=== PATIENT | female | born 1985 | race Two or more races ===

== ENCOUNTER 2025-02-09 19:59 | Outpatient (REF) | payer BC, SELFPAY ==
--- OUTSIDE RECORDS SUMMARY | 2025-02-09 14:40 | XMS_ITS | Encounter Summary ---
Author Organization [facility] Address [address] [place] [address] Care Team Providers Care Public Affairs Manager Name Role Phone Unavailable Primary Care Provider Unavailabl e Reason for Visit * Reason Comments Well Women Visit Routine Visit STI Screening Encounter Details Date Type Department Care Team (Latest Contact Info) Description 02/09/2025 2:40 PM EDT Routine [facility] [address] [facility] [place] [address] Krupa Hernandez PA [address] [facility] [address] [place], [facility]11 Well woman exam with routine gynecological exam; Second trimester ; 15 weeks gestation of ; Vaginal discharge; STD exposure Social History Tobacco Use Types Packs/Day Years Used Date Smoking Tobacco: Never Assessed Estimated Date of Delivery Comme nts Yes 07/29/2025 Based on Ultraso und Sex and Gender Information Value Date Recorded Sex Assigned at Female 09/29/2024 1:58 PM EST Legal Sex Female 6:58 PM EDT Gender Identity Female 09/29/2024 1:58 PM EST Sexual Orientation Bisexual 09/29/2024 1: 58 PM EST documented as of this encounter Last Filed Vital Signs Vital Sign Reading Time Taken Comments Blood Pressure 118/78 02/09/2025 3:21 PM EDT Pulse - - Temperature - - Respiratory Rate - - Oxygen Saturation - - Inhaled Oxygen Concentration - - Weight 123 kg (271 lb 12.8 oz) 02/09/2025 3:21 P M EDT Height - - Body Mass Index - - documented in this encounter Plan of Treatment Upcoming Encounters Date Type Department Care Team (Late st Contact Info) Description 03/09/2025 10:50 AM EDT Routine [facility] OB [address] [facility] [place] [phone] Greg Anderson, DO 102 [place] [address] 03/18/2025 9:00 AM EDT Office Visit [facility] OB [address] [facility] [place] [place] [address] Greg Anderson, DO [address] [place], [place] [id number] Scheduled Orders Name Type Priority Associated Diagnoses Orde r Schedule SURESWAB(R) ADVANCED VAGINITIS PLUS, TMA Pathology and Cytology Routine Vaginal discharge Ordered: 02/09/2025 CHLAMYDIA TRACHOMATIS (GENITO/STI) Lab Routine STD exposure Ordered: 02/09/2025 Neisseria gonorrhea DNA probe, direct Lab Routine STD exposure Ordered: 02/09/2025 Alpha fetoprotein, maternal Lab Routine Second trimester 15 weeks gestation of Expected: 02/09/2025 (Approximate), Expires: 08/11/2025 Pap Smear Pathology and Cytology Routine Well woman exam with routine gynecological exam Ordered: 02/09/2025 HPV DNA probe, amplified Microbiology Routine Well woman exam with routine gynecological exam Ordered: 02/09/2025 documented as of this encounter Procedures Procedure Name Priority Date/Time Associated Diagnosis Comments POCT URINALYSIS DIPSTICK Routine 02/09/2025 4:09 PM EDT Second trimester 15 weeks gestation of documented in this encounter Results * (ABNORMAL) POCT urinalysis dipstick manually resulted (02/09/2025 4:09 PM EDT) Color, UA Yellow Clarity, UA Clear Glucose, UA Negative Negative - 2000(110) ++++ mg/dL Bilirubin, UA Negative Negative - 4(70) +++ mg/dL Ketones, UA Positive Negative - 160(16) ++++ mg/dL Spec Grav, UA 1.020 1 - 1.03 Blood, UA Negative Negative - 50 Javi/mcL pH, UA 6.5 5 - 9 Protein, UA Negative Negative - 2000(20) ++++ mg/dL Urobilinogen, UA 1.0 0.2 - 12 mg/dL Leukocytes, UA Negative Negative - 500+++ Tomas/mcL Nitrite, UA Negative Negative - Positive Urine 02/09/2025 4:09 PM EDT Krupa PRINCE POINT OF CARE TEST ENTER/EDIT OR DERABLES Final Result documented in this encounter Visit Diagnoses Diagnosis Well woman exam with routine gynecological exam Routine gynecological examination Second trimester state, incidental 15 weeks gestation of Vaginal discharge Leukorrhea, not specified as infective STD exposure documented in this encounter
--- OUTSIDE RECORDS SUMMARY | 2025-02-09 20:04 | XMS_ITS | Encounter Summary ---
Author Organization [facility] Address [address] [facility] [place] [address] Care Team Providers Care Supervisor Pipe Finishing Name Role Phone Unavailable Primary Care Provider Unavailabl e Encounter Details Date Type Department Care Team (Late st Contact Info) Description 11/18/2024 Abstract [facility] OB [address] [place] [address] Greg Anderson DO [address] [place], [facility]11 Social History Tobacco Use Types Packs/Day Years Used Date Smoking Tobacco: Never Assessed Comments Unknown Sex and Gender Information Value Date Recorded Sex Assigned at Female 09/29/2024 1:58 PM EST Legal Sex Female 6:58 PM EDT Gender Identity Female 09/29/2024 1:58 PM EST Sexual Orientation Bisexual 09/29/2024 1: 58 PM EST documented as of this encounter Plan of Treatment Upcoming Encounters Date Type Department Care Team (Late st Contact Info) Description 03/09/2025 10:50 AM EDT Routine [facility] OB [address] [place] [address] Greg Anderson DO [address] [place], [facility]11 03/18/2025 9:00 AM EDT Office Visit [facility] [place] [address] Greg Anderson, [address] [place], [place] [id number] documented as of this encounter Visit Diagnoses Not on filedocumented in this encounter
--- OUTSIDE RECORDS SUMMARY | 2025-02-09 20:04 | XMS_ITS | Encounter Summary ---
Author Organization [facility] Address [address] [facility] [place] [address] Care Team Providers Care Building Stonecutter Name Role Phone Unavailable Primary Care Provider Unavailabl e Encounter Details Date Type Department Care Team (Late st Contact Info) Description 01/28/2025 Abstract [facility] [address] [facility] [place] [address] Greg Anderson DO [address] [place] [address] Radha [place], [place] [address] Social History Tobacco Use Types Packs/Day Years [...] Description 03/09/2025 10:50 AM EDT Routine [facility] [address] [facility] [place] [address] Greg Anderson DO [facility] [place] [address] 03/18/2025 9:00 AM EDT Office Visit [facility] [place] [place] [phone] Greg Anderson, DO [address] [facility] [address] [place], [place] [id number] documented as of this encounter Visit Diagnoses Not on filedocumented in this encounter
--- OUTSIDE RECORDS SUMMARY | 2025-02-09 20:04 | XMS_ITS | Clinical Summary ---
Author Organization [facility] tem Address [id number] [address] [place] [address] Care Team Providers Care Copywriter Name Role Phone Unavailable Primary Care Provider Unavailabl e Allergies Active Allergy Reactions Criticality Noted Date Comments Sulfa (Sulfonamide Antibiotics) Swelling 01/07 Medications omeprazole (PriLOSEC) 40 mg capsule Take 1 capsule (40 mg total) by mouth in the morning. Active venlafaxine XR (EFFEXOR-XR) 150 mg 24 hr capsule Take 1 capsule (150 mg total) by mouth in the morning. Active labetaloL (NORMODYNE) 200 mg tablet Take 1 tablet (200 mg total) by mouth 3 (three) times a day. Active no115/iron/foli c acid ( 19 ORAL) Take by mouth. Active Encounters Date Type Department Care Team Description 01/25/2025 Abstract [facility]aternal- Medicine at [facility] [address] [place] [phone] Venkat Landin MD from Last 3 Months Social History Tobacco Use Types Packs/Day Years Used Date Smoking Tobacco: Never Assessed Estimated Date of Delivery Comme nts Yes 07/29/2025 Based on Ultraso und Sex and Gender Information Value Date Recorded Sex Assigned at Not on file Legal Sex Female 11:20 AM EDT Gender Identity Not on file Sexual Orientation Not on file Plan of Treatment Upcoming Encounters Date Type Department Care Team (Late st Contact Info) Description 03/11/2025 9:15 AM EDT Appointment [facility] [address] [place] [phone] 03/11/2025 10:30 AM EDT Office Visit Maternal- Medicine at [facility] [address] [place] [phone] Venkat Landin MD [address] [place] [address] Health Maintenance Due Date Last Done Comments Depression Screening 1999 Tobacco Screening 1999 Adult BMI Screening 2005 DTaP,Tdap and Td Vaccines (1 - Tdap) 2006 Pap Smear 2008 Influenza Vaccine 05/10/2025 Medical Devices Not on file Procedures Procedure Name Priority Date/Time Associated Diagnosis Comments TYPE AND SCREEN Routine 01/07/2025 HEPATITIS B SURFACE ANTIGEN Routine 01/07/2025 HEPATITIS C(HCV) ANTIBODY W/REFLEX TO PCR Routine 01/07/2025 HIV 1&2 AB/AG SCREEN (P24 AG) Routine 01/07/2025 SYPHILIS TOTAL(UNKNOWN SYPHILIS STATUS) Routine 01/07/2025 DRUG SCREEN, URINE Routine 01/07/2025 from Last 3 Months Results * HIV 1&2 AB/AG Screen (P24 AG) (01/07/2025) HIV 1&2 AB/AG NON REACTIVE MAN UALLY TRANSCRIBED RESULTS Blood Venous blood / Unknown us Not In System Ref Prov LAB BLOOD ORDERABLES Lucia l Result MANUALLY TRANSCRIBED RESULTS * Syphilis Total (Unknown Syphilis Status) (01/07/2025) Syphilis NON REACTIVE MANUALL Y TRANSCRIBED RESULTS Blood Venous blood / Unknown us Not In System Ref Prov LAB BLOOD ORDERABLES Lucia l Result Performing Organization Address [facility] Co de Phone Number MANUALLY TRANSCRIBED RESULTS * Hepatitis C(HCV) Ab w/ Reflex to PCR (01/07/2025) Hepatitis C Antibody NON REACTIVE MANUALLY TRANSCRIBED RESULTS Blood Venous blood / Unknown us Not In System Ref Prov LAB BLOOD ORDERABLES Lucia l Result Performing Organization Address [facility] Co de Phone Number MANUALLY TRANSCRIBED RESULTS * Drug Screen, Urine (01/07/2025) Opiates NEGATIVE MANUALLY TRANSCRIBED RESULTS Amphetamine/Methamp hetamine NEGATIVE MANUALLY TRANSCRIBED RESULTS Cocaine Metabolite NEGATIVE M ANUALLY TRANSCRIBED RESULTS Phencyclidine NEGATIVE MANUAL LY TRANSCRIBED RESULTS Thc Marijuana, Urine NEGATIVE MANUALLY TRANSCRIBED RESULTS Barbiturates NEGATIVE MANUALL Y TRANSCRIBED RESULTS Benzodiazepines NEGATIVE MANU ALLY TRANSCRIBED RESULTS Urine us Not In System Ref Prov URINE ORDERABLES Final Re sult Performing Organization Address [facility] de Phone Number MANUALLY TRANSCRIBED RESULTS * Hepatitis B surface antigen (01/07/2025) Hepatitis B Surface Antigen NEGATIVE MANUALLY TRANSCRIBED RESULTS Blood Venous blood / Unknown us Not In System Ref Prov LAB BLOOD ORDERABLES Lucia l Result Performing Organization Address [facility] Co de Phone Number MANUALLY TRANSCRIBED RESULTS * Type and screen (01/07/2025) Abo/Rh(D) O Positive MANUALLY TRANSCRIBED RESULTS Antibody Screen NEGATIVE MANUALLY TRANSCRIBED RESULTS Blood Venous blood / Unknown us Not In System Ref Prov BLOOD BANK TEST ORDERABLE S Final Result Performing Organization Address [facility] Co de Phone Number MANUALLY TRANSCRIBED RESULTS from Last 3 Months Insurance ANTH
--- OUTSIDE RECORDS SUMMARY | 2025-02-09 20:04 | XMS_ITS | Encounter Summary ---
Author Organization [facility] Address [address] [facility] [place] [address] Care Team Providers Care Manager Floor Name Role Phone Unavailable Primary Care Provider Unavailabl e Encounter Details Date Type Department Care Team (Late st Contact Info) Description 02/08/2025 Abstract [facility] OB [address] [place] [address] Greg Anderson DO [address] [place] [address] Radha [place], [place] [address] Social History Tobacco Use Types Packs/Day Years [...] Description 03/09/2025 10:50 AM EDT Routine [facility] [address] [facility] [place] [address] Greg Anderson DO [facility] [place] [address] 03/18/2025 9:00 AM EDT Office Visit [facility] [place] [place] [address] Greg Anderson, DO [address] [facility] [address] [place] [place], [place] [id number] documented as of this encounter Visit Diagnoses Not on filedocumented in this encounter
--- OUTSIDE RECORDS SUMMARY | 2025-02-09 20:04 | XMS_ITS | Encounter Summary ---
Author Organization [facility] Address [address] [facility] [place] [address] Care Team Providers Care Senior Software Qa Engineer Name Role Phone Unavailable Primary Care Provider Unavailabl e Encounter Details Date Type Department Care Team (Late st Contact Info) Description 01/08/2025 Abstract [facility] [address] [facility] [place] [address] Greg Anderson DO [address] [place] [address] Radha [place], [place] [address] Social History Tobacco Use Types Packs/Day Years [...] Description 03/09/2025 10:50 AM EDT Routine [facility] [address] [facility] [place] [address] Greg Anderson DO [facility] [place] [address] 03/18/2025 9:00 AM EDT Office Visit [facility] [place] [place] [address] Greg Anderson, DO [address] [facility] [address] [place] [place], [place] [phone] documented as of this encounter Visit Diagnoses Not on filedocumented in this encounter
--- OUTSIDE RECORDS SUMMARY | 2025-02-09 20:04 | XMS_ITS | Clinical Summary ---
Author Organization [facility] Address [address] [place] [address] Care Team Providers Care Line Producer Name Role Phone Unavailable Primary Care Provider Unavailabl e Allergies Active Allergy Reactions Criticality Noted Date Comments Sulfa Antibiotics Swelling 03/30/2016 Medications Multiple Vitamins-Mineral s (THERAPEUTIC MULTIVITAMIN-MIN ERALS) tablet Take 1 tablet by mouth daily Active Phentermine HCl 30 MG TBDP Take 1 tablet by mouth daily Active Family History Medical History Relation Name Comments Heart Disease Father Kidney Disease Father Relation Name Status Comments Father Mother Alive Social History Tobacco Use Types Packs/Day Years Used Date Smoking Tobacco: Never Alcohol Use Standard Drinks/Week Comments Yes 0 (1 standard drink = 0.6 oz pur e alcohol) very occasional Comments Unknown Sex and Gender Information Value Date Recorded Sex Assigned at Not on file Legal Sex Female 4:35 PM EDT Gender Identity Not on file Sexual Orientation Not on file Last Filed Vital Signs Vital Sign Reading Time Taken Comments Blood Pressure 135/87 03/30/2016 3:03 PM EDT Pulse 108 03/30/2016 3:03 PM EDT Temperature 36.7 C (98.1 F) 03/30/2016 3:03 PM EDT Respiratory Rate 16 03/30/2016 3:03 PM EDT Oxygen Saturation 97% 03/30/2016 3:03 PM EDT Inhaled Oxygen Concentration - - Weight 84.4 kg (186 lb) 03/30/2016 3:03 PM EDT Height 162.6 cm (5' 4 ) 03/30/2016 3:03 PM EDT Body Mass Index 31.93 03/30/2016 3:03 PM EDT Plan of Treatment Not on file
--- OUTSIDE RECORDS SUMMARY | 2025-02-09 20:04 | XMS_ITS | Encounter Summary ---
Author Organization [facility] Address [address] [facility] [place] [address] Care Team Providers Care Barmaid Name Role Phone Unavailable Primary Care Provider Unavailabl e Encounter Details Date Type Department Care Team (Latest Contact Info) Description 02/09/2025 Travel Social History Tobacco Use Types Packs/Day Years [...] AM EDT Routine [facility] [address] [facility] [place] [address] Greg Anderson, DO [address] [place], [place] [id number] 03/18/2025 9:00 AM EDT Office Visit [facility] OB [address] [place] [address] Greg Anderson, DO [address] [place] [address] documented as of this encounter Visit Diagnoses Not on filedocumented in this encounter
--- OUTSIDE RECORDS SUMMARY | 2025-02-09 20:04 | XMS_ITS | Encounter Summary ---
Author Organization [facility] Address [address] [facility] [address] Care Team Providers Care Youth Associate Name Role Phone Unavailable Primary Care Provider Unavailabl e Encounter Details Date Type Department Care Team (Late st Contact Info) Description 02/08/2025 Telephone [facility] OB [address] [facility] [place] [address] Aylin Sims MA [address] [place] [address] [place] [address] Social History Tobacco Use Types Packs/Day Years [...] Description 03/09/2025 10:50 AM EDT Routine [facility] OB [address] [facility] [place] [address] Greg Anderson DO [address] [place], [place] [address] [place], [place] [address] 03/18/2025 9:00 AM EDT Office Visit [facility] [place] [address] [place] [address] Greg Anderson, [address] [place] [address] Scheduled Orders Name Type Priority Associated Diagnoses Orde r Schedule Glucose tolerance, 3 hours Lab Routine Elevated glucose tolerance test Expected: 02/08/2025 (Approximate), Expires: 02/08/2026 documented as of this encounter Visit Diagnoses Diagnosis Elevated glucose tolerance test Impaired glucose tolerance test documented in this encounter
--- OUTSIDE RECORDS SUMMARY | 2025-02-09 20:04 | XMS_ITS | Encounter Summary ---
Author Organization [facility] Address [address] [facility] [place] [address] Care Team Providers Care Tipping Machine Operator Name Role Phone Unavailable Primary Care Provider Unavailabl e Encounter Details Date Type Department Care Team (Late st Contact Info) Description 10/21/2024 Abstract [facility] [address] [facility] [place] [address] Sanaz Mcconnell LPN Social History Tobacco Use Types Packs/Day Years [...] Description 03/09/2025 10:50 AM EDT Routine [facility] OB [address] [place] [address] Greg Anderson, DO [address] [place] [address] 03/18/2025 9:00 AM EDT Office Visit [facility] [place] [address] Greg Anderson DO [address] [place] [address] documented as of this encounter Visit Diagnoses Not on filedocumented in this encounter
--- OUTSIDE RECORDS SUMMARY | 2025-02-09 20:04 | XMS_ITS | Encounter Summary ---
Author Organization [facility] Address [address] [facility] [place] [address] Care Team Providers Care Biochemistry Technologist Name Role Phone Unavailable Primary Care Provider Unavailabl e Encounter Details Date Type Department Care Team (Late st Contact Info) Description 02/09/2025 Abstract [facility] OB [address] [facility] [place] [address] Greg Anderson DO [address] [place] [address] Radha [place], [place] [address] Social History Tobacco Use Types Packs/Day Years [...] Description 03/09/2025 10:50 AM EDT Routine [facility] [address] [facility] [place] [address] Greg Anderson DO [facility] [place] [address] 03/18/2025 9:00 AM EDT Office Visit [facility] [place] [address] Greg Anderson, DO [address] [facility] [address] [place], [place] [id number] documented as of this encounter Visit Diagnoses Not on filedocumented in this encounter
--- OUTSIDE RECORDS SUMMARY | 2025-02-09 20:04 | XMS_ITS | Encounter Summary ---
Author Organization [facility] Address [address] [facility] [place] [address] Care Team Providers Care Director Surface Transportation Name Role Phone Unavailable Primary Care Provider Unavailabl e Encounter Details Date Type Department Care Team (Late st Contact Info) Description 10/29/2024 Abstract [facility] OB [address] [place] [address] Greg Anderson DO [address] [place], [facility]11 Social History Tobacco Use Types Packs/Day Years [...] Routine [facility] OB [address] [place] [address] Greg Anderson DO [address] [place], [facility] 03/18/2025 9:00 AM EDT Office Visit [facility] [place] [address] Greg Anderson, [address] [place], [place] [id number] documented as of this encounter Visit Diagnoses Not on filedocumented in this encounter
--- OUTSIDE RECORDS SUMMARY | 2025-02-09 20:04 | XMS_ITS | Encounter Summary ---
Author Organization [facility] Address [address] [facility] [place] [address] Care Team Providers Care Facing Grinder Name Role Phone Unavailable Primary Care Provider Unavailabl e Encounter Details Date Type Department Care Team (Late st Contact Info) Description 01/08/2025 Abstract [facility] [address] [facility] [place] [address] Greg Anderson DO [address] [place] [address] Radha [place], [place] [address] Social History Tobacco Use Types Packs/Day Years [...] Description 03/09/2025 10:50 AM EDT Routine [facility] [address] [facility] [address] Greg Anderson DO [facility] [place] [address] 03/18/2025 9:00 AM EDT Office Visit [facility] [place] [address] Greg Anderson, DO [address] [facility] [address] [place], [place] [address] documented as of this encounter Visit Diagnoses Not on filedocumented in this encounter
--- OUTSIDE RECORDS SUMMARY | 2025-02-09 20:04 | XMS_ITS | Encounter Summary ---
Author Organization [facility] Address [address] [place] [address] Care Team Providers Care Gate Technician Name Role Phone Unavailable Primary Care Provider Unavailabl e Encounter Details Date Type Department Care Team (Late st Contact Info) Description 11/17/2024 Abstract [facility] OB [address] [place] [address] Greg Anderson DO [address] [place], [facility]11 Social History Tobacco Use Types Packs/Day [...] Routine [facility] OB [address] [place] [address] Greg Anderson DO [address] [place], [facility] 03/18/2025 9:00 AM EDT Office Visit [facility] [place] [address] Greg Anderson, [address] [place], [place] [id number] documented as of this encounter Visit Diagnoses Not on filedocumented in this encounter
--- OUTSIDE RECORDS SUMMARY | 2025-02-09 20:04 | XMS_ITS | Clinical Summary ---
Author Organization [facility] Healthcare Address [address] [facility] [place] [address] Care Team Providers Care Leach Runner Name Role Phone Unavailable Primary Care Provider Unavailabl e Allergies Active Allergy Reactions Criticality Noted Date Comments Sulfa Antibiotics Swelling High 03/30/2016 Other Reaction(s): Swelling of throat Sulfamethoxazole-Trimethopri m Unknown 05/20/2024 Medications venlafaxine XR (Effexor XR) 150 MG 24 hr capsule Take 150 mg by mouth Daily 04/14/20 24 Active omeprazole (PriLOSEC) [address] capsule PLEASE SEE ATTACHED FOR DETAILED DIRECTIONS 10/11/19 25 Active labetalol (Normodyne) 200 MG tabletIndicati ons:Elevated blood pressure reading Take 1 tablet (200 mg) by mouth in the morning and 1 tablet (200 mg) in the evening and 1 tablet (200 mg) before bedtime. 90 tablet 12/29/19 026 Active MV-Min-Fe Fum-FA-DHA ( 1 PO) Take by mouth Active aspirin 81 MG EC tablet Take 81 mg by mouth Daily Active amLODIPine (Norvasc) 10 MG tablet Take 10 mg by mouth Daily 02/28/20 24 025 Discontinued labetalol (Normodyne) 100 MG tablet Take 1 tablet by mouth in the morning and 1 tablet before bedtime. 10/19/19 25 025 Discontinued venlafaxine XR (Effexor XR) 75 MG 24 hr capsule Take 75 mg by mouth Daily 07/10/20 24 025 Discontinued cephalexin (Keflex) 500 MG capsuleIndicat ions:Escherich ia coli (E. coli) infection Take 1 capsule (500 mg) by mouth in the morning and 1 capsule (500 mg) in the evening and 1 capsule (500 mg) before bedtime. Do all this for 7 days. 21 capsule 01/12/20 25 025 Active Problems Estimated Date of Delivery Comme nts Yes 07/29/2025 Based on Ultraso und No known active problems Encounters Date Type Department Care Team Description 02/09/2025 2:40 PM EDT Routine [facility] [address] [place] [address] Krupa Hernandez PA Well woman exam with routine gynecological exam; Second trimester ; 15 weeks gestation of ; Vaginal discharge; STD exposure 02/09/2025 Travel 02/09/2025 Abstract [facility] [address] [place] [address] Greg Anderson, 02/08/2025 Telephone [facility] [address] [place], [place] [address] [place] [address] Aylin Sims MA 02/08/2025 Abstract [facility] [place] [address] [place] [address] Greg Anderson, 01/28/2025 Abstract [facility] [place] [address] Greg Anderson, 01/14/2025 9:20 AM EDT Routine [facility] [address] [place] [address] Greg Anderson, First trimester ; 12 weeks gestation of ; induced hypertension, antepartum; Antepartum multigravida of advanced maternal age; Hypertension affecting , antepartum 01/14/2025 Bamboo flowsheet [facility] [address] [place] [address] Greg Anderson, 01/13/2025 Telephone [facility] [address] [place] [address] Greg Anderson, DO 01/11/2025 Abstract [facility] [address] [place] [address] [place] [address] Greg Anderson, DO 01/11/[address] [facility] [address] [place] [address] Greg Anderson, DO 01/11/2025 Travel 01/08/2025 Abstract [facility] [address] [place] [address] [place] [address] Greg Anderson, DO 01/08/2025 Abstract [facility] [address] [place] [address] [place] [address] Greg Anderson, DO 12/28/2024 Telephone [facility] [address] [place] [address] Sanaz Mcconnell LPN 12/24/2024 1:00 PM EDT Initial [facility] [address] [place] [address] GA: 9w0d 12/24/2024 12:30 PM EDT Ancillary Procedure [facility] [address] [place] [address] Missed menses 12/23/2024 Travel 11/18/2024 Abstract [facility] [address] [place] [address] Grge Anderson, DO 11/17/2024 Abstract [facility] [address] [place] [address] [place] [address] Greg Anderson, DO 11/16/20[address]phone [facility] [address] [place] [address] Tami Leyva LPN from Last 3 Months Social History Tobacco [...] Orientation Bisexual 09/29/2024 1: 58 PM EST Last Filed Vital Signs Vital Sign Reading Time Taken Comments Blood Pressure 118/78 02/09/2025 3:21 PM EDT Pulse - - Temperature - - Respiratory Rate - - Oxygen Saturation - - Inhaled Oxygen Concentration - - Weight 123 kg (271 lb 12.8 oz) 02/09/2025 3:21 P M EDT Height - - Body Mass Index - - Plan of Treatment Upcoming Encounters Date Type Department Care Team (Late st Contact Info) Description 03/09/2025 10:50 AM EDT [facility] [address] [facility] [place] [place] [address] Greg Anderson [address] [place] [address] 03/18/2025 9:00 AM EDT Office Visit [facility] [address] [facility] [place] [place] [address] Greg Andesron, [address] [place] [address] Health Maintenance Due Date Last Done Comments Pap Smear 2008 Cervical Cancer Screening 2017 HPV/Cotest 2017 Influenza Vaccine (Season Ended) 2025 06/15/20 22, 05/23/2021 Procedures Procedure Name Priority Date/Time Associated Diagnosis Comments POCT URINALYSIS DIPSTICK Routine 02/09/2025 4:09 PM EDT Second trimester 15 weeks gestation of POCT URINALYSIS DIPSTICK Routine 01/14/2025 9:47 AM EDT First trimester POCT URINALYSIS DIPSTICK Routine 12/24/2024 1:31 PM EDT Missed menses POCT , URINE Routine 12/24/2024 1:30 PM EDT Missed menses US OB TRANSVAGINAL Routine 12/24/2024 12 :42 PM EDT Missed menses from Last 3 Months Results * (ABNORMAL) POCT urinalysis dipstick manually resulted (02/09/2025 4:09 PM EDT) Only the most recent of3 resultswithin the time period is included. Color, UA Yellow Clarity, UA Clear Glucose, [...] CARE TEST ENTER/EDIT OR DERABLES Final Result * (ABNORMAL) POCT , urine manually resulted (12/24/2024 1:30 PM EDT) Preg Test, Ur Positive Negative Urine 12/24/2024 1:30 PM EDT us Greg Anderson DO POINT OF CARE TEST ENTER/EDIT OR DERABLES Final Result * US OB transvaginal (12/24/2024 12:42 PM EDT) Anatomical Region Laterality Modality Body Ultrasound 12/26/2024 6:52 PM EDT Narrative 12/26/2024 6:52 PM EDT EXAM: US OB TRANSVAGINAL HISTORY: Dating. COMPARISON: None available. TECHNIQUE: Two-dimensional transvaginal grayscale ultrasound imaging of the pelvis was performed. Color Doppler evaluation of the ovaries was also performed. FINDINGS: The uterus demonstrates a normal homogeneous echotexture. There is a 2.0 cm posterior fibroid. A cervix measures 5.1 cm in length and the cervical os is closed. The right ovary measures 3.3 x 1.9 x 2.2 cm and demonstrates a normal echotexture. There is normal color Doppler flow. The left ovary is not visualized. No fluid is present within the cul-de-sac. There is a single, live intrauterine gestation identified with a heart rate of 181 beats per minute and a crown-rump length measurement of 2.2 cm, correlating to a gestational age of 9 weeks 0 days (+/- 6 days). There is no subchorionic hemorrhage visualized. A yolk sac is visualized. IMPRESSION: 1. Single, live intrauterine gestation with today's ultrasound measurements correlating to a gestational age of 9 weeks 0 days (+/- 6 days). MARCOS by today's ultrasound is 07/29/2025. 2. tachycardia. A short-term follow-up ultrasound is recommended if monitor heart rate. 3. Uterine fibroid. 4. Normal color Doppler evaluation of the right ovary, the left ovary was not visualized. Interpreted by: Electronically signed by ZACHARY GAINES II, MD, PHD at 26-Dec-2024 06:50:25 PM [facility] Procedure Note Zachary Gaines MD - 12/26/2024 EXAM: US OB TRANSVAGINAL HISTORY: Dating. COMPARISON: None available. TECHNIQUE: Two-dimensional transvaginal grayscale ultrasound imaging ofthe pelvis was performed. Color Doppler evaluation of the ovaries was alsoperformed. FINDINGS: The uterus demonstrates a normal homogeneous echotexture. There is a 2.0cm posterior fibroid. A cervix measures 5.1 cm in length and the cervicalos is closed. The right ovary measures 3.3 x 1.9 x 2.2 cm and demonstrates a normalechotexture. There is normal color Doppler flow. The left ovary is not visualized. No fluid is present within the cul-de-sac. There is a single, live intrauterine gestation identified with a fetalheart rate of 181 beats per minute and a crown-rump length measurement of2.2 cm, correlating to a gestational age of 9 weeks 0 days (+/- 6 days).There is no subchorionic hemorrhage visualized. A yolk sac isvisualized. IMPRESSION: 1. Single, live intrauterine gestation with today's ultrasoundmeasurements correlating to a gestational age of 9 weeks 0 days (+/- 6days). MARCOS by today's ultrasound is 07/29/2025. 2. tachycardia. A short-term follow-up ultrasound is recommended ifmonitor heart rate. 3. Uterine fibroid. 4. Normal color Doppler evaluation of the right ovary, the left ovary wasnot visualized. Interpreted by: Electronically signed by ZACHARY GAINES II, MD, PHD 06:50:25 PM [facility] us Greg Justin DO IMG OB US PROCEDURES Final Resul t from Last 3 Months Insurance [facility]
[2025-02-12 09:13] LABS: Age Gdln ACOG Testing Note (.); HPV Aptima Negative (Negative); IGP, Aptima HPV, rfx 16/18,45 Note (.)
== END 2025-02-09 20:00 | disposition home or self-care (01) ==
LOC: LAB 19:59
PROVIDERS: Visit Provider Physician Assistant
DX: Z01.419 Encounter for gynecological examination (general) (routine) without abnormal findings (principal)
CPT/HCPCS: 87624; 88175

== ENCOUNTER 2025-03-05 09:03 | Outpatient (OUT) | payer BC, SELFPAY ==
--- OUTSIDE RECORDS SUMMARY | 2025-03-05 09:14 | XMS_ITS | Encounter Summary ---
Author Organization [facility] Address [address] [facility] [place] [address] Care Team Providers Care Safety Engineer Name Role Phone Unavailable Primary Care Provider Unavailabl e Encounter Details Date Type Department Care Team (Late st Contact Info) Description 02/09/2025 Abstract [facility] [address] [facility] [place] [address] Greg Anderson DO [address] [place] [address] Radha [place], [place] [address] Social History Tobacco Use Types Packs/Day Years [...] Description 03/09/2025 10:50 AM EDT Routine [facility] [address] [facility] [place] [address] Greg Anderson DO [facility] [place] [address] 03/18/2025 9:00 AM EDT Office Visit [facility] [place] [place] [address] Greg Anderson, DO [address] [facility] [address] [place], [place] [id number] documented as of this encounter Visit Diagnoses Not on filedocumented in this encounter
--- OUTSIDE RECORDS SUMMARY | 2025-03-05 09:14 | XMS_ITS | Clinical Summary ---
Author Organization [facility] Healthcare Address [address] [facility] [place] [place] [address] Care Team Providers Care Head Banquet Waiter/Waitress Name Role Phone Unavailable Primary Care Provider Unavailabl e Allergies Active Allergy Reactions Criticality Noted Date Comments Sulfa Antibiotics Swelling High 03/30/2016 Other Reaction(s): Swelling of throat Sulfamethoxazole-Trimethopri m Unknown 05/20/2024 Medications venlafaxine XR (Effexor XR) 150 MG 24 hr capsule Take 150 mg by mouth Daily 4 Active omeprazole (PriLOSEC) [address] capsule PLEASE SEE ATTACHED FOR DETAILED DIRECTIONS 5 Active labetalol (Normodyne) 200 MG tabletIndicatio ns:Elevated blood pressure reading Take 1 tablet (200 mg) by mouth in the morning and 1 tablet (200 mg) in the evening and 1 tablet (200 mg) before bedtime. 90 tablet 11 5 12/29/19 26 Active MV-Min-Fe Fum-FA-DHA ( 1 PO) Take by mouth Active aspirin 81 MG EC tablet Take 81 mg by mouth Daily Active Active Problems Estimated Date of Delivery Comme nts Yes 07/29/2025 Based on Ultraso und No known active problems Encounters Date Type Department Care Team Description 02/23/2025 Orders Only [facility] OB [address] [place] [address] Tami Leyva LPN 02/09/2025 2:40 PM EDT Routine [facility] OB [address] [place] [address] Krupa Hernandez PA Well woman exam with routine gynecological exam; Second trimester ([facility]); 15 weeks gestation of ([facility]); Vaginal discharge; STD exposure 02/09/2025 Clinisync Result Encounter [facility] External Department Unsolicited Krupa Hernandez PA 02/09/2025 External Result Encounter [facility] External Department Unsolicited Krupa Hernandez PA 02/09/2025 Travel 02/09/2025 Abstract [facility] [address] [place] [address] Greg Anderson, 02/08/2025 Telephone [facility] [address] [place] [address] Aylin Sims MA 02/08/2025 Abstract [facility] [address] [place] [address] Greg Anderson, 01/28/2025 Abstract [facility] [address] [place] [address] Greg Anderson, 01/14/2025 9:20 AM EDT Routine [facility] [address] [place] [address] Greg Anderson, DO First trimester ([facility]); 12 weeks gestation of ([facility]); induced hypertension, antepartum ([facility]); Antepartum multigravida of advanced maternal age ([facility]); Hypertension affecting , antepartum ([facility]) 01/14/2025 Bamboo flowsheet [facility]OM[facility] [address] [place] [address] Greg Anderson, 01/13/2025 Telephone [facility] [address] [place] [address] Greg Anderson, DO 01/11/2025 Abstract [facility] [address] [place] [address] Greg Anderson, DO 01/11/2025 Telephone [facility] OB [address] [facility] [place] [address] Greg Anderson, DO 01/11/2025 Travel 01/08/2025 Abstract [facility] OB [address] [facility] [place] [address] Greg Anderson, DO 01/08/2025 Abstract [facility] OB [address] [place] [address] [place] [address] Greg Anderson, DO 12/28/2024 Telephone [facility] OB [address] [place] [address] [place] [address] Sanaz Mcconnell, COPY OPERATOR 12/24/2024 1:00 PM EDT Initial [facility] [address] [place] [address] GA: 9w0d 12/24/2024 12:30 PM EDT Ancillary Procedure [facility] OB [address] [place] [address] [place] [address] Missed menses 12/23/2024 Travel from Last 3 Months Social History Tobacco [...] AM EDT Routine [facility] [address] [facility] [place] [address] Greg Anderson, DO [address] [place] [address] 03/18/2025 9:00 AM EDT Office Visit [facility] [address] [facility] [place] [address] Greg Anderson, DO [address] [facility] [place] [address] Health Maintenance Due Date Last Done Comments HPV/Cotest 2017 Influenza Vaccine (Season Ended) 2025 06/15/20, 05/23/2021 Cervical Cancer Screening 02/10/2028 Pap Smear 02/10/2028 02/09/2025 Procedures Procedure Name Priority Date/Time Associated Diagnosis Comments POCT URINALYSIS DIPSTICK Routine 02/09/2025 4:09 PM EDT Second trimester ([facility]) 15 weeks gestation of ([facility]) RECURRENT VAGINITIS (HTRX) Routine 02/09/2025 3:57 PM EDT IGP,APTIMA HPV,AGE GDLN Routine 02/09/2025 2:55 PM EDT PAP SMEAR Routine 02/09/2025 12:00 AM EDT POCT URINALYSIS DIPSTICK Routine 01/14/2025 9:47 AM EDT First trimester ([facility]) POCT URINALYSIS DIPSTICK Routine 12/24/2024 1:31 PM [...] TEST ENTER/EDIT OR DERABLES Final Result * RECURRENT VAGINITIS (HTRX) (02/09/2025 3:57 PM EDT) ATOPOBIUM VAGINAE 0.000 19.961 - 24.689 ppm 02/10/2025 7:09 AM EDT [facility] ATOPOBIUM VAGINAE Not Detected 19.961 - 24.689 ppm 02/10/2025 7:09 AM EDT [facility] BVAB 2,3 (BACTERIAL VAGINOSIS ASSOCIATED BACTERIA 2, 3); MOBILUNCUS SPP 0.000 19.961 - 24.689 ppm 02/10/2025 7:09 AM EDT [facility] BVAB 2,3 (BACTERIAL VAGINOSIS ASSOCIATED BACTERIA 2, 3); MOBILUNCUS SPP Not Detected 19.961 - 24.689 ppm 02/10/2025 7:09 AM EDT [facility] RINA ALBICANS, PARAPSILOSIS, TROPICALIS 0.000 19.961 - 30.770 ppm 02/10/2025 7:09 AM EDT [facility] [place] RINA ALBICANS, PARAPSILOSIS, TROPICALIS Not Detected 19.961 - 30.770 ppm 02/10/2025 7:09 AM EDT [facility] [place] RINA GLABRATA 0.000 23.000 - 32.138 ppm 02/10/2025 7:09 AM EDT [facility] [place] RINA GLABRATA Not Detected 23.000 - 32.138 ppm 02/10/2025 7:09 AM EDT [facility] [place] RINA KRUSEI 0.000 23.000 - 32.271 ppm 02/10/2025 7:09 AM EDT [facility] [place] RINA KRUSEI Not Detected 23.000 - 32.271 ppm 02/10/2025 7:09 AM EDT [facility] [place] CHLAMYDIA TRACHOMATIS 0.000 23.000 - 31.467 ppm 02/10/2025 7:09 AM EDT [facility] [place] CHLAMYDIA TRACHOMATIS Not Detected 23.000 - 31.467 ppm 02/10/2025 7:09 AM EDT [facility] [place] GARDNERELLA VAGINALIS 0.000 19.961 - 24.689 ppm 02/10/2025 7:09 AM EDT [facility] [place] GARDNERELLA VAGINALIS Not Detected 19.961 - 24.689 ppm 02/10/2025 7:09 AM EDT [facility] [place] MEGASPHAERA (TYPES 1, 2) 0.000 19.961 - 24.689 ppm 02/10/2025 7:09 AM EDT [facility] MEGASPHAERA (TYPES 1, 2) Not Detected 19.961 - 24.689 ppm 02/10/2025 7:09 AM EDT [facility] [place] NEISSERIA GONORRHOEAE 0.000 23.000 - 32.117 ppm 02/10/2025 7:09 AM EDT [facility] [place] NEISSERIA GONORRHOEAE Not Detected 23.000 - 32.117 ppm 02/10/2025 7:09 AM EDT [facility] [place] TRICHOMONAS VAGINALIS 0.000 23.000 - 32.119 ppm 02/10/2025 7:09 AM EDT [facility] TRICHOMONAS VAGINALIS Not Detected 23.000 - 32.119 ppm 02/10/2025 7:09 AM EDT [facility] MYCOPLASMA GENITALIUM 0.000 19.961 - 24.689 ppm 02/10/2025 7:09 AM EDT [facility] MYCOPLASMA GENITALIUM Not Detected 19.961 - 24.689 ppm 02/10/2025 7:09 AM EDT [facility] Tissue 02/09/2025 3:57 PM EDT 02/10/2025 2:51 AM EDT us Krupa [facility] BLOOD ORDERABLES Final Resul t [facility] [address] [facility] [place] [address] * IGP,APTIMA HPV,AGE GDLN (02/09/2025 2:55 PM EDT) AGE GDLN ACOG TESTING Note . [facility] Comment: TESTS RESULT FLAG UNITS REF RANGE LAB Clinician Provided Cytology Information Source.............Endocervix No. of containers..01 ThinPrep Vial Age Algo ACOG Sharmila... 30-65 01 FLAG LEGEND: L-Low Normal,H-High Normal,LL-Alert Low,HH-Alert High <-Panic Low,>-Panic High,A-Abnormal,AA-Critical Abnormal Performed at: 01 =G [facility] [address] [place] [address] Keiry Hawthorne MD, IGP, APTIMA HPV, RFX 16/18,45 Note . [facility] Comment: TESTS RESULT FLAG UNITS REF RANGE LAB DIAGNOSIS: 02 NEGATIVE FOR INTRAEPITHELIAL LESION OR MALIGNANCY. FUNGAL ORGANISMS MORPHOLOGICALLY CONSISTENT WITH RINA SPECIES ARE PRESENT. Specimen adequacy: 02 Satisfactory for evaluation. No endocervical component is identified. Performed by: Chapis Pollock, Airline Customer Service Agent ([facility]) . 02 Note: Note 02 The Pap smear is a screening test designed to aid in the detection of premalignant and malignant conditions of the uterine cervix. It is not a diagnostic procedure and should not be used as the sole means of detecting cervical cancer. Both false-positive and false-negative reports do occur. Test Methodology: Note 02 This liquid based ThinPrep(R) pap test was screened with the use of an image guided system. HPV Genotype Reflex Note 02 Criteria not met, HPV Genotype not performed. FLAG LEGEND: L-Low Normal,H-High Normal,LL-Alert Low,HH-Alert High <-Panic Low,>-Panic High,A-Abnormal,AA-Critical Abnormal Performed at: [address] [place] [address] Keiry Hawthorne MD, HPV APTIMA Negative Negative [facility] Comment: This nucleic acid amplification test detects fourteen high- risk HPV types (16,18,31,33,35,39,45,51,52,56,58,59,66,68) without differentiation. Performed at: =[facility] [id number] Reducing Machine Operator: Keiry Hawthorne MD, Phone: [phone] Performed at: [address] [id number] Reducing Machine Operator: Keiry Hawthorne MD, Phone: [phone] 02/09/2025 2:55 PM EDT 02/09/2025 8:38 PM EDT Narrative [facility] - 02/12/2025 9:13 AM EDT [facility] Krupa [facility] BLOOD ORDERABLES Final Resul t Performing Organization Address [facility]/ZIP Co de Phone Number [facility] * Pap Smear (02/09/2025 12:00 AM EDT) Swab Cervical swab / Unknown Krupa [facility] CYTOLOGY ORDERABLES Final Re sult Performing Organization Address [facility]/ZIP Co de Phone Number EXTERNAL LAB * (ABNORMAL) POCT , urine manually resulted (12/24/2024 1:30 PM EDT) Preg Test, Ur Positive Negative Urine 12/24/2024 1:30 PM EDT Greg Anderson DO POINT OF CARE TEST [...] II, MD, PHD at 26-Dec-2024 06:50:25 PM [facility] Procedure Note Zachary Gaines MD - [...] ZACHARY GAINES II, MD, PHD 06:50:25 PM [facility] us Greg Justin DO IMG OB US PROCEDURES Final Resul t from Last 3 Months Insurance [facility]
--- OUTSIDE RECORDS SUMMARY | 2025-03-05 09:14 | XMS_ITS | Encounter Summary ---
Author Organization [facility] Address [address] [facility] [place] [address] Care Team Providers Care Corporate Director Of Pharmacy Name Role Phone Unavailable Primary Care Provider Unavailabl e Encounter Details Date Type Department Care Team (Late st Contact Info) Description 01/11/2025 Abstract [facility] [address] [facility] [place] [address] Greg Anderson DO [address] [place] [address] Radha [place], [place] [address] Social History Tobacco Use Types Packs/Day Years [...] Description 03/09/2025 10:50 AM EDT Routine [facility] [address] [facility] [address] Greg Anderson DO [facility] [place] [address] 03/18/2025 9:00 AM EDT Office Visit [facility] [place] [place] [address] Greg Anderson, DO [address] [facility] [address] [place], [place] [id number] documented as of this encounter Visit Diagnoses Not on filedocumented in this encounter
--- OUTSIDE RECORDS SUMMARY | 2025-03-05 09:14 | XMS_ITS | Encounter Summary ---
Author Organization [facility] Address [address] [facility] [place] [address] Care Team Providers Care Rug Setter Velvet Name Role Phone Unavailable Primary Care Provider Unavailabl e Encounter Details Date Type Department Care Team (Late st Contact Info) Description 11/18/2024 Abstract [facility] OB [address] [place] [address] Greg Anderson DO [address] [place], [facility] Social History Tobacco Use Types Packs/Day Years [...] EDT Routine [facility] OB [address] [place] [address] Greg Anderson DO [address] [place], [facility] 03/18/2025 9:00 AM EDT Office Visit [facility] [place] [address] Greg Anderson, [address] [place] [place], [place] [id number] documented as of this encounter Visit Diagnoses Not on filedocumented in this encounter
--- OUTSIDE RECORDS SUMMARY | 2025-03-05 09:14 | XMS_ITS | Encounter Summary ---
Author Organization [facility] Address [address] [facility] [place] [address] Care Team Providers Care Peoplesoft Hcm Developer Name Role Phone Unavailable Primary Care Provider Unavailabl e Encounter Details Date Type Department Care Team (Late st Contact Info) Description 10/21/2024 Abstract [facility] [address] [facility] [place] [address] Sanaz Mcconnell LPN Social History Tobacco [...] Description 03/09/2025 10:50 AM EDT Routine [facility] [address] [place] [address] Greg Anderson, DO [address] [place] [address] 03/18/2025 9:00 AM EDT Office Visit [facility] [place] [place] [address] Greg Anderson DO [address] [place] [address] documented as of this encounter Visit Diagnoses Not on filedocumented in this encounter
--- OUTSIDE RECORDS SUMMARY | 2025-03-05 09:14 | XMS_ITS | Encounter Summary ---
Author Organization [facility] Address [address] [facility] [place] [address] Care Team Providers Care Customer Sales Specialist Name Role Phone Unavailable Primary Care Provider Unavailabl e Encounter Details Date Type Department Care Team (Late st Contact Info) Description 11/17/2024 Abstract [facility] OB [address] [place] [address] Greg Anderson DO [address] [place], [facility]11 Social History Tobacco Use Types Packs/Day Years [...] Routine [facility] [address] [place] [address] Greg Anderson DO [address] [place], [facility] 03/18/2025 9:00 AM EDT Office Visit [facility] [place] [address] Greg Anderson, [address] [place], [place] [id number] documented as of this encounter Visit Diagnoses Not on filedocumented in this encounter
--- OUTSIDE RECORDS SUMMARY | 2025-03-05 09:14 | XMS_ITS | Clinical Summary ---
Author Organization [facility] Address [address] [place] [address] Care Team Providers Care Roll Hauler Name Role Phone Unavailable Primary Care Provider [...]
--- OUTSIDE RECORDS SUMMARY | 2025-03-05 09:14 | XMS_ITS | Encounter Summary ---
Author Organization [facility] Address [address] [facility] [place] [address] Care Team Providers Care Hydraulic Jack Operator Name Role Phone Unavailable Primary Care Provider Unavailabl e Encounter Details Date Type Department Care Team (Late st Contact Info) Description 02/08/2025 Telephone [facility] [address] [facility] [place] [address] Aylin Sims MA [address] [place] [address] [place] [address] Social History Tobacco Use Types Packs/Day Years [...] Description 03/09/2025 10:50 AM EDT Routine [facility] OB [address] [facility] [place] [address] Greg Anderson DO [address] [place], [place] [address] [place] [address] Te[place], [place] [address] 03/18/2025 9:00 AM EDT Office Visit [facility] [place] [address] [place] [address] Greg Anderson, [address] [place] [address] Scheduled Orders Name Type Priority Associated Diagnoses Orde r Schedule Glucose tolerance, 3 hours Lab Routine Elevated glucose tolerance test Expected: 02/08/2025 (Approximate), Expires: 02/08/2026 documented as of this encounter Visit Diagnoses Diagnosis Elevated glucose tolerance test Impaired glucose tolerance test documented in this encounter
--- OUTSIDE RECORDS SUMMARY | 2025-03-05 09:14 | XMS_ITS | Encounter Summary ---
Author Organization [facility] Address [address] [facility] [place] [address] Care Team Providers Care Director Sales And Marketing Name Role Phone Unavailable Primary Care Provider Unavailabl e Encounter Details Date Type Department Care Team (Late st Contact Info) Description 02/08/2025 Abstract [facility] OB [address] [facility] [place] [address] Greg Anderson DO [address] [place] [address] Radha [place], [place] [address] Social History Tobacco Use Types Packs/Day Years [...] Description 03/09/2025 10:50 AM EDT Routine [facility] 102 [facility] [place] [address] Greg Anderson DO [facility] [place] [address] 03/18/2025 9:00 AM EDT Office Visit [facility] [place] [place] [address] Greg Anderson, DO [address] [facility] [address] [place], [place] [id number] documented as of this encounter Visit Diagnoses Not on filedocumented in this encounter
--- OUTSIDE RECORDS SUMMARY | 2025-03-05 09:14 | XMS_ITS | Encounter Summary ---
Author Organization [facility] Address [address] [facility] [address] Care Team Providers Care Cook Fast Food Name Role Phone Unavailable Primary Care Provider Unavailabl e Encounter Details Date Type Department Care Team (Late st Contact Info) Description 10/29/2024 Abstract [facility] [address] [place] [address] Greg Anderson DO [address] [place], [facility]11 Social History Tobacco Use Types Packs/Day [...] Routine [facility] [address] [place] [address] Greg Anderson DO [address] [place], [facility]11 03/18/2025 9:00 AM EDT Office Visit [facility] [place] [address] Greg Anderson, [address] [place]j [place], [place] [id number] documented as of this encounter Visit Diagnoses Not on filedocumented in this encounter
--- OUTSIDE RECORDS SUMMARY | 2025-03-05 09:14 | XMS_ITS | Encounter Summary ---
Author Organization [facility] Address [address] [facility] [place] [address] Care Team Providers Care Utility Driver Name Role Phone Unavailable Primary Care Provider Unavailabl e Encounter Details Date Type Department Care Team (Late st Contact Info) Description 01/08/2025 Abstract [facility] 102 [facility] [place] [address] Greg Anderson DO [address] [place] [address] Radha [place], [place] [address] Social History Tobacco Use Types Packs/Day Years [...] Description 03/09/2025 10:50 AM EDT Routine [facility] 102 [facility] [place] [address] Greg Anderson DO [facility] [place] [address] 03/18/2025 9:00 AM EDT Office Visit [facility] [place] [address] Greg Anderson, DO [address] [facility] [address] [place], [place] [id number] documented as of this encounter Visit Diagnoses Not on filedocumented in this encounter
--- OUTSIDE RECORDS SUMMARY | 2025-03-05 09:14 | XMS_ITS | Encounter Summary ---
Author Organization [facility] Address [address] [facility] [place] [address] Care Team Providers Care Sand Cutter Name Role Phone Unavailable Primary Care Provider Unavailabl e Encounter Details Date Type Department Care Team (Late st Contact Info) Description 01/28/2025 Abstract [facility] [address] [facility] [place] [address] Greg Anderson DO [address] [place] [address] Radha [place], [place] [address] Social History Tobacco Use Types Packs/Day Years [...] Description 03/09/2025 10:50 AM EDT Routine [facility] 102 [place] [address] Greg Anderson DO [facility] [place] [address] 03/18/2025 9:00 AM EDT Office Visit [facility] [place] [address] Greg Anderson, DO [address] [facility] [address] [place] [place], [place] [id number] documented as of this encounter Visit Diagnoses Not on filedocumented in this encounter
--- OUTSIDE RECORDS SUMMARY | 2025-03-05 09:14 | XMS_ITS | Clinical Summary ---
Author Organization [facility] tem Address [id number] [address] [place] [address] Care Team Providers Care Double Ending Machine Operator Name Role Phone Unavailable Primary [...] Team Description 01/25/2025 Abstract [facility] at [facility] [address] [place] [address] Venkat Landin MD from Last 3 Months [...] Info) Description 03/11/2025 9:15 AM EDT Appointment [facility] [address] [place] [address] 03/11/2025 10:30 AM EDT Office Visit [facility]- [facility] at [facility] [address] [place] [address] Venkat Landin MD [address], [address] [place] [address] Health Maintenance Due Date Last Done Comments [...] ORDERABLES Lucia l Result Performing Organization Address [facility] Co de Phone Number MANUALLY TRANSCRIBED RESULTS * Hepatitis C(HCV) Ab w/ Reflex to PCR (01/07/2025) Hepatitis C Antibody NON REACTIVE MANUALLY TRANSCRIBED RESULTS Blood Venous blood / Unknown us Not In System Ref Prov LAB BLOOD ORDERABLES Lucia l Result Performing Organization Address [facility] Co de Phone Number MANUALLY TRANSCRIBED RESULTS [...] ORDERABLES Final Re sult Performing Organization Address [facility] de Phone Number MANUALLY TRANSCRIBED RESULTS * Hepatitis B surface antigen (01/07/2025) Hepatitis B Surface Antigen NEGATIVE MANUALLY TRANSCRIBED RESULTS Blood Venous blood / Unknown us Not In System Ref Prov LAB BLOOD ORDERABLES Lucia l Result Performing Organization Address [facility] Co de Phone Number MANUALLY TRANSCRIBED RESULTS * Type and screen (01/07/2025) Abo/Rh(D) O Positive MANUALLY TRANSCRIBED RESULTS Antibody Screen NEGATIVE MANUALLY TRANSCRIBED RESULTS Blood Venous blood / Unknown us Not In System Ref Prov BLOOD BANK TEST ORDERABLE S Final Result Performing Organization Address [facility] Co de Phone Number MANUALLY TRANSCRIBED RESULTS from Last 3 Months Insurance ANTH
--- OUTSIDE RECORDS SUMMARY | 2025-03-05 09:14 | XMS_ITS | Encounter Summary ---
Author Organization [facility] Address [address] [facility] [place] [address] Care Team Providers Care Deli Cook Name Role Phone Unavailable Primary Care Provider Unavailabl e Encounter Details Date Type Department Care Team (Late st Contact Info) Description 01/08/2025 Abstract [facility] [address] [place] [address] Greg Anderson DO [address] [place] [address] Radha [place], [place] [address] Social History Tobacco Use Types Packs/Day Years [...] Description 03/09/2025 10:50 AM EDT Routine [facility] 102 [facility] [place] [address] Greg Anderson DO [facility] [address] 03/18/2025 9:00 AM EDT Office Visit [facility] [place] [address] Greg Anderson, DO [address] [facility] [address] [place], [place] [id number] documented as of this encounter Visit Diagnoses Not on filedocumented in this encounter
[2025-03-07 00:08] LABS: AFP Value 35.5 ng/mL (.); Gest. Age on Collection Date 19.1 weeks (.); Gestat. Age Based On Ultrasound (.); Insulin Dep Diabetes No (.); Maternal Age At EDD 38.4 yr (.); OSBR Risk 1 IN 10000 (.); Results Report (.)
== END 2025-03-05 09:04 | disposition home or self-care (01) ==
LOC: LAB 09:12
PROVIDERS: Visit Provider Physician Assistant
DX: Z34.92 Encounter for supervision of normal pregnancy, unspecified, second trimester (principal)
CPT/HCPCS: 36415; 82105

== ENCOUNTER 2025-03-05 09:25 | Outpatient (OUT) | payer BC, SELFPAY ==
[2025-03-05 10:15] LABS: Glucose Fasting 95 mg/dL (<95)
[2025-03-05 11:06] LABS: Glucose 1 Hour 220 mg/dL (<180)
[2025-03-05 12:17] LABS: Glucose 2 Hour 119 mg/dL (<155)
[2025-03-05 13:18] LABS: Glucose 3 Hour 48 mg/dL (<140)
== END 2025-03-05 09:26 | disposition home or self-care (01) ==
LOC: LAB 09:25
PROVIDERS: Visit Provider Obstetrics & Gynecology
DX: Z34.92 Encounter for supervision of normal pregnancy, unspecified, second trimester (principal); R73.09 Other abnormal glucose
CPT/HCPCS: 36415; 82105; 82951; 82952

== ENCOUNTER 2025-04-15 14:34 | Observation (INO) | payer BC, SELFPAY ==
--- OUTSIDE RECORDS SUMMARY | 2025-04-15 14:37 | XMS_ITS | Encounter Summary ---
Author Organization [facility] Address [address] [facility] [place] [address] Care Team Providers Care Skiver Machine Operator Name Role Phone Unavailable Primary Care Provider Unavailabl e Encounter Details Date Type Department Care Team (Late st Contact Info) Description 10/21/2024 Abstract [facility] [address] [facility] [place] [address] Sanaz Mcconnell LPN Social History Tobacco [...] Care Team (Late st Contact Info) Description 04/28/2025 1:00 PM EDT Routine [facility] [address] [facility] [place] [address] Krupa Hernandez PA [address] [facility] [address] [place], [place] [id number] documented as of this encounter Visit Diagnoses Not on filedocumented in this encounter
--- OUTSIDE RECORDS SUMMARY | 2025-04-15 14:38 | XMS_ITS | Encounter Summary ---
Author Organization [facility] Address [address] [facility] [place] [address] Care Team Providers Care Sheep Herder Name Role Phone Unavailable Primary Care Provider Unavailabl e Encounter Details Date Type Department Care Team (Late st Contact Info) Description 04/15/2025 Telephone [facility] [address] [place] [address] [place] [address] Hina Moura MA Social History Tobacco Use Types Packs/Day Years [...] PM EST documented as of this encounter Miscellaneous Notes * Telephone Encounter - Hina Moura MA - 04/15/2025 1:41 PM EDT OB 25w 0d called in stating she had light bleeding last night that was red in color. did inspect area but did not see any abnormalities. Pt has had some new onset of pains but nothing extreme. Pt states she hasn't seen any blood today but is paranoid that there may be an issue. Pt advisedto head to ER for evaluation, PVU. documented in this encounter Plan of Treatment Upcoming Encounters Date Type Department Care Team (Late st Contact Info) Description 04/28/2025 1:00 PM EDT Routine [facility] [address] [facility] [place] [phone] Krupa Hernandez PA [address] [place] [address] documented as of this encounter Visit Diagnoses Not on filedocumented in this encounter
--- OUTSIDE RECORDS SUMMARY | 2025-04-15 14:38 | XMS_ITS | Encounter Summary ---
Author Organization [facility] Address [address] [facility] [place] [address] Care Team Providers Care Venereal Disease Investigator Name Role Phone Unavailable Primary Care Provider Unavailabl e Encounter Details Date Type Department Care Team (Late st Contact Info) Description 02/09/2025 Abstract [facility] [address] [facility] [place] [address] Greg Anderson DO [address] [facility] [address] [place], [facility]11 Social History Tobacco Use Types [...] 1:00 PM EDT Routine [facility] [address] [facility] [place] [address] Krupa Hernandez PA [address] [facility] [address] [place], [facility]11 documented as of this encounter Visit Diagnoses Not on filedocumented in this encounter
--- OUTSIDE RECORDS SUMMARY | 2025-04-15 14:38 | XMS_ITS | Encounter Summary ---
Author Organization [facility] Address [address] [facility] [place] [address] Care Team Providers Care Manager Welding Name Role Phone Unavailable Primary Care Provider Unavailabl e Encounter Details Date Type Department Care Team (Late st Contact Info) Description 01/28/2025 Abstract [facility] [address] [facility] [place] [address] Greg Anderson DO [address] [facility] [address] [place], [facility]11 Social History Tobacco Use Types [...] 1:00 PM EDT Routine [facility]ESS[facility] [address] [facility] [place] [address] Krupa Hernandez PA [address] [facility] [address] [place], [facility]11 documented as of this encounter Visit Diagnoses Not on filedocumented in this encounter
--- OUTSIDE RECORDS SUMMARY | 2025-04-15 14:38 | XMS_ITS | Encounter Summary ---
Author Organization [facility] Address [address] [facility] [place] [address] Care Team Providers Care Merchandise Clerk Name Role Phone Unavailable Primary Care Provider Unavailabl e Encounter Details Date Type Department Care Team (Late st Contact Info) Description 03/08/2025 Abstract [facility] [address] [facility] [place] [address] Greg Anderson DO [address] [facility] [address] [place], [facility]11 Social History Tobacco Use Types Packs/Day [...] 1:00 PM EDT Routine HAL MESSINA [address] [facility] [place] [address] Krupa Hernandez PA [address] [facility] [address] [place], [facility]11 documented as of this encounter Visit Diagnoses Not on filedocumented in this encounter
--- OUTSIDE RECORDS SUMMARY | 2025-04-15 14:38 | XMS_ITS | Clinical Summary ---
Author Organization [employer] Address [id number] [address] [place] [address] Care Team Providers Care Post Anesthesia Room Nurse Name Role Phone Unavailable Primary Care Provider [...] ( 19 ORAL) Take by mouth. Active aspirin 81 mg Take 1 tablet (81 mg total) by mouth in the morning. Active Active Problems Problem Noted Date Diagnosed Date Choroid plexus cyst of fetus affecting care of mother, antepartum, fetus 1 03/11/2025 Multigravida of advanced maternal age in second trimester 03/11/2025 Estimated Date of Delivery Comme nts Yes 07/29/2025 Based on Ultraso und Encounters Date Type Department Care Team Description 04/07/2025 Telephone Maternal- Medicine at [facility] [address] [place] [phone] Lilly Rust CMA 03/18/2025 10:30 AM EDT Telemedicine Maternal- Medicine at [facility] [address] [place] [phone] Liv Aguirre LD Karl, Deborah, LD Insulin controlled gestational diabetes mellitus (GDM) in second trimester 03/18/2025 Travel 03/11/2025 10:30 AM EDT Office Visit Maternal- Medicine at [facility] [address] [place] [address] Venkat Landin MD Choroid plexus cyst of fetus affecting care of mother, antepartum, fetus 1 (Primary Dx); Multigravida of advanced maternal age in second trimester; Choroid plexus cyst of fetus in miranda 03/11/2025 9:08 AM EDT - 03/11/2025 11:59 PM EDT Hospital Encounter [facility] - [facility] [address] [place] [address] Encounter for anatomic survey Discharge Disposition: Home 03/11/2025 Orders Only Maternal- Medicine at [facility] [address] [facility] [place] [place] [address] Ana Vigil RN Choroid plexus cyst of fetus in miranad (Primary Dx); Multigravida of advanced maternal age in second trimester 03/11/2025 Abstract Maternal- Medicine at [facility] [address] [facility] [place] [place] [address] External, Scanning Provider 03/09/2025 Travel 01/25/2025 Abstract Maternal- Medicine at [facility] [address] [facility] [place] [place] [address] Venkat Landin MD from Last 3 Months Family History Medical History Relation Name Comments Hypertension Father Kidney failure Father T2DM Father T2DM Maternal Grandfather Breast cancer Maternal Grandmother Relation Name Status Comments Father Maternal Grandfather Maternal Grandmother Social History Tobacco Use Types Packs/Day Years Used Date Smoking Tobacco: Never Smokeless Tobacco: Never Alcohol Use Standard Drinks/Week Comments Not Currently 0 (1 standard drink = 0.6 oz pur e alcohol) Hunger Screening Answer Date Recorded Within the past 12 months we worried whether our food would run out before we got money to buy more. Never True 03/11/2025 Within the past 12 months th e food we bought just didn't last and we didn't have money to get more. Never True 03/11/2025 Estimated Date of Delivery Comme nts Yes 07/29/2025 Based on Ultraso und Sex and Gender Information Value Date Recorded Sex Assigned at Not on file Legal Sex Female 11:20 AM EDT Gender Identity Not on file Sexual Orientation Not on file Last Filed Vital Signs Vital Sign Reading Time Taken Comments Blood Pressure 121/83 03/11/2025 9:25 AM EDT Pulse 65 03/11/2025 9:25 AM EDT Temperature - - Respiratory Rate - - Oxygen Saturation - - Inhaled Oxygen Concentration - - Weight 122.2 kg (269 lb 6.4 oz) 03/11/2025 9:25 AM EDT Height 162.6 cm (5' 4 ) 03/11/2025 9:25 AM EDT Body Mass Index 46.24 03/11/2025 9:25 AM EDT Plan of Treatment Upcoming Encounters Date Type Department Care Team (Late st Contact Info) Description 04/22/2025 2:15 PM EDT Appointment Maternal Medicine [place] [address] [facility] [address] [place] [address] Health Maintenance Due Date Last Done Comments Depression Screening 1999 Adult BMI Follow Up Plan 2005 DTaP,Tdap and Td Vaccines (1 - Tdap) 2006 COVID-19 Vaccine (2 - season) 05/10/202410/2020 Influenza Vaccine 05/10/2025 06/15/2022, 05/23/2021 Adult BMI Screening 03/11/2026 03/11/2025 Tobacco Screening 03/11/2026 03/11/2025 Pap Smear 02/10/2028 02/09/2025 Medical Devices Not on file Procedures Procedure Name Priority Date/Time Associated Diagnosis Comments [facility] COMPREHENSIVE ANATOMIC SURVEY Routine 03/11/2025 11:01 AM EDT Encounter for anatomic survey UNLISTED LAB TEST Routine 03/11/2025 Multigravida of advanced maternal age in second trimester Choroid plexus cyst of fetus in miranda from Last 3 Months Results * 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 03/11/2025 9:40 AM EDT Narrative 03/11/2025 12:31 PM EDT NAME: RUBINA ESTRADA : 1985 SEX: F Accession Number: [id number] ORDERING PHYSICIAN: CANDICE ANDERSON REFERRING PHYSICIAN: CANDICE ANDERSON Coding ----- --------- Procedures 52916: Ultrasound, uterus, real time with image documentation, and maternal evaluation plus detailed anatomic examination, transabdominal approach;single or first gestation 58587: Transvaginal Ultrasound (OB) Indication ----- --------- AMA- Supervision of elderly, Chronic hypertension affecting , Obesity in , Screening for cervical length, Screening for Anatomic Survey History ----- --------- OB History 2. Para 0 [id number] Maternal Assessment ----- --------- Physical Exam Height 163 cm, 5 ft 4 in. Initial weight 122 kg, 269 lb. Initial BMI 46.17 kg/m Method ----- --------- Transabdominal and transvaginal ultrasound examination. View: Suboptimal view: limited by maternal body habitus. Suboptimal view: limited by position. Images of optimal diagnostic quality could not be obtained. ----- --------- Miranda . Number of fetuses: 1 Dating ----- --------- Previous Ultrasound on: 12/24/2024 Type of prior assessment: GA GA at prior assessment date 9 w + 0 d GA by previous U/S 20 w + 0 d MARCOS by previous Ultrasound: 07/29/2025 Ultrasound examination on: 03/11/2025 GA by U/S based upon: AC, BPD, Femur, HC GA by U/S 20 w + 0 d MARCOS by U/S: 07/29/2025 Assigned: based on ultrasound (GA), selected on 03/11/2025 Assigned GA 20 w + 0 d Assigned MARCOS: 07/29/2025 General Evaluation ----- --------- Cardiac activity Present. FHR 142 bpm. Presentation: cephalic Placenta: Placental site: anterior, away from cervical os Umbilical cord: Cord vessels: 3 vessel cord, normal insertion. Insertion site: normal insertion Amniotic fluid: Amount of AF: normal amount. MVP 4.3 cm Biometry ----- --------- Standard BPD 45.5 mm 19w 5d 39% Hadlock OFD 59.4 mm 20w 4d 71% Eliana HC 168.2 mm 19w 3d 19% Hadlock Cerebellum tr 20.4 mm 19w 4d 61% Hill Nuchal fold 3.3 mm AC 155.9 mm 20w 5d 69% Hadlock Femur 32.2 mm 20w 0d 43% Hadlock Humerus 29.4 mm 19w 4d 40% Eliana HC / AC 1.08 7% Hadlock EFW 345 g 63% Hadlock EFW (lb) 0 lb EFW (oz) 12 oz EFW by: Hadlock ([id number]) Extended Tibia 27.8 mm 20w 0d 60% Eliana Director Of Casino 6.6 mm CM 5.2 mm 57% Nicolaides Head / Face / Neck Cephalic index 0.77 26% Nicolaides Nasal bone: not examined Extremities / Bony Struc FL / BPD 0.71 58% Hadlock FL / HC 0.19 65% Hadlock FL / AC 0.21 20% Hadlock Other Structures FHR 142 bpm Anatomy ----- --------- The following structures appear abnormal: Head/Neck: Right choroid plexus: cyst. The following structures appear normal: Head / Neck Cranium. Lateral ventricles. Left choroid plexus. Midline falx. Cavum septi pellucidi. Cerebellum. Cisterna magna. Parenchyma. Vermis. Neck. Nuchal fold. Heart/Thorax: Situs. Cardiac position. Cardiac axis. Cardiac size. Cardiac rhythm. Abdomen: Abdom. wall. Cord insertion. Stomach. Bladder. Small bowel. Large bowel. Genitals. Extremities/Skeleton: Right upper arm. Right forearm. Right upper leg. Right lower leg. Left upper leg. Left lower leg. Skeleton The following structures could not be adequately visualized: Face: Profile. Nose. Heart / Thorax 4-chamber view. 9-eawxcr-taksnus view. Interventricular septum. Right lung. Left lung. Diaphragm. Abdomen Kidneys. Right renal artery. Left renal artery. Spine: Cervical spine. Thoracic spine. Lumbar spine. Sacral spine. Extremities / Right hand. Left upper arm. Left forearm. Left hand. Skeleton The following structures could not be examined: Face Lips. Nasal bone. Maxilla. Mandible. Orbits. Heart / Thorax RVOT view. LVOT view. 3-vessel view. Aortic arch view. Bicaval view. Ductal arch view. Superior vena cava. Inferior vena cava. Great vessels. Extremities / Right foot. Left foot. Skeleton Maternal Structures ----- --------- Uterus Visualized Cervix Visualized Approach - Transvaginal: Cervical length 5.30 cm Funneling absent Right Ovary Not visualized Left Ovary Not visualized Cul de Sac Visualized. No free fluid visualized Impression ----- --------- Single viable intrauterine consistent with 20w 0d with an MARCOS of 07/29/2025. Right choroid plexus cyst is identified. Per [facility] guidelines, isolated chorioid plexus cysts (CPCs) are a normal variant of no clinical importance with no indication for follow-up ultrasound imaging or evaluation in the setting of low risk cell free DNA screening. Transvaginal cervical length measures 5.3 cm. Amniotic fluid MVP measures 4.3 cm. Recommendations ----- --------- Please see [facility] documentation from today. The patient is scheduled in four to six week(s) to complete anatomic survey. Subsequent follow up or other follow up as clinically determined by primary OB provider unless otherwise specified by M. Results forwarded to ordering provider so they can follow up with the patient as necessary. Procedure Note Venkat Landin MD - 03/11/2025 NAME: RUBINA ESTRADA : 1985 SEX: F Accession Number: [id number] ORDERING PHYSICIAN: CANDICE ANDERSON REFERRING PHYSICIAN: CANDICE ANDERSON Coding ----- --------- Procedures [id number]: Ultrasound, uterus, real time with imagedocumentation, and maternal evaluation plus detailed anatomic examination, transabdominalapproach;single or first gestation 55739: Transvaginal Ultrasound (OB) Indication ----- --------- AMA- Supervision of elderly, Chronic hypertension affecting ,Obesity in , Screening for cervical length, Screening for Anatomic Survey History ----- --------- OB History 2. Para 0 [id number] Maternal Assessment ----- --------- Physical Exam Height 163 cm, 5 ft 4 in. Initial weight 122 kg, 269 lb.Initial BMI 46.17 kg/m Method ----- --------- Transabdominal and transvaginal ultrasound examination. View: Suboptimalview: limited by maternal body habitus. Suboptimal view: limited by position. Images of optimal diagnostic quality could notbe obtained. ----- --------- Miranda . Number of fetuses: 1 Dating ----- --------- Previous Ultrasound on: 12/24/2024 Type of prior assessment: GA GA at prior assessment date 9 w + 0 d GA by previous U/S 20 w + 0 d MARCOS by previous Ultrasound: 07/29/2025 Ultrasound examination on: 03/11/2025 GA by U/S based upon: AC, BPD, Femur, HC GA by U/S 20 w + 0 d MARCOS by U/S: 07/29/2025 Assigned: based on ultrasound (GA), selected on 03/11/2025 Assigned GA 20 w + 0 d Assigned MARCOS: 07/29/2025 General Evaluation ----- --------- Cardiac activity Present. FHR 142 bpm. Presentation: cephalic Placenta: Placental site: anterior, away from cervical os Umbilical cord: Cord vessels: 3 vessel cord, normal insertion. Insertionsite: normal insertion Amniotic fluid: Amount of AF: normal amount. MVP 4.3 cm Biometry ----- --------- Standard BPD 45.5 mm 19w 5d 39% Hadlock OFD 59.4 mm 20w 4d 71% Eliana HC 168.2 mm 19w 3d 19% Hadlock Cerebellum tr 20.4 mm 19w 4d 61% Hill Nuchal fold 3.3 mm AC 155.9 mm 20w 5d 69% Hadlock Femur 32.2 mm 20w 0d 43% Hadlock Humerus 29.4 mm 19w 4d 40% Eliana HC / AC 1.08 7% Hadlock EFW 345 g 63% Hadlock EFW (lb) 0 lb EFW (oz) 12 oz EFW by: Hadlock ([id number]-FL) Extended Tibia 27.8 mm 20w 0d 60% Eliana Director Of Casino 6.6 mm CM 5.2 mm 57% Nicolaides Head / Face / Neck Cephalic index 0.77 26% Nicolaides Nasal bone: not examined Extremities / Bony Struc FL / BPD 0.71 58% Hadlock FL / HC 0.19 65% Hadlock FL / AC 0.21 20% Hadlock Other Structures FHR 142 bpm Anatomy ----- --------- The following structures appear abnormal: Head/Neck: Right choroid plexus: cyst. The following structures appear normal: Head / Neck Cranium. Lateral ventricles. Left choroid plexus. Midlinefalx. Cavum septi pellucidi. Cerebellum. Cisterna magna. Parenchyma. Vermis. Neck. Nuchal fold. Heart/Thorax: Situs. Cardiac position. Cardiac axis. Cardiac size. Cardiacrhythm. Abdomen: Abdom. wall. Cord insertion. Stomach. Bladder. Small bowel. Largebowel. Genitals. Extremities/Skeleton: Right upper arm. Right forearm. Right upper leg.Right lower leg. Left upper leg. Left lower leg. Skeleton The following structures could not be adequately visualized: Face: Profile. Nose. Heart / Thorax 4-chamber view. 9-fsmkhh-ugqymet view. Interventricularseptum. Right lung. Left lung. Diaphragm. Abdomen Kidneys. Right renal artery. Left renal artery. Spine: Cervical spine. Thoracic spine. Lumbar spine. Sacral spine. Extremities / Right hand. Left upper arm. Left forearm. Left hand. Skeleton The following structures could not be examined: Face Lips. Nasal bone. Maxilla. Mandible. Orbits. Heart / Thorax RVOT view. LVOT view. 3-vessel view. Aortic arch view.Bicaval view. Ductal arch view. Superior vena cava. Inferior vena cava. Great vessels. Extremities / Right foot. Left foot. Skeleton Maternal Structures ----- --------- Uterus Visualized Cervix Visualized Approach - Transvaginal: Cervical length 5.30 cm Funneling absent Right Ovary Not visualized Left Ovary Not visualized Cul de Sac Visualized. No free fluid visualized Impression ----- --------- Single viable intrauterine consistent with 20w 0d with an MARCOS of07/29/2025. Right choroid plexus cyst is identified. Per [facility] guidelines, isolated chorioid plexus cysts (CPCs) are a normalvariant of no clinical importance with no indication for follow-up ultrasound imaging or evaluation in the setting of lowrisk cell free DNA screening. Transvaginal cervical length measures 5.3 cm. Amniotic fluid MVP measures 4.3 cm. Recommendations ----- --------- Please see [facility] documentation from today. The patient is scheduled in four to six week(s) to complete anatomicsurvey. Subsequent follow up or other follow up as clinically determined byprimary OB provider unless otherwise specified by M. Results forwarded to ordering provider so they can follow up with thepatient as necessary. Candicereba Anderson DO [facility] ORDERABLES Final Result * Unlisted Lab Test (03/11/2025) Blood Venous blood / Unknown 03/11/2025 Venkat Landin MD LAB BLOOD ORDERABLES Final Re sult MANUALLY TRANSCRIBED RESULTS from Last 3 Months Insurance [facility]
--- OUTSIDE RECORDS SUMMARY | 2025-04-15 14:38 | XMS_ITS | Encounter Summary ---
Author Organization [facility] Address [address] [facility] [place] [address] Care Team Providers Care Tailman Name Role Phone Unavailable Primary Care Provider Unavailabl e Encounter Details Date Type Department Care Team (Late st Contact Info) Description 03/15/2025 Abstract [facility] [address] [place] [address] Hina Moura MA Social History Tobacco [...] Info) Description 04/28/2025 1:00 PM EDT Routine [facility] [address] [facility] [facility] [place] [address] Krupa Hernandez PA [address] [place], [place] [id number] documented as of this encounter Visit Diagnoses Not on filedocumented in this encounter
--- OUTSIDE RECORDS SUMMARY | 2025-04-15 14:38 | XMS_ITS | Encounter Summary ---
Author Organization [facility] Address [address] [facility] [place] [address] Care Team Providers Care Target Protection Specialist Name Role Phone Unavailable Primary Care Provider Unavailabl e Encounter Details Date Type Department Care Team (Late st Contact Info) Description 02/23/2025 Orders Only [facility] MESSINA [address] [address] Tami Leyva LPN [address] [place] [id number] Social History Tobacco Use Types Packs/Day Years [...] 1:00 PM EDT Routine [facility] [address] [facility] [place] [address] Krupa Hernandez PA [address] [place], [facility] documented as of this encounter Procedures Procedure Name Priority Date/Time Associated Diagnosis Comments PAP SMEAR Routine 02/09/2025 12:00 AM EDT documented in this encounter Results * Pap Smear (02/09/2025 12:00 AM EDT) Swab Cervical swab / Unknown us [facility] ORDERABLES Final Re sult EXTERNAL LAB documented in this encounter Visit Diagnoses Not on filedocumented in this encounter
--- OUTSIDE RECORDS SUMMARY | 2025-04-15 14:38 | XMS_ITS | Encounter Summary ---
Author Organization [facility] Address [address] [facility] [place] [address] Care Team Providers Care Exchange Mechanic Name Role Phone Unavailable Primary Care Provider Unavailabl e Encounter Details Date Type Department Care Team (Late st Contact Info) Description 01/11/2025 Abstract [facility] MESSINA [address] [facility] [place] [address] Greg Anderson DO [address] [facility] [address] [place], [facility]11 [...] PM EDT Routine HAL MESSINA [address] [facility] [place] [address] Krupa Hernandez PA [address] [facility] [address] [place], [facility] documented as of this encounter Visit Diagnoses Not on filedocumented in this encounter
--- OUTSIDE RECORDS SUMMARY | 2025-04-15 14:38 | XMS_ITS | Encounter Summary ---
Author Organization [facility] Address [address] [facility] [place] [address] Care Team Providers Care Glazing Superintendent Name Role Phone Unavailable Primary Care Provider Unavailabl e Encounter Details Date Type Department Care Team (Late st Contact Info) Description 10/29/2024 Abstract [facility]ESSINA [address] [facility] [place] [address] Greg Anderson DO [address] [facility] [address] [place], [facility] Social History Tobacco Use Types Packs/Day [...] 1:00 PM EDT Routine [facility] MESSINA [address] [facility] [place] [address] Krupa Hernandez PA [address] [facility] [address] [place], [facility] documented as of this encounter Visit Diagnoses Not on filedocumented in this encounter
--- OUTSIDE RECORDS SUMMARY | 2025-04-15 14:38 | XMS_ITS | Encounter Summary ---
Author Organization [facility] Address [address] [facility] [place] [address] Care Team Providers Care Director Of Outreach Name Role Phone Unavailable Primary Care Provider Unavailabl e Encounter Details Date Type Department Care Team (Late st Contact Info) Description 01/08/2025 Abstract [facility] MESSINA [address] [facility] [place] [address] Greg Anderson DO [address] [facility] [address] [address] Te[place] Balbuena, [facility] Social History Tobacco Use Types [...] 1:00 PM EDT Routine HAL MESSINA [address] [facility] [place] [address] Krupa Hernandez PA [address] [facility] [address] [address] [place], [facility] documented as of this encounter Visit Diagnoses Not on filedocumented in this encounter
--- OUTSIDE RECORDS SUMMARY | 2025-04-15 14:38 | XMS_ITS | Encounter Summary ---
Author Organization [facility] Address [address] [facility] [place] [address] Care Team Providers Care Roll Scale Man Name Role Phone Unavailable Primary Care Provider Unavailabl e Encounter Details Date Type Department Care Team (Late st Contact Info) Description 11/18/2024 Abstract [facility] MESSINA [address] [facility] [address] Greg Anderson DO [address] Tej [place]bu[place], [facility] Social History Tobacco Use Types Packs/Day Years [...] 1:00 PM EDT Routine [facility] MESSINA [address] [facility] [place] [address] Krupa Hernandez PA [address] [place], [facility] documented as of this encounter Visit Diagnoses Not on filedocumented in this encounter
--- OUTSIDE RECORDS SUMMARY | 2025-04-15 14:38 | XMS_ITS | Clinical Summary ---
Author Organization [facility] Healthcare Address [address] [facility] [place] [address] Care Team Providers Care Concreter Name Role Phone Unavailable Primary Care Provider [...] DIRECTIONS 5 Active labetalol (Normodyne) 200 MG tabletIndication s:Elevated blood pressure reading Take 1 tablet (200 mg) by mouth in the morning and 1 tablet (200 mg) in the evening and 1 tablet (200 mg) before bedtime. 90 tablet 11 5 12/29/19 26 Active MV-Min-Fe Fum-FA-DHA ( 1 PO) Take by mouth Active aspirin 81 MG EC tablet Take 81 mg by mouth Daily Active Alcohol Swabs (Alcohol Prep Pad) 70 % padsIndications: Gestational diabetes mellitus (GDM), antepartum, gestational diabetes method of control unspecified (HHS-HCC),Elevat ed glucose tolerance test Apply 1 Pad topically Daily Use four times daily to check FSBS. 150 each 3 5 Active Blood Glucose Monitoring Suppl ([employer]S Blood Glucose Meter) deviceIndication s:Gestational diabetes mellitus (GDM), antepartum, gestational diabetes method of control unspecified (HHS-HCC),Elevat ed glucose tolerance test 1 kit in the morning and 1 kit at noon and 1 kit in the evening and 1 kit before bedtime. 1 each 5 Active Lancets Ultra Thin miscIndications: Gestational diabetes mellitus (GDM), antepartum, gestational diabetes method of control unspecified ([facility]),Elevat ed glucose tolerance test 1 each by In Vitro route Daily Use to check FSBS four times daily 150 each 3 5 04/07/20 25 Glucose Blood (Blood Glucose Test) stripIndications :Gestational diabetes mellitus (GDM), antepartum, gestational diabetes method of control unspecified ([facility]),Elevat ed glucose tolerance test 1 strip by In Vitro route Daily Use in the morning prior to breakfast, 1 hour after each meal for a total of 4times daily. 150 strip 3 5 04/07/20 25 Active Problems Estimated Date of Delivery Comme nts Yes 07/29/2025 Based on Ultraso und No known active problems Encounters Date Type Department Care Team Description 04/15/2025 [place] [address] Hina Moura [place] 03/30/2025 11:20 [place] [address] Candice Anderson DO 22 weeks gestation of ([facility]); Second trimester ([facility]); Gestational diabetes mellitus (GDM), antepartum, gestational diabetes method of control unspecified ([facility]) 03/30/2025 [place] [address] Candice Anderson DO 03/23/2025 Travel 03/15/2025 [place] [address] Hina Moura MA 03/09/2025 10:50 AM [place] [address] Candice Anderson, DO Second trimester ([facility]); 19 weeks gestation of ([facility]) 03/09/2025 Bamboo flowsheet [facility] [address] [facility] [place] [address] Candice Anderson, DO 03/08/2025 Abstract [facility] [place] [facility] [address] [facility] [place] [address] Candice Anderson, DO 03/08/2025 Telephone [facility]IMMERGYN [address] [address] Candice Anderson, DO 03/06/2025 Travel 03/05/2025 Clinisync Result Encounter NOMS External Department Unsolicited Candice Anderson, DO 02/23/2025 Orders Only [facility] [place] [facility] [address] [facility] [place] [address] Tami Leyva LPN 02/09/2025 2:40 PM EDT Routine [facility] [place] [address] Krupa Hernandez PA Well woman exam with routine gynecological exam; Second trimester ([facility]); 15 weeks gestation of ([facility]); Vaginal discharge; STD exposure 02/09/2025 Clinisync Result Encounter NOMS External Department Unsolicited Krupa Hernandez PA 02/09/2025 External Result Encounter NOMS External Department Unsolicited Krupa Hernandez PA 02/09/2025 Travel 02/09/2025 Abstract [facility]IMMER[facility]N [address] [place] [address] Candice Anderson, DO 02/08/2025 Telephone [facility] ZIMMERGYCeline Sullivan [address] [address] Aylin Sims MA 02/08/2025 [place] [address] Candice Anderson DO 01/28/2025 [place] [address] Candice Anderson DO 01/14/2025 9:20 [place] [address] Candice Anderson DO First trimester ([facility]); 12 weeks gestation of ([facility]); induced hypertension, antepartum ([facility]); Antepartum multigravida of advanced maternal age ([facility]); Hypertension affecting , antepartum ([facility]) 01/14/2025 Bamboo flowsheet [facility] [place] [address] Candice Anderson DO 01/13/2025 [place] [address] Candice Anderson DO from Last 3 Months Social History Tobacco [...] Sign Reading Time Taken Comments Blood Pressure 110/76 03/30/2025 11:31 AM EDT Pulse - - Temperature - - Respiratory Rate - - Oxygen Saturation - - Inhaled Oxygen Concentration - - Weight 122 kg (268 lb 12.8 oz) 03/30/2025 11:31 AM EDT Height - - Body Mass Index - - Plan of Treatment Upcoming Encounters Date Type Department Care Team (Late st Contact Info) Description 04/28/2025 1:00 PM EDT Routine [facility] [address] [facility] [place] [address] Krupa Hernandez PA [address] [place] [address] Health Maintenance Due Date Last Done Comments HPV/Cotest 2017 Influenza Vaccine (#1) 2025 06/15/2022, 2020 Cervical Cancer Screening 02/10/2028 Pap Smear 02/10/2028 02/09/2025 Procedures Procedure Name Priority Date/Time Associated Diagnosis Comments POCT URINALYSIS DIPSTICK Routine 03/30/2025 11:36 AM EDT 22 weeks gestation of ([facility]) Second trimester ([facility]) US OB 14+ WEEKS ANATOMY SCAN 03/11/2025 12:31 PM EDT AFP, SERUM, OPEN SPINA BIFIDA Routine 03/05/2025 9:31 AM EDT GLUCOSE TOLERANCE 3 HOUR Routine 03/05/2025 9:31 AM EDT POCT URINALYSIS DIPSTICK Routine 02/09/2025 4:09 PM EDT Second trimester ([facility]) 15 weeks gestation of ([facility]) RECURRENT VAGINITIS (HTRX) Routine 02/09/2025 3:57 PM EDT IGP,APTIMA HPV,AGE GDLN Routine 02/09/2025 2:55 PM EDT PAP SMEAR Routine 02/09/2025 12:00 AM EDT POCT URINALYSIS DIPSTICK Routine 01/14/2025 9:47 AM EDT First trimester ([facility]) from Last 3 Months Results * (ABNORMAL) POCT urinalysis dipstick manually resulted (03/30/2025 11:36 AM EDT) Only the most recent of3 resultswithin the time period is included. Color, UA Aurora Clarity, UA Clear Glucose, UA Negative Negative - 2000(110) ++++ mg/dL Bilirubin, UA Negative Negative - 4(70) +++ mg/dL Ketones, UA Negative Negative - 160(16) ++++ mg/dL Spec Grav, UA 1.020 1 - 1.03 Blood, UA Negative Negative - 50 Javi/mcL pH, UA 7.5 5 - 9 Protein, UA Trace Negative - 2000(20) ++++ mg/dL Urobilinogen, UA 1.0 0.2 - 12 mg/dL Leukocytes, UA Negative Negative - 500+++ Tomas/mcL Nitrite, UA Negative Negative - Positive Urine 03/30/2025 11:3 6 AM EDT us Candice Anderson DO POINT OF CARE TEST ENTER/EDIT OR DERABLES Final Result * US OB 14+ weeks anatomy scan (03/11/2025 12:31 PM EDT) Anatomical Region Laterality Modality Body Ultrasound 03/11/2025 12:3 1 PM EDT Narrative 03/11/2025 12:31 PM EDT THIS EXAM WAS PERFORMED AT [facility] NAME: RUBINA ESTRADA : 1985 SEX: F Accession Number: [id number] ORDERING PHYSICIAN: CANDICE ANDERSON REFERRING PHYSICIAN: CANDICE ANDERSON Coding ----- --------- Procedures 89270: Ultrasound, uterus, real time with image documentation, and maternal evaluation plus detailed anatomic examination, transabdominal approach;single or first gestation [id number]: Transvaginal Ultrasound (OB) Indication ----- --------- AMA- Supervision of elderly, Chronic hypertension affecting , Obesity in , Screening for cervical length, Screening for Anatomic Survey History ----- --------- OB History 2. Para 0 [id number] Maternal Assessment ----- --------- Physical Exam Height 163 cm, 5 ft 4 in. Initial weight 122 kg, 269 lb. Initial BMI 46.17 kg/m??? Method ----- --------- Transabdominal and transvaginal ultrasound examination. View: Suboptimal view: limited by maternal body habitus. Suboptimal view: limited by position. Images of optimal diagnostic quality could not be obtained. ----- --------- Ortiz . Number of fetuses: 1 Dating ----- [...] EFW (oz) 12 oz EFW by: Hadlock ([id number]) Extended Tibia 27.8 mm 20w 0d 60% Eliana Instructional Consultant 6.6 mm CM 5.2 mm 57% Nicolaides [...] Profile. Nose. Heart / Thorax 4-chamber view. 1-cxuxme-eeangip view. Interventricular septum. Right lung. Left lung. [...] Right choroid plexus cyst is identified. Per [facility] guidelines, isolated chorioid plexus cysts (CPCs) are a normal variant of no clinical importance with no indication for follow-up ultrasound imaging or evaluation in the setting of low risk cell free DNA screening. Transvaginal cervical length measures 5.3 cm. Amniotic fluid MVP measures 4.3 cm. Recommendations ----- --------- Please see [facility] documentation from today. The patient is scheduled in four to six week(s) to complete anatomic survey. Subsequent follow up or other follow up as clinically determined by primary OB provider unless otherwise specified by M. Results forwarded to ordering provider so they can follow up with the patient as necessary. Procedure Note Radiology, Radiologist, MD - 03/11/2025 THIS EXAM WAS PERFORMED AT [facility] NAME: RUBINA ESTRADA : 1985 SEX: F Accession Number: [id number] ORDERING PHYSICIAN: CANDICE ANDERSON REFERRING PHYSICIAN: CANDICE ANDERSON Coding ----- --------- Procedures [id number]: Ultrasound, uterus, real time with imagedocumentation, and maternal evaluation plus detailed anatomic examination, transabdominalapproach;single or first gestation 48952: Transvaginal Ultrasound (OB) Indication ----- --------- AMA- Supervision of elderly, Chronic hypertension affecting ,Obesity in , Screening for cervical length, Screening for Anatomic Survey History ----- --------- OB History 2. Para 0 [id number] Maternal Assessment ----- --------- Physical Exam Height 163 cm, 5 ft 4 in. Initial weight 122 kg, 269 lb.Initial BMI 46.17 kg/m??? Method ----- --------- Transabdominal and transvaginal ultrasound examination. View: Suboptimalview: limited by maternal body habitus. Suboptimal view: limited by position. Images of optimal diagnostic quality could notbe obtained. ----- --------- Ortiz . Number of fetuses: 1 Dating ----- [...] EFW (oz) 12 oz EFW by: Hadlock ([id number]) Extended Tibia 27.8 mm 20w 0d 60% Eliana Instructional Consultant 6.6 mm CM 5.2 mm 57% Nicolaides [...] Profile. Nose. Heart / Thorax 4-chamber view. 6-prfdry-kjpzsaj view. Interventricularseptum. Right lung. Left lung. Diaphragm. [...] Right choroid plexus cyst is identified. Per [facility] guidelines, isolated chorioid plexus cysts (CPCs) are a normalvariant of no clinical importance with no indication for follow-up ultrasound imaging or evaluation in the setting of lowrisk cell free DNA screening. Transvaginal cervical length measures 5.3 cm. Amniotic fluid MVP measures 4.3 cm. Recommendations ----- --------- Please see [facility] documentation from today. The patient is scheduled in four to six week(s) to complete anatomicsurvey. Subsequent follow up or other follow up as clinically determined byprimary OB provider unless otherwise specified by [facility]. Results forwarded to ordering provider so they can follow up with thepatient as necessary. us Candice Anderson DO IMG OB US PROCEDURES Final Resul t * AFP, SERUM, OPEN SPINA BIFIDA (03/05/2025 9:31 AM EDT) RESULTS Report . [facility] TEST RESULTS: *Screen Negative* . [facility] GEST. AGE ON COLLECTION DATE 19.1 . weeks [facility] GESTAT. AGE BASED ON Ultrasound . [facility] Comment: 15.7 on 02/09/2025 Recalculations are not recommended when gestational dating by LMP and ultrasound are within 10 days. [age]OS [age] [facility] RACE Other . [facility] WEIGHT 271 . lbs [facility] INSULIN DEP DIABETES No . [facility] MULTIPLE GESTATION No . [facility] AFP VALUE 35.5 . ng/mL [facility] AFP MOM 1.00 . [facility] [place] [address] [place] [address] . [facility] INTERPRETATION Comment . [facility] Comment: Interpretation: Screen Negative This result is screen negative for OSB. The AFP MoM calculated is based on the gestational age provided. MS-AFP can identify up to 80% of open neural tube defects. Closed neural tube defects and some open defects may not be detected by this test. This test does not screen for Down Syndrome or Trisomy 18. If screening for Down Syndrome or Trisomy 18 is desired, contact [facility] to discuss available options. The [employer] recommends amniocentesis be offered to women age 35 and older. COMMENT: Comment . [facility] Comment: Radha Castellanos, Ph.D., [facility] Director References: Available Upon Request. Multiples Of Median Cutoffs For AFP Elevations Ortiz 2.5 Black 2.8 IDD 2.0 Twins 4.5 Abbreviation Definitions IDD - Insulin Dep Diabetes OSBR - Open Spina Bifida Risk For further inquiries contact [facility] at [phone]. This test was developed and its performance characteristics determined by [facility]. It has not been cleared or approved by the Food and Drug Administration. Performed at: [address] [id number] Proofing Machine Operator: Estelita Mckeon [facility], Phone: [phone] 03/05/2025 9:31 AM EDT 03/05/2025 9:33 AM EDT Narrative JOSE - 03/07/2025 12:08 AM EDT N N ULTRASOUND [id number] 5 15 N 1 Y 271 N N N N N White/ Krupa PRINCE LAB BLOOD ORDERABLES Final Resul t [facility] * (ABNORMAL) GLUCOSE TOLERANCE 3 HOUR (03/05/2025 9:31 AM EDT) Pathologist [facility] GLUCOSE TOLERANCE 3 HOUR (LL) mg/dL [facility] Comment: GLU FAST 95H (<95) Col: 03/05/25 0931 GLU 1HR 220H (<180) Col: 03/05/25 1036 GLU 2HR 119 (<155) Col: 03/05/25 1135 GLU 3HR 48*L (<140) Col: 03/05/[address] ANDERSON 03/05/2025 9:31 AM EDT 03/05/2025 9:33 AM EDT Narrative JOSE - 03/05/2025 1:18 PM EDT us Candice Anderson DO LAB BLOOD ORDERABLES Final Resul t JOSE [facility] * RECURRENT VAGINITIS (HTRX) (02/09/2025 3:57 PM EDT) [facility] ATOPOBIUM VAGINAE 0.000 19.961 - 24.689 ppm 02/10/2025 7:09 AM EDT [facility] ATOPOBIUM VAGINAE Not Detected 19.961 - 24.689 ppm 02/10/2025 7:09 AM EDT [facility] BVAB 2,3 (BACTERIAL VAGINOSIS ASSOCIATED BACTERIA 2, 3); MOBILUNCUS SPP 0.000 19.961 - 24.689 ppm 02/10/2025 7:09 AM EDT [facility] BVAB 2,3 (BACTERIAL VAGINOSIS ASSOCIATED BACTERIA 2, 3); MOBILUNCUS SPP Not Detected 19.961 - 24.689 ppm 02/10/2025 7:09 AM EDT [facility] RINA ALBICANS, PARAPSILOSIS, TROPICALIS 0.000 19.961 - 30.770 ppm 02/10/2025 7:09 AM EDT [facility] RINA ALBICANS, PARAPSILOSIS, TROPICALIS Not Detected 19.961 - 30.770 ppm 02/10/2025 7:09 AM EDT [facility] RINA GLABRATA 0.000 23.000 - 32.138 ppm 02/10/2025 7:09 AM EDT [facility] RINA GLABRATA Not Detected 23.000 - 32.138 ppm 02/10/2025 7:09 AM EDT [facility] RINA KRUSEI 0.000 23.000 - 32.271 ppm 02/10/2025 7:09 AM EDT [facility] RINA KRUSEI Not Detected 23.000 - 32.271 ppm 02/10/2025 7:09 AM EDT [facility] CHLAMYDIA TRACHOMATIS 0.000 23.000 - 31.467 ppm 02/10/2025 7:09 AM EDT [facility] CHLAMYDIA TRACHOMATIS Not Detected 23.000 - 31.467 ppm 02/10/2025 7:09 AM EDT [facility] GARDNERELLA VAGINALIS 0.000 19.961 - 24.689 ppm 02/10/2025 7:09 AM EDT [facility] GARDNERELLA VAGINALIS Not Detected 19.961 - 24.689 ppm 02/10/2025 7:09 AM EDT [facility] MEGASPHAERA (TYPES 1, 2) 0.000 19.961 - 24.689 ppm 02/10/2025 7:09 AM EDT [facility] MEGASPHAERA (TYPES 1, 2) Not Detected 19.961 - 24.689 ppm 02/10/2025 7:09 AM EDT [facility] NEISSERIA GONORRHOEAE 0.000 23.000 - 32.117 ppm 02/10/2025 7:09 AM EDT [facility] NEISSERIA GONORRHOEAE Not Detected 23.000 - 32.117 ppm 02/10/2025 7:09 AM EDT [facility] TRICHOMONAS VAGINALIS 0.000 23.000 - 32.119 ppm 02/10/2025 7:09 AM EDT [facility] TRICHOMONAS VAGINALIS Not Detected 23.000 - 32.119 ppm 02/10/2025 7:09 AM EDT [facility] MYCOPLASMA GENITALIUM 0.000 19.961 - 24.689 ppm 02/10/2025 7:09 AM EDT [facility] MYCOPLASMA GENITALIUM Not Detected 19.961 - 24.689 ppm 02/10/2025 7:09 AM EDT [facility] Tissue 02/09/2025 3:57 PM EDT 02/10/2025 2:51 AM EDT Krupa PRINCE LAB BLOOD ORDERABLES Final Resul t [facility] [place] [place] [address] * IGP,APTIMA HPV,AGE GDLN (02/09/2025 2:55 PM EDT) AGE GDLN ACOG TESTING Note . [facility] Comment: TESTS RESULT FLAG UNITS REF RANGE LAB Clinician Provided Cytology Information Source.............Endocervix No. of containers..01 ThinPrep Vial Age Algo ACOG Sharmila... 30-65 01 FLAG LEGEND: L-Low Normal,H-High Normal,LL-Alert Low,HH-Alert High <-Panic Low,>-Panic High,A-Abnormal,AA-Critical Abnormal Performed at: 01 =[facility] [place] [address] Keiry Hawthorne MD, IGP, APTIMA HPV, RFX 16/18,45 Note . [facility] Comment: TESTS RESULT FLAG UNITS REF RANGE LAB DIAGNOSIS: 02 NEGATIVE FOR INTRAEPITHELIAL LESION OR MALIGNANCY. FUNGAL ORGANISMS MORPHOLOGICALLY CONSISTENT WITH RINA SPECIES ARE PRESENT. Specimen adequacy: 02 Satisfactory for evaluation. No endocervical component is identified. Performed by: 02 Florinda Pollock, M1 Armor Crewman ([facility]) . 02 Note: Note 02 The Pap [...] High <-Panic Low,>-Panic High,A-Abnormal,AA-Critical Abnormal Performed at: [address] [place] [address], [place] [address] Keiry Hawthorne MD, HPV APTIMA Negative Negative [facility] Comment: This nucleic acid amplification test detects fourteen high- risk HPV types (16,18,31,33,35,39,45,51,52,56,58,59,66,68) without differentiation. Performed at: =[address] [id number] Proofing Machine Operator: Keiry Hawthorne MD, Phone: [phone] Performed at: [address] [id number] Proofing Machine Operator: Keiry Hawthorne MD, Phone: [phone] 02/09/2025 2:55 PM EDT 02/09/2025 8:38 PM EDT Narrative [facility] - 02/12/2025 9:13 AM EDT SPATULA-ALONE ENDOCERVIX us Krupa PRINCE LAB BLOOD ORDERABLES Final Resul t [facility] * Pap Smear (02/09/2025 12:00 AM EDT) Swab Cervical swab / Unknown us Krupa PRINCE LAB CYTOLOGY ORDERABLES Final Re sult EXTERNAL LAB from Last [address] [place] [address]
--- OUTSIDE RECORDS SUMMARY | 2025-04-15 14:38 | XMS_ITS | Encounter Summary ---
Author Organization [facility] Address [address] [facility] [place] [address] Care Team Providers Care Well Site Drilling Engineer Name Role Phone Unavailable Primary Care Provider Unavailabl e Encounter Details Date Type Department Care Team (Late st Contact Info) Description 02/08/2025 Abstract [facility]ESSINA [address] [place] [address] Greg Anderson DO [address] [facility] [address] [place] Bal[place]ena, [facility]11 Social History Tobacco Use Types Packs/Day [...] 1:00 PM EDT Routine HAL MESSINA [address] [place] [address] Krupa Hernandez PA [address] [facility] [facility] [address] [place], [facility]11 documented as of this encounter Visit Diagnoses Not on filedocumented in this encounter
--- OUTSIDE RECORDS SUMMARY | 2025-04-15 14:38 | XMS_ITS | Encounter Summary ---
Author Organization [facility] Address [address] [facility] [place] [address] Care Team Providers Care Mail Weigher Name Role Phone Unavailable Primary Care Provider Unavailabl e Encounter Details Date Type Department Care Team (Late st Contact Info) Description 01/08/2025 Abstract [facility] MESSINA [address] [place] [address] Greg Anderson DO [address] [facility] [address] Tej Balbuena, [facility]11 Social History Tobacco Use Types [...] HAL MESSINA [address] [place] [address] Krupa Hernandez PA [address] [facility] [address] [place], [facility] documented as of this encounter Visit Diagnoses Not on filedocumented in this encounter
--- OUTSIDE RECORDS SUMMARY | 2025-04-15 14:38 | XMS_ITS | Encounter Summary ---
Author Organization [facility] Address [address] [place] [address] Care Team Providers Care Compression Molding Machine Setter Name Role Phone Unavailable Primary Care Provider Unavailabl e Encounter Details Date Type Department Care Team (Late st Contact Info) Description 11/17/2024 Abstract [facility]ree MESSINA [address] [facility] [place] [address] Greg Anderson DO [address] Tej Balbuena, [facility]11 Social History Tobacco Use Types Packs/Day [...] 1:00 PM EDT Routine [facility] MESSINA [address] [facility] [facility] [place] [address] Krupa Hernandez PA [address] [place], [facility]11 documented as of this encounter Visit Diagnoses Not on filedocumented in this encounter
--- OUTSIDE RECORDS SUMMARY | 2025-04-15 14:38 | XMS_ITS | Clinical Summary ---
Author Organization [facility] Address [address] [place] [address], [address] [place] [address] Care Team Providers Care Weapons Engineer Name Role Phone Unavailable Primary Care [...]
--- OUTSIDE RECORDS SUMMARY | 2025-04-15 14:38 | XMS_ITS | Encounter Summary ---
Author Organization [facility] [email or web address] [facility] Address [id number] [address] [place] [address] Care Team Providers Care Tugboat Captain Name Role Phone Unavailable Primary Care Provider Unavailabl e Encounter Details Date Type Department Care Team (Late st Contact Info) Description 04/07/2025 Telephone Maternal- Medicine at [facility] [address] [place] [address] Lilly Rust CMA Social History Tobacco Use Types Packs/Day Years [...] on file Sexual Orientation Not on file documented as of this encounter Miscellaneous Notes * Telephone Encounter - Lilly Rust CMA - 04/07/2025 3:25 PM EDT LAND LEVELER CALLED PATIENT. NO ANSWER. LEFT VM ASKING PATIENT TO EMAIL US HER BLOOD GLUCOSE LOGS. documented in this encounter Plan of Treatment Upcoming Encounters Date Type Department Care Team (Late st Contact Info) Description 04/22/2025 2:15 PM EDT Appointment Maternal Medicine [place] [address] [place] [id number] documented as of this encounter Visit Diagnoses Not on filedocumented in this encounter
[2025-04-15 14:52] VITALS: BP 117/67; PULSE 88
[2025-04-15 15:12] LABS: Glucose Urine UA NEGATIVE (NEGATIVE)
--- NOTE | 2025-04-15 15:26 | US_ITS ---
[address] [address] Patient Name: NATALIE CESPEDES MRN: [id number] date: 1985 Sex: F Assigned Patient Location: [facility] Current Patient Location: Accession/Order Number: [id number] Exam Date: 04/15/2025 16:26 Report Date: 04/15/2025 16:27 At the request of: CANDICE OCHOA DO Procedure: US OB placenta Cervical length/placental ultrasound. Reason for exam: Vaginal bleeding for one day. COMPARISON: None. TECHNIQUE: Transabdominal imaging of the gravid uterus was obtained. FINDINGS: Cervical length is normal at 5.2 cm without evidence of funneling. Placenta is posterior location without focal abnormality. Single intrauterine is seen with a heart rate of 148 bpm. US/US OB cervical length IMPRESSION: Normal cervical length without funneling. Unremarkable placental ultrasound. Impression dictated by: Jacob Almanza Jr., D.O. 04/15/2025 4:27 PM [facility]ictation [facility] Electron[facility] authentic[facility] by: [id number] Y Date: 04/15/2025 16:27
--- NOTE | 2025-04-15 15:27 | US_ITS ---
[place] [id number] Patient Name: NATALIE CESPEDES MRN: [id number] date: 1985 Sex: F Assigned Patient Location: [facility] Current Patient Location: Accession/Order Number: [id number] Exam Date: 04/15/2025 16:26 Report Date: 04/15/2025 16:27 At the request of: CANDICE OCHOA DO Procedure: US OB placenta Cervical length/placental ultrasound. Reason for exam: Vaginal bleeding for one day. COMPARISON: None. TECHNIQUE: Transabdominal imaging of the gravid uterus was obtained. FINDINGS: Cervical length is normal at 5.2 cm without evidence of funneling. Placenta is posterior location without focal abnormality. Single intrauterine is seen with a heart rate of 148 bpm. US/US OB placenta IMPRESSION: Normal cervical length without funneling. Unremarkable placental ultrasound. Impression dictated by: Jacob Almanza Jr., D.O. 04/15/2025 4:27 PM Dictation [facility] Electron[facility] authenticated by: [id number] Y Date: 04/15/2025 16:27
[2025-04-15 15:32] LABS: Cast Seen? NONE SEEN #/LPF (NONE SEEN); Crystals Seen? None Seen #/HPF (None Seen); Urine Culture Indicated YES-LC
== END 2025-04-15 15:57 | disposition home or self-care (01) ==
PROVIDERS: Admitting Provider Obstetrics & Gynecology; PCP Family Medicine; Visit Provider Obstetrics & Gynecology
DX: O46.90 Antepartum hemorrhage, unspecified, unspecified trimester (principal); Z3A.00 Weeks of gestation of pregnancy not specified; R82.79 Other abnormal findings on microbiological examination of urine
CPT/HCPCS: 59025; 76815; 76817; 81001; 87077; 87086; 87186; G0378; G0379

== ENCOUNTER 2025-06-14 10:54 | Outpatient (OUT) | payer BC, SELFPAY ==
--- OUTSIDE RECORDS SUMMARY | 2025-06-14 10:56 | XMS_ITS | Encounter Summary ---
Author Organization [facility] Address [address] [place] [address] Care Team Providers Care Evs Attendant Name Role Phone Unavailable Primary Care Provider Unavailabl e Encounter Details Date Type Department Care Team (Late st Contact Info) Description 10/21/2024 Abstract [facility] [address] [address] Sanaz Mcconnell LPN Social History Tobacco [...] Care Team (Late st Contact Info) Description 06/14/2025 11:50 AM EDT Routine HAL MESSINA [address] [place] [address] Suzanne Valdivia NP [address] [place] [address] documented as of this encounter Visit Diagnoses Not on filedocumented in this encounter
--- OUTSIDE RECORDS SUMMARY | 2025-06-14 10:56 | XMS_ITS | Clinical Summary ---
Author Organization [facility] Healthcare Address [address] [place] [address] Care Team Providers Care Core Sticker Name Role Phone Unavailable Primary Care Provider [...] kit before bedtime. 1 each 5 Active cephalexin (Keflex) 500 MG capsule Take 500 mg by mouth in the morning and 500 mg at noon and 500 mg in the evening and 500 mg before bedtime. 5 Active HYDROmorphone (Dilaudid) 2 MG tablet Take 2 mg by mouth every 6 (six) hours if needed 5 Active phenazopyridine (Pyridium) 100 MG tabletIndication s:Urinary tract infection without hematuria, site unspecified Take 1 tablet (100 mg) by mouth 3 (three) times a day as needed for bladder spasms for up to 9 doses 9 tablet 5 Active HYDROcodone-acet aminophen ([place]) 5-325 MG tabletIndication s:Urinary tract infection without hematuria, site unspecified Take 1 tablet by mouth every 6 (six) hours if needed for moderate pain or severe pain for up to 5 days 10 tablet 5 05/18/20 25 Active Problems Estimated Date of Delivery Comme nts Yes 07/29/2025 Based on Ultraso und No known active problems Encounters Date Type Department Care Team Description 05/27/2025 8:50 [place] [address] Krupa Hernandez PA Size of fetus inconsistent with dates, antepartum ([facility]) (Primary Dx); Third trimester ([facility]); 31 weeks gestation of ([facility]) 05/27/20[place] [address] Krupa Hernandez PA 05/20/2025 [place] [address] Candice Anderson DO 05/13/2025 8:30 [place] [address] Candice Anderson, DO 29 weeks gestation of ([facility]); Third trimester ([facility]); Gestational diabetes mellitus (GDM), antepartum, gestational diabetes method of control unspecified ([facility]); Urinary tract infection without hematuria, site unspecified 05/13/2025 Bamboo flowsheet [facility] [address] [place] [address] Candice Anderson, DO 05/11/2025 External Result Encounter [facility] External Department Unsolicited Shaun Rebollar MD 05/10/2025 External Result Encounter [facility] External Department Unsolicited Shaun Rebollar MD 05/10/2025 External Result Encounter [facility] External Department Unsolicited Shaun Rebollar MD 05/10/2025 External Result Encounter [facility] External Department Unsolicited Shaun Rebollar MD 05/10/2025 External Result Encounter [facility] External Department Unsolicited Shaun Rebollar MD 05/10/2025 External Result Encounter [facility] External Department Unsolicited Shaun Rebollar MD 05/04/2025 Abstract [facility] [address] [place] [place] [address] Candice Anderson, DO 05/04/2025 Telephone [facility] [address] [place] [place] [address] Candice Anderson, DO 04/28/2025 1:00 PM EDT Routine [facility] [address] [place] [address] Krupa Hernandez PA 26 weeks gestation of ([facility]); Second trimester ([facility]); Urinary tract infection with hematuria, site unspecified; Yeast infection 04/28/2025 Bamboo flowsheet [facility] [address] [place] [place] [address] Krupa Hernandez PA 04/23/2025 Abstract [facility] [address] [place] [place] [address] Candice Anderson, DO 04/21/2025 Travel 04/15/2025 Clinisync Result Encounter [facility] External Department Unsolicited Candice Anderson, DO 04/15/2025 Clinisync Result Encounter [facility] External Department Unsolicited Candice Anderson, DO 04/15/2025 Clinisync Result Encounter [facility] External Department Unsolicited Candice Anderson, DO 04/15/2025 [place] [address] Hina Moura MA 03/30/2025 11:20 AM [place] [address] Candice Anderson, DO 22 weeks gestation of ([facility]); Second trimester ([facility]); Gestational diabetes mellitus (GDM), antepartum, gestational diabetes method of control unspecified ([facility]) 03/30/2025 [place] [address] Candice Anderson, DO 03/23/2025 Travel 03/15/2025 Abstract [facility] [address] Hina Moura MA from Last 3 Months Social History Tobacco [...] Sign Reading Time Taken Comments Blood Pressure 148/100 05/27/2025 8:52 AM EDT Pulse - - Temperature - - Respiratory Rate - - Oxygen Saturation - - Inhaled Oxygen Concentration - - Weight 121 kg (266 lb 4 oz) 05/27/2025 8:52 AM E DT Height - - Body Mass Index - - Plan of Treatment Upcoming Encounters Date Type Department Care Team (Late st Contact Info) Description 06/14/2025 11:50 AM EDT Routine [facility] [address] [place] [address] Suzanne Valdivia, MARINA [address] [place] [address] Health Maintenance Due Date Last Done Comments HPV/Cotest 2017 Influenza Vaccine (#1) 2025 06/15/2022, 2020 Cervical Cancer Screening 02/10/2028 Pap Smear 02/10/2028 02/09/2025 Procedures Procedure Name Priority Date/Time Associated Diagnosis Comments POCT URINALYSIS DIPSTICK Routine 05/27/2025 8:58 AM EDT Third trimester ([facility]) POCT URINALYSIS DIPSTICK Routine 05/13/2025 8:42 AM EDT 29 weeks gestation of ([facility]) Third trimester ([facility]) US RENAL COMPLETE 05/11/2025 12: 52 PM EDT LIPASE STAT 05/10/2025 11:10 PM EDT AMYLASE STAT 05/10/2025 11:10 PM EDT COMPREHENSIVE METABOLIC PANEL STAT 05/10/2025 11:10 PM EDT CBC WITH AUTO DIFFERENTIAL STAT 05/10/2025 11:10 PM EDT FIBRONECTIN STAT 05/10/2025 11: 05 PM EDT AEROBIC DAVE CHARGE (NMIC56) STAT 05/10/2025 10:30 PM EDT URINALYSIS REFLEX STAT 05/10/2025 10: 30 PM EDT CULTURE, URINE, ROUTINE STAT 05/10/2025 10:30 PM EDT URINARY TRACT INFECTION (HTRX) Routine 04/28/2025 1:20 PM EDT POCT URINALYSIS DIPSTICK Routine 04/28/2025 1:15 PM EDT 26 weeks gestation of ([facility]) Second trimester ([facility]) US OB PLACENTA 04/15/2025 4:27 PM EDT US OB CERVICAL LENGTH 04/15/2025 4:27 PM EDT [facility] URINE MICROSCOPIC ONLY Routine 04/15/2025 2:55 PM EDT [facility] UA (CLEAN/CATCH) BARMAID/MICRO IF IND. Routine 04/15/2025 2:55 PM EDT POCT URINALYSIS DIPSTICK Routine 03/30/2025 11:36 AM EDT 22 weeks gestation of ([facility]) Second trimester ([facility]) PAP SMEAR Routine 02/09/2025 12:00 AM EDT from Last 3 Months or Most Recently Relevant to Health Maintenance Results * (ABNORMAL) POCT urinalysis dipstick manually resulted (05/27/2025 8:58 AM EDT) Only the most recent of4 resultswithin the time period is included. Color, UA Yellow Clarity, UA Clear Glucose, UA Negative Negative - 2000(110) ++++ mg/dL Bilirubin, UA Negative Negative - 4(70) +++ mg/dL Ketones, UA Negative Negative - 160(16) ++++ mg/dL Spec Grav, UA 1.015 1 - 1.03 Blood, UA Negative Negative - 50 Javi/mcL pH, UA 7.0 5 - 9 Protein, UA Negative Negative - 2000(20) ++++ mg/dL Urobilinogen, UA 0.2 0.2 - 12 mg/dL Leukocytes, UA Negative Negative - 500+++ Tomas/mcL Nitrite, UA Negative Negative - Positive Urine 05/27/2025 8:58 AM EDT us Candice Justin DO POINT OF CARE TEST ENTER/EDIT OR DERABLES Final Result * US renal complete (05/11/2025 12:52 PM EDT) Anatomical Region Laterality Modality Kidney Ultrasound 05/11/2025 12:5 2 PM EDT Impressions 05/11/2025 12:55 PM EDT There is mild hydronephrosis. Bilateral ureteral jets are noted. Impression dictated by: Deshaun Alanis M.D. 05/11/2025 12:52 PM Dictation Location: [place] [address] Tech: Chantell Lou Transcribed By: LAURA 05/11/25 1252 Dictated By: Deshaun Alanis II, MD 05/11/25 1252 Signed By: <Electronically signed by Deshaun Alanis II, MD in OV> 05/11/25 1252 Narrative 05/11/2025 12:55 PM EDT [facility] [place] [address] Ultrasound Report Signed Patient: Natalie Cespedes MR#: [id number] : 1985 Acct:[id number] Age/Sex: 40 / F ADM Date: 05/10/25 Loc: Room: [address] [place] [address] Type: REG CLI Attending Dr: Shaun Rebollar MD Ordering Provider: SHAUN REBOLLAR MD Date of Service: 05/11/25 US/US renal BI: Pyelonephritis Copies to: SHAUN REBOLLAR MD US renal BI 05/11/2025 12:05 PM SIGNS AND SYMPTOMS: Pyelonephritis Renal with jets COMPARISON: None. FINDINGS: Right kidney measures 11.19 cm x 6.36 cm x 5.48 cm . There is mild right-sided hydronephrosis. No evidence of mass. Left kidney measures 10.67 cm x 4.93 cm x 5.04 cm . No mass or hydronephrosis. The urinary bladder is morphologically normal. Bilateral ureteral jets are visualized. No free fluid is seen in the pelvis. Before voiding, the bladder measures 2.82 cm x 5.89 cm x 7.81 cm , which corresponds to an estimated volume of 67.92 mL . US/US renal BI Procedure Note Deshaun Alanis MD - 05/11/2025 [facility] [place] [address] [place] [address] Ultrasound Report Signed Patient: Natalie Cespedes [facility]#: [id number] : 1985Acct:[id number] Age/Sex: 40 / FADM Date: 05/10/25 Loc: Room: [id number]: REG CLI Attending Dr: Shaun Rebollar MD Ordering Provider: SHAUN REBOLLAR MD Date of Service: 05/11/25 US/US renal BI: Pyelonephritis Copies to: SHAUN REBOLLAR MD US renal BI 05/11/2025 12:05 PM SIGNS AND SYMPTOMS: Pyelonephritis Renal with jets COMPARISON: None. FINDINGS: Right kidney measures 11.19 cm x 6.36 cm x 5.48 cm . There is mildright-sided hydronephrosis. No evidence of mass. Left kidney measures 10.67 cm x 4.93 cm x 5.04 cm . No mass orhydronephrosis. The urinary bladder is morphologically normal. Bilateral ureteral jetsare visualized. No free fluid is seen in the pelvis. Before voiding, the bladder measures 2.82 cm x 5.89 cm x 7.81 cm , whichcorresponds to an estimated volume of 67.92 mL . US/US renal BI IMPRESSION: There is mild hydronephrosis. Bilateral ureteral jets are noted. Impression dictated by: Dehsaun Alanis M.D. 05/11/2025 12:52 PM Dictation Location: [place] [address] Tech: Chantell Blake Transcribed By: PWS 05/11/25 1252 Dictated By: Deshaun Alanis II, MD 05/11/25 1252 Signed By: <Electronically signed by Deshaun Alanis II, MD inOV> 05/11/25 1252 us Shaun Rebollar MD IMG US PROCEDURES Final Result * (ABNORMAL) CBC auto differential (05/10/2025 11:10 PM EDT) WBC 19.3(H) 3.8 - 11.6 [CFU]/mL 05/10/2025 11:25 PM EDT [facility] UNCORRECTED WHITE BLOOD COUNT 19.3(H) 3.8 - 11.6 10*3/uL 05/10/2025 11:25 PM EDT [facility] RBC 4.05 3.60 - 5.00 10*6/uL 05/10/2025 11:25 PM EDT [facility] HEMOGLOBIN 11.3(L) 11.8 - 15.4 g/dL 05/10/2025 11:25 PM EDT [facility] HEMATOCRIT 33.0(L) 34.0 - 46.4 % 05/10/2025 11:25 PM EDT [facility] MCV 81.4 80 - 100 fL 05/10/2025 11:25 PM EDT [facility] MCH 27.9 24.7 - 34.3 pg 05/10/2025 11:25 PM EDT [facility] MCHC 34.2 32.0 - 35.0 g/dL 05/10/2025 11:25 PM EDT [facility] RED CELL DISTRIBUTION WIDTH, RDW 14.6 11.9 - 15.3 % 05/10/2025 11:25 PM EDT [facility] PLATELET COUNT 361 150 - 450 10*3/uL 05/10/2025 11:25 PM EDT [facility] MEAN PLATELET VOLUME, MPV 7.3 6.3 - 10.7 fL 05/10/2025 11:25 PM EDT [facility] NEUTROPHILS, % 91.2 . % 05/10/2025 11:25 PM EDT [facility] LYMPHOCYTES, % 4.8 . % 05/10/2025 11:25 PM EDT [facility] MONOCYTE/MACROPHA GE, % 3.2 . % 05/10/2025 11:25 PM EDT [facility] EOSINOPHILS, % 0.4 . % 05/10/2025 11:25 PM EDT [facility] BASOPHILS, % 0.4 . % 05/10/2025 11:25 PM EDT [facility] NRBC 0.1 0 - 0.5 /100{WBC} 05/10/2025 11:25 PM EDT [facility] NEUTROPHILS 17.6(H) 1.8 - 7.7 10*3/uL 05/10/2025 11:25 PM EDT [facility] LYMPHOCYTES 0.9(L) 1.00 - 4.8 10*3/uL 05/10/2025 11:25 PM EDT [facility] MONOCYTES 0.6 0.0 - 0.8 10*3/uL 05/10/2025 11:25 PM EDT [facility] EOSINOPHILS 0.1 0.0 - 0.45 10*3/uL 05/10/2025 11:25 PM EDT [facility] BASOPHILS 0.1 0.0 - 0.2 10*3/uL 05/10/2025 11:25 PM EDT [facility] Blood (Blood) 05/10/2025 11: 10 PM EDT 05/10/2025 11:18 PM EDT Shaun Rebollar MD LAB BLOOD ORDERABLES Final Res ult [facility] [address] [place] [address], [facility] [address] [place] [address] * Lipase (05/10/2025 11:10 PM EDT) LIPASE 20.0 11.0 - 82.0 U/L 05/10/2025 11:45 PM EDT [facility] Other Topography unknown / Unknown 05/10/2025 11:10 PM EDT 05/10/2025 11:18 PM EDT us Shaun Rebollar MD LAB BLOOD ORDERABLES Final Res ult Performing Organization Address City/[facility]/ZIP Co de Phone Number [facility] [address] [place] [address], [facility] [address] [place] [address] * Amylase (05/10/2025 11:10 PM EDT) AMYLASE 48 29 - 103 U/L 05/10/2025 11:45 PM EDT [facility] Other Topography unknown / Unknown 05/10/2025 11:10 PM EDT 05/10/2025 11:18 PM EDT us Shaun Rebollar MD LAB BLOOD ORDERABLES Final Res ult Performing Organization Address [facility] Co de Phone Number [address] [address], [facility] [address] [place] [address] * (ABNORMAL) Comprehensive metabolic panel (05/10/2025 11:10 PM EDT) Glucose 111(H) 70 - 100 mg/dL 05/10/2025 11:45 PM EDT [facility] Comment: Random Glucose Reference Range is dependent on time and content of last meal. Glucose of more than 200 mg/dL in a nonstressed, ambulatory subject supports the diagnosis of Diabetes Mellitus. ADA recommended reference range BUN 10 7 - 25 mg/dL 05/10/2025 11:45 PM EDT [facility] CREATININE 0.68 0.60 - 1.20 mg/dL 05/10/2025 11:45 PM EDT [facility] ESTIMATED GFR >60.0 05/10/2025 11:45 PM EDT [facility] Sodium 136 136 - 145 mmol/L 05/10/2025 11:45 PM EDT [facility] Potassium, Bld 3.9 3.5 - 5.1 mmol/L 05/10/2025 11:45 PM EDT [facility] Chloride 106 98 - 107 mmol/L 05/10/2025 11:45 PM EDT [facility] Carbon Dioxide 19.3(L) 21.0 - 31.0 mmol/L 05/10/2025 11:45 PM EDT [facility] Anion Gap 14.6 6.0 - 15.0 05/10/2025 11:45 PM EDT [facility] Calcium 9.1 8.6 - 10.3 mg/dL 05/10/2025 11:45 PM EDT [facility] TOTAL PROTEIN 6.3(L) 6.4 - 8.9 g/dL 05/10/2025 11:45 PM EDT [facility] ALBUMIN LEVEL 3.6 3.5 - 5.7 g/dL 05/10/2025 11:45 PM EDT [facility] GLOBULIN 2.7 g/dL 05/10/2025 11:45 PM EDT [facility] ALBUMIN/GLOBULIN RATIO 1.3 05/10/2025 11:45 PM EDT [facility] BILIRUBIN,TOTAL 0.4 0.3 - 1.0 mg/dL 05/10/2025 11:45 PM EDT [facility] ASPARTATE AMINO TRANSFERASE 15 13 - 39 U/L 05/10/2025 11:45 PM EDT [facility] ALANINE AMINOTRANSFERASE 15 7 - 52 U/L 05/10/2025 11:45 PM EDT [facility] ALKALINE PHOSPHATASE 89 34 - 104 U/L 05/10/2025 11:45 PM EDT [facility] CREATININE CLR CALC PHARMACY 144.87 05/10/2025 11:45 PM EDT [facility] Other Topography unknown / Unknown 05/10/2025 11:10 PM EDT 05/10/2025 11:18 PM EDT us Shaun Rebollar MD LAB BLOOD ORDERABLES Final Res ult [facility] [address] [place] [address], [facility] [address] [place] [address] * fibronectin (05/10/2025 11:05 PM EDT) FIBRONECTIN Negative Negative 05/11/2025 12:02 AM EDT [facility] Other Topography unknown / Unknown 05/10/2025 11:05 PM EDT 05/10/2025 11:19 PM EDT Narrative [facility] - 05/11/2025 12:02 AM EDT Comment patients 22 - 34 6/7 weeks prior to vaginal exam Shaun Rebollar MD LAB BODY FLUIDS AND STOOLS ORD ERABLES Final Result [facility] [address] [place] [address], [facility] [address] [place] [address] * (ABNORMAL) AEROBIC DAVE CHARGE (NMIC56) (05/10/2025 10:30 PM EDT) AMIKACIN <16(S) 05/13/2025 7:51 AM EDT [facility] AMOXACILLIN/K CLAVULANATE <8/4(S) 05/13/2025 7:51 AM EDT [facility] AMPICILLIN >16(R) 05/13/2025 7:51 AM EDT [facility] AMPICILLIN/SULBACT AM 16/8(I) 05/13/2025 7:51 AM EDT [facility] AZTREONAM <4(S) 05/13/2025 7:51 AM EDT [facility] CEFAZOLIN <2(S) 05/13/2025 7:51 AM EDT [facility] CEFEPIME <2(S) 05/13/2025 7:51 AM EDT [facility] CEFTAZIDIME <1(S) 05/13/2025 7:51 AM EDT [facility] CEFTAZIDIME/AVIBAC CHENEY <4(S) 05/13/2025 7:51 AM EDT [facility] CEFTOLOZANE/TAZOBA CTAM <2(S) 05/13/2025 7:51 AM EDT [facility] CEFTRIAXONE <1(S) 05/13/2025 7:51 AM EDT [facility] CEFUROXIME <4(S) 05/13/2025 7:51 AM EDT [facility] CIPROFLOXACIN <0.25(S) 05/13/2025 7:51 AM EDT [facility] ERTAPENEM <0.5(S) 05/13/2025 7:51 AM EDT [facility] GENTAMICIN <2(S) 05/13/2025 7:51 AM EDT [facility] LEVOFLOXACIN <0.5(S) 05/13/2025 7:51 AM EDT [facility] MEROPENEM <1(S) 05/13/2025 7:51 AM EDT [facility] MEROPENEM/VABORBAC CHENEY <2(S) 05/13/2025 7:51 AM EDT [facility] NITROFURANTOIN <32(S) 05/13/2025 7:51 AM EDT [facility] PIPERACILLIN/TAZOB ACTAM <8(S) 05/13/2025 7:51 AM EDT [facility] TETRACYCLINE <4(S) 05/13/2025 7:51 AM EDT [facility] TIGECYCLINE <2(S) 05/13/2025 7:51 AM EDT [facility] TOBRAMYCIN <2(S) 05/13/2025 7:51 AM EDT [facility] TRIMETHOPRIM/SULFA METHOXAZOLE <0.5/9.5( S) 05/13/2025 7:51 AM EDT [facility] Urine Urine specimen obtained by clean catch procedure / Unknown 05/10/2025 10:30 PM EDT 05/10/2025 10:55 PM EDT Comment:Clean-Voided Midstre am us Shaun Rebollar MD [facility] Final Result [facility] [address] [place] [address], [facility] [address] [place] [address] * (ABNORMAL) Urinalysis with reflex microscopic (05/10/2025 10:30 PM EDT) COLOR,URINE Yellow Yellow 05/10/2025 10:59 PM [facility] APPEARANCE,URI NE Turbid(AA) Clear 05/10/2025 10:59 PM [facility] SPECIFICY GRAVITY,URINE 1.022 1.001 - 1.030 05/10/2025 10:59 PM [facility] PH,URINE 5.5 5.0 - 9.0 05/10/2025 10:59 PM [facility] LEUKOCYTE ESTERASE,URINE 4+ Negative 05/10/2025 10:59 PM [facility] NITRITE,URINE Negative Negative 05/10/2025 10:59 PM [facility] PROTEIN,URINE 100 Negative mg/dL 05/10/2025 10:59 PM [facility] GLUCOSE,URINE (UA) Normal Normal mg/dL 05/10/2025 10:59 PM [facility] KETONES,URINE 2+ Negative 05/10/2025 10:59 PM [facility] UROBILINOGEN,U RINE Normal Normal mg/dL 05/10/2025 10:59 PM [facility] BILIRUBIN,URIN E Negative Negative 05/10/2025 10:59 PM [facility] OCCULT BLOOD,URINE 2+ Negative 05/10/2025 10:59 PM [facility] RBC,URINE 20-49 0 - 4 [HPF] 05/10/2025 11:13 PM [facility] WBC,URINE Innumerable 0 - 4 [HPF] 05/10/2025 11:13 PM [facility] WBC CLUMP, URINE Many None Seen [LPF] 05/10/2025 11:13 PM [facility] SQUAMOUS EPITHELIAL CELL,URINE 1-2 0 - 2 [HPF] 05/10/2025 11:13 PM [facility] BACTERIA,URINE 2+ None Seen [HPF] 05/10/2025 11:13 PM [facility] HYALINE CASTS,URINE None 0 - 8 [LPF] 05/10/2025 11:13 PM [facility] MUCUS,URINE 4+(AA) [LPF] 05/10/2025 11:13 PM EDT [facility] Other 05/10/2025 10:3 0 PM EDT 05/10/2025 10:55 PM EDT Narrative [facility] - 05/10/2025 11:13 PM EDT Comment c/o urinary symptoms or increased blood pressure Name Collection Type:: Clean-Voided Midstream Shaun Rebollar MD LAB URINE ORDERABLES Final Res ult Performing Organization Address City/[facility] Co de Phone Number [facility] [address] [place] [address], [facility] [address] [place] [address] * Urine culture (05/10/2025 10:30 PM EDT) [facility] ORGANISM Escherichia coli 05/13/2025 7:51 AM EDT [facility] COLONY COUNT >100,000 05/13/2025 7:51 AM EDT [facility] Urine Urine specimen obtained by clean catch procedure / Unknown 05/10/2025 10:30 PM EDT 05/10/2025 10:55 PM EDT Comment:Clean-Voided Midstre am Shaun Rebollar MD LAB MICROBIOLOGY - GENERAL ORD ERABLES Final Result Performing Organization Address [facility] de Phone Number [facility] [address] [place] [address], [facility] [address] [place] [address] * URINARY TRACT INFECTION (HTRX) (04/28/2025 1:20 PM EDT) ACINETOBACTER BAUMANII 0 19.961 - 24.689 ppm 04/29/2025 7:12 AM EDT [facility] ACINETOBACTER BAUMANII Not Detected 19.961 - 24.689 ppm 04/29/2025 7:12 AM EDT [facility] CITROBACTER FREUNDII 0 23.000 - 32.015 ppm 04/29/2025 7:12 AM EDT [facility] CITROBACTER FREUNDII Not Detected 23.000 - 32.015 ppm 04/29/2025 7:12 AM EDT [facility] ENTEROBACTER AEROGENES, CLOACAE 0 23.000 - 32.290 ppm 04/29/2025 7:12 AM EDT [facility] ENTEROBACTER AEROGENES, CLOACAE Not Detected 23.000 - 32.290 ppm 04/29/2025 7:12 AM EDT [facility] ENTEROCOCCUS FAECALIS, FAECIUM 0 26.000 - 33.043 ppm 04/29/2025 7:12 AM EDT [facility] ENTEROCOCCUS FAECALIS, FAECIUM Not Detected 26.000 - 33.043 ppm 04/29/2025 7:12 AM EDT [facility] ESCHERICHIA COLI 0 23.000 - 28.500 ppm 04/29/2025 7:12 AM EDT [facility] ESCHERICHIA COLI Not Detected 23.000 - 28.500 ppm 04/29/2025 7:12 AM EDT [facility] KLEBSIELLA PNEUMONIAE, OXYTOCA 0 23.000 - 31.865 ppm 04/29/2025 7:12 AM EDT [facility] KLEBSIELLA PNEUMONIAE, OXYTOCA Not Detected 23.000 - 31.865 ppm 04/29/2025 7:12 AM EDT [facility] MORGANELLA MORGANII 0 19.961 - 24.689 ppm 04/29/2025 7:12 AM EDT [facility] MORGANELLA MORGANII Not Detected 19.961 - 24.689 ppm 04/29/2025 7:12 AM EDT [facility] PROTEUS MIRABILIS, VULGARIS 0 23.000 - 28.500 ppm 04/29/2025 7:12 AM EDT [facility] PROTEUS MIRABILIS, VULGARIS Not Detected 23.000 - 28.500 ppm 04/29/2025 7:12 AM EDT [facility] PSEUDOMONAS AERUGINOSA 0 23.000 - 31.801 ppm 04/29/2025 7:12 AM EDT [facility] PSEUDOMONAS AERUGINOSA Not Detected 23.000 - 31.801 ppm 04/29/2025 7:12 AM EDT [facility] STAPHYLOCOCCUS AUREUS 0 26.000 - 31.595 ppm 04/29/2025 7:12 AM EDT [facility] STAPHYLOCOCCUS AUREUS Not Detected 26.000 - 31.595 ppm 04/29/2025 7:12 AM EDT [facility] STREPTOCOCCUS AGALACTIAE (GROUP B STREP) 0 26.000 - 32.435 ppm 04/29/2025 7:12 AM EDT [facility] STREPTOCOCCUS AGALACTIAE (GROUP B STREP) Not Detected 26.000 - 32.435 ppm 04/29/2025 7:12 AM EDT [facility] RINA ALBICANS, PARAPSILOSIS, TROPICALIS 0 23.000 - 30.347 ppm 04/29/2025 7:12 AM EDT [facility] RINA ALBICANS, PARAPSILOSIS, TROPICALIS Not Detected 23.000 - 30.347 ppm 04/29/2025 7:12 AM EDT [facility] RINA GLABRATA 0 23.000 - 31.618 ppm 04/29/2025 7:12 AM EDT [facility] RINA GLABRATA Not Detected 23.000 - 31.618 ppm 04/29/2025 7:12 AM EDT [facility] RINA KRUSEI 0 23.000 - 30.873 ppm 04/29/2025 7:12 AM EDT [facility] RINA KRUSEI Not Detected 23.000 - 30.873 ppm 04/29/2025 7:12 AM EDT [facility] SERRATIA MARCESCENS 0 23.000 - 31.581 ppm 04/29/2025 7:12 AM EDT [facility] SERRATIA MARCESCENS Not Detected 23.000 - 31.581 ppm 04/29/2025 7:12 AM EDT [facility] STREPTOCOCCUS PYOGENES (GROUP A STREP) 0 19.961 - 24.689 ppm 04/29/2025 7:12 AM EDT [facility] STREPTOCOCCUS PYOGENES (GROUP A STREP) Not Detected 19.961 - 24.689 ppm 04/29/2025 7:12 AM EDT [facility] STAPHYLOCOCCUS EPIDERMIDIS, HAEMOLYTICUS, LUGDUNENSIS, SAPROPHYTICUS (URINA 0 19.961 - 24.689 ppm 04/29/2025 7:12 AM EDT [facility] STAPHYLOCOCCUS EPIDERMIDIS, HAEMOLYTICUS, LUGDUNENSIS, SAPROPHYTICUS (URINA Not Detected 19.961 - 24.689 ppm 04/29/2025 7:12 AM EDT [facility] STAPHYLOCOCCUS EPIDERMIDIS, HAEMOLYTICUS, LUGDUNENSIS, SAPROPHYTICUS (URINA 0 19.961 - 24.689 ppm 04/29/2025 7:12 AM EDT [facility] STAPHYLOCOCCUS EPIDERMIDIS, HAEMOLYTICUS, LUGDUNENSIS, SAPROPHYTICUS (URINA Not Detected 19.961 - 24.689 ppm 04/29/2025 7:12 AM EDT [facility] Urine 04/28/2025 1:20 PM EDT 04/29/2025 1:34 AM EDT us [facility] BLOOD ORDERABLES Final Resul t [facility] [address] [id number] * US OB PLACENTA (04/15/2025 4:27 PM EDT) Anatomical Region Laterality Modality Other 04/15/2025 4:27 PM EDT Narrative 04/15/2025 4:30 [place] [address] Ultrasound Report Signed Patient: NATALIE CESPEDES MR#: [id number] : 1985 Acct:[id number] Age/Sex: 40 / F ADM Date: Loc: [facility] 250-[address]: Candice Anderson D.O. Ordering Physician: Candice Anderson D.O. Date of Service: 04/15/25 Procedure(s): US OB placenta Accession Number(s): [id number] cc: Candice Anderson D.O.; Lynn Jose D.O. The [place] [id number] Patient Name: NATALIE CESPEDES MRN: [id number] date: 1985 Sex: F Assigned Patient Location: [facility] Current Patient Location: Accession/Order Number: [id number] Exam Date: 04/15/2025 16:26 Report Date: 04/15/2025 16:27 At the request of: CANDICE ANDERSON DO Procedure: US OB placenta Cervical length/placental ultrasound. Reason for exam: Vaginal bleeding for one day. COMPARISON: None. TECHNIQUE: Transabdominal imaging of the gravid uterus was obtained. FINDINGS: Cervical length is normal at 5.2 cm without evidence of funneling. Placenta is posterior location without focal abnormality. Single intrauterine is seen with a heart rate of 148 bpm. US/US OB placenta IMPRESSION: Normal cervical length without funneling. Unremarkable placental ultrasound. Impression dictated by: Jacob Almanza Jr., D.O. 04/15/2025 4:27 PM Dictation Location: [place] [address] Electronically authenticated by: [id number] Y Date: 04/15/2025 16:27 Dictated By: Jacob Almanza M.D. Signed By: 04/15/25 1630 DD/ 1627 TD/TT: Manufacturing Director: Procedure Note Radiology, Radiologist, MD - 04/16/2025 [place] [address] Ultrasound Report Signed Patient: NATALIE CESPEDES SMR#: [id number] : 1985Acct:[id number] Age/Sex: 40 / FADM Date: Loc: [facility] 250-[address]: Candice Anderson D.O. Ordering Physician: Candice Anderson D.O. Date of Service: 04/15/25 Procedure(s): US OB placenta Accession Number(s): [id number] cc: Candice Anderson D.O.; Lynn Jose D.O. [place] [id number] Patient Name: NATALIE CESPEDES MRN: [id number] date: 1985 Sex: F Assigned Patient Location: [facility] Current Patient Location: Accession/Order Number: [id number] Exam Date: 04/15/2025 16:26 Report Date: 04/15/2025 16:27 At the request of: CANDICE ANDERSON DO Procedure: US OB placenta Cervical length/placental ultrasound. Reason for exam: Vaginal bleeding for one day. COMPARISON: None. TECHNIQUE: Transabdominal imaging of the gravid uterus was obtained. FINDINGS: Cervical length is normal at 5.2 cm without evidence offunneling. Placenta is posterior location without focal abnormality. Single intrauterine is seen with a heart rate of 148 bpm. US/US OB placenta IMPRESSION: Normal cervical length without funneling. Unremarkable placental ultrasound. Impression dictated by: Jacob Almanza Jr., D.O. 04/15/2025 4:27 PM Dictation Location: [place] [address] Electronically authenticated by: [id number] Y Date: 6:27 Dictated By: Jacob Almanza M.D. Signed By:04/15/25 1630 DD/ 1627 TD/TT: Manufacturing Director: us Candice Anderson DO [facility] Final Result * US OB CERVICAL LENGTH (04/15/2025 4:27 PM EDT) Anatomical Region Laterality Modality Other 04/15/2025 4:27 PM EDT Narrative 04/15/2025 4:30 PM EDT [place] [id number] Ultrasound Report Signed Patient: NATALIE CESPEDES MR#: [id number] : 1985 Acct:[id number] Age/Sex: 40 / F ADM Date: Loc: [facility] 250- Attending Dr: Candice Anderson D.O. Ordering Physician: Candice Anderson D.O. Date of Service: 04/15/25 Procedure(s): US OB cervical length Accession Number(s): [id number] cc: Candice Anderson D.O.; Lynn Jose D.O. The [address] [address] Patient Name: NATALIE CESPEDES MRN: [id number] date: 1985 Sex: F Assigned Patient Location: [facility] Current Patient Location: Accession/Order Number: [id number] Exam Date: 04/15/2025 16:26 Report Date: 04/15/2025 16:27 At the request of: CANDICE ANDERSON DO Procedure: US OB placenta Cervical length/placental ultrasound. Reason for exam: Vaginal bleeding for one day. COMPARISON: None. TECHNIQUE: Transabdominal imaging of the gravid uterus was obtained. FINDINGS: Cervical length is normal at 5.2 cm without evidence of funneling. Placenta is posterior location without focal abnormality. Single intrauterine is seen with a heart rate of 148 bpm. US/US OB cervical length IMPRESSION: Normal cervical length without funneling. Unremarkable placental ultrasound. Impression dictated by: Jacob Almanza Jr., D.O. 04/15/2025 4:27 PM Dictation Location: [place] [address] Electronically authenticated by: [id number] Y Date: 04/15/2025 16:27 Dictated By: Jacob Almanza M.D. Signed By: 04/15/25 1630 DD/ 1627 TD/TT: Manufacturing Director: Procedure Note Radiology, Radiologist, MD - 04/16/2025 [place] [address] Ultrasound Report Signed Patient: NATALIE CESPEDES SMR#: [id number] : 1985Acct:[id number] Age/Sex: 40 / FADM Date: Loc: [facility] 250-[address]: Candice Anderson D.O. Ordering Physician: Candice Anderson D.O. Date of Service: 04/15/25 Procedure(s): US OB cervical length Accession Number(s): [id number] cc: Candice Anderson D.O.; Lynn Jose D.O. [address] [address] Patient Name: NATALIE CESPEDES MRN: [id number] date: 1985 Sex: F Assigned Patient Location: [facility] Current Patient Location: Accession/Order Number: [id number] Exam Date: 04/15/2025 16:26 Report Date: 04/15/2025 16:27 At the request of: CANDICE ANDERSON DO Procedure: US OB placenta Cervical length/placental ultrasound. Reason for exam: Vaginal bleeding for one day. COMPARISON: None. TECHNIQUE: Transabdominal imaging of the gravid uterus was obtained. FINDINGS: Cervical length is normal at 5.2 cm without evidence offunneling. Placenta is posterior location without focal abnormality. Single intrauterine is seen with a heart rate of 148 bpm. US/US OB cervical length IMPRESSION: Normal cervical length without funneling. Unremarkable placental ultrasound. Impression dictated by: Jacob Almanza Jr., D.O. 04/15/2025 4:27 PM Dictation Location: [place] [address] Electronically authenticated by: [id number] Y Date: 6:27 Dictated By: Jacob Almanza M.D. Signed By:04/15/25 1630 DD/ 1627 TD/TT: Manufacturing Director: us Candice Anderson DO [facility] Final Result * (ABNORMAL) [facility] URINE MICROSCOPIC ONLY (04/15/2025 2:55 PM EDT) [facility] WBC 10-20(A) NONE SEEN #/HPF TBH TBH RBC 0-2 0 - 2 #/HPF [facility] BACTERIA URINE LARGE(A) NONE SEEN #/HPF [facility] MUCUS URINE MODERATE(A ) NONE SEEN [facility] SQUAMOUS EPITHELIAL CELL URINE MODERATE(A ) NONE/RARE #/LPF TBH CRYSTALS SEEN? None Seen None Seen #/HPF TB[facility] CAST SEEN? NONE SEEN NONE SEEN #/LPF [facility] URINE CULTURE INDICATED YES-LC [facility] 04/15/2025 2:55 PM EDT 04/15/2025 3:05 PM EDT Narrative [facility] - 04/15/2025 3:33 PM EDT Candice Ordonezo DO [facility] Final Result Performing Organization Address [facility] Co de Phone Number [facility] * (ABNORMAL) [facility] UA (CLEAN/CATCH) BARMAID/MICRO IF IND. (04/15/2025 2:55 PM EDT) COLOR URINE LT. YELLOW YELLOW TBH CLARITY URINE SL CLOUDY CLEAR TBH SPECIFIC GRAVITY URINE 1.015 1.005 - 1.025 TBH PH URINE 6.5 5.0 - 9.0 TBH PROTEIN URINE TRACE NEG/TRACE mg/dL TBH GLUCOSE URINE UA NEGATIVE NEGATIVE mg/dL TB[facility] BILIRUBIN URINE NEGATIVE NEGATIVE TBH KETONES URINE NEGATIVE NEGATIVE mg/dL TBH BLOOD URINE NEGATIVE NEGATIVE TBH NITRITE URINE POSITIVE(A) NEGATIVE TBH UROBILINOGEN URINE 1.0 0.2 - 1.0 EU/dL TBH LEUKOCYTE ESTERASE URINE SMALL(A) NEGATIVE TBH URINE MICROSCOPIC INDICATED YES [facility] 04/15/2025 2:55 PM EDT 04/15/2025 3:05 PM EDT Narrative [facility] - 04/15/2025 3:33 PM EDT Candicereba Ordonezo DO [facility] Final Result Performing Organization Address [facility] Co de Phone Number CLINCATALINONC [facility] * Pap Smear (02/09/2025 12:00 AM EDT) Swab Cervical swab / Unknown [facility] CYTOLOGY ORDERABLES Final Re sult Performing Organization Address City/State/[facility] Co de Phone Number EXTERNAL LAB from Last 3 Months or Most Recently Relevant to [place] [id number] BS
--- NOTE | 2025-06-14 10:57 | US_ITS ---
[address] [address] Patient Name: NATALIE CESPEDES MRN: [id number] date: 1985 Sex: F Assigned Patient Location: Current Patient Location: US Accession/Order Number: [id number] Exam Date: 06/14/2025 10:58 Report Date: 06/14/2025 12:01 At the request of: TYRA OLMSTEAD Procedure: US OB growth Growth ultrasound. Reason for exam: Size effusion consistent with dates. COMPARISON: Ultrasound 04/15/2025. FINDINGS: Single live intrauterine measuring 32 weeks 6 days by anatomic measurements. Estimated weight is 2061 g. heart rate 1 41 bpm. MERCEDES is 20.30 cm. position is cephalic at time of scanning. US/US OB growth IMPRESSION: Single live intrauterine 32 weeks 6 days by anatomic measurements. Appropriate growth by dating. Impression dictated by: Jacob Almanza Jr., D.O. 06/14/2025 12:01 PM Dictation Location[facility] Electronically authenticated by: [id number] Y Date: 06/14/2025 12:01
--- OUTSIDE RECORDS SUMMARY | 2025-06-14 10:57 | XMS_ITS | Encounter Summary ---
Author Organization [facility] Address [address] [place] [address] Care Team Providers Care Heavy Equipment Plumbing Supervisor Name Role Phone Unavailable Primary Care Provider Unavailabl e Encounter Details Date Type Department Care Team (Late st Contact Info) Description 01/28/2025 Abstract [facility]ESSINA [address] [place] [address] Greg Anderosn, DO [address] [place], [id number] Social History Tobacco Use Types Packs/Day Years [...] 11:50 AM EDT Routine HAL MESSINA [address] [facility] [place] [place] [address] Suzanne Valdivia, DEVELOPMENT SPECIALIST [address] [place] [address] documented as of this encounter Visit Diagnoses Not on filedocumented in this encounter
--- OUTSIDE RECORDS SUMMARY | 2025-06-14 10:57 | XMS_ITS | Encounter Summary ---
Author Organization [facility] Address [address] [facility] [place] [address] Care Team Providers Care Cvor Nurse Name Role Phone Unavailable Primary Care Provider Unavailabl e Encounter Details Date Type Department Care Team (Late st Contact Info) Description 01/08/2025 Abstract [facility] MESSINA [address] [place] [address] Greg Anderson, [address] [facility] [address] [place], [facility]11 Social History Tobacco Use Types [...] MESSINA [address] [facility] [place] [place] [address] Suzanne Valdivia, MAIL MESSENGER [address] [facility] [facility] [place] [address] documented as of this encounter Visit Diagnoses Not on filedocumented in this encounter
--- OUTSIDE RECORDS SUMMARY | 2025-06-14 10:57 | XMS_ITS | Encounter Summary ---
Author Organization [facility] Address [address] [facility] [place] [address] Care Team Providers Care Furniture Mover Helper Name Role Phone Unavailable Primary Care Provider Unavailabl e Encounter Details Date Type Department Care Team (Late st Contact Info) Description 03/08/2025 Abstract [facility] MESSINA [address] [facility] [place] [address] Greg Anderson, DO [address] [facility] [address] [place], [facility]11 Social [...] 11:50 AM EDT Routine HAL MESSINA [address] [facility] [place] [address] Suzanne Valdivia, POWER PLANT SUPERINTENDENT [address] [facility] [place] [address] documented as of this encounter Visit Diagnoses Not on filedocumented in this encounter
--- OUTSIDE RECORDS SUMMARY | 2025-06-14 10:57 | XMS_ITS | Encounter Summary ---
Author Organization [facility] Address [address] [facility] [place] [address] Care Team Providers Care Employee Benefits Attorney Name Role Phone Unavailable Primary Care Provider Unavailabl e Encounter Details Date Type Department Care Team (Late st Contact Info) Description 05/04/2025 Abstract [facility] MESSINA [address] [facility] [address] Greg Anderson, DO [address] [facility] [address] [place], [facility]11 Social History Tobacco Use Types Packs/Day [...] 11:50 AM EDT Routine HAL MESSINA [address] [place] [address] Suzanne Valdivia, ASSOCIATE EMBALMER/FUNERAL DIRECTOR [address] [facility] [place] [address] documented as of this encounter Visit Diagnoses Not on filedocumented in this encounter
--- OUTSIDE RECORDS SUMMARY | 2025-06-14 10:57 | XMS_ITS | Encounter Summary ---
Author Organization [facility] Address [address] [facility] [place] [address] Care Team Providers Care Dustless Operator Name Role Phone Unavailable Primary Care Provider Unavailabl e Encounter Details Date Type Department Care Team (Late st Contact Info) Description 11/18/2024 Abstract [facility] MESSINA [address] [facility] [place] [address] Greg Anderson DO [address] [facility] [facility] [address] [place], [facility]11 Social History Tobacco Use Types Packs/Day [...] Info) Description 06/14/2025 11:50 AM EDT Routine [facility] MESSINA [address] [facility] [place] [address] Suzanne Valdivia, MARINA [address] [place] [address] documented as of this encounter Visit Diagnoses Not on filedocumented in this encounter
--- OUTSIDE RECORDS SUMMARY | 2025-06-14 10:57 | XMS_ITS | Encounter Summary ---
Author Organization [facility] Address [address] [facility] [place] [address] Care Team Providers Care Partner Alliance Manager Name Role Phone Unavailable Primary Care Provider Unavailabl e Encounter Details Date Type Department Care Team (Late st Contact Info) Description 10/29/2024 Abstract [facility] S[facility] MESSINA [address] [place] [address] Greg Anderson DO [address] [facility] [address] [place], [facility]11 Social History Tobacco Use Types Packs/Day Years [...] 11:50 AM EDT Routine [facility] MESSINA [address] [place] [address] Suzanne Valdivia, MARINA [address] [facility] [place] [address] documented as of this encounter Visit Diagnoses Not on filedocumented in this encounter
--- OUTSIDE RECORDS SUMMARY | 2025-06-14 10:57 | XMS_ITS | Encounter Summary ---
Author Organization [facility] Address [address] [facility] [place] [address] Care Team Providers Care Supervisor Blood Name Role Phone Unavailable Primary Care Provider Unavailabl e Encounter Details Date Type Department Care Team (Late st Contact Info) Description 02/09/2025 Abstract [facility] MESSINA [address] [facility] [address] Greg Anderson, DO [address] [place], [facility]11 Social History [...] 11:50 AM EDT Routine HAL MESSINA [address] [place] [address] Suzanne Valdivia, METAL MELTER [address] [place] [address] documented as of this encounter Visit Diagnoses Not on filedocumented in this encounter
--- OUTSIDE RECORDS SUMMARY | 2025-06-14 10:57 | XMS_ITS | Encounter Summary ---
Author Organization [facility] Address [address] [facility] [place] [address] Care Team Providers Care Couples Therapist Name Role Phone Unavailable Primary Care Provider Unavailabl e Encounter Details Date Type Department Care Team (Late st Contact Info) Description 04/23/2025 Abstract [facility] MESSINA [address] [place] [address] Greg Anderson, [address] [facility] [address] [place], [facility]11 Social History Tobacco Use Types Packs/Day [...] 11:50 AM EDT Routine HAL MESSINA [address] [place] [address] Suzanne Valdivia, SUPERSONIC ENGINEER [address] [facility] [place] [address] documented as of this encounter Visit Diagnoses Not on filedocumented in this encounter
--- OUTSIDE RECORDS SUMMARY | 2025-06-14 10:57 | XMS_ITS | Clinical Summary ---
Author Organization Truist tem Address [id number] [address] [place] [address] Care Team Providers Care Deli Worker Name Role Phone Unavailable Primary Care Provider [...] Encounters Date Type Department Care Team Description 05/20/2025 Travel 04/22/2025 Travel 04/07/2025 Telephone Maternal- Medicine at [facility] [address] [place] [id number] Lilly Rust CMA 03/18/2025 10:30 AM EDT Telemedicine Maternal- Medicine at [facility] [address] [place] [address] Liv Aguirre LD Karl, Deborah, LD Insulin controlled gestational diabetes mellitus (GDM) in second trimester 03/18/2025 Travel from Last 3 Months Family History Medical [...] 03/11/2025 9:25 AM EDT Plan of Treatment Health Maintenance Due Date Last Done Comments Depression Screening 1999 Adult BMI Follow Up Plan 2005 DTaP,Tdap and Td Vaccines (1 - Tdap) 2006 COVID-19 Vaccine (2 - season) 05/10/202510/2020 Influenza Vaccine 05/10/2025 06/15/2022, 05/23/2021 Adult BMI Screening 03/11/2026 03/11/2025 Tobacco Screening 03/11/2026 03/11/2025 Pap Smear 02/10/2028 02/09/2025 Medical Devices Not on file Procedures Procedure Name Priority Date/Time Associated Diagnosis Comments US MFM OB FOLLOW-UP, 1 FETUS Routine 05/20/2025 3:06 PM EDT Choroid plexus cyst of fetus in miranda Multigravida of advanced maternal age in second trimester Diet controlled gestational diabetes mellitus (GDM) in second trimester Hx of essential hypertension US MFM OB FOLLOW-UP, 1 FETUS Routine 04/22/2025 3:22 PM EDT Choroid plexus cyst of fetus in miranda Multigravida of advanced maternal age in second trimester from Last 3 Months Results * US MFM OB FOLLOW-UP, 1 FETUS (05/20/2025 3:06 PM EDT) Only the most recent of2 resultswithin the time period is included. Anatomical Region Laterality Modality OB-MACHINE OPERATOR CANE CUTTER Ultrasound 05/20/2025 2:25 PM EDT Narrative 05/20/2025 3:28 PM EDT NAME: RUBINA ESTRADA : 1985 SEX: F Accession Number: [id number] ORDERING PHYSICIAN: CANDICE ANDERSON REFERRING PHYSICIAN: CANDICE ANDERSON Coding ----- --------- Procedures 62186: Follow-up Ultrasound, per fetus Indication ----- --------- , Screening for follow-up survey, AMA- Supervision of elderly, Chronic hypertension affecting , Obesity in , History ----- --------- OB History 2. Para 0 [id number] Maternal Assessment ----- --------- Physical Exam Height 163 cm, 5 ft 4 in. Initial weight 122 kg, 269 lb. Initial BMI 46.17 kg/m Method ----- --------- Transabdominal ultrasound examination. ----- --------- Miranda . Number of fetuses: 1 Dating ----- --------- Previous Ultrasound on: 12/24/2024 Type of prior assessment: GA GA at prior assessment date 9 w + 0 d GA by previous U/S 30 w + 0 d MARCOS by previous Ultrasound: 07/29/2025 Ultrasound examination on: 05/20/2025 GA by U/S based upon: AC, BPD, Femur, HC GA by U/S 30 w + 1 d MARCOS by U/S: 07/28/2025 Assigned: based on ultrasound (GA), selected on 03/11/2025 Assigned GA (weeks days) 30 w + 0 d Assigned MARCOS: 07/29/2025 General Evaluation ----- --------- Cardiac activity Present. FHR 144 bpm. Presentation: cephalic Placenta: Placental site: posterior, previously documented away from cervical os Umbilical cord: Cord vessels: 3 vessel cord. Insertion site: documented previously Amniotic fluid: Amount of AF: normal amount. MVP 6.2 cm Biometry ----- --------- Standard BPD 75.9 mm 30w 3d 52% Hadlock OFD 95.7 mm 30w 6d 74% Eliana HC 270.9 mm 29w 4d 9% Hadlock Cerebellum tr 37.1 mm 30w 4d 52% Hill AC 276.6 mm 31w 5d 89% Hadlock Femur 54.2 mm 28w 5d 8% Hadlock Humerus 50.1 mm 29w 2d 36% Eliana HC / AC 0.98 EFW 1,578 g 54% Hadlock EFW (lb) 3 lb EFW (oz) 8 oz EFW by: Hadlock (INF-LZ-OU-FL) Extended Tibia 49.6 mm 29w 5d 43% Eliana Collection Systems Consultant 4.4 mm CM 7.0 mm 51% Nicolaides Inner IOD 16.6 mm Outer IOD 49.2 mm Head / Face / Neck Cephalic index 0.79 51% Nicolaides Nasal bone: documented previously Extremities / Bony Struc FL / BPD 0.71 FL / HC 0.20 FL / AC 0.20 Other Structures FHR 144 bpm Anatomy ----- --------- The following structures appear normal: Head/Neck: Cranium. Lateral ventricles. Cavum septi pellucidi. Cerebellum. Cisterna magna. Parenchyma. Vermis. Face: Lips. Nose. Heart/Thorax: 4-chamber view. RVOT view. LVOT view. 3-yofbvt-mfkbdcw view. Situs. Ductal arch view. Interventricular septum. Great vessels. Cardiac position. Cardiac axis. Cardiac size. Cardiac rhythm. Right lung. Left lung. Abdomen: Abdom. wall. Stomach. Kidneys. Bladder. Spine: Cervical spine. Thoracic spine. Lumbar spine. Sacral spine. The following structures were documented previously: Head / Neck Choroid plexus. Midline falx. Neck. Nuchal fold. Face Profile. Nasal bone. Maxilla. Mandible. Orbits. Heart / Thorax 3-vessel view. Aortic arch view. Bicaval view. Diaphragm. Abdomen Cord insertion. Small bowel. Large bowel. Right renal artery. Left renal artery. Genitals. Extremities/Skeleton: Right upper arm. Right forearm. Right hand. Left upper arm. Left forearm. Left hand. Right upper leg. Right lower leg. Right foot. Left upper leg. Left lower leg. Left foot. Maternal Structures ----- --------- Uterus Visualized Cervix Suboptimal Approach - Transabdominal Right Ovary Not visualized Left Ovary Not visualized Cul de Sac Suboptimal Impression ----- --------- Single live intrauterine . 30w 0d. Normal growth. EFW measures at the 54%, AC measures at the 89%. anatomic survey did not reveal sonographic evidence of any gross structural abnormalities. Amniotic fluid MVP measures 6.2 cm. Recommendations ----- --------- Please see [facility] recommendations from prior clinical and/or ultrasound report documentation. Subsequent follow up or other follow up as clinically determined by primary OB provider unless otherwise specified by [facility]. Results forwarded to ordering provider so they can follow up with the patient as necessary. Procedure Note Sam Sultana MD - 05/20/2025 NAME: RUBINA ESTRADA : 1985 SEX: F Accession Number: [id number] ORDERING PHYSICIAN: CANDICE ANDERSON REFERRING PHYSICIAN: CANDICE ANDERSON Coding ----- --------- Procedures [id number]: Follow-up Ultrasound, per fetus Indication ----- --------- , Screening for follow-up survey, AMA- Supervision of elderly, Chronichypertension affecting , Obesity in , History ----- --------- OB History 2. Para 0 [id number] Maternal Assessment ----- --------- Physical Exam Height 163 cm, 5 ft 4 in. Initial weight 122 kg, 269 lb.Initial BMI 46.17 kg/m Method ----- --------- Transabdominal ultrasound examination. ----- --------- Miranda . Number of fetuses: 1 Dating ----- --------- Previous Ultrasound on: 12/24/2024 Type of prior assessment: GA GA at prior assessment date 9 w + 0 d GA by previous U/S 30 w + 0 d MARCOS by previous Ultrasound: 07/29/2025 Ultrasound examination on: 05/20/2025 GA by U/S based upon: AC, BPD, Femur, HC GA by U/S 30 w + 1 d MARCOS by U/S: 07/28/2025 Assigned: based on ultrasound (GA), selected on 03/11/2025 Assigned GA (weeks days) 30 w + 0 d Assigned MARCOS: 07/29/2025 General Evaluation ----- --------- Cardiac activity Present. FHR 144 bpm. Presentation: cephalic Placenta: Placental site: posterior, previously documented away fromcervical os Umbilical cord: Cord vessels: 3 vessel cord. Insertion site: documentedpreviously Amniotic fluid: Amount of AF: normal amount. MVP 6.2 cm Biometry ----- --------- Standard BPD 75.9 mm 30w 3d 52% Hadlock OFD 95.7 mm 30w 6d 74% Eliana HC 270.9 mm 29w 4d 9% Hadlock Cerebellum tr 37.1 mm 30w 4d 52% Hill AC 276.6 mm 31w 5d 89% Hadlock Femur 54.2 mm 28w 5d 8% Hadlock Humerus 50.1 mm 29w 2d 36% Eliana HC / AC 0.98 EFW 1,578 g 54% Hadlock EFW (lb) 3 lb EFW (oz) 8 oz EFW by: Hadlock (PIL-DI-AR-FL) Extended Tibia 49.6 mm 29w 5d 43% Eliana Collection Systems Consultant 4.4 mm CM 7.0 mm 51% Nicolaides Inner IOD 16.6 mm Outer IOD 49.2 mm Head / Face / Neck Cephalic index 0.79 51% Nicolaides Nasal bone: documented previously Extremities / Bony Struc FL / BPD 0.71 FL / HC 0.20 FL / AC 0.20 Other Structures FHR 144 bpm Anatomy ----- --------- The following structures appear normal: Head/Neck: Cranium. Lateral ventricles. Cavum septi pellucidi. Cerebellum.Cisterna magna. Parenchyma. Vermis. Face: Lips. Nose. Heart/Thorax: 4-chamber view. RVOT view. LVOT view. 4-gwvffb-gtavboq view.Situs. Ductal arch view. Interventricular septum. Great vessels. Cardiac position. Cardiac axis. Cardiacsize. Cardiac rhythm. Right lung. Left lung. Abdomen: Abdom. wall. Stomach. Kidneys. Bladder. Spine: Cervical spine. Thoracic spine. Lumbar spine. Sacral spine. The following structures were documented previously: Head / Neck Choroid plexus. Midline falx. Neck. Nuchal fold. Face Profile. Nasal bone. Maxilla. Mandible. Orbits. Heart / Thorax 3-vessel view. Aortic arch view. Bicaval view. Diaphragm. Abdomen Cord insertion. Small bowel. Large bowel. Right renalartery. Left renal artery. Genitals. Extremities/Skeleton: Right upper arm. Right forearm. Right hand. Leftupper arm. Left forearm. Left hand. Right upper leg. Right lower leg. Right foot. Left upper leg. Left lower leg. Leftfoot. Maternal Structures ----- --------- Uterus Visualized Cervix Suboptimal Approach - Transabdominal Right Ovary Not visualized Left Ovary Not visualized Cul de Sac Suboptimal Impression ----- --------- Single live intrauterine . 30w 0d. Normal growth. EFW measures at the 54%, AC measures at the 89%. anatomic survey did not reveal sonographic evidence of any grossstructural abnormalities. Amniotic fluid MVP measures 6.2 cm. Recommendations ----- --------- Please see [facility] recommendations from prior clinical and/or ultrasoundreport documentation. Subsequent follow up or other follow up as clinically determined byprimary OB provider unless otherwise specified by M. Results forwarded to ordering provider so they can follow up with thepatient as necessary. us Candice Anderson DO [facility] US ORDERABLES Final Result from Last 3 Months Insurance [facility]
--- OUTSIDE RECORDS SUMMARY | 2025-06-14 10:57 | XMS_ITS | Encounter Summary ---
Author Organization [facility] Address [address] [facility] [place] [address] Care Team Providers Care Practical Ministries Professor Name Role Phone Unavailable Primary Care Provider Unavailabl e Encounter Details Date Type Department Care Team (Late st Contact Info) Description 02/08/2025 Abstract [facility] [address] [place] [address] Greg Anderson, DO [address] [facility] [address] [place], [id number] Social History Tobacco Use Types Packs/Day Years [...] 11:50 AM EDT Routine HAL MESSINA [address] [place] [address] Suzanne Valdivia, WELDER PRODUCTION LINE GAS [address] [facility] [facility] [address] [place] [address] documented as of this encounter Visit Diagnoses Not on filedocumented in this encounter
--- OUTSIDE RECORDS SUMMARY | 2025-06-14 10:57 | XMS_ITS | Encounter Summary ---
Author Organization [facility] Address [address] [facility] [place] [address] Care Team Providers Care Compliance Tester Name Role Phone Unavailable Primary Care Provider Unavailabl e Encounter Details Date Type Department Care Team (Late st Contact Info) Description 01/08/2025 Abstract [facility] MESSINA [address] [facility] [place] [address] Greg Anderson, [address] [facility] [address] [place], [facility] Social History Tobacco Use Types Packs/Day Years [...] 11:50 AM EDT Routine HAL MESSINA [address] [facility] [place] [address] Suzanne Valdivia, MORTGAGE ANALYST [address] [facility] [place] [address] documented as of this encounter Visit Diagnoses Not on filedocumented in this encounter
--- OUTSIDE RECORDS SUMMARY | 2025-06-14 10:57 | XMS_ITS | Encounter Summary ---
Author Organization [facility] Address [address] [facility] [place] [address] Care Team Providers Care Billet Cutter Name Role Phone Unavailable Primary Care Provider Unavailabl e Encounter Details Date Type Department Care Team (Late st Contact Info) Description 11/17/2024 Abstract [facility] MESSINA [address] [address] Greg Anderson DO [address] [facility] [address] [place], [facility]11 Social History Tobacco Use Types [...] 11:50 AM EDT Routine [facility] MESSINA [address] [address] Suzanne Valdivia, MARINA [address] [facility] [place] [address] documented as of this encounter Visit Diagnoses Not on filedocumented in this encounter
--- OUTSIDE RECORDS SUMMARY | 2025-06-14 10:57 | XMS_ITS | Encounter Summary ---
Author Organization [facility] Address [address] [facility] [place] [address] Care Team Providers Care Instrument Shop Supervisor Name Role Phone Unavailable Primary Care Provider Unavailabl e Encounter Details Date Type Department Care Team (Late st Contact Info) Description 01/11/2025 Abstract [facility] MESSINA [address] [facility] [place] [address] Greg Anderson, DO [address] [facility] [address] [place], [facility]11 Social History Tobacco Use Types [...] 11:50 AM EDT Routine HAL MESSINA [address] [facility] [place] [address] Suzanne Valdivia, MANAGEMENT LECTURER [address] [facility] [place] [address] documented as of this encounter Visit Diagnoses Not on filedocumented in this encounter
--- OUTSIDE RECORDS SUMMARY | 2025-06-14 10:57 | XMS_ITS | Encounter Summary ---
Author Organization [facility] Address [address] [facility] [place] [address] Care Team Providers Care Mind Reader Name Role Phone Unavailable Primary Care Provider Unavailabl e Encounter Details Date Type Department Care Team (Late st Contact Info) Description 05/11/2025 External Result Encounter [facility] External Department Unsolicited Shaun Gross MD [address] [facility] [address] [place] [address] Social History Tobacco Use Types Packs/Day Years [...] AM EDT Routine [facility] [address] [place] [address] Suzanne Valdivia, MARINA [address] [place] [address] documented as of this encounter Procedures Procedure Name Priority Date/Time Associated Diagnosis Comments US RENAL COMPLETE 05/11/2025 12: 52 PM EDT documented in this encounter Results * US renal complete (05/11/2025 12:52 PM EDT) Anatomical Region Laterality Modality Kidney Ultrasound 05/11/2025 12:5 2 PM EDT Impressions 05/11/2025 12:55 PM EDT There is mild hydronephrosis. Bilateral ureteral jets are noted. Impression dictated by: Deshaun Alanis M.D. 05/11/2025 12:52 PM Dictation Location: [place] [address] Tech: Chantell Blake Transcribed By: LAURA 05/11/25 1252 Dictated By: Deshaun Alanis II, MD 05/11/25 1252 Signed By: <Electronically signed by Deshaun Alanis II, MD in OV> 05/11/25 1252 Narrative 05/11/2025 12:55 PM EDT [facility] [place] [address] [place] [address] Ultrasound Report Signed Patient: Pallavi Wen MR#: [id number] : 1985 Acct:[id number] Age/Sex: 40 / F ADM Date: 05/10/25 Loc: Room: 4O2525-1 Type: REG CLI Attending Dr: Shaun Gross MD Ordering Provider: SHAUN GROSS MD Date of Service: 05/11/25 US/US renal BI: Pyelonephritis Copies to: SHAUN GROSS MD US renal BI 05/11/2025 12:05 PM [...] Procedure Note Deshaun Alanis MD - 05/11/2025 [facility] [place] [address] [place] [address] Ultrasound Report Signed Patient: Pallavi Wen SMR#: [id number] : 1985Acct:[id number] Age/Sex: 40 / FADM Date: 05/10/25 Loc: Room: 5J4029-7Jitn: REG CLI Attending Dr: Shaun Gross MD Ordering Provider: SHAUN GROSS MD Date of Service: 05/11/25 US/US renal BI: Pyelonephritis Copies to: SHAUN GROSS MD US renal BI 05/11/2025 12:05 PM [...] Alanis M.D. 05/11/2025 12:52 PM Dictation Location: [place] [address] Tech: Chantell Crumpreba Transcribed By: PWS 05/11/25 1252 Dictated By: Deshaun Alanis II, MD 05/11/25 1252 Signed By: <Electronically signed by Deshaun Alanis II, MD inOV> 05/11/25 1252 us Shaun Gross MD IMG US PROCEDURES Final Result documented in this encounter Visit Diagnoses Not on filedocumented in this encounter
--- OUTSIDE RECORDS SUMMARY | 2025-06-14 10:57 | XMS_ITS | Encounter Summary ---
Author Organization [facility] Address [address] [place] [address] Care Team Providers Care Mail Censor Name Role Phone Unavailable Primary Care Provider Unavailabl e Encounter Details Date Type Department Care Team (Late st Contact Info) Description 03/15/2025 Abstract [facility] MESSINA [address] [place] [address] Hina Moura MA Social History Tobacco [...] 11:50 AM EDT Routine [facility] MESSINA [address] [place] [address] Suzanne Valdivia NP [address] [place] [address] documented as of this encounter Visit Diagnoses Not on filedocumented in this encounter
--- OUTSIDE RECORDS SUMMARY | 2025-06-14 10:57 | XMS_ITS | Encounter Summary ---
Author Organization [facility] Address [address] [place] [address] Care Team Providers Care Electronics System Mechanic Name Role Phone Unavailable Primary Care Provider Unavailabl e Encounter Details Date Type Department Care Team (Late st Contact Info) Description 02/23/2025 Orders Only [facility] MESSINA [address] [place] [address] Tami Leyva LPN [address] [place] [address] Social History Tobacco Use Types Packs/Day Years [...] 11:50 AM EDT Routine [facility] MESSINA [address] [place] [address] Suzanne Valdivia, MARINA [address] [place] [address] documented as of this encounter Procedures [...]
--- OUTSIDE RECORDS SUMMARY | 2025-06-14 10:57 | XMS_ITS | Encounter Summary ---
Author Organization [facility] Address [address] [facility] [place] [address] Care Team Providers Care Harbor Master Name Role Phone Unavailable Primary Care Provider Unavailabl e Encounter Details Date Type Department Care Team (Late st Contact Info) Description 05/20/2025 Abstract [facility] MESSINA [address] [facility] [address] Greg Anderson, DO [address] [facility] [address] [place], [facility]11 Social History Tobacco Use Types Packs/Day Years [...] 11:50 AM EDT Routine HAL MESSINA [address] [place] [address] Suzanne Valdivia, BARREL LAPPER [address] [facility] [place] [address] documented as of this encounter Visit Diagnoses Not on filedocumented in this encounter
--- OUTSIDE RECORDS SUMMARY | 2025-06-14 10:57 | XMS_ITS | Clinical Summary ---
Author Organization [facility] Address [address] [place] [address], [address] [place] [address] Care Team Providers Care Substance Abuse Prevention Coordinator Name Role Phone Unavailable Primary Care Provider [...]
== END 2025-06-14 10:55 | disposition home or self-care (01) ==
LOC: US 10:54
PROVIDERS: PCP Family Medicine; Visit Provider Physician Assistant
DX: O26.843 Uterine size-date discrepancy, third trimester (principal); Z3A.32 32 weeks gestation of pregnancy
CPT/HCPCS: 76816

== ENCOUNTER 2025-06-29 09:19 | Outpatient (OUT) | payer BC, SELFPAY ==
--- OUTSIDE RECORDS SUMMARY | 2025-06-28 09:40 | XMS_ITS | Encounter Summary ---
Author Organization [facility] Address [address] [facility] [place] [address] Care Team Providers Care Garbage Stoker Name Role Phone Unavailable Primary Care Provider Unavailabl e Reason for Referral * (Routine) - IncompleteSpecialtyDiagnoses / ProceduresReferred By Contact Referred To ContactRadiology Diagnoses Chronic hypertension Palpitations Procedures Echocardiogram 2D complete Greg Anderson DO [address] [place] [address] Phone: tel: fax: Referral IDStatusReasonStart DateExpiration DateVisits RequestedVisits [id number] Perform Procedure / Reason for Visit * ReasonCommentsRoutine Visit Encounter Details DateTypeDepartmentCare Team (Latest Contact Info)Ykvvscanqka15/20/2025 9:40 AM EDTRoutine [facility] [address] [place] [phone] Greg Anderson DO [address] [place] [address] 35 weeks gestation of ([facility]); Third trimester ([facility]); Gestational diabetes mellitus (GDM), antepartum, gestational diabetes method of control unspecified([facility]); Chronic hypertension; H/O miscarriage, currently ([facility]); UTI symptoms; Palpitations; Heartburn during , antepartum ([facility]) Social History Tobacco UseTypesPacks/DayYears UsedDateSmoking Tobacco: Never Assessed Estimated Date of VjnygcpeFtlgvggnZdq42/20/2025Based on UltrasoundSex and Gender InformationValueDate RecordedSex Assigned at OibpkHgtiup69/21/2025 1:58 PM EST Legal SgsIkaokm73/15/2023 6:58 PM EDTGender IlzadgsxSbasvb05/21/2025 1:58 PM EST Sexual KykgghdzkmnDrlmqeyg59/21/2025 1:58 PM ESTdocumented as of this encounter Last Filed Vital Signs Vital SignReadingTime TakenCommentsBlood Apgnvwlp444/801 9:58 AM EDT Pulse--Temperature--Respiratory Rate--Oxygen Saturation--Inhaled Oxygen Concentration--Jjakna332 kg (269 lb)06/28/2025 9:58 AM EDTHeight--Body Mass [...] nursing note reviewed. Exam conducted with a svp business development present. Vitals: There is no height or weight on file to calculate BMI. BP: 120/80 No LMP recorded. Patient is . Assessment/Plan ICD-10-CM 1. 35 weeks gestation of ([facility]) Z3A.35 POCT urinalysis dipstick manually resulted US biophysical profile w non stress test 2. Third trimester ([facility]) Z34.93 POCT urinalysis dipstick manually resulted US biophysical profile w non stress test 3. Gestational diabetes mellitus (GDM), antepartum, gestational diabetes method of control unspecified ([facility]) O24.419 POCT urinalysis dipstick manually resulted US biophysical profile w non stress test 4. Chronic hypertension I10 US biophysical profile w non stress test 5. H/O miscarriage, currently ([facility]) O09.299 US biophysical profile w non stress [...] Plan of Treatment DateTypeDepartmentCare Team (Latest Contact Info)Jpzddubozsd04/27/2025 1:30 PM EDTRoutine [facility] [address] [phone] Grge Anderson DO [address] [place] [address] NameTypePriorityAssociated DiagnosesOrder ScheduleUS biophysical profile w non stress testImagingRoutine 35 weeks gestation of ([facility]) Third trimester ([facility]) Gestational diabetes mellitus (GDM), antepartum, gestational diabetes method of control unspecified([facility]) Chronic hypertension H/O miscarriage, currently ([facility]) Expected: 06/28/2025 (Approximate), Expires: 12/27/2025Urine cultureMicrobiology Routine UTI symptoms Ordered: 06/28/2025ECG 12 lead unit performedECGRoutine Chronic hypertension Palpitations Expected: 06/28/2025 (Approximate), Expires: 06/28/2026Echocardiogram 2D completeEchocardiographyRoutine Chronic hypertension Palpitations Expected: 06/28/2025 (Approximate), Expires: 06/28/2027documented as of this encounter Procedures Procedure NamePriorityDate/TimeAssociated DiagnosisCommentsPOCT URINALYSIS WPFOZJHLUnavjmw24/20/2025 10:04 AM EDT 35 weeks gestation of ([facility]) Third trimester ([facility]) Gestational diabetes mellitus (GDM), antepartum, gestational diabetes method of control unspecified([facility]) documented in this encounter Results * (ABNORMAL) [...] Location / LateralityCollection Method / VolumeCollection TimeReceived WivcKdxjp53/20/2025 10:04 AM EDT Narrative Authorizing ProviderResult TypeResult StatusCorereba Anderson DOPOINT OF CARE TEST ENTER/EDIT ORDERABLESFinal Result documented in this encounter Visit Diagnoses Diagnosis 35 weeks gestation of ([facility]) Third trimester ([facility]) state, incidental Gestational diabetes mellitus (GDM), antepartum, gestational diabetes method of control unspecified([facility]) Chronic hypertension H/O miscarriage, currently ([facility]) UTI symptoms Palpitations Heartburn during , antepartum ([facility]) documented in this encounter
--- NOTE | 2025-06-29 | US_ITS ---
[address] [address] Patient Name: NATALIE CESPEDES MRN: [id number] date: 1985 Sex: F Assigned Patient Location: [facility] Current Patient Location: Accession/Order Number: [id number] Exam Date: 06/29/2025 09:25 Report Date: 06/29/2025 14:03 At the request of: CANDICE OCHOA DO Procedure: US OB BPP w non-stress BIOPHYSICAL PROFILE: CLINICAL INFORMATION: CHRONIC HYPERTENSION I10 COMPARISON: 06/14/2025 OB growth There is a single live intrauterine gestation in cephalic presentation. The gestational age is 35 weeks 5 days. The heart rate measures 132 beats per minute. Incidental note is made of moderate urinary bladder distention. FINDINGS: TONE: 1 or more episodes of activity extension and flexion of extremity or opening and closing of the hand [Y] 2/2 GROSS BODY MOVEMENTS: 3 or more discrete body or limb movements [Y] 2/2 BREATHING MOVEMENTS: 1 or more episodes of breathing lasting at least 30 seconds [Y] 2/2 MERCEDES: A single deepest vertical pocket of amniotic fluid greater than 2 cm [Y] 2/2 MERCEDES: 21.2 cm. The 95th percentile is 24.9 cm. Total score: 8/8 US/US OB BPP w non-stress IMPRESSION: NORMAL BIOPHYSICAL PROFILE DISTENDED URINARY BLADDER. Impression dictated by: Joan Womack M.D. 06/29/2025 2:03 PM Dictation Location: [place] [address] Electronically authenticated by: [id number] Y Date: 06/29/2025 14:03
--- OUTSIDE RECORDS SUMMARY | 2025-06-29 09:22 | XMS_ITS | Clinical Summary ---
Author Organization [facility] Address [address], [address] [place] [address] Care Team Providers Care Sap Grc Security Name Role Phone Unavailable Primary Care Provider Unavailabl e Allergies Active AllergyReactionsCriticalityNoted DateCommentsSulfa AntibioticsSwelling 03/30/2016 Medications MedicationSigDispense QuantityRefillsLast FilledStart DateEnd DateStatus Multiple Vitamins-Minerals (THERAPEUTIC MULTIVITAMIN-MINERALS) tablet Take 1 tablet by mouth dailyActive Phentermine HCl 30 MG TBDP Take 1 tablet by mouth dailyActive Family History Medical HistoryRelationNameCommentsHeart DiseaseFatherKidney DiseaseFather RelationNameStatusCommentsFatherDeceasedMotherAlive Social History Tobacco UseTypesPacks/DayYears UsedDateSmoking Tobacco: NeverAlcohol UseStandard Drinks/WeekCommentsYes0 (1 standard drink = 0.6 oz pure alcohol)very occasional CommentsUnknownSex and Gender InformationValueDate RecordedSex Assigned at BirthNot on fileLegal ZaxSpbnxz91/21/2015 4:35 PM EDTGender IdentityNot on fileSexual OrientationNot on file Last Filed Vital Signs Vital SignReadingTime TakenCommentsBlood Dlxceygh315/8703/30/2016 3:03 PM EDT Rxdqb28781/22/2016 3:03 PM VHSUxqqhieexgz69.7 ??C (98.1 ??F)03/30/2016 3:03 PM EDTRespiratory Amry785903/30/2016 3:03 PM EDTOxygen Tlrweyuvmo45%03/30/2016 3:03 PM EDTInhaled Oxygen Concentration--Fimuuj08.4 kg (186 lb)03/30/2016 3:03 PM EDT Xphhti023.6 cm (5' 4 )03/30/2016 3:03 PM EDTBody Mass Index31.9303/30/2016 3:03 PM EDT Plan of Treatment Not on file
--- OUTSIDE RECORDS SUMMARY | 2025-06-29 09:22 | XMS_ITS | Encounter Summary ---
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 Role Phone Unavailable Primary Care Provider Unavailabl e Encounter Details DateTypeDepartmentCare Team (Latest Contact Info)Xmzhauldvwb71/09/2025bstract HAL MESSINA [address] [place] [address] Greg Anderson DO [facility] [address] [place], [place] [address] Social History Tobacco UseTypesPacks/DayYears UsedDateSmoking Tobacco: Never Assessed Estimated Date of VrutxzjeCkrysdueUmu49/20/2025Based on UltrasoundSex and Gender InformationValueDate RecordedSex Assigned at LzybsYakdxb59/21/2025 1:58 PM EST Legal WdqWldczo98/15/2023 6:58 PM EDTGender RbtjpovqEarykd52/21/2025 1:58 PM EST Sexual JlfmelefenpSyjnpbqz20/21/2025 1:58 PM ESTdocumented as of this encounter Plan of Treatment DateTypeDepartmentCare Team (Latest Contact Info)Clyoyhjhtyt63/27/2025 1:30 PM EDTRoutine N[facility]ESSINA [address] [place] [address] Greg Anderson, DO [address] [place], [facility] documented as of this encounter Visit Diagnoses Not on filedocumented in this encounter
--- OUTSIDE RECORDS SUMMARY | 2025-06-29 09:22 | XMS_ITS | Clinical Summary ---
Author Organization [facility] Healthcare Address [address] [facility] [place] [address] Care Team Providers Care Jigmaker Name Role Phone Unavailable Primary Care Provider Unavailabl e Allergies Active AllergyReactionsCriticalityNoted DateCommentsSulfa AntibioticsSwelling High03/30/2016 Other Reaction(s): Swelling of throat Sulfamethoxazole-SzwffzxjvelsIlsshch34/11/2024 Medications MedicationSigDispense QuantityRefillsLast FilledStart DateEnd DateStatus venlafaxine XR (Effexor XR) 150 MG 24 hr capsule Take 150 mg by mouth Daily04/14/2024ctive omeprazole (PriLOSEC) [address] capsule PLEASE SEE ATTACHED FOR DETAILED CNWCCQFJPQ95/02/2025Active labetalol (Normodyne) 200 MG tablet Indications:Elevated blood pressure readingTake 1 tablet (200 mg) by mouth in the morning and 1 tablet (200 mg) in the evening and 1 tablet (200 mg) before bedtime. 90 tablet 1104/170688/6Active MV-Min-Fe Fum-FA-DHA ( 1 PO) Take by mouthActive aspirin 81 MG EC tablet Take 81 mg by mouth DailyActive Alcohol Swabs (Alcohol Prep Pad) 70 % pads Indications:Gestational diabetes mellitus (GDM), antepartum, gestational diabetes method of control unspecified([facility]),Elevated glucose tolerance test Apply 1 Pad topically Daily Use four times daily to check FSBS. 150 each 5Active Blood Glucose Monitoring Suppl ([employer] Blood Glucose Meter) device Indications:Gestational diabetes mellitus (GDM), antepartum, gestational diabetes method of control unspecified(HHS-HCC),Elevated glucose tolerance test1 kit in the morning and 1 kit at noon and 1 kit in the evening and 1 kit before bedtime. 1 each 5Active cephalexin (Keflex) 500 MG capsule Take 500 mg by mouth in the morning and 500 mg at noon and 500 mg in the evening and 500 mg before bedtime.5Active HYDROmorphone (Dilaudid) 2 MG tablet Take 2 mg by mouth every 6 (six) hours if [id number] phenazopyridine (Pyridium) 100 MG tablet Indications:Urinary tract infection without hematuria, site unspecifiedTake 1 tablet (100 mg) by mouth 3 (three) times a day as needed for bladder spasms for up to 9 doses 9 tablet 5Active Additional Information Patient not taking.Reported on 06/14/2025 metoclopramide (Reglan) 10 MG tablet Indications:Heartburn during , antepartum ([facility])Take 1 tablet (10 mg) by mouth in the morning and 1 tablet (10 mg) at noon and 1 tablet (10 mg) in the evening. Take before meals. Take 1 tablet by mouth 30 minutes prior to meals 3 times daily as needed for nausea. 90 tablet 515Active pantoprazole (Protonix) 40 MG EC tablet Indications:Heartburn during , antepartum ([facility])Take 1 tablet (40 mg) by mouth in the morning. Take before meals. Do not crush, chew, or split. 30 tablet 111516Active Active Problems Estimated Date of CuisqaqbOlrwqwzsPjl18/20/2025Based on Ultrasound No known active problems Encounters DateTypeDepartmentCare AzwjQbcqixiwtxu28/20/2025 9:40 AM EDTRoutine NOM[facility] Sree OBPAULO [address] [place] [address] [place] [address] Candice Anderson, 35 weeks gestation of ([facility]); Third trimester ([facility]); Gestational diabetes mellitus (GDM), antepartum, gestational diabetes method of control unspecified([facility]); Chronic hypertension; H/O miscarriage, currently ([facility]); UTI symptoms; Palpitations; Heartburn during , antepartum ([facility])06/28/2025amboo flowsheet [facility] [address] [facility] [place] [address] Candice Anderson, 06/17/2025bstract [facility] [address] [facility] [place] [address] Candice Anderson, DO 06/14/2025 11:50 AM EDTRoutine [facility] [address] [facility] [address] Suzanne Valdivia NP 33 weeks gestation of ([facility]); Third trimester ([facility]); Gestational diabetes mellitus (GDM), antepartum, gestational diabetes method of control unspecified([facility])06/14/2025linisync Result Encounter NOMS External Department Unsolicited Krupa Olmstead PA 06/14/2025amboo flowsheet [facility] [address] [facility] [place] [address] Suzanne Valdivia NP 05/27/2025 8:50 AM EDTRoutine [facility] [address] [facility] [place] [address] Krupa Olmstead PA Size of fetus inconsistent with dates, antepartum ([facility]) (Primary Dx); Third trimester ([facility]); 31 weeks gestation of ([facility])05/27/2025amboo flowsheet [facility] [address] [facility] [place] [address] Krupa Olmstead PA 05/20/2025bstract [facility] [address] [facility] [place] [phone] Candice Anderson, 05/13/2025 8:30 AM EDTRoutine N[facility]IC[facility] [address] [facility] [address] Candice Anderson, DO 29 weeks gestation of ([facility]); Third trimester ([facility]); Gestational diabetes mellitus (GDM), antepartum, gestational diabetes method of control unspecified([facility]); Urinary tract infection without hematuria, site pqjgwesnaqp94/04/2025amboo flowsheet [facility] [address] [facility] [place] [address] Candice Anderson, DO 05/11/2025External Result Encounter NOMS External Department Unsolicited Shaun Rebollar MD 05/10/2025External Result Encounter NOMS External Department Unsolicited Shaun Rebollar MD 05/10/2025External Result Encounter NOMS External Department Unsolicited Shaun Rebollar MD 05/10/2025External Result Encounter NOMS External Department Unsolicited Shaun Rebollar MD 05/10/2025External Result Encounter NOMS External Department Unsolicited Shaun Rebollar MD 05/10/2025External Result Encounter NOMS External Department Unsolicited Shaun Rebollar MD 05/04/2025bstract [facility] [address] [place] [phone] Candice Anderson, DO 05/04/2025Telephone [facility] [address] [place] [address] Candice Anderson, DO 04/28/2025 1:00 PM EDTRoutine [facility] [address] [place] [phone] Krupa Olmstead PA 26 weeks gestation of ([facility]); Second trimester ([facility]); Urinary tract infection with hematuria, site unspecified; Yeast dzdhxjrym62/20/2025amboo flowsheet [facility] [address] [place] [phone] Krupa Olmstead PA 04/23/2025bstract [facility] [address] [place] [address] Candice Anderson, 04/21/20256245Dfqgzk28/07/2025linisync Result Encounter NOMS External Department Unsolicited Candice Anderson, 04/15/2025linisync Result Encounter NOMS External Department Unsolicited Candice Anderson, 04/15/2025linisync Result Encounter NOMS External Department Unsolicited Candice Anderson, 04/15/2025Telephone [facility] [address] [place] [address] Hina Moura MA 03/30/2025 11:20 AM EDTRoutine [facility] MESSINA [address] [place] [address] Candice Anderson, 22 weeks gestation of ([facility]); Second trimester ([facility]); Gestational diabetes mellitus (GDM), antepartum, gestational diabetes method of control unspecified([facility])03/30/2025amboo flowsheet [facility] M[facility] [address] [place] [address] Candice Anderson, from Last 3 Months Social History Tobacco UseTypesPacks/DayYears UsedDateSmoking Tobacco: Never Assessed Estimated Date of ZucskdkyKoomdpznGuy08/20/2025ased on UltrasoundSex and Gender InformationValueDate RecordedSex Assigned at HfwbeJrzwfv05/21/2025 1:58 PM EST Legal UvyNcoquq69/15/2023 6:58 PM EDTGender KgwzoqtdGsfagu19/21/2025 1:58 PM EST Sexual NuefmbcdtfkOzgqierw12/21/2025 1:58 PM EST Last Filed Vital Signs Vital SignReadingTime TakenCommentsBlood Itviqpod408/801 9:58 AM EDT Pulse--Temperature--Respiratory Rate--Oxygen Saturation--Inhaled Oxygen Concentration--Vjnmps802 kg (269 lb)06/28/2025 9:58 AM EDTHeight--Body Mass Index-- Plan of Treatment DateTypeDepartmentCare Team (Latest Contact Info)Ldripncjuvv06/27/2025 1:30 PM EDTRoutine [facility] [address] [facility] [place] [phone] Candice Anderson, [address] [place] [address] Health MaintenanceDue DateLast DoneCommentsHPV/Vwcwpi3203/01/2017Influenza Vaccine (#1), 05/23/2021ervical Cancer Zrugcywyp99/03/2028Pap Smear Procedures Procedure NamePriorityDate/TimeAssociated DiagnosisCommentsPOCT URINALYSIS WPQTWJDDAqoewxy19/20/2025 10:04 AM EDT 35 weeks gestation of ([facility]) Third trimester ([facility]) Gestational diabetes mellitus (GDM), antepartum, gestational diabetes method of control unspecified([facility]) US OB HMEBBJ2706/14/2025 12:01 PM EDT POCT URINALYSIS QSVIUHXHJfeoeuh49/06/2025 11:49 AM EDT 33 weeks gestation of ([facility]) Third trimester ([facility]) POCT URINALYSIS TBGILVKGFxjvllb25/18/2025 8:58 AM EDT Third trimester ([facility]) POCT URINALYSIS RNFXDCURXrhvdop70/04/2025 8:42 AM EDT 29 weeks gestation of ([facility]) Third trimester ([facility]) US RENAL FIYRRCOI65/02/2025 12:52 PM EDT QTWRWBUKYI86/01/2025 11:10 PM EDT WPBGNSXOGNI13/01/2025 11:10 PM EDT COMPREHENSIVE METABOLIC JRPMQKMJF77/01/2025 11:10 PM EDT CBC WITH AUTO QUAMLTBMMARTJOBK37/01/2025 11:10 PM EDT BZGMDYXFVJFSWZJ53/01/2025 11:05 PM EDT AEROBIC DAVE CHARGE (NMIC56)STAT05/10/2025 10:30 PM EDT URINALYSIS DGMFIZGPCN06/01/2025 10:30 PM EDT CULTURE, URINE, LOVXWIYGFHF87/01/2025 10:30 PM EDT URINARY TRACT INFECTION (HTRX)Rfvzgbb9004/28/2025 1:20 PM EDT POCT URINALYSIS PFJCWLPULfirvbg39/20/2025 1:15 PM EDT 26 weeks gestation of ([facility]) Second trimester ([facility]) US OB QCXTMNGW90/07/2025 4:27 PM EDT US OB CERVICAL UPQTPC2604/15/2025 4:27 PM EDT [facility] URINE MICROSCOPIC AORHFlxjfic72/07/2025 2:55 PM EDT [facility] UA (CLEAN/CATCH) FOOD QUALITY TECHNICIAN/MICRO IF IND.Xpwmnvm3404/15/2025 2:55 PM EDT POCT URINALYSIS YIEMKQMNFgibjne96/22/2025 11:36 AM EDT 22 weeks gestation of ([facility]) Second trimester ([facility]) PAP WXIGHLtidsco98/03/2025 12:00 AM EDTfrom Last 3 Months or Most Recently Relevant to Health Maintenance Results * (ABNORMAL) POCT urinalysis dipstick manually resulted (06/28/2025 10:04 AM EDT) Only the most recent of6 resultswithin the time period is included. ComponentValueRef RangeTest MethodAnalysis TimePerformed AtPathologist Signature Color, UAAmberClarity, UAClearGlucose, UANegativeNegative - 2000(110) ++++ mg/dL Bilirubin, UAPositiveNegative - 4(70) +++ mg/dLComment:1+Ketones, UAPositive Negative - 160(16) ++++ mg/dLComment:+Spec Grav, UA1.0301 - 1.03Blood, UA NegativeNegative - 50 Javi/mcLpH, UA6.05 - 9Protein, UAPositiveNegative - 2000(20) ++++ mg/dLComment:1+Urobilinogen, UA1.00.2 - 12 mg/dLLeukocytes, UA PositiveNegative - 500+++ Tomas/mcLComment:2+Nitrite, UAPositiveNegative - PositiveSpecimen (Source)Anatomical Location / LateralityCollection Method / VolumeCollection TimeReceived YjkqCrlqj33/20/2025 10:04 AM EDT Narrative Authorizing ProviderResult TypeResult StatusCorey Justin DOPOINT OF CARE TEST ENTER/EDIT ORDERABLESFinal Result * US OB GROWTH (06/14/2025 12:01 PM EDT)Anatomical RegionLateralityModalityOther Specimen (Source)Anatomical Location / LateralityCollection Method / Volume Collection TimeReceived Time06/14/2025 12:01 PM EDT Narrative 06/14/2025 12:04 PM EDT [facility] ?[address] ? [place] [address] ? Ultrasound Report ? Signed ? Patient: NATALIE CESPEDES S ?MR#: [id number] ?? : 1985 ?Acct:[id number] ?? Age/Sex: 40 / F ?ADM Date: 06/14/25 ?? Loc: US ? Attending Dr: Krupa Olmstead ? Ordering Physician: Krupa Olmstead ?? Date of Service: 06/14/25 ?? Procedure(s): US OB growth ?? Accession Number(s): [id number] ? cc: Krupa Olmstead; Lynn Jose D.O. ? [facility] ? [address] ? [place] [address] ? Patient Name: ?? NATALIE CESPEDES ? MRN: [facility]:[id number] ? date: 1985 ?Sex: F ?? Assigned Patient Location: ?? Current Patient Location: US ?? Accession/Order Number: [id number] ?? Exam Date: 06/14/2025 ??10:58 ?Report Date: 06/14/2025 ??12:01 ? At the request of: ?? KRUPA ??ISHAN ? Procedure: ??US OB growth ? Growth ultrasound. ? Reason for exam: Size effusion consistent with dates. ? COMPARISON: Ultrasound 04/15/2025. ? FINDINGS: Single live intrauterine measuring 32 weeks 6 days by ?? anatomic measurements. ??Estimated weight is 2061 g. ?? heart rate 1 ?? 41 bpm. ??MERCEDES is 20.30 cm. ?? position is cephalic at time of scanning. ? US/US OB growth ?? IMPRESSION: Single live intrauterine 32 weeks 6 days by anatomic ?? measurements. ??Appropriate growth by dating. ? Impression dictated by: Jacob Almanza Jr., DMariama ??06/14/2025 12:01 PM ? Dictation Location: [place] [address] ? Electronically authenticated by: [id number] ??Y ?? Date: 06/14/2025 ??12:01 ? Dictated By: ?Jacob Almanza M.D. ? Signed By: ?06/14/25 1204 ? DD/ 1201 ? TD/TT: ? Gate Clerk: Procedure Note Radiology, Radiologist, - 06/14/[address] [address] Ultrasound Report Signed Patient: NATALIE CESPEDES [facility]#: [id number] : 1985Acct:[id number] Age/Sex: 40 / FADM Date: 06/14/25 Loc: US Attending Dr: Krupa Olmstead Ordering Physician: Krupa Olmstead Date of Service: 06/14/25 Procedure(s): US OB growth Accession Number(s): [id number] cc: Krupa Olmstead; Lynn Jose D.O. The [address] [address] Patient Name: NATALIE CESPEDES MRN: [facility]:[id number] date: 1985 Sex: F Assigned Patient Location: US Current Patient Location: US Accession/Order Number: [id number] Exam Date: 06/14/2025 10:58 Report Date: 06/14/2025 12:01 At the request of: KRUPA OLMSTEAD Procedure: US OB growth Growth ultrasound. Reason for exam: Size effusion consistent with dates. COMPARISON: Ultrasound 04/15/2025. FINDINGS: Single live intrauterine measuring 32 weeks 6 days by anatomic measurements. Estimated weight is 2061 g. heartrate 1 41 bpm. MERCEDES is 20.30 cm. position is cephalic at time of scanning. US/US OB growth IMPRESSION: Single live intrauterine 32 weeks 6 days by anatomic measurements. Appropriate growth by dating. Impression dictated by: Jacob Almanza Jr. DDamionODamion 06/14/2025 12:01 PM Dictation Location: [facility]--22 Electronically authenticated by: [id number] Y Date: 2:01 Dictated By: Jacob Almanza M.D. Signed By:06/14/25 1204 DD/ 1201 TD/TT: Gate Clerk: Authorizing ProviderResult TypeResult StatusKrupa Olmstead [facility] IMAGINGFinal Result * US renal complete (05/11/2025 12:52 PM EDT)Anatomical RegionLateralityModality KidneyUltrasoundSpecimen (Source)Anatomical Location / LateralityCollection Method / VolumeCollection TimeReceived Time05/11/2025 12:52 PM EDT Impressions 05/11/2025 12:55 PM EDT There is mild hydronephrosis. ? Bilateral ureteral jets are noted. ? Impression dictated by: Deshaun Alanis M.D. ??05/11/2025 12:52 PM ? Dictation Location: [facility]-24 ? Tech: Chantell Blake ? Transcribed By: ? PWS ?05/11/25 1252 ? Dictated By: ?Deshaun Cantu Zeke, II, MD ?05/11/25 1252 ? Signed By: <Electronically signed by Deshaun Cantu Zeke, II, MD in OV> ? 05/11/25 1252 Narrative 05/11/2025 12:55 PM EDT [facility] ?[facility] ?[address] ? [place] [address] ? Ultrasound Report ? Signed ? Patient: Natalie Cespedes S ?MR#: [id number] ?? [id number] ? : 1985 ?Acct:[id number] ? Age/Sex: 40 / F ?ADM Date: 05/10/25 ? Loc: 3E ?Room: ??3P9201-5 ?Type: REG CLI ?? Attending Dr: Shaun Rebollar MD ? Ordering Provider: SHAUN REBOLLAR MD ?? Date of Service: 05/11/25 ?? US/US renal BI: Pyelonephritis ? Copies to: SHAUN REBOLLAR MD ? US renal BI ??05/11/2025 12:05 PM ? SIGNS AND SYMPTOMS: ?? Pyelonephritis ?? Renal with jets ? COMPARISON: None. ? FINDINGS: ? Right kidney measures 11.19 cm x 6.36 cm x 5.48 cm . There is mild right-sided hydronephrosis. ??No evidence of mass. ? Left kidney measures 10.67 cm x 4.93 cm x 5.04 cm . No mass or hydronephrosis. ? The urinary bladder is morphologically normal. ??Bilateral ureteral jets are visualized. ??No free fluid is seen in the pelvis. ? Before voiding, the bladder measures 2.82 cm x 5.89 cm x 7.81 cm , which corresponds to an estimated volume of 67.92 mL ?? . ? US/US renal BI ?? Procedure Note Deshaun Alanis MD - 05/11/2025 [facility] [place] [address] Ultrasound Report Signed Patient: Natalie Cespedes SMR#: [id number] : 1985Acct:[id number] Age/Sex: 40 / FADM Date: 05/10/25 Loc: Room: 8L7242-9Nhro: REG CLI Attending Dr: Shaun Rebollar MD [...] Alanis M.D. 05/11/2025 12:52 PM Dictation Location: [place] [address] Tech: Chantell Blake Transcribed By: LAURA 05/11/25 1252 Dictated By: Deshaun Alanis II, MD 05/11/25 1252 Signed By: <Electronically signed by Deshaun Alanis II, MD inOV> 05/11/25 1252 Authorizing ProviderResult TypeResult StatusShaun Rebollar MDIMThierry US PROCEDURES Final Result * (ABNORMAL) CBC auto differential (05/10/2025 11:10 PM EDT)ComponentValueRef RangeTest MethodAnalysis TimePerformed AtPathologist FaxjrtilzESL19.3(H)3.8 - 11.6 [CFU]/mL05/10/2025 11:25 PM [facility] CtrUNCORRECTED WHITE BLOOD COUNT19.3(H)3.8 - 11.6 10*3/uL05/10/2025 11:25 PM [facility] CtrRBC4.053.60 - 5.00 10*6/uL05/10/2025 11:25 PM [facility] GfyPAOFAIQQHS74.3(L)11.8 - 15.4 g/dL05/10/2025 11:25 PM EDT [facility] YdyDYPPCULSTR24.0(L)34.0 - 46.4 %05/10/2025 11:25 PM [facility] DfoXUH19.480 - 100 fL05/10/2025 11:25 PM EDT [facility] OhmKMO00.924.7 - 34.3 pg05/10/2025 11:25 PM EDT [facility] DhuCICO81.232.0 - 35.0 g/dL05/10/2025 11:25 PM EDT [facility] CtrRED CELL DISTRIBUTION WIDTH, RDW14.611.9 - 15.3 %05/10/2025 11:25 PM [facility] CtrPLATELET ABMJC720269 - 450 10*3/uL05/10/2025 11:25 PM [facility] CtrMEAN PLATELET VOLUME, MPV7.36.3 - 10.7 fL09/09/2024 11:25 PM [facility] CtrNEUTROPHILS, %91.2. %05/10/2025 11:25 PM [facility] LYMPHOCYTES, %4.8. %05/10/2025 11:25 PM [facility] MONOCYTE/MACROPHAGE, %3.2. %05/10/2025 11:25 PM [facility] CtrEOSINOPHILS, %0.4. %05/10/2025 11:25 PM [facility] BASOPHILS, %0.4. %05/10/2025 11:25 PM [facility] CtrNRBC0.1 0 - 0.5 /100{WBC}05/10/2025 11:25 PM [facility] EACZVKVPUGM29.6(H)1.8 - 7.7 10*3/uL05/10/2025 11:25 PM [facility] CtrLYMPHOCYTES0.9(L)1.00 - 4.8 10*3/uL05/10/2025 11:25 PM [facility] CtrMONOCYTES0.60.0 - 0.8 10*3/uL05/10/2025 11:25 PM EDT [facility] CtrEOSINOPHILS0.10.0 - 0.45 10*3/uL05/10/2025 11:25 PM [facility] CtrBASOPHILS0.10.0 - 0.2 10*3/uL05/10/2025 11:25 PM [facility] CtrSpecimen (Source)Anatomical Location / LateralityCollection Method / VolumeCollection TimeReceived TimeBlood (Blood)05/10/2025 11:10 PM EDT05/10/2025 11:18 PM EDT Narrative Authorizing ProviderResult TypeResult StatusBrcris Rebollar MDLAB BLOOD ORDERABLESFinal ResultPerforming OrganizationAddressCity/State/ZIP CodePhone Number [facility] [address] [place] [address], [facility] [address] [place] [address] * Lipase (05/10/2025 11:10 PM EDT)ComponentValueRef RangeTest MethodAnalysis TimePerformed AtPathologist RqfsinvzaMOOYPO83.011.0 - 82.0 U/L05/10/2025 11:45 PM [facility] CtrSpecimen (Source)Anatomical Location / LateralityCollection Method / VolumeCollection TimeReceived TimeOther Topography unknown / Jrkdruj3305/10/2025 11:10 PM EDT05/10/2025 11:18 PM EDT Narrative Authorizing ProviderResult TypeResult StatusShaun MONTILLA BLOOD ORDERABLESFinal ResultPerforming OrganizationAddressCity/State/ZIP CodePhone Number [facility] [address] [place] [address], [facility] [address] [place] [address] * Amylase (05/10/2025 11:10 PM EDT)ComponentValueRef RangeTest MethodAnalysis TimePerformed AtPathologist HpqtbmwonSGDSTIW9892 - 103 U/L05/10/2025 11:45 PM [facility] CtrSpecimen (Source)Anatomical Location / LateralityCollection Method / VolumeCollection TimeReceived TimeOther Topography unknown / Zxtzhrz1605/10/2025 11:10 PM EDT05/10/2025 11:18 PM EDT Narrative Authorizing ProviderResult TypeResult StatusShaun MONTILLA BLOOD ORDERABLESFinal ResultPerforming OrganizationAddressCity/State/ZIP CodePhone Number [facility] [address] [place] [address], [facility] [address] [place] [address] * (ABNORMAL) Comprehensive metabolic panel (05/10/2025 11:10 PM EDT)Component ValueRef RangeTest MethodAnalysis TimePerformed AtPathologist SignatureGlucose 111(H)70 - 100 mg/dL05/10/2025 11:45 PM [facility] Comment: Random Glucose Reference Range is dependent on time and content of last meal. Glucose of more than 200 mg/dL in a nonstressed, ambulatory subject supports the diagnosis of Diabetes Mellitus. ADA recommended reference range QGZ292 - 25 mg/dL05/10/2025 11:45 PM [facility] CtrCREATININE 0.680.60 - 1.20 mg/dL05/10/2025 11:45 PM [facility] ESTIMATED GFR>60. 11:45 PM [facility] TlzMejczg973 136 - 145 mmol/L05/10/2025 11:45 PM [facility] CtrPotassium, Bld3.93.5 - 5.1 mmol/L05/10/2025 11:45 PM [facility] Uwignpce25796 - 107 mmol/L05/10/2025 11:45 PM [facility] Carbon Yvelgqn66.3(L)21.0 - 31.0 mmol/L05/10/2025 11:45 PM [facility] CtrAnion Gap14.66.0 - 15.009 11:45 PM [facility] CtrCalcium9.18.6 - 10.3 mg/dL05/10/2025 11:45 PM [facility] CtrTOTAL PROTEIN6.3(L)6.4 - 8.9 g/dL05/10/2025 11:45 PM [facility] CtrALBUMIN LEVEL3.63.5 - 5.7 g/dL05/10/2025 11:45 PM [facility] CtrGLOBULIN2.7g/dL05/10/2025 11:45 PM [facility] CtrALBUMIN/GLOBULIN RATIO1.309 11:45 PM [facility] CtrBILIRUBIN,TOTAL0.40.3 - 1.0 mg/dL05/10/2025 11:45 PM [facility] CtrASPARTATE AMINO OETUCQGQQRT7473 - 39 U/L05/10/2025 11:45 PM [facility] CtrALANINE LPQAXRKMGYKHFJQN506 - 52 U/L 05/10/2025 11:45 PM [facility] CtrALKALINE VKLXAAIAFTR5345 - 104 U/L05/10/2025 11:45 PM [facility] CtrCREATININE CLR CALC WSRONXRW648.8705/10/2025 11:45 PM [facility] CtrSpecimen (Source)Anatomical Location / LateralityCollection Method / VolumeCollection TimeReceived TimeOtherTopography unknown / Nneuavh4305/10/2025 11:10 PM EDT 05/10/2025 11:18 PM EDT Narrative Authorizing ProviderResult TypeResult StatusShaun Rebollar MDLAB BLOOD ORDERABLESFinal ResultPerforming OrganizationAddressCity/State/ZIP CodePhone Number [facility] [address] [place] [address], [facility] [address] [place] [address] * fibronectin (05/10/2025 11:05 PM EDT)ComponentValueRef RangeTest Method Analysis TimePerformed AtPathologist SignatureFETAL FIBRONECTINNegative Mneyxaxx95/02/2025 12:02 AM [facility] CtrSpecimen (Source) Anatomical Location / LateralityCollection Method / VolumeCollection Time Received TimeOtherTopography unknown / Wylsnft5405/10/2025 11:05 PM EDT 05/10/2025 11:19 PM EDT Narrative [facility] - 05/11/2025 12:02 AM EDT Comment patients 22 - 34 6/7 weeks prior to vaginal exam Authorizing ProviderResult TypeResult StatusShaun Rebollar MDLAB BODY FLUIDS AND STOOLS ORDERABLESFinal ResultPerforming OrganizationAddressCity/State/ZIP Code Phone Number [facility] [address] [facility] [place] [address], [facility] [address] [place] [address] * (ABNORMAL) AEROBIC DAVE CHARGE ([id number]) (05/10/2025 10:30 PM EDT)ComponentValue Ref RangeTest MethodAnalysis TimePerformed AtPathologist SignatureAMIKACIN<16 (S)05/13/2025 7:51 AM [facility] CtrAMOXACILLIN/K CLAVULANATE<8/4(S)05/13/2025 7:51 AM [facility] AMPICILLIN>16(R)05/13/2025 7:51 AM [facility] AMPICILLIN/VHZBGVVAV65/8(I)05/13/2025 7:51 AM [facility] CtrAZTREONAM<4(S)05/13/2025 7:51 AM [facility] CtrCEFAZOLIN <2(S)05/13/2025 7:51 AM [facility] CtrCEFEPIME<2(S) 05/13/2025 7:51 AM [facility] CtrCEFTAZIDIME<1(S)05/13/2025 7:51 AM [facility] CtrCEFTAZIDIME/AVIBACTAM<4(S)05/13/2025 7:51 AM [facility] CtrCEFTOLOZANE/TAZOBACTAM<2(S) 05/13/2025 7:51 AM [facility] CtrCEFTRIAXONE<1(S)05/13/2025 7:51 AM [facility] CtrCEFUROXIME<4(S)05/13/2025 7:51 AM [facility] CtrCIPROFLOXACIN<0.25(S)05/13/2025 7:51 AM [facility] CtrERTAPENEM<0.5(S)05/13/2025 7:51 AM [facility] CtrGENTAMICIN<2(S)05/13/2025 7:51 AM [facility] CtrLEVOFLOXACIN<0.5(S)05/13/2025 7:51 AM [facility] CtrMEROPENEM<1(S)05/13/2025 7:51 AM [facility] MEROPENEM/VABORBACTAM<2(S)05/13/2025 7:51 AM [facility] NITROFURANTOIN<32(S)05/13/2025 7:51 AM [facility] PIPERACILLIN/TAZOBACTAM<8(S)05/13/2025 7:51 AM [facility] CtrTETRACYCLINE<4(S)05/13/2025 7:51 AM [facility] TIGECYCLINE<2(S)05/13/2025 7:51 AM [facility] CtrTOBRAMYCIN <2(S)05/13/2025 7:51 AM [facility] TRIMETHOPRIM/SULFAMETHOXAZOLE<0.5/9.5(S)05/13/2025 7:51 AM [facility] CtrSpecimen (Source)Anatomical Location / Laterality Collection Method / VolumeCollection TimeReceived TimeUrineUrine specimen obtained by clean catch procedure / Qrkeovg3905/10/2025 10:30 PM EDT05/10/2025 10:55 PM EDTComment:Clean-Voided Midstream Narrative Authorizing ProviderResult TypeResult StatusShaun Rebollar MDFIRELANDSFinal ResultPerforming OrganizationAddressCity/State/ZIP CodePhone Number [facility] [address] [place] [address], [facility] [address] [place] [address] * (ABNORMAL) Urinalysis with reflex microscopic (05/10/2025 10:30 PM EDT) ComponentValueRef RangeTest MethodAnalysis TimePerformed AtPathologist SignatureCOLOR,IPLELBpaytcEbnwpl32/01/2025 10:59 PM [facility] CtrAPPEARANCE,URINETurbid(AA)Clear05/10/2025 10:59 PM [facility] CtrSPECIFICY GRAVITY,URINE1.0221.001 - 1.8435205/10/2025 10:59 PM [facility] CtrPH,URINE5.55.0 - 9.009 10:59 PM [facility] CtrLEUKOCYTE ESTERASE,URINE4+Zpnsbovt62/01/2025 10:59 PM [facility] CtrNITRITE,URINENegativeNegative 05/10/2025 10:59 PM [facility] CtrPROTEIN,DKSTZ608Tzrnaune mg/dL05/10/2025 10:59 PM [facility] CtrGLUCOSE,URINE (UA) NormalNormal mg/dL05/10/2025 10:59 PM [facility] KETONES,URINE2+Xlnredhs55/01/2025 10:59 PM [facility] UROBILINOGEN,URINENormalNormal mg/dL05/10/2025 10:59 PM [facility] CtrBILIRUBIN,FVUJSXswgppnvIvqvjwqd98/01/2025 10:59 PM [facility] CtrOCCULT BLOOD,URINE2+Pehnmbgf07/01/2025 10:59 PM EDT [facility] CtrRBC,GDRWD62-559 - 4 [HPF]05/10/2025 11:13 PM EDT [facility] CtrWBC,URINEInnumerable0 - 4 [HPF]05/10/2025 11:13 PM [facility] CtrWBC CLUMP, URINEManyNone Seen [LPF] 05/10/2025 11:13 PM [facility] CtrSQUAMOUS EPITHELIAL CELL,URINE1-20 - 2 [HPF]05/10/2025 11:13 PM [facility] BACTERIA,URINE2+None Seen [HPF]05/10/2025 11:13 PM [facility] CtrHYALINE CASTS,URINENone0 - 8 [LPF]05/10/2025 11:13 PM [facility] CtrMUCUS,URINE4+(AA)[LPF]05/10/2025 11:13 PM [facility] CtrSpecimen (Source)Anatomical Location / Laterality Collection Method / VolumeCollection TimeReceived RnhvDrscf02/01/2025 10:30 PM EDT05/10/2025 10:55 PM EDT Narrative [facility] - 05/10/2025 11:13 PM EDT Comment c/o urinary symptoms or increased blood pressure Name Collection Type:: Clean-Voided Midstream Authorizing ProviderResult TypeResult StatusShaun MONTILLA URINE ORDERABLESFinal ResultPerforming OrganizationAddressCity/State/ZIP CodePhone Number [facility] [address] [place] [address], [facility] [address] [place] [address] * Urine culture (05/10/2025 10:30 PM EDT)ComponentValueRef RangeTest Method Analysis TimePerformed AtPathologist SignatureFRMC ORGANISMEscherichia coli 05/13/2025 7:51 AM [facility] CtrCOLONY COUNT>100,000 05/13/2025 7:51 AM [facility] CtrSpecimen (Source) Anatomical Location / LateralityCollection Method / VolumeCollection Time Received TimeUrineUrine specimen obtained by clean catch procedure / Unknown 05/10/2025 10:30 PM EDT05/10/2025 10:55 PM EDTComment:Clean-Voided Midstream Narrative Authorizing ProviderResult TypeResult StatusShaun MONTILLA MICROBIOLOGY - GENERAL ORDERABLESFinal ResultPerforming OrganizationAddressCity/State/ZIP Code Phone Number [facility] [address] [place] [place] [address], [facility] [address] [place] [address] * URINARY TRACT INFECTION (HTRX) (04/28/2025 1:20 PM EDT)ComponentValueRef Range Test MethodAnalysis TimePerformed AtPathologist SignatureACINETOBACTER JYEBTGUQ734.961 - 24.689 ppm04/29/2025 7:12 AM [facility] ACINETOBACTER BAUMANIINot Ncxplwws08.961 - 24.689 ppm04/29/2025 7:12 AM EDT [facility] LabPortCITROBACTER IADXVOCH022.000 - 32.015 ppm04/29/2025 7:12 AM EDTHealthTrackRx at LabPortCITROBACTER FREUNDIINot Vzqpakoi53.000 - 32.015 ppm04/29/2025 7:12 AM EDTHealthTrackRx at LabPortENTEROBACTER AEROGENES, QRVOHBN355.000 - 32.290 ppm04/29/2025 7:12 AM EDTHealthTrackRx at LabPortENTEROBACTER AEROGENES, CLOACAENot Axhgdbrl92.000 - 32.290 ppm 04/29/2025 7:12 AM EDTHealthTrackRx at LabPortENTEROCOCCUS FAECALIS, FAECIUM0 26.000 - 33.043 ppm04/29/2025 7:12 AM EDTHealthTrackRx at LabPortENTEROCOCCUS FAECALIS, FAECIUMNot Hvftcatz26.000 - 33.043 ppm04/29/2025 7:12 AM EDT [facility] at LabPortESCHERICHIA VOKQ276.000 - 28.500 ppm04/29/2025 7:12 AM EDTHealthTrackRx at LabPortESCHERICHIA COLINot Lfhejhla00.000 - 28.500 ppm 04/29/2025 7:12 AM EDTHealthTrackRx at LabPortKLEBSIELLA PNEUMONIAE, OXYTOCA0 23.000 - 31.865 ppm04/29/2025 7:12 AM EDTHealthTrackRx at LabPortKLEBSIELLA PNEUMONIAE, OXYTOCANot Mpwkddgq69.000 - 31.865 ppm04/29/2025 7:12 AM EDT [facility] LabPortMORGANELLA SLOEDKZJ873.961 - 24.689 ppm04/29/2025 7:12 AM EDTHealthTrackRx at LabPortMORGANELLA MORGANIINot Eaptbkcg80.961 - 24.689 ppm04/29/2025 7:12 AM EDTHealthTrackRx at LabPortPROTEUS MIRABILIS, VULGARIS0 23.000 - 28.500 ppm04/29/2025 7:12 AM EDTHealthTrackRx at LabPortPROTEUS MIRABILIS, VULGARISNot Zfshaujx09.000 - 28.500 ppm04/29/2025 7:12 AM EDT [facility] LabPortPSEUDOMONAS HZVSWOOTZO583.000 - 31.801 ppm04/29/2025 7:12 AM EDTHealthTrackRx at LabPortPSEUDOMONAS AERUGINOSANot Rkqajbjt70.000 - 31.801 ppm04/29/2025 7:12 AM EDTHealthTrackRx at LabPortSTAPHYLOCOCCUS AUREUS0 26.000 - 31.595 ppm04/29/2025 7:12 AM EDT[facility] STAPHYLOCOCCUS AUREUSNot Josxejha08.000 - 31.595 ppm04/29/2025 7:12 AM EDT [facility] LabPortSTREPTOCOCCUS AGALACTIAE (GROUP B STREP)026.000 - 32.435 ppm04/29/2025 7:12 AM EDTHealthTrackRx at LabPortSTREPTOCOCCUS AGALACTIAE (GROUP B STREP)Not Qxcjtwsj73.000 - 32.435 ppm04/29/2025 7:12 AM EDTHealthTrackRx at LabPortCANDIDA ALBICANS, PARAPSILOSIS, UPBUXWCBWO456.000 - 30.347 ppm04/29/2025 7:12 AM EDTHealth[facility]Rx at LabPortCANDIDA ALBICANS, PARAPSILOSIS, TROPICALISNot Cjojxjye55.000 - 30.347 ppm08/ 7:12 AM EDT [facility] LabPortCANDIDA AHHTSRIH002.000 - 31.618 ppm04/29/2025 7:12 AM EDTHealthTrackRx at LabPortCANDIDA GLABRATANot Uoyeemtz09.000 - 31.618 ppm 04/29/2025 7:12 AM EDTHealthTrackRx at LabPortCANDIDA CSBYSL629.000 - 30.873 ppm04/29/2025 7:12 AM EDTHealthTrackRx at LabPortCANDIDA KRUSEINot Detected 23.000 - 30.873 ppm04/29/2025 7:12 AM EDTHealthTrackRx at LabPortSERRATIA HYNPCGUAZW280.000 - 31.581 ppm04/29/2025 7:12 AM EDT[facility] SERRATIA MARCESCENSNot Nymzvgua19.000 - 31.581 ppm04/29/2025 7:12 AM EDT [facility] LabPortSTREPTOCOCCUS PYOGENES (GROUP A STREP)019.961 - 24.689 ppm04/29/2025 7:12 AM EDTHealthTrackRx at LabPortSTREPTOCOCCUS PYOGENES (GROUP A STREP)Not Ehjkhmnn45.961 - 24.689 ppm04/29/2025 7:12 AM EDT [facility] LabPortSTAPHYLOCOCCUS EPIDERMIDIS, HAEMOLYTICUS, LUGDUNENSIS, SAPROPHYTICUS (RBETT654.961 - 24.689 ppm04/29/2025 7:12 AM EDTHealthTrackRx at LabPortSTAPHYLOCOCCUS EPIDERMIDIS, HAEMOLYTICUS, LUGDUNENSIS, SAPROPHYTICUS (URINANot Qzzmxwtv21.961 - 24.689 ppm04/29/2025 7:12 AM EDTHealthTrackRx at LabPortSTAPHYLOCOCCUS EPIDERMIDIS, HAEMOLYTICUS, LUGDUNENSIS, SAPROPHYTICUS (NSGTT445.961 - 24.689 ppm04/29/2025 7:12 AM EDT[facility] STAPHYLOCOCCUS EPIDERMIDIS, HAEMOLYTICUS, LUGDUNENSIS, SAPROPHYTICUS (URINANot Vmqirtmg41.961 - 24.689 ppm04/29/2025 7:12 AM EDT[facility] Specimen (Source)Anatomical Location / LateralityCollection Method / Volume Collection TimeReceived QqluLszdj64/20/2025 1:20 PM EDT04/29/2025 1:34 AM EDT Narrative Authorizing ProviderResult TypeResult StatusAmy Ishan CASTANEDA BLOOD ORDERABLES Final ResultPerforming OrganizationAddressCity/State/ZIP CodePhone Number [facility] [address] [place] [address] * US OB PLACENTA (04/15/2025 4:27 PM EDT)Anatomical RegionLateralityModality OtherSpecimen (Source)Anatomical Location / LateralityCollection Method / VolumeCollection TimeReceived Time04/15/2025 4:27 PM EDT Narrative 04/15/2025 4:30 PM EDT [facility] ?[address] ? [place] [address] ? Ultrasound Report ? Signed ? Patient: NATALIE CESPEDES S ?MR#: [id number] ?? : 1985 ?Acct:[id number] ?? Age/Sex: 40 / F ?ADM Date: ?? Loc: [facility] ??250-1 ? Attending Dr: Candice Anderson D.O. ? Ordering Physician: Candice Anderson D.O. ?? Date of Service: 04/15/25 ?? Procedure(s): US OB placenta ?? Accession Number(s): [id number] ? cc: Candice Anderson D.O.; Lynn Jose D.O. ? [facility] ? [address] [facility] [place] ? [place] [address] ? Patient Name: ?? NATALIE CESPEDES ? MRN: [id number] ? date: 1985 ?Sex: F ?? Assigned Patient Location: [facility] ?? Current Patient Location: ? Accession/Order Number: [id number] ?? Exam Date: 04/15/2025 ??16:26 ?Report Date: 04/15/2025 ??16:27 ? At the request of: ?? CANDICE ??JUSTIN ??DO ? Procedure: ??US OB placenta ? Cervical length/placental ultrasound. ? Reason for exam: Vaginal bleeding for one day. ? COMPARISON: None. ? TECHNIQUE: Transabdominal imaging of the gravid uterus was obtained. ? FINDINGS: Cervical length is normal at 5.2 cm without evidence of funneling. ? Placenta is posterior location without focal abnormality. ? Single intrauterine is seen with a heart rate of 148 bpm. ? US/US OB placenta ?? IMPRESSION: ? Normal cervical length without funneling. ? Unremarkable placental ultrasound. ? Impression dictated by: Jacob Almanza Jr., D.O. ??04/15/2025 4:27 PM ? Dictation Location: RADIO-PC-19 ? Electronically authenticated by: [id number] ??Y ?? Date: 04/15/2025 ??16:27 ? Dictated By: ?Jacob Almanza M.D. ? Signed By: ?04/15/25 1630 ? DD/ 1627 ? TD/TT: ? Gate Clerk: Procedure Note Radiology, Radiologist, - 04/16/2025 [place] [address] Ultrasound Report Signed Patient: NATALIE CESPEDES SMR#: [id number] : 1985Acct:[id number] Age/Sex: 40 / FADM Date: Loc: [facility] 250-[address]: Candice Anderson D.O. Ordering Physician: Candice Anderson D.O. Date of Service: 04/15/25 Procedure(s): US OB placenta Accession Number(s): [id number] cc: Candice Anderson D.O.; Lynn Jose D.O. The [place] [id number] Patient Name: NATALIE CESPEDSE MRN: [id number] date: 1985 Sex: F Assigned Patient Location: [facility] Current Patient Location: Accession/Order Number: [id number] Exam Date: 04/15/2025 16:26 Report Date: 04/15/2025 [...] Unremarkable placental ultrasound. Impression dictated by: Jacob Alamnza Jr., D.O. 04/15/2025 4:27 PM Dictation Location: [place] [address] Electronically authenticated by: [id number] Y Date: 6:27 Dictated By: Jacob Almanza M.D. Signed By:04/15/25 1630 DD/ 1627 TD/TT: Gate Clerk: Authorizing ProviderResult TypeResult StatusCorey Justin CHEUNGLINISYNC IMAGINGFinal Result * US OB CERVICAL LENGTH (04/15/2025 4:27 PM EDT)Anatomical RegionLaterality ModalityOtherSpecimen (Source)Anatomical Location / LateralityCollection Method / VolumeCollection TimeReceived Time04/15/2025 4:27 PM EDT Narrative 04/15/2025 4:30 PM EDT [facility] ?[address] ? [place] [address] ? Ultrasound Report ? Signed ? Patient: NATALIE CESPEDES ?MR#: [id number] ?? : 1985 ?Acct:[id number] ?? Age/Sex: 40 / F ?ADM Date: ?? Loc: [facility] ??250- ? Attending Dr: Candice Anderson D.O. ? Ordering Physician: Candice Anderson D.O. ?? Date of Service: 04/15/25 ?? Procedure(s): US OB cervical length ?? Accession Number(s): [id number] ? cc: Candice Anderson D.O.; Lynn Jose D.O. ? [facility] ? [address] ? [place] [address] ? Patient Name: ?? NATALIE CESPEDES ? MRN: [id number] ? date: 1985 ?Sex: F ?? Assigned Patient Location: [facility] ?? Current Patient Location: ? Accession/Order Number: [id number] ?? Exam Date: 04/15/2025 ??16:26 ?Report Date: 04/15/2025 ??16:27 ? At the request of: ?? CANDICE ??JUSTIN ??DO ? Procedure: ??US OB placenta ? Cervical length/placental ultrasound. ? Reason for exam: Vaginal bleeding for one day. ? COMPARISON: None. ? TECHNIQUE: Transabdominal imaging of the gravid uterus was obtained. ? FINDINGS: Cervical length is normal at 5.2 cm without evidence of funneling. ? Placenta is posterior location without focal abnormality. ? Single intrauterine is seen with a heart rate of 148 bpm. ? US/US OB cervical length ?? IMPRESSION: ? Normal cervical length without funneling. ? Unremarkable placental ultrasound. ? Impression dictated by: Jacob Almanza Jr., D.O. ??04/15/2025 4:27 PM ? Dictation Location: RADIO-PC-19 ? Electronically authenticated by: [id number] ??Y ?? Date: 04/15/2025 ??16:27 ? Dictated By: ?Jacob Almanza M.D. ? Signed By: ?04/15/25 1630 ? DD/ 1627 ? TD/TT: ? Gate Clerk: Procedure Note Radiology, Radiologist, - 04/16/2025 [place] [address] Ultrasound Report Signed Patient: NATALIE CESPEDES SMR#: [id number] : 1985Acct:[id number] Age/Sex: 40 / FADM Date: Loc: [facility] 250-[address]: Candice Anderson D.O. Ordering Physician: Candice Anderson D.O. Date of Service: 04/15/25 Procedure(s): US OB cervical length Accession Number(s): [id number] cc: Candice Anderson D.O.; Lynn Jose D.O. The [address] [address] Patient Name: NATALIE CESPEDES MRN: [id number] date: 1985 Sex: F Assigned Patient Location: [facility] Current Patient Location: Accession/Order Number: [id number] Exam Date: 04/15/2025 16:26 Report Date: 04/15/2025 [...] Jr., D.O. 04/15/2025 4:27 PM Dictation Location: [place] [address] Electronically authenticated by: [id number] Y Date: 6:27 Dictated By: Jacob Almanza M.D. Signed By:04/15/25 1630 DD/ 1627 TD/TT: Gate Clerk: Authorizing ProviderResult TypeResult StatusCorey Justin DOCLINISYNC IMAGINGFinal Result * (ABNORMAL) [facility] URINE MICROSCOPIC ONLY (04/15/2025 2:55 PM EDT)ComponentValue Ref RangeTest MethodAnalysis TimePerformed AtPathologist SignatureTBH QQE65-00 (A)NONE SEEN #/HPFTBHTBH RBC0-20 - 2 #/HPFTBHBACTERIA URINELARGE(A)NONE SEEN #/HPFTBHMUCUS URINEMODERATE(A)NONE SEENTBHSQUAMOUS EPITHELIAL CELL URINE MODERATE(A)NONE/RARE #/LPFTBHCRYSTALS SEEN?None SeenNone Seen #/HPFTBHCAST SEEN?NONE SEENNONE SEEN #/LPFTBHURINE CULTURE INDICATEDYES-LCTBHSpecimen (Source)Anatomical Location / LateralityCollection Method / VolumeCollection TimeReceived Time04/15/2025 2:55 PM EDT04/15/2025 3:05 PM EDT Narrative [facility] - 04/15/2025 3:33 PM EDT Authorizing ProviderResult TypeResult StatusCorey Justin DOCLINISYNCFinal Result Performing OrganizationAddressCity/State/ZIP CodePhone Number [facility] * (ABNORMAL) [facility] UA (CLEAN/CATCH) FOOD QUALITY TECHNICIAN/MICRO IF IND. (04/15/2025 2:55 PM EDT) ComponentValueRef RangeTest MethodAnalysis TimePerformed AtPathologist SignatureCOLOR URINELT. YELLOWYELLOWTBHCLARITY URINESL CLOUDYCLEARTBHSPECIFIC GRAVITY URINE1.0151.005 - 1.025TBHPH URINE6.55.0 - 9.0TBHPROTEIN URINETRACE NEG/TRACE mg/dLTBHGLUCOSE URINE UANEGATIVENEGATIVE mg/dLTBHBILIRUBIN URINE NEGATIVENEGATIVETBHKETONES URINENEGATIVENEGATIVE mg/dLTBHBLOOD URINENEGATIVE NEGATIVETBHNITRITE URINEPOSITIVE(A)NEGATIVETBHUROBILINOGEN URINE1.00.2 - 1.0 EU/dLTBHLEUKOCYTE ESTERASE URINESMALL(A)NEGATIVETBHURINE MICROSCOPIC INDICATED YESTBHSpecimen (Source)Anatomical Location / LateralityCollection Method / VolumeCollection TimeReceived Time04/15/2025 2:55 PM EDT04/15/2025 3:05 PM EDT Narrative [facility] - 04/15/2025 3:33 PM EDT Authorizing ProviderResult TypeResult StatusCorey Justin DOCLINISYNCFinal Result Performing OrganizationAddressCity/State/ZIP CodePhone Number [facility] H * Pap Smear (02/09/2025 12:00 AM EDT)Specimen (Source)Anatomical Location / LateralityCollection Method / VolumeCollection TimeReceived TimeSwabCervical swab / Unknown Narrative Authorizing ProviderResult TypeResult StatusAmy Ishan PALAB CYTOLOGY ORDERABLES Final ResultPerforming OrganizationAddressCity/State/ZIP CodePhone Number EXTERNAL LAB from Last 3 Months or Most Recently Relevant to Health Maintenance Insurance
--- OUTSIDE RECORDS SUMMARY | 2025-06-29 09:22 | XMS_ITS | Encounter Summary ---
Author Organization [facility] Address [address] [facility] [place] [address] Care Team Providers Care Instructional Media Services Technician Name Role Phone Unavailable Primary Care Provider Unavailabl e Encounter Details DateTypeDepartmentCare Team (Latest Contact Info)Ajerezeptbp01/20/2025amboo flowsheet [facility] [address] [place] [address] Greg Anderson DO [address] [place], [place] [address], [place] [address] Social History Tobacco UseTypesPacks/DayYears UsedDateSmoking Tobacco: Never Assessed Estimated Date of IeursgtyVtkgkuhzYpz46/20/2025Based on UltrasoundSex and Gender InformationValueDate RecordedSex Assigned at ZjopkNpblrn83/21/2025 1:58 PM EST Legal YroBjqzwq33/15/2023 6:58 PM EDTGender QmnksteiUgoqth92/21/2025 1:58 PM EST Sexual CjtrjxbbzebGlsgmoux92/21/2025 1:58 PM ESTdocumented as of this encounter Plan of Treatment DateTypeDepartmentCare Team (Latest Contact Info)Uukzzpotyje51/27/2025 1:30 PM EDTRoutine [facility] [address] [place] [address] Greg Anderson, DO [address] [place], [facility] documented as of this encounter Visit Diagnoses Not on filedocumented in this encounter
--- OUTSIDE RECORDS SUMMARY | 2025-06-29 09:23 | XMS_ITS | Clinical Summary ---
Author Organization [employer] tem Address [id number] [address] [place] [address] Care Team Providers Care Explosive Ordnance Manager Name Role Phone Unavailable Primary Care Provider Unavailabl e Allergies Active AllergyReactionsCriticalityNoted DateCommentsSulfa (Sulfonamide Antibiotics)Ukzqslsm24/19/2025 Medications MedicationSigDispense QuantityRefillsLast FilledStart DateEnd DateStatus omeprazole (PriLOSEC) 40 mg capsule Take 1 capsule (40 mg total) by mouth in the morning.Active venlafaxine XR (EFFEXOR-XR) 150 mg 24 hr capsule Take 1 capsule (150 mg total) by mouth in the morning.Active labetaloL (NORMODYNE) 200 mg tablet Take 1 tablet (200 mg total) by mouth 3 (three) times a day.Active no115/iron/folic acid ( 19 ORAL) Take by mouth.Active aspirin 81 mg Take 1 tablet (81 mg total) by mouth in the morning.Active Active Problems ProblemNoted DateDiagnosed DateChoroid plexus cyst of fetus affecting care of mother, antepartum, fetus Multigravida of advanced maternal age in second ystndutns42/03/2025Estimated Date of DeliveryCommentsYes 07/29/2025ased on Ultrasound Encounters DateTypeDepartmentCare IsoqPjywvrimuqe55/11/8728Nwqrmy93/14/4444Ekxxjp22/30/2025 Telephone Maternal- Medicine at [facility] [address] [place] [id number] Lilly Rust, FANY from Last 3 Months Family History Medical HistoryRelationNameCommentsHypertensionFatherKidney nuwiqgbViskaeN2YP OmhuzhQ3OPCkrhxoci GrandfatherBreast cancerMaternal GrandmotherRelationName StatusCommentsFatherDeceasedMaternal GrandfatherMaternal Grandmother Social History Tobacco UseTypesPacks/DayYears UsedDateSmoking Tobacco: NeverSmokeless Tobacco: NeverAlcohol UseStandard Drinks/WeekCommentsNot Currently0 (1 standard drink = 0.6 oz pure alcohol)Hunger ScreeningAnswerDate RecordedWithin the past 12 months we worried whether our food would run out before we got money to buy more.Never True03/11/2025Within the past 12 months the food we bought just didn't last and we didn't have money to get more.Never True03/11/2025Estimated Date of ExrfrzvrOusudvwbZoi39/20/2025ased on UltrasoundSex and Gender InformationValue Date RecordedSex Assigned at BirthNot on fileLegal XrmHafrrk94/15/2025 11:20 AM EDTGender IdentityNot on fileSexual OrientationNot on file Last Filed Vital Signs Vital SignReadingTime TakenCommentsBlood Fwsszwuq593/8307 9:25 AM EDT Pmmoj253403/11/2025 9:25 AM EDTTemperature--Respiratory Rate--Oxygen Saturation-- Inhaled Oxygen Concentration--Fzykwk202.2 kg (269 lb 6.4 oz)03/11/2025 9:25 AM ZPXNyhivk319.6 cm (5' 4 )03/11/2025 9:25 AM EDTBody Mass Index46.24003/11/2025 9:25 AM EDT Plan of Treatment Health MaintenanceDue DateLast DoneCommentsDepression Xszqtpspo71/23/1999Adult BMI Follow Up Plan2005DTaP,Tdap and Td Vaccines (1 - Tdap)2006COVID- 19 Vaccine (2 - season)/10/2020Influenza Rzgpdki4005/10/2025 06/15/2022, 05/23/2021dult BMI Rjibxqxxe86Tobacco Screening Pap Smear06806 Medical Devices Not on file Procedures Procedure NamePriorityDate/TimeAssociated DiagnosisCommentsUS MFM OB FOLLOW-UP, 1 AHZZZRhjtvom83/11/2025 3:06 PM EDT Choroid plexus cyst of fetus in miranda Multigravida of advanced maternal age in second trimester Diet controlled gestational diabetes mellitus (GDM) in second trimester Hx of essential hypertension US MFM OB FOLLOW-UP, 1 ALFKXQpvhrbs45/14/2025 3:22 PM EDT Choroid plexus cyst of fetus in miranda Multigravida of advanced maternal age in second trimester from Last 3 Months Results * US MFM OB FOLLOW-UP, 1 FETUS (05/20/2025 3:06 PM EDT) Only the most recent of2 resultswithin the time period is included. Anatomical RegionLateralityModalityOB-GYNUltrasoundSpecimen (Source)Anatomical Location / LateralityCollection Method / VolumeCollection TimeReceived Time 05/20/2025 2:25 PM EDT Narrative 05/20/2025 3:28 PM EDT NAME: ??RUBINA ESTRADA : 1985 SEX: F Accession Number: [id number] ORDERING PHYSICIAN: CANDICE ANDERSON REFERRING PHYSICIAN: CANDICE ANDERSON Coding Procedures ? 27258: Follow-up Ultrasound, per fetus Indication , Screening for follow-up survey, AMA- Supervision of elderly, Chronic hypertension affecting , Obesity in , History OB History ? 2. Para 0 ? [id number] Maternal Assessment Physical Exam ??Height 163 cm, 5 ft 4 in. Initial weight 122 kg, 269 lb. Initial BMI 46.17 kg/m?? Method Transabdominal ultrasound examination. Miranda . Number of fetuses: 1 Dating Previous Ultrasound on: ?12/24/2024 Type of prior assessment: ?GA GA at prior assessment date ?9 w + 0 d GA by previous U/S ? 30 w + 0 d MARCOS by previous Ultrasound: ?07/29/2025 Ultrasound examination on: ? 05/20/2025 GA by U/S based upon: ??AC, BPD, Femur, HC GA by U/S ?30 w + 1 d MARCOS by U/S: ?07/28/2025 Assigned: ?based on ultrasound (GA), selected on 03/11/2025 Assigned GA (weeks days) ? 30 w + 0 d Assigned MARCOS: ??07/29/2025 General Evaluation Cardiac activity Present. FHR 144 bpm. Presentation: cephalic Placenta: Placental site: posterior, previously documented away from cervical os Umbilical cord: Cord vessels: 3 vessel cord. Insertion site: documented previously Amniotic fluid: Amount of AF: normal amount. MVP 6.2 cm Biometry Standard BPD ?75.9 mm 30w 3d 52% Hadlock OFD ?95.7 mm 30w 6d 74% Eliana HC ? 270.9 mm ?29w 4d 9% Hadlock Cerebellum tr ??37.1 mm 30w 4d 52% Hill AC ? 276.6 mm ?31w 5d 89% Hadlock Femur ??54.2 mm 28w 5d 8% Hadlock Humerus ?50.1 mm 29w 2d 36% Eliana HC / AC ?0.98 EFW ?1,578 g ??54% Hadlock EFW (lb) ? 3 lb EFW (oz) ? 8 oz EFW by: ?Hadlock ([id number]-FL) Extended Tibia ??49.6 mm 29w 5d 43% Eliana Client Services Representative ? 4.4 mm CM ? 7.0 mm ?? 51% Nicolaides Inner IOD ?16.6 mm Outer IOD ?49.2 mm Head / Face / Neck Cephalic index 0.79 ? 51% Nicolaides Nasal bone: ?documented previously Extremities / Bony Struc FL / BPD ? 0.71 FL / HC ?0.20 FL / AC ?0.20 Other Structures FHR ?144 bpm Anatomy The following structures appear normal: Head/Neck: Cranium. Lateral ventricles. Cavum septi pellucidi. Cerebellum. Cisterna magna. Parenchyma. Vermis. Face: Lips. Nose. Heart/Thorax: 4-chamber view. RVOT view. LVOT view. 6-oihuas-rgjakso view. Situs. Ductal arch view.Interventricular ? septum. Great vessels. Cardiac position. Cardiac axis. Cardiac size. Cardiac rhythm. ? Right lung. Left lung. Abdomen: Abdom. wall. Stomach. Kidneys. Bladder. Spine: Cervical spine. Thoracic spine. Lumbar spine. Sacral spine. The following structures were documented previously: Head / Neck ?Choroid plexus. Midline falx. ? Neck. Nuchal fold. Face ?? Profile. Nasal bone. Maxilla. Mandible. Orbits. Heart / Thorax 3-vessel view. Aortic arch view. Bicaval view. ? Diaphragm. Abdomen ?Cord insertion. Small bowel. Large bowel. Right renal artery. Left renal artery.Genitals. Extremities/Skeleton: Right upper arm. Right forearm. Right hand. Left upper arm. Left forearm. Left hand. Right upper leg. ? Right lower leg. Right foot. Left upper leg. Left lower leg. Left foot. Maternal Structures Uterus Visualized Cervix Suboptimal ? Approach - Transabdominal Right Ovary ?Not visualized Left Ovary ? Not visualized Cul de Sac ? Suboptimal Impression Single live intrauterine . 30w 0d. Normal growth. EFW measures at the 54%, AC measures at the 89%. anatomic survey did not reveal sonographic evidence of any gross structural abnormalities. Amniotic fluid MVP measures 6.2 cm. Recommendations Please see [facility] recommendations from prior clinical and/or ultrasound report documentation. Subsequent follow up or other follow up as clinically determined by primary OB provider unless otherwise specified by [facility]. Results forwarded to ordering provider so they can follow up with the patient as necessary. Procedure Note Sam Sultana MD - 05/20/2025 NAME: RUBINA ESTRADA : 1985 SEX: F Accession Number: [id number] ORDERING PHYSICIAN: CANDICE ANDERSON REFERRING PHYSICIAN: CANDICE ANDERSON Coding Procedures 20779: Follow-up Ultrasound, per fetus Indication , Screening for follow-up survey, AMA- Supervision of elderly, Chronic hypertension affecting , Obesity in , History OB History 2. Para 0 [id number] Maternal Assessment Physical Exam Height 163 cm, 5 ft 4 in. Initial weight 122 kg, 269 lb.Initial BMI 46.17 kg/m?? Method Transabdominal ultrasound examination. Miranda . Number of fetuses: 1 Dating Previous Ultrasound on: 12/24/2024 Type of prior [...] 0 d Assigned MARCOS: 07/29/2025 General Evaluation Cardiac activity Present. FHR 144 bpm. Presentation: cephalic Placenta: Placental site: posterior, previously documented away fromcervical os Umbilical cord: Cord vessels: 3 vessel cord. Insertion site: documented previously Amniotic fluid: Amount of AF: normal amount. MVP 6.2 cm Biometry Standard BPD 75.9 mm 30w 3d 52% [...] EFW (oz) 8 oz EFW by: Hadlock (RCG-DH-GR-FL) Extended Tibia 49.6 mm 29w 5d 43% Eliana Client Services Representative 4.4 mm CM 7.0 mm 51% Nicolaides Inner IOD 16.6 mm Outer IOD 49.2 mm Head / Face / Neck Cephalic index 0.79 51% Nicolaides Nasal bone: documented previously Extremities / Bony Struc FL / BPD 0.71 FL / HC 0.20 FL / AC 0.20 Other Structures FHR 144 bpm Anatomy The following structures appear normal: Head/Neck: Cranium. Lateral ventricles. Cavum septi pellucidi. Cerebellum. Cisterna magna. Parenchyma. Vermis. Face: Lips. Nose. Heart/Thorax: 4-chamber view. RVOT view. LVOT view. 0-cuurnu-uczlbcz view.Situs. Ductal arch view. Interventricular septum. Great [...] leg. Left lower leg. Leftfoot. Maternal Structures Uterus Visualized Cervix Suboptimal Approach - Transabdominal Right Ovary Not visualized Left Ovary Not visualized Cul de Sac Suboptimal Impression Single live intrauterine . 30w 0d. Normal growth. EFW measures at the 54%, AC measures at the 89%. anatomic survey did not reveal sonographic evidence of any grossstructural abnormalities. Amniotic fluid MVP measures 6.2 cm. Recommendations Please see MFM recommendations from prior clinical and/or ultrasoundreport documentation. Subsequent follow up or other follow up as clinically determined byprimary OB provider unless otherwise specified by MFM. Results forwarded to ordering provider so they can follow up with thepatient as necessary. Authorizing ProviderResult TypeResult StatusCorey Olga Anderson DOI US ORDERABLES Final Result from Last 3 Months Insurance
[2025-06-29 10:37] VITALS: BP 113/70; PULSE 85
== END 2025-06-29 10:38 | disposition home or self-care (01) ==
LOC: US 09:20 → FBC 09:22
PROVIDERS: PCP Family Medicine; Visit Provider Obstetrics & Gynecology
DX: O16.3 Unspecified maternal hypertension, third trimester (principal); Z3A.35 35 weeks gestation of pregnancy
CPT/HCPCS: 76818

== ENCOUNTER 2025-07-02 08:18 | Outpatient (OUT) | payer BC, SELFPAY ==
--- OUTSIDE RECORDS SUMMARY | 2025-06-28 09:40 | XMS_ITS | Encounter Summary ---
Author Organization [facility] Address [address] [facility] [place] [address] Care Team Providers Care Outside Machinist Supervisor Name Role Phone Unavailable Primary Care Provider Unavailabl e Reason for Referral * (Routine) - IncompleteSpecialtyDiagnoses / ProceduresReferred By Contact Referred To ContactRadiology Diagnoses Chronic hypertension Palpitations Procedures Echocardiogram 2D complete Greg Anderson DO [address] [place] [address] Phone: tel: fax: Referral IDStatusReasonStart DateExpiration DateVisits RequestedVisits [id number] Perform Procedure / Reason for Visit * ReasonCommentsRoutine Visit Encounter Details DateTypeDepartmentCare Team (Latest Contact Info)Qsvogpvtxpv54/20/2025 9:40 AM EDTRoutine [facility] [address] [place] [phone] Greg Anderson DO [address] [place] [address] 35 weeks gestation of ([facility]); Third trimester ([facility]); Gestational diabetes mellitus (GDM), antepartum, gestational diabetes method of control unspecified([facility]); Chronic hypertension; H/O miscarriage, currently ([facility]); UTI symptoms; Palpitations; Heartburn during , antepartum ([facility]) Social History Tobacco UseTypesPacks/DayYears UsedDateSmoking Tobacco: Never Assessed Estimated Date of XkoehnzhAwlwntweZnd08/20/2025Based on UltrasoundSex and Gender InformationValueDate RecordedSex Assigned at OfetwCaurhu33/21/2025 1:58 PM EST Legal IdkBaipxo81/15/2023 6:58 PM EDTGender VefuuupcGhyqkw32/21/2025 1:58 PM EST Sexual TjievyuylnuNyeozsbn03/21/2025 1:58 PM ESTdocumented as of this encounter Last Filed Vital Signs Vital SignReadingTime TakenCommentsBlood Hywgjchx491/801 9:58 AM EDT Pulse--Temperature--Respiratory Rate--Oxygen Saturation--Inhaled Oxygen Concentration--Zimjrp620 kg (269 lb)06/28/2025 9:58 AM EDTHeight--Body Mass [...] nursing note reviewed. Exam conducted with a environmental services project manager present. Vitals: There is no height or weight on file to calculate BMI. BP: 120/80 No LMP recorded. Patient is . Assessment/Plan ICD-10-CM 1. 35 weeks gestation of ([facility]) Z3A.35 POCT urinalysis dipstick manually resulted US biophysical profile w non stress test 2. Third trimester ([facility]) Z34.93 POCT urinalysis dipstick manually resulted US biophysical profile w non stress test 3. Gestational diabetes mellitus (GDM), antepartum, gestational diabetes method of control unspecified ([facility]) O24.419 POCT urinalysis dipstick manually resulted US biophysical profile w non stress test 4. Chronic hypertension I10 US biophysical profile w non stress test 5. H/O miscarriage, currently ([facility]) O09.299 US biophysical profile w non stress test 6. UTI symptoms R39.9 Urine culture Patient presents today for a routine obstetrics appointment. Patient is currently 35w4d with a Estimated Date of Delivery: 07/29/25. Patient to have GBS at next appointment. Patient is to schedule NST/BPP's at [facility] to get started. Patient voiced that vomiting has increased. Patient to also setup ECHO and EKG at [facility]. Patient to return to clinic in 1 week to sign IOL consents and have GBS obtained. Documented by Sanaz Mcconnell LPN on behalf of: Greg Anderson DO documented in this encounter Plan of Treatment DateTypeDepartmentCare Team (Latest Contact Info)Zwolgkzubmk88/27/2025 1:30 PM EDTRoutine [facility] [address] [place] [phone] Greg Anderson DO [address] [place] [address] NameTypePriorityAssociated DiagnosesOrder ScheduleUS biophysical profile w non stress testImagingRoutine 35 weeks gestation of ([facility]) Third trimester ([facility]) Gestational diabetes mellitus (GDM), antepartum, gestational diabetes method of control unspecified([facility]) Chronic hypertension H/O miscarriage, currently ([facility]) Expected: 06/28/2025 (Approximate), Expires: 12/27/2025Urine cultureMicrobiology Routine UTI symptoms Ordered: 06/28/2025ECG 12 lead unit performedECGRoutine Chronic hypertension Palpitations Expected: 06/28/2025 (Approximate), Expires: 06/28/2026Echocardiogram 2D completeEchocardiographyRoutine Chronic hypertension Palpitations Expected: 06/28/2025 (Approximate), Expires: 06/28/2027documented as of this encounter Procedures Procedure NamePriorityDate/TimeAssociated DiagnosisCommentsPOCT URINALYSIS DTJTSSWCTsgusgw77/20/2025 10:04 AM EDT 35 weeks gestation of ([facility]) Third trimester ([facility]) Gestational diabetes mellitus (GDM), antepartum, gestational diabetes method of control unspecified([facility]) documented in this encounter Results * [...] Location / LateralityCollection Method / VolumeCollection TimeReceived SnjpHhehf66/20/2025 10:04 AM EDT Narrative Authorizing ProviderResult TypeResult StatusCorereba Anderson DOPOINT OF CARE TEST ENTER/EDIT ORDERABLESFinal Result documented in this encounter Visit Diagnoses Diagnosis 35 weeks gestation of ([facility]) Third trimester ([facility]) state, incidental Gestational diabetes mellitus (GDM), antepartum, gestational diabetes method of control unspecified([facility]) Chronic hypertension H/O miscarriage, currently ([facility]) UTI symptoms Palpitations Heartburn during , antepartum ([facility]) documented in this encounter
--- OUTSIDE RECORDS SUMMARY | 2025-07-02 08:20 | XMS_ITS | Encounter Summary ---
Author Organization [facility] Address [address] [facility] [place] [address] Care Team Providers Care Science Intern Name Role Phone Unavailable Primary Care Provider Unavailabl e Encounter Details DateTypeDepartmentCare Team (Latest Contact Info)Jbpjqtrhkog38/20/2025External Result Encounter [facility] External Department Unsolicited Greg Anderson DO [address] [place], [facility] Social History Tobacco UseTypesPacks/DayYears UsedDateSmoking Tobacco: Never Assessed Estimated Date of MfkqmuogPczvpamqFkg14/20/2025Based on UltrasoundSex and Gender InformationValueDate RecordedSex Assigned at VfiuhLttkep31/21/2025 1:58 PM EST Legal ZzwRhfxfp12/15/2023 6:58 PM EDTGender WmeoxxqiWntrak77/21/2025 1:58 PM EST Sexual DbbglcytudbQilrphtc54/21/2025 1:58 PM ESTdocumented as of this encounter Plan of Treatment DateTypeDepartmentCare Team (Latest Contact Info)Xhjihwivjnm01/27/2025 1:30 PM EDTRoutine [facility] [address] [place] [address] Greg Anderson DO [address] [place] [address] documented as of this encounter Procedures Procedure NamePriorityDate/TimeAssociated DiagnosisCommentsURINARY TRACT INFECTION (HTRX)Qleeihv8406/28/2025 11:26 AM EDT documented in this encounter Results * (ABNORMAL) URINARY TRACT INFECTION (HTRX) (06/28/2025 11:26 AM EDT)Component ValueRef RangeTest MethodAnalysis TimePerformed AtPathologist Signature ACINETOBACTER WTGKUYPM937.961 - 24.689 ppm06/29/2025 7:56 AM EDTHealthTrackRx at LabPortACINETOBACTER BAUMANIINot Vpzjpmvw38.961 - 24.689 ppm06/29/2025 7:56 AM EDTHealthTrackRx at LabPortCITROBACTER WIWIVGNM350.000 - 32.015 ppm 06/29/2025 7:56 AM EDTHealthTrackRx at LabPortCITROBACTER FREUNDIINot Detected 23.000 - 32.015 ppm06/29/2025 7:56 AM EDTHealthTrackRx at LabPortENTEROBACTER AEROGENES, PSGTBBY924.000 - 32.290 ppm06/29/2025 7:56 AM EDTHealthTrackRx at LabPortENTEROBACTER AEROGENES, CLOACAENot Xfnhrjxx70.000 - 32.290 ppm 06/29/2025 7:56 AM EDTHealthTrackRx at LabPortENTEROCOCCUS FAECALIS, FAECIUM0 26.000 - 33.043 ppm06/29/2025 7:56 AM EDTHealthTrackRx at LabPortENTEROCOCCUS FAECALIS, FAECIUMNot Lqjnqhmk37.000 - 33.043 ppm06/29/2025 7:56 AM EDT [facility] at LabPortESCHERICHIA COLI20.735(A)23.000 - 28.500 ppm06/29/2025 7:56 AM EDTHealthTrackRx at LabPortESCHERICHIA COLIDetected(A)23.000 - 28.500 ppm06/29/2025 7:56 AM EDTHealthTrackRx at LabPortKLEBSIELLA PNEUMONIAE, OFUVHCZ258.000 - 31.865 ppm06/29/2025 7:56 AM EDTHealthTrackRx at LabPort KLEBSIELLA PNEUMONIAE, OXYTOCANot Gthtgsvr73.000 - 31.865 ppm06/29/2025 7:56 AM EDTHealthTrackRx at LabPortMORGANELLA PUCCLOVW510.961 - 24.689 ppm 06/29/2025 7:56 AM EDTHealthTrackRx at LabPortMORGANELLA MORGANIINot Detected 19.961 - 24.689 ppm06/29/2025 7:56 AM EDTHealthTrackRx at LabPortPROTEUS MIRABILIS, JYYIFTKU640.000 - 28.500 ppm06/29/2025 7:56 AM EDTHealthTrackRx at LabPortPROTEUS MIRABILIS, VULGARISNot Cyervhqo01.000 - 28.500 ppm06/29/2025 7:56 AM EDTHealthTrackRx at LabPortPSEUDOMONAS CIPUVWLXNK813.000 - 31.801 ppm 06/29/2025 7:56 AM EDTHealthTrackRx at LabPortPSEUDOMONAS AERUGINOSANot Rikzusdn61.000 - 31.801 ppm06/29/2025 7:56 AM EDTHealthTrackRx at [facility] STAPHYLOCOCCUS FVTBAD525.000 - 31.595 ppm06/29/2025 7:56 AM EDTHealthTrackRx at LabPortSTAPHYLOCOCCUS AUREUSNot Ejlnbspy95.000 - 31.595 ppm06/29/2025 7:56 AM EDTHealthTrackRx at LabPortSTREPTOCOCCUS AGALACTIAE (GROUP B STREP)026.000 - 32.435 ppm06/29/2025 7:56 AM EDTHealthTrackRx at LabPortSTREPTOCOCCUS AGALACTIAE (GROUP B STREP)Not Velkpkqb58.000 - 32.435 ppm06/29/2025 7:56 AM EDTHealthTrackRx at LabPortCANDIDA ALBICANS, PARAPSILOSIS, XBSDRFPOLK266.000 - 30.347 ppm06/29/2025 7:56 AM EDTHealthTrackRx at LabPortCANDIDA ALBICANS, PARAPSILOSIS, TROPICALISNot Mwelyaek41.000 - 30.347 ppm06/29/2025 7:56 AM EDT [facility] at LabPortCANDIDA GBSWWWZY296.000 - 31.618 ppm06/29/2025 7:56 AM EDTHealthTrackRx at LabPortCANDIDA GLABRATANot Cehnooro81.000 - 31.618 ppm 06/29/2025 7:56 AM EDTHealthTrackRx at LabPortCANDIDA IHBSTO417.000 - 30.873 ppm06/29/2025 7:56 AM EDTHealthTrackRx at LabPortCANDIDA KRUSEINot Detected 23.000 - 30.873 ppm06/29/2025 7:56 AM EDTHealthTrackRx at LabPortSERRATIA FCUBTFVRIH837.000 - 31.581 ppm06/29/2025 7:56 AM EDTHealthTrackRx at LabPort SERRATIA MARCESCENSNot Gldwufya72.000 - 31.581 ppm06/29/2025 7:56 AM EDT [facility] at LabPortSTREPTOCOCCUS PYOGENES (GROUP A STREP)019.961 - 24.689 ppm06/29/2025 7:56 AM EDTHealthTrackRx at LabPortSTREPTOCOCCUS PYOGENES (GROUP A STREP)Not Pouukllq71.961 - 24.689 ppm06/29/2025 7:56 AM EDTHealthTrackRx at LabPortSTAPHYLOCOCCUS EPIDERMIDIS, HAEMOLYTICUS, LUGDUNENSIS, SAPROPHYTICUS (UOTOX182.961 - 24.689 ppm06/29/2025 7:56 AM EDTHealthTrackRx at [facility] STAPHYLOCOCCUS EPIDERMIDIS, HAEMOLYTICUS, LUGDUNENSIS, SAPROPHYTICUS (URINANot Imoqluwi71.961 - 24.689 ppm06/29/2025 7:56 AM EDTHealthTrackRx at [facility] STAPHYLOCOCCUS EPIDERMIDIS, HAEMOLYTICUS, LUGDUNENSIS, SAPROPHYTICUS (URINA0 19.961 - 24.689 ppm06/29/2025 7:56 AM EDTHealth[facility]Rx at [facility] STAPHYLOCOCCUS EPIDERMIDIS, HAEMOLYTICUS, LUGDUNENSIS, SAPROPHYTICUS (URINANot Syujrkbp23.961 - 24.689 ppm06/29/2025 7:56 AM EDTHealthTrackRx at LabPortTET B, TET M26.455(A)23.000 - 27.500 ppm06/29/2025 7:56 AM EDTHealthTrackRx at [facility] HospitalTET CINDI Boss MDetected(A)23.000 - 27.500 ppm06/29/2025 7:56 AM EDT [facility] HospitalSpecimen (Source)Anatomical Location / Laterality Collection Method / VolumeCollection TimeReceived DtheFciyo98/20/2025 11:26 AM EDT1 1:41 AM EDT Narrative Authorizing ProviderResult TypeResult StatusCorey Justin DOLAB BLOOD ORDERABLES Final ResultPerforming OrganizationAddressCity/State/ZIP CodePhone Number [facility] [place] [phone] [address] [address] documented in this encounter Visit Diagnoses Not on filedocumented in this encounter
--- OUTSIDE RECORDS SUMMARY | 2025-07-02 08:21 | XMS_ITS | Encounter Summary ---
Author Organization [facility] Address [address] [facility] [place] [address] Care Team Providers Care Artist Color Separation Name Role Phone Unavailable Primary Care Provider Unavailabl e Encounter Details DateTypeDepartmentCare Team (Latest Contact Info)Hhsydysidus48/22/2025Telephone [facility] MESSINA [address] [place] [address] Hina Moura MA Social History Tobacco UseTypesPacks/DayYears UsedDateSmoking Tobacco: Never Assessed Estimated Date of JojowaiwCrnfzeqkUdj14/20/2025Based on UltrasoundSex and Gender InformationValueDate RecordedSex Assigned at AtkzmWiszhl85/21/2025 1:58 PM EST Legal XssYtihtb62/15/2023 6:58 PM EDTGender KkjrgugoQnlqla66/21/2025 1:58 PM EST Sexual HakgiuelnqsRnndktdo83/21/2025 1:58 PM ESTdocumented as of this encounter Miscellaneous Notes * Telephone Encounter - Hina Moura MA - 06/30/2025 8:54 AM EDT Pt notified of results and recommendations. Pharmacy confirmed and medication sent. documented in this encounter Plan of Treatment DateTypeDepartmentCare Team (Latest Contact Info)Bmnfvsdfhyb96/27/2025 1:30 PM EDTRoutine [facility] MESSINA [address] [place] [phone] Greg Anderson DO [address] [place] [address] documented as of this encounter Visit Diagnoses Diagnosis Urinary tract infection with hematuria, site unspecified documented in this encounter
--- OUTSIDE RECORDS SUMMARY | 2025-07-02 08:22 | XMS_ITS | Clinical Summary ---
Author Organization [facility] Healthcare Address [address] [place] [address] Care Team Providers Care Asthma Educator Name Role Phone Unavailable Primary Care Provider Unavailabl e Allergies Active AllergyReactionsCriticalityNoted DateCommentsSulfa AntibioticsSwelling High03/30/2016 Other Reaction(s): Swelling of throat Sulfamethoxazole-KgtffdmwdmpmXndoxib01/11/2024 Medications MedicationSigDispense QuantityRefillsLast FilledStart DateEnd DateStatus venlafaxine XR (Effexor XR) 150 MG 24 hr capsule Take 150 mg by mouth Daily04/14/2024ctive omeprazole (PriLOSEC) [address] capsule PLEASE SEE ATTACHED FOR DETAILED FXFRMFLQDJ90/02/2025Active labetalol (Normodyne) 200 MG tablet Indications:Elevated blood pressure readingTake 1 tablet (200 mg) by mouth in the morning and 1 tablet (200 mg) in the evening and 1 tablet (200 mg) before bedtime. 90 tablet 1104/150395/6Active MV-Min-Fe Fum-FA-DHA ( 1 PO) Take by [...] by mouth every 6 (six) hours if ubpzoh645Active phenazopyridine (Pyridium) 100 MG tablet Indications:Urinary tract infection without hematuria, site unspecifiedTake 1 tablet (100 mg) by mouth 3 (three) times a day as needed for bladder spasms for up to 9 doses 9 tablet 5Active Additional Information Patient not taking.Reported on 06/14/2025 metoclopramide (Reglan) 10 MG tablet Indications:Heartburn during , antepartum ([facility]HS-HCC)Take 1 tablet (10 mg) by mouth in the morning and 1 tablet (10 mg) at noon and 1 tablet (10 mg) in the evening. Take before meals. Take 1 tablet by mouth 30 minutes prior to meals 3 times daily as needed for nausea. 90 tablet /5Active pantoprazole (Protonix) 40 MG EC tablet Indications:Heartburn during , antepartum (HHS-HCC)Take 1 tablet (40 mg) by mouth in the morning. Take before meals. Do not crush, chew, or split. 30 tablet 1116Active nitrofurantoin, macrocrystal-monohydrate, (Macrobid) 100 MG capsule Indications:Urinary tract infection with hematuria, site unspecifiedTake 1 capsule (100 mg) by mouth in the morning and 1 capsule (100 mg) before bedtime. Do all this for 7 days. 14 capsule /5Active Active Problems Estimated Date of DcyqnzibCztffypcChl82/20/2025Based on Ultrasound No known active problems Encounters DateTypeDepartmentCare UmfsQfveftxdpfw64/22/2025bstract [facility] S[facility] OBPAULO [address] [place] [address] [place] [address] Roma MouraWoodrow, [place] 06/30/2025Telephone [facility] [address] [place] [address] Hina MouraSPICER, [place] 06/28/2025 9:40 AM EDTRoutine [facility] [address] [place] [address] Candice Anderson, DO 35 weeks gestation of ([facility]); Third trimester ([facility]); Gestational diabetes mellitus (GDM), antepartum, gestational diabetes method of control unspecified([facility]); Chronic hypertension; H/O miscarriage, currently ([facility]); UTI symptoms; Palpitations; Heartburn during , antepartum ([facility])06/28/2025External Result Encounter [facility] External Department Unsolicited Candice Anderson, 06/28/2025amboo flowsheet [facility] [address] [place] [address] Candice Anderson, 06/17/2025bstract [facility] [place] [facility] [address] [place] [address] Candice Anderson, 06/14/2025 11:50 AM EDTRoutine [facility] [address] [place] [address] Suzanne Valdivia NP 33 weeks gestation of ([facility]); Third trimester ([facility]); Gestational diabetes mellitus (GDM), antepartum, gestational diabetes method of control unspecified([facility])06/14/2025linisync Result Encounter [facility] External Department Unsolicited Krupa Olmstead PA 06/14/2025amboo flowsheet [facility] [place] [facility] [address] [place] [address] Suzanne Valdivia NP 05/27/2025 8:50 AM EDTRoutine [facility] [address] [place] [address] Krupa Olmstead PA Size of fetus inconsistent with dates, antepartum ([facility] (Primary Dx); Third trimester ([facility]); 31 weeks gestation of ([facility])05/27/2025amboo flowsheet [facility] [address] [place] [address] Krupa Olmstead PA 05/20/2025bstract [facility] [address] [place] [address] Candice Anderson, 05/13/2025 8:30 AM EDTRoutine [facility] [place] [facility] [address] [place] [address] Candice Anderson, 29 weeks gestation of ([facility]); Third trimester ([facility]); Gestational diabetes mellitus (GDM), antepartum, gestational diabetes method of control unspecified([facility]); Urinary tract infection without hematuria, site eajlxcpchec55/04/2025amb flowsheet [facility] [address] [place] [phone] Candice Anderson, 05/11/2025External Result Encounter NOMS External Department Unsolicited Shaun Rebollar MD 05/10/2025External Result Encounter NOMS External Department Unsolicited Shaun Rebollar MD 05/10/2025External Result Encounter N[facility]S External Department Unsolicited Shaun Rebollar MD 05/10/2025External Result Encounter [facility] External Department Unsolicited Shaun Rebollar MD 05/10/2025External Result Encounter [facility] External Department Unsolicited Shaun Rebollar MD 05/10/2025External Result Encounter N[facility] External Department Unsolicited Shaun Rebollar MD 05/04/2025bstract [facility] [place] [facility] [address] [place] [phone] Candice Anderson, DO 05/04/2025Telephone [facility] S[facility] OBGYCeline [address] [place] [phone] Candice Anderson, DO 04/28/2025 1:00 PM EDTRoutine [facility] Sree ZIMMERGYCeline [address] [place] [address] Krupa Olmstead PA 26 weeks gestation of ([facility]); Second trimester ([facility]); Urinary tract infection with hematuria, site unspecified; Yeast vjttrieoj27/20/2025amboo flowsheet [facility] OBGYCeline [address] [place] [address] Krupa Olmstead PA 04/23/2025bstract [facility] [address] [place] [address] Candice Anderson, DO 04/21/20258128Akuicm61/07/2025Clinisync Result Encounter NOMS External Department Unsolicited Candice Anderson, DO 5Clinisync Result Encounter NOMS External Department Unsolicited Candice Anderson, DO 5Clinisync Result Encounter NOMS External Department Unsolicited Candice Anderson, DO 04/15/2025Telephone [facility] [address] [place] [address] Hina Moura MA from Last 3 Months Social History Tobacco UseTypesPacks/DayYears UsedDateSmoking Tobacco: Never Assessed Estimated Date of MthkirvxSvglsofmPzk37/20/2025ased on UltrasoundSex and Gender InformationValueDate RecordedSex Assigned at AcqgyMdfaap53/21/2025 1:58 PM EST Legal EstUkghey66/15/2023 6:58 PM EDTGender CgczrawoLzzhlw32/21/2025 1:58 PM EST Sexual WboujxajjeyUdrutvuv37/21/2025 1:58 PM EST Last Filed Vital Signs Vital SignReadingTime TakenCommentsBlood Chyonajc760/801 9:58 AM EDT Pulse--Temperature--Respiratory Rate--Oxygen Saturation--Inhaled Oxygen Concentration--Llawck823 kg (269 lb)06/28/2025 9:58 AM EDTHeight--Body Mass Index-- Plan of Treatment DateTypeDepartmentCare Team (Latest Contact Info)Xinyelbjojy17/27/2025 1:30 PM EDTRoutine [facility] [address] [place] [address] Candice Anderson, [address] [place], [place] [phone] Health MaintenanceDue DateLast DoneCommentsHPV/Xrjrgt7503/01/2017Influenza Vaccine (#1)/03/2022, 1Cervical Cancer Eakesjybi56/03/2028Pap Smear Procedures Procedure NamePriorityDate/TimeAssociated DiagnosisCommentsURINARY TRACT INFECTION (HTRX)Zaxazxm2906/28/2025 11:26 AM EDT POCT URINALYSIS CUEQRGKFBvyavnh44/20/2025 10:04 AM EDT 35 weeks gestation of ([facility]) Third trimester ([facility]) Gestational diabetes mellitus (GDM), antepartum, gestational diabetes method of control unspecified([facility]) US OB RXDUAI1206/14/2025 12:01 PM EDT POCT URINALYSIS DLIERWBOFvqtvpk97/06/2025 11:49 AM EDT 33 weeks gestation of ([facility]) Third trimester ([facility]) POCT URINALYSIS HKEYISNPEuzlfmm81/18/2025 8:58 AM EDT Third trimester ([facility]-HCC) POCT URINALYSIS GOLDJDSGZdebqii67/04/2025 8:42 AM EDT 29 weeks gestation of ([facility]) Third trimester ([facility]) US RENAL BMUZRFBF33/02/2025 12:52 PM EDT QGWTIFSMCT98/01/2025 11:10 PM EDT XYQYTIUUUBT55/01/2025 11:10 PM EDT COMPREHENSIVE METABOLIC WOGPYSLYL75/01/2025 11:10 PM EDT CBC WITH AUTO KQHHYYJACHRNXDAZ08/01/2025 11:10 PM EDT VWECSBMZMWFLFSE39/01/2025 11:05 PM EDT AEROBIC DAVE CHARGE (NMIC56)STAT05/10/2025 10:30 PM EDT URINALYSIS ZTYTMLLOAB28/01/2025 10:30 PM EDT CULTURE, URINE, HMUAFFRUNLT87/01/2025 10:30 PM EDT URINARY TRACT INFECTION (HTRX)Ncucwfd9504/28/2025 1:20 PM EDT POCT URINALYSIS ADJCQCGLMmwnloc85/20/2025 1:15 PM EDT 26 weeks gestation of ([facility]) Second trimester ([facility]) US OB IVXCWNKP17/07/2025 4:27 PM EDT US OB CERVICAL YBNEQH2804/15/2025 4:27 PM EDT [facility] URINE MICROSCOPIC HNUDVxvpslk10/07/2025 2:55 PM EDT [facility] UA (CLEAN/CATCH) PLAN COORDINATOR/MICRO IF IND.Gfuzziu5604/15/2025 2:55 PM EDT PAP OHCYGDnyagph96/03/2025 12:00 AM EDTfrom Last 3 Months or Most Recently Relevant to Health Maintenance Results * (ABNORMAL) URINARY TRACT INFECTION (HTRX) (06/28/2025 11:26 AM EDT) Only the most recent of2 resultswithin the time period is included. ComponentValueRef RangeTest MethodAnalysis TimePerformed AtPathologist Signature ACINETOBACTER UJPGXEBT356.961 - 24.689 ppm06/29/2025 7:56 AM EDTHealthTrackRx at LabPortACINETOBACTER BAUMANIINot Dwrddcix32.961 - 24.689 ppm06/29/2025 7:56 AM EDTHealthTrackRx at LabPortCITROBACTER COTIAQTB112.000 - 32.015 ppm06/29/2025 7:56 AM EDTHealthTrackRx at LabPortCITROBACTER FREUNDIINot Tlrmmeky40.000 - 32.015 ppm06/29/2025 7:56 AM EDTHealthTrackRx at LabPortENTEROBACTER AEROGENES, ONFVFGO146.000 - 32.290 ppm06/29/2025 7:56 AM EDTHealthTrackRx at LabPort ENTEROBACTER AEROGENES, CLOACAENot Gsmlunce29.000 - 32.290 ppm06/29/2025 7:56 AM EDTHealthTrackRx at LabPortENTEROCOCCUS FAECALIS, PKPTTSU591.000 - 33.043 ppm 06/29/2025 7:56 AM EDTHealthTrackRx at LabPortENTEROCOCCUS FAECALIS, FAECIUMNot Waudnfhe89.000 - 33.043 ppm06/29/2025 7:56 AM EDTHealthTrackRx at LabPort ESCHERICHIA COLI20.735(A)23.000 - 28.500 ppm06/29/2025 7:56 AM EDTHealthTrackRx at LabPortESCHERICHIA COLIDetected(A)23.000 - 28.500 ppm06/29/2025 7:56 AM EDT [facility] at LabPortKLEBSIELLA PNEUMONIAE, NPUDSBR806.000 - 31.865 ppm 06/29/2025 7:56 AM EDTHealthTrackRx at LabPortKLEBSIELLA PNEUMONIAE, OXYTOCANot Edpsztll91.000 - 31.865 ppm06/29/2025 7:56 AM EDTHealthTrackRx at LabPort MORGANELLA CSXUMLBR377.961 - 24.689 ppm06/29/2025 7:56 AM EDTHealthTrackRx at LabPortMORGANELLA MORGANIINot Kfjvlcgn87.961 - 24.689 ppm06/29/2025 7:56 AM EDT [facility] at LabPortPROTEUS MIRABILIS, WQZGLWGT011.000 - 28.500 ppm 06/29/2025 7:56 AM EDTHealthTrackRx at LabPortPROTEUS MIRABILIS, VULGARISNot Ovnlfmvd59.000 - 28.500 ppm06/29/2025 7:56 AM EDTHealthTrackRx at [facility]Port PSEUDOMONAS JFLZVWXNUT641.000 - 31.801 ppm06/29/2025 7:56 AM EDTHealthTrackRx at LabOtis [facility]. Bowen Center For Human ServicesPSEUDOMONAS AERUGINOSANot Dspepbys30.000 - 31.801 ppm06/29/2025 7:56 AM EDTHealthTrackRx at LabPortSTAPHYLOCOCCUS DSFRTU416.000 - 31.595 ppm06/29/2025 7:56 AM EDTHealthTrackRx at LabPortSTAPHYLOCOCCUS AUREUSNot Txbonhuh34.000 - 31.595 ppm06/29/2025 7:56 AM EDTHealthTrackRx at LabPortSTREPTOCOCCUS AGALACTIAE (GROUP B STREP)026.000 - 32.435 ppm06/29/2025 7:56 AM EDTHealthTrackRx at LabPortSTREPTOCOCCUS AGALACTIAE (GROUP B STREP)Not Ykarqaoh81.000 - 32.435 ppm 06/29/2025 7:56 AM EDTHealthTrackRx at LabPortCANDIDA ALBICANS, PARAPSILOSIS, AJGBWJXGBV042.000 - 30.347 ppm06/29/2025 7:56 AM EDTHealthTrackRx at LabPort RINA ALBICANS, PARAPSILOSIS, TROPICALISNot Eqrceuco98.000 - 30.347 ppm 06/29/2025 7:56 AM EDTHealthTrackRx at LabPortCANDIDA RGLFSZBI223.000 - 31.618 ppm06/29/2025 7:56 AM EDTHealthTrackRx at LabPortCANDIDA GLABRATANot Detected 23.000 - 31.618 ppm06/29/2025 7:56 AM EDTHealthTrackRx at LabPortCANDIDA KRUSEI0 23.000 - 30.873 ppm06/29/2025 7:56 AM EDTHealthTrackRx at LabPortCANDIDA KRUSEI Not Tqxmhzkw91.000 - 30.873 ppm06/29/2025 7:56 AM EDTHealthTrackRx at LabPort SERRATIA BJHVHVHGUC438.000 - 31.581 ppm06/29/2025 7:56 AM EDTHealthTrackRx at LabPortSERRATIA MARCESCENSNot Huxoepey79.000 - 31.581 ppm06/29/2025 7:56 AM EDT [facility] at LabPortSTREPTOCOCCUS PYOGENES (GROUP A STREP)019.961 - 24.689 ppm06/29/2025 7:56 AM EDTHealthTrackRx at LabPortSTREPTOCOCCUS PYOGENES (GROUP A STREP)Not Sdufyayv89.961 - 24.689 ppm06/29/2025 7:56 AM EDTHealthTrackRx at LabPortSTAPHYLOCOCCUS EPIDERMIDIS, HAEMOLYTICUS, LUGDUNENSIS, SAPROPHYTICUS (HQHFP522.961 - 24.689 ppm06/29/2025 7:56 AM EDTHealthTrackRx at [facility]Port STAPHYLOCOCCUS EPIDERMIDIS, HAEMOLYTICUS, LUGDUNENSIS, SAPROPHYTICUS (URINANot Zrzdhzwn24.961 - 24.689 ppm06/29/2025 7:56 AM EDTHealthTrackRx at [facility] STAPHYLOCOCCUS EPIDERMIDIS, HAEMOLYTICUS, LUGDUNENSIS, SAPROPHYTICUS (URINA0 19.961 - 24.689 ppm06/29/2025 7:56 AM EDTHealthTrackRx at LabPortSTAPHYLOCOCCUS EPIDERMIDIS, HAEMOLYTICUS, LUGDUNENSIS, SAPROPHYTICUS (URINANot Jytzvnxv01.961 - 24.689 ppm06/29/2025 7:56 AM EDTHealthTrackRx at [facility] Karyn, TET M26.455(A) 23.000 - 27.500 ppm06/29/2025 7:56 AM EDTHealthTrackRx at [facility] B, TET M Detected(A)23.000 - 27.500 ppm06/29/2025 7:56 AM EDTHealthTrackRx at [facility] Specimen (Source)Anatomical Location / LateralityCollection Method / Volume Collection TimeReceived OdsgBqkoj95/20/2025 11:26 AM EDT1 1:41 AM EDT Narrative Authorizing ProviderResult TypeResult StatusCorey Justin DOLAB BLOOD ORDERABLES Final ResultPerforming OrganizationAddressCity/State/ZIP CodePhone Number [facility] [address] [address] * (ABNORMAL) POCT urinalysis dipstick manually resulted (06/28/2025 10:04 AM EDT) Only the most recent of5 resultswithin the time period is included. ComponentValueRef [...] Location / LateralityCollection Method / VolumeCollection TimeReceived MtkeZzlsy62/20/2025 10:04 AM EDT Narrative Authorizing ProviderResult TypeResult StatusCorey Justin DOPOINT OF CARE TEST ENTER/EDIT ORDERABLESFinal Result * US OB GROWTH (06/14/2025 12:01 PM EDT)Anatomical RegionLateralityModalityOther Specimen (Source)Anatomical Location / LateralityCollection Method / Volume Collection TimeReceived Time06/14/2025 12:01 PM EDT Narrative 06/14/2025 12:04 PM EDT [facility] ?[address] ? [place], [facility] ? Ultrasound Report ? Signed ? Patient: RUBINA,NATALIE S ?MR#: [id number] ?? : 1985 ?Acct:[id number] ?? Age/Sex: 40 / F ?ADM Date: 06/14/25 ?? Loc: US ? Attending Dr: Krupa Olmstead ? Ordering Physician: Krupa Olmstead ?? Date of Service: 06/14/25 ?? Procedure(s): US OB growth ?? Accession Number(s): [id number] ? cc: Krupa Olmstead; Lynn Jose D.O. ? [facility] ? [facility]. [facility] ? [place] [address] ? Patient Name: ?? NATALIE CESPEDES ? MRN: [facility]:[id number] ? date: 1985 ?Sex: F ?? Assigned Patient Location: ?? Current Patient Location: ?? Accession/Order Number: [id number] ?? Exam Date: 06/14/2025 ??10:58 ?Report Date: [...] Impression dictated by: Jacob Almanza Jr., D.O. ??06/14/2025 12:01 PM ? Dictation Location: RADIO-PC-22 ? Electronically authenticated by: [id number] ??Y ?? Date: 06/14/2025 ??12:01 ? Dictated By: ?Jacob Almanza M.D. ? Signed By: ?06/14/25 1204 ? DD/ 1201 ? TD/TT: ? Phlebotomy Support Tech: Procedure Note Radiology, Radiologist, - 06/14/[address] [address] Ultrasound Report Signed Patient: NATALIE CESPEDES SMR#: [id number] : 1985Acct:[id number] Age/Sex: 40 / FADM Date: 06/14/25 Loc: US Attending Dr: Krupa Olmstead Ordering Physician: Krupa Olmstead Date of Service: 06/14/25 Procedure(s): US OB growth Accession Number(s): [id number] cc: Krupa Olmstead; Lynn Jose D.O. The [address] [address] Patient Name: NATALIE CESPEDES MRN: [id number] date: 1985 Sex: F Assigned Patient Location: US Current Patient Location: US Accession/Order Number: [id number] Exam Date: 06/14/2025 10:58 Report Date: 06/14/2025 [...] by dating. Impression dictated by: Jacob Almanza Jr., D.O. 06/14/2025 12:01 PM Dictation Location: [place] [address] Electronically authenticated by: [id number] Y Date: 2:01 Dictated By: Jacob Almanza M.D. Signed By:06/14/25 1204 DD/ 1201 TD/TT: Phlebotomy Support Tech: Authorizing ProviderResult TypeResult StatusKrupa Olmstead PACLCARIL[facility] IMAGINGFinal Result * US renal complete (05/11/2025 12:52 PM EDT)Anatomical RegionLateralityModality KidneyUltrasoundSpecimen (Source)Anatomical Location / LateralityCollection Method / VolumeCollection TimeReceived Time05/11/2025 12:52 PM EDT Impressions 05/11/2025 12:55 PM EDT There is mild hydronephrosis. ? Bilateral ureteral jets are noted. ? Impression dictated by: Deshaun Alanis M.D. ??05/11/2025 12:52 PM ? Dictation Location: RADIO-PC-24 ? Tech: Chantell Lou ? Transcribed By: ? PWS ?05/11/25 1252 ? Dictated By: ?Deshaun Alanis II, MD ?05/11/25 1252 ? Signed By: <Electronically signed by Deshaun Alanis II, MD in OV> ? 05/11/25 1252 Narrative 05/11/2025 12:55 PM EDT [facility] [place] ?[address] ? [place] [address] ? Ultrasound Report ? Signed ? Patient: Natalei Cespedes S ?MR#: [id number] ?? [id number] ? : 1985 ?Acct:[id number] ? Age/Sex: 40 / F ?ADM Date: 09/01/25 ? Loc: 3E ?Room: ??8K5652-6 ?Type: REG CLI ?? Attending Dr: Shaun [...] Procedure Note Deshaun Alanis MD - 05/11/2025 [facility] [place] [address] Ultrasound Report Signed Patient: Natalie Cespedes SMR#: [id number] : 1985Acct:[id number] Age/Sex: 40 / FADM Date: 05/10/25 Loc: 3E Room: [id number]: REG CLI Attending Dr: Shaun Rebollar MD [...] Alanis M.D. 05/11/2025 12:52 PM Dictation Location: [place] [address] Tech: Chantell Selenajosh Transcribed By: LAURA 05/11/25 1252 Dictated By: Deshaun Alanis II, MD 05/11/25 1252 Signed By: <Electronically signed by Deshaun Alanis II, MD inOV> 05/11/25 1252 Authorizing ProviderResult TypeResult StatusShaun Rebollar MDIMG US PROCEDURES Final Result * (ABNORMAL) CBC auto differential (05/10/2025 11:10 PM EDT)ComponentValueRef RangeTest MethodAnalysis TimePerformed AtPathologist ZeioncnftZNO01.3(H)3.8 - 11.6 [CFU]/mL05/10/2025 11:25 PM [facility] CtrUNCORRECTED WHITE BLOOD COUNT19.3(H)3.8 - 11.6 10*3/uL05/10/2025 11:25 PM [facility] CtrRBC4.053.60 - 5.00 10*6/uL05/10/2025 11:25 PM [facility] BfdGSXLKCHXUQ25.3(L)11.8 - 15.4 g/dL05/10/2025 11:25 PM EDT [facility] XvxGXMTWZZLUI69.0(L)34.0 - 46.4 %05/10/2025 11:25 PM [facility] IqgLNW30.480 - 100 fL05/10/2025 11:[facility] PM [facility] AidQRH67.924.7 - 34.3 pg05/10/2025 11:25 PM [facility] GeuTEQW21.232.0 - 35.0 g/dL05/10/2025 11:25 PM ED[facility] CtrRED CELL DISTRIBUTION WIDTH, RDW14.611.9 - 15.3 %05/10/2025 11:25 PM [facility] CtrPLATELET NEYGZ254867 - 450 10*3/uL05/10/2025 11:25 PM [facility] CtrMEAN PLATELET VOLUME, MPV7.36.3 - 10.7 fL05/10/2025 11:25 PM [facility] CtrNEUTROPHILS, %91.2. %05/10/2025 11:25 PM [facility] LYMPHOCYTES, %4.8. %05/10/2025 11:25 PM [facility] MONOCYTE/MACROPHAGE, %3.2. %05/10/2025 11:25 PM [facility] CtrEOSINOPHILS, %0.4. %05/10/2025 11:25 PM [facility] BASOPHILS, %0.4. %05/10/2025 11:25 PM [facility] CtrNRBC0.1 0 - 0.5 /100{WBC}05/10/2025 11:25 PM [facility] XMJQORPXISE78.6(H)1.8 - 7.7 10*3/uL05/10/2025 11:25 PM [facility] CtrLYMPHOCYTES0.9(L)1.00 - 4.8 10*3/uL05/10/2025 11:25 PM [facility] CtrMONOCYTES0.60.0 - 0.8 10*3/uL05/10/2025 11:25 PM [facility] CtrEOSINOPHILS0.10.0 - 0.45 10*3/uL05/10/2025 11:25 PM [facility] CtrBASOPHILS0.10.0 - 0.2 10*3/uL05/10/2025 11:25 PM [facility] CtrSpecimen (Source)Anatomical Location / LateralityCollection Method / VolumeCollection TimeReceived TimeBlood (Blood)05/10/2025 11:10 PM EDT05/10/2025 11:18 PM EDT Narrative Authorizing ProviderResult TypeResult StatusShaun MONTILLA BLOOD ORDERABLESFinal ResultPerforming OrganizationAddressCity/State/ZIP CodePhone Number [facility] [address] [place] [address], [facility] [address] [place] [address] * Lipase (05/10/2025 11:10 PM EDT)ComponentValueRef RangeTest MethodAnalysis TimePerformed AtPathologist ZpohwqouaQLTXHY79.011.0 - 82.0 U/L05/10/2025 11:45 PM EDTuscarawas [facility] CtrSpecimen (Source)Anatomical Location / LateralityCollection Method / VolumeCollection TimeReceived TimeOther Topography unknown / Haouayu5605/10/2025 11:10 PM EDT05/10/2025 11:18 PM EDT Narrative Authorizing ProviderResult TypeResult StatusShaun MONTILLA BLOOD ORDERABLESFinal ResultPerforming OrganizationAddressty/State/ZIP CodePhone Number [facility] [address] [place] [address], [facility] [address] [place] [address] * Amylase (05/10/2025 11:10 PM EDT)ComponentValueRef RangeTest MethodAnalysis TimePerformed AtPathologist JagmskfavUAOTVLQ0696 - 103 U/L05/10/2025 11:45 PM EDTuscarawas Hospital CtrSpecimen (Source)Anatomical Location / LateralityCollection Method / VolumeCollection TimeReceived TimeOther Topography unknown / Zxbuwfs3405/10/2025 11:10 PM EDT05/10/2025 11:18 PM EDT Narrative Authorizing ProviderResult TypeResult StatusShaun MONTILLA BLOOD ORDERABLESFinal ResultPerforming OrganizationAddressCity/State/ZIP CodePhone Number [facility] [address] [place] [address], [facility] [address] [place] [address] * (ABNORMAL) Comprehensive metabolic panel (05/10/2025 11:10 PM EDT)Component ValueRef RangeTest MethodAnalysis TimePerformed AtPathologist SignatureGlucose 111(H)70 - 100 mg/dL05/10/2025 11:45 PM [facility] Comment: Random Glucose Reference Range is dependent on time and content of last meal. Glucose of more than 200 mg/dL in a nonstressed, ambulatory subject supports the diagnosis of Diabetes Mellitus. ADA recommended reference range AHY174 - 25 mg/dL05/10/2025 11:45 PM [facility] CtrCREATININE 0.680.60 - 1.20 mg/dL05/10/2025 11:45 PM [facility] ESTIMATED GFR>60. 11:45 PM [facility] [id number] 136 - 145 mmol/L05/10/2025 11:45 PM [facility] CtrPotassium, Bld3.93.5 - 5.1 mmol/L05/10/2025 11:45 PM [facility] [id number] - 107 mmol/L05/10/2025 11:45 PM [facility] Carbon Jeshhxb31.3(L)21.0 - 31.0 mmol/L05/10/2025 11:45 PM [facility] CtrAnion Gap14.66.0 - 15. 11:45 PM [facility] CtrCalcium9.18.6 - 10.3 mg/dL05/10/2025 11:45 PM [facility] CtrTOTAL PROTEIN6.3(L)6.4 - 8.9 g/dL05/10/2025 11:45 PM [facility] CtrALBUMIN LEVEL3.63.5 - 5.7 g/dL05/10/2025 11:45 PM EDT [facility] CtrGLOBULIN2.7g/dL05/10/2025 11:45 PM [facility] CtrALBUMIN/GLOBULIN RATIO1.309 11:45 PM [facility] CtrBILIRUBIN,TOTAL0.40.3 - 1.0 mg/dL05/10/2025 11:45 PM EDT [facility] CtrASPARTATE AMINO DLSZHGFGCLW2193 - 39 U/L05/10/2025 11:45 PM [facility] CtrALANINE YNHJUILOJUZHXGUD296 - 52 U/L 05/10/2025 11:45 PM [facility] CtrALKALINE ASJRGLFQJER4283 - 104 U/L05/10/2025 11:45 PM [facility] CtrCREATININE CLR CALC XWDXBPUE122.8705/10/2025 11:45 PM [facility] CtrSpecimen (Source)Anatomical Location / LateralityCollection Method / VolumeCollection TimeReceived TimeOtherTopography unknown / Spwziff0605/10/2025 11:10 PM EDT 05/10/2025 11:18 PM EDT Narrative Authorizing ProviderResult TypeResult StatusShaun MONTILLA BLOOD ORDERABLESFinal ResultPerforming OrganizationAddressCity/State/ZIP CodePhone Number [facility] [address] [place] [address], [facility] [address] [place] [address] * fibronectin (05/10/2025 11:05 PM EDT)ComponentValueRef RangeTest Method Analysis TimePerformed AtPathologist SignatureFETAL FIBRONECTINNegative Wwsxumil02/02/2025 12:02 AM [facility] CtrSpecimen (Source) Anatomical Location / LateralityCollection Method / VolumeCollection Time Received TimeOtherTopography unknown / Onszryr6805/10/2025 11:05 PM EDT 05/10/2025 11:19 PM EDT Narrative [facility] - 05/11/2025 12:02 AM EDT Comment patients 22 - 34 6/7 weeks prior to vaginal exam Authorizing ProviderResult TypeResult StatusShaun MONTILLA BODY FLUIDS AND STOOLS ORDERABLESFinal ResultPerforming OrganizationAddressCity/State/ZIP Code Phone Number [facility] [address] [place] [address], [facility] [address] [place] [address] * (ABNORMAL) AEROBIC DAVE CHARGE (NMIC56) (05/10/2025 10:30 PM EDT)ComponentValue Ref RangeTest MethodAnalysis TimePerformed AtPathologist SignatureAMIKACIN<16 (S)05/13/2025 7:51 AM [facility] CtrAMOXACILLIN/K CLAVULANATE<8/4(S)05/13/2025 7:51 AM [facility] AMPICILLIN>16(R)05/13/2025 7:51 AM [facility] AMPICILLIN/PDTZDFYLF17/8(I)05/13/2025 7:51 AM [facility] CtrAZTREONAM<4(S)05/13/2025 7:51 AM [facility] CtrCEFAZOLIN <2(S)05/13/2025 7:51 AM [facility] CtrCEFEPIME<2(S) 05/13/2025 7:51 AM [facility] CtrCEFTAZIDIME<1(S)05/13/2025 7:51 AM [facility] CtrCEFTAZIDIME/AVIBACTAM<4(S)05/13/2025 7:51 AM [facility] CtrCEFTOLOZANE/TAZOBACTAM<2(S) 05/13/2025 7:51 AM [facility] CtrCEFTRIAXONE<1(S)05/13/2025 7:51 AM [facility] CtrCEFUROXIME<4(S)05/13/2025 7:51 AM [facility] CtrCIPROFLOXACIN<0.25(S)05/13/2025 7:51 AM [facility] CtrERTAPENEM<0.5(S)05/13/2025 7:51 AM [facility] CtrGENTAMICIN<2(S)05/13/2025 7:51 AM [facility] CtrLEVOFLOXACIN<0.5(S)05/13/2025 7:51 AM [facility] CtrMEROPENEM<1(S)05/13/2025 7:51 AM [facility] MEROPENEM/VABORBACTAM<2(S)05/13/2025 7:51 AM [facility] NITROFURANTOIN<32(S)05/13/2025 7:51 AM [facility] PIPERACILLIN/TAZOBACTAM<8(S)05/13/2025 7:51 AM [facility] CtrTETRACYCLINE<4(S)05/13/2025 7:51 AM [facility] TIGECYCLINE<2(S)05/13/2025 7:51 AM [facility] CtrTOBRAMYCIN <2(S)05/13/2025 7:51 AM [facility] TRIMETHOPRIM/SULFAMETHOXAZOLE<0.5/9.5(S)05/13/2025 7:51 AM [facility] CtrSpecimen (Source)Anatomical Location / Laterality Collection Method / VolumeCollection TimeReceived TimeUrineUrine specimen obtained by clean catch procedure / Yxkgfqj0605/10/2025 10:30 PM EDT05/10/2025 10:55 PM EDTComment:Clean-Voided Midstream Narrative Authorizing ProviderResult TypeResult StatusShaun Rebollar MDFIRELANDSFinal ResultPerforming OrganizationAddressCity/State/ZIP CodePhone Number [facility] [address] [place] [address], [facility] [address] [place] [address] * (ABNORMAL) Urinalysis with reflex microscopic (05/10/2025 10:30 PM EDT) ComponentValueRef RangeTest MethodAnalysis TimePerformed AtPathologist SignatureCOLOR,PIAWJXgvqlvWjwzen65/01/2025 10:59 PM [facility] CtrAPPEARANCE,URINETurbid(AA)Clear05/10/2025 10:59 PM [facility] CtrSPECIFICY GRAVITY,URINE1.0221.001 - 1.6210405/10/2025 10:59 PM [facility] CtrPH,URINE5.55.0 - 9. 10:59 PM [facility] CtrLEUKOCYTE ESTERASE,URINE4+Eqmblkes37/01/2025 10:59 PM [facility] CtrNITRITE,URINENegativeNegative 05/10/2025 10:59 PM [facility] CtrPROTEIN,GLHBY802Zubvrefa mg/dL05/10/2025 10:59 PM [facility] CtrGLUCOSE,URINE (UA) NormalNormal mg/dL05/10/2025 10:59 PM [facility] KETONES,URINE2+Wfnsaqpd58/01/2025 10:59 PM [facility] UROBILINOGEN,URINENormalNormal mg/dL05/10/2025 10:59 PM [facility] CtrBILIRUBIN,UIHNJTxonbcdsXazrabua74/01/2025 10:59 PM [facility] CtrOCCULT BLOOD,URINE2+Eujbnkvj59/01/2025 10:59 PM T [facility] CtrRBC,EEZIT68-547 - 4 [HPF]05/10/2025 11:13 PM [facility] CtrWBC,URINEInnumerable0 - 4 [HPF]05/10/2025 11:13 PM [facility] CtrWBC CLUMP, URINEManyNone Seen [LPF] 05/10/2025 11:13 PM [facility] CtrSQUAMOUS EPITHELIAL CELL,URINE1-20 - 2 [HPF]05/10/2025 11:13 PM [facility] BACTERIA,URINE2+None Seen [HPF]05/10/2025 11:13 PM [facility] CtrHYALINE CASTS,URINENone0 - 8 [LPF]05/10/2025 11:13 PM [facility] CtrMUCUS,URINE4+(AA)[LPF]05/10/2025 11:13 PM [facility] CtrSpecimen (Source)Anatomical Location / Laterality Collection Method / VolumeCollection TimeReceived WmzgTvhat50/01/2025 10:30 PM EDT05/10/2025 10:55 PM EDT Narrative [facility] - 05/10/2025 11:13 PM EDT Comment c/o urinary symptoms or increased blood pressure Name Collection Type:: Clean-Voided Midstream Authorizing ProviderResult TypeResult StatusShaun Rebollar MDLAB URINE ORDERABLESFinal ResultPerforming OrganizationAddressCity/[facility] CodePhone Number [facility] [address] [place] [address], [facility] [address] [place] [address] * Urine culture (05/10/2025 10:30 PM EDT)ComponentValueRef RangeTest Method Analysis TimePerformed AtPathologist SignatureFRMC ORGANISMEscherichia coli 05/13/2025 7:51 AM [facility] CtrCOLONY COUNT>100,000 05/13/2025 7:51 AM [facility] CtrSpecimen (Source) Anatomical Location / LateralityCollection Method / VolumeCollection Time Received TimeUrineUrine specimen obtained by clean catch procedure / Unknown 05/10/2025 10:30 PM EDT05/10/2025 10:55 PM EDTComment:Clean-Voided Midstream Narrative Authorizing ProviderResult TypeResult StatusShaun MONTILLA MICROBIOLOGY - GENERAL ORDERABLESFinal ResultPerforming OrganizationAddressCity/[facility]/ZIP Code Phone Number [facility] [address] [place] [address], [facility] [address] [place] [address] * US OB PLACENTA (04/15/2025 4:27 PM EDT)Anatomical RegionLateralityModality OtherSpecimen (Source)Anatomical Location / LateralityCollection Method / VolumeCollection TimeReceived Time04/15/2025 4:27 PM EDT Narrative 04/15/2025 4:30 PM EDT [facility] ?[address] ? [place] [address] ? Ultrasound Report ? Signed ? Patient: NATALIE CESPEDES ?MR#: [id number] ?? : 1985 ?Acct:[id number] ?? Age/Sex: 40 / F ?ADM Date: ?? Loc: [facility] ??250-1 ? Attending Dr: Candice Anderson D.O. ? Ordering Physician: Candice Anderson D.O. ?? Date of Service: 04/15/25 ?? Procedure(s): US OB placenta ?? Accession Number(s): [id number] ? cc: Candice Anderson D.O.; Lynn Jose D.O. ? [facility] ? [address] ? [place] [address] ? Patient Name: ?? NATALIE CESPEDES ? MRN: [facility]:[id number] ? date: 1985 ?Sex: F ?? Assigned Patient Location: FB ?? Current Patient Location: ? Accession/Order Number: [id number] ?? Exam Date: 04/15/2025 ??16:26 ?Report Date: [...] Dictation Location: RADIO-PC-19 ? Electronically authenticated by: [id number] ??Y ?? Date: 04/15/2025 ??16:27 ? Dictated By: ?Jacob Almanza M.D. ? Signed By: ?04/15/25 1630 ? DD/ 1627 ? TD/TT: ? Phlebotomy Support Tech: Procedure Note Radiology, Radiologist, - 04/16/2025 [place] [address] Ultrasound Report Signed Patient: NATALIE CESPEDES [facility]#: [id number] : 1985Acct:[id number] Age/Sex: 40 / FADM Date: Loc: [facility] 250-[address]: Candice Anderson D.O. Ordering Physician: Candice Anderson D.O. Date of Service: 04/15/25 Procedure(s): US OB placenta Accession Number(s): [id number] cc: Candice Anderson D.O.; Lynn Jose D.O. The [address] [address] Patient Name: NATALIE CESPEDES MRN: [id number] date: 1985 Sex: F Assigned Patient Location: [facility] Current Patient Location: Accession/Order Number: [id number] Exam Date: 04/15/2025 16:26 Report Date: 04/15/2025 [...] Jr., D.O. 04/15/2025 4:27 PM Dictation Location: [place] [address] Electronically authenticated by: [id number] Y Date: 6:27 Dictated By: Jacob Almanza M.D. Signed By:04/15/25 1630 DD/ 1627 TD/TT: Phlebotomy Support Tech: Authorizing ProviderResult TypeResult StatusCorereba Anderson DOCLINISYNC IMAGINGFinal Result * US OB CERVICAL LENGTH (04/15/2025 4:27 PM EDT)Anatomical RegionLaterality ModalityOtherSpecimen (Source)Anatomical Location / LateralityCollection Method / VolumeCollection TimeReceived Time04/15/2025 4:27 PM EDT Narrative 04/15/2025 4:30 PM EDT [facility] ?[address] ? [place] [address] ? Ultrasound Report ? Signed ? Patient: NATALIE CESPEDES S ?MR#: [id number] ?? : 1985 ?Acct:[id number] ?? Age/Sex: 40 / F ?ADM Date: ?? Loc: [facility] ??250-1 ? Attending Dr: Candice Anderson D.O. ? Ordering Physician: Candice Anderson D.O. ?? Date of Service: 04/15/25 ?? Procedure(s): US OB cervical length ?? Accession Number(s): [id number] ? cc: Candice Anderson D.O.; Lynn Jose D.O. ? [facility] ? [address] ? [place] [address] ? Patient Name: ?? NATALIE CESPEDES ? MRN: [facility]:[id number] ? date: 1985 ?Sex: F ?? Assigned Patient Location: [facility] ?? Current Patient Location: ? Accession/Order Number: [id number] ?? Exam Date: 04/15/2025 ??16:26 ?Report Date: [...] Dictation Location: RADIO-PC-19 ? Electronically authenticated by: [id number] ??Y ?? Date: 04/15/2025 ??16:27 ? Dictated By: ?Jacob Almanza M.D. ? Signed By: ?04/15/25 1630 ? DD/ 1627 ? TD/TT: ? Phlebotomy Support Tech: Procedure Note Radiology, Radiologist, - 04/16/2025 [place] [address] Ultrasound Report Signed Patient: NATALIE CESPEDES [facility]#: [id number] : 1985Acct:[id number] Age/Sex: 40 / FADM Date: Loc: [facility] 250-[address]: Candice nAderson D.O. Ordering Physician: Candice Anderson D.O. Date of Service: 04/15/25 Procedure(s): US OB cervical length Accession Number(s): [id number] cc: Candice Anderson D.O.; Lynn Jose D.O. The [place] [address] Patient Name: NATALIE CESPEDES MRN: [id number] date: 1985 Sex: F Assigned Patient Location: [facility] Current Patient Location: Accession/Order Number: [id number] Exam Date: 04/15/2025 16:26 Report Date: 04/15/2025 [...] Jr., D.O. 04/15/2025 4:27 PM Dictation Location: [place] [address] Electronically authenticated by: [id number] Y Date: 6:27 Dictated By: Jacob Almanza M.D. Signed By:04/15/25 1630 DD/ 1627 TD/TT: Phlebotomy Support Tech: Authorizing ProviderResult TypeResult StatusCorey Justin DOCLINISYNC IMAGINGFinal Result * (ABNORMAL) TB URINE MICROSCOPIC ONLY (04/15/2025 2:55 PM EDT)ComponentValue Ref RangeTest MethodAnalysis TimePerformed AtPathologist SignatureTBH UIG73-24 (A)NONE SEEN #/HPFTBHTBH RBC0-20 - 2 #/HPFTBHBACTERIA URINELARGE(A)NONE SEEN #/HPFTBHMUCUS URINEMODERATE(A)NONE SEENTBHSQUAMOUS EPITHELIAL CELL URINE MODERATE(A)NONE/RARE #/LPFTBHCRYSTALS SEEN?None SeenNone Seen #/HPFTBHCAST SEEN?NONE SEENNONE SEEN #/LPFTBHURINE CULTURE INDICATEDYES-LCTBHSpecimen (Source)Anatomical Location / LateralityCollection Method / VolumeCollection TimeReceived Time04/15/2025 2:55 PM EDT04/15/2025 3:05 PM EDT Narrative [facility] - 04/15/2025 3:33 PM EDT Authorizing ProviderResult TypeResult StatusCorey Justin DOCLINISYNCFinal Result Performing OrganizationAddressCity/State/ZIP CodePhone Number [facility] TB * (ABNORMAL) TBH UA (CLEAN/CATCH) PLAN COORDINATOR/MICRO IF IND. (04/15/2025 2:55 PM EDT) ComponentValueRef RangeTest MethodAnalysis TimePerformed AtPathologist SignatureCOLOR URINELT. YELLOWYELLOWTBHCLARITY URINESL CLOUDYCLEARTBHSPECIFIC GRAVITY URINE1.0151.005 - 1.025TBHPH URINE6.55.0 - 9.0TBHPROTEIN URINETRACE NEG/TRACE mg/dLTBHGLUCOSE URINE UANEGATIVENEGATIVE mg/dLTBHBILIRUBIN URINE NEGATIVENEGATIVETBHKETONES URINENEGATIVENEGATIVE mg/dLTBHBLOOD URINENEGATIVE NEGATIVETBHNITRITE URINEPOSITIVE(A)NEGATIVETBHUROBILINOGEN URINE1.00.2 - 1.0 EU/dLTBHLEUKOCYTE ESTERASE URINESMALL(A)NEGATIVETBHURINE MICROSCOPIC INDICATED YESTBHSpecimen (Source)Anatomical Location / LateralityCollection Method / VolumeCollection TimeReceived Time04/15/2025 2:55 PM EDT04/15/2025 3:05 PM EDT N[facility]ative [facility] - 04/15/2025 3:33 PM EDT Authorizing ProviderResult TypeResult StatusCorey Justin DOCLINISYNCFinal Result Performing OrganizationAddressCity/State/ZIP CodePhone Number [facility] * Pap Smear (02/09/2025 12:00 AM EDT)Specimen (Source)Anatomical Location / LateralityCollection Method / VolumeCollection TimeReceived TimeSwabCervical swab / Unknown Narrative Authorizing ProviderResult TypeResult StatusAmy Ishan PALAB CYTOLOGY ORDERABLES Final ResultPerforming OrganizationAddressCity/State/ZIP CodePhone Number EXTERNAL LAB from Last 3 Months or Most Recently Relevant to Health Maintenance Insurance
--- OUTSIDE RECORDS SUMMARY | 2025-07-02 08:22 | XMS_ITS | Encounter Summary ---
Author Organization [facility] Address [address] [place] [address] Care Team Providers Care Home Mission Worker Name Role Phone Unavailable Primary Care Provider Unavailabl e Encounter Details DateTypeDepartmentCare Team (Latest Contact Info)Htwgnoogcba63/20/2025amboo flowsheet [facility] [address] [place] [address] Greg Anderson DO [address] [place], [place] [address], [place] [address] Social History Tobacco UseTypesPacks/DayYears UsedDateSmoking Tobacco: Never Assessed Estimated Date of YjiwwiumIjhscemcGkw88/20/2025Based on UltrasoundSex and Gender InformationValueDate RecordedSex Assigned at IbddxWxnfwf72/21/2025 1:58 PM EST Legal HtkUtyjdp50/15/2023 6:58 PM EDTGender UuucjtduWntjok65/21/2025 1:58 PM EST Sexual BxehhcyfuenXhbfdqrf99/21/2025 1:58 PM ESTdocumented as of this encounter Plan of Treatment DateTypeDepartmentCare Team (Latest Contact Info)Xglutksruhl42/27/2025 1:30 PM EDTRoutine [facility] [address] [address] [place] [address] Greg Anderson, DO [address] [place], [facility]11 documented as of this encounter Visit Diagnoses Not on filedocumented in this encounter
--- OUTSIDE RECORDS SUMMARY | 2025-07-02 08:22 | XMS_ITS | Encounter Summary ---
Author Organization [facility] Address [address] [facility] [place] [address] Care Team Providers Care Explosive Operator Grenade Name Role Phone Unavailable Primary Care Provider Unavailabl e Encounter Details DateTypeDepartmentCare Team (Latest Contact Info)Oyqfnafvlqv51/22/2025bstract [facility] [address] [place] [address] Hina Moura [place] Social History Tobacco UseTypesPacks/DayYears UsedDateSmoking Tobacco: Never Assessed Estimated Date of TffutminLqzhmgguFmt58/20/2025Based on UltrasoundSex and Gender InformationValueDate RecordedSex Assigned at EbjlyNtlgbg61/21/2025 1:58 PM EST Legal QdyVrveuz49/15/2023 6:58 PM EDTGender HdpyqkajQazdvw91/21/2025 1:58 PM EST Sexual PnmpbmgsdfmTahznqaj59/21/2025 1:58 PM ESTdocumented as of this encounter Plan of Treatment DateTypeDepartmentCare Team (Latest Contact Info)Xdmtsiplgli79/27/2025 1:30 PM EDTRoutine [facility] [address] [address] [place] [address] Greg Anderson DO [address] [place], [place] [address] documented as of this encounter Visit Diagnoses Not on filedocumented in this encounter
--- OUTSIDE RECORDS SUMMARY | 2025-07-02 08:23 | XMS_ITS | Clinical Summary ---
Author Organization [facility] Address [address] [facility], [address] [place] [address] Care Team Providers Care Construction Person Name Role Phone Unavailable Primary Care Provider [...] InformationValueDate RecordedSex Assigned at BirthNot on fileLegal NdcWkvdpo19/21/2015 4:35 PM EDTGender IdentityNot on fileSexual OrientationNot on file Last Filed Vital Signs Vital SignReadingTime TakenCommentsBlood Hkytyfkk628/8703/30/2016 3:03 PM EDT Eeznl90584/22/2016 3:03 PM HFADdyfbhdewhx95.7 ??C (98.1 ??F)03/30/2016 3:03 PM EDTRespiratory Tgck855703/30/2016 3:03 PM EDTOxygen Piglocxtvm51%03/30/2016 3:03 PM EDTInhaled Oxygen Concentration--Tkkmuo65.4 kg (186 lb)03/30/2016 3:03 PM EDT Gprfcv290.6 cm (5' 4 )03/30/2016 3:03 PM EDTBody Mass Index31.9303/30/2016 3:03 PM EDT Plan of Treatment Not on file
--- OUTSIDE RECORDS SUMMARY | 2025-07-02 08:23 | XMS_ITS | Clinical Summary ---
Author Organization [employer] [facility] tem Address [id number] [place] [address] Care Team Providers Care Hemmer Lockstitch Name Role Phone Unavailable Primary Care Provider Unavailabl e Allergies Active AllergyReactionsCriticalityNoted DateCommentsSulfa (Sulfonamide Antibiotics)Gfpdzbuc02/19/2025 Medications MedicationSigDispense QuantityRefillsLast FilledStart DateEnd DateStatus omeprazole [...] Multigravida of advanced maternal age in second sorprolhi03/03/2025Estimated Date of DeliveryCommentsYes 07/29/2025ased on Ultrasound Encounters DateTypeDepartmentCare ThndJecywcqtqoj99/11/1901Exkmai67/14/4501Dovwxo93/30/2025 Telephone Maternal- Medicine at [facility] [address] [place] [address] Lilly Rust, FANY from Last 3 Months Family History Medical HistoryRelationNameCommentsHypertensionFatherKidney zgtktriMzveqhB5NP PiygbdJ9RDUxzrzvak GrandfatherBreast cancerMaternal GrandmotherRelationName StatusCommentsFatherDeceasedMaternal GrandfatherMaternal Grandmother Social [...] money to get more.Never True03/11/2025Estimated Date of QyusphtqIlspbzxyBia90/20/2025ased on UltrasoundSex and Gender InformationValue Date RecordedSex Assigned at BirthNot on fileLegal GdbTobufk17/15/2025 11:20 AM EDTGender IdentityNot on fileSexual OrientationNot on file Last Filed Vital Signs Vital SignReadingTime TakenCommentsBlood Vlymvrep421/8307 9:25 AM EDT Ighrn524503/11/2025 9:25 AM EDTTemperature--Respiratory Rate--Oxygen Saturation-- Inhaled Oxygen Concentration--[place]030.2 kg (269 lb 6.4 oz)03/11/2025 9:25 AM SQPPbphia927.6 cm (5' 4 )03/11/2025 9:25 AM EDTBody Mass Index46.24003/11/2025 9:25 AM EDT Plan of Treatment Health MaintenanceDue DateLast DoneCommentsDepression Wztqhhamr98/23/1999Adult BMI Follow Up Plan2005DTaP,Tdap and Td Vaccines (1 - Tdap)2006COVID- 19 Vaccine (2 - season)/10/2020Influenza Dstqkvn0705/10/2025 06/15/2022, 05/23/2021dult BMI Sqjblgrav80Tobacco Screening Pap Smear06806 Medical Devices Not on file Procedures Procedure NamePriorityDate/TimeAssociated DiagnosisCommentsUS MFM OB FOLLOW-UP, 1 LFZFZQvsumcd13/11/2025 3:06 PM EDT Choroid plexus cyst of fetus in miranda Multigravida of advanced maternal age in second trimester Diet controlled gestational diabetes mellitus (GDM) in second trimester Hx of essential hypertension US MFM OB FOLLOW-UP, 1 IJUJHRdrhfnm02/14/2025 3:22 PM EDT Choroid plexus cyst of [...] ESTRADA : 1985 SEX: F Accession Number: [id number] ORDERING PHYSICIAN: CANDICE ANDERSON REFERRING PHYSICIAN: CANDICE ANDERSON Coding Procedures ? 33940: Follow-up Ultrasound, per fetus Indication , Screening for follow-up survey, AMA- Supervision of elderly, Chronic hypertension affecting , Obesity in , History OB History ? 2. Para 0 ? [id number] Maternal Assessment Physical Exam ??Height 163 cm, [...] (oz) ? 8 oz EFW by: ?Hadlock (GPI-OQ-VV-FL) Extended Tibia ??49.6 mm 29w 5d 43% [employer] ? 4.4 mm CM ? 7.0 mm [...] Heart/Thorax: 4-chamber view. RVOT view. LVOT view. 7-rtunpc-owwzdgi view. Situs. Ductal arch view.Interventricular ? septum. [...] MVP measures 6.2 cm. Recommendations Please see [facility] recommendations from prior clinical and/or ultrasound report documentation. Subsequent follow up or other follow up as clinically determined by primary OB provider unless otherwise specified by [facility]. Results forwarded to ordering provider so they can follow up with the patient as necessary. Procedure Note Sam Sultana MD - 05/20/2025 NAME: RUBINA ESTRADA : 1985 SEX: F Accession Number: [id number] ORDERING PHYSICIAN: CANDICE ANDERSON REFERRING PHYSICIAN: CANDICE ANDERSON Coding Procedures 95332: Follow-up Ultrasound, per fetus Indication , Screening for follow-up survey, AMA- Supervision of elderly, Chronic hypertension affecting , Obesity in , History OB History 2. Para 0 [id number] Maternal Assessment Physical Exam Height 163 cm, [...] EFW (oz) 8 oz EFW by: Hadlock (YMR-UL-ZV-FL) Extended Tibia 49.6 mm 29w 5d 43% [employer] 4.4 mm CM 7.0 mm 51% [...] Heart/Thorax: 4-chamber view. RVOT view. LVOT view. 7-hrqvud-ioahkgb view.Situs. Ductal arch view. Interventricular septum. Great [...]
[2025-07-02 08:26] VITALS: BP 141/90; PULSE 93
[2025-07-02 08:48] VITALS: BP 134/89; PULSE 86
== END 2025-07-02 08:50 | disposition home or self-care (01) ==
LOC: FBCO 08:19 → FBC 08:21
PROVIDERS: PCP Family Medicine; Visit Provider Obstetrics & Gynecology
DX: O24.419 Gestational diabetes mellitus in pregnancy, unspecified control (principal)
CPT/HCPCS: 59025

== ENCOUNTER 2025-07-06 09:28 | Outpatient (OUT) | payer BC, SELFPAY ==
--- OUTSIDE RECORDS SUMMARY | 2025-06-28 09:40 | XMS_ITS | Encounter Summary ---
Author Organization [facility] Address [address] [facility] [place] [address] Care Team Providers Care Assistant Football Coach Name Role Phone Unavailable Primary Care Provider Unavailabl e Reason for Referral * (Routine) - IncompleteSpecialtyDiagnoses / ProceduresReferred By Contact Referred To ContactRadiology Diagnoses Chronic hypertension Palpitations Procedures Echocardiogram 2D complete Greg Anderson DO [address] [place] [address] Phone: tel: fax: Referral IDStatusReasonStart DateExpiration DateVisits RequestedVisits [id number] Perform Procedure / Reason for Visit * ReasonCommentsRoutine Visit Encounter Details DateTypeDepartmentCare Team (Latest Contact Info)Zypyltnpemj86/20/2025 9:40 AM EDTRoutine [facility] [address] [place] [phone] Greg Anderson DO [address] [place] [address] 35 weeks gestation of ([facility]); Third trimester ([facility]); Gestational diabetes mellitus (GDM), antepartum, gestational diabetes method of control unspecified([facility]); Chronic hypertension; H/O miscarriage, currently ([facility]); UTI symptoms; Palpitations; Heartburn during , antepartum ([facility]) Social History Tobacco UseTypesPacks/DayYears UsedDateSmoking Tobacco: Never Assessed Estimated Date of BkcbywriEtvmwaesSpg96/20/2025Based on UltrasoundSex and Gender InformationValueDate RecordedSex Assigned at CxdvfRoucqp02/21/2025 1:58 PM EST Legal DtmReigdz01/15/2023 6:58 PM EDTGender CqvwnjdfMogtsp21/21/2025 1:58 PM EST Sexual JqcyjanknbqFiylwkpa34/21/2025 1:58 PM ESTdocumented as of this encounter Last Filed Vital Signs Vital SignReadingTime TakenCommentsBlood Ypmeqsnm032/801 9:58 AM EDT Pulse--Temperature--Respiratory Rate--Oxygen Saturation--Inhaled Oxygen Concentration--Rblufd558 kg (269 lb)06/28/2025 9:58 AM EDTHeight--Body Mass [...] nursing note reviewed. Exam conducted with a night assistant present. Vitals: There is no height or weight on file to calculate BMI. BP: 120/80 No LMP recorded. Patient is . Assessment/Plan ICD-10-CM 1. 35 weeks gestation of ([facility]) Z3A.35 POCT urinalysis dipstick manually resulted US biophysical profile w non stress test 2. Third trimester ([facility]) Z34.93 POCT urinalysis dipstick manually resulted US biophysical profile w non stress test 3. Gestational diabetes mellitus (GDM), antepartum, gestational diabetes method of control unspecified ([facility]) O24.419 POCT urinalysis dipstick manually resulted US biophysical profile w non stress test 4. Chronic hypertension I10 US biophysical profile w non stress test 5. H/O miscarriage, currently ([facility]) O09.299 US biophysical profile w non stress test 6. UTI symptoms R39.9 Urine culture Patient presents today for a routine obstetrics appointment. Patient is currently 35w4d with a Estimated Date of Delivery: 07/29/25. Patient to have GBS at next appointment. Patient is to schedule NST/BPP's at [facility] to get started. Patient voiced that vomiting has increased. Patient to also setup ECHO and EKG at [facility]. Patient to return to clinic in 1 week to sign IOL consents and have GBS obtained. Documented by Sanaz Mcconnell LPN on behalf of: Greg Anderson DO documented in this encounter Plan of Treatment DateTypeDepartmentCare Team (Latest Contact Info)Xwnssujuscc59/29/2025 3:20 PM EDTRoutine [facility] [address] [place] [phone] Krupa Hernandez PA [address] [place] [address] NameTypePriorityAssociated DiagnosesOrder ScheduleUS biophysical profile w non stress testImagingRoutine 35 weeks gestation of ([facility]) Third trimester ([facility]) Gestational diabetes mellitus (GDM), antepartum, gestational diabetes method of control unspecified([facility]) Chronic hypertension H/O miscarriage, currently ([facility]) Expected: 06/28/2025 (Approximate), Expires: 12/27/2025Urine cultureMicrobiology Routine UTI symptoms Ordered: 06/28/2025ECG 12 lead unit performedECGRoutine Chronic hypertension Palpitations Expected: 06/28/2025 (Approximate), Expires: 06/28/2026Echocardiogram 2D completeEchocardiographyRoutine Chronic hypertension Palpitations Expected: 06/28/2025 (Approximate), Expires: 06/28/2027documented as of this encounter Procedures Procedure NamePriorityDate/TimeAssociated DiagnosisCommentsPOCT URINALYSIS VDQXCYLTBrasjjz82/20/2025 10:04 AM EDT 35 weeks gestation of ([facility]) Third trimester ([facility]) Gestational diabetes mellitus (GDM), antepartum, gestational diabetes method of control unspecified([facility]) documented in this encounter Results * (ABNORMAL) POCT urinalysis dipstick manually resulted (06/28/2025 10:04 AM EDT)ComponentValueRef RangeTest MethodAnalysis TimePerformed AtPathologist SignatureColor, UAAmberClarity, UAClearGlucose, UANegativeNegative - 2000(110) ++++ mg/dLBilirubin, UAPositiveNegative - 4(70) +++ mg/dLComment:1+Ketones, UA PositiveNegative - 160(16) ++++ mg/dLComment:+Spec Grav, UA1.0301 - 1.03Blood, UANegativeNegative - 50 Javi/mcLpH, UA6.05 - 9Protein, UAPositiveNegative - 2000(20) ++++ mg/dLComment:1+Urobilinogen, UA1.00.2 - 12 mg/dLLeukocytes, UA PositiveNegative - 500+++ Tomas/mcLComment:2+Nitrite, UAPositiveNegative - PositiveSpecimen (Source)Anatomical Location / LateralityCollection Method / VolumeCollection TimeReceived EwgwFxhwg21/20/2025 10:04 AM EDT Narrative Authorizing ProviderResult TypeResult StatusCorey Justin DOPOINT OF CARE TEST ENTER/EDIT ORDERABLESFinal Result documented in this encounter Visit Diagnoses Diagnosis 35 weeks gestation of ([facility]) Third trimester ([facility]) state, incidental Gestational diabetes mellitus (GDM), antepartum, gestational diabetes method of control unspecified([facility]) Chronic hypertension H/O miscarriage, currently ([facility]) UTI symptoms Palpitations Heartburn during , antepartum ([facility]) documented in this encounter
--- NOTE | 2025-07-06 | US_ITS ---
The [address] [address] Patient Name: NATALIE CESPEDES MRN: [id number] date: 1985 Sex: F Assigned Patient Location: [facility] Current Patient Location: [facility] Accession/Order Number: [id number] Exam Date: 07/06/2025 09:32 Report Date: 07/06/2025 09:55 At the request of: CANDICE OCHOA DO Procedure: US OB BPP w non-stress BIOPHYSICAL PROFILE: CLINICAL INFORMATION: CHRONIC HYPERTENSION I10 COMPARISON: 06/29/2025 There is a single live intrauterine gestation in cephalic presentation. The reported gestational age is 36 weeks 5 days. The heart rate measures 135 beats per minute. FINDINGS: TONE: 1 or more episodes of activity extension and flexion of extremity or opening and closing of the hand [Y] 2/2 GROSS BODY MOVEMENTS: 3 or more discrete body or limb movements [Y] 2/2 BREATHING MOVEMENTS: 1 or more episodes of breathing lasting at least 30 seconds [Y] 2/2 MERCEDES: A single deepest vertical pocket of amniotic fluid greater than 2 cm [Y] 2/2 MERCEDES: 17.1 cm Total score: 8/8 US/US OB BPP w non-stress IMPRESSION: NORMAL BIOPHYSICAL PROFILE Impression dictated by: Joan Womack M.D. 07/06/2025 9:55 AM Dictation Location: [place] [address] Electronically authenticated by: [id number] Y Date: 07/06/2025 09:55
--- OUTSIDE RECORDS SUMMARY | 2025-07-06 09:30 | XMS_ITS | Encounter Summary ---
Author Organization [facility] Address [address] [place] [address] Care Team Providers Care Solar Manufacturer'S Representative Name Role Phone Unavailable Primary Care Provider Unavailabl e Encounter Details DateTypeDepartmentCare Team (Latest Contact Info)Nircbxvuaea78/20/2025External Result Encounter [facility] External Department Unsolicited Greg Anderson DO [address] [facility] [place], [facility] Social History Tobacco UseTypesPacks/DayYears UsedDateSmoking Tobacco: Never Assessed Estimated Date of CrbqrjnpJttpgqzzVnb33/20/2025Based on UltrasoundSex and Gender InformationValueDate RecordedSex Assigned at ZeosjBeltoq29/21/2025 1:58 PM EST Legal EelAfzvmm18/15/2023 6:58 PM EDTGender JdljsipdFcpnvc28/21/2025 1:58 PM EST Sexual BjhpwqelhxgMkqzapdf66/21/2025 1:58 PM ESTdocumented as of this encounter Plan of Treatment DateTypeDepartmentCare Team (Latest Contact Info)Fpnfktibsrq07/29/2025 3:20 PM EDTRoutine [facility] Sree OBGYCeline [address] [facility] [address] Krupa Hernandez PA [address] [place], [facility] documented as of this encounter Procedures Procedure NamePriorityDate/TimeAssociated DiagnosisCommentsURINARY TRACT INFECTION (HTRX)Onsbwjn7706/28/2025 11:26 AM EDT documented in this encounter Results * (ABNORMAL) URINARY TRACT INFECTION (HTRX) (06/28/2025 11:26 AM EDT)Component ValueRef RangeTest MethodAnalysis TimePerformed AtPathologist Signature ACINETOBACTER RYMMSVDP879.961 - 24.689 ppm06/29/2025 7:56 AM EDTHealthTrackRx at LabPortACINETOBACTER BAUMANIINot Aloywrcp11.961 - 24.689 ppm06/29/2025 7:56 AM EDTHealthTrackRx at LabPortCITROBACTER HNAHAZRJ172.000 - 32.015 ppm 06/29/2025 7:56 AM EDTHealthTrackRx at LabPortCITROBACTER FREUNDIINot Detected 23.000 - 32.015 ppm06/29/2025 7:56 AM EDTHealthTrackRx at LabPortENTEROBACTER AEROGENES, OIPBHLF284.000 - 32.290 ppm06/29/2025 7:56 AM EDTHealthTrackRx at LabPortENTEROBACTER AEROGENES, CLOACAENot Wxpeqlhs47.000 - 32.290 ppm 06/29/2025 7:56 AM EDTHealthTrackRx at LabPortENTEROCOCCUS FAECALIS, FAECIUM0 26.000 - 33.043 ppm06/29/2025 7:56 AM EDTHealthTrackRx at LabPortENTEROCOCCUS FAECALIS, FAECIUMNot Hdymmkhm21.000 - 33.043 ppm06/29/2025 7:56 AM EDT [facility] at LabPortESCHERICHIA COLI20.735(A)23.000 - 28.500 ppm06/29/2025 7:56 AM EDTHealthTrackRx at LabPortESCHERICHIA COLIDetected(A)23.000 - 28.500 ppm06/29/2025 7:56 AM EDTHealthTrackRx at LabPortKLEBSIELLA PNEUMONIAE, JLHAFMN520.000 - 31.865 ppm06/29/2025 7:56 AM EDTHealthTrackRx at [facility] KLEBSIELLA PNEUMONIAE, OXYTOCANot Winnytdx52.000 - 31.865 ppm06/29/2025 7:56 AM EDTHealthTrackRx at LabPortMORGANELLA SDHHVGTA318.961 - 24.689 ppm 06/29/2025 7:56 AM EDTHealthTrackRx at LabPortMORGANELLA MORGANIINot Detected 19.961 - 24.689 ppm06/29/2025 7:56 AM EDTHealthTrackRx at LabPortPROTEUS MIRABILIS, DNAFMVIP028.000 - 28.500 ppm06/29/2025 7:56 AM EDTHealthTrackRx at LabPortPROTEUS MIRABILIS, VULGARISNot Cizclybp04.000 - 28.500 ppm06/29/2025 7:56 AM EDTHealthTrackRx at LabPortPSEUDOMONAS MBFXBTHESY613.000 - 31.801 ppm 06/29/2025 7:56 AM EDTHealthTrackRx at LabPortPSEUDOMONAS AERUGINOSANot Wcboxgxt16.000 - 31.801 ppm06/29/2025 7:56 AM EDTHealthTrackRx at [facility] STAPHYLOCOCCUS ADPTKE082.000 - 31.595 ppm06/29/2025 7:56 AM EDTHealthTrackRx at LabPortSTAPHYLOCOCCUS AUREUSNot Eyzzkrai12.000 - 31.595 ppm06/29/2025 7:56 AM EDTHealthTrackRx at LabPortSTREPTOCOCCUS AGALACTIAE (GROUP B STREP)026.000 - 32.435 ppm06/29/2025 7:56 AM EDTHealthTrackRx at LabPortSTREPTOCOCCUS AGALACTIAE (GROUP B STREP)Not Dvdqjjlz83.000 - 32.435 ppm06/29/2025 7:56 AM EDTHealthTrackRx at LabPortCANDIDA ALBICANS, PARAPSILOSIS, STMBVMXNLH667.000 - 30.347 ppm06/29/2025 7:56 AM EDTHealthTrackRx at LabPortCANDIDA ALBICANS, PARAPSILOSIS, TROPICALISNot Rqkpmpgw88.000 - 30.347 ppm06/29/2025 7:56 AM EDT [facility] at LabPortCANDIDA INPITEZJ903.000 - 31.618 ppm06/29/2025 7:56 AM EDTHealthTrackRx at LabPortCANDIDA GLABRATANot Zbhbpdrh54.000 - 31.618 ppm 06/29/2025 7:56 AM EDTHealthTrackRx at LabPortCANDIDA HEWSUA549.000 - 30.873 ppm06/29/2025 7:56 AM EDTHealthTrackRx at LabPortCANDIDA KRUSEINot Detected 23.000 - 30.873 ppm06/29/2025 7:56 AM EDTHealthTrackRx at LabPortSERRATIA QAPTGSTUHB037.000 - 31.581 ppm06/29/2025 7:56 AM EDTHealthTrackRx at LabPort SERRATIA MARCESCENSNot Dfserswg88.000 - 31.581 ppm06/29/2025 7:56 AM EDT [facility] at LabPortSTREPTOCOCCUS PYOGENES (GROUP A STREP)019.961 - 24.689 ppm06/29/2025 7:56 AM EDTHealthTrackRx at LabPortSTREPTOCOCCUS PYOGENES (GROUP A STREP)Not Skvpvpyj77.961 - 24.689 ppm06/29/2025 7:56 AM EDTHealthTrackRx at LabPortSTAPHYLOCOCCUS EPIDERMIDIS, HAEMOLYTICUS, LUGDUNENSIS, SAPROPHYTICUS (TVANO185.961 - 24.689 ppm06/29/2025 7:56 AM EDTHealthTrackRx at [facility] STAPHYLOCOCCUS EPIDERMIDIS, HAEMOLYTICUS, LUGDUNENSIS, SAPROPHYTICUS (URINANot Djayqqzh28.961 - 24.689 ppm06/29/2025 7:56 AM EDTHealthTrackRx at [facility] STAPHYLOCOCCUS EPIDERMIDIS, HAEMOLYTICUS, LUGDUNENSIS, SAPROPHYTICUS (URINA0 19.961 - 24.689 ppm06/29/2025 7:56 AM EDTHealth[facility] at [facility] STAPHYLOCOCCUS EPIDERMIDIS, HAEMOLYTICUS, LUGDUNENSIS, SAPROPHYTICUS (URINANot Ojltwxmv52.961 - 24.689 ppm06/29/2025 7:56 AM EDTHealthTrackRx at LabPortTET B, TET M26.455(A)23.000 - 27.500 ppm10/ 7:56 AM EDTHealthTrackRx at [facility] HospitalTET CINDI Boss MDetected(A)23.000 - 27.500 ppm06/29/2025 7:56 AM EDT [facility] HospitalSpecimen (Source)Anatomical Location / Laterality Collection Method / VolumeCollection TimeReceived HnqyOhrjc25/20/2025 11:26 AM EDT1 1:41 AM EDT Narrative Authorizing ProviderResult TypeResult StatusCorey Justin DOLAB BLOOD ORDERABLES Final ResultPerforming OrganizationAddressCity/State/ZIP CodePhone Number [facility] [place] [phone] [address] [address] documented in this encounter Visit Diagnoses Not on filedocumented in this encounter
--- OUTSIDE RECORDS SUMMARY | 2025-07-06 09:30 | XMS_ITS | Encounter Summary ---
Author Organization [facility] Address [address] [facility] [place] [address] Care Team Providers Care Congressional Assistant Name Role Phone Unavailable Primary Care Provider Unavailabl e Encounter Details DateTypeDepartmentCare Team (Latest Contact Info)Aisczbjorrm83/22/2025Telephone [facility] MESSINA [address] [place] [address] Hina Moura MA Social History Tobacco UseTypesPacks/DayYears UsedDateSmoking Tobacco: Never Assessed Estimated Date of InaxbfalLctnrpzqKii37/20/2025Based on UltrasoundSex and Gender InformationValueDate RecordedSex Assigned at KdrrjLeupmc88/21/2025 1:58 PM EST Legal PkaOuihho37/15/2023 6:58 PM EDTGender OprzoocoCzglso85/21/2025 1:58 PM EST Sexual VfdrjkosyenFtlawgvi04/21/2025 1:58 PM ESTdocumented as of this encounter Miscellaneous Notes * Telephone Encounter - Hina Moura MA - 06/30/2025 8:54 AM EDT Pt notified of results and recommendations. Pharmacy confirmed and medication sent. documented in this encounter Plan of Treatment DateTypeDepartmentCare Team (Latest Contact Info)Xkamhvmzxln83/29/2025 3:20 PM EDTRoutine [facility] MESSINA [address] [place] [phone] Krupa Hernandez PA [address] [place] [address] documented as of this encounter Visit Diagnoses Diagnosis Urinary tract infection with hematuria, site unspecified documented in this encounter
--- OUTSIDE RECORDS SUMMARY | 2025-07-06 09:30 | XMS_ITS | Clinical Summary ---
Author Organization [employer] [facility] tem Address [id number] [place] [address] Care Team Providers Care Contract Paralegal Name Role Phone Unavailable Primary Care Provider Unavailabl e Allergies Active AllergyReactionsCriticalityNoted DateCommentsSulfa (Sulfonamide Antibiotics)Etwqwidt80/19/2025 Medications MedicationSigDispense QuantityRefillsLast FilledStart DateEnd DateStatus omeprazole [...] Multigravida of advanced maternal age in second kzjiaxogd33/03/2025Estimated Date of DeliveryCommentsYes 07/29/2025ased on Ultrasound Encounters DateTypeDepartmentCare WuhcDqlhahfqtph82/11/7477Hrqdlb81/14/1452Louyze95/30/2025 Telephone [facility] [place] [address] [place] [phone] Lilly Rust, FANY from Last 3 Months Family History Medical HistoryRelationNameCommentsHypertensionFatherKidney pmafohhQskgzsK0JD ZfxcvwV2ZTLllffxex GrandfatherBreast cancerMaternal GrandmotherRelationName StatusCommentsFatherDeceasedMaternal GrandfatherMaternal Grandmother Social [...] money to get more.Never True03/11/2025Estimated Date of VnliqehoBtyzlbsuEvd22/20/2025ased on UltrasoundSex and Gender InformationValue Date RecordedSex Assigned at BirthNot on fileLegal XodZbespr65/15/2025 11:20 AM EDTGender IdentityNot on fileSexual OrientationNot on file Last Filed Vital Signs Vital SignReadingTime TakenCommentsBlood Yvehjcxx904/8307 9:25 AM EDT Fggnc194703/11/2025 9:25 AM EDTTemperature--Respiratory Rate--Oxygen Saturation-- Inhaled Oxygen Concentration--Qsxxzf086.2 kg (269 lb 6.4 oz)03/11/2025 9:25 AM DRKZgvpxo728.6 cm (5' 4 )03/11/2025 9:25 AM EDTBody Mass Index46.24003/11/2025 9:25 AM EDT Plan of Treatment Health MaintenanceDue DateLast DoneCommentsDepression Yllqjpxlt84/23/1999Adult BMI Follow Up Plan2005DTaP,Tdap and Td Vaccines (1 - Tdap)2006COVID- 19 Vaccine (2 - season)/10/2020Influenza Wibzhxo4805/10/2025 06/15/2022, 05/23/2021dult BMI Dazpnordb04Tobacco Screening Pap Smear06806 Medical Devices Not on file Procedures Procedure NamePriorityDate/TimeAssociated DiagnosisCommentsUS MFM OB FOLLOW-UP, 1 MLKPWGmhlfng98/11/2025 3:06 PM EDT Choroid plexus cyst of fetus in miranda Multigravida of advanced maternal age in second trimester Diet controlled gestational diabetes mellitus (GDM) in second trimester Hx of essential hypertension US MFM OB FOLLOW-UP, 1 QODHYGaocmgg27/14/2025 3:22 PM EDT Choroid plexus cyst of [...] ESTRADA : 1985 SEX: F Accession Number: [id number] ORDERING PHYSICIAN: CANDICE ANDERSON REFERRING PHYSICIAN: CANDICE ANDERSON Coding Procedures ? 00514: Follow-up Ultrasound, per fetus Indication , Screening for follow-up survey, AMA- Supervision of elderly, Chronic hypertension affecting , Obesity in , History OB History ? 2. Para 0 ? [id number] Maternal Assessment Physical Exam ??Height 163 cm, [...] (oz) ? 8 oz EFW by: ?Hadlock (LGX-GQ-LM-FL) Extended Tibia ??49.6 mm 29w 5d 43% [employer] Manager ? 4.4 mm CM ? 7.0 mm [...] Heart/Thorax: 4-chamber view. RVOT view. LVOT view. 1-tyosdc-hldcsja view. Situs. Ductal arch view.Interventricular ? septum. [...] MVP measures 6.2 cm. Recommendations Please see [facility] recommendations from prior clinical and/or ultrasound report documentation. Subsequent follow up or other follow up as clinically determined by primary OB provider unless otherwise specified by [facility]. Results forwarded to ordering provider so they can follow up with the patient as necessary. Procedure Note Sam Sultana MD - 05/20/2025 NAME: RUBINA ESTRADA : 1985 SEX: F Accession Number: [id number] ORDERING PHYSICIAN: CANDICE ANDERSON REFERRING PHYSICIAN: CANDICE ANDERSON Coding Procedures 63655: Follow-up Ultrasound, per fetus Indication , Screening for follow-up survey, AMA- Supervision of elderly, Chronic hypertension affecting , Obesity in , History OB History 2. Para 0 [id number] Maternal Assessment Physical Exam Height 163 cm, [...] EFW (oz) 8 oz EFW by: Hadlock (XHN-ZG-HB-FL) Extended Tibia 49.6 mm 29w 5d 43% [employer] Manager 4.4 mm CM 7.0 mm 51% Nicolaides [...] Heart/Thorax: 4-chamber view. RVOT view. LVOT view. 2-qdbzit-zfayige view.Situs. Ductal arch view. Interventricular septum. Great [...]
--- OUTSIDE RECORDS SUMMARY | 2025-07-06 09:30 | XMS_ITS | Clinical Summary ---
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 Name Role Phone Unavailable Primary Care Provider Unavailabl e Allergies Active AllergyReactionsCriticalityNoted DateCommentsSulfa AntibioticsSwelling High03/30/2016 Other Reaction(s): Swelling of throat Sulfamethoxazole-ClhxilzvczfwIhkuiad19/11/2024 Medications MedicationSigDispense QuantityRefillsLast FilledStart DateEnd DateStatus venlafaxine XR (Effexor XR) 150 MG 24 hr capsule Take 150 mg by mouth Daily04/14/2024ctive omeprazole (PriLOSEC) [address] capsule PLEASE SEE ATTACHED FOR DETAILED YIHFQFEAJN61/02/2025Active labetalol (Normodyne) 200 MG tablet Indications:Elevated blood pressure readingTake 1 tablet (200 mg) by mouth in the morning and 1 tablet (200 mg) in the evening and 1 tablet (200 mg) before bedtime. 90 tablet 1104/531807/6Active MV-Min-Fe Fum-FA-DHA ( 1 PO) Take by [...] by mouth every 6 (six) hours if [id number] phenazopyridine (Pyridium) 100 MG tablet Indications:Urinary tract [...] capsule /5Active Active Problems Estimated Date of NvaztbrySmzrvqvuGxo69/20/2025Based on Ultrasound No known active problems Encounters DateTypeDepartmentCare WyqtKpdjgakehsq57/22/2025bstract [facility] Sree OBPAULO [address] [place] [address] [place] [address] Roma Moura[place], [place] 06/30/2025Telephone [facility] S[facility] OBGYN [address] [place] [address] Hina MouraONTARIO, [place] 06/28/2025 9:40 AM EDTRoutine [facility] [address] [place] [address] Candice Anderson, DO 35 weeks gestation of ([facility]); Third trimester ([facility]); Gestational diabetes mellitus (GDM), antepartum, gestational diabetes method of control unspecified([facility]); Chronic hypertension; H/O miscarriage, currently ([facility]); UTI symptoms; Palpitations; Heartburn during , antepartum ([facility])06/28/2025External Result Encounter NOMS External Department Unsolicited Candice Anderson, 06/28/2025amboo flowsheet [facility] [address] [place] [address] Candice Anderson, 06/17/2025bstract [facility] [address] [place] [address] Candice Anderson, 06/14/2025 11:50 AM EDTRoutine [facility] S[facility] [address] [place] [address] Suzanne Valdivia NP 33 weeks gestation of ([facility]); Third trimester ([facility]); Gestational diabetes mellitus (GDM), antepartum, gestational diabetes method of control unspecified([facility])06/14/2025linisync Result Encounter NOMS External Department Unsolicited Krupa Olmstead PA 06/14/2025amboo flowsheet [facility] [address] [place] [address] Suzanne Valdivia NP 05/27/2025 8:50 AM EDTRoutine [facility] [address] [place] [address] Krupa Olmstead PA Size of fetus inconsistent with dates, antepartum ([facility]) (Primary Dx); Third trimester ([facility]); 31 weeks gestation of ([facility])05/27/2025amboo flowsheet [facility] [address] [place] [address] Krupa Olmstead PA 05/20/2025bstract [facility] [address] [place] [address] Candiec Anderson, 05/13/2025 8:30 AM EDTRoutine N[facility] [address] [place] [address] Candice Anderson, 29 weeks gestation of ([facility]); Third trimester ([facility]); Gestational diabetes mellitus (GDM), antepartum, gestational diabetes method of control unspecified([facility]); Urinary tract infection without hematuria, site lypbqpxrdgf46/04/2025amb flowsheet [facility] [address] [place] [address] Candice Anderson, 05/11/2025External Result Encounter NOMS External [...] Department Unsolicited Shaun Rebollar MD 05/04/2025bstract [facility] [address] [place] [phone] Candice Anderson, DO 05/04/2025Telephone [facility] Sree OBGYCeline [address] [place] [address] Candice Anderson, DO 04/28/2025 1:00 PM EDTRoutine NOMS Sree ZIMMERGYCeline [address] [place] [address] Krupa Olmstead PA 26 weeks gestation of ([facility]); Second trimester ([facility]); Urinary tract infection with hematuria, site unspecified; Yeast txmugixbk44/20/2025amboo flowsheet [facility] Sree OBGYCeline [address] [place] [address] Krupa Olmstead PA 04/23/2025bstract [facility] [address] [place] [address] Candice Anderson, DO 04/21/20251026Yoezch06/07/2025Clinisync Result Encounter NOMS External Department Unsolicited Candice Anderson, DO 5Clinisync Result Encounter NOMS External Department Unsolicited Candice Anderson, DO 5Clinisync Result Encounter NOMS External Department Unsolicited Candice Anderson, DO 04/15/2025Telephone [facility] [address] [place] [address] Hina Moura MA from Last 3 Months Social History Tobacco UseTypesPacks/DayYears UsedDateSmoking Tobacco: Never Assessed Estimated Date of LtkvrvycFhunyowlCvr77/20/2025ased on UltrasoundSex and Gender InformationValueDate RecordedSex Assigned at HbhpsJhwnqc74/21/2025 1:58 PM EST Legal PeiSqgexx77/15/2023 6:58 PM EDTGender BdhxrscdJkqwui73/21/2025 1:58 PM EST Sexual NzapwemmsenUewzypww40/21/2025 1:58 PM EST Last Filed Vital Signs Vital SignReadingTime TakenCommentsBlood Nuywicfl461/801 9:58 AM EDT Pulse--Temperature--Respiratory Rate--Oxygen Saturation--Inhaled Oxygen Concentration--Booorf726 kg (269 lb)06/28/2025 9:58 AM EDTHeight--Body Mass Index-- Plan of Treatment DateTypeDepartmentCare Team (Latest Contact Info)Fxticjroixt66/29/2025 3:20 PM EDTRoutine [facility] S[facility] O[facility] [address] [place] [address] Krupa Olmstead PA [address] [place] [address] Health MaintenanceDue DateLast DoneCommentsMMR Vaccines (1 of 1 - Standard series)1988DTaP/Tdap/Td Vaccines (1 - Tdap)1994Varicella Vaccines (1 of 2 - 13+ 2-dose series)2000Hepatitis B Vaccines (1 of 3 - 19+ 3-dose series)2006HPV Vaccines (1 - 3-dose SCDM series)2014HPV/Cotest 2017COVID-19 Vaccine (2 - season)/10/2020Influenza Vaccine (#1)/03/2022, 05/23/2021ervical Cancer Atzvuntmh03/03/2028 Pap SmearHIB VaccinesAged OutNo longer eligible based on patient's age to complete this topicHepatitis A VaccinesAged OutNo longer eligible based on patient's age to complete this topicIPV VaccinesAged OutNo longer eligible based on patient's age to complete this topicMeningococcal B VaccineAged OutNo longer eligible based on patient's age to complete this topic Meningococcal VaccineAged OutNo longer eligible based on patient's age to complete this topicPneumococcal Vaccine: Pediatrics (0 to 5 Years) and At-Risk Patients (6 to 64 Years)Aged OutNo longer eligible based on patient's age to complete this topicRotavirus VaccinesAged OutNo longer eligible based on patient's age to complete this topic Procedures Procedure NamePriorityDate/TimeAssociated DiagnosisCommentsURINARY TRACT INFECTION (HTRX)Cwrxncq2706/28/2025 11:26 AM EDT POCT URINALYSIS OEKOILXSOvqhsvx23/20/2025 10:04 AM EDT 35 weeks gestation of ([facility]) Third trimester ([facility]) Gestational diabetes mellitus (GDM), antepartum, gestational diabetes method of control unspecified([facility]) US OB JRSAKU4106/14/2025 12:01 PM EDT POCT URINALYSIS ZSKCVGKDPpcimml60/06/2025 11:49 AM EDT 33 weeks gestation of ([facility]) Third trimester ([facility]) POCT URINALYSIS ZMDHGOQCYwkgogh03/18/2025 8:58 AM EDT Third trimester ([facility]) POCT URINALYSIS NVIMAVWIMjxnnwc29/04/2025 8:42 AM EDT 29 weeks gestation of ([facility]) Third trimester ([facility]) US RENAL QBGTLUKL61/02/2025 12:52 PM EDT MOMMUOEVDK27/01/2025 11:10 PM EDT JBQWQDOMFLX44/01/2025 11:10 PM EDT COMPREHENSIVE METABOLIC YAUPJEUYX27/01/2025 11:10 PM EDT CBC WITH AUTO IZUXDUJDQITKAWBW46/01/2025 11:10 PM EDT BJFNXJIGNJISJIN37/01/2025 11:05 PM EDT AEROBIC DAVE CHARGE (NMIC56)STAT05/10/2025 10:30 PM EDT URINALYSIS MIFQUDMAJJ49/01/2025 10:30 PM EDT CULTURE, URINE, BVIBWODRWHY54/01/2025 10:30 PM EDT URINARY TRACT INFECTION (HTRX)Xqejrvc6404/28/2025 1:20 PM EDT POCT URINALYSIS LGTTTDOERbnixou17/20/2025 1:15 PM EDT 26 weeks gestation of ([facility]) Second trimester ([facility]) US OB NTYGCDAH68/07/2025 4:27 PM EDT OB CERVICAL LWCYVA9504/15/2025 4:27 PM EDT [facility] URINE MICROSCOPIC ZQRATxwfqov38/07/2025 2:55 PM EDT [facility] UA (CLEAN/CATCH) RADIOLOGIC TECHNICIAN/MICRO IF IND.Xcezebj8204/15/2025 2:55 PM EDT PAP CVPOXDbiahre67/03/2025 12:00 AM EDTfrom Last 3 Months or Most Recently Relevant to Health Maintenance Results * (ABNORMAL) URINARY TRACT INFECTION (HTRX) (06/28/2025 11:26 AM EDT) Only the most recent of2 resultswithin the time period is included. ComponentValueRef RangeTest MethodAnalysis TimePerformed AtPathologist Signature ACINETOBACTER FOMHCQVK200.961 - 24.689 ppm06/29/2025 7:56 AM EDTHealthTrackRx at LabPortACINETOBACTER BAUMANIINot Eyuorive00.961 - 24.689 ppm06/29/2025 7:56 AM EDTHealthTrackRx at LabPortCITROBACTER DJHGTRNS745.000 - 32.015 ppm06/29/2025 7:56 AM EDTHealthTrackRx at LabPortCITROBACTER FREUNDIINot Ltvpgrty11.000 - 32.015 ppm06/29/2025 7:56 AM EDTHealthTrackRx at LabPortENTEROBACTER AEROGENES, TSZTYUN385.000 - 32.290 ppm06/29/2025 7:56 AM EDTHealth[facility]Rx [facility] ENTEROBACTER AEROGENES, CLOACAENot Mszzlksh80.000 - 32.290 ppm06/29/2025 7:56 AM EDTHealthTrackRx at [facility] HospitalPortENTEROCOCCUS FAECALIS, NUDVHXI684.000 - 33.043 ppm 06/29/2025 7:56 AM EDTHealthTrackRx at [facility] HospitalPortENTEROCOCCUS FAECALIS, FAECIUMNot Dnhzjfab27.000 - 33.043 ppm06/29/2025 7:56 AM EDTHealthTrackRx at [facility] ESCHERICHIA COLI20.735(A)23.000 - 28.500 ppm06/29/2025 7:56 AM EDTHealthTrackRx at [facility] CenterESCHERICHIA COLIDetected(A)23.000 - 28.500 ppm06/29/2025 7:56 AM EDT [facility] CenterKLEBSIELLA PNEUMONIAE, XXPAZRX260.000 - 31.865 ppm 06/29/2025 7:56 AM EDTHealthTrackRx at [facility] Medical CenterKLEBSIELLA PNEUMONIAE, OXYTOCANot Plgxdxlh69.000 - 31.865 ppm06/29/2025 7:56 AM EDTHealthTrackRx at [facility] MORGANELLA JIRKYRBT888.961 - 24.689 ppm06/29/2025 7:56 AM EDTHealthTrackRx at [facility] CenterMORGANELLA MORGANIINot Errpurcb65.961 - 24.689 ppm06/29/2025 7:56 AM EDT [facility] CenterPROTEUS MIRABILIS, JQKGVLVJ574.000 - 28.500 ppm 06/29/2025 7:56 AM EDTHealthTrackRx at [facility] HospitalPortPROTEUS MIRABILIS, VULGARISNot Gedcuvix94.000 - 28.500 ppm06/29/2025 7:56 AM EDTHealthTrackRx at [facility] PSEUDOMONAS WIFOXORIFZ279.000 - 31.801 ppm06/29/2025 7:56 AM EDTHealthTrackRx at LabPortPSEUDOMONAS AERUGINOSANot Heubjjxi48.000 - 31.801 ppm06/29/2025 7:56 AM EDTHealthTrackRx at LabPortSTAPHYLOCOCCUS BELUFS261.000 - 31.595 ppm06/29/2025 7:56 AM EDTHealthTrackRx at LabPortSTAPHYLOCOCCUS AUREUSNot Cmrvqtit75.000 - 31.595 ppm06/29/2025 7:56 AM EDTHealthTrackRx at LabPortSTREPTOCOCCUS AGALACTIAE (GROUP B STREP)026.000 - 32.435 ppm06/29/2025 7:56 AM EDTHealthTrackRx at LabPortSTREPTOCOCCUS AGALACTIAE (GROUP B STREP)Not Qjenjhpq01.000 - 32.435 ppm 06/29/2025 7:56 AM EDTHealthTrackRx at LabPortCANDIDA ALBICANS, PARAPSILOSIS, RNHLFQKRWL051.000 - 30.347 ppm06/29/2025 7:56 AM EDTHealthTrackRx at LabPort RINA ALBICANS, PARAPSILOSIS, TROPICALISNot Mvguiene21.000 - 30.347 ppm 06/29/2025 7:56 AM EDTHealthTrackRx at LabPortCANDIDA ZALRYVXJ855.000 - 31.618 ppm06/29/2025 7:56 AM EDTHealthTrackRx at LabPortCANDIDA GLABRATANot Detected 23.000 - 31.618 ppm06/29/2025 7:56 AM EDTHealthTrackRx at LabPortCANDIDA KRUSEI0 23.000 - 30.873 ppm06/29/2025 7:56 AM EDTHealthTrackRx at LabPortCANDIDA KRUSEI Not Zhvbdjkp71.000 - 30.873 ppm06/29/2025 7:56 AM EDTHealthTrackRx at LabPort SERRATIA XUZAFBWLTE318.000 - 31.581 ppm06/29/2025 7:56 AM EDTHealthTrackRx at LabPortSERRATIA MARCESCENSNot Tqngjlzp96.000 - 31.581 ppm06/29/2025 7:56 AM EDT [facility] at LabPortSTREPTOCOCCUS PYOGENES (GROUP A STREP)019.961 - 24.689 ppm06/29/2025 7:56 AM EDTHealthTrackRx at [facility] CenterSTREPTOCOCCUS PYOGENES (GROUP A STREP)Not Eddfbsrl59.961 - 24.689 ppm06/29/2025 7:56 AM EDTHealthTrackRx at [facility] Medical CenterSTAPHYLOCOCCUS EPIDERMIDIS, HAEMOLYTICUS, LUGDUNENSIS, SAPROPHYTICUS (IVWHN431.961 - 24.689 ppm06/29/2025 7:56 AM EDTHealthTrackRx at [facility] STAPHYLOCOCCUS EPIDERMIDIS, HAEMOLYTICUS, LUGDUNENSIS, SAPROPHYTICUS (URINANot Jscswyqv38.961 - 24.689 ppm06/29/2025 7:56 AM EDTHealthTrackRx at [facility] STAPHYLOCOCCUS EPIDERMIDIS, HAEMOLYTICUS, LUGDUNENSIS, SAPROPHYTICUS (URINA0 19.961 - 24.689 ppm06/29/2025 7:56 AM EDTHealthTrackRx at [facility] CenterSTAPHYLOCOCCUS EPIDERMIDIS, HAEMOLYTICUS, LUGDUNENSIS, SAPROPHYTICUS (URINANot Ehlkifsp18.961 - 24.689 ppm06/29/2025 7:56 AM EDTHealthTrackRx at [facility] Medical CenterTET B, TET M26.455(A) 23.000 - 27.500 ppm06/29/2025 7:56 AM EDTHealthTrackRx at [facility] Medical CenterTET B, TET M Detected(A)23.000 - 27.500 ppm06/29/2025 7:56 AM EDTHealthTrackRx at [facility] Specimen (Source)Anatomical Location / LateralityCollection Method / Volume Collection TimeReceived TeveRnxsy92/20/2025 11:26 AM EDT1 1:41 AM EDT Narrative Authorizing ProviderResult TypeResult StatusCorey Justin DOLAB BLOOD ORDERABLES Final ResultPerforming OrganizationAddressCity/State/ZIP CodePhone Number [facility] [address] [address] * (ABNORMAL) POCT urinalysis dipstick manually resulted (06/28/2025 10:04 AM EDT) Only the most recent of5 resultswithin the time period is included. ComponentValueRef RangeTest MethodAnalysis TimePerformed AtPathologist Signature Color, UAAmberClarity, UAClearGlucose, UANegativeNegative - 1999(110) ++++ mg/dL Bilirubin, UAPositiveNegative - 4(70) +++ mg/dLComment:1+Ketones, UAPositive Negative - 160(16) ++++ mg/dLComment:+Spec Grav, UA1.0301 - 1.03Blood, UA NegativeNegative - 50 Javi/mcLpH, UA6.05 - 9Protein, UAPositiveNegative - 2000(20) ++++ mg/dLComment:1+Urobilinogen, UA1.00.2 - 12 mg/dLLeukocytes, UA PositiveNegative - 500+++ Tomas/mcLComment:2+Nitrite, UAPositiveNegative - PositiveSpecimen (Source)Anatomical Location / LateralityCollection Method / VolumeCollection TimeReceived FlpwPwfjc37/20/2025 10:04 AM EDT Narrative Authorizing ProviderResult TypeResult StatusCorey Justin DOPOINT OF CARE TEST ENTER/EDIT ORDERABLESFinal Result * US OB GROWTH (06/14/2025 12:01 PM EDT)Anatomical RegionLateralityModalityOther Specimen (Source)Anatomical Location / LateralityCollection Method / Volume Collection TimeReceived Time06/14/2025 12:01 PM EDT Narrative 06/14/2025 12:04 PM EDT [facility] ?[address] ? [place] [address] ? Ultrasound Report ? Signed ? Patient: NATALIE CESPEDES S ?MR#: [id number] ?? : 1985 ?Acct:[id number] ?? Age/Sex: 40 / F ?ADM Date: 06/14/25 ?? Loc: US ? Attending Dr: Krupa Olmstead ? Ordering Physician: Krupa Olmstead ?? Date of Service: 06/14/25 ?? Procedure(s): US OB growth ?? Accession Number(s): [id number] ? cc: Krupa Olmstead; Lynn Jose D.O. ? [facility] ? [address] ? [place] [address] ? Patient Name: ?? NATALIE CESPEDES ? MRN: [facility]:[id number] ? date: 1985 ?Sex: F ?? Assigned Patient Location: ?? Current Patient Location: US ?? Accession/Order Number: [id number] ?? Exam Date: 06/14/2025 ??10:58 ?Report Date: [...] D.O. ??06/14/2025 12:01 PM ? Dictation Location: [facility]- ? Electronically authenticated by: [id number] ??Y ?? Date: 06/14/2025 ??12:01 ? Dictated By: ?Jacob Almanza M.D. ? Signed By: ?06/14/25 1204 ? DD/ 1201 ? TD/TT: ? Hr Payroll Coordinator: Procedure Note Radiology, Radiologist, - 06/14/2025 [place] [address] Ultrasound Report Signed Patient: NATALIE CESPEDES SMR#: [id number] : 1985Acct:[id number] Age/Sex: 40 / FADM Date: 06/14/25 Loc: US Attending Dr: Krupa Olmstead Ordering Physician: Krupa Olmstead Date of Service: 06/14/25 Procedure(s): US growth Accession Number(s): [id number] cc: Krupa Olmstead; Lynn Jose D.O. The [address] [address] Patient Name: NATALIE CESPEDES MRN: [facility]:[id number] date: 1985 Sex: F Assigned Patient Location: US Current Patient Location: US Accession/Order Number: [id number] Exam Date: 06/14/2025 10:58 Report Date: 06/14/2025 [...] Jr., D.O. 06/14/2025 12:01 PM Dictation Location: [facility] Electronically authenticated by: [id number] Y Date: 2:01 Dictated By: Jacob Almanza M.D. Signed By:06/14/25 1204 DD/ 1201 TD/TT: Hr Payroll Coordinator: Authorizing ProviderResult TypeResult StatusAmy Ishan [facility] IMAGINGFinal Result * US renal complete (05/11/2025 [...] PWS ?05/11/25 1252 ? Dictated By: ?Deshaun Gonzalezler, II, MD ?05/11/25 1252 ? Signed By: <Electronically signed by Deshaun Alanis, II, MD in OV> ? 05/11/25 1252 Narrative 05/11/2025 12:55 PM EDT [facility] ?[facility] [place] ?[address] ? [place] [address] ? Ultrasound Report ? Signed ? Patient: Rubina,Natalie S ?MR#: [id number] ?? [id number] ? : 1985 ?Acct:[id number] ? Age/Sex: 40 / F ?ADM Date: 05/10/25 ? Loc: 3E ?Room: ??3Z0288-3 ?Type: REG CLI ?? Attending Dr: Shaun [...] Procedure Note Deshaun Alanis MD - 05/11/2025 [facility] [place] [address] [place] [address] Ultrasound Report Signed Patient: Natalie Cespedes [facility]#: [id number] : 1985Acct:[id number] Age/Sex: 40 / FADM Date: 05/10/25 Loc: Room: 0Y4822-6Czvn: REG CLI Attending Dr: Shaun Rebollar MD [...] Alanis M.D. 05/11/2025 12:52 PM Dictation Location: [place] [address] Tech: Chantell Lou Transcribed By: LAURA 05/11/25 1252 Dictated By: Deshaun Alanis II, MD 05/11/25 1252 Signed By: <Electronically signed by Deshaun Alanis II, MD inOV> 05/11/25 1252 Authorizing ProviderResult TypeResult StatusShaun Rebollar MDIMThierry US PROCEDURES Final Result * (ABNORMAL) CBC auto differential (05/10/2025 11:10 PM EDT)ComponentValueRef RangeTest MethodAnalysis TimePerformed AtPathologist OmcbewhzrRAW80.3(H)3.8 - 11.6 [CFU]/mL05/10/2025 11:25 PM [facility] CtrUNCORRECTED WHITE BLOOD COUNT19.3(H)3.8 - 11.6 10*3/uL05/10/2025 11:25 PM [facility] CtrRBC4.053.60 - 5.00 10*6/uL05/10/2025 11:25 PM [facility] WsqJAZSTACTYE32.3(L)11.8 - 15.4 g/dL05/10/2025 11:25 PM EDT [facility] GuzKOJIEGSWGE92.0(L)34.0 - 46.4 %05/10/2025 11:25 PM [facility] QuyXEJ53.480 - 100 fL05/10/2025 11:25 PM EDT [facility] PsnIUW43.924.7 - 34.3 pg05/10/2025 11:25 [facility] MzxLNOB54.232.0 - 35.0 g/dL05/10/2025 11:25 [facility] CtrRED CELL DISTRIBUTION WIDTH, RDW14.611.9 - 15.3 %05/10/2025 11:25 PM [facility] CtrPLATELET EWFNC108296 - 450 10*3/uL05/10/2025 11:25 PM [facility] CtrMEAN PLATELET VOLUME, MPV7.36.3 - 10.7 fL05/10/2025 11:25 PM [facility] CtrNEUTROPHILS, %91.2. %05/10/2025 11:25 PM [facility] LYMPHOCYTES, %4.8. %05/10/2025 11:25 PM [facility] MONOCYTE/MACROPHAGE, %3.2. %05/10/2025 11:25 PM [facility] CtrEOSINOPHILS, %0.4. %05/10/2025 11:25 PM [facility] BASOPHILS, %0.4. %05/10/2025 11:25 PM [facility] CtrNRBC0.1 0 - 0.5 /100{WBC}05/10/2025 11:25 PM [facility] MIIWMUBPTFN28.6(H)1.8 - 7.7 10*3/uL05/10/2025 11:25 PM [facility] CtrLYMPHOCYTES0.9(L)1.00 - 4.8 10*3/uL05/10/2025 11:25 PM [facility] CtrMONOCYTES0.60.0 - 0.8 10*3/uL05/10/2025 11:25 PM EDT [facility] CtrEOSINOPHILS0.10.0 - 0.45 10*3/uL05/10/2025 11:25 PM [facility] CtrBASOPHILS0.10.0 - 0.2 10*3/uL05/10/2025 11:25 PM [facility] CtrSpecimen (Source)Anatomical Location / LateralityCollection Method / VolumeCollection TimeReceived TimeBlood (Blood)05/10/2025 11:10 PM EDT05/10/2025 11:18 PM EDT Narrative Authorizing ProviderResult TypeResult StatusShaun Rebollar MDLAB BLOOD ORDERABLESFinal ResultPerforming OrganizationAddressCity/State/ZIP CodePhone Number [facility] [address] [place] [address], [facility] [address] [place] [address] * Lipase (05/10/2025 11:10 PM EDT)ComponentValueRef RangeTest MethodAnalysis TimePerformed AtPathologist DjgrqkouvPSQSJM29.011.0 - 82.0 U/L05/10/2025 11:45 PM [facility] CtrSpecimen (Source)Anatomical Location / LateralityCollection Method / VolumeCollection TimeReceived TimeOther Topography unknown / Ebyyzsb1905/10/2025 11:10 PM EDT05/10/2025 11:18 PM EDT Narrative Authorizing ProviderResult TypeResult StatusShaun Rebollar MDLAB BLOOD ORDERABLESFinal ResultPerforming OrganizationAddressCity/State/ZIP CodePhone Number [facility] [address] [place] [address], [facility] [address] [place] [address] * Amylase (05/10/2025 11:10 PM EDT)ComponentValueRef RangeTest MethodAnalysis TimePerformed AtPathologist GhtcjdctvJIAJAYN2712 - 103 U/L05/10/2025 11:45 PM [facility] CtrSpecimen (Source)Anatomical Location / LateralityCollection Method / VolumeCollection TimeReceived TimeOther Topography unknown / Hjfeezf3205/10/2025 11:10 PM EDT05/10/2025 11:18 PM EDT Narrative Authorizing ProviderResult TypeResult StatusShaun MONTILLA BLOOD ORDERABLESFinal ResultPerforming OrganizationAddressCity/State/ZIP CodePhone Number [facility] [address] [place] [address], [facility] [address] [place] [address] * (ABNORMAL) Comprehensive metabolic panel (05/10/2025 11:10 PM EDT)Component ValueRef RangeTest MethodAnalysis TimePerformed AtPathologist SignatureGlucose 111(H)70 - 100 mg/dL05/10/2025 11:45 PM [facility] Comment: Random Glucose Reference Range is dependent on time and content of last meal. Glucose of more than 200 mg/dL in a nonstressed, ambulatory subject supports the diagnosis of Diabetes Mellitus. ADA recommended reference range WWG986 - 25 mg/dL05/10/2025 11:45 PM [facility] CtrCREATININE 0.680.60 - 1.20 mg/dL05/10/2025 11:45 PM [facility] ESTIMATED GFR>60. 11:45 PM [facility] CbeHflqkt717 136 - 145 mmol/L05/10/2025 11:45 PM [facility] CtrPotassium, Bld3.93.5 - 5.1 mmol/L05/10/2025 11:45 PM [facility] Esppbmrw76554 - 107 mmol/L05/10/2025 11:45 PM [facility] Carbon Zxeshfw40.3(L)21.0 - 31.0 mmol/L05/10/2025 11:45 PM [facility] CtrAnion Gap14.66.0 - 15.009 11:45 PM [facility] CtrCalcium9.18.6 - 10.3 mg/dL05/10/2025 11:45 PM [facility] CtrTOTAL PROTEIN6.3(L)6.4 - 8.9 g/dL05/10/2025 11:45 PM [facility] CtrALBUMIN LEVEL3.63.5 - 5.7 g/dL05/10/2025 11:45 PM EDT [facility] CtrGLOBULIN2.7g/dL05/10/2025 11:45 PM [facility] CtrALBUMIN/GLOBULIN RATIO1.309 11:45 PM [facility] CtrBILIRUBIN,TOTAL0.40.3 - 1.0 mg/dL05/10/2025 11:45 PM EDT [facility] CtrASPARTATE AMINO ADUJURSPZKH8935 - 39 U/L05/10/2025 11:45 PM [facility] CtrALANINE UKQXQZHBPMBRIROI431 - 52 U/L 05/10/2025 11:45 PM [facility] CtrALKALINE XFWTLVASXMN1243 - 104 U/L05/10/2025 11:45 PM [facility] CtrCREATININE CLR CALC TCVLKSQX688.8705/10/2025 11:45 PM [facility] CtrSpecimen (Source)Anatomical Location / LateralityCollection Method / VolumeCollection TimeReceived TimeOtherTopography unknown / Ngmrhke1305/10/2025 11:10 PM EDT 05/10/2025 11:18 PM EDT Narrative Authorizing ProviderResult TypeResult StatusShaun Rebollar MDLAB BLOOD ORDERABLESFinal ResultPerforming OrganizationAddressCity/State/ZIP CodePhone Number [address] [address], [facility] [address] [place] [address] * fibronectin (05/10/2025 11:05 PM EDT)ComponentValueRef RangeTest Method Analysis TimePerformed AtPathologist SignatureFETAL FIBRONECTINNegative Pacswacc74/02/2025 12:02 AM [facility] CtrSpecimen (Source) Anatomical Location / LateralityCollection Method / VolumeCollection Time Received TimeOtherTopography unknown / Cxcheci8405/10/2025 11:05 PM EDT 05/10/2025 11:19 PM EDT Narrative [facility] - 05/11/2025 12:02 AM EDT Comment patients 22 - 34 6/7 weeks prior to vaginal exam Authorizing ProviderResult TypeResult StatusShaun Rebollar MDLAB BODY FLUIDS AND STOOLS ORDERABLESFinal ResultPerforming OrganizationAddressCity/State/ZIP Code Phone Number [address] [address], [facility] [address] [place] [address] * (ABNORMAL) AEROBIC DAVE CHARGE (NMIC56) (05/10/2025 10:30 PM EDT)ComponentValue Ref RangeTest MethodAnalysis TimePerformed AtPathologist SignatureAMIKACIN<16 (S)05/13/2025 7:51 AM [facility] CtrAMOXACILLIN/K CLAVULANATE<8/4(S)05/13/2025 7:51 AM [facility] Ctr AMPICILLIN>16(R)05/13/2025 7:51 AM [facility] Ctr AMPICILLIN/BZAVHOBZH50/8(I)05/13/2025 7:51 AM [facility] CtrAZTREONAM<4(S)05/13/2025 7:51 AM [facility] CtrCEFAZOLIN <2(S)05/13/2025 7:51 AM [facility] CtrCEFEPIME<2(S) 05/13/2025 7:51 AM [facility] CtrCEFTAZIDIME<1(S)05/13/2025 7:51 AM [facility] CtrCEFTAZIDIME/AVIBACTAM<4(S)05/13/2025 7:51 AM [facility] CtrCEFTOLOZANE/TAZOBACTAM<2(S) 05/13/2025 7:51 AM [facility] CtrCEFTRIAXONE<1(S)05/13/2025 7:51 AM [facility] CtrCEFUROXIME<4(S)05/13/2025 7:51 AM [facility] CtrCIPROFLOXACIN<0.25(S)05/13/2025 7:51 AM [facility] CtrERTAPENEM<0.5(S)05/13/2025 7:51 AM [facility] CtrGENTAMICIN<2(S)05/13/2025 7:51 AM [facility] CtrLEVOFLOXACIN<0.5(S)05/13/2025 7:51 AM [facility] CtrMEROPENEM<1(S)05/13/2025 7:51 AM [facility] Ctr MEROPENEM/VABORBACTAM<2(S)05/13/2025 7:51 AM [facility] Ctr NITROFURANTOIN<32(S)05/13/2025 7:51 AM [facility] Ctr PIPERACILLIN/TAZOBACTAM<8(S)05/13/2025 7:51 AM [facility] CtrTETRACYCLINE<4(S)05/13/2025 7:51 AM [facility] Ctr TIGECYCLINE<2(S)05/13/2025 7:51 AM [facility] CtrTOBRAMYCIN <2(S)05/13/2025 7:51 AM [facility] Ctr TRIMETHOPRIM/SULFAMETHOXAZOLE<0.5/9.5(S)05/13/2025 7:51 AM [facility] CtrSpecimen (Source)Anatomical Location / Laterality Collection Method / VolumeCollection TimeReceived TimeUrineUrine specimen obtained by clean catch procedure / Uvhrwfv7305/10/2025 10:30 PM EDT05/10/2025 10:55 PM EDTComment:Clean-Voided Midstream Narrative Authorizing ProviderResult TypeResult StatusShaun Rebollar MDFIRELANDSFinal ResultPerforming OrganizationAddressCity/State/ZIP CodePhone Number [facility] [address] [facility] [address], [facility] [address] [facility] [place] [address] * (ABNORMAL) Urinalysis with reflex microscopic (05/10/2025 10:30 PM EDT) ComponentValueRef RangeTest MethodAnalysis TimePerformed AtPathologist SignatureCOLOR,KAVARFfecmbRwcqjy74/01/2025 10:59 PM [facility] CtrAPPEARANCE,URINETurbid(AA)Clear05/10/2025 10:59 PM [facility] CtrSPECIFICY GRAVITY,URINE1.0221.001 - 1.6150405/10/2025 10:59 PM [facility] CtrPH,URINE5.55.0 - 9.009 10:59 PM [facility] CtrLEUKOCYTE ESTERASE,URINE4+Ckttraqn09/01/2025 10:59 PM [facility] CtrNITRITE,URINENegativeNegative 05/10/2025 10:59 PM [facility] CtrPROTEIN,ZVRPN121Ingfevmx mg/dL05/10/2025 10:59 PM [facility] CtrGLUCOSE,URINE (UA) NormalNormal mg/dL05/10/2025 10:59 PM [facility]tr KETONES,URINE2+Ikxarfhb10/01/2025 10:59 PM [facility] Ctr UROBILINOGEN,URINENormalNormal mg/dL05/10/2025 10:59 PM [facility] CtrBILIRUBIN,AOTIKBqpywjpdRpcdjzet82/01/2025 10:59 PM [facility] CtrOCCULT BLOOD,URINE2+Mywbovuw51/01/2025 10:59 PM EDT [facility] CtrRBC,ADJAK91-841 - 4 [HPF]05/10/2025 11:13 PM EDT [facility] CtrWBC,URINEInnumerable0 - 4 [HPF]05/10/2025 11:13 PM [facility] CtrWBC CLUMP, URINEManyNone Seen [LPF] 05/10/2025 11:13 PM [facility] CtrSQUAMOUS EPITHELIAL CELL,URINE1-20 - 2 [HPF]05/10/2025 11:13 PM [facility] Ctr BACTERIA,URINE2+None Seen [HPF]05/10/2025 11:13 PM [facility] CtrHYALINE CASTS,URINENone0 - 8 [LPF]05/10/2025 11:13 PM [facility] CtrMUCUS,URINE4+(AA)[LPF]05/10/2025 11:13 PM [facility] CtrSpecimen (Source)Anatomical Location / Laterality Collection Method / VolumeCollection TimeReceived HvrkUgccv09/01/2025 10:30 PM EDT05/10/2025 10:55 PM EDT Narrative [facility] - 05/10/2025 11:13 PM EDT Comment c/o urinary symptoms or increased blood pressure Name Collection Type:: Clean-Voided Midstream Authorizing ProviderResult TypeResult StatusShaun MONTILLA URINE ORDERABLESFinal ResultPerforming OrganizationAddressty/[facility] HospitalPhone Number [facility] [address] [place] [address], [facility] [address] [place] [address] * Urine culture (05/10/2025 10:30 PM EDT)ComponentValueRef RangeTest Method Analysis TimePerformed AtPathologist SignatureFR ORGANISMEscherichia coli 05/13/2025 7:51 AM [facility] CtrCOLONY COUNT>100,000 05/13/2025 7:51 AM [facility] CtrSpecimen (Source) Anatomical Location / LateralityCollection Method / VolumeCollection Time Received TimeUrineUrine specimen obtained by clean catch procedure / Unknown 05/10/2025 10:30 PM EDT05/10/2025 10:55 PM EDTComment:Clean-Voided Midstream Narrative Authorizing ProviderResult TypeResult StatusShaun MONTILLA MICROBIOLOGY - GENERAL ORDERABLESFinal ResultPerforming OrganizationAddressCity/State/ZIP Code Phone Number [place] [address] [place] [address], [facility] [address] [place] [address] * US OB PLACENTA (04/15/2025 4:27 PM EDT)Anatomical RegionLateralityModality OtherSpecimen (Source)Anatomical Location / LateralityCollection Method / VolumeCollection TimeReceived Time04/15/2025 4:27 PM EDT Narrative 04/15/2025 4:30 PM EDT [facility] ?[address] ? [place] [address] ? Ultrasound Report ? Signed ? Patient: RUBINA,NATALIE S ?MR#: [id number] ?? : 1985 ?Acct:[id number] ?? Age/Sex: 40 / F ?ADM Date: ?? Loc: [facility] ??250-1 ? Attending Dr: Candice Anderson D.O. ? Ordering Physician: Candice Anderson D.O. ?? Date of Service: 04/15/25 ?? Procedure(s): US OB placenta ?? Accession Number(s): [id number] ? cc: Candice Anderson D.O.; Lynn Jose D.O. ? [facility] ? [address] ? [place] [address] ? Patient Name: ?? NATALIE CESPEDES ? MRN: [facility]:[id number] ? date: 1985 ?Sex: F ?? Assigned Patient Location: [facility] ?? Current Patient Location: ? Accession/Order Number: [id number] ?? Exam Date: 04/15/2025 ??16:26 ?Report Date: [...] Dictation Location: RADIO-PC-19 ? Electronically authenticated by: [id number] ??Y ?? Date: 04/15/2025 ??16:27 ? Dictated By: ?Jacob Almanza M.D. ? Signed By: ?04/15/25 1630 ? DD/ 1627 ? TD/TT: ? Hr Payroll Coordinator: Procedure Note Radiology, Radiologist, - 04/16/2025 [place] [address] Ultrasound Report Signed Patient: NATALIE CESPEDES SMR#: [id number] : 1985Acct:[id number] Age/Sex: 40 / FADM Date: Loc: [facility] 250-[address]: Candice Anderson D.O. Ordering Physician: Candice Anderson D.O. Date of Service: 04/15/25 Procedure(s): US OB placenta Accession Number(s): [id number] cc: Candice Anderson D.O.; Lynn Jose D.O. The [place] [id number] Patient Name: NATALIE CESPEDES MRN: [id number] date: 1985 Sex: F Assigned Patient Location: [facility] Current Patient Location: Accession/Order Number: [id number] Exam Date: 04/15/2025 16:26 Report Date: 04/15/2025 [...] Jr., D.O. 04/15/2025 4:27 PM Dictation Location[facility] Electronically authenticated by: [id number] Y Date: 6:27 Dictated By: Jacob Almanza M.D. Signed By:04/15/25 1630 DD/ 1627 TD/TT: Hr Payroll Coordinator: Authorizing ProviderResult TypeResult StatusCorey Justin DOCLINISYNC IMAGINGFinal Result * US OB CERVICAL LENGTH (04/15/2025 4:27 PM EDT)Anatomical RegionLaterality ModalityOtherSpecimen (Source)Anatomical Location / LateralityCollection Method / VolumeCollection TimeReceived Time04/15/2025 4:27 PM EDT Narrative 04/15/2025 4:30 PM EDT [facility] ?[address] ? [place] [id number] ? Ultrasound Report ? Signed ? Patient: NATALIE CESPEDES S ?MR#: [id number] ?? : 1985 ?Acct:[id number] ?? Age/Sex: 40 / F ?ADM Date: ?? Loc: [facility] ??250-1 ? Attending Dr: Candice Anderson D.O. ? Ordering Physician: Candice Anderson D.O. ?? Date of Service: 04/15/25 ?? Procedure(s): US OB cervical length ?? Accession Number(s): [id number] ? cc: Candice Anderson D.O.; Lynn Jose D.O. ? [facility] ? [address] [place] [address] ? [place] [address] ? Patient Name: ?? NATALIE Kit RUBINA ? MRN: [facility]:[id number] ? date: 1985 ?Sex: F ?? Assigned Patient Location: [facility] ?? Current Patient Location: ? Accession/Order Number: [id number] ?? Exam Date: 04/15/2025 ??16:26 ?Report Date: [...] Dictation Location: RADIO-PC-19 ? Electronically authenticated by: [id number] ??Y ?? Date: 04/15/2025 ??16:27 ? Dictated By: ?Jacob Almanza M.D. ? Signed By: ?04/15/25 1630 ? DD/ 1627 ? TD/TT: ? Hr Payroll Coordinator: Procedure Note Radiology, Radiologist, - 04/16/2025 [place] [address] Ultrasound Report Signed Patient: NATALIE CESPEDES SMR#: [id number] : 1985Acct:[id number] Age/Sex: 40 / FADM Date: Loc: [facility] 250-[address]: Candice Anderson D.O. Ordering Physician: Candice Anderson D.O. Date of Service: 04/15/25 Procedure(s): US OB cervical length Accession Number(s): [id number] cc: Candice Anderson D.O.; Lynn Jose D.O. The [place] [id number] Patient Name: NATALIE CESPEDES MRN: [id number] date: 1985 Sex: F Assigned Patient Location: [facility] Current Patient Location: Accession/Order Number: [id number] Exam Date: 04/15/2025 16:26 Report Date: 04/15/2025 [...] Jr., D.O. 04/15/2025 4:27 PM Dictation Location: [place] [address] Electronically authenticated by: [id number] Y Date: 6:27 Dictated By: Jacob Almanza M.D. Signed By:04/15/25 1630 DD/ 1627 TD/TT: Hr Payroll Coordinator: Authorizing ProviderResult TypeResult StatusCorey Justin DOCLINISYNC IMAGINGFinal Result * (ABNORMAL) [facility] URINE MICROSCOPIC ONLY (04/15/2025 2:55 PM EDT)ComponentValue Ref RangeTest MethodAnalysis TimePerformed AtPathologist SignatureTBH OYV78-20 (A)NONE SEEN #/HPFTBHTBH RBC0-20 - 2 #/HPFTBHBACTERIA [...] CLINISYNC [facility] * (ABNORMAL) [facility] UA (CLEAN/CATCH) RADIOLOGIC TECHNICIAN/MICRO IF IND. (04/15/2025 2:55 PM EDT) [...] Justin DOCLINISYNCFinal Result Performing OrganizationAddressCity/State/ZIP CodePhone Number [facility] * Pap Smear (02/09/2025 12:00 AM EDT)Specimen (Source)Anatomical Location / LateralityCollection Method / VolumeCollection TimeReceived TimeSwabCervical swab / Unknown Narrative Authorizing ProviderResult TypeResult StatusAmy Ishan PALAB CYTOLOGY ORDERABLES Final ResultPerforming OrganizationAddressCity/State/ZIP CodePhone Number EXTERNAL LAB from Last 3 Months or Most Recently Relevant to Health Maintenance Insurance
--- OUTSIDE RECORDS SUMMARY | 2025-07-06 09:30 | XMS_ITS | Encounter Summary ---
Author Organization [facility] Address [address] [place] [address] [address] Care Team Providers Care Medical Transcription Radiology Name Role Phone Unavailable Primary Care Provider Unavailabl e Encounter Details DateTypeDepartmentCare Team (Latest Contact Info)Kxgrrmslrqi45/22/2025bstract [facility] MESSINA [address] [place] [address] Hina Moura [place] Social History Tobacco UseTypesPacks/DayYears UsedDateSmoking Tobacco: Never Assessed Estimated Date of OijmcekaZibxernwYbm68/20/2025Based on UltrasoundSex and Gender InformationValueDate RecordedSex Assigned at QxjgoYcufqc52/21/2025 1:58 PM EST Legal ApkXktrwb17/15/2023 6:58 PM EDTGender NtdryuzyLufopq69/21/2025 1:58 PM EST Sexual SznuzirfnucVjvfsxev62/21/2025 1:58 PM ESTdocumented as of this encounter Plan of Treatment DateTypeDepartmentCare Team (Latest Contact Info)Srsuxfjwine47/29/2025 3:20 PM EDTRoutine [facility] MESSINA [address] [place] [address] Krupa Hernandez PA [address] [place], [facility]11 documented as of this encounter Visit Diagnoses Not on filedocumented in this encounter
--- OUTSIDE RECORDS SUMMARY | 2025-07-06 09:31 | XMS_ITS | Encounter Summary ---
Author Organization [facility] Address [address] [place] [address] Care Team Providers Care Supervisor Wet Pour Name Role Phone Unavailable Primary Care Provider Unavailabl e Encounter Details DateTypeDepartmentCare Team (Latest Contact Info)Vdmxjokamfp37/20/2025amboo flowsheet [facility] MESSINA [address] [place] [address] Greg Anderson DO [address] [place], [facility] Social History Tobacco UseTypesPacks/DayYears UsedDateSmoking Tobacco: Never Assessed Estimated Date of UljppoqtSbmlwniuNik02/20/2025Based on UltrasoundSex and Gender InformationValueDate RecordedSex Assigned at UpxmkLyeose12/21/2025 1:58 PM EST Legal UyrGdqypm74/15/2023 6:58 PM EDTGender VuhdnzeiAquwio91/21/2025 1:58 PM EST Sexual GnwbkmkodiqXgwbawwm78/21/2025 1:58 PM ESTdocumented as of this encounter Plan of Treatment DateTypeDepartmentCare Team (Latest Contact Info)Sapjzjbggqo21/29/2025 3:20 PM EDTRoutine [facility] HICKEYN [address] [place] [address] Krupa Hernandez PA [address] [place], [facility]11 (work) documented as of this encounter Visit Diagnoses Not on filedocumented in this encounter
[2025-07-06 09:46] VITALS: BP 124/75; PULSE 96
== END 2025-07-06 10:28 | disposition home or self-care (01) ==
LOC: US 09:28 → FBC 09:30
PROVIDERS: PCP Family Medicine; Visit Provider Obstetrics & Gynecology
DX: O16.3 Unspecified maternal hypertension, third trimester (principal); Z3A.36 36 weeks gestation of pregnancy
CPT/HCPCS: 76818

== ENCOUNTER 2025-07-07 20:07 | Outpatient (REF) | payer BC, SELFPAY ==
--- OUTSIDE RECORDS SUMMARY | 2025-06-28 09:40 | XMS_ITS | Encounter Summary ---
Author Organization [facility] Address [address] [place] [address] Care Team Providers Care Fur Ironer Name Role Phone Unavailable Primary Care Provider Unavailabl e Reason for Referral * (Routine) - IncompleteSpecialtyDiagnoses / ProceduresReferred By Contact Referred To ContactRadiology Diagnoses Chronic hypertension Palpitations Procedures Echocardiogram 2D complete Greg Anderson DO [address] [place] [address] Phone: tel: fax: Referral IDStatusReasonStart DateExpiration DateVisits RequestedVisits [id number] Perform Procedure / Reason for Visit * ReasonCommentsRoutine Visit Encounter Details DateTypeDepartmentCare Team (Latest Contact Info)Ufzdykjtffb41/20/2025 9:40 AM EDTRoutine [facility] [address] [place] [phone] Greg Anderson DO [address] [place] [address] 35 weeks gestation of ([facility]); Third trimester ([facility]); Gestational diabetes mellitus (GDM), antepartum, gestational diabetes method of control unspecified([facility]); Chronic hypertension; H/O miscarriage, currently ([facility]); UTI symptoms; Palpitations; Heartburn during , antepartum ([facility]) Social History Tobacco UseTypesPacks/DayYears UsedDateSmoking Tobacco: Never Assessed Estimated Date of JmsinrzjZwmsgadqZcf80/20/2025Based on UltrasoundSex and Gender InformationValueDate RecordedSex Assigned at SsslsRcqldk83/21/2025 1:58 PM EST Legal TjeQfauct85/15/2023 6:58 PM EDTGender TalmnkfsQthmhz88/21/2025 1:58 PM EST Sexual JgguiauwapdYqvtbrym81/21/2025 1:58 PM ESTdocumented as of this encounter Last Filed Vital Signs Vital SignReadingTime TakenCommentsBlood Riuxcfds099/801 9:58 AM EDT Pulse--Temperature--Respiratory Rate--Oxygen Saturation--Inhaled Oxygen Concentration--Njwegk311 kg (269 lb)06/28/2025 9:58 AM EDTHeight--Body Mass [...] nursing note reviewed. Exam conducted with a watch dial maker present. Vitals: There is no height or weight on file to calculate BMI. BP: 120/80 No LMP recorded. Patient is . Assessment/Plan ICD-10-CM 1. 35 weeks gestation of ([facility]) Z3A.35 POCT urinalysis dipstick manually resulted US biophysical profile w non stress test 2. Third trimester ([facility]) Z34.93 POCT urinalysis dipstick manually resulted US biophysical profile w non stress test 3. Gestational diabetes mellitus (GDM), antepartum, gestational diabetes method of control unspecified ([facility]) O24.419 POCT urinalysis dipstick manually resulted US biophysical profile w non stress test 4. Chronic hypertension I10 US biophysical profile w non stress test 5. H/O miscarriage, currently ([facility]) O09.299 US biophysical profile w non stress test 6. UTI symptoms R39.9 Urine culture Patient presents today for a routine obstetrics appointment. Patient is currently 35w4d with a Estimated Date of Delivery: 07/29/25. Patient to have GBS at next appointment. Patient is to schedule NST/BPP's at [facility] to get started. Patient voiced that vomiting has increased. Patient to also setup ECHO and EKG at [facility]. Patient to return to clinic in 1 week to sign IOL consents and have GBS obtained. Documented by Sanaz Mcconnell LPN on behalf of: Greg Anderson DO documented in this encounter Plan of Treatment NameTypePriorityAssociated DiagnosesOrder ScheduleUS biophysical profile w non stress testImagingRoutine 35 weeks gestation of ([facility]) Third trimester ([facility]) Gestational diabetes mellitus (GDM), antepartum, gestational diabetes method of control unspecified([facility]) Chronic hypertension H/O miscarriage, currently ([facility]) Expected: 06/28/2025 (Approximate), Expires: 12/27/2025Urine cultureMicrobiology Routine UTI symptoms Ordered: 06/28/2025ECG 12 lead unit performedECGRoutine Chronic hypertension Palpitations Expected: 06/28/2025 (Approximate), Expires: 06/28/2026Echocardiogram 2D completeEchocardiographyRoutine Chronic hypertension Palpitations Expected: 06/28/2025 (Approximate), Expires: 06/28/2027documented as of this encounter Procedures Procedure NamePriorityDate/TimeAssociated DiagnosisCommentsPOCT URINALYSIS URCFVYOJQbwznaj97/20/2025 10:04 AM EDT 35 weeks gestation of ([facility]) Third trimester ([facility]) Gestational diabetes mellitus (GDM), antepartum, gestational diabetes method of control unspecified([facility]) documented in this encounter Results * (ABNORMAL) [...] Location / LateralityCollection Method / VolumeCollection TimeReceived BvtxUojhp33/20/2025 10:04 AM EDT Narrative Authorizing ProviderResult TypeResult StatusCorey Jsutin [facility]EROINT OF CARE TEST ENTER/EDIT ORDERABLESFinal Result documented in this encounter Visit Diagnoses Diagnosis 35 weeks gestation of ([facility]) Third trimester ([facility]) state, incidental Gestational diabetes mellitus (GDM), antepartum, gestational diabetes method of control unspecified([facility]) Chronic hypertension H/O miscarriage, currently ([facility]) UTI symptoms Palpitations Heartburn during , antepartum ([facility]) documented in this encounter
--- OUTSIDE RECORDS SUMMARY | 2025-07-07 15:20 | XMS_ITS | Encounter Summary ---
Author Organization [facility] Address [address] [place] [address] Care Team Providers Care Program Admin Name Role Phone Unavailable Primary Care Provider Unavailabl e Reason for Visit * ReasonCommentsRoutine Visit Encounter Details DateTypeDepartmentCare Team (Latest Contact Info)Xcpwatydfnb61/29/2025 3:20 PM EDTRoutine [facility] [address] [place] [phone] Krupa Hernandez PA [address] [facility] [address] [place], [facility]11 36 weeks gestation of ([facility]); Third trimester ([facility]) Social History Tobacco UseTypesPacks/DayYears UsedDateSmoking Tobacco: Never Assessed Estimated Date of CailzvefVabatkstSio86/20/2025ased on UltrasoundSex and Gender InformationValueDate RecordedSex Assigned at QqmzgJpwjrz37/21/2025 1:58 PM EST Legal TcgJpwrxv50/15/2023 6:58 PM EDTGender UouskvghQoxztb03/21/2025 1:58 PM EST Sexual BslscrjfvvdPipetwlt89/21/2025 1:58 PM ESTdocumented as of this encounter Last Filed Vital Signs Vital SignReadingTime TakenCommentsBlood Wdugagfp640/9007/07/2025 3:36 PM EDT Pulse--Temperature--Respiratory Rate--Oxygen Saturation--Inhaled Oxygen Concentration--Ynjzxa624 kg (275 lb 4 oz)07/07/2025 3:36 PM [...] Assessment/Plan ICD-10-CM 1. 36 weeks gestation of ([facility]) Z3A.36 POCT urinalysis dipstick manually resulted 2. Third trimester ([facility]) Z34.93 CULTURE, GROUP B STREP WITH [...] GROUP B STREP WITH SUSCEPTIBLITYLabRoutine Third trimester ([facility]) Expected: 07/07/2025, Expires: 07/07/2026documented as of this encounter Procedures Procedure NamePriorityDate/TimeAssociated DiagnosisCommentsPOCT URINALYSIS OODKJGEILvbustl93/29/2025 3:48 PM EDT 36 weeks gestation of ([facility]) documented in this encounter Results * [...] / LateralityCollection Method / Volume Collection TimeReceived PmovCwyim58/29/2025 3:48 PM EDT Narrative Authorizing ProviderResult TypeResult Status[facility] TEST ENTER/EDIT ORDERABLESFinal Result documented in this encounter Visit Diagnoses Diagnosis 36 weeks gestation of ([facility]) Third trimester ([facility]) state, incidental documented in this encounter
--- OUTSIDE RECORDS SUMMARY | 2025-07-07 20:11 | XMS_ITS | Encounter Summary ---
Author Organization [facility] Address [address] [place] [address] Care Team Providers Care Sheet Rock Applicator Name Role Phone Unavailable Primary Care Provider Unavailabl e Encounter Details DateTypeDepartmentCare Team (Latest Contact Info)Fcivlwliafv84/29/2025Bamboo flowsheet [facility] [address] [place] [place] [address] Krupa Hernandez PA [address] [place], [facility]11 Social History Tobacco UseTypesPacks/DayYears UsedDateSmoking Tobacco: Never Assessed Estimated Date of IezfdqcsBkdvvmwaSbp35/20/2025Based on UltrasoundSex and Gender InformationValueDate RecordedSex Assigned at LpsoyBqkpid21/21/2025 1:58 PM EST Legal ZuiBbwqfb16/15/2023 6:58 PM EDTGender HalasfsqPycqta67/21/2025 1:58 PM EST Sexual HywdjyhooqeSlqqehxp61/21/2025 1:58 PM ESTdocumented as of this encounter Plan of Treatment Not on file documented as of this encounter Visit Diagnoses Not on filedocumented in this encounter
--- OUTSIDE RECORDS SUMMARY | 2025-07-07 20:11 | XMS_ITS | Clinical Summary ---
Author Organization [facility] tem Address [id number] [address] [place] [address] Care Team Providers Care Food Safety Specialist Name Role Phone Unavailable Primary Care Provider Unavailabl e Allergies Active AllergyReactionsCriticalityNoted DateCommentsSulfa (Sulfonamide Antibiotics)Tzrfidbt36/19/2025 Medications MedicationSigDispense QuantityRefillsLast FilledStart DateEnd DateStatus omeprazole [...] Multigravida of advanced maternal age in second fwdimsohh75/03/2025Estimated Date of DeliveryCommentsYes 07/29/2025ased on Ultrasound Encounters DateTypeDepartmentCare XenuNowsoultfio41/11/2758Cxpkap50/14/7858Eznbnl86/30/2025 Telephone Maternal- Medicine at [facility] [address] [place] [phone] Lilly Rust, FANY from Last 3 Months Family History Medical HistoryRelationNameCommentsHypertensionFatherKidney wcsdwjwEmxcyvM6MG SnizeiJ1PEYjuaqdxj GrandfatherBreast cancerMaternal GrandmotherRelationName StatusCommentsFatherDeceasedMaternal GrandfatherMaternal Grandmother Social [...] money to get more.Never True03/11/2025Estimated Date of DluskhdpHcbatehlMac79/20/2025ased on UltrasoundSex and Gender InformationValue Date RecordedSex Assigned at BirthNot on fileLegal XtyBygwdw46/15/2025 11:20 AM EDTGender IdentityNot on fileSexual OrientationNot on file Last Filed Vital Signs Vital SignReadingTime TakenCommentsBlood Zsulxgeh303/8307 9:25 AM EDT Jfbin028803/11/2025 9:25 AM EDTTemperature--Respiratory Rate--Oxygen Saturation-- Inhaled Oxygen Concentration--Xhvfep498.2 kg (269 lb 6.4 oz)03/11/2025 9:25 AM OKLXiwwtr090.6 cm (5' 4 )03/11/2025 9:25 AM EDTBody Mass Index46.24003/11/2025 9:25 AM EDT Plan of Treatment Health MaintenanceDue DateLast DoneCommentsDepression Hiqrxzldq92/23/1999Adult BMI Follow Up Plan2005DTaP,Tdap and Td Vaccines (1 - Tdap)2006COVID- 19 Vaccine (2 - season)/10/2020Influenza Bmgkiub1505/10/2025 06/15/2022, 05/23/2021dult BMI Ejesbldam30Tobacco Screening Pap Smear06806 Medical Devices Not on file Procedures Procedure NamePriorityDate/TimeAssociated DiagnosisCommentsUS MFM OB FOLLOW-UP, 1 NZCANNgubpjh73/11/2025 3:06 PM EDT Choroid plexus cyst of fetus in miranda Multigravida of advanced maternal age in second trimester Diet controlled gestational diabetes mellitus (GDM) in second trimester Hx of essential hypertension US MFM OB FOLLOW-UP, 1 VTSHBUjtvecg33/14/2025 3:22 PM EDT Choroid plexus cyst of [...] ESTRADA : 1985 SEX: F Accession Number: [id number] ORDERING PHYSICIAN: CANDICE ANDERSON REFERRING PHYSICIAN: CANDICE ANDERSON Coding Procedures ? 24718: Follow-up Ultrasound, per fetus Indication , Screening for follow-up survey, AMA- Supervision of elderly, Chronic hypertension affecting , Obesity in , History OB History ? 2. Para 0 ? [id number] Maternal Assessment Physical Exam ??Height 163 cm, [...] (oz) ? 8 oz EFW by: ?Hadlock (CDV-JM-GH-FL) Extended Tibia ??49.6 mm 29w 5d 43% [address] Superintendent ? 4.4 mm CM ? 7.0 mm [...] Heart/Thorax: 4-chamber view. RVOT view. LVOT view. 7-bpygaw-crvddoz view. Situs. Ductal arch view.Interventricular ? septum. [...] MVP measures 6.2 cm. Recommendations Please see [facility] recommendations from prior clinical and/or ultrasound report documentation. Subsequent follow up or other follow up as clinically determined by primary OB provider unless otherwise specified by [facility]. Results forwarded to ordering provider so they can follow up with the patient as necessary. Procedure Note Sam Sultana MD - 05/20/2025 NAME: RUBINA ESTRADA : 1985 SEX: F Accession Number: [id number] ORDERING PHYSICIAN: CANDICE ANDERSON REFERRING PHYSICIAN: CANDICE ANDERSON Coding Procedures 81815: Follow-up Ultrasound, per fetus Indication , Screening for follow-up survey, AMA- Supervision of elderly, Chronic hypertension affecting , Obesity in , History OB History 2. Para 0 [id number] Maternal Assessment Physical Exam Height 163 cm, [...] EFW (oz) 8 oz EFW by: Hadlock (HAH-RC-DL-FL) Extended Tibia 49.6 mm 29w 5d 43% [address] Superintendent 4.4 mm CM 7.0 mm 51% Nicolaides [...] Heart/Thorax: 4-chamber view. RVOT view. LVOT view. 7-esrsrz-jybcwhl view.Situs. Ductal arch view. Interventricular septum. Great [...]
--- OUTSIDE RECORDS SUMMARY | 2025-07-07 20:11 | XMS_ITS | Encounter Summary ---
Author Organization [facility] Address [address] [facility] [facility] [place] [address] Care Team Providers Care Mineral Mixer Name Role Phone Unavailable Primary Care Provider Unavailabl e Encounter Details DateTypeDepartmentCare Team (Latest Contact Info)Apiwgwdboio48/28/2025linisync Result Encounter [facility] External Department Unsolicited Candice Anderson, DO [address] [facility] [address] [place], [place] [address] Social History Tobacco UseTypesPacks/DayYears UsedDateSmoking Tobacco: Never Assessed Estimated Date of KvhvdplvAhdjyzalIlo31/20/2025Based on UltrasoundSex and Gender InformationValueDate RecordedSex Assigned at ZpkbrToxcyy34/21/2025 1:58 PM EST Legal JcdHfbyap68/15/2023 6:58 PM EDTGender PqogvcrgWpvqil66/21/2025 1:58 PM EST Sexual LscozwtherkXihpakfx16/21/2025 1:58 PM ESTdocumented as of this encounter Plan of Treatment Not on file documented as of this encounter Procedures Procedure NamePriorityDate/TimeAssociated DiagnosisCommentsUS OB BPP W NON-BKFOCD9407/06/2025 9:55 AM EDT documented in this encounter Results * US OB BPP W NON-STRESS (07/06/2025 9:55 AM EDT)Anatomical Region LateralityModalityOtherSpecimen (Source)Anatomical Location / Laterality Collection Method / VolumeCollection TimeReceived Time07/06/2025 9:55 AM EDT Narrative 07/06/2025 9:57 AM EDT [facility] ?[address] ? [place] [address] ? Ultrasound Report ? Signed ? Patient: PALLAVI WEN S ?MR#: [id number] ?? : 1985 ?Acct:[id number] ?? Age/Sex: 40 / F ?ADM Date: 07/06/ ?? Loc: [facility] ??250-1 ? Attending Dr: Candice Anderson D.O. ? Ordering Physician: Candice Anderson D.O. ?? Date of Service: 07/06/25 ?? Procedure(s): US OB BPP w non-stress ?? Accession Number(s): [id number] ? cc: Candice Anderson D.O.; Lynn Jose D.O. ? [facility] ? [address] [facility] ? [place] [address] ? Patient Name: ?? PALLAVI Kit RUBINA ? MRN: [facility]:[id number] ? date: 1985 ?Sex: F ?? Assigned Patient Location: [facility] ?? Current Patient Location: [facility] ?? Accession/Order Number: [id number] ?? Exam Date: 07/06/2025 ??09:32 ?Report Date: 07/06/2025 ??09:55 ? At the request of: ?? CANDICE ??JUSTIN ??DO ? Procedure: ??US OB BPP w non-stress ? BIOPHYSICAL PROFILE: ? CLINICAL INFORMATION: CHRONIC HYPERTENSION I10 ? COMPARISON: 06/29/2025 ? There is a single live intrauterine gestation in cephalic presentation. ??The ?? reported gestational age is 36 weeks 5 days. ??The heart rate measures ?? 135 beats per minute. ? FINDINGS: ? TONE: 1 or more episodes of activity extension and flexion of ?? extremity or opening and closing of the hand ?[Y] ? 2/2 ?? GROSS BODY MOVEMENTS: 3 or more discrete body or limb movements ?[Y] ? 2/2 ?? BREATHING MOVEMENTS: 1 or more episodes of breathing lasting at ?? least 30 seconds ? [Y] ? 2/2 ?? MERCEDES: A single deepest vertical pocket of amniotic fluid greater than 2 cm ? [Y] ? 2/2 ?MERCEDES: 17.1 cm ? Total score: ? 8/8 ? US/US OB BPP w non-stress ?? IMPRESSION: ? NORMAL BIOPHYSICAL PROFILE ? Impression dictated by: Joan Womack M.D. ??07/06/2025 9:55 AM ? Dictation Location: RADIO-PC-02 ? Electronically authenticated by: [id number] ??Y ?? Date: 07/06/2025 ??09:55 ? Dictated By: ?Joan Womack M.D. ? Signed By: ?07/06/ 0957 ? DD/DT: 07/06/ 0955 ? TD/TT: ? Septic Pump Truck Driver: Procedure Note Radiology, Radiologist, - 07/06/2025 [place] [address] Ultrasound Report Signed Patient: PALLAVI WEN SMR#: [id number] : 1985Acct:[id number] Age/Sex: 40 / FADM Date: 07/06/25 Loc: [facility] 250-[address]: Candice Anderson D.O. Ordering Physician: Candice Anderson D.O. Date of Service: 07/06/25 Procedure(s): US OB BPP w non-stress Accession Number(s): [id number] cc: Candice Anderson D.O.; Lynn Jose D.O. The [place] [address] Patient Name: PALLAVI WEN MRN: [facility]:[id number] date: 1985 Sex: F Assigned Patient Location: [facility] Current Patient Location: [facility] Accession/Order Number: [id number] Exam Date: 07/06/2025 09:32 Report Date: 07/06/2025 09:55 At the request of: CANDICE ANDERSON DO Procedure: US OB BPP w non-stress BIOPHYSICAL PROFILE: CLINICAL INFORMATION: CHRONIC HYPERTENSION I10 COMPARISON: 06/29/2025 There is a single live intrauterine gestation in cephalic presentation.The reported gestational age is 36 weeks 5 days. The heart ratemeasures 135 beats per minute. FINDINGS: TONE: 1 or more episodes of activity extension and flexion of extremity or opening and closing of the hand [Y] 2/2 GROSS BODY MOVEMENTS: 3 or more discrete body or limb movements [Y] 2/2 BREATHING MOVEMENTS: 1 or more episodes of breathing lastingat least 30 seconds [Y] 2/2 MERCEDES: A single deepest vertical pocket of amniotic fluid greater than 2 cm [Y] 2/2 MERCEDES: 17.1 cm Total score: 8/8 US/US OB BPP w non-stress IMPRESSION: NORMAL BIOPHYSICAL PROFILE Impression dictated by: Joan Womack M.D. 07/06/2025 9:55 AM Dictation Location: [place] [address] Electronically authenticated by: [id number] Y Date: 9:55 Dictated By: Joan Womack M.D. Signed By:07/06/25956 DD/ 4 TD/TT: Septic Pump Truck Driver: Authorizing ProviderResult TypeResult StatusCorey Justin DOCLINISYNC IMAGINGFinal Result documented in this encounter Visit Diagnoses Not on filedocumented in this encounter
--- OUTSIDE RECORDS SUMMARY | 2025-07-07 20:11 | XMS_ITS | Clinical Summary ---
Author Organization [facility] Address [address], [address] [place] [address] Care Team Providers Care Housing Manager Name Role Phone Unavailable Primary Care [...] InformationValueDate RecordedSex Assigned at BirthNot on fileLegal BpjMsbjwb92/21/2015 4:35 PM EDTGender IdentityNot on fileSexual OrientationNot on file Last Filed Vital Signs Vital SignReadingTime TakenCommentsBlood Hhakyvyx503/8703/30/2016 3:03 PM EDT Turhj03998/22/2016 3:03 PM ZEDDqffcxjwepc01.7 ??C (98.1 ??F)03/30/2016 3:03 PM EDTRespiratory Vkbk952303/30/2016 3:03 PM EDTOxygen Ppfajvwhot40%03/30/2016 3:03 PM EDTInhaled Oxygen Concentration--Mqhnve65.4 kg (186 lb)03/30/2016 3:03 PM EDT Ewjsrh582.6 cm (5' 4 )03/30/2016 3:03 PM EDTBody Mass Index31.9303/30/2016 3:03 PM EDT Plan of Treatment Not on file
--- OUTSIDE RECORDS SUMMARY | 2025-07-07 20:11 | XMS_ITS | Clinical Summary ---
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 Name Role Phone Unavailable Primary Care Provider Unavailabl e Allergies Active AllergyReactionsCriticalityNoted DateCommentsSulfa AntibioticsSwelling High03/30/2016 Other Reaction(s): Swelling of throat Sulfamethoxazole-VpvfueibacpgYauvyuh64/11/2024 Medications MedicationSigDispense QuantityRefillsLast FilledStart DateEnd DateStatus venlafaxine XR (Effexor XR) 150 MG 24 hr capsule Take 150 mg by mouth Daily04/14/2024ctive omeprazole (PriLOSEC) [address] capsule PLEASE SEE ATTACHED FOR DETAILED DBHCKDYCVG49/02/2025Active labetalol (Normodyne) 200 MG tablet Indications:Elevated blood pressure readingTake 1 tablet (200 mg) by mouth in the morning and 1 tablet (200 mg) in the evening and 1 tablet (200 mg) before bedtime. 90 tablet 1104/167585/6Active MV-Min-Fe Fum-FA-DHA ( 1 PO) Take by [...] 1 kit before bedtime. 1 each 5Active metoclopramide (Reglan) 10 MG tablet Indications:Heartburn during , antepartum ([facility]HS-HCC)Take 1 tablet (10 mg) by mouth in the morning and 1 tablet (10 mg) at noon and 1 tablet (10 mg) in the evening. Take before meals. Take 1 tablet by mouth 30 minutes prior to meals 3 times daily as needed for nausea. 90 tablet 5Active pantoprazole (Protonix) 40 MG EC tablet Indications:Heartburn [...] all this for 7 days. 14 capsule 5Active cephalexin (Keflex) 500 MG capsule Take 500 mg by mouth in the morning and 500 mg at noon and 500 mg in the evening and 500 mg before bedtime.Discontinued HYDROmorphone (Dilaudid) 2 MG tablet Take 2 mg by mouth every 6 (six) hours if [id number] phenazopyridine (Pyridium) 100 MG tablet Indications:Urinary tract infection without hematuria, site unspecifiedTake 1 tablet (100 mg) by mouth 3 (three) times a day as needed for bladder spasms for up to 9 doses 9 tablet Discontinued Active Problems Estimated Date of TqdurykxThcsccgmYvs14/20/2025Based on Ultrasound No known active problems Encounters DateTypeDepartmentCare CrwcNxbuvzkyuzw18/29/2025 3:20 PM EDTRoutine [facility] [address] [place] [address] Krupa Olmstead PA 36 weeks gestation of ([facility]); Third trimester ([facility])07/07/2025amboo flowsheet [facility] [address] [place] [address] Krupa Olmstead PA 07/06/2025linisync Result Encounter [facility] External Department Unsolicited Candice Anderson, DO 06/30/2025bstract [facility] [address] [place] [address] Hina Mou[place]AC[place], [place] 06/30/2025Telephone [facility] [address] [place] [address] Hina Moura [place] 06/28/2025 9:40 AM EDTRoutine [facility] [address] [place] [address] Candice Anderson, DO 35 weeks gestation of ([facility]); Third trimester ([facility]); Gestational diabetes mellitus (GDM), antepartum, gestational diabetes method of control unspecified([facility]); Chronic hypertension; H/O miscarriage, currently ([facility]); UTI symptoms; Palpitations; Heartburn during , antepartum ([facility])06/28/2025External Result Encounter [facility]OMS External Department Unsolicited Candice Anderson, DO 06/28/2025amboo flowsheet [facility] [address] [place] [address] Candice Anderson, DO 06/17/2025bstract [facility] [address] [place] [address] Candice Anderson, DO 06/14/2025 11:50 AM EDTRoutine [facility] [address] [place] [address] Suzanne Valdivia NP 33 weeks gestation of ([facility]); Third trimester ([facility]); Gestational diabetes mellitus (GDM), antepartum, gestational diabetes method of control unspecified([facility])06/14/2025linisync Result Encounter [facility] External Department Unsolicited Krupa Olmstead PA 06/14/2025amboo flowsheet [facility] [address] [place] [address] Suzanne Valdivia NP 05/27/2025 8:50 AM EDTRoutine [facility] [address] [place] [address] Krupa Olmstead PA Size of fetus inconsistent with dates, antepartum ([facility]) (Primary Dx); Third trimester ([facility]); 31 weeks gestation of ([facility])05/27/2025amboo flowsheet [facility] [address] [place] [address] Krupa Olmstead PA 05/20/2025bstract [facility] [address] [place] [address] Candice Anderson, 05/13/2025 8:30 AM EDTRoutine [facility] [address] [place] [address] Candice Anderson, 29 weeks gestation of ([facility]); Third trimester ([facility]); Gestational diabetes mellitus (GDM), antepartum, gestational diabetes method of control unspecified([facility]); Urinary tract infection without hematuria, site ofcurvvgyuo19/04/2025amboo flowsheet [facility] [address] [place] [address] Candice Anderson, 05/11/2025External Result Encounter NOMS External Department Unsolicited Printy, Shaun J, MD 05/10/2025External Result Encounter NOMS External Department Unsolicited Shaun Rebollar MD 05/10/2025External Result Encounter [facility]OMS External Department Unsolicited Shaun Rebollar MD 05/10/2025External Result Encounter [facility] External Department Unsolicited Shaun Rebollar MD 05/10/2025External Result Encounter [facility] External Department Unsolicited Shaun Rebollar MD 05/10/2025External Result Encounter [facility] External Department Unsolicited Shaun Rebollar MD 05/04/2025bstract [facility] [address] [place] [address] Candice Anderson, DO 05/04/2025Telephone [facility] [address] [place] [address] Candice Anderson, DO 04/28/2025 1:00 PM EDTRoutine [facility] [address] [place] [address] Krupa Olmstead PA 26 weeks gestation of ([facility]); Second trimester ([facility]); Urinary tract infection with hematuria, site unspecified; Yeast tadvajyaf19/20/2025amboo flowsheet [facility] [address] [place] [address] Krupa Olmstead PA 04/23/2025bstract [facility] [address] [place] [address] Candice Anderson, DO 04/21/20251507Xlpmgr22/07/2025linisync Result Encounter NOMS External Department Unsolicited Candice Anderson, DO 04/15/2025linisync Result Encounter NOMS External Department Unsolicited Candice Anderson, DO 04/15/2025linisync Result Encounter NOMS External Department Unsolicited Candice Anderson, DO 04/15/2025Telephone [facility] [address] [place] [address] [place] [address] Hina Moura MA from Last 3 Months Social History Tobacco UseTypesPacks/DayYears UsedDateSmoking Tobacco: Never Assessed Estimated Date of DjuhbiplSrcqkjpnRuq45/20/2025Based on UltrasoundSex and Gender InformationValueDate RecordedSex Assigned at IexwgOzxvwy51/21/2025 1:58 PM EST Legal PuoRmglkg98/15/2023 6:58 PM EDTGender KhvueobgWzkgjx15/21/2025 1:58 PM EST Sexual GujqlcevpulNccytelj45/21/2025 1:58 PM EST Last Filed Vital Signs Vital SignReadingTime TakenCommentsBlood Tvdfjjam362/9007/07/2025 3:36 PM EDT Pulse--Temperature--Respiratory Rate--Oxygen Saturation--Inhaled Oxygen Concentration--Hkzepv594 kg (275 lb 4 oz)07/07/2025 3:36 PM EDTHeight--Body Mass Index-- Plan of Treatment Health MaintenanceDue DateLast DoneCommentsMMR Vaccines (1 of 1 - Standard series)1988DTaP/Tdap/Td Vaccines (1 - Tdap)1994Varicella Vaccines (1 of 2 - 13+ 2-dose series)2000Hepatitis B Vaccines (1 of 3 - 19+ 3-dose series)2006HPV Vaccines (1 - 3-dose SCDM series)2014HPV/Cotest 2017COVID-19 Vaccine (2 - season)/10/2020Influenza Vaccine (#1)/03/2022, 05/23/2021ervical Cancer Rzbxtipjm47/03/2028 Pap SmearHIB VaccinesAged OutNo longer eligible based [...] to complete this topic Procedures Procedure NamePriorityDate/TimeAssociated DiagnosisCommentsPOCT URINALYSIS GLZDICNWVtbmzhw56/29/2025 3:48 PM EDT 36 weeks gestation of ([facility]) US OB BPP W NON-JWFOUI1607/06/2025 9:55 AM EDT URINARY TRACT INFECTION (HTRX)Hehwydo1406/28/2025 11:26 AM EDT POCT URINALYSIS YWMCRFWSLbjcczz93/20/2025 10:04 AM EDT 35 weeks gestation of ([facility]) Third trimester ([facility]) Gestational diabetes mellitus (GDM), antepartum, gestational diabetes method of control unspecified([facility]) US OB SUMMSA7006/14/2025 12:01 PM EDT POCT URINALYSIS PJFCHEQXYzqokuw28/06/2025 11:49 AM EDT 33 weeks gestation of ([facility]) Third trimester ([facility]) POCT URINALYSIS LKGWKSRHRcxgqlg41/18/2025 8:58 AM EDT Third trimester ([facility]) POCT URINALYSIS NSBDBDIERwdcuqv06/04/2025 8:42 AM EDT 29 weeks gestation of ([facility]) Third trimester ([facility]) US RENAL GULYLKLB03/02/2025 12:52 PM EDT JYTTBNDRML39/01/2025 11:10 PM EDT GYLBFXRYMRG72/01/2025 11:10 PM EDT COMPREHENSIVE METABOLIC MTMSCUKBX46/01/2025 11:10 PM EDT CBC WITH AUTO ALZPAQHNLGTVPWKE77/01/2025 11:10 PM EDT ISXZSUURXFEHENH48/01/2025 11:05 PM EDT AEROBIC DAVE CHARGE (NMIC56)STAT05/10/2025 10:30 PM EDT URINALYSIS JYBKCPUTUI16/01/2025 10:30 PM EDT CULTURE, URINE, QYPVGRBLDGP45/01/2025 10:30 PM EDT URINARY TRACT INFECTION (HTRX)Nawktpz3704/28/2025 1:20 PM EDT POCT URINALYSIS UUHIQWKPTxpyugd42/20/2025 1:15 PM EDT 26 weeks gestation of ([facility]) Second trimester ([facility]) US OB JMZEVFYZ67/07/2025 4:27 PM EDT US OB CERVICAL DLKZNB4204/15/2025 4:27 PM EDT [facility] URINE MICROSCOPIC BRIHQxeltus44/07/2025 2:55 PM EDT [facility] UA (CLEAN/CATCH) GRINDING AND SPRAYING SUPERVISOR/MICRO IF IND.Anvhgtq5004/15/2025 2:55 PM EDT PAP GBGATUzbgraj62/03/2025 12:00 AM EDTfrom Last 3 Months or Most Recently Relevant to Health Maintenance Results * (ABNORMAL) POCT urinalysis dipstick manually resulted (07/07/2025 3:48 PM EDT) Only the most recent of6 resultswithin the time period is included. ComponentValueRef RangeTest MethodAnalysis TimePerformed AtPathologist Signature Color, UAYellowClarity, UAClearGlucose, UANegativeNegative - 2000(110) ++++ mg/dLBilirubin, UANegativeNegative - 4(70) +++ mg/dLKetones, UANegativeNegative - 160(16) ++++ mg/dLSpec Grav, UA1.0301 - 1.03Blood, UANegativeNegative - 50 Javi/mcLpH, UA6.05 - 9Protein, UAPositiveNegative - 2000(20) ++++ mg/dLComment: TraceUrobilinogen, UA0.20.2 - 12 mg/dLLeukocytes, UANegativeNegative - 500+++ Tomas/mcLNitrite, UANegativeNegative - PositiveSpecimen (Source)Anatomical Location / LateralityCollection Method / VolumeCollection TimeReceived TimeSt. Joseph'S [facility] Hospital 07/07/2025 3:48 PM EDT Narrative Authorizing ProviderResult TypeResult StatusCentra [facility] TEST ENTER/EDIT ORDERABLESFinal Result * US OB BPP W NON-STRESS (07/06/2025 9:55 AM EDT)Anatomical Region LateralityModalityOtherSpecimen (Source)Anatomical Location / Laterality Collection Method / VolumeCollection TimeReceived Time07/06/2025 9:55 AM EDT Narrative 07/06/2025 9:57 AM EDT [facility] ?[address] ? [place] [address] ? Ultrasound Report ? Signed ? Patient: NATALIE CESPEDES ?MR#: [id number] ?? : 1985 ?Acct:[id number] ?? Age/Sex: 40 / F ?ADM Date: 07/06/25 ?? Loc: [facility] ??250-1 ? Attending Dr: Candice Anderson D.O. ? Ordering Physician: Candice Anderson D.O. ?? Date of Service: 07/06/25 ?? Procedure(s): US OB BPP w non-stress ?? Accession Number(s): [id number] ? cc: Candice Anderson D.O.; Lynn Jose D.O. ? [facility] ? [address] ? [place] [address] ? Patient Name: ?? NATALIE CESPEDES ? MRN: [facility]:[id number] ? date: 1985 ?Sex: F ?? Assigned Patient Location: [facility] ?? Current Patient Location: [facility] ?? Accession/Order Number: [id number] ?? Exam Date: 07/06/2025 ??09:32 ?Report Date: [...] Dictation Location: RADIO-PC-02 ? Electronically authenticated by: [id number] ??Y ?? Date: 07/06/2025 ??09:55 ? Dictated By: ?Joan Womack M.D. ? Signed By: ?07/06/25 0957 ? DD/ 0955 ? TD/TT: ? C++ Professor: Procedure Note Radiology, Radiologist, MD - 07/06/2025 [place] [address] Ultrasound Report Signed Patient: NATALIE CESPEDES [facility]#: [id number] : 1985Acct:[id number] Age/Sex: 40 / FADM Date: 07/06/25 Loc: [facility] 250-[address]: Candice Anderson D.O. Ordering Physician: Candice Anderson D.O. Date of Service: 07/06/25 Procedure(s): US OB BPP w non-stress Accession Number(s): [id number] cc: Candice Anderson D.O.; Lynn Jose D.O. [place] [address] Patient Name: NATALIE CESPEDES MRN: [facility]:[id number] date: 1985 Sex: F Assigned Patient Location: [facility] Current Patient Location: [facility] Accession/Order Number: [id number] Exam Date: 07/06/2025 09:32 Report Date: 07/06/2025 [...] Womack M.D. 07/06/2025 9:55 AM Dictation Location: [place] [address] Electronically authenticated by: [id number] Y Date: 509:55 Dictated By: Joan Womack M.D. Signed By:07/06/25956 DD/ 4 TD/TT: C++ Professor: Authorizing ProviderResult TypeResult StatusCorey Justin DOCLINISYNC IMAGINGFinal Result * (ABNORMAL) URINARY TRACT INFECTION (HTRX) (06/28/2025 11:26 AM EDT) Only the most recent of2 resultswithin the time period is included. ComponentValueRef RangeTest MethodAnalysis TimePerformed AtPathologist Signature ACINETOBACTER IMZONQJQ022.961 - 24.689 ppm06/29/2025 7:56 AM EDTHealthTrackRx at LabPortACINETOBACTER BAUMANIINot Zoowvggh23.961 - 24.689 ppm06/29/2025 7:56 AM EDTHealthTrackRx at LabPortCITROBACTER MEBGJVRH145.000 - 32.015 ppm06/29/2025 7:56 AM EDTHealthTrackRx at LabPortCITROBACTER FREUNDIINot Ektcluqk61.000 - 32.015 ppm06/29/2025 7:56 AM EDTHealthTrackRx at LabPortENTEROBACTER AEROGENES, HTKLDFG024.000 - 32.290 ppm06/29/2025 7:56 AM EDTHealthTrackRx at LabPort ENTEROBACTER AEROGENES, CLOACAENot Oisbnhtj51.000 - 32.290 ppm06/29/2025 7:56 AM EDTHealthTrackRx at LabPortENTEROCOCCUS FAECALIS, EUZPSGM882.000 - 33.043 ppm 06/29/2025 7:56 AM EDTHealthTrackRx at LabPortENTEROCOCCUS FAECALIS, FAECIUMNot Opmzeekb91.000 - 33.043 ppm06/29/2025 7:56 AM EDTHealthTrackRx at LabPort ESCHERICHIA COLI20.735(A)23.000 - 28.500 ppm06/29/2025 7:56 AM EDTHealthTrackRx at LabPortESCHERICHIA COLIDetected(A)23.000 - 28.500 ppm06/29/2025 7:56 AM EDT [facility] at LabPortKLEBSIELLA PNEUMONIAE, TKPXMKA421.000 - 31.865 ppm 06/29/2025 7:56 AM EDTHealthTrackRx at LabPortKLEBSIELLA PNEUMONIAE, OXYTOCANot Cpqokmzg61.000 - 31.865 ppm06/29/2025 7:56 AM EDTHealthTrackRx at LabPort MORGANELLA KESLULAA374.961 - 24.689 ppm06/29/2025 7:56 AM EDTHealthTrackRx at LabPortMORGANELLA MORGANIINot Gogpekyk59.961 - 24.689 ppm06/29/2025 7:56 AM EDT [facility] at LabPortPROTEUS MIRABILIS, ZJLSJWNV314.000 - 28.500 ppm 06/29/2025 7:56 AM EDTHealthTrackRx at LabPortPROTEUS MIRABILIS, VULGARISNot Sqsnwvnq40.000 - 28.500 ppm06/29/2025 7:56 AM EDTHealthTrackRx at [facility] PSEUDOMONAS CHVDCXIWSF847.000 - 31.801 ppm06/29/2025 7:56 AM EDTHealthTrackRx at LabPortPSEUDOMONAS AERUGINOSANot Oxpafzzt33.000 - 31.801 ppm06/29/2025 7:56 AM EDTHealthTrackRx at LabPortSTAPHYLOCOCCUS RDSBYL669.000 - 31.595 ppm06/29/2025 7:56 AM EDTHealthTrackRx at LabPortSTAPHYLOCOCCUS AUREUSNot Uywtzjvz35.000 - 31.595 ppm06/29/2025 7:56 AM EDTHealthTrackRx at LabPortSTREPTOCOCCUS AGALACTIAE (GROUP B STREP)026.000 - 32.435 ppm06/29/2025 7:56 AM EDTHealthTrackRx at LabPortSTREPTOCOCCUS AGALACTIAE (GROUP B STREP)Not Ibwhhefq51.000 - 32.435 ppm 06/29/2025 7:56 AM EDTHealthTrackRx at LabPortCANDIDA ALBICANS, PARAPSILOSIS, REACAYHOUQ012.000 - 30.347 ppm06/29/2025 7:56 AM EDTHealthTrackRx at [facility] RINA ALBICANS, PARAPSILOSIS, TROPICALISNot Ubiofvax85.000 - 30.347 ppm 06/29/2025 7:56 AM EDTHealthTrackRx at LabPortCANDIDA IYLCSWGY257.000 - 31.618 ppm06/29/2025 7:56 AM EDTHealthTrackRx at LabPortCANDIDA GLABRATANot Detected 23.000 - 31.618 ppm06/29/2025 7:56 AM EDTHealthTrackRx at LabPortCANDIDA KRUSEI0 23.000 - 30.873 ppm06/29/2025 7:56 AM EDTHealthTrackRx at LabPortCANDIDA KRUSEI Not Dltrhmyl50.000 - 30.873 ppm06/29/2025 7:56 AM EDTHealthTrackRx at [facility] SERRATIA SSBIORQRJL530.000 - 31.581 ppm06/29/2025 7:56 AM EDTHealthTrackRx at [facility] SystemSERRATIA MARCESCENSNot Jmocryxz38.000 - 31.581 ppm06/29/2025 7:56 AM EDT [facility] SystemSTREPTOCOCCUS PYOGENES (GROUP A STREP)019.961 - 24.689 ppm06/29/2025 7:56 AM EDTHealthTrackRx at [facility] SystemSTREPTOCOCCUS PYOGENES (GROUP A STREP)Not Xeydmhwz54.961 - 24.689 ppm06/29/2025 7:56 AM EDTHealthTrackRx at [facility] SystemSTAPHYLOCOCCUS EPIDERMIDIS, HAEMOLYTICUS, LUGDUNENSIS, SAPROPHYTICUS (XBGHG869.961 - 24.689 ppm06/29/2025 7:56 AM EDTHealthTrackRx at [facility] STAPHYLOCOCCUS EPIDERMIDIS, HAEMOLYTICUS, LUGDUNENSIS, SAPROPHYTICUS (URINANot Tminpcjz69.961 - 24.689 ppm06/29/2025 7:56 AM EDTHealthTrackRx at [facility] STAPHYLOCOCCUS EPIDERMIDIS, HAEMOLYTICUS, LUGDUNENSIS, SAPROPHYTICUS (URINA0 19.961 - 24.689 ppm06/29/2025 7:56 AM EDTHealthTrackRx at [facility] SystemSTAPHYLOCOCCUS EPIDERMIDIS, HAEMOLYTICUS, LUGDUNENSIS, SAPROPHYTICUS (URINANot Lzilelfk98.961 - 24.689 ppm06/29/2025 7:56 AM EDTHealthTrackRx at [facility] SystemTET B, TET M26.455(A) 23.000 - 27.500 ppm06/29/2025 7:56 AM EDTHealthTrackRx at [facility] SystemTET B, TET M Detected(A)23.000 - 27.500 ppm06/29/2025 7:56 AM EDTHealthTrackRx at [facility] Specimen (Source)Anatomical Location / LateralityCollection Method / Volume Collection TimeReceived NwkqIcosf63/20/2025 11:26 AM EDT1 1:41 AM EDT Narrative Authorizing ProviderResult TypeResult StatusCorey Justin DOLAB BLOOD ORDERABLES Final ResultPerforming OrganizationAddressCity/State/ZIP CodePhone Number [facility] [address] [place] [address] * US OB GROWTH (06/14/2025 12:01 PM EDT)Anatomical RegionLateralityModalityOther Specimen (Source)Anatomical Location / LateralityCollection Method / Volume Collection TimeReceived Time06/14/2025 12:01 PM EDT Narrative 06/14/2025 12:04 PM EDT [facility] ?[address] ? [place], [facility] ? Ultrasound Report ? Signed ? Patient: NATALIE CESPEDES S ?MR#: [id number] ?? : 1985 ?Acct:[id number] ?? Age/Sex: 40 / F ?ADM Date: 06/14/25 ?? Loc: US ? Attending Dr: Krupa Olmstead ? Ordering Physician: Krupa Olmstead ?? Date of Service: 06/14/25 ?? Procedure(s): US OB growth ?? Accession Number(s): [id number] ? cc: Krupa Olmstead; Lynn Jose D.O. ? [facility] ? [address] ? [place] [address] ? Patient Name: ?? NATALIE CESPEDES ? MRN: [facility]:[id number] ? date: 1985 ?Sex: F ?? Assigned Patient Location: US ?? Current Patient Location: US ?? Accession/Order Number: [id number] ?? Exam Date: 06/14/2025 ??10:58 ?Report Date: [...] D.O. ??06/14/2025 12:01 PM ? Dictation Location: [facility]-- ? Electronically authenticated by: [id number] ??Y ?? Date: 06/14/2025 ??12:01 ? Dictated By: ?Jacob Almanza M.D. ? Signed By: ?06/14/25 1204 ? DD/ 1201 ? TD/TT: ? C++ Professor: Procedure Note Radiology, Radiologist, - 06/14/2025 [place] [address] Ultrasound Report Signed Patient: NATALIE CESPEDES SMR#: [id number] : 1985Acct:[id number] Age/Sex: 40 / FADM Date: 06/14/25 Loc: US Attending Dr: Krupa Olmstead Ordering Physician: Krupa Olmstead Date of Service: 06/14/25 Procedure(s): US OB growth Accession Number(s): [id number] cc: Krupa Olmstead; Lynn Jose D.O. [place] [id number] Patient Name: NATALIE CESPEDES MRN: [facility]:[id number] date: 1985 Sex: F Assigned Patient Location: Current Patient Location: Accession/Order Number: [id number] Exam Date: 06/14/2025 10:58 Report Date: 06/14/2025 [...] Appropriate growth by dating. Impression dictated by: Fredi Ovalles Jr.ODamion 06/14/2025 12:01 PM Dictation Location: [facility] [place] [facility] Electronically authenticated by: [id number] Y Date: :01 Dictated By: Jacob Almanza M.D. Signed By:06/14/25 1204 DD/ 1201 TD/TT: C++ Professor: Authorizing ProviderResult TypeResult StatusAmy Ishan PACLINISYNC IMAGINGFinal Result * US renal complete (05/11/2025 [...] 05/11/25 1252 Narrative 05/11/2025 12:55 PM EDT [facility] ?[facility] [place] ?[address] ? [place] [address] ? Ultrasound Report ? Signed ? Patient: Rubina,Natalie S ?MR#: [id number] ?? [id number] ? : 1985 ?Acct:[id number] ? Age/Sex: 40 / F ?ADM Date: 05/10/25 ? Loc: 3E ?Room: ??5J6482-1 ?Type: REG CLI ?? Attending Dr: Shaun [...] Procedure Note Deshaun Alanis MD - 05/11/2025 [facility] [address] [address] Ultrasound Report Signed Patient: Natalie Cespedes [facility]#: [id number] : 1985Acct:[id number] Age/Sex: 40 / FADM Date: 05/10/25 Loc: Room: 2X5709-8Oubg: REG CLI Attending Dr: Shaun Rebollar MD [...] Alanis M.D. 05/11/2025 12:52 PM Dictation Location: [place] [address] Tech: Chantell Blake Transcribed By: [facility] 05/11/25 1252 Dictated By: Deshaun Alanis II, MD 05/11/25 1252 Signed By: <Electronically signed by Deshaun Alanis II, MD inOV> 05/11/25 1252 Authorizing ProviderResult TypeResult StatusShaun Rebollar MDIMG US PROCEDURES Final Result * (ABNORMAL) CBC auto differential (05/10/2025 11:10 PM EDT)ComponentValueRef RangeTest MethodAnalysis TimePerformed AtPathologist AtnuzntkvARY17.3(H)3.8 - 11.6 [CFU]/mL05/10/2025 11:25 PM [facility] CtrUNCORRECTED WHITE BLOOD COUNT19.3(H)3.8 - 11.6 10*3/uL05/10/2025 11:25 PM [facility] CtrRBC4.053.60 - 5.00 10*6/uL05/10/2025 11:25 PM [facility] WixNWERTCYTZV78.3(L)11.8 - 15.4 g/dL05/10/2025 11:25 PM [facility] MyvNPNMHIPWGA21.0(L)34.0 - 46.4 %05/10/2025 11:25 PM [facility] VdaPNB35.480 - 100 fL05/10/2025 11:25 PM EDT [facility] XxqPLW02.924.7 - 34.3 pg05/10/2025 11:25 PM [facility]Ohio[facility] ZtbZMQL33.232.0 - 35.0 g/dL05/10/2025 11:25 PM [facility] CtrRED CELL DISTRIBUTION WIDTH, RDW14.611.9 - 15.3 %05/10/2025 11:25 PM [facility] CtrPLATELET OZFER499458 - 450 10*3/uL05/10/2025 11:25 PM [facility] CtrMEAN PLATELET VOLUME, MPV7.36.3 - 10.7 fL05/10/2025 11:25 PM [facility] CtrNEUTROPHILS, %91.2. %05/10/2025 11:25 PM [facility]tr LYMPHOCYTES, %4.8. %05/10/2025 11:25 PM [facility] MONOCYTE/MACROPHAGE, %3.2. %05/10/2025 11:25 PM [facility] CtrEOSINOPHILS, %0.4. %05/10/2025 11:25 PM [facility] BASOPHILS, %0.4. %05/10/2025 11:25 PM [facility] CtrNRBC0.1 0 - 0.5 /100{WBC}05/10/2025 11:25 PM [facility] [id number](H)1.8 - 7.7 10*3/uL05/10/2025 11:25 PM [facility] CtrLYMPHOCYTES0.9(L)1.00 - 4.8 10*3/uL05/10/2025 11:[facility]trMONOCYTES0.60.0 - 0.8 10*05/10/2025 11:25 PM EDT [facility] CtrEOSINOPHILS0.10.0 - 0.45 10*05/10/2025 11:25 PM [facility] CtrBASOPHILS0.10.0 - 0.2 10*05/10/2025 11:25 PM [facility] CtrSpecimen (Source)Anatomical Location / LateralityCollection Method / VolumeCollection TimeReceived TimeBlood (Blood)05/10/2025 11:10 PM EDT05/10/2025 11:18 PM EDT Narrative Authorizing ProviderResult TypeResult StatusShaun MONTILLA BLOOD ORDERABLESFinal ResultPerforming OrganizationAddressCity/State/ZIP CodePhone Number [facility] [address] [place] [address], [facility] [address] [place] [address] * Lipase (05/10/2025 11:10 PM EDT)ComponentValueRef RangeTest MethodAnalysis TimePerformed AtPathologist [id number] - 82.0 U/L05/10/2025 11:45 PM [facility] CtrSpecimen (Source)Anatomical Location / LateralityCollection Method / VolumeCollection TimeReceived TimeOther Topography unknown / Wfiktpf1005/10/2025 11:10 PM EDT05/10/2025 11:18 PM EDT Narrative Authorizing ProviderResult TypeResult StatusShaun MONTILLA BLOOD ORDERABLESFinal ResultPerforming OrganizationAddressCity/State/ZIP CodePhone Number [facility] [address] [place] [address], [facility] [address] [place] [address] * Amylase (05/10/2025 11:10 PM EDT)ComponentValueRef RangeTest MethodAnalysis TimePerformed AtPathologist AkhodtqlzBEGJDKB0083 - 103 U/L05/10/2025 11:45 PM EDBl[facility] CtrSpecimen (Source)Anatomical Location / LateralityCollection Method / VolumeCollection TimeReceived TimeOther Topography unknown / Isdhrlb4505/10/2025 11:10 PM EDT05/10/2025 11:18 PM EDT Narrative Authorizing ProviderResult TypeResult StatusShaun Rebollar MDLAB BLOOD ORDERABLESFinal ResultPerforming OrganizationAddressCity/State/ZIP CodePhone Number [facility] [address] [place] [address], [facility] [address] [place] [address] * (ABNORMAL) Comprehensive metabolic panel (05/10/2025 11:10 PM EDT)Component ValueRef RangeTest MethodAnalysis TimePerformed AtPathologist SignatureGlucose 111(H)70 - 100 mg/dL05/10/2025 11:45 PM [facility] Comment: Random Glucose Reference Range is dependent on time and content of last meal. Glucose of more than 200 mg/dL in a nonstressed, ambulatory subject supports the diagnosis of Diabetes Mellitus. ADA recommended reference range JMZ325 - 25 mg/dL05/10/2025 11:45 PM [facility] CtrCREATININE 0.680.60 - 1.20 mg/dL05/10/2025 11:45 PM [facility] ESTIMATED GFR>60. 11:45 PM [facility] PceWvkdpa370 136 - 145 mmol/L05/10/2025 11:45 PM [facility] CtrPotassium, Bld3.93.5 - 5.1 mmol/L05/10/2025 11:45 PM [facility] Uqtnwnrx14058 - 107 mmol/L05/10/2025 11:45 PM [facility] Carbon Cadqhmb56.3(L)21.0 - 31.0 mmol/L05/10/2025 11:45 PM [facility] CtrAnion Gap14.66.0 - 15.009 11:45 PM [facility] CtrCalcium9.18.6 - 10.3 mg/dL05/10/2025 11:45 PM [facility] CtrTOTAL PROTEIN6.3(L)6.4 - 8.9 g/dL05/10/2025 11:45 PM [facility] CtrALBUMIN LEVEL3.63.5 - 5.7 g/dL05/10/2025 11:45 PM EDT [facility] CtrGLOBULIN2.7g/dL05/10/2025 11:45 PM [facility] CtrALBUMIN/GLOBULIN RATIO1.309 11:45 PM [facility] CtrBILIRUBIN,TOTAL0.40.3 - 1.0 mg/dL05/10/2025 11:45 PM EDT [facility] CtrASPARTATE AMINO SEBIYAHRYQA7724 - 39 U/L05/10/2025 11:45 PM [facility] CtrALANINE ZQVIVHSDCPSCBHFW915 - 52 U/L 05/10/2025 11:45 PM [facility] CtrALKALINE FJTEPLYUNKV0268 - 104 U/L05/10/2025 11:45 PM [facility] CtrCREATININE CLR CALC GQOWWFKQ925.8705/10/2025 11:45 PM [facility] CtrSpecimen (Source)Anatomical Location / LateralityCollection Method / VolumeCollection TimeReceived TimeOtherTopography unknown / Ofyeshf2705/10/2025 11:10 PM EDT 05/10/2025 11:18 PM EDT Narrative Authorizing ProviderResult TypeResult StatusShaun Rebollar MDLAB BLOOD ORDERABLESFinal ResultPerforming OrganizationAddressCity/State/[facility] CodePhone Number [facility] [address] [place] [address], [facility] [address] [place] [address] * fibronectin (05/10/2025 11:05 PM EDT)ComponentValueRef RangeTest Method Analysis TimePerformed AtPathologist SignatureFETAL FIBRONECTINNegative Yhhikrew76/02/2025 12:02 AM [facility] CtrSpecimen (Source) Anatomical Location / LateralityCollection Method / VolumeCollection Time Received TimeOtherTopography unknown / Wuswsbf2805/10/2025 11:05 PM EDT 05/10/2025 11:19 PM EDT Narrative [facility] - 05/11/2025 12:02 AM EDT Comment patients 22 - 34 6/7 weeks prior to vaginal exam Authorizing ProviderResult TypeResult StatusShaun Rebollar MDLAB BODY FLUIDS AND STOOLS ORDERABLESFinal ResultPerforming OrganizationAddressCity/State/ZIP Code Phone Number [facility] [address] [place] [address], [facility] [address] [place] [address] * (ABNORMAL) AEROBIC DAVE CHARGE (NMIC56) (05/10/2025 10:30 PM EDT)ComponentValue Ref RangeTest MethodAnalysis TimePerformed AtPathologist SignatureAMIKACIN<16 (S)05/13/2025 7:51 AM [facility] CtrAMOXACILLIN/K CLAVULANATE<8/4(S)05/13/2025 7:51 AM [facility] AMPICILLIN>16(R)05/13/2025 7:51 AM [facility] AMPICILLIN/DCSFEOBCS88/8(I)05/13/2025 7:51 AM [facility] CtrAZTREONAM<4(S)05/13/2025 7:51 AM [facility] CtrCEFAZOLIN <2(S)05/13/2025 7:51 AM [facility] CtrCEFEPIME<2(S) 05/13/2025 7:51 AM [facility] CtrCEFTAZIDIME<1(S)05/13/2025 7:51 AM [facility] CtrCEFTAZIDIME/AVIBACTAM<4(S)05/13/2025 7:51 AM [facility] CtrCEFTOLOZANE/TAZOBACTAM<2(S) 05/13/2025 7:51 AM [facility] CtrCEFTRIAXONE<1(S)05/13/2025 7:51 AM [facility] CtrCEFUROXIME<4(S)05/13/2025 7:51 AM [facility] CtrCIPROFLOXACIN<0.25(S)05/13/2025 7:51 AM [facility] CtrERTAPENEM<0.5(S)05/13/2025 7:51 AM [facility] CtrGENTAMICIN<2(S)05/13/2025 7:51 AM [facility] CtrLEVOFLOXACIN<0.5(S)05/13/2025 7:51 AM [facility] CtrMEROPENEM<1(S)05/13/2025 7:51 AM [facility] MEROPENEM/VABORBACTAM<2(S)05/13/2025 7:51 AM [facility] NITROFURANTOIN<32(S)05/13/2025 7:51 AM [facility] PIPERACILLIN/TAZOBACTAM<8(S)05/13/2025 7:51 AM [facility] CtrTETRACYCLINE<4(S)05/13/2025 7:51 AM [facility] TIGECYCLINE<2(S)05/13/2025 7:51 AM [facility] CtrTOBRAMYCIN <2(S)05/13/2025 7:51 AM [facility] TRIMETHOPRIM/SULFAMETHOXAZOLE<0.5/9.5(S)05/13/2025 7:51 AM [facility] CtrSpecimen (Source)Anatomical Location / Laterality Collection Method / VolumeCollection TimeReceived TimeUrineUrine specimen obtained by clean catch procedure / Wuxywus2505/10/2025 10:30 PM EDT05/10/2025 10:55 PM EDTComment:Clean-Voided Midstream Narrative Authorizing ProviderResult TypeResult StatusShaun Rebollar MDFIRELANDSFinal ResultPerforming OrganizationAddressCity/State/[facility] CodePhone Number [facility] [address] [place] [address], [facility] [address] [place] [address] * (ABNORMAL) Urinalysis with reflex microscopic (05/10/2025 10:30 PM EDT) ComponentValueRef RangeTest MethodAnalysis TimePerformed AtPathologist SignatureCOLOR,LBBNHSziikeRbofld48/01/2025 10:59 PM [facility] CtrAPPEARANCE,URINETurbid(AA)Clear05/10/2025 10:59 PM [facility] CtrSPECIFICY GRAVITY,URINE1.0221.001 - 1.8802805/10/2025 10:59 PM [facility] CtrPH,URINE5.55.0 - 9.009 10:59 PM [facility] CtrLEUKOCYTE ESTERASE,URINE4+Qgeerkhs81/01/2025 10:59 PM [facility] CtrNITRITE,URINENegativeNegative 05/10/2025 10:59 PM [facility] CtrPROTEIN,YHVOO489Srhogipv mg/dL05/10/2025 10:59 PM [facility] CtrGLUCOSE,URINE (UA) NormalNormal mg/dL05/10/2025 10:59 PM [facility] KETONES,URINE2+Neshulvp17/01/2025 10:59 PM [facility] UROBILINOGEN,URINENormalNormal mg/dL05/10/2025 10:59 PM [facility] CtrBILIRUBIN,KJDRKTsyiuvptWymdmnrq65/01/2025 10:59 PM [facility] CtrOCCULT BLOOD,URINE2+Pswdndcj38/01/2025 10:59 PM [facility] CtrRBC,WFHWY37-673 - 4 [HPF]05/10/2025 11:13 PM [facility] CtrWBC,URINEInnumerable0 - 4 [HPF]05/10/2025 11:13 PM [facility] CtrWBC CLUMP, URINEManyNone Seen [LPF] 05/10/2025 11:13 PM [facility] CtrSQUAMOUS EPITHELIAL CELL,URINE1-20 - 2 [HPF]05/10/2025 11:13 PM [facility] BACTERIA,URINE2+None Seen [HPF]05/10/2025 11:13 PM [facility] CtrHYALINE CASTS,URINENone0 - 8 [LPF]05/10/2025 11:13 PM [facility] CtrMUCUS,URINE4+(AA)[LPF]05/10/2025 11:13 PM [facility] CtrSpecimen (Source)Anatomical Location / Laterality Collection Method / VolumeCollection TimeReceived RaahMbmxi02/01/2025 10:30 PM EDT05/10/2025 10:55 PM EDT Narrative [facility] - 05/10/2025 11:13 PM EDT Comment c/o urinary symptoms or increased blood pressure Name Collection Type:: Clean-Voided Midstream Authorizing ProviderResult TypeResult StatusShaun MONTILLA URINE ORDERABLESFinal ResultPerforming OrganizationAddressCity/[facility]/ZIP [facility] [place]Phone Number [facility] [address] [place] [address], [facility] [address] [place] [address] * Urine culture (05/10/2025 10:30 PM EDT)ComponentValueRef RangeTest Method Analysis TimePerformed AtPathologist SignatureFRMC ORGANISMEscherichia coli 05/13/2025 7:51 AM [facility] CtrCOLONY COUNT>100,000 05/13/2025 7:51 AM [facility] CtrSpecimen (Source) Anatomical Location / LateralityCollection Method / VolumeCollection Time Received TimeUrineUrine specimen obtained by clean catch procedure / Unknown 05/10/2025 10:30 PM EDT05/10/2025 10:55 PM EDTComment:Clean-Voided Midstream Narrative Authorizing ProviderResult TypeResult Jeff MONTILLA MICROBIOLOGY - GENERAL ORDERABLESFinal ResultPerforming OrganizationAddressCity/State/ZIP Code Phone Number [facility] [address] [place] [address], [facility] [address] [place] [address] * US OB PLACENTA (04/15/2025 4:27 PM EDT)Anatomical RegionLateralityModality OtherSpecimen (Source)Anatomical Location / LateralityCollection Method / VolumeCollection TimeReceived Time04/15/2025 4:27 PM EDT Narrative 04/15/2025 4:30 PM EDT [facility] ?[address] ? [place] [address] ? Ultrasound Report ? Signed ? Patient: NATALIE CESPEDES ?MR#: [id number] ?? : 1985 ?Acct:[id number] ?? Age/Sex: 40 / F ?ADM Date: ?? Loc: [facility] ??250-1 ? Attending Dr: Candice Anderson D.O. ? Ordering Physician: Candice Anderson D.O. ?? Date of Service: 04/15/25 ?? Procedure(s): US OB placenta ?? Accession Number(s): [id number] ? cc: Candice Anderson D.O.; Lynn Jose D.O. ? [facility] ? [address] ? [place] [address] ? Patient Name: ?? NATALIE CESPEDES ? MRN: [facility]:[id number] ? date: 1985 ?Sex: F ?? Assigned Patient Location: [facility] ?? Current Patient Location: ? Accession/Order Number: [id number] ?? Exam Date: 04/15/2025 ??16:26 ?Report Date: [...] ? Impression dictated by: Jacob Almanza Jr., D.ODamion ??04/15/2025 4:27 PM ? Dictation Location: [facility] ? Electronically authenticated by: [id number] ??Y ?? Date: 04/15/2025 ??16:27 ? Dictated By: ?Jacob Almanza M.D. ? Signed By: ?04/15/25 1630 ? DD/ 1627 ? TD/TT: ? C++ Professor: Procedure Note Radiology, Radiologist, MD - 04/16/2025 [place] [address] Ultrasound Report Signed Patient: NATALIE CESPEDES [facility]#: [id number] : 1985Acct:[id number] Age/Sex: 40 / FADM Date: Loc: [facility] 250-[address]: Candice Anderson D.O. Ordering Physician: Candice Anderson D.O. Date of Service: 04/15/25 Procedure(s): US OB placenta Accession Number(s): [id number] cc: Candice Anderson D.O.; Lynn Jose D.O. The [place] [id number] Patient Name: NATALIE CESPEDES MRN: [facility]:[id number] date: 1985 Sex: F Assigned Patient Location: [facility] Current Patient Location: Accession/Order Number: [id number] Exam Date: 04/15/2025 16:26 Report Date: 04/15/2025 [...] Jr., D.O. 04/15/2025 4:27 PM Dictation Location: [place] [address] Electronically authenticated by: [id number] Y Date: 6:27 Dictated By: Jacob Almanza M.D. Signed By:04/15/25 1630 DD/ 1627 TD/TT: C++ Professor: Authorizing ProviderResult TypeResult StatusCorey Justin DOCLINISYNC IMAGINGFinal Result * US OB CERVICAL LENGTH (04/15/2025 4:27 PM EDT)Anatomical RegionLaterality ModalityOtherSpecimen (Source)Anatomical Location / LateralityCollection Method / VolumeCollection TimeReceived Time04/15/2025 4:27 PM EDT Narrative 04/15/2025 4:30 PM EDT [facility] ?[address] ? [place] [address] ? Ultrasound Report ? Signed ? Patient: RUBINA,NATALIE S ?MR#: [id number] ?? : 1985 ?Acct:[id number] ?? Age/Sex: 40 / F ?ADM Date: ?? Loc: [facility] ??250-1 ? Attending Dr: Candice Anedrson D.O. ? Ordering Physician: Candice Anderson D.O. ?? Date of Service: 04/15/25 ?? Procedure(s): US OB cervical length ?? Accession Number(s): [id number] ? cc: Candice Anderson D.O.; Lynn Jose D.O. ? [facility] ? [address] ? [place] [address] ? Patient Name: ?? NATALIE CESPEDES ? MRN: [facility]:[id number] ? date: 1985 ?Sex: F ?? Assigned Patient Location: [facility] ?? Current Patient Location: ? Accession/Order Number: [id number] ?? Exam Date: 04/15/2025 ??16:26 ?Report Date: [...] Unremarkable placental ultrasound. ? Impression dictated by: Lily Ovalles Jr..O. ??04/15/2025 4:27 PM ? Dictation Location: [facility] ? Electronically authenticated by: [id number] ??Y ?? Date: 04/15/2025 ??16:27 ? Dictated By: ?Jacob Almanza M.D. ? Signed By: ?04/15/25 1630 ? DD/ 1627 ? TD/TT: ? C++ Professor: Procedure Note Radiology, Radiologist, MD - 04/16/[address] [address] Ultrasound Report Signed Patient: RUBINANATALIE QUINN [facility]#: [id number] : 1985Acct:[id number] Age/Sex: 40 / FADM Date: Loc: [facility] 250-[address]: Candice Anderson D.O. Ordering Physician: Candice Anderson D.O. Date of Service: 04/15/25 Procedure(s): US OB cervical length Accession Number(s): [id number] cc: Candice Anderson D.O.; Lynn Jose D.O. [place] [address] Patient Name: NATALIE CESPEDES MRN: [facility]:[id number] date: 1985 Sex: F Assigned Patient Location: [facility] Current Patient Location: Accession/Order Number: [id number] Exam Date: 04/15/2025 16:26 Report Date: 04/15/2025 [...] Jr., D.O. 04/15/2025 4:27 PM Dictation Location: [place] [address] Electronically authenticated by: [id number] Y Date: 6:27 Dictated By: Jacob Almanza M.D. Signed By:04/15/25 1630 DD/ 1627 TD/TT: C++ Professor: Authorizing ProviderResult TypeResult StatusCorereba Anderson DOCLINISYNC IMAGINGFinal Result * (ABNORMAL) [facility]H URINE MICROSCOPIC ONLY (04/15/2025 2:55 PM EDT)ComponentValue Ref RangeTest MethodAnalysis TimePerformed AtPathologist SignatureTBH YWH71-50 (A)NONE SEEN #/HPFTBHTBH RBC0-20 - 2 #/HPFTBHBACTERIA URINELARGE(A)NONE SEEN #/HPFTBHMUCUS URINEMODERATE(A)NONE SEENTBHSQUAMOUS EPITHELIAL CELL URINE MODERATE(A)NONE/RARE #/LPFTBHCRYSTALS SEEN?None SeenNone Seen #/HPFTBHCAST SEEN?NONE SEENNONE SEEN #/LPFTBHURINE CULTURE INDICATEDYES-LCTBHSpecimen (Source)Anatomical Location / LateralityCollection Method / VolumeCollection TimeReceived Time04/15/2025 2:55 PM EDT04/15/2025 3:05 PM EDT Narrative [facility] - 04/15/2025 3:33 PM EDT Authorizing ProviderResult TypeResult StatusCorey Justin DOCLINISYNCFinal Result Performing OrganizationAddressCity/State/ZIP CodePhone Number [facility] * (ABNORMAL) [facility] UA (CLEAN/CATCH) GRINDING AND SPRAYING SUPERVISOR/MICRO IF IND. (04/15/2025 2:55 PM EDT) ComponentValueRef RangeTest MethodAnalysis TimePerformed AtPathologist SignatureCOLOR URINELT. YELLOWYELLOWTBHCLARITY URINESL CLOUDYCLEARTBHSPECIFIC GRAVITY URINE1.0151.005 - 1.025TBHPH URINE6.55.0 - 9.0TBHPROTEIN URINETRACE NEG/TRACE mg/dLTBHGLUCOSE URINE UANEGATIVENEGATIVE mg/dLTBHBILIRUBIN URINE NEGATIVENEGATIVETBHKETONES URINENEGATIVENEGATIVE mg/dLTBHBLOOD URINENEGATIVE NEGATIVETBHNITRITE URINEPOSITIVE(A)NEGATIVETBHUROBILINOGEN URINE1.00.2 - 1.0 EU/dLTBHLEUKOCYTE ESTERASE URINESMALL(A)NEGATIVETBHURINE MICROSCOPIC INDICATED YESTBHSpecimen (Source)Anatomical Location / LateralityCollection Method / VolumeCollection TimeReceived Time04/15/2025 2:55 PM EDT04/15/2025 3:05 PM EDT Narrative [facility] - 04/15/2025 3:33 PM EDT Authorizing ProviderResult TypeResult StatusCorey Justin DOCLINISYNCFinal Result Performing OrganizationAddressCity/State/ZIP CodePhone Number [facility] * Pap Smear (02/09/2025 12:00 AM EDT)Specimen (Source)Anatomical Location / LateralityCollection Method / VolumeCollection TimeReceived TimeSwabCervical swab / Unknown Narrative Authorizing ProviderResult TypeResult StatusAmy Ishan CASTANEDA CYTOLOGY ORDERABLES Final ResultPerforming OrganizationAddressCity/State/ZIP CodePhone Number EXTERNAL LAB from Last 3 Months or Most Recently Relevant to Health Maintenance Insurance
--- OUTSIDE RECORDS SUMMARY | 2025-07-07 20:11 | XMS_ITS | Encounter Summary ---
Author Organization [facility] Address [address] [place] [address] Care Team Providers Care Procurement Analyst Name Role Phone Unavailable Primary Care Provider Unavailabl e Encounter Details DateTypeDepartmentCare Team (Latest Contact Info)Vjmahbyzqbv31/22/2025Telephone [facility] [place] [facility] [address] [place] [address] Hina Moura MA Social History Tobacco UseTypesPacks/DayYears UsedDateSmoking Tobacco: Never Assessed Estimated Date of FkkrvamgIxtfyivnFlm74/20/2025Based on UltrasoundSex and Gender InformationValueDate RecordedSex Assigned at WunqiTtlsar03/21/2025 1:58 PM EST Legal UmeLsrldz46/15/2023 6:58 PM EDTGender EvvszgjoMyabmc16/21/2025 1:58 PM EST Sexual DaqavvivfstOuijvdlo55/21/2025 1:58 PM ESTdocumented as of this encounter Miscellaneous Notes * Telephone Encounter - Hina Moura MA - 06/30/2025 8:54 AM EDT Pt notified of results and recommendations. Pharmacy confirmed and medication sent. documented in this encounter Plan of Treatment Not on file documented as of this encounter Visit Diagnoses Diagnosis Urinary tract infection with hematuria, site unspecified documented in this encounter
--- OUTSIDE RECORDS SUMMARY | 2025-07-07 20:11 | XMS_ITS | Encounter Summary ---
Author Organization [facility] Address [address] [place] [address] Care Team Providers Care Funeral Director/Embalmer Name Role Phone Unavailable Primary Care Provider Unavailabl e Encounter Details DateTypeDepartmentCare Team (Latest Contact Info)Drndmyvbocf80/22/2025bstract [facility] [place] [facility] [address] [address] Martell HinaCOLLEGEDALE, [place] Social History Tobacco UseTypesPacks/DayYears UsedDateSmoking Tobacco: Never Assessed Estimated Date of YtdlqukhNznvbvjgOkv81/20/2025Based on UltrasoundSex and Gender InformationValueDate RecordedSex Assigned at VzmjwWyzpvj98/21/2025 1:58 PM EST Legal WxhIabxci35/15/2023 6:58 PM EDTGender HdzuvwdhTjbkok82/21/2025 1:58 PM EST Sexual CmjzgqxxvjhUhvcmoal98/21/2025 1:58 PM ESTdocumented as of this encounter Plan of Treatment Not on file documented as of this encounter Visit Diagnoses Not on filedocumented in this encounter
--- OUTSIDE RECORDS SUMMARY | 2025-07-07 20:11 | XMS_ITS | Encounter Summary ---
Author Organization [facility] Address [address] [place] [address] Care Team Providers Care Ring Stamper Name Role Phone Unavailable Primary Care Provider Unavailabl e Encounter Details DateTypeDepartmentCare Team (Latest Contact Info)Xtdmgyaryah96/20/2025Bamboo flowsheet [facility] [place] [facility] [address] [place] [address] Greg Anderson DO [address] [place] [address] Social History Tobacco UseTypesPacks/DayYears UsedDateSmoking Tobacco: Never Assessed Estimated Date of HzhpfauzNlzwmzztNat71/20/2025Based on UltrasoundSex and Gender InformationValueDate RecordedSex Assigned at RelthNoucwy60/21/2025 1:58 PM EST Legal QpyFopmmu65/15/2023 6:58 PM EDTGender PsfqmeifJtzasq39/21/2025 1:58 PM EST Sexual LsubvfnkprbBttynjhi23/21/2025 1:58 PM ESTdocumented as of this encounter Plan of Treatment Not on file documented as of this encounter Visit Diagnoses Not on filedocumented in this encounter
--- OUTSIDE RECORDS SUMMARY | 2025-07-07 20:11 | XMS_ITS | Encounter Summary ---
Author Organization [facility] Address [address] [place] [address] Care Team Providers Care Iuss Master Analyst Name Role Phone Unavailable Primary Care Provider Unavailabl e Encounter Details DateTypeDepartmentCare Team (Latest Contact Info)Qjhmuwzjuuy07/20/2025External Result Encounter [facility] External Department Unsolicited Greg Anderson, DO [address] [facility] [address] Tej Gomez [place] [id number] Social History Tobacco UseTypesPacks/DayYears UsedDateSmoking Tobacco: Never Assessed Estimated Date of LxmgvxpkIlzbyaexBpw98/20/2025Based on UltrasoundSex and Gender InformationValueDate RecordedSex Assigned at LsrjpIfcbaz18/21/2025 1:58 PM EST Legal OdmWmybgt79/15/2023 6:58 PM EDTGender QuqmephsTkzvbt78/21/2025 1:58 PM EST Sexual VgajwuzvqdxQirqdosc71/21/2025 1:58 PM ESTdocumented as of this encounter Plan of Treatment Not on file documented as of this encounter Procedures Procedure NamePriorityDate/TimeAssociated DiagnosisCommentsURINARY TRACT INFECTION (HTRX)Ovpgvve1806/28/2025 11:26 AM EDT documented in this encounter Results * (ABNORMAL) URINARY TRACT INFECTION (HTRX) (06/28/2025 11:26 AM EDT)Component ValueRef RangeTest MethodAnalysis TimePerformed AtPathologist Signature ACINETOBACTER KVNOIUUT203.961 - 24.689 ppm06/29/2025 7:56 AM EDTHealthTrackRx at LabPortACINETOBACTER BAUMANIINot Zkmupdfi36.961 - 24.689 ppm06/29/2025 7:56 AM EDTHealthTrackRx at LabPortCITROBACTER AUSMMJPM163.000 - 32.015 ppm 06/29/2025 7:56 AM EDTHealthTrackRx at LabPortCITROBACTER FREUNDIINot Detected 23.000 - 32.015 ppm06/29/2025 7:56 AM EDTHealthTrackRx at LabPortENTEROBACTER AEROGENES, ZDKJMSA905.000 - 32.290 ppm06/29/2025 7:56 AM EDTHealthTrackRx at LabPortENTEROBACTER AEROGENES, CLOACAENot Esohuszy59.000 - 32.290 ppm 06/29/2025 7:56 AM EDTHealthTrackRx at LabPortENTEROCOCCUS FAECALIS, FAECIUM0 26.000 - 33.043 ppm06/29/2025 7:56 AM EDTHealthTrackRx at LabPortENTEROCOCCUS FAECALIS, FAECIUMNot Tbuphzjf69.000 - 33.043 ppm06/29/2025 7:56 AM EDT [facility] LabSt[facility] CenterESCHERICHIA COLI20.735(A)23.000 - 28.500 ppm06/29/2025 7:56 AM EDTHealthTrackRx at LabPortESCHERICHIA COLIDetected(A)23.000 - 28.500 ppm06/29/2025 7:56 AM EDTHealthTrackRx at LabPortKLEBSIELLA PNEUMONIAE, MSMAOKP292.000 - 31.865 ppm06/29/2025 7:56 AM EDTHealthTrackRx at LabPort KLEBSIELLA PNEUMONIAE, OXYTOCANot Coftdyfu48.000 - 31.865 ppm06/29/2025 7:56 AM EDTHealthTrackRx at LabPortMORGANELLA DDTWWMDC075.961 - 24.689 ppm 06/29/2025 7:56 AM EDTHealthTrackRx at LabPortMORGANELLA MORGANIINot Detected 19.961 - 24.689 ppm06/29/2025 7:56 AM EDTHealthTrackRx at LabPortPROTEUS MIRABILIS, BVENLHVU612.000 - 28.500 ppm06/29/2025 7:56 AM EDTHealthTrackRx at LabPortPROTEUS MIRABILIS, VULGARISNot Jggnjabu60.000 - 28.500 ppm06/29/2025 7:56 AM EDTHealthTrackRx at LabPortPSEUDOMONAS EMXOZVLMAE792.000 - 31.801 ppm 06/29/2025 7:56 AM EDTHealthTrackRx at LabPortPSEUDOMONAS AERUGINOSANot Bkhltges09.000 - 31.801 ppm06/29/2025 7:56 AM EDTHealthTrackRx at LabPort STAPHYLOCOCCUS MLZOKL714.000 - 31.595 ppm06/29/2025 7:56 AM EDTHealthTrackRx at LabPortSTAPHYLOCOCCUS AUREUSNot Usktynem94.000 - 31.595 ppm06/29/2025 7:56 AM EDTHealthTrackRx at LabPortSTREPTOCOCCUS AGALACTIAE (GROUP B STREP)026.000 - 32.435 ppm06/29/2025 7:56 AM EDTHealthTrackRx at LabPortSTREPTOCOCCUS AGALACTIAE (GROUP B STREP)Not Icescaws80.000 - 32.435 ppm06/29/2025 7:56 AM EDTHealthTrackRx at LabPortCANDIDA ALBICANS, PARAPSILOSIS, FHHQVBKGXC759.000 - 30.347 ppm06/29/2025 7:56 AM EDTHealthTrackRx at LabPortCANDIDA ALBICANS, PARAPSILOSIS, TROPICALISNot Aryotzxd49.000 - 30.347 ppm06/29/2025 7:56 AM EDT [facility] at LabPortCANDIDA FPYNUGEI606.000 - 31.618 ppm06/29/2025 7:56 AM EDTHealthTrackRx at LabPortCANDIDA GLABRATANot Mmvvvevp86.000 - 31.618 ppm 06/29/2025 7:56 AM EDTHealthTrackRx at LabPortCANDIDA BHRFHM215.000 - 30.873 ppm06/29/2025 7:56 AM EDTHealthTrackRx at LabPortCANDIDA KRUSEINot Detected 23.000 - 30.873 ppm10/ 7:56 AM EDTHealthTrackRx at LabSt. Joseph Regional Medical CenterSERRATIA PDAUUXKEFE084.000 - 31.581 ppm06/29/2025 7:56 AM EDTHealthTrackRx at LabPort SERRATIA MARCESCENSNot Huerooaf02.000 - 31.581 ppm06/29/2025 7:56 AM EDT [facility] HospitalSTREPTOCOCCUS PYOGENES (GROUP A STREP)019.961 - 24.689 ppm06/29/2025 7:56 AM EDTHealthTrackRx at LabPortSTREPTOCOCCUS PYOGENES (GROUP A STREP)Not Axwimnjk30.961 - 24.689 ppm06/29/2025 7:56 AM EDTHealthTrackRx at [facility] HospitalSTAPHYLOCOCCUS EPIDERMIDIS, HAEMOLYTICUS, LUGDUNENSIS, SAPROPHYTICUS (SLKTG793.961 - 24.689 ppm06/29/2025 7:56 AM EDTHealthTrackRx at [facility]Port STAPHYLOCOCCUS EPIDERMIDIS, HAEMOLYTICUS, LUGDUNENSIS, SAPROPHYTICUS (URINANot Zsbkknuh54.961 - 24.689 ppm06/29/2025 7:56 AM EDTHealthTrackRx at LabPort STAPHYLOCOCCUS EPIDERMIDIS, HAEMOLYTICUS, LUGDUNENSIS, SAPROPHYTICUS (URINA0 19.961 - 24.689 ppm06/29/2025 7:56 AM EDTHealth[facility]Rx at [facility]Port STAPHYLOCOCCUS EPIDERMIDIS, HAEMOLYTICUS, LUGDUNENSIS, SAPROPHYTICUS (URINANot Madkdakl30.961 - 24.689 ppm06/29/2025 7:56 AM EDTHealthTrackRx at LabPortTET B, TET M26.455(A)23.000 - 27.500 ppm06/29/2025 7:56 AM EDTHealthTrackRx at LabPortTET B, TET MDetected(A)23.000 - 27.500 ppm06/29/2025 7:56 AM EDT [facility] HospitalSpecimen (Source)Anatomical Location / Laterality Collection Method / VolumeCollection TimeReceived PweeKifdl69/ 11:26 AM EDT10/ 1:41 AM EDT Narrative Authorizing ProviderResult TypeResult StatusCorey Justin DOLAB BLOOD ORDERABLES Final ResultPerforming OrganizationAddressCity/State/ZIP CodePhone Number [facility] [address] [address] documented in this encounter Visit Diagnoses Not on filedocumented in this encounter
== END 2025-07-07 20:08 | disposition home or self-care (01) ==
LOC: LAB 20:07
PROVIDERS: PCP Family Medicine; Visit Provider Physician Assistant
DX: Z34.93 Encounter for supervision of normal pregnancy, unspecified, third trimester (principal); Z3A.36 36 weeks gestation of pregnancy
CPT/HCPCS: 87081

== ENCOUNTER 2025-07-09 11:09 | Outpatient (OUT) | payer BC, SELFPAY ==
--- OUTSIDE RECORDS SUMMARY | 2025-06-28 09:40 | XMS_ITS | Encounter Summary ---
Author Organization [facility] Address [address] [facility] [place] [address] Care Team Providers Care Glue Mill Operator Name Role Phone Unavailable Primary Care Provider Unavailabl e Reason for Referral * (Routine) - IncompleteSpecialtyDiagnoses / ProceduresReferred By Contact Referred To ContactRadiology Diagnoses Chronic hypertension Palpitations Procedures Echocardiogram 2D complete Greg Anderson DO [address] [place] [address] Phone: tel: fax: Referral IDStatusReasonStart DateExpiration DateVisits RequestedVisits [id number] Perform Procedure / Reason for Visit * ReasonCommentsRoutine Visit Encounter Details DateTypeDepartmentCare Team (Latest Contact Info)Osuiyungcld53/20/2025 9:40 AM EDTRoutine [facility] [address] [place] [phone] Greg Anderson DO [address] [place] [address] 35 weeks gestation of ([facility]); Third trimester ([facility]); Gestational diabetes mellitus (GDM), antepartum, gestational diabetes method of control unspecified([facility]); Chronic hypertension; H/O miscarriage, currently ([facility]); UTI symptoms; Palpitations; Heartburn during , antepartum ([facility]) Social History Tobacco UseTypesPacks/DayYears UsedDateSmoking Tobacco: Never Assessed Estimated Date of DjrvrzgeWlddasbzLwz83/20/2025Based on UltrasoundSex and Gender InformationValueDate RecordedSex Assigned at ZjoefWgaote76/21/2025 1:58 PM EST Legal TwwOqmukq01/15/2023 6:58 PM EDTGender JkzcjbjdFnwpba18/21/2025 1:58 PM EST Sexual TmpbdhacemdMtkoilsq39/21/2025 1:58 PM ESTdocumented as of this encounter Last Filed Vital Signs Vital SignReadingTime TakenCommentsBlood Xniqwrie109/801 9:58 AM EDT Pulse--Temperature--Respiratory Rate--Oxygen Saturation--Inhaled Oxygen Concentration--Ouzndu486 kg (269 lb)06/28/2025 9:58 AM EDTHeight--Body Mass [...] nursing note reviewed. Exam conducted with a primary teaching assistant present. Vitals: There is no height or weight on file to calculate BMI. BP: 120/80 No LMP recorded. Patient is . Assessment/Plan ICD-10-CM 1. 35 weeks gestation of ([facility]) Z3A.35 POCT urinalysis dipstick manually resulted US biophysical profile w non stress test 2. Third trimester ([facility]) Z34.93 POCT urinalysis dipstick manually resulted US biophysical profile w non stress test 3. Gestational diabetes mellitus (GDM), antepartum, gestational diabetes method of control unspecified ([facility]) O24.419 POCT urinalysis dipstick manually resulted US biophysical profile w non stress test 4. Chronic hypertension I10 US biophysical profile w non stress test 5. H/O miscarriage, currently ([facility]) O09.299 US biophysical profile w non stress test 6. UTI symptoms R39.9 Urine culture Patient presents today for a routine obstetrics appointment. Patient is currently 35w4d with a Estimated Date of Delivery: 07/29/25. Patient to have GBS at next appointment. Patient is to schedule NST/BPP's at [facility] to get started. Patient voiced that vomiting has increased. Patient to also setup ECHO and EKG at [facility]. Patient to return to clinic in 1 week to sign IOL consents and have GBS obtained. Documented by Sanaz Mcconnell LPN on behalf of: Greg Anderson DO documented in this encounter Plan of Treatment NameTypePriorityAssociated DiagnosesOrder ScheduleUS biophysical profile w non stress testImagingRoutine 35 weeks gestation of ([facility]) Third trimester ([facility]) Gestational diabetes mellitus (GDM), antepartum, gestational diabetes method of control unspecified([facility]) Chronic hypertension H/O miscarriage, currently ([facility]) Expected: 06/28/2025 (Approximate), Expires: 12/27/2025Urine cultureMicrobiology Routine UTI symptoms Ordered: 06/28/2025ECG 12 lead unit performedECGRoutine Chronic hypertension Palpitations Expected: 06/28/2025 (Approximate), Expires: 06/28/2026Echocardiogram 2D completeEchocardiographyRoutine Chronic hypertension Palpitations Expected: 06/28/2025 (Approximate), Expires: 06/28/2027documented as of this encounter Procedures Procedure NamePriorityDate/TimeAssociated DiagnosisCommentsPOCT URINALYSIS XYTQHRQXLrgrcwp37/20/2025 10:04 AM EDT 35 weeks gestation of ([facility]) Third trimester ([facility]) Gestational diabetes mellitus (GDM), antepartum, gestational diabetes method of control unspecified([facility]) documented in this encounter Results * (ABNORMAL) [...] Location / LateralityCollection Method / VolumeCollection TimeReceived TxobCvxxi67/20/2025 10:04 AM EDT Narrative Authorizing ProviderResult TypeResult StatusCorey Justin [facility]ITALOINT [facility] CARE TEST ENTER/EDIT ORDERABLESFinal Result documented in this encounter Visit Diagnoses Diagnosis 35 weeks gestation of ([facility]) Third trimester ([facility]) state, incidental Gestational diabetes mellitus (GDM), antepartum, gestational diabetes method of control unspecified([facility]) Chronic hypertension H/O miscarriage, currently ([facility]) UTI symptoms Palpitations Heartburn during , antepartum ([facility]) documented in this encounter
--- OUTSIDE RECORDS SUMMARY | 2025-07-07 15:20 | XMS_ITS | Encounter Summary ---
Author Organization [facility] Address [address] [place] [address] Care Team Providers Care Optical Laboratory Mechanic Name Role Phone Unavailable Primary Care Provider Unavailabl e Reason for Visit * ReasonCommentsRoutine Visit Encounter Details DateTypeDepartmentCare Team (Latest Contact Info)Aoehlhanknt09/29/2025 3:20 PM EDTRoutine [facility] [address] [facility] [facility] [phone] Krupa Hernandez PA [address] [facility] [address] [place], [facility]11 36 weeks gestation of ([facility]); Third trimester ([facility]) Social History Tobacco UseTypesPacks/DayYears UsedDateSmoking Tobacco: Never Assessed Estimated Date of FcbqbcmiCtopsicmPvw50/20/2025ased on UltrasoundSex and Gender InformationValueDate RecordedSex Assigned at QmcvsZwvpxq83/21/2025 1:58 PM EST Legal NtkEnokhi28/15/2023 6:58 PM EDTGender UvxnmigvIcjoee06/21/2025 1:58 PM EST Sexual VwikxrylvvdEwxsflej22/21/2025 1:58 PM ESTdocumented as of this encounter Last Filed Vital Signs Vital SignReadingTime TakenCommentsBlood Tfegdmsd786/9007/07/2025 3:36 PM EDT Pulse--Temperature--Respiratory Rate--Oxygen Saturation--Inhaled Oxygen Concentration--Mngwpi182 kg (275 lb 4 oz)07/07/2025 3:36 PM [...] Assessment/Plan ICD-10-CM 1. 36 weeks gestation of ([facility]) Z3A.36 POCT urinalysis dipstick manually resulted 2. Third trimester ([facility]) Z34.93 CULTURE, GROUP B STREP WITH [...] GROUP B STREP WITH SUSCEPTIBLITYLabRoutine Third trimester ([facility]) Expected: 07/07/2025, Expires: 07/07/2026documented as of this encounter Procedures Procedure NamePriorityDate/TimeAssociated DiagnosisCommentsPOCT URINALYSIS SOQXBOWIBekndsi84/29/2025 3:48 PM EDT 36 weeks gestation of ([facility]) documented in this encounter Results [...] / LateralityCollection Method / Volume Collection TimeReceived CjaeEexnz03/29/2025 3:48 PM EDT Narrative Authorizing ProviderResult TypeResult StatusT[facility] TEST ENTER/EDIT ORDERABLESFinal Result documented in this encounter Visit Diagnoses Diagnosis 36 weeks gestation of ([facility]) Third trimester ([facility]) state, incidental documented in this encounter
--- OUTSIDE RECORDS SUMMARY | 2025-07-09 11:11 | XMS_ITS | Encounter Summary ---
Author Organization [facility] Address [address] [facility] [place] [address] Care Team Providers Care Dry Talc Racker Name Role Phone Unavailable Primary Care Provider Unavailabl e Encounter Details DateTypeDepartmentCare Team (Latest Contact Info)Hjykofpahzm59/28/2025linisync Result Encounter [facility] External Department Unsolicited Candice Anderson, DO [address] [facility] [address] [place], [place] [phone] Social History Tobacco UseTypesPacks/DayYears UsedDateSmoking Tobacco: Never Assessed Estimated Date of PfmovrdoHtaqftfiPke88/20/2025Based on UltrasoundSex and Gender InformationValueDate RecordedSex Assigned at BylbpLbeipt88/21/2025 1:58 PM EST Legal JrvHoujig92/15/2023 6:58 PM EDTGender SwxjswjfTsiusq02/21/2025 1:58 PM EST Sexual KejirrqqnrxDhodweze52/21/2025 1:58 PM ESTdocumented as of this encounter Plan of Treatment Not on file documented as of this encounter Procedures Procedure NamePriorityDate/TimeAssociated DiagnosisCommentsUS OB BPP W NON-QRXNJS2307/06/2025 9:55 AM EDT documented in this encounter Results * US OB BPP W NON-STRESS (07/06/2025 9:55 AM EDT)Anatomical Region LateralityModalityOtherSpecimen (Source)Anatomical Location / Laterality Collection Method / VolumeCollection TimeReceived Time07/06/2025 9:55 AM EDT Narrative 07/06/2025 9:57 AM EDT [facility] ?[address] ? [place] [address] ? Ultrasound Report ? Signed ? Patient: PALLAVI WEN S ?MR#: [id number] ?? : 1985 ?Acct:[id number] ?? Age/Sex: 40 / F ?ADM Date: 07/06/ ?? Loc: [facility] ??250-1 ? Attending Dr: Candice Anderson D.O. ? Ordering Physician: Candice Anderson D.O. ?? Date of Service: 07/06/25 ?? Procedure(s): US OB BPP w non-stress ?? Accession Number(s): [id number] ? cc: Candice Anderson D.O.; Lynn Jose D.O. ? [facility] ? [address] [facility] ? [place] [address] ? Patient Name: ?? PALLAVI Kit RUBINA ? [facility]:[id number] ? date: 1985 ?Sex: F ?? Assigned Patient Location: [facility] ?? Current Patient Location: [facility] ?? Accession/Order Number: [id number] ?? Exam Date: 07/06/2025 ??09:32 ?Report Date: [...] Dictation Location: RADIO-PC-02 ? Electronically authenticated by: [id number] ??Y ?? Date: 07/06/2025 ??09:55 ? Dictated By: ?Joan Womack M.D. ? Signed By: ?07/06/ 0957 ? DD/DT: 07/06/ 0955 ? TD/TT: ? Parachute Mender: Procedure Note Radiology, Radiologist, - 07/06/2025 [place] [address] Ultrasound Report Signed Patient: PALLAVI WEN SMR#: [id number] : 1985Acct:[id number] Age/Sex: 40 / FADM Date: 07/06/25 Loc: [facility] 250-[address]: Candice Anderson D.O. Ordering Physician: Candice Anderson D.O. Date of Service: 07/06/25 Procedure(s): US OB BPP w non-stress Accession Number(s): [id number] cc: Candice Anderson D.O.; Lynn Jose D.O. The [place] [address] Patient Name: PALLAVI WEN MRN: [id number] date: 1985 Sex: F Assigned Patient Location: [facility] Current Patient Location: [facility] Accession/Order Number: [id number] Exam Date: 07/06/2025 09:32 Report Date: 07/06/2025 09:55 At the request of: CADNICE ANDERSON DO Procedure: US OB BPP w [...] Womack M.D. 07/06/2025 9:55 AM Dictation Location: [place] [address] Electronically authenticated by: [id number] Y Date: 9:55 Dictated By: Joan Womack M.D. Signed By:07/06/25956 DD/ 4 TD/TT: Parachute Mender: Authorizing ProviderResult TypeResult StatusCorey Justin DOCLINISYNC IMAGINGFinal Result documented in this encounter Visit Diagnoses Not on filedocumented in this encounter
--- OUTSIDE RECORDS SUMMARY | 2025-07-09 11:11 | XMS_ITS | Clinical Summary ---
Author Organization [employer] Address [id number] [address] [place] [address] Care Team Providers Care Block Saw Operator Name Role Phone Unavailable Primary Care Provider Unavailabl e Allergies Active AllergyReactionsCriticalityNoted DateCommentsSulfa (Sulfonamide Antibiotics)Sijusijn68/19/2025 Medications MedicationSigDispense QuantityRefillsLast FilledStart DateEnd DateStatus omeprazole [...] Multigravida of advanced maternal age in second hrvworeua07/03/2025Estimated Date of DeliveryCommentsYes 07/29/2025ased on Ultrasound Encounters DateTypeDepartmentCare BsrfHxenemexsyr01/11/5832Nkymcb65/14/2025Travelfrom Last 3 Months Family History Medical HistoryRelationNameCommentsHypertensionFatherKidney uqxmkruKcyzwnM5AB VveigrL7RIIaycdgss GrandfatherBreast cancerMaternal GrandmotherRelationName StatusCommentsFatherDeceasedMaternal GrandfatherMaternal Grandmother Social [...] money to get more.Never True03/11/2025Estimated Date of KykhfiviFxonhxtzNnu75/20/2025ased on UltrasoundSex and Gender InformationValue Date RecordedSex Assigned at BirthNot on fileLegal DupKebfkx73/15/2025 11:20 AM EDTGender IdentityNot on fileSexual OrientationNot on file Last Filed Vital Signs Vital SignReadingTime TakenCommentsBlood Hrnlzhva839/8303/11/2025 9:25 AM EDT Obxdp195103/11/2025 9:25 AM EDTTemperature--Respiratory Rate--Oxygen Saturation-- Inhaled Oxygen Concentration--Lgchek275.2 kg (269 lb 6.4 oz)03/11/2025 9:25 AM ZKJMzfnuk145.6 cm (5' 4 )03/11/2025 9:25 AM EDTBody Mass Index46.24003/11/2025 9:25 AM EDT Plan of Treatment Health MaintenanceDue DateLast DoneCommentsDepression Kevinqqld54/23/1999Adult BMI Follow Up Plan2005DTaP,Tdap and Td Vaccines (1 - Tdap)2006COVID- 19 Vaccine (2 - season)504/10/2020Influenza Qaympcj4905/10/2025 06/15/2022, 05/23/2021dult BMI Jjantwocf57/11/2024Tobacco Screening Pap Smear/11/2024 Medical Devices Not on file Procedures Procedure NamePriorityDate/TimeAssociated DiagnosisCommentsUS MFM OB FOLLOW-UP, 1 HBIGUFtokumj97/11/2025 3:06 PM EDT Choroid plexus cyst of fetus in miranda Multigravida of advanced maternal age in second trimester Diet controlled gestational diabetes mellitus (GDM) in second trimester Hx of essential hypertension US MFM OB FOLLOW-UP, 1 ZGGBMBoyjbwu92/14/2025 3:22 PM EDT Choroid plexus cyst of [...] ESTRADA : 1985 SEX: F Accession Number: [id number] ORDERING PHYSICIAN: CANDICE OCHOA REFERRING PHYSICIAN: CANDICE OCHOA Coding Procedures ? 76060: Follow-up Ultrasound, per fetus Indication , Screening for follow-up survey, AMA- Supervision of elderly, Chronic hypertension affecting , Obesity in , History OB History ? 2. Para 0 ? A5A9G1P5 Maternal Assessment Physical Exam ??Height 163 cm, [...] (oz) ? 8 oz EFW by: ?Hadlock (EKS-TF-YB-FL) Extended Tibia ??49.6 mm 29w 5d 43% [employer] ? 4.4 mm CM ? 7.0 mm [...] Heart/Thorax: 4-chamber view. RVOT view. LVOT view. 5-jsxvyq-appnjsv view. Situs. Ductal arch view.Interventricular ? septum. [...] MVP measures 6.2 cm. Recommendations Please see [facility] recommendations from prior clinical and/or ultrasound report documentation. Subsequent follow up or other follow up as clinically determined by primary OB provider unless otherwise specified by [facility]. Results forwarded to ordering provider so they can follow up with the patient as necessary. Procedure Note Sam Sultana MD - 05/20/2025 NAME: RUBINA ESTRADA : 1985 SEX: F Accession Number: [id number] ORDERING PHYSICIAN: CANDICE OCHOA REFERRING PHYSICIAN: CANDICE OCHOA Coding Procedures 10129: Follow-up Ultrasound, per fetus Indication , Screening for follow-up survey, AMA- Supervision of elderly, Chronic hypertension affecting , Obesity in , History OB History 2. Para 0 P6P0X9H3 Maternal Assessment Physical Exam Height 163 cm, [...] EFW (oz) 8 oz EFW by: Hadlock (RMY-XL-OL-FL) Extended Tibia 49.6 mm 29w 5d 43% [employer] 4.4 mm CM 7.0 mm 51% Nicolaides [...] Heart/Thorax: 4-chamber view. RVOT view. LVOT view. 6-gpojva-zpkucix view.Situs. Ductal arch view. Interventricular septum. Great [...] MVP measures 6.2 cm. Recommendations Please see [facility] recommendations from prior clinical and/or ultrasoundreport documentation. Subsequent follow up or other follow up as clinically determined byprimary OB provider unless otherwise specified by MFM. Results forwarded to ordering provider so they can follow up with thepatient as necessary. Authorizing ProviderResult TypeResult StatusCorey R Justin DOIMG US ORDERABLES Final Result from Last 3 Months Insurance
--- OUTSIDE RECORDS SUMMARY | 2025-07-09 11:11 | XMS_ITS | Encounter Summary ---
Author Organization [facility] Address [address] [facility] [place] [address] Care Team Providers Care Accordion Maker Name Role Phone Unavailable Primary Care Provider Unavailabl e Encounter Details DateTypeDepartmentCare Team (Latest Contact Info)Qgsfxinbmnh10/20/2025External Result Encounter [facility] External Department Unsolicited Greg Anderson, DO [address] Te[address] [place] [phone] Social History Tobacco UseTypesPacks/DayYears UsedDateSmoking Tobacco: Never Assessed Estimated Date of GdlegikbCktddqfgDfv37/20/2025Based on UltrasoundSex and Gender InformationValueDate RecordedSex Assigned at PmalrHxxkrm18/21/2025 1:58 PM EST Legal DncMqopvb51/15/2023 6:58 PM EDTGender IpgfxvjoIygxhf89/21/2025 1:58 PM EST Sexual IcnsoxsubdbUbbdhzti10/21/2025 1:58 PM ESTdocumented as of this encounter Plan of Treatment Not on file documented as of this encounter Procedures Procedure NamePriorityDate/TimeAssociated DiagnosisCommentsURINARY TRACT INFECTION (HTRX)Afbmfos1006/28/2025 11:26 AM EDT documented in this encounter Results * (ABNORMAL) URINARY TRACT INFECTION (HTRX) (06/28/2025 11:26 AM EDT)Component ValueRef RangeTest MethodAnalysis TimePerformed AtPathologist Signature ACINETOBACTER CIYGDSGI663.961 - 24.689 ppm06/29/2025 7:56 AM EDTHealthTrackRx at LabPortACINETOBACTER BAUMANIINot Qfoftrmg90.961 - 24.689 ppm06/29/2025 7:56 AM EDTHealthTrackRx at LabPortCITROBACTER URTPIDXG703.000 - 32.015 ppm 06/29/2025 7:56 AM EDTHealthTrackRx at LabPortCITROBACTER FREUNDIINot Detected 23.000 - 32.015 ppm06/29/2025 7:56 AM EDTHealthTrackRx at LabPortENTEROBACTER AEROGENES, HUWHPQD568.000 - 32.290 ppm06/29/2025 7:56 AM EDTHealthTrackRx at LabPortENTEROBACTER AEROGENES, CLOACAENot Aseivwia04.000 - 32.290 ppm 06/29/2025 7:56 AM EDTHealthTrackRx at LabPortENTEROCOCCUS FAECALIS, FAECIUM0 26.000 - 33.043 ppm06/29/2025 7:56 AM EDTHealthTrackRx at LabPortENTEROCOCCUS FAECALIS, FAECIUMNot Aywkdube71.000 - 33.043 ppm06/29/2025 7:56 AM EDT [facility] COLI20.735(A)23.000 - 28.500 ppm06/29/2025 7:56 AM EDTHealthTrackRx at LabPortESCHERICHIA COLIDetected(A)23.000 - 28.500 ppm06/29/2025 7:56 AM EDTHealthTrackRx at LabPortKLEBSIELLA PNEUMONIAE, QTCPIUM433.000 - 31.865 ppm06/29/2025 7:56 AM EDT[facility] at [facility] KLEBSIELLA PNEUMONIAE, OXYTOCANot Suyoypvp41.000 - 31.865 ppm06/29/2025 7:56 AM EDTHealthTrackRx at LabPortMORGANELLA WHUYRIDR301.961 - 24.689 ppm 06/29/2025 7:56 AM EDTHealthTrackRx at LabPortMORGANELLA MORGANIINot Detected 19.961 - 24.689 ppm06/29/2025 7:56 AM EDTHealthTrackRx at LabPortPROTEUS MIRABILIS, JLSRPNZS799.000 - 28.500 ppm06/29/2025 7:56 AM EDTHealthTrackRx at LabPortPROTEUS MIRABILIS, VULGARISNot Qdjmnhnc41.000 - 28.500 ppm06/29/2025 7:56 AM EDTHealthTrackRx at LabPortPSEUDOMONAS OFCGNJMTWG933.000 - 31.801 ppm 06/29/2025 7:56 AM EDTHealthTrackRx at LabPortPSEUDOMONAS AERUGINOSANot Opwldkkt63.000 - 31.801 ppm06/29/2025 7:56 AM EDT[facility] at [facility] STAPHYLOCOCCUS NYFJHH388.000 - 31.595 ppm06/29/2025 7:56 AM EDTHealthTrackRx at LabPortSTAPHYLOCOCCUS AUREUSNot Vfklhlkt72.000 - 31.595 ppm06/29/2025 7:56 AM EDTHealthTrackRx at LabPortSTREPTOCOCCUS AGALACTIAE (GROUP B STREP)026.000 - 32.435 ppm06/29/2025 7:56 AM EDTHealthTrackRx at LabPortSTREPTOCOCCUS AGALACTIAE (GROUP B STREP)Not Vohzbgqc27.000 - 32.435 ppm06/29/2025 7:56 AM EDTHealthTrackRx at LabPortCANDIDA ALBICANS, PARAPSILOSIS, TKWQHNZBHM124.000 - 30.347 ppm06/29/2025 7:56 AM EDTHealthTrackRx at LabPortCANDIDA ALBICANS, PARAPSILOSIS, TROPICALISNot Agmjhcpd91.000 - 30.347 ppm06/29/2025 7:56 AM EDT [facility] at LabPortCANDIDA JFUQNIST624.000 - 31.618 ppm06/29/2025 7:56 AM EDTHealthTrackRx at LabPortCANDIDA GLABRATANot Xsqbaikb70.000 - 31.618 ppm 06/29/2025 7:56 AM EDTHealthTrackRx at LabPortCANDIDA CHMRKX710.000 - 30.873 ppm06/29/2025 7:56 AM EDTHealthTrackRx at LabPortCANDIDA KRUSEINot Detected 23.000 - 30.873 ppm10/ 7:56 AM EDTHealthTrackRx [address] [facility] [place], IndianaSERR[place] WLFNYRWMJL277.000 - 31.581 ppm06/29/2025 7:56 AM EDTHealthTrackRx at LabPort SERRATIA MARCESCENSNot Jclkygql67.000 - 31.581 ppm06/29/2025 7:56 AM EDT [facility] HealthSTREPTOCOCCUS PYOGENES (GROUP A STREP)019.961 - 24.689 ppm06/29/2025 7:56 AM EDTHealthTrackRx at LabPortSTREPTOCOCCUS PYOGENES (GROUP A STREP)Not Ulfttwze45.961 - 24.689 ppm06/29/2025 7:56 AM EDTHealthTrackRx at [facility] HealthSTAPHYLOCOCCUS EPIDERMIDIS, HAEMOLYTICUS, LUGDUNENSIS, SAPROPHYTICUS (OZCSS450.961 - 24.689 ppm06/29/2025 7:56 AM EDTHealth[facility] at [facility] STAPHYLOCOCCUS EPIDERMIDIS, HAEMOLYTICUS, LUGDUNENSIS, SAPROPHYTICUS (URINANot Cmnnaxsu68.961 - 24.689 ppm06/29/2025 7:56 AM EDTHealth[facility] at [facility] STAPHYLOCOCCUS EPIDERMIDIS, HAEMOLYTICUS, LUGDUNENSIS, SAPROPHYTICUS (URINA0 19.961 - 24.689 ppm06/29/2025 7:56 AM EDT[facility] at [facility] STAPHYLOCOCCUS EPIDERMIDIS, HAEMOLYTICUS, LUGDUNENSIS, SAPROPHYTICUS (URINANot Xskickby27.961 - 24.689 ppm06/29/2025 7:56 AM EDTHealthTrackRx at LabPortTET B, TET M26.455(A)23.000 - 27.500 ppm06/29/2025 7:56 AM EDTHealthTrackRx at LabPortTET B, TET MDetected(A)23.000 - 27.500 ppm06/29/2025 7:56 AM EDT [facility] HealthSpecimen (Source)Anatomical Location / Laterality Collection Method / VolumeCollection TimeReceived LufcOewrm72/ 11:26 AM EDT10/ 1:41 AM EDT Narrative Authorizing ProviderResult TypeResult StatusCorey Justin DOLAB BLOOD ORDERABLES Final ResultPerforming OrganizationAddressCity/State/ZIP CodePhone Number [facility] [address] [address] documented in this encounter Visit Diagnoses Not on filedocumented in this encounter
--- OUTSIDE RECORDS SUMMARY | 2025-07-09 11:11 | XMS_ITS | Clinical Summary ---
Author Organization [facility] Healthcare Address [address] [place] [address] Care Team Providers Care Front Office Representative Name Role Phone Unavailable Primary Care Provider Unavailabl e Allergies Active AllergyReactionsCriticalityNoted DateCommentsSulfa AntibioticsSwelling High03/30/2016 Other Reaction(s): Swelling of throat Sulfamethoxazole-GmuowehgjnejYqalrwl88/11/2024 Medications MedicationSigDispense QuantityRefillsLast FilledStart DateEnd DateStatus venlafaxine XR (Effexor XR) 150 MG 24 hr capsule Take 150 mg by mouth Daily04/14/2024ctive omeprazole (PriLOSEC) [address] capsule PLEASE SEE ATTACHED FOR DETAILED OIKGNRQLAH98/02/2025Active labetalol (Normodyne) 200 MG tablet Indications:Elevated blood pressure readingTake 1 tablet (200 mg) by mouth in the morning and 1 tablet (200 mg) in the evening and 1 tablet (200 mg) before bedtime. 90 tablet 1104/067396/6Active MV-Min-Fe Fum-FA-DHA ( 1 PO) Take by [...] crush, chew, or split. 30 tablet 1116Active cephalexin (Keflex) 500 MG capsule Take 500 mg by mouth in the morning and 500 mg at noon and 500 mg in the evening and 500 mg before bedtime.Discontinued HYDROmorphone (Dilaudid) 2 MG tablet Take 2 mg by mouth every 6 (six) hours if pflvfq76Discontinued phenazopyridine (Pyridium) 100 MG tablet Indications:Urinary tract infection without hematuria, site unspecifiedTake 1 tablet (100 mg) by mouth 3 (three) times a day as needed for bladder spasms for up to 9 doses 9 tablet Discontinued nitrofurantoin, macrocrystal-monohydrate, (Macrobid) 100 MG capsule Indications:Urinary tract infection with hematuria, site unspecifiedTake 1 capsule (100 mg) by mouth in the morning and 1 capsule (100 mg) before bedtime. Do all this for 7 days. 14 capsule Expired Active Problems Estimated Date of GetauoiqXjzahpaoRxo76/20/2025Based on Ultrasound No known active problems Encounters DateTypeDepartmentCare TqiwJizivnjvlgm21/29/2025 3:20 PM EDTRoutine [facility] [address] [place] [address] Krupa Olmstead PA 36 weeks gestation of ([facility]); Third trimester ([facility])07/07/2025amboo flowsheet [facility] [address] [address] Krupa Olmstead PA 07/06/2025linisync Result Encounter [facility] External Department Unsolicited Candice Anderson, DO 06/30/2025bstract [facility] [address] [address] Hina MouraCAMBRIDGE, [place] 06/30/2025Telephone [facility] [address] [address] Hina MouraCAMBRIDGE, [place] 06/28/2025 9:40 AM EDTRoutine [facility] [address] [place] [address] Candice Anderson, DO 35 weeks gestation of ([facility]); Third trimester ([facility]); Gestational diabetes mellitus (GDM), antepartum, gestational diabetes method of control unspecified([facility]); Chronic hypertension; H/O miscarriage, currently ([facility]); UTI symptoms; Palpitations; Heartburn during , antepartum ([facility])06/28/2025External Result Encounter [facility] External Department Unsolicited Candice Anderson, DO 06/28/2025amboo flowsheet [facility] [address] [place] [address] Candice Anderson, DO 06/17/2025bstract [facility] [address] [address] Candice Anderson, DO 06/14/2025 11:50 AM EDTRoutine [facility] [address] [address] Suzanne Valdivia NP 33 weeks gestation of ([facility]); Third trimester ([facility]); Gestational diabetes mellitus (GDM), antepartum, gestational diabetes method of control unspecified([facility])06/14/2025linisync Result Encounter [facility] External Department Unsolicited Krupa Olmstead PA 06/14/2025amboo flowsheet [facility] [address] [place] [address] Suzanne Valdivia NP 05/27/2025 8:50 AM EDTRoutine [facility] [address] [address] Krupa Olmstead PA Size of fetus inconsistent with dates, antepartum ([facility]) (Primary Dx); Third trimester ([facility]); 31 weeks gestation of ([facility])05/27/2025amboo flowsheet [facility] [address] [place] [address] Krupa Olmstead PA 05/20/2025bstract [facility] [address] [place] [address] [place] [address] Candice Anderson, 05/13/2025 8:30 AM EDTRoutine [facility] [address] [address] Candice Anderson, 29 weeks gestation of ([facility]); Third trimester ([facility]); Gestational diabetes mellitus (GDM), antepartum, gestational diabetes method of control unspecified([facility]); Urinary tract infection without hematuria, site awftowbudgh44/04/2025amboo flowsheet [facility] [address] [place] [address] Candice Anderson, 05/11/2025External Result Encounter [facility] External [...] Department Unsolicited Shaun Rebollar MD 05/04/2025bstract [facility] [address] [place] [address] Candice Anderson, DO 05/04/2025Telephone [facility] [address] [address] Candice Anderson, DO 04/28/2025 1:00 PM EDTRoutine [facility] [address] [address] Krupa Olmstead PA 26 weeks gestation of ([facility]); Second trimester ([facility]); Urinary tract infection with hematuria, site unspecified; Yeast dlpeqlrso50/20/2025amboo flowsheet [facility] [address] [place] [address] Krupa Olmstead PA 04/23/2025bstract [facility] [address] [address] Candice Anderson, DO 04/21/20255460Tlgwrd56/07/2025linisync Result Encounter [facility]OMS External Department Unsolicited Candice Anderson, DO 04/15/2025linisync Result Encounter NOMS External Department Unsolicited Candice Anderson, DO 04/15/2025linisync Result Encounter NOMS External Department Unsolicited Candice Anderson, DO 04/15/2025Telephone [facility] MESSINA [address] [place] [address] [place] [address] Hina Moura MA from Last 3 Months Social History Tobacco UseTypesPacks/DayYears UsedDateSmoking Tobacco: Never Assessed Estimated Date of MgrbepbsVdzmumltUjj50/20/2025Based on UltrasoundSex and Gender InformationValueDate RecordedSex Assigned at YzpykPgnnqo63/21/2025 1:58 PM EST Legal AoxXnfnhm78/15/2023 6:58 PM EDTGender BbwwnjxqForvzl32/21/2025 1:58 PM EST Sexual DxuhyjkuszkKncilhuk62/21/2025 1:58 PM EST Last Filed Vital Signs Vital SignReadingTime TakenCommentsBlood Fkhoidpx081/9007/07/2025 3:36 PM EDT Pulse--Temperature--Respiratory Rate--Oxygen Saturation--Inhaled Oxygen Concentration--Bgfxfa167 kg (275 lb 4 oz)07/07/2025 3:36 PM EDTHeight--Body Mass Index-- Plan of Treatment Health MaintenanceDue DateLast DoneCommentsMMR Vaccines (1 of 1 - Standard series)1988DTaP/Tdap/Td Vaccines (1 - Tdap)1994Varicella Vaccines (1 of 2 - 13+ 2-dose series)2000Hepatitis B Vaccines (1 of 3 - 19+ 3-dose series)2006HPV Vaccines (1 - 3-dose SCDM series)2014HPV/Cotest 2017COVID-19 Vaccine (2 - season)/10/2020Influenza Vaccine (#1)/03/2022, 05/23/2021ervical Cancer Rfggxqlcv42/03/2028 Pap SmearHIB VaccinesAged OutNo longer eligible based [...] this topic Procedures Procedure NamePriorityDate/TimeAssociated DiagnosisCommentsPOCT URINALYSIS XLVNUAOQVvgfobw46/29/2025 3:48 PM EDT 36 weeks gestation of ([facility]) US OB BPP W NON-XASZDV6407/06/2025 9:55 AM EDT URINARY TRACT INFECTION (HTRX)Uasioaj8506/28/2025 11:26 AM EDT POCT URINALYSIS CEMUCVDCHnyfkzc91/20/2025 10:04 AM EDT 35 weeks gestation of ([facility]) Third trimester ([facility]) Gestational diabetes mellitus (GDM), antepartum, gestational diabetes method of control unspecified([facility]) US OB GXZPMR7906/14/2025 12:01 PM EDT POCT URINALYSIS GTWHWMXOKxsokeo14/06/2025 11:49 AM EDT 33 weeks gestation of ([facility]) Third trimester ([facility]) POCT URINALYSIS WFFGGFCJDarljzb70/18/2025 8:58 AM EDT Third trimester ([facility]) POCT URINALYSIS XEVOAQXBQnezbpo54/04/2025 8:42 AM EDT 29 weeks gestation of ([facility]) Third trimester ([facility]) US RENAL JMBRTHXR15/02/2025 12:52 PM EDT EGCMSQDYQE27/01/2025 11:10 PM EDT JLXJOUBSDCD53/01/2025 11:10 PM EDT COMPREHENSIVE METABOLIC HQKKOTQJI28/01/2025 11:10 PM EDT CBC WITH AUTO VKWQQUCDMOIITHRG79/01/2025 11:10 PM EDT VYGRCYGCCBJSFDZ49/01/2025 11:05 PM EDT AEROBIC DAVE CHARGE (NMIC56)STAT05/10/2025 10:30 PM EDT URINALYSIS PCGQOXDQET21/01/2025 10:30 PM EDT CULTURE, URINE, OYTMBDTSFEN58/01/2025 10:30 PM EDT URINARY TRACT INFECTION (HTRX)Uzhhdls2504/28/2025 1:20 PM EDT POCT URINALYSIS YSWVDSYQVbhsdfz68/20/2025 1:15 PM EDT 26 weeks gestation of ([facility]) Second trimester ([facility]) US OB BBYPNBYR47/07/2025 4:27 PM EDT US OB CERVICAL OAQJXN1004/15/2025 4:27 PM EDT [facility] URINE MICROSCOPIC WRJSAqljpdx50/07/2025 2:55 PM EDT [facility] UA (CLEAN/CATCH) CONTINUOUS MINING MACHINE LODE MINER/MICRO IF IND.Ouianzq1304/15/2025 2:55 PM EDT PAP MQINRRaphfnv24/03/2025 12:00 AM EDTfrom Last 3 Months or [...] Location / LateralityCollection Method / VolumeCollection TimeReceived TimeAcutecare Health System 07/07/2025 3:48 PM EDT Narrative Authorizing ProviderResult TypeResult StatusInova [facility] Hospital TEST ENTER/EDIT ORDERABLESFinal Result * US OB BPP W NON-STRESS (07/06/2025 9:55 AM EDT)Anatomical Region LateralityModalityOtherSpecimen (Source)Anatomical Location / Laterality Collection Method / VolumeCollection TimeReceived Time07/06/2025 9:55 AM EDT Narrative 07/06/2025 9:57 AM EDT [facility] ?[address] ? [place] [address] ? Ultrasound Report ? Signed ? Patient: NATALIE CESPEDES ?MR#: [id number] ?? : 1985 ?Acct:[id number] ?? Age/Sex: 40 / F ?ADM Date: 07/06/25 ?? Loc: [facility] ??250-1 ? Attending Dr: Candice Anderson D.O. ? Ordering Physician: Candice Anderson D.O. ?? Date of Service: 07/06/25 ?? Procedure(s): US OB BPP w non-stress ?? Accession Number(s): [id number] ? cc: Candice Anderson D.O.; Lynn Jose D.O. ? [facility] ? [address] ? [place] [address] ? Patient Name: ?? NATALIE CESPEDES ? MRN: [facility]:[id number] ? date: 1985 ?Sex: F ?? Assigned Patient Location: [facility] ?? Current Patient Location: [facility] ?? Accession/Order Number: [id number] ?? Exam Date: 07/06/2025 ??09:32 ?Report Date: [...] Dictation Location: RADIO-PC-02 ? Electronically authenticated by: [id number] ??Y ?? Date: 07/06/2025 ??09:55 ? Dictated By: ?Joan Womack M.D. ? Signed By: ?07/06/25 0957 ? DD/ 0955 ? TD/TT: ? Piggery Worker: Procedure Note Radiology, Radiologist, MD - 07/06/2025 [place] [address] Ultrasound Report Signed Patient: NATALIE CESPEDES [facility]#: [id number] : 1985Acct:[id number] Age/Sex: 40 / FADM Date: 07/06/25 Loc: [facility] 250-[address]: Candice Anderson D.O. Ordering Physician: Candice Anderson D.O. Date of Service: 07/06/25 Procedure(s): US OB BPP w non-stress Accession Number(s): [id number] cc: Candice Anderson D.O.; Lynn Jose D.O. [place] [id number] Patient Name: NATALIE CESPEDES MRN: [id number] date: 1985 Sex: F Assigned Patient Location: [facility] Current Patient Location: [facility] Accession/Order Number: [id number] Exam Date: 07/06/2025 09:32 Report Date: 07/06/2025 [...] Womack M.D. 07/06/2025 9:55 AM Dictation Location: [place] [address] Electronically authenticated by: [id number] Y Date: 509:55 Dictated By: Joan Womack M.D. Signed By:07/06/25956 DD/ 4 TD/TT: Piggery Worker: Authorizing ProviderResult TypeResult StatusCorey Justin DOCLINISYNC IMAGINGFinal Result * (ABNORMAL) URINARY TRACT INFECTION (HTRX) (06/28/2025 11:26 AM EDT) Only the most recent of2 resultswithin the time period is included. ComponentValueRef RangeTest MethodAnalysis TimePerformed AtPathologist Signature ACINETOBACTER NSIMCZHE633.961 - 24.689 ppm06/29/2025 7:56 AM EDTHealthTrackRx at LabPortACINETOBACTER BAUMANIINot Iuvufloc88.961 - 24.689 ppm06/29/2025 7:56 AM EDTHealthTrackRx at LabPortCITROBACTER JKFAZJEG595.000 - 32.015 ppm06/29/2025 7:56 AM EDTHealthTrackRx at LabPortCITROBACTER FREUNDIINot Krahhcun71.000 - 32.015 ppm06/29/2025 7:56 AM EDTHealthTrackRx at LabPortENTEROBACTER AEROGENES, DBVDUZX255.000 - 32.290 ppm06/29/2025 7:56 AM EDTHealthTrackRx at LabPort ENTEROBACTER AEROGENES, CLOACAENot Xfakurda34.000 - 32.290 ppm06/29/2025 7:56 AM EDTHealthTrackRx at LabPortENTEROCOCCUS FAECALIS, EHFOBVY360.000 - 33.043 ppm 06/29/2025 7:56 AM EDTHealthTrackRx at LabPortENTEROCOCCUS FAECALIS, FAECIUMNot Zcpjpskl51.000 - 33.043 ppm06/29/2025 7:56 AM EDTHealthTrackRx at LabPort ESCHERICHIA COLI20.735(A)23.000 - 28.500 ppm06/29/2025 7:56 AM EDTHealthTrackRx at LabPortESCHERICHIA COLIDetected(A)23.000 - 28.500 ppm06/29/2025 7:56 AM EDT [facility] at LabPortKLEBSIELLA PNEUMONIAE, SNTBCQV423.000 - 31.865 ppm 06/29/2025 7:56 AM EDTHealthTrackRx at LabPortKLEBSIELLA PNEUMONIAE, OXYTOCANot Gzyzgtsq37.000 - 31.865 ppm06/29/2025 7:56 AM EDTHealthTrackRx at LabPort MORGANELLA NSQTZYLV421.961 - 24.689 ppm06/29/2025 7:56 AM EDTHealthTrackRx at LabPortMORGANELLA MORGANIINot Cxyakrpk59.961 - 24.689 ppm06/29/2025 7:56 AM EDT [facility] at LabPortPROTEUS MIRABILIS, BFNGYHWA039.000 - 28.500 ppm 06/29/2025 7:56 AM EDTHealthTrackRx at LabPortPROTEUS MIRABILIS, VULGARISNot Dwbomjkz82.000 - 28.500 ppm06/29/2025 7:56 AM EDTHealthTrackRx at [facility] PSEUDOMONAS QOMLEBUQKK198.000 - 31.801 ppm06/29/2025 7:56 AM EDTHealthTrackRx at LabPortPSEUDOMONAS AERUGINOSANot Izuroeip57.000 - 31.801 ppm06/29/2025 7:56 AM EDTHealthTrackRx at LabPortSTAPHYLOCOCCUS QNYTEI378.000 - 31.595 ppm06/29/2025 7:56 AM EDTHealthTrackRx at LabPortSTAPHYLOCOCCUS AUREUSNot Oldulkkl29.000 - 31.595 ppm06/29/2025 7:56 AM EDTHealthTrackRx at LabPortSTREPTOCOCCUS AGALACTIAE (GROUP B STREP)026.000 - 32.435 ppm06/29/2025 7:56 AM EDTHealthTrackRx at LabPortSTREPTOCOCCUS AGALACTIAE (GROUP B STREP)Not Frjwreex75.000 - 32.435 ppm 06/29/2025 7:56 AM EDTHealthTrackRx at LabPortCANDIDA ALBICANS, PARAPSILOSIS, OOOIHPBQTJ081.000 - 30.347 ppm06/29/2025 7:56 AM EDTHealthTrackRx at [facility]Port RINA ALBICANS, PARAPSILOSIS, TROPICALISNot Brznvvkn74.000 - 30.347 ppm 06/29/2025 7:56 AM EDTHealthTrackRx at LabPortCANDIDA ZKEKEBNA724.000 - 31.618 ppm06/29/2025 7:56 AM EDTHealthTrackRx at LabPortCANDIDA GLABRATANot Detected 23.000 - 31.618 ppm06/29/2025 7:56 AM EDTHealthTrackRx at LabPortCANDIDA KRUSEI0 23.000 - 30.873 ppm06/29/2025 7:56 AM EDTHealthTrackRx at LabPortCANDIDA KRUSEI Not Yqdjbxfv79.000 - 30.873 ppm06/29/2025 7:56 AM EDTHealthTrackRx at [facility] SERRATIA SURMILLSNG874.000 - 31.581 ppm06/29/2025 7:56 AM EDTHealthTrackRx at [facility] HealthSERRATIA MARCESCENSNot Cbchlvyj01.000 - 31.581 ppm06/29/2025 7:56 AM EDT [facility] HealthSTREPTOCOCCUS PYOGENES (GROUP A STREP)019.961 - 24.689 ppm06/29/2025 7:56 AM EDTHealthTrackRx at [facility] HealthSTREPTOCOCCUS PYOGENES (GROUP A STREP)Not Gsfqtwvi46.961 - 24.689 ppm06/29/2025 7:56 AM EDTHealthTrackRx at [facility] HealthSTAPHYLOCOCCUS EPIDERMIDIS, HAEMOLYTICUS, LUGDUNENSIS, SAPROPHYTICUS (VUEJZ886.961 - 24.689 ppm06/29/2025 7:56 AM EDTHealthTrackRx at [facility] STAPHYLOCOCCUS EPIDERMIDIS, HAEMOLYTICUS, LUGDUNENSIS, SAPROPHYTICUS (URINANot Owinixnt76.961 - 24.689 ppm06/29/2025 7:56 AM EDTHealthTrackRx at [facility] STAPHYLOCOCCUS EPIDERMIDIS, HAEMOLYTICUS, LUGDUNENSIS, SAPROPHYTICUS (URINA0 19.961 - 24.689 ppm06/29/2025 7:56 AM EDTHealthTrackRx at [facility] HealthSTAPHYLOCOCCUS EPIDERMIDIS, HAEMOLYTICUS, LUGDUNENSIS, SAPROPHYTICUS (URINANot Floktjpk82.961 - 24.689 ppm06/29/2025 7:56 AM EDTHealthTrackRx at [facility] HealthTET B, TET M26.455(A) 23.000 - 27.500 ppm06/29/2025 7:56 AM EDTHealthTrackRx at [facility] HealthTET B, TET M Detected(A)23.000 - 27.500 ppm06/29/2025 7:56 AM EDTHealthTrackRx at [facility] Specimen (Source)Anatomical Location / LateralityCollection Method / Volume Collection TimeReceived YceiHtetu21/20/2025 11:26 AM EDT1 1:41 AM EDT Narrative Authorizing ProviderResult TypeResult StatusCorey Justin DOLAB BLOOD ORDERABLES Final ResultPerforming OrganizationAddressCity/State/ZIP CodePhone Number [facility] [address] [place] [address] * US OB GROWTH (06/14/2025 12:01 PM EDT)Anatomical RegionLateralityModalityOther Specimen (Source)Anatomical Location / LateralityCollection Method / Volume Collection TimeReceived Time06/14/2025 12:01 PM EDT Narrative 06/14/2025 12:04 PM EDT [facility] ?[address] ? [place], [facility] ? Ultrasound Report ? Signed ? Patient: NATALIE CESPEDES S ?MR#: [id number] ?? : 1985 ?Acct:[id number] ?? Age/Sex: 40 / F ?ADM Date: 06/14/25 ?? Loc: US ? Attending Dr: Krupa Olmstead ? Ordering Physician: Krupa Olmstead ?? Date of Service: 06/14/25 ?? Procedure(s): US OB growth ?? Accession Number(s): [id number] ? cc: Krupa Olmstead; Lynn Jose D.O. ? [facility] ? [address] ? [place] [address] ? Patient Name: ?? NATALIE CESPEDES ? MRN: [facility]:[id number] ? date: 1985 ?Sex: F ?? Assigned Patient Location: US ?? Current Patient Location: US ?? Accession/Order Number: [id number] ?? Exam Date: 06/14/2025 ??10:58 ?Report Date: [...] D.O. ??06/14/2025 12:01 PM ? Dictation Location: [facility]22 ? Electronically authenticated by: [id number] ??Y ?? Date: 06/14/2025 ??12:01 ? Dictated By: ?Jacob Almanza M.D. ? Signed By: ?06/14/25 1204 ? DD/ 1201 ? TD/TT: ? Piggery Worker: Procedure Note Radiology, Radiologist, - 06/14/2025 [place] [address] Ultrasound Report Signed Patient: NATALIE CESPEDES SMR#: [id number] : 1985Acct:[id number] Age/Sex: 40 / FADM Date: 06/14/25 Loc: US Attending Dr: Krupa Olmstead Ordering Physician: Krupa Olmstead Date of Service: 06/14/25 Procedure(s): US OB growth Accession Number(s): [id number] cc: Krupa Olmstead; Lynn Jose D.O. The [address] [address] Patient Name: NATALIE CESPEDES MRN: [facility]:[id number] date: 1985 Sex: F Assigned Patient Location: US Current Patient Location: US Accession/Order Number: [id number] Exam Date: 06/14/2025 10:58 Report Date: 06/14/2025 [...] Ovalles Jr.ODamion 06/14/2025 12:01 PM Dictation Location: [employer] Electronically authenticated by: [id number] Y Date: :01 Dictated By: Jacob Almanza M.D. Signed By:06/14/25 1204 DD/ 1201 TD/TT: Piggery Worker: Authorizing ProviderResult TypeResult StatusAmy Ishan PACL[facility] HOSPITALYN IMAGINGFinal Result * US renal complete (05/11/2025 [...] Narrative 05/11/2025 12:55 PM EDT [facility] ?[facility] ?[address] ? [place] [address] ? Ultrasound Report ? Signed ? Patient: Rubina,Natalie S ?MR#: [id number] ?? [id number] ? : 1985 ?Acct:[id number] ? Age/Sex: 40 / F ?ADM Date: 05/10/25 ? Loc: 3E ?Room: ??8J3021-1 ?Type: REG CLI ?? Attending Dr: Shaun [...] Procedure Note Deshaun Alanis MD - 05/11/2025 [facility] Main [place] [id number] Ultrasound Report Signed Patient: Natalie Cespedes [facility]#: [id number] : 1985Acct:[id number] Age/Sex: 40 / FADM Date: 05/10/25 Loc: Room: 1U8490-2Tgxr: REG CLI Attending Dr: Shaun Rebollar MD [...] Alanis M.D. 05/11/2025 12:52 PM Dictation Location: [place] [address] Tech: Chantell Blake Transcribed By: [facility] 05/11/25 1252 Dictated By: Deshaun Alanis II, MD 05/11/25 1252 Signed By: <Electronically signed by Deshaun Alanis II, MD inOV> 05/11/25 1252 Authorizing ProviderResult TypeResult StatusShaun Rebollar MDIMG US PROCEDURES Final Result * (ABNORMAL) CBC auto differential (05/10/2025 11:10 PM EDT)ComponentValueRef RangeTest MethodAnalysis TimePerformed AtPathologist HfvmtkgouICD38.3(H)3.8 - 11.6 [CFU]/mL05/10/2025 11:25 PM [facility] CtrUNCORRECTED WHITE BLOOD COUNT19.3(H)3.8 - 11.6 10*3/uL05/10/2025 11:25 PM [facility] CtrRBC4.053.60 - 5.00 10*6/uL05/10/2025 11:25 PM [facility] GixFYRZXVMLRM29.3(L)11.8 - 15.4 g/dL05/10/2025 11:[facility] SiiXVFEETVBEG41.0(L)34.0 - 46.4 %05/10/2025 11:25 PM [facility] OiaUWO80.480 - 100 fL05/10/2025 11:25 [facility] VhjJGN62.924.7 - 34.3 pg05/10/2025 11:25 PM [facility] NxfSEKL44.232.0 - 35.0 g/dL05/10/2025 11:25 PM [facility] CtrRED CELL DISTRIBUTION WIDTH, RDW14.611.9 - 15.3 %05/10/2025 11:25 PM [facility] CtrPLATELET JNJXA573940 - 450 10*3/uL05/10/2025 11:25 PM [facility] CtrMEAN PLATELET VOLUME, MPV7.36.3 - 10.7 fL05/10/2025 11:25 PM [facility] CtrNEUTROPHILS, %91.2. %05/10/2025 11:25 PM [facility] Ctr LYMPHOCYTES, %4.8. %05/10/2025 11:25 PM [facility] Ctr MONOCYTE/MACROPHAGE, %3.2. %05/10/2025 11:25 PM [facility] CtrEOSINOPHILS, %0.4. %05/10/2025 11:25 PM [facility] Ctr BASOPHILS, %0.4. %05/10/2025 11:25 PM [facility] CtrNRBC0.1 0 - 0.5 /100{WBC}05/10/2025 11:25 PM [facility] Ctr UKPGIKOIOMC98.6(H)1.8 - 7.7 10*3/uL05/10/2025 11:25 PM [facility] CtrLYMPHOCYTES0.9(L)1.00 - 4.8 10*3/uL5 11:[facility] CtrMONOCYTES0.60.0 - 0.8 10*305/10/2025 11:25 PM EDT [facility] CtrEOSINOPHILS0.10.0 - 0.45 10*305/10/2025 11:[facility] CtrBASOPHILS0.10.0 - 0.2 10*305/10/2025 11:25 PM [facility] CtrSpecimen (Source)Anatomical Location / LateralityCollection Method / VolumeCollection TimeReceived TimeBlood (Blood)05/10/2025 11:10 PM EDT05/10/2025 11:18 PM EDT Narrative Authorizing ProviderResult TypeResult StatusShaun MONTILLA BLOOD ORDERABLESFinal ResultPerforming OrganizationAddressCity/State/ZIP CodePhone Number [address] [address], [facility] [address] [place] [address] * Lipase (05/10/2025 11:10 PM EDT)ComponentValueRef RangeTest MethodAnalysis TimePerformed AtPathologist RghwbzibbTUPBDE09.011.0 - 82.0 U/L05/10/2025 11:45 PM [facility] CtrSpecimen (Source)Anatomical Location / LateralityCollection Method / VolumeCollection TimeReceived TimeOther Topography unknown / Ileodpc3005/10/2025 11:10 PM EDT05/10/2025 11:18 PM EDT Narrative Authorizing ProviderResult TypeResult StatusShaun MONTILLA BLOOD ORDERABLESFinal ResultPerforming OrganizationAddressCity/State/ZIP CodePhone Number [facility] [address] [place] [address], [facility] [address] [place] [address] * Amylase (05/10/2025 11:10 PM EDT)ComponentValueRef RangeTest MethodAnalysis TimePerformed AtPathologist [id number] - 103 U/L05/10/2025 11:45 PM [facility] CtrSpecimen (Source)Anatomical Location / LateralityCollection Method / VolumeCollection TimeReceived TimeOther Topography unknown / Eyldkwl2205/10/2025 11:10 PM EDT05/10/2025 11:18 PM EDT Narrative Authorizing ProviderResult TypeResult StatusShaun Rebollar MDLAB BLOOD ORDERABLESFinal ResultPerforming OrganizationAddressCity/State/ZIP CodePhone Number [facility] [facility] [address] [place] [address], [facility] [address] [place] [address] * (ABNORMAL) Comprehensive metabolic panel (05/10/2025 11:10 PM EDT)Component ValueRef RangeTest MethodAnalysis TimePerformed AtPathologist SignatureGlucose 111(H)70 - 100 mg/dL05/10/2025 11:45 PM [facility] Comment: Random Glucose Reference Range is dependent on time and content of last meal. Glucose of more than 200 mg/dL in a nonstressed, ambulatory subject supports the diagnosis of Diabetes Mellitus. ADA recommended reference range QQA763 - 25 mg/dL05/10/2025 11:45 PM [facility] CtrCREATININE 0.680.60 - 1.20 mg/dL05/10/2025 11:45 PM [facility] ESTIMATED GFR>60. 11:45 PM [facility] CslKydhyo965 136 - 145 mmol/L05/10/2025 11:45 PM [facility] CtrPotassium, Bld3.93.5 - 5.1 mmol/L05/10/2025 11:45 PM [facility] Qpnkicdg88263 - 107 mmol/L05/10/2025 11:45 PM [facility] Carbon Askhbbq82.3(L)21.0 - 31.0 mmol/L05/10/2025 11:45 PM [facility] CtrAnion Gap14.66.0 - 15.009 11:45 PM [facility] CtrCalcium9.18.6 - 10.3 mg/dL05/10/2025 11:45 PM [facility] CtrTOTAL PROTEIN6.3(L)6.4 - 8.9 g/dL05/10/2025 11:45 PM [facility] CtrALBUMIN LEVEL3.63.5 - 5.7 g/dL05/10/2025 11:45 PM EDT [facility] CtrGLOBULIN2.7g/dL05/10/2025 11:45 PM [facility] CtrALBUMIN/GLOBULIN RATIO1.309 11:45 PM [facility] CtrBILIRUBIN,TOTAL0.40.3 - 1.0 mg/dL05/10/2025 11:45 PM EDT [facility] CtrASPARTATE AMINO YQMVEAGHEUL8553 - 39 U/L05/10/2025 11:45 PM [facility] CtrALANINE SLITDLYONUVCDUBM420 - 52 U/L 05/10/2025 11:45 PM [facility] CtrALKALINE AHJWAJVQUHF0023 - 104 U/L05/10/2025 11:45 PM [facility] CtrCREATININE CLR CALC KTHKQDAB759.8705/10/2025 11:45 PM [facility] CtrSpecimen (Source)Anatomical Location / LateralityCollection Method / VolumeCollection TimeReceived TimeOtherTopography unknown / Ojzwjvl1505/10/2025 11:10 PM EDT 05/10/2025 11:18 PM EDT Narrative Authorizing ProviderResult TypeResult StatusShaun Rebollar MDLAB BLOOD ORDERABLESFinal ResultPerforming OrganizationAddressCity/State/[facility] CodePhone Number [facility] [address] [place] [address], [facility] [address] [place] [address] * fibronectin (05/10/2025 11:05 PM EDT)ComponentValueRef RangeTest Method Analysis TimePerformed AtPathologist SignatureFETAL FIBRONECTINNegative Gdosfesf59/02/2025 12:02 AM [facility] CtrSpecimen (Source) Anatomical Location / LateralityCollection Method / VolumeCollection Time Received TimeOtherTopography unknown / Atxapyt8205/10/2025 11:05 PM EDT 05/10/2025 11:19 PM EDT Narrative [facility] - 05/11/2025 12:02 AM EDT Comment patients 22 - 34 6/7 weeks prior to vaginal exam Authorizing ProviderResult TypeResult StatusShaun Rebollar MDLAB BODY FLUIDS AND STOOLS ORDERABLESFinal ResultPerforming OrganizationAddressCity/State/ZIP Code Phone Number [facility] [address] [place] [address], [facility] [address] [place] [address] * (ABNORMAL) AEROBIC DAVE CHARGE (NMIC56) (05/10/2025 10:30 PM EDT)ComponentValue Ref RangeTest MethodAnalysis TimePerformed AtPathologist SignatureAMIKACIN<16 (S)05/13/2025 7:51 AM [facility] CtrAMOXACILLIN/K CLAVULANATE<8/4(S)05/13/2025 7:51 AM [facility] AMPICILLIN>16(R)05/13/2025 7:51 AM [facility] AMPICILLIN/RKHOYRXJC06/8(I)05/13/2025 7:51 AM [facility] CtrAZTREONAM<4(S)05/13/2025 7:51 AM [facility] CtrCEFAZOLIN <2(S)05/13/2025 7:51 AM [facility] CtrCEFEPIME<2(S) 05/13/2025 7:51 AM [facility] CtrCEFTAZIDIME<1(S)05/13/2025 7:51 AM [facility] CtrCEFTAZIDIME/AVIBACTAM<4(S)05/13/2025 7:51 AM [facility] CtrCEFTOLOZANE/TAZOBACTAM<2(S) 05/13/2025 7:51 AM [facility] CtrCEFTRIAXONE<1(S)05/13/2025 7:51 AM [facility] CtrCEFUROXIME<4(S)05/13/2025 7:51 AM [facility] CtrCIPROFLOXACIN<0.25(S)05/13/2025 7:[facility]ERTAPENEM<0.5(S)05/13/2025 7:51 AM [facility] CtrGENTAMICIN<2(S)05/13/2025 7:51 AM [facility] CtrLEVOFLOXACIN<0.5(S)05/13/2025 7:51 AM [facility] CtrMEROPENEM<1(S)05/13/2025 7:51 AM [facility] MEROPENEM/VABORBACTAM<2(S)05/13/2025 7:51 AM [facility] NITROFURANTOIN<32(S)05/13/2025 7:51 AM [facility] PIPERACILLIN/TAZOBACTAM<8(S)05/13/2025 7:51 AM [facility] CtrTETRACYCLINE<4(S)05/13/2025 7:51 AM [facility] TIGECYCLINE<2(S)05/13/2025 7:51 AM [facility] CtrTOBRAMYCIN <2(S)05/13/2025 7:51 AM [facility] TRIMETHOPRIM/SULFAMETHOXAZOLE<0.5/9.5(S)05/13/2025 7:51 AM [facility] CtrSpecimen (Source)Anatomical Location / Laterality Collection Method / VolumeCollection TimeReceived TimeUrineUrine specimen obtained by clean catch procedure / Fytsmsl3205/10/2025 10:30 PM EDT05/10/2025 10:55 PM EDTComment:Clean-Voided Midstream Narrative Authorizing ProviderResult TypeResult StatusShaun Rebollar MDFIRELANDSFinal ResultPerforming OrganizationAddressCity/State/ZIP CodePhone Number [facility] [address] [place] [address], [facility] [address] [place] [address] * (ABNORMAL) Urinalysis with reflex microscopic (05/10/2025 10:30 PM EDT) ComponentValueRef RangeTest MethodAnalysis TimePerformed AtPathologist SignatureCOLOR,SNDXOLsqygvZlpxrr60/01/2025 10:59 PM [facility] CtrAPPEARANCE,URINETurbid(AA)Clear05/10/2025 10:59 PM [facility] CtrSPECIFICY GRAVITY,URINE1.0221.001 - 1.034175 10:59 PM [facility] CtrPH,URINE5.55.0 - 9.009 10:59 PM [facility] CtrLEUKOCYTE ESTERASE,URINE4+Hpagvevq83/01/2025 10:59 PM [facility] CtrNITRITE,URINENegativeNegative 05/10/2025 10:59 PM [facility] CtrPROTEIN,YOZON674Eqzhagwo mg/dL05/10/2025 10:59 PM [facility] CtrGLUCOSE,URINE (UA) NormalNormal mg/dL05/10/2025 10:59 PM [facility] KETONES,URINE2+Kxfgvmbd75/01/2025 10:59 PM [facility] UROBILINOGEN,URINENormalNormal mg/dL05/10/2025 10:59 PM [facility] CtrBILIRUBIN,PYXQMMukpmjmlTnbfogvv32/01/2025 10:59 PM [facility] CtrOCCULT BLOOD,URINE2+Tbzjpklk21/01/2025 10:59 PM [facility] CtrRBC,QHVAE82-831 - 4 [HPF]05/10/2025 11:13 PM [facility] CtrWBC,URINEInnumerable0 - 4 [HPF]05/10/2025 11:13 PM [facility] CtrWBC CLUMP, URINEManyNone Seen [LPF] 05/10/2025 11:13 PM [facility] CtrSQUAMOUS EPITHELIAL CELL,URINE1-20 - 2 [HPF]05/10/2025 11:13 PM [facility] BACTERIA,URINE2+None Seen [HPF]05/10/2025 11:13 PM [facility] CtrHYALINE CASTS,URINENone0 - 8 [LPF]05/10/2025 11:13 PM [facility] CtrMUCUS,URINE4+(AA)[LPF]05/10/2025 11:13 PM [facility] CtrSpecimen (Source)Anatomical Location / Laterality Collection Method / VolumeCollection TimeReceived JfazYelcb32/01/2025 10:30 PM EDT05/10/2025 10:55 PM EDT Narrative [facility] - 05/10/2025 11:13 PM EDT Comment c/o urinary symptoms or increased blood pressure Name Collection Type:: Clean-Voided Midstream Authorizing ProviderResult TypeResult StatusShaun MONTILLA URINE ORDERABLESFinal ResultPerforming OrganizationAddressCity/[facility] MidtownPhone Number [facility] [address] [place] [address], [facility] [address] [place] [address] * Urine culture (05/10/2025 10:30 PM EDT)ComponentValueRef RangeTest Method Analysis TimePerformed AtPathologist SignatureFRMC ORGANISMEscherichia coli 05/13/2025 7:51 AM [facility] CtrCOLONY COUNT>100,000 05/13/2025 7:51 AM [facility] CtrSpecimen (Source) Anatomical Location / LateralityCollection Method / VolumeCollection Time Received TimeUrineUrine specimen obtained by clean catch procedure / Unknown 05/10/2025 10:30 PM EDT05/10/2025 10:55 PM EDTComment:Clean-Voided Midstream Narrative Authorizing ProviderResult TypeResult Jeff MONTILLA MICROBIOLOGY - GENERAL ORDERABLESFinal ResultPerforming OrganizationAddressCity/State/ZIP Code Phone Number [facility] [address] [place] [address], [facility] [address] [place] [address] * US OB PLACENTA (04/15/2025 4:27 PM EDT)Anatomical RegionLateralityModality OtherSpecimen (Source)Anatomical Location / LateralityCollection Method / VolumeCollection TimeReceived Time04/15/2025 4:27 PM EDT Narrative 04/15/2025 4:30 PM EDT [facility] ?[address] ? [place] [address] ? Ultrasound Report ? Signed ? Patient: NATALIE CESPEDES ?MR#: [id number] ?? : 1985 ?Acct:[id number] ?? Age/Sex: 40 / F ?ADM Date: ?? Loc: [facility] ??250-1 ? Attending Dr: Candice Anderson D.O. ? Ordering Physician: Candice Anderson D.O. ?? Date of Service: 04/15/25 ?? Procedure(s): US OB placenta ?? Accession Number(s): [id number] ? cc: Candice Anderson D.O.; Lynn Jose D.O. ? [facility] ? [address] ? [place] [address] ? Patient Name: ?? NATALIE CESPEDES ? MRN: [facility]:[id number] ? date: 1985 ?Sex: F ?? Assigned Patient Location: [facility] ?? Current Patient Location: ? Accession/Order Number: [id number] ?? Exam Date: 04/15/2025 ??16:26 ?Report Date: [...] D.ODamion ??04/15/2025 4:27 PM ? Dictation Location: [facility]-- ? Electronically authenticated by: [id number] ??Y ?? Date: 04/15/2025 ??16:27 ? Dictated By: ?Jacob Almanza M.D. ? Signed By: ?04/15/25 1630 ? DD/ 1627 ? TD/TT: ? Piggery Worker: Procedure Note Radiology, Radiologist, MD - 04/16/2025 [place] [address] Ultrasound Report Signed Patient: NATALIE CESPEDES [facility]#: [id number] : 1985Acct:[id number] Age/Sex: 40 / FADM Date: Loc: [facility] 250- Attending Dr: Candice Anderson D.O. Ordering Physician: Candice Anderson D.O. Date of Service: 04/15/25 Procedure(s): US OB placenta Accession Number(s): [id number] cc: Candice Anderson D.O.; Lynn Jose D.O. The [place] [id number] Patient Name: NATALIE CESPEDES MRN: [id number] date: 1985 Sex: F Assigned Patient Location: [facility] Current Patient Location: Accession/Order Number: [id number] Exam Date: 04/15/2025 16:26 Report Date: 04/15/2025 [...] Jr., D.O. 04/15/2025 4:27 PM Dictation Location: [place] [address] Electronically authenticated by: [id number] Y Date: 6:27 Dictated By: Jacob Almanza M.D. Signed By:04/15/25 1630 DD/ 1627 TD/TT: Piggery Worker: Authorizing ProviderResult TypeResult StatusCorey Justin DOCLINISYNC IMAGINGFinal Result * US OB CERVICAL LENGTH (04/15/2025 4:27 PM EDT)Anatomical RegionLaterality ModalityOtherSpecimen (Source)Anatomical Location / LateralityCollection Method / VolumeCollection TimeReceived Time04/15/2025 4:27 PM EDT Narrative 04/15/2025 4:30 PM EDT [facility] ?[address] ? [place] [address] ? Ultrasound Report ? Signed ? Patient: RUBINA,NATALIE S ?MR#: [id number] ?? : 1985 ?Acct:[id number] ?? Age/Sex: 40 / F ?ADM Date: ?? Loc: [facility] ??250-1 ? Attending Dr: Candice Anderson D.O. ? Ordering Physician: Candice Anderson D.O. ?? Date of Service: 04/15/25 ?? Procedure(s): US OB cervical length ?? Accession Number(s): [id number] ? cc: Candice Anderson D.O.; Lynn Jose D.O. ? [facility] ? [address] ? [place] [address] ? Patient Name: ?? NATALIE CESPEDES ? MRN: [facility]:[id number] ? date: 1985 ?Sex: F ?? Assigned Patient Location: [facility] ?? Current Patient Location: ? Accession/Order Number: [id number] ?? Exam Date: 04/15/2025 ??16:26 ?Report Date: [...] ultrasound. ? Impression dictated by: Lily Ovalles Jr..Marilee ??04/15/2025 4:27 PM ? Dictation Location: [facility]-- ? Electronically authenticated by: [id number] ??Y ?? Date: 04/15/2025 ??16:27 ? Dictated By: ?Jacob Almanza M.D. ? Signed By: ?04/15/25 1630 ? DD/ 1627 ? TD/TT: ? Piggery Worker: Procedure Note Radiology, Radiologist, - 04/16/[address] [address] Ultrasound Report Signed Patient: RUBINAZOILA QUINNHER [facility]#: [id number] : 1985Acct:[id number] Age/Sex: 40 / FADM Date: Loc: [facility] 250-[address]: Candice Anderson D.O. Ordering Physician: Candice Anderson D.O. Date of Service: 04/15/25 Procedure(s): US OB cervical length Accession Number(s): [id number] cc: Candice Anderson D.O.; Lynn Jose D.O. [place] [address] Patient Name: NATALIE CESPEDES MRN: [facility]:[id number] date: 1985 Sex: F Assigned Patient Location: [facility] Current Patient Location: Accession/Order Number: [id number] Exam Date: 04/15/2025 16:26 Report Date: 04/15/2025 [...] Jr., D.O. 04/15/2025 4:27 PM Dictation Location: [place] [address] Electronically authenticated by: [id number] Y Date: 6:27 Dictated By: Jacob Almanza M.D. Signed By:04/15/25 1630 DD/ 1627 TD/TT: Piggery Worker: Authorizing ProviderResult TypeResult StatusCorey Justin DOCLINISYNC IMAGINGFinal Result * (ABNORMAL) [facility] URINE MICROSCOPIC ONLY (04/15/2025 2:55 PM EDT)ComponentValue Ref RangeTest MethodAnalysis TimePerformed AtPathologist SignatureTBH XHA57-97 (A)NONE SEEN #/HPFTBHTBH RBC0-20 - 2 #/HPFTBHBACTERIA URINELARGE(A)NONE SEEN #/HPFTBHMUCUS URINEMODERATE(A)NONE SEENTBHSQUAMOUS EPITHELIAL CELL URINE MODERATE(A)NONE/RARE #/LPFTBHCRYSTALS SEEN?None SeenNone Seen #/HPFTBHCAST SEEN?NONE SEENNONE SEEN #/LPFTBHURINE CULTURE INDICATEDYES-LCTBHSpecimen (Source)Anatomical Location / LateralityCollection Method / VolumeCollection TimeReceived Time04/15/2025 2:55 PM EDT04/15/2025 3:05 PM EDT Narrative [facility] - 04/15/2025 3:33 PM EDT Authorizing ProviderResult TypeResult StatusCorey Justin DOCLINISYNCFinal Result Performing OrganizationAddressCity/State/ZIP CodePhone Number [facility] * (ABNORMAL) [facility] UA (CLEAN/CATCH) CONTINUOUS MINING MACHINE LODE MINER/MICRO IF IND. (04/15/2025 2:55 PM EDT) ComponentValueRef RangeTest MethodAnalysis TimePerformed AtPathologist SignatureCOLOR URINELT. YELLOWYELLOWTBHCLARITY URINESL CLOUDYCLEARTBHSPECIFIC GRAVITY URINE1.0151.005 - 1.025TBHPH URINE6.55.0 - 9.0TBHPROTEIN URINETRACE NEG/TRACE mg/dLTBHGLUCOSE URINE UANEGATIVENEGATIVE mg/dLTBHBILIRUBIN URINE NEGATIVENEGATIVETBHKETONES URINENEGATIVENEGATIVE mg/dLTBHBLOOD URINENEGATIVE NEGATIVETBHNITRITE URINEPOSITIVE(A)NEGATIVETBHUROBILINOGEN URINE1.00.2 - 1.0 EU/dLTBHLEUKOCYTE ESTERASE URINESMALL(A)NEGATIVETBHURINE MICROSCOPIC INDICATED YESTBHSpecimen (Source)Anatomical Location / LateralityCollection Method / VolumeCollection TimeReceived Time04/15/2025 2:55 PM EDT04/15/2025 3:05 PM EDT Narrative [facility] - 04/15/2025 3:33 PM EDT Authorizing ProviderResult TypeResult StatusCorey Justin DOCLINISYNCFinal Result Performing OrganizationAddressCity/State/ZIP CodePhone Number KAYLIEISYNC [facility] * Pap Smear (02/09/2025 12:00 AM EDT)Specimen (Source)Anatomical Location / LateralityCollection Method / VolumeCollection TimeReceived TimeSwabCervical swab / Unknown Narrative Authorizing ProviderResult TypeResult StatusAmy Ishan CASTANEDA CYTOLOGY ORDERABLES Final ResultPerforming OrganizationAddressCity/State/ZIP CodePhone Number EXTERNAL LAB from Last 3 Months or Most Recently Relevant to Health Maintenance Insurance
--- OUTSIDE RECORDS SUMMARY | 2025-07-09 11:11 | XMS_ITS | Clinical Summary ---
Author Organization [facility] Address [address], [address] [place] [address] Care Team Providers Care Dynamo Tender Name Role Phone Unavailable Primary Care Provider [...] InformationValueDate RecordedSex Assigned at BirthNot on fileLegal RjeUegalq77/21/2015 4:35 PM EDTGender IdentityNot on fileSexual OrientationNot on file Last Filed Vital Signs Vital SignReadingTime TakenCommentsBlood Vgmtcqmk860/8703/30/2016 3:03 PM EDT Ljilk68105/22/2016 3:03 PM ZGTGfxlkzmykvm58.7 ??C (98.1 ??F)03/30/2016 3:03 PM EDTRespiratory Qnds431703/30/2016 3:03 PM EDTOxygen Staxuszamw01%03/30/2016 3:03 PM EDTInhaled Oxygen Concentration--Vfmmkv14.4 kg (186 lb)03/30/2016 3:03 PM EDT Ccjikk815.6 cm (5' 4 )03/30/2016 3:03 PM EDTBody Mass Index31.9303/30/2016 3:03 PM EDT Plan of Treatment Not on file
--- OUTSIDE RECORDS SUMMARY | 2025-07-09 11:11 | XMS_ITS | Encounter Summary ---
Author Organization [facility] Address [address] [facility] [facility] [place] [address] Care Team Providers Care Heading Saw Operator Name Role Phone Unavailable Primary Care Provider Unavailabl e Encounter Details DateTypeDepartmentCare Team (Latest Contact Info)Eykrpphcaio89/22/2025Telephone [facility] [place] [facility] [address] [place] [address] Hina Moura [place] Social History Tobacco UseTypesPacks/DayYears UsedDateSmoking Tobacco: Never Assessed Estimated Date of OoesbhgcCkufrqipAtu79/20/2025Based on UltrasoundSex and Gender InformationValueDate RecordedSex Assigned at NlicmSqyfzo54/21/2025 1:58 PM EST Legal AwoFffcwl12/15/2023 6:58 PM EDTGender IivgyxtoLfplpl21/21/2025 1:58 PM EST Sexual CebyjfehiycPsyiqqhk65/21/2025 1:58 PM ESTdocumented as of this encounter [...]
--- OUTSIDE RECORDS SUMMARY | 2025-07-09 11:11 | XMS_ITS | Encounter Summary ---
Author Organization [facility] Address [address] [facility] [place] [address] Care Team Providers Care Prototype Engineer Name Role Phone Unavailable Primary Care Provider Unavailabl e Encounter Details DateTypeDepartmentCare Team (Latest Contact Info)Eebgumawivz08/22/2025bstract [facility] [place] [facility] [address] [place] [address] Martell HinaCENTRALIA, [place] Social History Tobacco UseTypesPacks/DayYears UsedDateSmoking Tobacco: Never Assessed Estimated Date of PhvboibuXcngasglBli36/20/2025Based on UltrasoundSex and Gender InformationValueDate RecordedSex Assigned at DvqyyDfaqxg72/21/2025 1:58 PM EST Legal AseWvabqp55/15/2023 6:58 PM EDTGender IcazordzOxnqys32/21/2025 1:58 PM EST Sexual FmbcphzrcojHbpaanjd03/21/2025 1:58 PM ESTdocumented as of this encounter Plan of Treatment Not on file documented as of this encounter Visit Diagnoses Not on filedocumented in this encounter
--- OUTSIDE RECORDS SUMMARY | 2025-07-09 11:12 | XMS_ITS | Encounter Summary ---
Author Organization [facility] Address [address] [facility] [place] [address] Care Team Providers Care Special Needs Caregiver Name Role Phone Unavailable Primary Care Provider Unavailabl e Encounter Details DateTypeDepartmentCare Team (Latest Contact Info)Pjtpgskkruw46/20/2025Bamboo flowsheet [facility] [facility] [address] [place] [address] Greg Anderson DO [address] [place] [address] Social History Tobacco UseTypesPacks/DayYears UsedDateSmoking Tobacco: Never Assessed Estimated Date of HsdaxgnfIuuhyyzdNpt46/20/2025Based on UltrasoundSex and Gender InformationValueDate RecordedSex Assigned at VqxyyNfbisf38/21/2025 1:58 PM EST Legal HdeSxqhre95/15/2023 6:58 PM EDTGender RovjjcjyFtdzle79/21/2025 1:58 PM EST Sexual IyqixtskwbhSsneyugp50/21/2025 1:58 PM ESTdocumented as of this encounter Plan of Treatment Not on file documented as of this encounter Visit Diagnoses Not on filedocumented in this encounter
--- OUTSIDE RECORDS SUMMARY | 2025-07-09 11:12 | XMS_ITS | Encounter Summary ---
Author Organization [facility] Address [address] [facility] [place] [address] Care Team Providers Care Manager Business Banking Name Role Phone Unavailable Primary Care Provider Unavailabl e Encounter Details DateTypeDepartmentCare Team (Latest Contact Info)Bewjsyrupsj01/29/2025Bamboo flowsheet [facility] [address] [place] [address] Krupa Hernandez PA [address] [place], [facility] Social History Tobacco UseTypesPacks/DayYears UsedDateSmoking Tobacco: Never Assessed Estimated Date of FeywuhhkJraxlqidGkv40/20/2025Based on UltrasoundSex and Gender InformationValueDate RecordedSex Assigned at DhyleHvnnrf63/21/2025 1:58 PM EST Legal YspIvstjd84/15/2023 6:58 PM EDTGender LdeogqqgOfnjep14/21/2025 1:58 PM EST Sexual MxihxqevwzxQqqpjdpl60/21/2025 1:58 PM ESTdocumented as of this encounter Plan of Treatment Not on file documented as of this encounter Visit Diagnoses Not on filedocumented in this encounter
[2025-07-09 11:14] VITALS: BP 125/76; PULSE 93
== END 2025-07-09 12:11 | disposition home or self-care (01) ==
LOC: FBCO 11:10 → FBC 11:10
PROVIDERS: PCP Family Medicine; Visit Provider Obstetrics & Gynecology
DX: O24.419 Gestational diabetes mellitus in pregnancy, unspecified control (principal); Z3A.37 37 weeks gestation of pregnancy
CPT/HCPCS: 59025

== ENCOUNTER 2025-07-11 16:45 | Inpatient (IN) | payer BC, SELFPAY ==
--- OUTSIDE RECORDS SUMMARY | 2025-06-28 08:40 | XMS_ITS | Encounter Summary ---
Author Organization [facility] Address [address] [facility] [place] [address] Care Team Providers Care Lime Hide Inspector Name Role Phone Unavailable Primary Care Provider Unavailabl e Reason for Referral * (Routine) - IncompleteSpecialtyDiagnoses / ProceduresReferred By Contact Referred To ContactRadiology Diagnoses Chronic hypertension Palpitations Procedures Echocardiogram 2D complete Greg Anderson DO [address] [place] [address] Phone: tel: fax: Referral IDStatusReasonStart DateExpiration DateVisits RequestedVisits [id number] Perform Procedure / Reason for Visit * ReasonCommentsRoutine Visit Encounter Details DateTypeDepartmentCare Team (Latest Contact Info)Uvrwmqwndey64/20/2025 9:40 AM EDTRoutine [facility] [address] [place] [phone] Greg Anderson DO [address] [place] [address] 35 weeks gestation of ([facility]); Third trimester ([facility]); Gestational diabetes mellitus (GDM), antepartum, gestational diabetes method of control unspecified([facility]); Chronic hypertension; H/O miscarriage, currently ([facility]); UTI symptoms; Palpitations; Heartburn during , antepartum ([facility]) Social History Tobacco UseTypesPacks/DayYears UsedDateSmoking Tobacco: Never Assessed Estimated Date of WxeflbjmCmmqihflOzq46/20/2025Based on UltrasoundSex and Gender InformationValueDate RecordedSex Assigned at KfiviRfssvc70/21/2025 1:58 PM EST Legal UcyAcsejj51/15/2023 6:58 PM EDTGender RjzacgxzHdxdar16/21/2025 1:58 PM EST Sexual TwnoimirvddThsnredr77/21/2025 1:58 PM ESTdocumented as of this encounter Last Filed Vital Signs Vital SignReadingTime TakenCommentsBlood Zajxcqwc019/801 9:58 AM EDT Pulse--Temperature--Respiratory Rate--Oxygen Saturation--Inhaled Oxygen Concentration--Zqomqs147 kg (269 lb)06/28/2025 9:58 AM EDTHeight--Body Mass Index--documented in this encounter Progress Notes * Sanaz Mcconnell LPN - 06/28/2025 9:40 AM EDT Reason for Appointment: Patient ID: Pallavi Wen is a 40 y.o. female who presents for Routine Visit Patient presents today for Return OB appointment.. MEDICATIONS Current Outpatient Medications Medication Instructions Alcohol Swabs (Alcohol Prep Pad) 70 % pads 1 Pad, Topical, Daily, Use four times daily to check FSBS. aspirin 81 mg, Daily Blood Glucose Monitoring Suppl ([employer] Blood Glucose Meter) device 1 kit, Does not apply, 4 times daily cephalexin (KEFLEX) 500 mg, 4 times daily HYDROmorphone (DILAUDID) 2 mg, Every 6 hours PRN labetalol (NORMODYNE) 200 mg, Oral, 3 times daily omeprazole (PriLOSEC) [address] capsule PLEASE SEE ATTACHED FOR DETAILED DIRECTIONS phenazopyridine (PYRIDIUM) 100 mg, Oral, 3 times daily PRN MV-Min-Fe Fum-FA-DHA ( 1 PO) Take by mouth venlafaxine XR (EFFEXOR XR) 150 mg, Daily ALLERGIES Allergies Allergen Reactions Sulfa Antibiotics Swelling Other Reaction(s): Swelling of throat Sulfamethoxazole-Trimethoprim Unknown PROBLEMS Active Ambulatory Problems Diagnosis Date Noted No Active Ambulatory Problems Resolved Ambulatory Problems Diagnosis Date Noted No Resolved Ambulatory Problems No Additional Past Medical History HISTORY PAST MEDICAL HISTORY SOCIAL HISTORY History reviewed. No pertinent past medical history. Social History Tobacco Use Smoking status: Not on file Smokeless tobacco: Not on file Substance Use Topics Alcohol use: Not on file Drug use: Not on file FAMILY HISTORY No family history on file. SURGICAL HISTORY History reviewed. No pertinent surgical history. REVIEW OF SYSTEMS Review of Systems: Review of Systems Constitutional: Negative. HENT: Negative. Eyes: Negative. Respiratory: Negative. Cardiovascular: Negative. Gastrointestinal: Negative. Genitourinary: Negative. Musculoskeletal: Negative. Skin: Negative. Neurological: Negative. All other systems reviewed and are negative. Hematological: Negative. Endocrine: Negative. Allergic/Immunologic: Negative. OBJECTIVE Objective: Physical Exam Constitutional: Appearance: Normal appearance. She is well-developed. Cardiovascular: Rate and Rhythm: Normal rate and regular rhythm. Pulmonary: Effort: Pulmonary effort is normal. Breath sounds: Normal breath sounds. Abdominal: General: Bowel sounds are normal. There is no distension. Palpations: Abdomen is soft. Tenderness: There is no abdominal tenderness. There is no guarding or rebound. Musculoskeletal: General: No swelling. Normal range of motion. Right lower leg: No edema. Left lower leg: No edema. Neurological: Mental Status: She is alert and oriented to person, place, and time. Skin: General: Skin is warm and dry. Psychiatric: Mood and Affect: Mood normal. Behavior: Behavior normal. Vitals and nursing note reviewed. Exam conducted with a architectural associate present. Vitals: There is no height or weight on file to calculate BMI. BP: 120/80 No LMP recorded. Patient is . Assessment/Plan ICD-10-CM 1. 35 weeks gestation of ([facility]) Z3A.35 POCT urinalysis dipstick manually resulted US biophysical profile w non stress test 2. Third trimester ([facility]) Z34.93 POCT urinalysis dipstick manually resulted US biophysical profile w non stress test 3. Gestational diabetes mellitus (GDM), antepartum, gestational diabetes method of control unspecified ([facility]) O24.419 POCT urinalysis dipstick manually resulted US biophysical profile w non stress test 4. Chronic hypertension I10 US biophysical profile w non stress test 5. H/O miscarriage, currently ([facility]) O09.299 US biophysical profile w non stress test 6. UTI symptoms R39.9 Urine culture Patient presents today for a routine obstetrics appointment. Patient is currently 35w4d with a Estimated Date of Delivery: 07/29/25. Patient to have GBS at next appointment. Patient is to schedule NST/BPP's at [facility] to get started. Patient voiced that vomiting has increased. Patient to also setup ECHO and EKG at [facility]. Patient to return to clinic in 1 week to sign IOL consents and have GBS obtained. Documented by Sanaz Mcconnell LPN on behalf of: Greg Anderson DO documented in this encounter Plan of Treatment NameTypePriorityAssociated DiagnosesOrder ScheduleUS biophysical profile w non stress testImagingRoutine 35 weeks gestation of ([facility]) Third trimester ([facility]) Gestational diabetes mellitus (GDM), antepartum, gestational diabetes method of control unspecified([facility]) Chronic hypertension H/O miscarriage, currently ([facility]) Expected: 06/28/2025 (Approximate), Expires: 12/27/2025Urine cultureMicrobiology Routine UTI symptoms Ordered: 06/28/2025ECG 12 lead unit performedECGRoutine Chronic hypertension Palpitations Expected: 06/28/2025 (Approximate), Expires: 06/28/2026Echocardiogram 2D completeEchocardiographyRoutine Chronic hypertension Palpitations Expected: 06/28/2025 (Approximate), Expires: 06/28/2027documented as of this encounter Procedures Procedure NamePriorityDate/TimeAssociated DiagnosisCommentsPOCT URINALYSIS RTTUOPWPIqiwuze44/20/2025 10:04 AM EDT 35 weeks gestation of ([facility]) Third trimester ([facility]) Gestational diabetes mellitus (GDM), antepartum, gestational diabetes method of control unspecified([facility]) documented in this encounter Results * (ABNORMAL) POCT urinalysis dipstick manually resulted (06/28/2025 10:04 AM EDT)ComponentValueRef RangeTest MethodAnalysis TimePerformed AtPathologist SignatureColor, UAAmberClarity, UAClearGlucose, UANegativeNegative - 1999(110) ++++ mg/dLBilirubin, UAPositiveNegative - 4(70) +++ mg/dLComment:1+Ketones, UA PositiveNegative - 160(16) ++++ mg/dLComment:+Spec Grav, UA1.0301 - 1.03Blood, UANegativeNegative - 50 Javi/mcLpH, UA6.05 - 9Protein, UAPositiveNegative - 2000(20) ++++ mg/dLComment:1+Urobilinogen, UA1.00.2 - 12 mg/dLLeukocytes, UA PositiveNegative - 500+++ Tomas/mcLComment:2+Nitrite, UAPositiveNegative - PositiveSpecimen (Source)Anatomical Location / LateralityCollection Method / VolumeCollection TimeReceived IsrjGfmhq66/20/2025 10:04 AM EDT Narrative Authorizing ProviderResult TypeResult StatusCorey Justin [facility]EROINT OF CARE TEST ENTER/EDIT ORDERABLESFinal Result documented in this encounter Visit Diagnoses Diagnosis 35 weeks gestation of ([facility]) Third trimester ([facility]) state, incidental Gestational diabetes mellitus (GDM), antepartum, gestational diabetes method of control unspecified([facility]) Chronic hypertension H/O miscarriage, currently ([facility]) UTI symptoms Palpitations Heartburn during , antepartum ([facility]) documented in this encounter
--- OUTSIDE RECORDS SUMMARY | 2025-07-07 14:20 | XMS_ITS | Encounter Summary ---
Author Organization [facility] Address [address] [place] [address] Care Team Providers Care Welder And Fitter Name Role Phone Unavailable Primary Care Provider Unavailabl e Reason for Visit * ReasonCommentsRoutine Visit Encounter Details DateTypeDepartmentCare Team (Latest Contact Info)Vstxqoclrhw19/29/2025 3:20 PM EDTRoutine [facility] [address] [facility] [phone] Krupa Hernandez PA [address] [facility] [place], [facility] 36 weeks gestation of ([facility]); Third trimester ([facility]) Social History Tobacco UseTypesPacks/DayYears UsedDateSmoking Tobacco: Never Assessed Estimated Date of KslxuvgtMuoufqepMlv49/20/2025ased on UltrasoundSex and Gender InformationValueDate RecordedSex Assigned at NkhqsElzmwx70/21/2025 1:58 PM EST Legal AzmMexktx28/15/2023 6:58 PM EDTGender AlzlsvlnSctjhe84/21/2025 1:58 PM EST Sexual LdgrgkbqhszUnicoblb89/21/2025 1:58 PM ESTdocumented as of this encounter Last Filed Vital Signs Vital SignReadingTime TakenCommentsBlood Sltbfqzt873/9007/07/2025 3:36 PM EDT Pulse--Temperature--Respiratory Rate--Oxygen Saturation--Inhaled Oxygen Concentration--Pqerqt212 kg (275 lb 4 oz)07/07/2025 3:36 PM [...] Assessment/Plan ICD-10-CM 1. 36 weeks gestation of ([facility]) Z3A.36 POCT urinalysis dipstick manually resulted 2. Third trimester ([facility]) Z34.93 CULTURE, GROUP B STREP WITH [...] this encounter Plan of Treatment NameTypePriorityAssociated DiagnosesOrder ScheduleCULTURE, GROUP B STREP WITH SUSCEPTIBLITYLabRoutine Third trimester ([facility]) Expected: 07/07/2025, Expires: 07/07/2026documented as of this encounter Procedures Procedure NamePriorityDate/TimeAssociated DiagnosisCommentsPOCT URINALYSIS FKXNXWORBvusovv85/29/2025 3:48 PM EDT 36 weeks gestation of ([facility]) documented in this encounter Results [...] / LateralityCollection Method / Volume Collection TimeReceived LfzbRxbjn48/29/2025 3:48 PM EDT Narrative Authorizing ProviderResult TypeResult StatusWar[facility] TEST ENTER/EDIT ORDERABLESFinal Result documented in this encounter Visit Diagnoses Diagnosis 36 weeks gestation of ([facility]) Third trimester ([facility]) state, incidental documented in this encounter
[2025-07-11] VITALS (13 sets, daily range): BP systolic 115–155; BP diastolic 62–94; PULSE 80–110; TEMP 36.6–36.7
--- OUTSIDE RECORDS SUMMARY | 2025-07-11 16:51 | XMS_ITS | Encounter Summary ---
Author Organization [facility] Address [address] [place] [address] Care Team Providers Care Ornamental Ironworker Helper Name Role Phone Unavailable Primary Care Provider Unavailabl e Encounter Details DateTypeDepartmentCare Team (Latest Contact Info)Spxnkrrdzfx75/29/2025Bamboo flowsheet [facility] [address] [place] [address] Krupa Hernandez PA [address] [place], [facility] Social History Tobacco UseTypesPacks/DayYears UsedDateSmoking Tobacco: Never Assessed Estimated Date of RmixvfzrLzvzblbqSoc87/20/2025Based on UltrasoundSex and Gender InformationValueDate RecordedSex Assigned at PvcguEcsnqz40/21/2025 1:58 PM EST Legal ItmCdhkqg42/15/2023 6:58 PM EDTGender IrkusgspPzflir12/21/2025 1:58 PM EST Sexual VwkqpczrdclRlgukigt61/21/2025 1:58 PM ESTdocumented as of this encounter Plan of Treatment Not on file documented as of this encounter Visit Diagnoses Not on filedocumented in this encounter
--- OUTSIDE RECORDS SUMMARY | 2025-07-11 16:51 | XMS_ITS | Clinical Summary ---
Author Organization [facility] Healthcare Address [address] [place] [address] Care Team Providers Care Surgical Services Tech Name Role Phone Unavailable Primary Care Provider Unavailabl e Allergies Active AllergyReactionsCriticalityNoted DateCommentsSulfa AntibioticsSwelling High03/30/2016 Other Reaction(s): Swelling of throat Sulfamethoxazole-DbgsuozfiavaKkcqnvr48/11/2024 Medications MedicationSigDispense QuantityRefillsLast FilledStart DateEnd DateStatus venlafaxine XR (Effexor XR) 150 MG 24 hr capsule Take 150 mg by mouth Daily04/14/2024ctive omeprazole (PriLOSEC) [address] capsule PLEASE SEE ATTACHED FOR DETAILED ZPYEGQXMQS73/02/2025Active labetalol (Normodyne) 200 MG tablet Indications:Elevated blood pressure readingTake 1 tablet (200 mg) by mouth in the morning and 1 tablet (200 mg) in the evening and 1 tablet (200 mg) before bedtime. 90 tablet 1104/328248/6Active MV-Min-Fe Fum-FA-DHA ( 1 PO) Take by [...] by mouth every 6 (six) hours if fiomxb65Discontinued phenazopyridine (Pyridium) 100 MG tablet Indications:Urinary tract [...] capsule Expired Active Problems Estimated Date of QduhdzuqTrzosvkcVud13/20/2025Based on Ultrasound No known active problems Encounters DateTypeDepartmentCare MxxpEpjsznqdhih08/29/2025 3:20 PM EDTRoutine [facility] [address] [place] [address] Krupa Olmstead PA 36 weeks gestation of ([facility]); Third trimester ([facility])07/07/2025amboo flowsheet [facility] [address] [place] [address] Krupa Olmstead PA 07/06/2025linisync Result Encounter [facility] External Department Unsolicited Candice Anderson, DO 06/30/2025bstract [facility] [address] [place] [address] [place]ina [place], [place] 06/30/2025Telephone [facility] [address] [place] [address] [place], [place] 06/28/2025 9:40 AM EDTRoutine [facility] [address] [place] [address] Candice Anderson, DO 35 weeks gestation of ([facility]); Third trimester ([facility]); Gestational diabetes mellitus (GDM), antepartum, gestational diabetes method of control unspecified([facility]); Chronic hypertension; H/O miscarriage, currently ([facility]); UTI symptoms; Palpitations; Heartburn during , antepartum ([facility])06/28/2025External Result Encounter [facility] External Department Unsolicited Candice Anderson, DO 06/28/2025amboo flowsheet [facility] [address] [place] [address] Candice Anderson, DO 06/17/2025bstract [facility] [address] [place] [address] Candice Anderson, DO 06/14/2025 11:50 AM EDTRoutine [facility] [address] [place] [address] Suzanne Valdivia NP 33 weeks gestation of ([facility]); Third trimester ([facility]); Gestational diabetes mellitus (GDM), antepartum, gestational diabetes method of control unspecified([facility])06/14/2025linisync Result Encounter [facility] External Department Unsolicited Krupa Olmstead PA 06/14/2025amboo flowsheet [facility] [address] [place] [address] Suzanne Valdivia NP 05/27/2025 8:50 AM EDTRoutine [facility] [address] [place] [address] Krupa Olmstead PA Size of fetus inconsistent with dates, antepartum ([facility]) (Primary Dx); Third trimester ([facility]); 31 weeks gestation of ([facility])05/27/2025amboo flowsheet [facility] [address] [place] [address] Krupa Olmstead PA 05/20/2025bstract [facility] [address] [place] [address] [place] [address] Candice Anderson, 05/13/2025 8:30 AM EDTRoutine [facility] [address] [facility] [place] [address] Candice Anderson, 29 weeks gestation of ([facility]); Third trimester ([facility]); Gestational diabetes mellitus (GDM), antepartum, gestational diabetes method of control unspecified([facility]); Urinary tract infection without hematuria, site fimiulqpyto93/04/2025amboo flowsheet [facility] [address] [place] [address] Candice Anderson, 05/11/2025External Result Encounter [facility] External [...] Department Unsolicited Shaun Rebollar MD 05/04/2025bstract [facility] [address] [place] [address] Candice Anderson, DO 05/04/2025Telephone [facility] [address] [place] [address] Candice Anderson, DO 04/28/2025 1:00 PM EDTRoutine [facility] [address] [place] [address] Krupa Olmstead PA 26 weeks gestation of ([facility]); Second trimester ([facility]); Urinary tract infection with hematuria, site unspecified; Yeast uorudlwyd17/20/2025amboo flowsheet [facility] [address] [place] [address] Krupa Olmstead PA 04/23/2025bstract [facility] [address] [place] [address] Candice Anderson, DO 04/21/20255490Jhtkif81/07/2025linisync Result Encounter NOMS External Department Unsolicited Candice Anderson, DO 04/15/2025linisync Result Encounter NOMS External Department Unsolicited Candice Anderson, DO 04/15/2025linisync Result Encounter NOMS External Department Unsolicited Candice Anderson, DO 04/15/2025Telephone [facility] MESSINA [address] [place] [address] [place] [address] Hina Moura MA from Last 3 Months Social History Tobacco UseTypesPacks/DayYears UsedDateSmoking Tobacco: Never Assessed Estimated Date of BksowupjMjknhussUnl41/20/2025Based on UltrasoundSex and Gender InformationValueDate RecordedSex Assigned at NpnanPpbpze02/21/2025 1:58 PM EST Legal LbkVtmyxz57/15/2023 6:58 PM EDTGender DdsyvzqwGablad96/21/2025 1:58 PM EST Sexual OyhekytiretIbwpmvnn77/21/2025 1:58 PM EST Last Filed Vital Signs Vital SignReadingTime TakenCommentsBlood Qvnsxecc738/9007/07/2025 3:36 PM EDT Pulse--Temperature--Respiratory Rate--Oxygen Saturation--Inhaled Oxygen Concentration--Jtvvch242 kg (275 lb 4 oz)07/07/2025 3:36 PM EDTHeight--Body Mass Index-- Plan of Treatment Health MaintenanceDue DateLast DoneCommentsMMR Vaccines (1 of 1 - Standard series)1988DTaP/Tdap/Td Vaccines (1 - Tdap)1994Varicella Vaccines (1 of 2 - 13+ 2-dose series)2000Hepatitis B Vaccines (1 of 3 - 19+ 3-dose series)2006HPV Vaccines (1 - 3-dose SCDM series)2014HPV/Cotest 2017COVID-19 Vaccine (2 - season)/10/2020Influenza Vaccine (#1)/03/2022, 05/23/2021ervical Cancer Fklflhych96/03/2028 Pap SmearHIB VaccinesAged OutNo longer eligible based [...] this topic Procedures Procedure NamePriorityDate/TimeAssociated DiagnosisCommentsPOCT URINALYSIS CUHTDVRCDegjyul98/29/2025 3:48 PM EDT 36 weeks gestation of ([facility]) US OB BPP W NON-QWOOFC3807/06/2025 9:55 AM EDT URINARY TRACT INFECTION (HTRX)Xbcncdg5206/28/2025 11:26 AM EDT POCT URINALYSIS FPWMTLFEGzbeurv13/20/2025 10:04 AM EDT 35 weeks gestation of ([facility]) Third trimester ([facility]) Gestational diabetes mellitus (GDM), antepartum, gestational diabetes method of control unspecified([facility]) US OB VRRWFP8406/14/2025 12:01 PM EDT POCT URINALYSIS ZLBCYGNOGjcoofe60/06/2025 11:49 AM EDT 33 weeks gestation of ([facility]) Third trimester ([facility]) POCT URINALYSIS DMPVRSYOArqhwqd30/18/2025 8:58 AM EDT Third trimester ([facility]) POCT URINALYSIS KZBQNXAPGfigswa26/04/2025 8:42 AM EDT 29 weeks gestation of ([facility]) Third trimester ([facility]) US RENAL EDFPTJEF56/02/2025 12:52 PM EDT TOMIWHQSPW21/01/2025 11:10 PM EDT IGUOWVJRWVR19/01/2025 11:10 PM EDT COMPREHENSIVE METABOLIC MILRPFQGX88/01/2025 11:10 PM EDT CBC WITH AUTO TESVKMWLSMCYIPLG11/01/2025 11:10 PM EDT RGRNKVSAJBMSZMS43/01/2025 11:05 PM EDT AEROBIC DAVE CHARGE (NMIC56)STAT05/10/2025 10:30 PM EDT URINALYSIS NPOCJJFYLP65/01/2025 10:30 PM EDT CULTURE, URINE, JVYVGUJLZXO77/01/2025 10:30 PM EDT URINARY TRACT INFECTION (HTRX)Tmrivke2304/28/2025 1:20 PM EDT POCT URINALYSIS HIVHZRXKOctrvqq64/20/2025 1:15 PM EDT 26 weeks gestation of ([facility]) Second trimester ([facility]) US OB KIDHEYBC42/07/2025 4:27 PM EDT US OB CERVICAL WBYRLH9304/15/2025 4:27 PM EDT [facility] URINE MICROSCOPIC JDTYUvknhru70/07/2025 2:55 PM EDT [facility] UA (CLEAN/CATCH) TOLL TICKET CLERK/MICRO IF IND.Qaxusne4504/15/2025 2:55 PM EDT PAP SQLKUEhmewlr02/03/2025 12:00 AM EDTfrom Last 3 Months or [...] Location / LateralityCollection Method / VolumeCollection TimeReceived TimeSummit Oaks Hospital 07/07/2025 3:48 PM EDT Narrative Authorizing ProviderResult TypeResult StatusB[facility] TEST ENTER/EDIT ORDERABLESFinal Result * US OB BPP W NON-STRESS (07/06/2025 9:55 AM EDT)Anatomical Region LateralityModalityOtherSpecimen (Source)Anatomical Location / Laterality Collection Method / VolumeCollection TimeReceived Time07/06/2025 9:55 AM EDT Narrative 07/06/2025 9:57 AM EDT [facility] ?[address] ? [place] [address] ? Ultrasound Report ? Signed ? Patient: NATALIE CESPEDES ?MR#: [id number] ?? : 1985 ?Acct:[id number] ?? Age/Sex: 40 / F ?ADM Date: 07/06/25 ?? Loc: [facility] ??250-1 ? Attending Dr: Candice Anderson D.O. ? Ordering Physician: Candice Anderson D.O. ?? Date of Service: 07/06/25 ?? Procedure(s): US OB BPP w non-stress ?? Accession Number(s): [id number] ? cc: Candice Anderson D.O.; Lynn Jose D.O. ? [facility] ? [address] ? [place] [address] ? Patient Name: ?? NATALIE CESPEDES ? MRN: [facility]:[id number] ? date: 1985 ?Sex: F ?? Assigned Patient Location: [facility] ?? Current Patient Location: [facility] ?? Accession/Order Number: [id number] ?? Exam Date: 07/06/2025 ??09:32 ?Report Date: [...] Dictation Location: RADIO-PC-02 ? Electronically authenticated by: [id number] ??Y ?? Date: 07/06/2025 ??09:55 ? Dictated By: ?Joan Womack M.D. ? Signed By: ?07/06/25 0957 ? DD/ 0955 ? TD/TT: ? Melter Caster: Procedure Note Radiology, Radiologist, MD - 07/06/2025 [place] [address] Ultrasound Report Signed Patient: NATALIE CESPEDES [facility]#: [id number] : 1985Acct:[id number] Age/Sex: 40 / FADM Date: 07/06/25 Loc: [facility] 250-[address]: Candice Anderson D.O. Ordering Physician: Candice Anderson D.O. Date of Service: 07/06/25 Procedure(s): US OB BPP w non-stress Accession Number(s): [id number] cc: Candice Anderson D.O.; Lynn Jose D.O. [place] [id number] Patient Name: NATALIE CESPEDES MRN: [facility]:[id number] date: 1985 Sex: F Assigned Patient Location: [facility] Current Patient Location: [facility] Accession/Order Number: [id number] Exam Date: 07/06/2025 09:32 Report Date: 07/06/2025 [...] Womack M.D. 07/06/2025 9:55 AM Dictation Location: [place] [address] Electronically authenticated by: [id number] Y Date: 509:55 Dictated By: Joan Womack M.D. Signed By:07/06/25956 DD/ 4 TD/TT: Melter Caster: Authorizing ProviderResult TypeResult StatusCorey Justin DOCLINISYNC IMAGINGFinal Result * (ABNORMAL) URINARY TRACT INFECTION (HTRX) (06/28/2025 11:26 AM EDT) Only the most recent of2 resultswithin the time period is included. ComponentValueRef RangeTest MethodAnalysis TimePerformed AtPathologist Signature ACINETOBACTER LDTXCWCW415.961 - 24.689 ppm06/29/2025 7:56 AM EDTHealthTrackRx at LabPortACINETOBACTER BAUMANIINot Atphildb31.961 - 24.689 ppm06/29/2025 7:56 AM EDTHealthTrackRx at LabPortCITROBACTER BEFAIQDL470.000 - 32.015 ppm06/29/2025 7:56 AM EDTHealthTrackRx at LabPortCITROBACTER FREUNDIINot Ctrctreg37.000 - 32.015 ppm06/29/2025 7:56 AM EDTHealthTrackRx at LabPortENTEROBACTER AEROGENES, UPGBHGJ098.000 - 32.290 ppm06/29/2025 7:56 AM EDTHealthTrackRx at LabPort ENTEROBACTER AEROGENES, CLOACAENot Ayufwedr19.000 - 32.290 ppm06/29/2025 7:56 AM EDTHealthTrackRx at LabPortENTEROCOCCUS FAECALIS, RFTOHNM314.000 - 33.043 ppm 06/29/2025 7:56 AM EDTHealthTrackRx at LabPortENTEROCOCCUS FAECALIS, FAECIUMNot Waeeheir14.000 - 33.043 ppm06/29/2025 7:56 AM EDTHealthTrackRx at LabPort ESCHERICHIA COLI20.735(A)23.000 - 28.500 ppm06/29/2025 7:56 AM EDTHealthTrackRx at LabPortESCHERICHIA COLIDetected(A)23.000 - 28.500 ppm06/29/2025 7:56 AM EDT [facility]Track[facility] at LabPortKLEBSIELLA PNEUMONIAE, PUNQUHZ786.000 - 31.865 ppm 06/29/2025 7:56 AM EDTHealthTrackRx at LabPortKLEBSIELLA PNEUMONIAE, OXYTOCANot Jfelnwqb14.000 - 31.865 ppm06/29/2025 7:56 AM EDTHealthTrackRx at LabPort MORGANELLA ELZIXDKV133.961 - 24.689 ppm06/29/2025 7:56 AM EDTHealthTrackRx at LabPortMORGANELLA MORGANIINot Dkbmntyz62.961 - 24.689 ppm06/29/2025 7:56 AM EDT [facility] at LabPortPROTEUS MIRABILIS, ZTSDMPPW266.000 - 28.500 ppm 06/29/2025 7:56 AM EDTHealthTrackRx at LabPortPROTEUS MIRABILIS, VULGARISNot Snotbmcv75.000 - 28.500 ppm06/29/2025 7:56 AM EDTHealthTrackRx at [facility]Port PSEUDOMONAS LNGLTLTXJN144.000 - 31.801 ppm06/29/2025 7:56 AM EDTHealthTrackRx at LabPortPSEUDOMONAS AERUGINOSANot Rlcxudag29.000 - 31.801 ppm06/29/2025 7:56 AM EDTHealthTrackRx at LabPortSTAPHYLOCOCCUS LBBHMW546.000 - 31.595 ppm06/29/2025 7:56 AM EDTHealthTrackRx at LabPortSTAPHYLOCOCCUS AUREUSNot Qigmynzv96.000 - 31.595 ppm06/29/2025 7:56 AM EDTHealthTrackRx at LabPortSTREPTOCOCCUS AGALACTIAE (GROUP B STREP)026.000 - 32.435 ppm06/29/2025 7:56 AM EDTHealthTrackRx at LabPortSTREPTOCOCCUS AGALACTIAE (GROUP B STREP)Not Ymvtyvyc71.000 - 32.435 ppm 06/29/2025 7:56 AM EDTHealthTrackRx at LabPortCANDIDA ALBICANS, PARAPSILOSIS, PKQJTYBRKF372.000 - 30.347 ppm06/29/2025 7:56 AM EDTHealthTrackRx at [facility] RINA ALBICANS, PARAPSILOSIS, TROPICALISNot Seqmcgrm04.000 - 30.347 ppm 06/29/2025 7:56 AM EDTHealthTrackRx at LabPortCANDIDA CEZRVBUQ621.000 - 31.618 ppm06/29/2025 7:56 AM EDTHealthTrackRx at LabPortCANDIDA GLABRATANot Detected 23.000 - 31.618 ppm06/29/2025 7:56 AM EDTHealthTrackRx at LabPortCANDIDA KRUSEI0 23.000 - 30.873 ppm06/29/2025 7:56 AM EDTHealthTrackRx at LabPortCANDIDA KRUSEI Not Quaqqobv97.000 - 30.873 ppm06/29/2025 7:56 AM EDTHealthTrackRx at [facility] SERRATIA ADIIXZFEJP759.000 - 31.581 ppm06/29/2025 7:56 AM EDTHealthTrackRx at [facility] CenterSERRATIA MARCESCENSNot Knegpiyh88.000 - 31.581 ppm06/29/2025 7:56 AM EDT [facility] at [facility] CenterSTREPTOCOCCUS PYOGENES (GROUP A STREP)019.961 - 24.689 ppm06/29/2025 7:56 AM EDTHealthTrackRx at [facility] CenterSTREPTOCOCCUS PYOGENES (GROUP A STREP)Not Jsccuazm74.961 - 24.689 ppm06/29/2025 7:56 AM EDTHealthTrackRx at [facility] CenterSTAPHYLOCOCCUS EPIDERMIDIS, HAEMOLYTICUS, LUGDUNENSIS, SAPROPHYTICUS (DHIVK302.961 - 24.689 ppm06/29/2025 7:56 AM EDTHealthTrackRx at [facility] STAPHYLOCOCCUS EPIDERMIDIS, HAEMOLYTICUS, LUGDUNENSIS, SAPROPHYTICUS (URINANot Hyoitfmk44.961 - 24.689 ppm06/29/2025 7:56 AM EDTHealthTrackRx at [facility] STAPHYLOCOCCUS EPIDERMIDIS, HAEMOLYTICUS, LUGDUNENSIS, SAPROPHYTICUS (URINA0 19.961 - 24.689 ppm06/29/2025 7:56 AM EDTHealthTrackRx at [facility] CenterSTAPHYLOCOCCUS EPIDERMIDIS, HAEMOLYTICUS, LUGDUNENSIS, SAPROPHYTICUS (URINANot Wuompyer09.961 - 24.689 ppm06/29/2025 7:56 AM EDTHealthTrackRx at [facility] CenterTET B, TET M26.455(A) 23.000 - 27.500 ppm06/29/2025 7:56 AM EDTHealthTrackRx at [facility] CenterTET B, TET M Detected(A)23.000 - 27.500 ppm06/29/2025 7:56 AM EDTHealthTrackRx at [facility] Specimen (Source)Anatomical Location / LateralityCollection Method / Volume Collection TimeReceived UrqwKimok63/20/2025 11:26 AM EDT1 1:41 AM EDT Narrative Authorizing ProviderResult TypeResult StatusCorey Justin DOLAB BLOOD ORDERABLES Final ResultPerforming OrganizationAddressCity/State/ZIP CodePhone Number [facility] [address] [place] [address] * US OB GROWTH (06/14/2025 12:01 PM EDT)Anatomical RegionLateralityModalityOther Specimen (Source)Anatomical Location / LateralityCollection Method / Volume Collection TimeReceived Time06/14/2025 12:01 PM EDT Narrative 06/14/2025 12:04 PM EDT [facility] ?[address] ? [place], [facility] ? Ultrasound Report ? Signed ? Patient: NATALIE CESPEDES S ?MR#: [id number] ?? : 1985 ?Acct:[id number] ?? Age/Sex: 40 / F ?ADM Date: 06/14/25 ?? Loc: US ? Attending Dr: Krupa Olmstead ? Ordering Physician: Krupa Olmstead ?? Date of Service: 06/14/25 ?? Procedure(s): US OB growth ?? Accession Number(s): [id number] ? cc: Krupa Olmstead; Lynn Jose D.O. ? [facility] ? [address] ? [place] [address] ? Patient Name: ?? NATALIE CESPEDES ? MRN: [facility]:[id number] ? date: 1985 ?Sex: F ?? Assigned Patient Location: US ?? Current Patient Location: US ?? Accession/Order Number: [id number] ?? Exam Date: 06/14/2025 ??10:58 ?Report Date: [...] D.O. ??06/14/2025 12:01 PM ? Dictation Location: [facility]22 ? Electronically authenticated by: [id number] ??Y ?? Date: 06/14/2025 ??12:01 ? Dictated By: ?Jacob Almanza M.D. ? Signed By: ?06/14/25 1204 ? DD/ 1201 ? TD/TT: ? Melter Caster: Procedure Note Radiology, Radiologist, - 06/14/2025 [place] [address] Ultrasound Report Signed Patient: NATALIE CESPEDES SMR#: [id number] : 1985Acct:[id number] Age/Sex: 40 / FADM Date: 06/14/25 Loc: US Attending Dr: Krupa Olmstead Ordering Physician: Krupa Olmstead Date of Service: 06/14/25 Procedure(s): US OB growth Accession Number(s): [id number] cc: Krupa Olmstead; Lynn Jose D.O. The [address] [address] Patient Name: NATALIE CESPEDES MRN: [facility]:[id number] date: 1985 Sex: F Assigned Patient Location: US Current Patient Location: US Accession/Order Number: [id number] Exam Date: 06/14/2025 10:58 Report Date: 06/14/2025 [...] Ovalles Jr.ODamion 06/14/2025 12:01 PM Dictation Location: Backspaces Electronically authenticated by: [id number] Y Date: :01 Dictated By: Jacob Almanza M.D. Signed By:06/14/25 1204 DD/ 1201 TD/TT: Melter Caster: Authorizing ProviderResult TypeResult StatusAmy Ishan PACLMOBILE INFIRMARY MEDICAL CENTERYN IMAGINGFinal Result * US renal complete (05/11/2025 [...] 05/11/25 1252 Narrative 05/11/2025 12:55 PM EDT [facility] ?[facility] [place] [facility] ?[address] ? [place] [address] ? Ultrasound Report ? Signed ? Patient: Rubina,Natalie S ?MR#: [id number] ?? [id number] ? : 1985 ?Acct:[id number] ? Age/Sex: 40 / F ?ADM Date: 05/10/25 ? Loc: 3E ?Room: ??0O9269-1 ?Type: REG CLI ?? Attending Dr: Shaun [...] Procedure Note Deshaun Alanis MD - 05/11/2025 [facility] Main [place] [id number] Ultrasound Report Signed Patient: Natalie Cespedes [facility]#: [id number] : 1985Acct:[id number] Age/Sex: 40 / FADM Date: 05/10/25 Loc: Room: 7J3631-9Omkj: REG CLI Attending Dr: Shaun Rebollar MD [...] Alanis M.D. 05/11/2025 12:52 PM Dictation Location: [place] [address] Tech: Chantell Blake Transcribed By: [facility] 05/11/25 1252 Dictated By: Deshaun Alanis II, MD 05/11/25 1252 Signed By: <Electronically signed by Deshaun Alanis II, MD inOV> 05/11/25 1252 Authorizing ProviderResult TypeResult StatusShaun Rebollar MDIMG US PROCEDURES Final Result * (ABNORMAL) CBC auto differential (05/10/2025 11:10 PM EDT)ComponentValueRef RangeTest MethodAnalysis TimePerformed AtPathologist VrhfnkfbrVWJ38.3(H)3.8 - 11.6 [CFU]/mL05/10/2025 11:25 PM [facility] CtrUNCORRECTED WHITE BLOOD COUNT19.3(H)3.8 - 11.6 10*3/uL05/10/2025 11:25 PM [facility] CtrRBC4.053.60 - 5.00 10*6/uL05/10/2025 11:25 PM [facility] TziBSOMLZUTAY99.3(L)11.8 - 15.4 g/dL05/10/2025 11:25 PM [facility] TxuKQTFJETFCF41.0(L)34.0 - 46.4 %05/10/2025 11:25 PM [facility] ArtXHJ45.480 - 100 fL05/10/2025 11:25 PM [facility] PjvQNF21.924.7 - 34.3 pg05/10/2025 11:25 PM [facility] LrlRRGA08.232.0 - 35.0 g/dL05/10/2025 11:25 PM [facility] CtrRED CELL DISTRIBUTION WIDTH, RDW14.611.9 - 15.3 %05/10/2025 11:25 PM [facility] CtrPLATELET ZUVFV870792 - 450 10*3/uL05/10/2025 11:25 PM [facility] CtrMEAN PLATELET VOLUME, MPV7.36.3 - 10.7 fL05/10/2025 11:25 PM [facility] CtrNEUTROPHILS, %91.2. %05/10/2025 11:25 PM [facility] LYMPHOCYTES, %4.8. %05/10/2025 11:25 PM [facility] MONOCYTE/MACROPHAGE, %3.2. %05/10/2025 11:25 PM [facility] CtrEOSINOPHILS, %0.4. %05/10/2025 11:25 PM [facility] BASOPHILS, %0.4. %05/10/2025 11:25 PM [facility] CtrNRBC0.1 0 - 0.5 /100{WBC}05/10/2025 11:25 PM [facility] PIMNEDWUSCM50.6(H)1.8 - 7.7 10*3/uL05/10/2025 11:25 PM [facility] CtrLYMPHOCYTES0.9(L)1.00 - 4.8 10*3/uL5 11:25 PM [facility] CtrMONOCYTES0.60.0 - 0.8 10*305/10/2025 11:25 PM EDT [facility] CtrEOSINOPHILS0.10.0 - 0.45 10*305/10/2025 11:25 PM [facility]DS[facility] CtrBASOPHILS0.10.0 - 0.2 10*305/10/2025 11:25 PM [facility] CtrSpecimen (Source)Anatomical Location / LateralityCollection Method / VolumeCollection TimeReceived TimeBlood (Blood)05/10/2025 11:10 PM EDT05/10/2025 11:18 PM EDT Narrative Authorizing ProviderResult TypeResult StatusShaun MONTILLA BLOOD ORDERABLESFinal ResultPerforming OrganizationAddressCity/State/ZIP CodePhone Number [address] [address], [facility] [address] [place] [address] * Lipase (05/10/2025 11:10 PM EDT)ComponentValueRef RangeTest MethodAnalysis TimePerformed AtPathologist [id number] - 82.0 U/L05/10/2025 11:45 PM EDSum[facility] CtrSpecimen (Source)Anatomical Location / LateralityCollection Method / VolumeCollection TimeReceived TimeOther Topography unknown / Pcsyppz7105/10/2025 11:10 PM EDT05/10/2025 11:18 PM EDT Narrative Authorizing ProviderResult TypeResult StatusShaun MONTILLA BLOOD ORDERABLESFinal ResultPerforming OrganizationAddressCity/State/ZIP CodePhone Number [facility] [address] [place] [address], [facility] [address] [place] [address] * Amylase (05/10/2025 11:10 PM EDT)ComponentValueRef RangeTest MethodAnalysis TimePerformed AtPathologist [id number] - 103 U/L05/10/2025 11:45 PM EDSum[facility] CtrSpecimen (Source)Anatomical Location / LateralityCollection Method / VolumeCollection TimeReceived TimeOther Topography unknown / Ytxenmt5405/10/2025 11:10 PM EDT05/10/2025 11:18 PM EDT Narrative Authorizing ProviderResult TypeResult StatusShaun Rebollar MDLAB BLOOD ORDERABLESFinal ResultPerforming OrganizationAddressCity/State/ZIP CodePhone Number [facility] [address] [place] [address], [facility] [address] [place] [address] * (ABNORMAL) Comprehensive metabolic panel (05/10/2025 11:10 PM EDT)Component ValueRef RangeTest MethodAnalysis TimePerformed AtPathologist SignatureGlucose 111(H)70 - 100 mg/dL05/10/2025 11:45 PM [facility] Comment: Random Glucose Reference Range is dependent on time and content of last meal. Glucose of more than 200 mg/dL in a nonstressed, ambulatory subject supports the diagnosis of Diabetes Mellitus. ADA recommended reference range QLT368 - 25 mg/dL05/10/2025 11:45 PM [facility] CtrCREATININE 0.680.60 - 1.20 mg/dL05/10/2025 11:45 PM [facility] ESTIMATED GFR>60. 11:45 PM [facility] IviBagsle161 136 - 145 mmol/L05/10/2025 11:45 PM [facility] CtrPotassium, Bld3.93.5 - 5.1 mmol/L05/10/2025 11:45 PM [facility] Kygdcwux65480 - 107 mmol/L05/10/2025 11:45 PM [facility] Carbon Bpwaeid86.3(L)21.0 - 31.0 mmol/L05/10/2025 11:45 PM [facility] CtrAnion Gap14.66.0 - 15.009 11:45 PM [facility] CtrCalcium9.18.6 - 10.3 mg/dL05/10/2025 11:45 PM [facility] CtrTOTAL PROTEIN6.3(L)6.4 - 8.9 g/dL05/10/2025 11:45 PM [facility] CtrALBUMIN LEVEL3.63.5 - 5.7 g/dL05/10/2025 11:45 PM EDT [facility] CtrGLOBULIN2.7g/dL05/10/2025 11:45 PM [facility] CtrALBUMIN/GLOBULIN RATIO1.309 11:45 PM [facility] CtrBILIRUBIN,TOTAL0.40.3 - 1.0 mg/dL05/10/2025 11:45 PM EDT [facility] CtrASPARTATE AMINO LVSQDOEZYGC4562 - 39 U/L05/10/2025 11:45 PM [facility] CtrALANINE CWGPEFSROPJZSIPD406 - 52 U/L 05/10/2025 11:45 PM [facility] CtrALKALINE WLKFRXEMNLN0619 - 104 U/L05/10/2025 11:45 PM [facility] CtrCREATININE CLR CALC ISMWGRXN780.8705/10/2025 11:45 PM [facility] CtrSpecimen (Source)Anatomical Location / LateralityCollection Method / VolumeCollection TimeReceived TimeOtherTopography unknown / Lphgicy0605/10/2025 11:10 PM EDT 05/10/2025 11:18 PM EDT Narrative Authorizing ProviderResult TypeResult StatusShaun Rebollar MDLAB BLOOD ORDERABLESFinal ResultPerforming OrganizationAddressCity/State/[facility] [[email or web address]] CodePhone Number [facility] [address] [place] [address], [facility] [address] [place] [address] * fibronectin (05/10/2025 11:05 PM EDT)ComponentValueRef RangeTest Method Analysis TimePerformed AtPathologist SignatureFETAL FIBRONECTINNegative Zajkuuxm21/02/2025 12:02 AM [facility] CtrSpecimen (Source) Anatomical Location / LateralityCollection Method / VolumeCollection Time Received TimeOtherTopography unknown / Behybex9305/10/2025 11:05 PM EDT 05/10/2025 11:19 PM EDT Narrative [facility] - 05/11/2025 12:02 AM EDT Comment patients 22 - 34 6/7 weeks prior to vaginal exam Authorizing ProviderResult TypeResult StatusShaun Rebollar MDLAB BODY FLUIDS AND STOOLS ORDERABLESFinal ResultPerforming OrganizationAddressCity/State/ZIP Code Phone Number [facility] [address] [place] [address], [facility] [address] [place] [address] * (ABNORMAL) AEROBIC DAVE CHARGE (NMIC56) (05/10/2025 10:30 PM EDT)ComponentValue Ref RangeTest MethodAnalysis TimePerformed AtPathologist SignatureAMIKACIN<16 (S)05/13/2025 7:51 AM [facility] CtrAMOXACILLIN/K CLAVULANATE<8/4(S)05/13/2025 7:51 AM [facility] AMPICILLIN>16(R)05/13/2025 7:51 AM [facility] AMPICILLIN/ZCIVGUIJQ60/8(I)05/13/2025 7:51 AM [facility] CtrAZTREONAM<4(S)05/13/2025 7:51 AM [facility] CtrCEFAZOLIN <2(S)05/13/2025 7:51 AM [facility] CtrCEFEPIME<2(S) 05/13/2025 7:51 AM [facility] CtrCEFTAZIDIME<1(S)05/13/2025 7:51 AM [facility] CtrCEFTAZIDIME/AVIBACTAM<4(S)05/13/2025 7:51 AM [facility] CtrCEFTOLOZANE/TAZOBACTAM<2(S) 05/13/2025 7:51 AM [facility] CtrCEFTRIAXONE<1(S)05/13/2025 7:51 AM [facility] CtrCEFUROXIME<4(S)05/13/2025 7:51 AM [facility] CtrCIPROFLOXACIN<0.25(S)05/13/2025 7:51 AM [facility] CtrERTAPENEM<0.5(S)05/13/2025 7:51 AM [facility] CtrGENTAMICIN<2(S)05/13/2025 7:51 AM [facility] CtrLEVOFLOXACIN<0.5(S)05/13/2025 7:51 AM [facility] CtrMEROPENEM<1(S)05/13/2025 7:51 AM [facility] MEROPENEM/VABORBACTAM<2(S)05/13/2025 7:51 AM [facility] NITROFURANTOIN<32(S)05/13/2025 7:51 AM [facility] PIPERACILLIN/TAZOBACTAM<8(S)05/13/2025 7:51 AM [facility] CtrTETRACYCLINE<4(S)05/13/2025 7:51 AM [facility] TIGECYCLINE<2(S)05/13/2025 7:51 AM [facility] CtrTOBRAMYCIN <2(S)05/13/2025 7:51 AM [facility] TRIMETHOPRIM/SULFAMETHOXAZOLE<0.5/9.5(S)05/13/2025 7:51 AM [facility] CtrSpecimen (Source)Anatomical Location / Laterality Collection Method / VolumeCollection TimeReceived TimeUrineUrine specimen obtained by clean catch procedure / Ydxvrfc3805/10/2025 10:30 PM EDT05/10/2025 10:55 PM EDTComment:Clean-Voided Midstream Narrative Authorizing ProviderResult TypeResult StatusShaun Rebollar MDFIRELANDSFinal ResultPerforming OrganizationAddressCity/State/ZIP CodePhone Number [facility] [address] [place] [address], [facility] [address] [place] [address] * (ABNORMAL) Urinalysis with reflex microscopic (05/10/2025 10:30 PM EDT) ComponentValueRef RangeTest MethodAnalysis TimePerformed AtPathologist SignatureCOLOR,XIPDLYijakoGrugab31/01/2025 10:59 PM [facility] CtrAPPEARANCE,URINETurbid(AA)Clear05/10/2025 10:59 PM [facility] CtrSPECIFICY GRAVITY,URINE1.0221.001 - 1.689245 10:59 PM [facility] CtrPH,URINE5.55.0 - 9.009 10:59 PM [facility] CtrLEUKOCYTE ESTERASE,URINE4+Sffgqsiw95/01/2025 10:59 PM [facility] CtrNITRITE,URINENegativeNegative 05/10/2025 10:59 PM [facility] CtrPROTEIN,BTPXM802Wtrsvtnw mg/dL05/10/2025 10:59 PM [facility] CtrGLUCOSE,URINE (UA) NormalNormal mg/dL05/10/2025 10:59 PM [facility] KETONES,URINE2+Wjljlsxo74/01/2025 10:59 PM [facility] UROBILINOGEN,URINENormalNormal mg/dL05/10/2025 10:59 PM [facility] CtrBILIRUBIN,UIWPBThhxtinlYviqwcme92/01/2025 10:59 PM [facility] CtrOCCULT BLOOD,URINE2+Xdfxoqbf35/01/2025 10:59 PM [facility] CtrRBC,CWDGV41-302 - 4 [HPF]05/10/2025 11:13 PM [facility] CtrWBC,URINEInnumerable0 - 4 [HPF]05/10/2025 11:13 PM [facility] CtrWBC CLUMP, URINEManyNone Seen [LPF] 05/10/2025 11:13 PM [facility] CtrSQUAMOUS EPITHELIAL CELL,URINE1-20 - 2 [HPF]05/10/2025 11:13 PM [facility] BACTERIA,URINE2+None Seen [HPF]05/10/2025 11:13 PM [facility] CtrHYALINE CASTS,URINENone0 - 8 [LPF]05/10/2025 11:13 PM [facility] CtrMUCUS,URINE4+(AA)[LPF]05/10/2025 11:13 PM [facility] CtrSpecimen (Source)Anatomical Location / Laterality Collection Method / VolumeCollection TimeReceived HlmzCqbnj08/01/2025 10:30 PM EDT05/10/2025 10:55 PM EDT Narrative [facility] - 05/10/2025 11:13 PM EDT Comment c/o urinary symptoms or increased blood pressure Name Collection Type:: Clean-Voided Midstream Authorizing ProviderResult TypeResult StatusShaun MONTILLA URINE ORDERABLESFinal ResultPerforming OrganizationAddressCity/[facility] CenterPhone Number [facility] [address] [place] [address], [facility] [address] [place] [address] * Urine culture (05/10/2025 10:30 PM EDT)ComponentValueRef RangeTest Method Analysis TimePerformed AtPathologist SignatureFRMC ORGANISMEscherichia coli 05/13/2025 7:51 AM [facility] CtrCOLONY COUNT>100,000 05/13/2025 7:51 AM [facility] CtrSpecimen (Source) Anatomical Location / LateralityCollection Method / VolumeCollection Time Received TimeUrineUrine specimen obtained by clean catch procedure / Unknown 05/10/2025 10:30 PM EDT05/10/2025 10:55 PM EDTComment:Clean-Voided Midstream Narrative Authorizing ProviderResult TypeResult Jeff MONTILLA MICROBIOLOGY - GENERAL ORDERABLESFinal ResultPerforming OrganizationAddressCity/State/ZIP Code Phone Number [facility] [address] [place] [address], [facility] [address] [place] [address] * US OB PLACENTA (04/15/2025 4:27 PM EDT)Anatomical RegionLateralityModality OtherSpecimen (Source)Anatomical Location / LateralityCollection Method / VolumeCollection TimeReceived Time04/15/2025 4:27 PM EDT Narrative 04/15/2025 4:30 PM EDT [facility] ?[address] ? [place] [address] ? Ultrasound Report ? Signed ? Patient: NATALIE CESPEDES ?MR#: [id number] ?? : 1985 ?Acct:[id number] ?? Age/Sex: 40 / F ?ADM Date: ?? Loc: [facility] ??250-1 ? Attending Dr: Candice Anderson D.O. ? Ordering Physician: Candice Anderson D.O. ?? Date of Service: 04/15/25 ?? Procedure(s): US OB placenta ?? Accession Number(s): [id number] ? cc: Candice Anderson D.O.; Lynn Jose D.O. ? [facility] ? [address] ? [place] [address] ? Patient Name: ?? NATALIE CESPEDES ? MRN: [facility]:[id number] ? date: 1985 ?Sex: F ?? Assigned Patient Location: [facility] ?? Current Patient Location: ? Accession/Order Number: [id number] ?? Exam Date: 04/15/2025 ??16:26 ?Report Date: [...] D.ODamion ??04/15/2025 4:27 PM ? Dictation Location: [facility]-- ? Electronically authenticated by: [id number] ??Y ?? Date: 04/15/2025 ??16:27 ? Dictated By: ?Jacob Almanza M.D. ? Signed By: ?04/15/25 1630 ? DD/ 1627 ? TD/TT: ? Melter Caster: Procedure Note Radiology, Radiologist, MD - 04/16/2025 [place] [address] Ultrasound Report Signed Patient: NATALIE CESPEDES [facility]#: [id number] : 1985Acct:[id number] Age/Sex: 40 / FADM Date: Loc: [facility] 250- Attending Dr: Candice Anderson D.O. Ordering Physician: Candice Anderson D.O. Date of Service: 04/15/25 Procedure(s): US OB placenta Accession Number(s): [id number] cc: Candice Anderson D.O.; Lynn Jose D.O. The [place] [id number] Patient Name: NATALIE CESPEDES MRN: [id number] date: 1985 Sex: F Assigned Patient Location: [facility] Current Patient Location: Accession/Order Number: [id number] Exam Date: 04/15/2025 16:26 Report Date: 04/15/2025 [...] Jr., D.O. 04/15/2025 4:27 PM Dictation Location: [place] [address] Electronically authenticated by: [id number] Y Date: 6:27 Dictated By: Jacob Almanza M.D. Signed By:04/15/25 1630 DD/ 1627 TD/TT: Melter Caster: Authorizing ProviderResult TypeResult StatusCorey Justin DOCLINISYNC IMAGINGFinal Result * US OB CERVICAL LENGTH (04/15/2025 4:27 PM EDT)Anatomical RegionLaterality ModalityOtherSpecimen (Source)Anatomical Location / LateralityCollection Method / VolumeCollection TimeReceived Time04/15/2025 4:27 PM EDT Narrative 04/15/2025 4:30 PM EDT [facility] ?[address] ? [place] [address] ? Ultrasound Report ? Signed ? Patient: RUBINA,NATALIE S ?MR#: [id number] ?? : 1985 ?Acct:[id number] ?? Age/Sex: 40 / F ?ADM Date: ?? Loc: [facility] ??250-1 ? Attending Dr: Candice Anderson D.O. ? Ordering Physician: Candice Anderson D.O. ?? Date of Service: 04/15/25 ?? Procedure(s): US OB cervical length ?? Accession Number(s): [id number] ? cc: Candice Anderson D.O.; Lynn Jose D.O. ? [facility] ? [address] ? [place] [address] ? Patient Name: ?? NATALIE CESPEDES ? MRN: [facility]:[id number] ? date: 1985 ?Sex: F ?? Assigned Patient Location: [facility] ?? Current Patient Location: ? Accession/Order Number: [id number] ?? Exam Date: 04/15/2025 ??16:26 ?Report Date: [...] Jr..Marilee ??04/15/2025 4:27 PM ? Dictation Location: [facility]-- ? Electronically authenticated by: [id number] ??Y ?? Date: 04/15/2025 ??16:27 ? Dictated By: ?Jacob Almanza M.D. ? Signed By: ?04/15/25 1630 ? DD/ 1627 ? TD/TT: ? Melter Caster: Procedure Note Radiology, Radiologist, - 04/16/[address] [address] Ultrasound Report Signed Patient: RUBINAZOILA QUINNHER [facility]#: [id number] : 1985Acct:[id number] Age/Sex: 40 / FADM Date: Loc: [facility] 250-[address]: Candice Anderson D.O. Ordering Physician: Candice Anderson D.O. Date of Service: 04/15/25 Procedure(s): US OB cervical length Accession Number(s): [id number] cc: Candice Anderson D.O.; Lynn Jose D.O. [place] [address] Patient Name: NATALIE CESPEDES MRN: [facility]:[id number] date: 1985 Sex: F Assigned Patient Location: [facility] Current Patient Location: Accession/Order Number: [id number] Exam Date: 04/15/2025 16:26 Report Date: 04/15/2025 [...] Jr., D.O. 04/15/2025 4:27 PM Dictation Location: [place] [address] Electronically authenticated by: [id number] Y Date: 6:27 Dictated By: Jacob Almanza M.D. Signed By:04/15/25 1630 DD/ 1627 TD/TT: Melter Caster: Authorizing ProviderResult TypeResult StatusCorey Justin DOCLINISYNC IMAGINGFinal Result * (ABNORMAL) [facility] URINE MICROSCOPIC ONLY (04/15/2025 2:55 PM EDT)ComponentValue Ref RangeTest MethodAnalysis TimePerformed AtPathologist SignatureTBH GEU14-68 (A)NONE SEEN #/HPFTBHTBH RBC0-20 - 2 #/HPFTBHBACTERIA URINELARGE(A)NONE SEEN #/HPFTBHMUCUS URINEMODERATE(A)NONE SEENTBHSQUAMOUS EPITHELIAL CELL URINE MODERATE(A)NONE/RARE #/LPFTBHCRYSTALS SEEN?None SeenNone Seen #/HPFTBHCAST SEEN?NONE SEENNONE SEEN #/LPFTBHURINE CULTURE INDICATEDYES-LCTBHSpecimen (Source)Anatomical Location / LateralityCollection Method / VolumeCollection TimeReceived Time04/15/2025 2:55 PM EDT04/15/2025 3:05 PM EDT Narrative [facility] - 04/15/2025 3:33 PM EDT Authorizing ProviderResult TypeResult StatusCorey Justin DOCLINISYNCFinal Result Performing OrganizationAddressCity/State/ZIP CodePhone Number [facility] * (ABNORMAL) [facility] UA (CLEAN/CATCH) TOLL TICKET CLERK/MICRO IF IND. (04/15/2025 2:55 PM EDT) ComponentValueRef RangeTest MethodAnalysis TimePerformed AtPathologist SignatureCOLOR URINELT. YELLOWYELLOWTBHCLARITY URINESL CLOUDYCLEARTBHSPECIFIC GRAVITY URINE1.0151.005 - 1.025TBHPH URINE6.55.0 - 9.0TBHPROTEIN URINETRACE NEG/TRACE mg/dLTBHGLUCOSE URINE UANEGATIVENEGATIVE mg/dLTBHBILIRUBIN URINE NEGATIVENEGATIVETBHKETONES URINENEGATIVENEGATIVE mg/dLTBHBLOOD URINENEGATIVE NEGATIVETBHNITRITE URINEPOSITIVE(A)NEGATIVETBHUROBILINOGEN URINE1.00.2 - 1.0 EU/dLTBHLEUKOCYTE ESTERASE URINESMALL(A)NEGATIVETBHURINE MICROSCOPIC INDICATED YESTBHSpecimen (Source)Anatomical Location / LateralityCollection Method / VolumeCollection TimeReceived Time04/15/2025 2:55 PM EDT04/15/2025 3:05 PM EDT Narrative [facility] - 04/15/2025 3:33 PM EDT Authorizing [...]
--- OUTSIDE RECORDS SUMMARY | 2025-07-11 16:51 | XMS_ITS | Encounter Summary ---
Author Organization [facility] Address [address] [place] [address] Care Team Providers Care Dairy Chemist Name Role Phone Unavailable Primary Care Provider Unavailabl e Encounter Details DateTypeDepartmentCare Team (Latest Contact Info)Fggxngiefnm86/28/2025linisync Result Encounter [facility] Unsolicited Candice Anderson, DO [address] [place], [place] [id number] Social History Tobacco UseTypesPacks/DayYears UsedDateSmoking Tobacco: Never Assessed Estimated Date of AhnkjxigJyfwziloSbl13/20/2025Based on UltrasoundSex and Gender InformationValueDate RecordedSex Assigned at GlvdiLoonef35/21/2025 1:58 PM EST Legal JyzIeedgs36/15/2023 6:58 PM EDTGender FyrnbhcrLnlhoa92/21/2025 1:58 PM EST Sexual UuoopvmiovtFfubxnph90/21/2025 1:58 PM ESTdocumented as of this encounter Plan of Treatment Not on file documented as of this encounter Procedures Procedure NamePriorityDate/TimeAssociated DiagnosisCommentsUS OB BPP W NON-CSJWUT1107/06/2025 9:55 AM EDT documented in this encounter Results * US OB BPP W NON-STRESS (07/06/2025 9:55 AM EDT)Anatomical Region LateralityModalityOtherSpecimen (Source)Anatomical Location / Laterality Collection Method / VolumeCollection TimeReceived Time07/06/2025 9:55 AM EDT Narrative 07/06/2025 9:57 AM EDT [facility] ?[address] ? [place] [address] ? Ultrasound Report ? Signed ? Patient: PALLAVI WEN S ?MR#: [id number] ?? : 1985 ?Acct:[id number] ?? Age/Sex: 40 / F ?ADM Date: 07/06/ ?? Loc: [facility] ??250-1 ? Attending Dr: Candice Anderson D.O. ? Ordering Physician: Candice Anderson D.O. ?? Date of Service: 07/06/25 ?? Procedure(s): US OB BPP w non-stress ?? Accession Number(s): [id number] ? cc: Candice Anderson D.O.; Lynn Jose D.O. ? [facility] ? [address] ? [place] [address] ? Patient Name: ?? PALLAVI Kit RUBINA ? MRN: [facility]:[id number] ? date: 1985 ?Sex: F ?? Assigned Patient Location: [facility] ?? Current Patient Location: [facility] ?? Accession/Order Number: [id number] ?? Exam Date: 07/06/2025 ??09:32 ?Report Date: [...] Dictation Location: RADIO-PC-02 ? Electronically authenticated by: [id number] ??Y ?? Date: 07/06/2025 ??09:55 ? Dictated By: ?Joan Woamck M.D. ? Signed By: ?07/06/ 0957 ? DD/DT: 07/06/ 0955 ? TD/TT: ? Residential Energy Auditor: Procedure Note Radiology, Radiologist, - 07/06/2025 [place] [address] Ultrasound Report Signed Patient: PALLAVI WEN SMR#: [id number] : 1985Acct:[id number] Age/Sex: 40 / FADM Date: 07/06/25 Loc: [facility] 250-[address]: Candice Anderson D.O. Ordering Physician: Candice Anderson D.O. Date of Service: 07/06/25 Procedure(s): US OB BPP w non-stress Accession Number(s): [id number] cc: Candice Anderson D.O.; Lynn Jose D.O. The [place] [address] Patient Name: PALLAVI WEN MRN: [facility]:[id number] date: 1985 Sex: F Assigned Patient Location: [facility] Current Patient Location: [facility] Accession/Order Number: [id number] Exam Date: 07/06/2025 09:32 Report Date: 07/06/2025 [...] Womack M.D. 07/06/2025 9:55 AM Dictation Location: [place] [address] Electronically authenticated by: [id number] Y Date: 9:55 Dictated By: Joan Womack M.D. Signed By:07/06/25956 DD/ 4 TD/TT: Residential Energy Auditor: Authorizing ProviderResult TypeResult StatusCorey Justin DOCLINISYNC IMAGINGFinal Result documented in this encounter Visit Diagnoses Not on filedocumented in this encounter
--- OUTSIDE RECORDS SUMMARY | 2025-07-11 16:51 | XMS_ITS | Encounter Summary ---
Author Organization [facility] Address [address] [facility] [place] [address] Care Team Providers Care Art Tracer Name Role Phone Unavailable Primary Care Provider Unavailabl e Encounter Details DateTypeDepartmentCare Team (Latest Contact Info)Xwtnnllmrdu60/22/2025bstract [facility] [place] [facility] [address] [place] [address] [place] Social History Tobacco UseTypesPacks/DayYears UsedDateSmoking Tobacco: Never Assessed Estimated Date of OerhkpmcLgxwcuztObb30/20/2025Based on UltrasoundSex and Gender InformationValueDate RecordedSex Assigned at RujjkHgaytf44/21/2025 1:58 PM EST Legal BrqKpbrmh92/15/2023 6:58 PM EDTGender GmfvlzntKlzqgw71/21/2025 1:58 PM EST Sexual VdgyscpmkhtXtjuaidc12/21/2025 1:58 PM ESTdocumented as of this encounter Plan of Treatment Not on file documented as of this encounter Visit Diagnoses Not on filedocumented in this encounter
--- OUTSIDE RECORDS SUMMARY | 2025-07-11 16:51 | XMS_ITS | Encounter Summary ---
Author Organization [facility] Address [address] [facility] [place] [address] Care Team Providers Care Practice Assistant Name Role Phone Unavailable Primary Care Provider Unavailabl e Encounter Details DateTypeDepartmentCare Team (Latest Contact Info)Iamhoxazjwf04/20/2025Bamboo flowsheet [facility] [facility] [address] [place] [address] Greg Anderson DO [address] [place] [address] Social History Tobacco UseTypesPacks/DayYears UsedDateSmoking Tobacco: Never Assessed Estimated Date of BqyrtltbIjpkaaxkIui01/20/2025Based on UltrasoundSex and Gender InformationValueDate RecordedSex Assigned at LmbopEhgpzz31/21/2025 1:58 PM EST Legal EtoKobsrz44/15/2023 6:58 PM EDTGender MgxgyeorKhiccs71/21/2025 1:58 PM EST Sexual RlsoflfiplaPfhuyfbp13/21/2025 1:58 PM ESTdocumented as of this encounter Plan of Treatment Not on file documented as of this encounter Visit Diagnoses Not on filedocumented in this encounter
--- OUTSIDE RECORDS SUMMARY | 2025-07-11 16:51 | XMS_ITS | Clinical Summary ---
Author Organization [facility] Address [address], [address] [place] [address] Care Team Providers Care Credit Checker Name Role Phone Unavailable Primary Care Provider [...] InformationValueDate RecordedSex Assigned at BirthNot on fileLegal VogXefmhq60/21/2015 4:35 PM EDTGender IdentityNot on fileSexual OrientationNot on file Last Filed Vital Signs Vital SignReadingTime TakenCommentsBlood Olibhfom396/8703/30/2016 3:03 PM EDT Inflt91982/22/2016 3:03 PM TGFXlqokgmdimc94.7 ??C (98.1 ??F)03/30/2016 3:03 PM EDTRespiratory Zied273603/30/2016 3:03 PM EDTOxygen Ihpptwnjeh95%03/30/2016 3:03 PM EDTInhaled Oxygen Concentration--Ladkfx07.4 kg (186 lb)03/30/2016 3:03 PM EDT Vkyqxo744.6 cm (5' 4 )03/30/2016 3:03 PM EDTBody Mass Index31.9303/30/2016 3:03 PM EDT Plan of Treatment Not on file
--- OUTSIDE RECORDS SUMMARY | 2025-07-11 16:51 | XMS_ITS | Encounter Summary ---
Author Organization [facility] Address [address] [place] [address] Care Team Providers Care Mental Health Specialist Name Role Phone Unavailable Primary Care Provider Unavailabl e Encounter Details DateTypeDepartmentCare Team (Latest Contact Info)Mqbhzrtsted43/20/2025External Result Encounter [facility] External [facility] Unsolicited Greg Anderson, DO [address] [facility] [address] [place] [phone] Social History Tobacco UseTypesPacks/DayYears UsedDateSmoking Tobacco: Never Assessed Estimated Date of DvggmnarWdtvzeclEkr48/20/2025Based on UltrasoundSex and Gender InformationValueDate RecordedSex Assigned at AvxbkHgpeja87/21/2025 1:58 PM EST Legal VroWkgctc17/15/2023 6:58 PM EDTGender FzsomazqIcdltu15/21/2025 1:58 PM EST Sexual XkreumwtbwsDpttoymg55/21/2025 1:58 PM ESTdocumented as of this encounter Plan of Treatment Not on file documented as of this encounter Procedures Procedure NamePriorityDate/TimeAssociated DiagnosisCommentsURINARY TRACT INFECTION (HTRX)Dgnkyvb5006/28/2025 11:26 AM EDT documented in this encounter Results * (ABNORMAL) URINARY TRACT INFECTION (HTRX) (06/28/2025 11:26 AM EDT)Component ValueRef RangeTest MethodAnalysis TimePerformed AtPathologist Signature ACINETOBACTER FKZZFJCL109.961 - 24.689 ppm06/29/2025 7:56 AM EDTHealthTrackRx at LabPortACINETOBACTER BAUMANIINot Xghgtfcg26.961 - 24.689 ppm06/29/2025 7:56 AM EDTHealthTrackRx at LabPortCITROBACTER QJNCZGAK371.000 - 32.015 ppm 06/29/2025 7:56 AM EDTHealthTrackRx at LabPortCITROBACTER FREUNDIINot Detected 23.000 - 32.015 ppm06/29/2025 7:56 AM EDTHealthTrackRx at LabPortENTEROBACTER AEROGENES, MKYNEZF652.000 - 32.290 ppm06/29/2025 7:56 AM EDTHealthTrackRx at LabPortENTEROBACTER AEROGENES, CLOACAENot Rwpclkdf92.000 - 32.290 ppm 06/29/2025 7:56 AM EDTHealthTrackRx at LabPortENTEROCOCCUS FAECALIS, FAECIUM0 26.000 - 33.043 ppm06/29/2025 7:56 AM EDTHealthTrackRx at LabPortENTEROCOCCUS FAECALIS, FAECIUMNot Fennztoq66.000 - 33.043 ppm06/29/2025 7:56 AM EDT [facility]Well[facility] HospitalESCHERICHIA COLI20.735(A)23.000 - 28.500 ppm06/29/2025 7:56 AM EDTHealthTrackRx at LabPortESCHERICHIA COLIDetected(A)23.000 - 28.500 ppm06/29/2025 7:56 AM EDTHealthTrackRx at LabPortKLEBSIELLA PNEUMONIAE, GXCSQWA144.000 - 31.865 ppm06/29/2025 7:56 AM EDTHealthTrackRx at LabPort KLEBSIELLA PNEUMONIAE, OXYTOCANot Hqzwswvh33.000 - 31.865 ppm06/29/2025 7:56 AM EDTHealthTrackRx at LabPortMORGANELLA JOMIPNUO250.961 - 24.689 ppm 06/29/2025 7:56 AM EDTHealthTrackRx at LabPortMORGANELLA MORGANIINot Detected 19.961 - 24.689 ppm06/29/2025 7:56 AM EDTHealthTrackRx at LabPortPROTEUS MIRABILIS, QWLJMEML189.000 - 28.500 ppm06/29/2025 7:56 AM EDTHealthTrackRx at LabPortPROTEUS MIRABILIS, VULGARISNot Kwjmtzpw08.000 - 28.500 ppm06/29/2025 7:56 AM EDTHealthTrackRx at LabPortPSEUDOMONAS TKTWKYQFGU845.000 - 31.801 ppm 06/29/2025 7:56 AM EDTHealthTrackRx at LabPortPSEUDOMONAS AERUGINOSANot Sptxsqhq14.000 - 31.801 ppm06/29/2025 7:56 AM EDTHealthTrackRx at [facility]Port STAPHYLOCOCCUS YALUIW594.000 - 31.595 ppm06/29/2025 7:56 AM EDTHealthTrackRx at LabPortSTAPHYLOCOCCUS AUREUSNot Tmcdiljz86.000 - 31.595 ppm06/29/2025 7:56 AM EDTHealthTrackRx at LabPortSTREPTOCOCCUS AGALACTIAE (GROUP B STREP)026.000 - 32.435 ppm06/29/2025 7:56 AM EDTHealthTrackRx at LabPortSTREPTOCOCCUS AGALACTIAE (GROUP B STREP)Not Gwycmiqu72.000 - 32.435 ppm06/29/2025 7:56 AM EDTHealthTrackRx at LabPortCANDIDA ALBICANS, PARAPSILOSIS, VGRMUJOKNT134.000 - 30.347 ppm06/29/2025 7:56 AM EDTHealthTrackRx at LabPortCANDIDA ALBICANS, PARAPSILOSIS, TROPICALISNot Imwlqowi21.000 - 30.347 ppm06/29/2025 7:56 AM EDT [facility] LabPortCANDIDA WXEHSKLL405.000 - 31.618 ppm06/29/2025 7:56 AM EDTHealthTrackRx at LabPortCANDIDA GLABRATANot Cpctluir46.000 - 31.618 ppm 06/29/2025 7:56 AM EDTHealthTrackRx at LabPortCANDIDA XJNZFV515.000 - 30.873 ppm06/29/2025 7:56 AM EDTHealthTrackRx at LabPortCANDIDA KRUSEINot Detected 23.000 - 30.873 ppm10/ 7:56 AM EDTHealthTrackRx at LabWellstone Regional HospitalSERRATIA UUEDKTCRSE433.000 - 31.581 ppm06/29/2025 7:56 AM EDTHealthTrackRx at LabPort SERRATIA MARCESCENSNot Yvmczihp80.000 - 31.581 ppm06/29/2025 7:56 AM EDT [facility] CenterSTREPTOCOCCUS PYOGENES (GROUP A STREP)019.961 - 24.689 ppm06/29/2025 7:56 AM EDTHealthTrackRx at LabPortSTREPTOCOCCUS PYOGENES (GROUP A STREP)Not Xqwhnxje06.961 - 24.689 ppm06/29/2025 7:56 AM EDTHealthTrackRx at [facility] CenterSTAPHYLOCOCCUS EPIDERMIDIS, HAEMOLYTICUS, LUGDUNENSIS, SAPROPHYTICUS (IZNHL700.961 - 24.689 ppm06/29/2025 7:56 AM EDT[facility] at [facility] STAPHYLOCOCCUS EPIDERMIDIS, HAEMOLYTICUS, LUGDUNENSIS, SAPROPHYTICUS (URINANot Cvkihfvw64.961 - 24.689 ppm06/29/2025 7:56 AM EDTHealth[facility] at [facility] STAPHYLOCOCCUS EPIDERMIDIS, HAEMOLYTICUS, LUGDUNENSIS, SAPROPHYTICUS (URINA0 19.961 - 24.689 ppm06/29/2025 7:56 AM EDT[facility] at [facility] STAPHYLOCOCCUS EPIDERMIDIS, HAEMOLYTICUS, LUGDUNENSIS, SAPROPHYTICUS (URINANot Rcrpfeys02.961 - 24.689 ppm06/29/2025 7:56 AM EDTHealthTrackRx at LabPortTET B, TET M26.455(A)23.000 - 27.500 ppm06/29/2025 7:56 AM EDTHealthTrackRx at LabPortTET B, TET MDetected(A)23.000 - 27.500 ppm06/29/2025 7:56 AM EDT [facility] CenterSpecimen (Source)Anatomical Location / Laterality Collection Method / VolumeCollection TimeReceived ZmlrVchgw71/ 11:26 AM EDT10/ 1:41 AM EDT Narrative Authorizing ProviderResult TypeResult StatusCorey Justin DOLAB BLOOD ORDERABLES Final ResultPerforming OrganizationAddressCity/State/ZIP CodePhone Number [facility] [address] [address] documented in this encounter Visit Diagnoses Not on filedocumented in this encounter
--- OUTSIDE RECORDS SUMMARY | 2025-07-11 16:51 | XMS_ITS | Clinical Summary ---
Author Organization [id number] tem Address [id number] [place] [address] Care Team Providers Care Drafter Topographical Name Role Phone Unavailable Primary Care Provider Unavailabl e Allergies Active AllergyReactionsCriticalityNoted DateCommentsSulfa (Sulfonamide Antibiotics)Cyzwztng31/19/2025 Medications MedicationSigDispense QuantityRefillsLast FilledStart DateEnd DateStatus omeprazole [...] Multigravida of advanced maternal age in second /03/2025Estimated Date of DeliveryCommentsYes 07/29/2025ased on Ultrasound Encounters DateTypeDepartmentCare YwxqQqdpqkxcyzk45/11/0645Cysgay11/14/2025Travelfrom Last 3 Months Family History Medical HistoryRelationNameCommentsHypertensionFatherKidney igwnuajJtyvgqL4CP AaqhyzD1UIJsplggtl GrandfatherBreast cancerMaternal GrandmotherRelationName StatusCommentsFatherDeceasedMaternal GrandfatherMaternal Grandmother Social [...] money to get more.Never True03/11/2025Estimated Date of XirezjklDrwgxcfzMct68/20/2025ased on UltrasoundSex and Gender InformationValue Date RecordedSex Assigned at BirthNot on fileLegal FrcCzmokx93/15/2025 11:20 AM EDTGender IdentityNot on fileSexual OrientationNot on file Last Filed Vital Signs Vital SignReadingTime TakenCommentsBlood Semyzidg128/8303/11/2025 9:25 AM EDT Sqtfb019003/11/2025 9:25 AM EDTTemperature--Respiratory Rate--Oxygen Saturation-- Inhaled Oxygen Concentration--Echsqc653.2 kg (269 lb 6.4 oz)03/11/2025 9:25 AM DZGKuwval486.6 cm (5' 4 )03/11/2025 9:25 AM EDTBody Mass Index46.24003/11/2025 9:25 AM EDT Plan of Treatment Health MaintenanceDue DateLast DoneCommentsDepression Wlonesxpd58/23/1999Adult BMI Follow Up Plan2005DTaP,Tdap and Td Vaccines (1 - Tdap)2006COVID- 19 Vaccine (2 - season)504/10/2020Influenza Hxwjyjt2605/10/2025 06/15/2022, 05/23/2021dult BMI Btfnnzovk77/11/2024Tobacco Screening Pap Smear/11/2024 Medical Devices Not on file Procedures Procedure NamePriorityDate/TimeAssociated DiagnosisCommentsUS MFM OB FOLLOW-UP, 1 UUZOXRbemyjr86/11/2025 3:06 PM EDT Choroid plexus cyst of fetus in miranda Multigravida of advanced maternal age in second trimester Diet controlled gestational diabetes mellitus (GDM) in second trimester Hx of essential hypertension US MFM OB FOLLOW-UP, 1 WNWELSookzxv54/14/2025 3:22 PM EDT Choroid plexus cyst of [...] ESTRADA : 1985 SEX: F Accession Number: [id number] ORDERING PHYSICIAN: CANDICE OCHAO REFERRING PHYSICIAN: CANDICE OCHOA Coding Procedures ? 61012: Follow-up Ultrasound, per fetus Indication , Screening for follow-up survey, AMA- Supervision of elderly, Chronic hypertension affecting , Obesity in , History OB History ? 2. Para 0 ? [id number] Maternal Assessment Physical Exam ??Height 163 cm, [...] (oz) ? 8 oz EFW by: ?Hadlock (VGV-IG-BT-FL) Extended Tibia ??49.6 mm 29w 5d 43% Eliana Commodity Management Specialist ? 4.4 mm CM ? 7.0 mm [...] Heart/Thorax: 4-chamber view. RVOT view. LVOT view. 5-lvfjew-lzmudje view. Situs. Ductal arch view.Interventricular ? septum. [...] MVP measures 6.2 cm. Recommendations Please see [facility] recommendations from prior clinical and/or ultrasound report documentation. Subsequent follow up or other follow up as clinically determined by primary OB provider unless otherwise specified by [facility]. Results forwarded to ordering provider so they can follow up with the patient as necessary. Procedure Note Sam Sultana MD - 05/20/2025 NAME: RUBINA ESTRADA : 1985 SEX: F Accession Number: [id number] ORDERING PHYSICIAN: CANDICE OCHOA REFERRING PHYSICIAN: CANDICE OCHOA Coding Procedures 15673: Follow-up Ultrasound, per fetus Indication , Screening for follow-up survey, AMA- Supervision of elderly, Chronic hypertension affecting , Obesity in , History OB History 2. Para 0 [id number] Maternal Assessment Physical Exam Height 163 cm, [...] EFW (oz) 8 oz EFW by: Hadlock (BXK-IB-PA-FL) Extended Tibia 49.6 mm 29w 5d 43% Eliana Commodity Management Specialist 4.4 mm CM 7.0 mm 51% Nicolaides [...] Heart/Thorax: 4-chamber view. RVOT view. LVOT view. 5-bmgkvv-jibyqff view.Situs. Ductal arch view. Interventricular septum. Great [...] MVP measures 6.2 cm. Recommendations Please see [facility] recommendations from prior clinical and/or ultrasoundreport documentation. Subsequent follow up or other follow up as clinically determined byprimary OB provider unless otherwise specified by MFM. Results forwarded to ordering provider so they can follow up with thepatient as necessary. Authorizing ProviderResult TypeResult StatusCorey R Justin DOIMG US ORDERABLES Final Result from Last 3 Months Insurance
--- OUTSIDE RECORDS SUMMARY | 2025-07-11 16:51 | XMS_ITS | Encounter Summary ---
Author Organization [facility] Address [address] [place] [address] Care Team Providers Care Glue Jointer Feeder Name Role Phone Unavailable Primary Care Provider Unavailabl e Encounter Details DateTypeDepartmentCare Team (Latest Contact Info)Csxcnmrcami26/22/2025Telephone [facility] [address] [place] [address] Hina Moura MA Social History Tobacco UseTypesPacks/DayYears UsedDateSmoking Tobacco: Never Assessed Estimated Date of VecdukzpRlshtkmdLmc27/20/2025Based on UltrasoundSex and Gender InformationValueDate RecordedSex Assigned at CngkaZusjoc83/21/2025 1:58 PM EST Legal RusIeieud49/15/2023 6:58 PM EDTGender MekpcubeDjyxjw99/21/2025 1:58 PM EST Sexual DrtohftufarDoznlbrs25/21/2025 1:58 PM ESTdocumented as of this encounter [...]
[2025-07-11 17:29] LABS: Hematocrit 30.0 % (36.0-48.0); Hemoglobin 10.1 g/dL (12.0-16.0); Mean Corpuscular HGB Conc 33.7 g/dL (29.9-35.2); Mean Corpuscular Hemoglobin 27.4 pg (26.7-34.0); Mean Corpuscular Volume 81.3 fL (81.0-99.0); Platelet Count 394 10^3/uL (150-450); Red Blood Count 3.69 10^6/uL (4.20-5.40); White Blood Count 13.4 10^3/uL (4.0-11.0)
[2025-07-11 18:14] LABS: Cannabinoid Screen Urine NEGATIVE (NEGATIVE); Methamphetamines Screen Urine NEGATIVE (NEGATIVE); Tricyclic Antidepressant Urine NEGATIVE (NEGATIVE)
[2025-07-11] MEDS: MISOPROSTOL 100 MCG TABLET 25 MCG VAGINAL ×2 (19:58→22:53)
[2025-07-12] VITALS (103 sets, daily range): BP systolic 99–171; BP diastolic 53–104; PULSE 67–125; TEMP 36.7–37.2; O2SAT 95–99
[2025-07-12] MEDS: LABETALOL HCL 100 MG TABLET 200 MG PO ×2 (00:05→09:04)
[2025-07-12] MEDS: MISOPROSTOL 100 MCG TABLET 25 MCG VAGINAL (02:07)
[2025-07-12] MEDS: OXYTOCIN/0.9 % SODIUM CHLORIDE 10 UNITS/500 ML PLAST..BAG 6 UNIT IV (06:15)
[2025-07-12] MEDS: 0.9 % SODIUM CHLORIDE 1,000 ML 125 ML IV (06:22)
[2025-07-12] MEDS: AMPICILLIN SODIUM 2,000 MG in 0.9 % SODIUM CHLORIDE 100 ML 200 MG IV (09:05)
[2025-07-12] MEDS: AMPICILLIN SODIUM 1,000 MG in 0.9 % SODIUM CHLORIDE 50 ML 100 MG IV ×2 (11:13→16:40)
[2025-07-12] MEDS: 0.9 % SODIUM CHLORIDE 1,000 ML 999 ML IV (12:31)
[2025-07-12] MEDS: ROPIVACAINE HCL/PF 400 MG/200 ML PREMIX 8 MG EPIDURAL (13:30)
[2025-07-12] MEDS: ONDANSETRON 4 MG RAPDIS TABLET SL (17:41)
--- NOTE | 2025-07-12 20:18 | PM.ONB ---
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 She was prepped and draped in the normal sterile fashion. A Pfannenstiel skin incision was then made 2 cm above the symphysis pubis and carried down to underlying rectus fascia using a Bovie. The fascia was incised in the midline and extended laterally using Silva scissors. Two Bettye clamps were placed on the superior aspect of the fascia and dissected off the underlying rectus muscles. The same was performed on the inferior aspect as well. The muscles were then in the midline. Peritoneum was identified and entered bluntly. The peritoneum was then extended superiorly and inferiorly with good visualization of the bladder. The bladder blade was inserted. A low transverse incision was made on the patient's uterus and extended laterally digitally. The infant was then delivered atraumatically after the bladder blade was removed in the cephalic position. The cord was clamped and cut. Cord blood was obtained. The infant was handed off to awaiting team. The patient's placenta was spontaneously delivered. The uterus was then exteriorized. The uterus was cleared of all clots and debris. The bladder blade was reinserted. The patient's uterine incision was closed using #0 Vicryl in a running lock fashion. Excellent hemostasis was assured. The uterus was then returned to the patient's abdomen. The patient's abdomen was copiously irrigated using warm saline. Peritoneal gutters were cleared of all clots and debris. Again excellent hemostasis was assured. The patient's peritoneum was closed using 3-0 Vicryl in a running fashion. The patient's fascia was closed using #0 Vicryl in a running fashion. The patient's skin was closed using 4-0 Vicryl subcuticularly. The patient tolerated the procedure well. Sponge, lap, and needle counts were correct x2. The patient was taken to the Recovery Room in stable condition. Anesthesia: epidural Surgeon: Greg Anderson Press Operator Assistant: Francesca Zuniga Estimated blood loss (mL): 575 Pathology: none sent Condition: stable Disposition: floor
[2025-07-12] MEDS: FAMOTIDINE/PF 20 MG/2 ML VIAL IV (20:40)
[2025-07-12] MEDS: CITRIC ACID/SODIUM CITRATE 30 ML SOLUTION ORACIT SHOHL'S SOLN PO (20:40)
[2025-07-12] MEDS: CEFAZOLIN SODIUM/DEXTROSE,ISO 2 GM/50 ML PIGGYBACK IV (20:40)
--- NOTE | 2025-07-12 21:20 | P.OBPRC_ITS ---
Procedure Pre-op/Post-op diagnoses: Pre-Op/Post-Op Diagnoses Operation Date: 07/12/25 20:15 <No data on this case meets the specified criteria> Procedure: Procedures Operation Date: 07/12/25 20:15 Actual Procedure Side Surgeon p Not Applicable Greg Anderson DO Street Commissioner: Francesca Zuniga Estimated blood loss (mL): 575 Disposition: PACU Anesthesia type: Epidural
[2025-07-12 22:52] LABS: Glucose Urine UA NEGATIVE (NEGATIVE)
[2025-07-12 23:02] LABS: Cast Seen? NONE SEEN #/LPF (NONE SEEN); Crystals Seen? Seen #/HPF (None Seen); Urine Culture Indicated YES-LC
[2025-07-13] VITALS (7 sets, daily range): BP systolic 112–135; BP diastolic 64–83; PULSE 100–114; TEMP 36.6; O2SAT 95
[2025-07-13] MEDS: LABETALOL HCL 100 MG TABLET 200 MG PO ×2 (00:47→23:07)
[2025-07-13] MEDS: CEFAZOLIN SODIUM/DEXTROSE,ISO 2 GM/50 ML PIGGYBACK IV (04:12)
[2025-07-13 06:11] LABS: Hematocrit 26.3 % (36.0-48.0); Hemoglobin 8.4 g/dL (12.0-16.0); Immature Granulocytes Abs Auto 0.21 10^3/uL (0.00-0.03); Immature Granulocytes Pct Auto 0.9 % (0.0-0.5); Lymphocytes Absolute Auto 1.2 10^3/uL (1.2-3.8); Mean Corpuscular HGB Conc 31.9 g/dL (29.9-35.2); Mean Corpuscular Hemoglobin 26.5 pg (26.7-34.0); Mean Corpuscular Volume 83.0 fL (81.0-99.0); Platelet Count 338 10^3/uL (150-450); Red Blood Count 3.17 10^6/uL (4.20-5.40); White Blood Count 22.4 10^3/uL (4.0-11.0)
[2025-07-13 06:18] LABS: Glucose 132 mg/dL (74-106)
--- NOTE | 2025-07-13 08:50 | P.OBPN_ITS ---
OB - PN: Subj Subjective Patient comments: no complaints and pain well controlled [place] status: doing well Exam Constitutional Vital Signs, click to edit/add: Last Vital Signs Temp 98.2 F 07/12/25 23:50 Pulse 99 H 07/12/25 23:50 Resp 16 07/13/25 04:35 BP 139/88 07/12/25 23:37 Pulse Ox 95 07/13/25 04:35 O2 Del Method Room Air 07/13/25 04:35 Documenting provider has reviewed patient's vital signs: yes Common normals: no apparent distress Respiratory Common normals: normal respiratory effort and clear to auscultation bilaterally Cardio Common normals: regular rate and regular rhythm GI Common normals: Normal to inspection, nondistended, normoactive bowel sounds present Extremity Common normals: no clubbing, cyanosis or edema and no calf tenderness Results Labs Labs: Short CBC 07/13/25 Range/Units 05:50 WBC 22.4 H (4.0-11.0) 10^3/uL Hgb 8.4 L (12.0-16.0) g/dL Hct 26.3 L (36.0-48.0) % Plt Count 338 (150-450) 10^3/uL BMP 07/13/25 05:50 Glucose 132 H Urine 07/11/25 Range/Units 17:40 Urine Color Yellow (YELLOW) Urine Clarity Clear (CLEAR) Urine pH 5.5 (5.0-9.0) Ur Specific [place] >=1.030 A (1.005-1.025) Urine Protein Trace (NEG/TRACE) mg/dL Urine Glucose (UA) Negative (NEGATIVE) mg/dL Urinary Catheter Management Urinary Catheter Management Urethral: Cath placed during this visit: no OB - PN: A/P Plan - day: 1 Plan: routine postop care Time Spent with Patient Time: Total time spent is greater than 50% in coordination of care (as documented) at patient's floor/unit and/or counseling patient: Total time spent with greater than 50% in coordination of care (as documented) at patient's floor/unit and/or counseling patient: less than 15 minutes
[2025-07-13] MEDS: DOCUSATE SODIUM 100 MG CAPSULE PO ×2 (09:25→23:08)
[2025-07-13] MEDS: ENOXAPARIN SODIUM 40 MG/0.4 ML SYRINGE SUBQ (09:25)
[2025-07-13] MEDS: VENLAFAXINE HCL ER 150 MG CAPSULE PO (09:25)
[2025-07-13] MEDS: KETOROLAC TROMETHAMINE 30 MG/ML VIAL IVP ×2 (14:03→23:07)
[2025-07-13] MEDS: SIMETHICONE 80 MG TAB.CHEW PO (14:13)
[2025-07-14] VITALS (7 sets, daily range): BP systolic 117–131; BP diastolic 64–88; PULSE 96–104; TEMP 36.2–37.2; O2SAT 95
--- NOTE | 2025-07-14 07:47 | P.OBPN_ITS ---
OB - PN: Subj Subjective Patient comments: no complaints and pain well controlled [place] status: doing well Exam Constitutional Vital Signs, click to edit/add: Last Vital Signs Temp 97.9 F 07/13/25 23:30 Pulse 105 H 07/13/25 23:30 Resp 16 07/13/25 23:30 BP 135/82 07/13/25 23:30 Pulse Ox 95 07/13/25 19:38 O2 Del Method Room Air 07/13/25 23:30 Documenting provider has reviewed patient's vital signs: yes Common normals: no apparent distress Respiratory Common normals: normal respiratory effort and clear to auscultation bilaterally Cardio Common normals: regular rate and regular rhythm GI Common normals: Normal to inspection, nondistended, normoactive bowel sounds present Extremity Common normals: no clubbing, cyanosis or edema and no calf tenderness Urinary Catheter Management Urinary Catheter Management Urethral: Cath placed during this visit: no OB - PN: A/P Assessment and Plan (1) Chronic hypertension: Assessment and Plan: continue meds (2) Advanced maternal age (AMA) in : Plan - day: 2 Plan: routine postop care Time Spent with Patient Time: Total time spent is greater than 50% in coordination of care (as documented) at patient's floor/unit and/or counseling patient: Total time spent with greater than 50% in coordination of care (as documented) at patient's floor/unit and/or counseling patient: less than 15 minutes
[2025-07-14] MEDS: ENOXAPARIN SODIUM 40 MG/0.4 ML SYRINGE SUBQ (09:16)
[2025-07-14] MEDS: LABETALOL HCL 100 MG TABLET 200 MG PO ×2 (09:17→22:24)
[2025-07-14] MEDS: VENLAFAXINE HCL ER 150 MG CAPSULE PO (09:18)
[2025-07-14] MEDS: KETOROLAC TROMETHAMINE 30 MG/ML VIAL IVP ×2 (09:19→16:52)
[2025-07-14] MEDS: DOCUSATE SODIUM 100 MG CAPSULE PO (22:23)
[2025-07-14] MEDS: IBUPROFEN 400 MG TABLET 800 MG PO (22:27)
[2025-07-15 07:45] VITALS: BP 128/75; PULSE 88; TEMP 36.7
--- NOTE | 2025-07-15 07:47 | P.OBPN_ITS ---
OB - PN: Subj Subjective Patient comments: no complaints and pain well controlled [place] status: doing well Exam Constitutional Vital Signs, click to edit/add: Last Vital Signs Temp 98.1 F 07/14/25 22:20 Pulse 88 07/15/25 07:45 Resp 16 07/14/25 23:28 BP 128/75 07/15/25 07:45 Pulse Ox 95 07/14/25 17:00 O2 Del Method Room Air 07/14/25 22:20 Documenting provider has reviewed patient's vital signs: yes Common normals: no apparent distress Respiratory Common normals: normal respiratory effort and clear to auscultation bilaterally Cardio Common normals: regular rate and regular rhythm GI Common normals: Normal to inspection, nondistended, normoactive bowel sounds present Extremity Common normals: no clubbing, cyanosis or edema and no calf tenderness Urinary Catheter Management Urinary Catheter Management Urethral: Cath placed during this visit: no OB - PN: A/P Assessment and Plan (1) Chronic hypertension: (2) Advanced maternal age (AMA) in : Plan - day: 3 Plan: routine postop care, discharge home and other (fu 1wk) Time Spent with Patient Time: Total time spent is greater than 50% in coordination of care (as documented) at patient's floor/unit and/or counseling patient: Total time spent with greater than 50% in coordination of care (as documented) at patient's floor/unit and/or counseling patient: less than 15 minutes
[2025-07-15] MEDS: VENLAFAXINE HCL ER 150 MG CAPSULE PO (08:04)
[2025-07-15] MEDS: ENOXAPARIN SODIUM 40 MG/0.4 ML SYRINGE SUBQ (08:04)
[2025-07-15] MEDS: SIMETHICONE 80 MG TAB.CHEW PO (08:05)
[2025-07-15] MEDS: LABETALOL HCL 100 MG TABLET 200 MG PO (08:05)
[2025-07-15] MEDS: IBUPROFEN 400 MG TABLET 800 MG PO (08:05)
[2025-07-15] MEDS: DOCUSATE SODIUM 100 MG CAPSULE PO (08:05)
== END 2025-07-15 13:50 | disposition home or self-care (01) | DRG 788 ==
PROVIDERS: Admitting Provider Obstetrics & Gynecology; PCP Family Medicine; Visit Provider Obstetrics & Gynecology
PROC: 10D00Z1 Extraction of Products of Conception, Low, Open Approach (ICD-10-PCS; CPT 59514; principal; 2025-07-12 20:15)
DX: O10.92 Unspecified pre-existing hypertension complicating childbirth (principal); O24.429 Gestational diabetes mellitus in childbirth, unspecified control; O32.4XX0 Maternal care for high head at term, not applicable or unspecified; Z3A.37 37 weeks gestation of pregnancy; Z37.0 Single live birth; Z87.440 Personal history of urinary (tract) infections; Z79.899 Other long term (current) drug therapy
CPT/HCPCS: 36415; 59050; 80307; 81001; 82947; 85025; 85027; 86850; 86900; 86901; 87086; 87186; 94667; 94668; J0131; J0290; J0690; J1100; J1200; J1650; J1885; J2274; J2300; J2405; J2590; J2795; J3490; Q0162

== ENCOUNTER 2025-07-21 08:09 | Outpatient (OUT) | payer BC, SELFPAY ==
--- OUTSIDE RECORDS SUMMARY | 2025-07-07 14:20 | XMS_ITS | Encounter Summary ---
Author Organization [facility] Address [address] [facility] [place] [address] Care Team Providers Care Jewelry Salesperson Name Role Phone Unavailable Primary Care Provider Unavailabl e Reason for Visit * ReasonCommentsRoutine Visit Encounter Details DateTypeDepartmentCare Team (Latest Contact Info)Ppjrstbsqkr03/29/2025 3:20 PM EDTRoutine [facility] OBGYN [address] [place] [address] Krupa Hernandez PA [address] [place], [facility]11 36 weeks gestation of ([facility]); Third trimester ([facility]) Social History Tobacco UseTypesPacks/DayYears UsedDateSmoking Tobacco: Never Assessed CommentsYesSex and Gender InformationValueDate RecordedSex Assigned at Hmwcca5209/29/2024 1:58 PM ESTLegal EevWgdtfh59/15/2023 6:58 PM EDTGender Identity Ggdspu1809/29/2024 1:58 PM ESTSexual AxmdqspbuuaJbedzbrt16/21/2025 1:58 PM EST documented as of this encounter Last Filed Vital Signs Vital SignReadingTime TakenCommentsBlood Zattgbjj078/9007/07/2025 3:36 PM EDT Pulse--Temperature--Respiratory Rate--Oxygen Saturation--Inhaled Oxygen Concentration--Nmckqt821 kg (275 lb 4 oz)07/07/2025 3:36 PM EDTHeight--Body Mass Index--documented in this encounter Progress Notes * SURESH Pa - 07/07/2025 3:20 PM EDT Reason for Appointment: Patient ID: Pallavi Wen is a 40 y.o. female who presents for Routine Visit Patient presents today for Return OB appointment. MEDICATIONS Current Outpatient Medications Medication Instructions Alcohol Swabs (Alcohol Prep Pad) 70 % pads 1 Pad, Topical, Daily, Use four times daily to check FSBS. aspirin 81 mg, Daily Blood Glucose Monitoring Suppl ([employer] Blood Glucose Meter) device 1 kit, Does not apply, 4 times daily labetalol (NORMODYNE) 200 mg, Oral, 3 times daily metoclopramide (REGLAN) 10 mg, Oral, 3 times daily before meals, Take 1 tablet by mouth 30 minutes prior to meals 3 times daily as needed for nausea. nitrofurantoin (macrocrystal-monohydrate) (MACROBID) 100 mg, Oral, 2 times daily omeprazole (PriLOSEC) [address] capsule PLEASE SEE ATTACHED FOR DETAILED DIRECTIONS pantoprazole (PROTONIX) 40 mg, Oral, Daily before breakfast, Do not crush, chew, or split. MV-Min-Fe Fum-FA-DHA ( 1 PO) Take by mouth venlafaxine XR (EFFEXOR XR) 150 mg, Daily ALLERGIES Allergies Allergen Reactions Sulfa Antibiotics Swelling Other Reaction(s): Swelling of throat Sulfamethoxazole-Trimethoprim Unknown PROBLEMS Active Ambulatory Problems Diagnosis Date Noted No Active Ambulatory Problems Resolved Ambulatory Problems Diagnosis Date Noted No Resolved Ambulatory Problems No Additional Past Medical History HISTORY PAST MEDICAL HISTORY SOCIAL HISTORY No past medical history on file. Social History Tobacco Use Smoking status: Not on file Smokeless tobacco: Not on file Substance Use Topics Alcohol use: Not on file Drug use: Not on file FAMILY HISTORY No family history on file. SURGICAL HISTORY No past surgical history on file. REVIEW OF SYSTEMS Review of Systems: Review of Systems Constitutional: Negative. HENT: Negative. Eyes: Negative. Respiratory: Negative. Cardiovascular: Negative. Gastrointestinal: Negative. Genitourinary: Negative. Musculoskeletal: Negative. Skin: Negative. Neurological: Negative. All other systems reviewed and are negative. Hematological: Negative. Endocrine: Negative. Allergic/Immunologic: Negative. OBJECTIVE Objective: Physical Exam Constitutional: Appearance: Normal appearance. She is normal weight. HENT: Head: Normocephalic. Cardiovascular: Rate and Rhythm: Normal rate. Pulses: Normal pulses. Pulmonary: Effort: Pulmonary effort is normal. Breath sounds: Normal breath sounds. Abdominal: Palpations: Abdomen is soft. Musculoskeletal: General: Normal range of motion. Neurological: General: No focal deficit present. Mental Status: She is alert and oriented to person, place, and time. Psychiatric: Mood and Affect: Mood normal. Behavior: Behavior normal. Thought Content: Thought content normal. Judgment: Judgment normal. Vitals and nursing note reviewed. Vitals: There is no height or weight on file to calculate BMI. BP: 160/90 No LMP recorded. Patient is . Assessment/Plan ICD-10-CM 1. 36 weeks gestation of ([facility]) Z3A.36 POCT urinalysis dipstick manually resulted 2. Third trimester ([facility]) Z34.93 CULTURE, GROUP B STREP WITH SUSCEPTIBLITY CULTURE, GROUP B STREP WITH SUSCEPTIBLITY Patient is doing well but has complaints of being tired and having maternal discomfort due to . Patient verbalized frequent movement and was instructed to perform kick counts three times per day. labor precautions were given, LARC consent was signed/declined, and GBS was obtained. Cervical check was performed and patient is 0cm dilated. Orders Placed This Encounter Procedures CULTURE, GROUP B STREP WITH SUSCEPTIBLITY POCT urinalysis dipstick manually resulted Follow Up: Patient is to return to office in 1 week for routine OB appointment Documented by SURESH Pa on behalf of: SURESH Pa documented in this encounter Plan of Treatment DateTypeDepartmentCare Team (Latest Contact Info)Mnlvmajnntw76/15/2025 11:30 AM ESTPostpartum Visit [facility] [address] [place] [address] Krupa Hernandez PA [address] [place] [address] NameTypePriorityAssociated DiagnosesOrder ScheduleCULTURE, GROUP B STREP WITH SUSCEPTIBLITYLabRoutine Third trimester ([facility]) Expected: 07/07/2025, Expires: 07/07/2026documented as of this encounter Procedures Procedure NamePriorityDate/TimeAssociated DiagnosisCommentsPOCT URINALYSIS SXDACSCPGfeqqps35/29/2025 3:48 PM EDT 36 weeks gestation of ([facility] documented in this encounter Results * (ABNORMAL) POCT urinalysis dipstick manually resulted (07/07/2025 3:48 PM EDT) ComponentValueRef RangeTest MethodAnalysis TimePerformed AtPathologist SignatureColor, UAYellowClarity, UAClearGlucose, UANegativeNegative - 2000(110) ++++ mg/dLBilirubin, UANegativeNegative - 4(70) +++ mg/dLKetones, UA NegativeNegative - 160(16) ++++ mg/dLSpec Grav, UA1.0301 - 1.03Blood, UA NegativeNegative - 50 Javi/mcLpH, UA6.05 - 9Protein, UAPositiveNegative - 2000(20) ++++ mg/dLComment:TraceUrobilinogen, UA0.20.2 - 12 mg/dLLeukocytes, UANegativeNegative - 500+++ Tomas/mcLNitrite, UANegativeNegative - Positive Specimen (Source)Anatomical Location / LateralityCollection Method / Volume Collection TimeReceived QibhFgsos78/29/2025 3:48 PM EDT Narrative Authorizing ProviderResult TypeResult StatusShenandoah [facility] Hospital TEST ENTER/EDIT ORDERABLESFinal Result documented in this encounter Visit Diagnoses Diagnosis 36 weeks gestation of ([facility]) Third trimester ([facility]) state, incidental documented in this encounter
--- OUTSIDE RECORDS SUMMARY | 2025-07-13 19:35 | XMS_ITS | Continuity of Care Document ---
Author Organization [facility] Address [address] [place] [address] Phone Care Team Providers Care [employer] Principal Name Role Phone Lynn Jose DO Primary Care Provider Shaun Gross MD Attending Provider Greg Anderson DO Attending Provider Care Teams Visit Care Team Team Status: Inactive Member Role/Relationship Status Dates Lynn Jose DO Primary Care Provider Active Start: May 10, 2025 End: May 11riTiera Garcia ProviderActiveStart: May 10, 2025 End: May 11, 2025 Patient Care Team Team Status: Inactive Member Role/Relationship Status Dates Greg Anderson DO Attending Provider Active Start : July 12, 2025 End: July 12, 2025 Chief Complaint and Reason for Visit Chief Complaint Admit Date 28 wks IUP lower back pain n/v May 10, 2025 9:43pm Unknown July 12, 2025 9 :24pm Reason for Visit Admit Date 28 weeks gestation of Septemb2024 9:43pm Renal colic on right side May 10, 2025 9:43pm Allergies, Adverse Reactions, Alerts Allergen Type Severity Reaction Last Updated Verified Status adhesive Allergy Unknown Rash May 10, 2025 9:46pm Yes Active Sulfa (Sulfonamide Antibiotics) Allergy Unknown Anaphylaxis May 10 9:46pm Yes Active Social History Smoking Status Status Start Date End Date Date of Observa tion Never smoked tobacco (finding) October 16, 2024 1:20pm Observation Status Observation Response Date of Response Legal Sex Female (finding) [facility] 1984 Family History Relationship Condition Age at Onset Recorded Date/T derick Not Specified No pertinent family history Unknown Problems Active Problems Problem Diagnosis/Recorded Date Onset Date Stat us 28 weeks gestation of May 11, 2025 10 :23am Unknown Active Renal colic on right side May 11, 2025 10:23am Unknown Active Inactive/Resolved Problems Problem Diagnosis/Recorded Date Onset Date Stat us UTI (urinary tract infection) October 16, 2024 2:37p m Unknown Resolved Vaginal bleeding October 16, 2024 2:37pm Unknown Resolved Medications Medication Status Dose Units Route Directions Qty Days Refills S tart Date Stop Date End Date Reason(s) Instructions Adherence amlodipine benzoate Discontinued .ROUTEFebruary 2024 12:00amSept2024 12:08amvenlafaxine besylate DiscontinuedPOOctober 16, 2024 12:00amSept2024 12:09amPnv No.95- Ferrous Fumarate-Fa () 28 mg iron- 800 mcg pkxtlzQcnmbr7VOTEDGzbyb October 16, 2024 12:00amUnknownCephalexin 500 mg ibdnsdoAzpockeyfdox396HXAH Twice fxjgy74532Nvqnqttm2024 12:00amSept2024 12:08amVenlafaxine 150 mg capsule,extended release 39azIrgdsk229MCNKYkktnPxbyjbosc 1st, 2025 11:00pmUnknownOmeprazole 40 mg capsule,delayed release(DR/EC)Nimode05DRMENsnff May 10, 2025 11:00pmUnknownLabetalol 200 mg ondkiqBtdexs840MNWETuyvo times dailyMay 10, 2025 11:00pmUnknownHydromorphone (Dilaudid) 2 mg hyazxpUssmnn3WMOUVhvuo 6 hours as needed for sgla4236Vlfoblhbr2024Renal colic on right side 28 weeks gestation of Unspecified renal colic 28 weeks gestation of pregnancyUnknownCephalexin 500 mg pmaqxoeNepyvu979NOMTLjey times hjuhf9449Kjhpsbrqx2024 11:00pmUnknown Procedures Procedure Date Performed Status US renal BI May 11, 2025 10:14am comp leted Urine Culture May 10, 2025 completed Relevant Diagnostic Tests and/or Laboratory Data Laboratory Results Test Collection Date/Time Result Date/Time Result Interpretation Reference Range Result Comment Performing Site Corrected White Blood Count May 10, 2025 10:10pm May 10, 2025 10:25pm 19.3 10*3/uL Above high normal 3.8-11.6 [facility] [id number] [address] [facility] [address]Ursbmeoyehi WBC CountSeptember 2024 10:10pmSept2024 10:25pm19.3 10*3/uLAbove high normal3.8-11.6[facility] [id number] [address] [facility] [address]Wdb Blood CountSeptember 2024 10:10pmSept2024 10:25pm4.05 10*6/uL3.60-5.00[facility] [id number] [address] [facility] [address]KzppejpfybTbqpwfkld 2024 10:10pmSept2024 10:25pm11.3 g/dLBelow low ibxylq94.8-15.4[facility] [id number] [address] [facility] [address]FridxrcsqkOfpucdccl 2024 10:10pmSept2024 10:25pm33.0 %Below low laqjkf93.0-46.4[facility] [id number] [address] [facility] [address]Uque Corpuscular VolumeSeptember 2024 10:10pmSept2024 10:25pm81.4 rT66-735SylvsapggAdams County Regional [facility] [id number] [address] [facility] [address]Tzmq Corpuscular HemoglobinSeptember 2024 10:10pmSept2024 10:25pm27.9 pg24.7-34.3[facility] [id number] [address] [facility] [address]Ultn Corpuscular Hemoglobin ConcentSeptember 2024 10:10pm May 10, 2025 10:25pm34.2 g/dL32.0-35.0[facility] [id number] [address] [facility] [address]Vom Cell Distribution WidthSept2024 10:10pmMay 10, 2025 10:25pm14.6 %11.9-15.3[facility] [id number] [address] [facility] [address]Solmbkan CountSept2024 10:10pmSept2024 10:50dt359 10*3/oJ858-154DxwcddoczAdams [facility] [id number] [address] [facility] [address]Ntyp Platelet VolumeSept2024 10:10pmSe2024 10:25pm7.3 fL6.3-10.7[facility] [id number] [address] [facility] [address]Tixmvrcmpeo (%) (Auto)May 10, 2025 10:10pmSe2024 10:25pm91.2 %.[facility] [id number] [address] [facility] [address]Luuztdnmzux (%) (Auto)May 10, 2025 10:10pmMay 10, 2025 10:25pm4.8 %.[facility] [id number] [address] [facility] [address]Rthbwtshc (%) (Auto)May 10, 2025 10:10pmMay 10, 2025 10:25pm3.2 %.[facility] [id number] [address] [facility] [address]Uwlicwxbszr (%) (Auto)May 10, 2025 10:10pmMay 10, 2025 10:25pm0.4 %.[facility] [id number] [address] [facility] [address]Bhuiahflc (%) (Auto)May 10, 2025 10:10pmSept2024 10:25pm0.4 %.[facility] [id number] [address] [facility] [address]Eqgxsvjit RBC Relative Count (auto)May 10, 2025 10:10pm May 10, 2025 10:25pm0.1 /100{WBC}0-0.5[facility] [id number] [address] [facility] [address]Ilwjsufsijc # (Auto)May 10, 2025 10:10pmSeptember 2024 10:25pm17.6 10*3/uLAbove high normal1.8-7.7[facility] [id number] [address] [place] [address]37[address]Lymphocytes # (Auto)May 10, 2025 10:10pmSeptember 2024 10:25pm0.9 10*3/uLBelow low normal1.00-4.8[facility] [id number] [address] [facility] [address]Hmjkadhyk # (Auto)May 10, 2025 10:10pmSeptember 2024 10:25pm0.6 10*3/uL0.0-0.8[facility] [id number] [address] [facility] [address]Mlmmolposul # (Auto)May 10, 2025 10:10pmSeptember 2024 10:25pm0.1 10*3/uL0.0-0.45[facility] [id number] [address] [place] [address]Basophils # (Auto)May 10, 2025 10:10pmSeptember 2024 10:25pm0.1 10*3/uL0.0-0.2[facility] [id number] [address] [facility] [address]Gcvdj ColorSeptember 2024 9:30pmSeptember 2024 9:59pm YellowYellowAdams County Regional Medical Center [facility] [id number] [address] [facility] [address]Wmqei AppearanceSeptember 2024 9:30pmSeptember 2024 9:59pmTurbidAbnormal (applies to non-numeric results)ClearAd[facility] [id number] [address] [facility] [address]Lhbya Specific GravitySeptember 2024 9:30pmSeptember 2024 9:59pm1.0221.001-1.030[facility] [id number] [address] [facility] [address]Ijcyw pHSeptember 2024 9:30pmSeptember 2024 9:59pm5.5 5.0-9.0[facility] [id number] [address] [facility] [address]Ydini Leukocyte EsteraseSeptember 2024 9:30pmSeptember 2024 9:59pm4+Above high normalNegativeAdams County Regional [facility] [id number] [address] [facility] [address]Nkmpr NitriteSeptember 2024 9:30pmSeptember 2024 9:59pmNegativeNegativeAdams County Regional [facility] [id number] [address] [facility] [address]Jagrm ProteinSeptember 2024 9:30pmSeptember 2024 9:55gf516 mg/dLAbove high normalNegativeAdams County [facility] [id number] [address] [facility] [address]Uomdd Glucose (UA)May 10, 2025 9:30pmSeptember 2024 9:59pmNormal mg/dLNormalAdams County Regional [facility] [id number] [address] [facility] [address]Scteg KetonesSeptember 2024 9:30pmSeptember 2024 9:59pm2+Above high normalNegativeAdams [facility] [id number] [address] [facility] [address]Gkiuv UrobilinogenSeptember 2024 9:30pmSeptember 2024 9:59pmNormal mg/dLNormClinton [facility] [id number] [address] [facility] [address]Urdtt BilirubinSeptember 2024 9:30pmSeptember 2024 9:59pmNegativeNegativeAdams County [facility] [id number] [address] [facility] [address]Ikvvw Occult BloodSeptember 2024 9:30pmSeptember 2024 9:59pm2+Above high normalNegativeAdams County [facility] [id number] [address] [facility] [address]Atwcu RBCSeptember 2024 9:30pmSeptember 2024 10:13pm 20-49 [HPF]Above high normal0-4[facility] [id number] [address] [facility] [address]Vmjgx WBCSeptember 2024 9:30pmSeptember 2024 10:13pm Innumerable [HPF]Above high normal0-4[facility] [id number] [address] [facility] [address]Btmhp WBC ClumpsSeptember 2024 9:30pmSeptember 2024 10:13pmMany [LPF]Above high normalNone SeenAdams County Regional Medical Center [facility]tr [id number] [address] [facility] [address]Rpomq Squamous Epithelial CellsSeptember 2024 9:30pm Mechelle 2024 10:29fq0-4 [HPF]0-2[facility] [id number] [address] [facility] [address]Ghtvb BacteriaSeptember 2024 9:30pmSeptember 2024 10:13pm2+ [HPF]Above high normalNone SeenAdams County Regional Medical [facility] [id number] [address] [facility] [address]Lyfrf Hyaline CastsSeptember 2024 9:30pmSeptember 2024 10:13pmNone [LPF]0-8[facility] [id number] [address] [facility] [address]Agash MucusSeptember 2024 9:30pmSeptember 2024 10:13pm4+ [LPF]Abnormal (applies to non-numeric results)[facility] [id number] [address] [facility] [address]Iogjq FibronectinSeptember 2024 10:05pmSeptember 2024 11:02pmNegativeNegativeAdams County Regional [facility] [id number] [address] [facility] [address]Wxiirca LevelSeptember 2024 10:10pmSeptember 2024 10:72ql897 mg/dLAbove high fzwrob16-219WBP recommended reference rangeRandom Glucose Reference Range is dependent on time and content of last meal. Glucose of more than 200 mg/dL in a nonstressed, ambulatory subject supports the diagnosisof Diabetes Mellitus.[facility] [id number] [address] [facility] [address]Dlptw Urea NitrogenSeptember 2024 10:10pmSeptember 2024 10:45pm10 mg/dL7-25[facility] [id number] [address] [facility] [address]FniecusrnxYxlmdottd 2024 10:10pmSeptember 2024 10:45pm0.68 mg/dL0.60-1.20[facility] [id number] [address] [facility] [address]Eoslxjcmv GFR (CKD-EPI)May 10, 2025 10:10pmSeptember 2024 10:45pm> 60.0 mL/MinAdams County Regional Medical Center [facility] [id number] [address] [facility] [address]Uptbwq LevelSeptember 2024 10:10pmSeptember 2024 10:68io674 mmol/S946-467YwscjkaryAdams County Regional [facility] [id number] [address] [facility] [address]Waooouaki LevelSeptember 2024 10:10pmSeptember 2024 10:45pm3.9 mmol/L3.5-5.1[facility] [id number] [address] [facility] [address]Sagpogkn LevelSeptember 2024 10:10pmSeptember 2024 10:65is003 mmol/D64-819NcbdhootnAdams County Regional [facility] [id number] [address] [place] [address]Carbon Dioxide LevelSeptember 2024 10:10pmSeptember 2024 10:45pm19.3 mmol/LBelow low quzblx47.0-31.0[facility] [id number] [address] [facility] [address]Poajm GapSeptember 2024 10:10pmSeptember 2024 10:45pm 14.6 mEq/L6.0-15.0[facility] [id number] [address] [place] [address]Calcium LevelSeptember 2024 10:10pmSeptember 2024 10:45pm9.1 mg/dL8.6-10.3[facility] [id number] [address] [facility] [address]Ijqtr ProteinSeptember 2024 10:10pmSeptember 2024 10:45pm6.3 g/dLBelow low normal6.4-8.9[facility] [id number] [address] [facility] [address]BukjauhNkmpizjki 2024 10:10pmSeptember 2024 10:45pm 3.6 g/dL3.5-5.7[facility] [id number] [address] [facility] [address]QoltdubnZuhzotnud 2024 10:10pmSeptember 2024 10:45pm 2.7 g/dLAdams County Regional Medical Center [facility] [id number] [address] [facility] [address]Wyjusgx/Globulin RatioSeptember 2024 10:10pmSeptember 2024 10:45pm1.3[facility] [id number] [address] [facility] [address]Psjiu BilirubinSeptember 2024 10:10pmSeptember 2024 10:45pm0.4 mg/dL0.3-1.0[facility] [id number] [address] [facility] [address]Wgfnazuag Amino Transf (AST/SGOT)May 10, 2025 10:10pm May 10, 2025 10:45pm15 U/X94-63DgsdxmkfwAdams County Regional [facility] [id number] [address] [facility] [address]Undzduh Aminotransferase (ALT/SGPT)May 10, 2025 10:10pm May 10, 2025 10:45pm15 U/L7-52[facility] [id number] [address] [facility] [address]Uwapmjeb PhosphataseSeptember 2024 10:10pmSeptember 2024 10:45pm89 U/S65-437PpsdhgctnAdams County Regional [facility] [id number] [address] [facility] [address]Saqftbt LevelSeptember 2024 10:10pmSeptember 2024 10:45pm48 U/F98-803NtmxkjqcxAdams County Regional [facility] [id number] [address] [facility] [address]DanyzfXtbirmsko 2024 10:10pmSe2024 10:45pm 20.0 U/L11.0-82.0[facility] [id number] [address] [place] [address]Ojxykdyi Creatinine Clearance (ChemSept2024 10:10pm May 10, 2025 10:88qu545.87[facility] [id number] [address] [place] [address] Microbiology Results Procedure Source Result Collection Date/Time Result Date/Time Result Comment Performing Site Urine Culture Urine, Clean-Voided Midstream Escherichia coli May 10, 2025 10:30pm May 13, 2025 7:52am [facility] [id number] [address] [place] [address] Diagnostic Imaging Reports Author Deshaun Alanis [facility] CenterAuthoredSept2024 12:52pmReport Dictated Date/TimeDictated ByStatusRadiology ReportSept2024 12:52pm Deshaun Alanis II [facility] [place] [address] [place], [place] [address] Ultrasound Report Signed Patient: Pallavi Wen MR#: [id number] : 1985 Acct:[id number] Age/Sex: 40 / F ADM Date: Loc: Room: 0G7329-2 Type: REG CLI Attending Dr: Shaun Gross MD Ordering Provider: SHAUN GROSS MD Date of Service: 05/11/25 US/US renal BI: Pyelonephritis Copies to: SHAUN GROSS MD~ US renal BI 05/11/2025 12:05 PM SIGNS AND SYMPTOMS: ^Pyelonephritis ^Renal with jets COMPARISON: None. FINDINGS: Right kidney [...] Alanis M.D. 05/11/2025 12:52 PM Dictation Location: [place] [address] Tech: Chantell Blake Transcribed By: PWS 05/11/25 1252 Dictated By: Deshaun Alanis II, MD 05/11/25 1252 Signed By: <Electronically signed by Deshaun Alanis II, MD in [place]> 05/11/25 1252 Vital Signs Vital Reading Result Reference Range Collection Date/Time Height 64 [in_i] May 10, 2025 9:55tfSnmnut130.46 kgSept2024 9:46pmBody Dzmdrpikkac11.0 [degF]97.6-99.0Sept2024 9:30amHeart Iezg058 /min 60-100Sept2024 9:30amRespiratory rate20 /ufv04-48Mghrqdeug 2nd, 2025 9:30amOxygen saturation by Pulse zdwzuzgc79 %95-100Sept2024 9:30amBP Issuhlgw825 mm[Hg]100-140Sept2024 9:30amBP Scyneceum38 mm[Hg]60-100 May 11, 2025 9:30am Advance Directives Advance Directive Response Recorded Date/ Time Advance Directives No October 16, 2024 1:35pm Insurance Providers Guarantor Pallavi Wen Address [address] [place] [address]Dxrepwu Info.Home Phone: Coverage Status Update:2024 Payer Group Member ID Coverage Type Subscriber Relationship to Subscriber Effective Date Expiration Date Jayden SHERIDAN Id: [id number] S Kocher Id: [id number] [address] [facility] [place] [address] Home Phone: Self Encounters Encounter Location(s) Arrival/Admit Date Discharge/Departure Date Discharge/Departure Disposition Provider(s) Departed Clinical -[facility] - O/P May 10, 2025 9:43pm May 11, 2025 1:55pm Discharged to home care or self care (routine discharge) SHAUN GROSS MD Departed Referred -[facility] July 12, 2025 9:24pm July 12, 2025 9:25pm Discharged to home care or self care (routine discharge) Greg Justin Recent Diagnosis Onset Date Admit Date 28 weeks gestation of Unknown May 10, 2025 9:43pm Renal colic on right side Unknown Septem 2024 9:43pm Assessments Diagnosis Onset Date Resolution Status Admit Date 28 weeks gestation of acuteSept2024 9:43pmRenal colic on right sideacuteSept2024 9:43pm Plan of Treatment Future Tests Future scheduled test information is unavailable Pending Tests Test Name Ordered Date Scheduled Date Miscellaneous Pathology Test July 12, 2025 9:24pm Future Visits Future appointment information is unavailable Future Procedures Procedure Name Ordered Date Scheduled Date Pathology Request for Lab Kan July 13 1:07pm July 12, 2025 9:24pm Admit Status Order May 10, 2025 8:46pm Se pt2024 8:46pm Future Medications Future medication information is unavailable Patient Instructions Instruction Admit Date Antepartum Discharge Instructions ([facility]) May 10, 2025 9:43pm Goals Acute Goals Author Authored Date Exhibit optimal tissue perfu andrew * Exhibits adequate oxygenation and ventilation * Exhibits adequate cardiac output * Regains stable cardiac rhythm * Maintains optimal activity level * Maintains balanced intake and outputTri[facility]2024 1:14pm Preferences Type Detail Treatment Intervention Code Status: Full Code
--- OUTSIDE RECORDS SUMMARY | 2025-07-19 10:30 | XMS_ITS | Encounter Summary ---
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 [phone] Krupa Hernandez PA [address] [place], [place] [address] Postoperative follow-up; care following delivery ([facility]) Social History Tobacco UseTypesPacks/DayYears UsedDateSmoking Tobacco: Never Assessed CommentsNoSex and Gender InformationValueDate RecordedSex Assigned at Xxjnmw7609/29/2024 1:58 PM ESTLegal OibQueucd21/15/2023 6:58 PM EDTGender Identity Yaqbop5509/29/2024 1:58 PM ESTSexual WbgzclavzorYtulomvj17/21/2025 1:58 PM EST documented as of this encounter Last Filed Vital Signs Vital SignReadingTime TakenCommentsBlood Eobkstth841/80109/18/2024 10:50 AM EST Pulse--Temperature--Respiratory Rate--Oxygen Saturation--Inhaled Oxygen Concentration--Niegbj932 kg (262 lb 12.8 oz)07/19/2025 10:50 AM KLURgmunf723.6 cm (5' 4 )07/19/2025 10:50 AM ESTBody Mass Index45. 10:50 AM EST documented in this encounter Progress Notes * Suzanne Valdivia NP - 07/19/2025 10:30 AM EST Reason for Appointment: Patient ID: Pallavi Wen is a 40 y.o. female who presents for Care and Post-op Visit(1 week post c/s) Patient presents today for 1 Week Post Op Follow Up appointment. MEDICATIONS Current Outpatient Medications Medication Instructions Alcohol Swabs (Alcohol Prep Pad) 70 % pads 1 Pad, Topical, Daily, Use four times daily to check FSBS. aspirin 81 mg, Daily Blood Glucose Monitoring Suppl ([employer] Blood Glucose Meter) device 1 kit, Does not apply, 4 times daily cephalexin (KEFLEX) 500 mg, Oral, 3 times daily labetalol (NORMODYNE) 200 mg, Oral, 3 times daily metoclopramide (REGLAN) 10 mg, Oral, 3 times daily before meals, Take 1 tablet by mouth 30 minutes prior to meals 3 times daily as needed for nausea. omeprazole (PriLOSEC) [address] capsule PLEASE SEE ATTACHED FOR DETAILED DIRECTIONS pantoprazole (PROTONIX) 40 mg, Oral, Daily before breakfast, Do not crush, chew, or split. MV-Min-Fe Fum-FA-DHA ( 1 PO) Take by mouth venlafaxine XR (EFFEXOR XR) 150 mg, Daily ALLERGIES Allergies Allergen Reactions Sulfa Antibiotics Swelling and Anaphylaxis Other Reaction(s): Swelling of throat Sulfamethoxazole-Trimethoprim Unknown Topiramate Hives Wound Dressing Adhesive Rash PROBLEMS Active Ambulatory Problems Diagnosis Date Noted No Active Ambulatory Problems Resolved Ambulatory Problems Diagnosis Date Noted No Resolved Ambulatory Problems Past Medical History: Diagnosis Date Hypertension 2020 HISTORY PAST MEDICAL HISTORY SOCIAL HISTORY Past Medical History: Diagnosis Date Hypertension 2020 Social History Tobacco Use Smoking status: Not on file Smokeless tobacco: Not on file Substance Use Topics Alcohol use: Not on file Drug use: Not on file FAMILY HISTORY Family History Problem Relation Name Age of Onset Migraines Mother Alecia Wen Hypertension Father Job Wen Diabetes Maternal Grandfather Jono Sousa Breast cancer Maternal Grandmother Maldonado Lars SURGICAL HISTORY Past Surgical History: Procedure Laterality Date SECTION, LOW TRANSVERSE 07/11/2025 REVIEW OF SYSTEMS Review of Systems: Review [...] Skin: General: Skin is warm and dry. Comments: Low transverse incision healing well and well approximated without signs or symptoms or infection or erythema. Psychiatric: Mood and Affect: Mood normal. Behavior: Behavior normal. Vitals and nursing note reviewed. Exam conducted with a senior drafter present. Vitals: Estimated body mass index is 45.11 kg/m?? as calculated from the following: Height as of this encounter: 5' 4 . Weight as of this encounter: 262 lb 12.8 oz. BP: 136/80 No LMP recorded. Assessment/Plan ICD-10-CM 1. Postoperative follow-up Z09 2. care following delivery ([facility]) Z39.2 Patient presents today for a one week postop section check. Patient is doing well with minor complaints of pain. Incision has been noted as healing well with no signs and symptoms of infection. Patient reports that she was notified from L/D that she had a UTI and the hospital is sending barron prescription for UTI. She is to reach out to our office if she has any further symptoms or concerns. Follow Up: Patient is to return in 5 weeks for 6 week evaluation. Documented by Suzanne Valdivia NP on behalf of: SURESH Pa documented in this encounter Plan of Treatment DateTypeDepartmentCare Team (Latest Contact Info)Ltlyvoznyrc75/15/2025 11:30 AM ESTPostpartum Visit [facility] MESS[facility] [address] [place] [phone] Krupa Hernandez PA [address] [place] [address] documented as of this encounter Visit Diagnoses Diagnosis Postoperative follow-up Follow-up examination, following unspecified surgery care following delivery ([facility]) documented in this encounter
--- OUTSIDE RECORDS SUMMARY | 2025-07-21 08:13 | XMS_ITS | Clinical Summary ---
Author Organization [employer] Address [id number] 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 Role Phone Unavailable Primary Care Provider Unavailabl e Allergies Active AllergyReactionsCriticalityNoted DateCommentsSulfa (Sulfonamide Antibiotics)Slhguuxz40/19/2025 Medications MedicationSigDispense QuantityRefillsLast FilledStart DateEnd DateStatus omeprazole [...] Multigravida of advanced maternal age in second mpupjnibh19/03/2025Estimated Date of DeliveryCommentsYes 07/29/2025ased on Ultrasound Encounters DateTypeDepartmentCare NhjnBwubzirivjn12/11/8787Uksyke96/14/2025Travelfrom Last 3 Months Family History Medical HistoryRelationNameCommentsHypertensionFatherKidney befgaekDdhtjjQ0EP SbmhcfX9DBTnhlghwg GrandfatherBreast cancerMaternal GrandmotherRelationName StatusCommentsFatherDeceasedMaternal GrandfatherMaternal Grandmother Social [...] money to get more.Never True03/11/2025Estimated Date of CrrxnlrkLuszanbhBqg18/20/2025ased on UltrasoundSex and Gender InformationValue Date RecordedSex Assigned at BirthNot on fileLegal LtmNmrnrf74/15/2025 11:20 AM EDTGender IdentityNot on fileSexual OrientationNot on file Last Filed Vital Signs Vital SignReadingTime TakenCommentsBlood Ujfnttnp410/8303/11/2025 9:25 AM EDT Mhals940903/11/2025 9:25 AM EDTTemperature--Respiratory Rate--Oxygen Saturation-- Inhaled Oxygen Concentration--Srkhxn769.2 kg (269 lb 6.4 oz)03/11/2025 9:25 AM KDQWneavn273.6 cm (5' 4 )03/11/2025 9:25 AM EDTBody Mass Index46.24003/11/2025 9:25 AM EDT Plan of Treatment Health MaintenanceDue DateLast DoneCommentsDepression Wgbvusjem81/23/1999Adult BMI Follow Up Plan2005DTaP,Tdap and Td Vaccines (1 - Tdap)2006COVID- 19 Vaccine (2 - season)504/10/2020Influenza Fvqwixh4205/10/2025 06/15/2022, 05/23/2021dult BMI Pdcpjtyju81/11/2024Tobacco Screening Pap SmearRSV ( or age 60+ yrs) (No Doses Required)Completed Medical Devices Not on file Procedures Procedure NamePriorityDate/TimeAssociated DiagnosisCommentsUS MFM OB FOLLOW-UP, 1 VJYRJSozncij66/11/2025 3:06 PM EDT Choroid plexus cyst of fetus in miranda Multigravida of advanced maternal age in second trimester Diet controlled gestational diabetes mellitus (GDM) in second trimester Hx of essential hypertension US MFM OB FOLLOW-UP, 1 DUDMOErpjlqi99/14/2025 3:22 PM EDT Choroid plexus cyst of [...] ESTRADA : 1985 SEX: F Accession Number: [id number] ORDERING PHYSICIAN: CANDICE OCHOA REFERRING PHYSICIAN: CANDICE OCHOA Coding Procedures ? 69036: Follow-up Ultrasound, per fetus Indication , Screening for follow-up survey, AMA- Supervision of elderly, Chronic hypertension affecting , Obesity in , History OB History ? 2. Para 0 ? [id number] Maternal Assessment Physical Exam ??Height 163 cm, [...] (oz) ? 8 oz EFW by: ?Hadlock (IHX-XN-AH-FL) Extended Tibia ??49.6 mm 29w 5d 43% Eliana Software Design Analyst ? 4.4 mm CM ? 7.0 mm [...] Heart/Thorax: 4-chamber view. RVOT view. LVOT view. 6-vcfvre-qlydrpc view. Situs. Ductal arch view.Interventricular ? septum. [...] MVP measures 6.2 cm. Recommendations Please see [facility] recommendations from prior clinical and/or ultrasound report documentation. Subsequent follow up or other follow up as clinically determined by primary OB provider unless otherwise specified by [facility]. Results forwarded to ordering provider so they can follow up with the patient as necessary. Procedure Note Sam Sultana MD - 05/20/2025 NAME: URBINA ESTRADA : 1985 SEX: F Accession Number: [id number] ORDERING PHYSICIAN: CANDICE OCHOA REFERRING PHYSICIAN: CANDICE OCHOA Coding Procedures 73340: Follow-up Ultrasound, per fetus Indication , Screening for follow-up survey, AMA- Supervision of elderly, Chronic hypertension affecting , Obesity in , History OB History 2. Para 0 [id number] Maternal Assessment Physical Exam Height 163 cm, [...] EFW (oz) 8 oz EFW by: Hadlock (RWX-YT-HQ-FL) Extended Tibia 49.6 mm 29w 5d 43% Eliana Software Design Analyst 4.4 mm CM 7.0 mm 51% Nicolaides [...] Heart/Thorax: 4-chamber view. RVOT view. LVOT view. 4-qzhvvk-quqeoyl view.Situs. Ductal arch view. Interventricular septum. Great [...] MVP measures 6.2 cm. Recommendations Please see [facility] recommendations from prior clinical and/or ultrasoundreport documentation. Subsequent follow up or other follow up as clinically determined byprimary OB provider unless otherwise specified by MFM. Results forwarded to ordering provider so they can follow up with thepatient as necessary. Authorizing ProviderResult TypeResult StatusCorey R Justin DOIMG US ORDERABLES Final Result from Last 3 Months Insurance
--- OUTSIDE RECORDS SUMMARY | 2025-07-21 08:13 | XMS_ITS | Clinical Summary ---
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 Name Role Phone Unavailable Primary Care [...] InformationValueDate RecordedSex Assigned at BirthNot on fileLegal RkfVgyytz69/21/2015 4:35 PM EDTGender IdentityNot on fileSexual OrientationNot on file Last Filed Vital Signs Vital SignReadingTime TakenCommentsBlood Uftzajit792/8703/30/2016 3:03 PM EDT Lcjbw14694/22/2016 3:03 PM THWFubpffzwvzn63.7 ??C (98.1 ??F)03/30/2016 3:03 PM EDTRespiratory Wsmu212703/30/2016 3:03 PM EDTOxygen Qxbxdprbvw92%03/30/2016 3:03 PM EDTInhaled Oxygen Concentration--Zzjrtj39.4 kg (186 lb)03/30/2016 3:03 PM EDT Ztnhwa087.6 cm (5' 4 )03/30/2016 3:03 PM EDTBody Mass Index31.9303/30/2016 3:03 PM EDT Plan of Treatment Not on file
--- OUTSIDE RECORDS SUMMARY | 2025-07-21 08:13 | XMS_ITS | Clinical Summary ---
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 Role Phone Unavailable Primary Care Provider Unavailabl e Allergies Active AllergyReactionsCriticalityNoted DateCommentsSulfa AntibioticsSwelling, SfdikqfisavRwgy99/22/2016 Other Reaction(s): Swelling of throat Sulfamethoxazole-ElkiljjicwtiLedyboz84/11/9747KtdwfchsgpVcnlu17/02/2024Wound Dressing NxvquoczMrepPaf21/01/2025 Medications MedicationSigDispense QuantityRefillsLast FilledStart DateEnd DateStatus venlafaxine XR (Effexor XR) 150 MG 24 hr capsule Take 150 mg by mouth Daily4Active omeprazole (PriLOSEC) [address] capsule PLEASE SEE ATTACHED FOR DETAILED BYXHNGIYSN72/02/2025Active labetalol (Normodyne) 200 MG tablet Indications:Elevated blood pressure readingTake 1 tablet (200 mg) by mouth in the morning and 1 tablet (200 mg) in the evening and 1 tablet (200 mg) before bedtime. 90 tablet 1104/967488/6Active MV-Min-Fe Fum-FA-DHA ( 1 PO) Take by [...] tablet 1116Active cephalexin (Keflex) 500 MG capsule Indications:Urinary tract infection with hematuria, site unspecifiedTake 1 capsule (500 mg) by mouth in the morning and 1 capsule (500 mg) in the evening and 1 capsule(500 mg) before bedtime. Do all this for 7 days. 21 capsule 5Active cephalexin (Keflex) 500 MG capsule Take 500 mg by mouth in the morning and 500 mg at noon and 500 mg in the evening and 500 mg before bedtime.Discontinued HYDROmorphone (Dilaudid) 2 MG tablet Take 2 mg by mouth every 6 (six) hours if ocyccp50Discontinued phenazopyridine (Pyridium) 100 MG tablet Indications:Urinary tract [...] all this for 7 days. 14 capsule 51Expired Active Problems No known active problems Encounters DateTypeDepartmentCare LnkjBtgbuplften80/11/2025Telephone [facility] [address] [place] [address] Hina Moura [place] 07/20/2025bstract [facility] [address] [place] [address] Hina Moura [place] 07/19/2025 10:30 [place] [address] Krupa Olmstead PA Postoperative follow-up; care following delivery ([facility])07/19/2025Telephone [facility] [address] [place] [address] Hina Moura [place] 5Clinisync Result Encounter [facility]OM[facility] External Department Unsolicited Candice Anderson, DO 07/12/2025External Result Encounter [facility]OM[facility] External Department Unsolicited Candice Anderson, DO 07/12/2025bstract [facility] [address] [place] [address] Candice Anderson, DO 07/12/2025bstract [facility] [address] [place] [address] Candice Anderson, DO 5Clinisync Result Encounter NOMS External Department Unsolicited Candice Anderson, DO 07/07/2025 3:20 PM EDTRoutine [facility] [address] [place] [address] Krupa Olmstead PA 36 weeks gestation of ([facility]); Third trimester ([facility])07/07/2025bstract [facility] [address] [place] [address] Candice Anderson, 07/07/2025linisync Result Encounter NOMS External Department Unsolicited Krupa Olmstead PA 07/07/2025amboo flowsheet [facility] [address] [place] [address] Krupa Olmstead PA 07/06/2025linisync Result Encounter NOMS External Department Unsolicited Candice Anderson, DO 06/30/2025bstract [facility] [address] [place] [address] Hina Moura [place] 06/30/2025Telephone [facility] [address] [place] [address] Hina Moura [place] 06/29/2025linisync Result Encounter NOMS External Department Unsolicited Candice Anderson, DO 06/28/2025 9:40 AM EDTRoutine [facility] [address] [place] [address] Candice Anderson, DO 35 weeks gestation of ([facility]); Third trimester ([facility]); Gestational diabetes mellitus (GDM), antepartum, gestational diabetes method of control unspecified([facility]); Chronic hypertension; H/O miscarriage, currently ([facility]); UTI symptoms; Palpitations; Heartburn during , antepartum ([facility])06/28/2025External Result Encounter [facility]OMS External Department Unsolicited Candice Anderson, DO 06/28/2025amboo flowsheet [facility] [address] [place] [address] Candice Anderson, DO 06/18/2025bstract [facility] [address] [place] [address] Candice Anderson, DO 06/17/2025bstract [facility] [address] [place] [phone] Candice Anderson, DO 06/15/2025bstract [facility] [address] [place] [phone] Candice Anderson, DO 06/14/2025 11:50 AM EDTRoutine [facility] [address] [place] [address] Suzanne Valdivia, MARINA 33 weeks gestation of ([facility]); Third trimester ([facility]); Gestational diabetes mellitus (GDM), antepartum, gestational diabetes method of control unspecified([facility])06/14/2025linisync Result Encounter [facility]OM[facility] External Department Unsolicited Krupa Olmstead PA 06/14/2025amb flowsheet [facility] [address] [place] [phone] Suzanne Valdivia, MARINA 05/30/2025bstract [facility] [address] [place] [address] Candice Anderson, DO 05/30/2025bstract [facility] [address] [place] [phone] Candice Anderson, DO 05/27/2025 8:50 AM EDTRoutine [facility] [address] [place] [address] Krupa Olmstead PA Size of fetus inconsistent with dates, antepartum ([facility]) (Primary Dx); Third trimester ([facility]); 31 weeks gestation of ([facility])05/27/2025amboo flowsheet [facility] [address] [place] [address] Krupa Olmstead PA 05/20/2025bstract [facility] [address] [place] [address] Candice Anderson, 05/13/2025 8:30 AM EDTRoutine [facility] [address] [place] [address] Candice Anderson, DO 29 weeks gestation of ([facility]); Third trimester ([facility]); Gestational diabetes mellitus (GDM), antepartum, gestational diabetes method of control unspecified([facility]); Urinary tract infection without hematuria, site gsmnpsgpbti62/04/2025amboo flowsheet [facility] [address] [place] [address] Candice Anderson, DO 05/11/2025External Result Encounter NOM[facility] [...] Department Unsolicited Shaun Rebollar MD 05/04/2025bstract [facility] [address] [place] [address] Candice Anderson, DO 05/04/2025Telephone [facility] [address] [place] [address] Candice Anderson, DO 04/29/2025bstract [facility] [address] [place] [address] Candice Anderson, 04/28/2025 1:00 PM EDTRoutine [facility] [address] [place] [address] Krupa Olmstead PA 26 weeks gestation of ([facility]); Second trimester ([facility]); Urinary tract infection with hematuria, site unspecified; Yeast /20/2025amboo flowsheet [facility] [address] [place] [address] Krupa Olmstead PA 04/23/2025bstract [facility] [address] [place] [address] Candice Anderson, 04/21/2025Travelfrom Last 3 Months Family History Medical HistoryRelationNameCommentsHypertensionFatherDavid KocherDiabetes Maternal GrandfatherGary RobronBreast cancerMaternal GrandmotherJean Robron MigrainesMotherSandra KocherRelationNameStatusCommentsFatherDavid KocherAlive Maternal GrandfatherGary RobronAliveMaternal GrandmotherJean RobronAliveMother Alecia KocherAlive Social History Tobacco UseTypesPacks/DayYears UsedDateSmoking Tobacco: Never Assessed CommentsNoSex and Gender InformationValueDate RecordedSex Assigned at Jeerwn3109/29/2024 1:58 PM ESTLegal HpdLqsrwx23/15/2023 6:58 PM EDTGender Identity Gamojf8609/29/2024 1:58 PM ESTSexual RhuiyiakxefHchdbwfd64/21/2025 1:58 PM EST Last Filed Vital Signs Vital SignReadingTime TakenCommentsBlood Oxjhdokb496/80109/18/2024 10:50 AM EST Pulse--Temperature--Respiratory Rate--Oxygen Saturation--Inhaled Oxygen Concentration--Lmvmpd533 kg (262 lb 12.8 oz)07/19/2025 10:50 AM QQWAijwur615.6 cm (5' 4 )07/19/2025 10:50 AM ESTBody Mass Index45. 10:50 AM EST Plan of Treatment DateTypeDepartmentCare Team (Latest Contact Info)Nexaedhvpqa97/15/2025 11:30 AM ESTPostpartum Visit [facility] [address] [place] [phone] Krupa Olmstead PA [address] [place] [address] Health MaintenanceDue DateLast DoneCommentsHPV/Monuja0903/01/2017COVID-19 Vaccine ( season)Influenza Vaccine (#1)2025 06/15/2022, 05/23/2021ervical Cancer Cleosuaac71/03/2028Pap Smear02/10/2028 02/09/2025Pneumococcal Vaccine: Pediatrics (0 to 5 Years) and At-Risk Patients (6 to 64 Years)Aged OutNo longer eligible based on patient's age to complete this topic Procedures Procedure NamePriorityDate/TimeAssociated DiagnosisCommentsTBH GLUCOSE BLOOD Qcmcnpd6207/13/2025 5:50 AM EST ALL CBC WITH AUTO CREOCbqlefk38/04/2025 5:50 AM EST PATHOLOGY REQUEST FOR LAB TCCQEkrzhys34/03/2025 9:24 PM EST URINE CULTURE, PYVWIYXKacijou55/02/2025 5:40 PM EST HMHP URINALYSIS, WITH PMGOVGOJJKUPhvpwne60/02/2025 5:40 PM EST TBH DRUG SCREEN RAPID (URINE)Migkcsw1707/11/2025 5:40 PM EST HMHP CBC WITH PLATELET NO NULPJBYUAPBMMijhcah19/02/2025 5:19 PM EST POCT URINALYSIS CCHOOAKUZadkhvv94/29/2025 3:48 PM EDT 36 weeks gestation of ([facility]) STREP GP B CULTURE+UCZFZtslevo81/29/2025 3:30 PM EDT US OB BPP W NON-TCMKWA1507/06/2025 9:55 AM EDT US OB BPP W NON-HVZASC1606/29/2025 2:03 PM EDT URINARY TRACT INFECTION (HTRX)Ejeockf6706/28/2025 11:26 AM EDT POCT URINALYSIS AOJJJRCPEcghute45/20/2025 10:04 AM EDT 35 weeks gestation of ([facility]) Third trimester ([facility]) Gestational diabetes mellitus (GDM), antepartum, gestational diabetes method of control unspecified([facility]) US OB CVIKZH0806/14/2025 12:01 PM EDT POCT URINALYSIS HEZJXEAWEkbbmdr23/06/2025 11:49 AM EDT 33 weeks gestation of ([facility]) Third trimester ([facility]) POCT URINALYSIS BKCONBUAJaqugfb58/18/2025 8:58 AM EDT Third trimester ([facility]) POCT URINALYSIS IRIKFGTHKzihyrg22/04/2025 8:42 AM EDT 29 weeks gestation of ([facility]) Third trimester ([facility]) US RENAL VMVBXEKP41/02/2025 12:52 PM EDT NXZIWOTDNM55/01/2025 11:10 PM EDT QBAZQGDDHVV02/01/2025 11:10 PM EDT COMPREHENSIVE METABOLIC RXROTSSII96/01/2025 11:10 PM EDT CBC WITH AUTO FWRETKSVHZDLZYAV10/01/2025 11:10 PM EDT JHXVAIIBHXFSDAZ17/01/2025 11:05 PM EDT AEROBIC DAVE CHARGE (NMIC56)STAT05/10/2025 10:30 PM EDT URINALYSIS DTNOCPSYDF33/01/2025 10:30 PM EDT CULTURE, URINE, BRIZMXVMVJU75/01/2025 10:30 PM EDT URINARY TRACT INFECTION (HTRX)Kamzdzv6404/28/2025 1:20 PM EDT POCT URINALYSIS QMYZVFKNDgyivjl55/20/2025 1:15 PM EDT 26 weeks gestation of ([facility]) Second trimester ([facility]) PAP AOECLIqcoqbn31/03/2025 12:00 AM EDTfrom Last 3 Months or Most Recently Relevant to Health Maintenance Results * (ABNORMAL) TB GLUCOSE BLOOD (07/13/2025 5:50 AM EST)ComponentValueRef Range Test MethodAnalysis TimePerformed AtPathologist LqssleqjkAGLLJFU834(H)74 - 106 mg/dLTBHSpecimen (Source)Anatomical Location / LateralityCollection Method / VolumeCollection TimeReceived Time07/13/2025 5:50 AM EST07/13/2025 6:06 AM EST Narrative [facility] - 07/13/2025 6:22 AM EST Authorizing ProviderResult TypeResult StatusCorey Justin DOCLINISYNCFinal Result Performing OrganizationAddressCity/State/ZIP CodePhone Number [facility] * (ABNORMAL) ALL CBC WITH AUTO DIFF (07/13/2025 5:50 AM EST)ComponentValueRef RangeTest MethodAnalysis TimePerformed AtPathologist SignatureTBH WBC22.4(H) 4.0 - 11.0 10 3/uLTBHTBH RBC3.17(L)4.20 - 5.40 10 6/uLTBHTBH HGB8.4(L)12.0 - 16.0 g/dLTBHTBH HCT26.3(L)36.0 - 48.0 %TBHTBH MCV83.081.0 - 99.0 fLTBHTBH MCH 26.5(L)26.7 - 34.0 pgTBHTBH MCHC31.929.9 - 35.2 g/dLTBHTBH RDW14.411.0 - 15.0 %TBHTBH ZUF029299 - 450 10 3/uLTBHTBH MPV9.69.5 - 13.5 fLTBHNEUTROPHILS PERCENT AUTO88.1(H)43.0 - 75.0 %TBHLYMPHOCYTES PERCENT AUTO5.5(L)20.5 - 60.0 % TBHMONOCYTES PERCENT AUTO5.21.7 - 12.0 %TBHTBH EO %0.1(L)0.9 - 7.0 %TBH BASOPHILS PERCENT AUTO0.20.2 - 2.0 %TBHIMMATURE GRANULOCYTES PCT AUTO0.9(H)0.0 - 0.5 %TBHNEUTROPHILS ABSOLUTE AUTO19.7(H)1.4 - 6.5 10 3/uLTBHLYMPHOCYTES ABSOLUTE AUTO1.21.2 - 3.8 10 3/uLTBHMONOCYTES ABSOLUTE AUTO1.2(H)0.3 - 0.8 10 3/uLTBHTBH EO #0.00.0 - 0.7 10 3/uLTBHBASOPHILS ABSOLUTE AUTO0.00.0 - 0.1 10 3/uLTBHIMMATURE GRANULOCYTES ABS AUTO0.21(H)0.00 - 0.03 10 3/uLTBHSpecimen (Source)Anatomical Location / LateralityCollection Method / VolumeCollection TimeReceived Time07/13/2025 5:50 AM EST07/13/2025 6:06 AM EST Narrative CLINISYNC - 07/13/2025 6:12 AM EST Authorizing ProviderResult TypeResult StatusCorey Justin DOCLINISYNCFinal Result Performing OrganizationAddressCity/State/ZIP CodePhone Number CLINISYNC [facility] * PATHOLOGY REQUEST FOR LAB ERIKA (07/12/2025 9:24 PM EST)ComponentValueRef Range Test MethodAnalysis TimePerformed AtPathologist SignaturePATHOLOGY REQUEST FOR LAB CORP07/20/2025 8:50 AM [facility]trComment:See report. Scanned copy available in EMR.Specimen (Source)Anatomical Location / LateralityCollection Method / VolumeCollection TimeReceived TimeOther Topography unknown / Fxofbug1207/12/2025 9:24 PM EST07/13/2025 1:06 PM EST Narrative Authorizing ProviderResult TypeResult StatusCorey Justin DOLAB BLOOD ORDERABLES Final ResultPerforming OrganizationAddressCity/State/ZIP CodePhone Number [facility] [address] [place] [address], [facility] [address] [place] [address] * (ABNORMAL) URINE CULTURE, ROUTINE (07/11/2025 5:40 PM EST)ComponentValueRef RangeTest MethodAnalysis TimePerformed AtPathologist SignatureURINE CULTURE, ROUTINE ??Urine Culture, Routine Organism: Escherichia coli. ?? : TBHURINE CULTURE, ROUTINE*ABNORMAL*TBHURINE CULTURE, VYCMUYW75,000-50,000 colony forming units per mLTBHURINE CULTURE, ROUTINEEscherichia coli.TBHURINE CULTURE, ROUTINEOrganism: Escherichia coli. :TBHURINE CULTURE, ROUTINE*ABNORMAL*TBHURINE CULTURE, ROUTINECefazolin with an DAVE <=16 predicts susceptibility toTBHURINE CULTURE, ROUTINEthe oral agents cefaclor, cefdinir, cefpodoxime,TBHURINE CULTURE, ROUTINEcefprozil, cefuroxime, cephalexin, and loracarbef whenTBHURINE CULTURE, ROUTINEused for therapy of uncomplicated urinary tractTBHURINE CULTURE, ROUTINEinfections due to E. coli, Klebsiella pneumoniae, andTBHURINE CULTURE, ROUTINEProteus mirabilis.TBHURINE CULTURE, PNAKNEE74,000-100,000 colony forming units per mLTBHURINE CULTURE, ROUTINE ??O:ESCHCO Isolated TBHURINE CULTURE, ROUTINEPerformed at: - [facility] HospitalTBHURINE CULTURE, [id number] [place], [place] [id number] CULTURE, ROUTINELab Director: Al Salcedo PhD, Phone: [phone] CULTURE, ROUTINE Organism: ??1.1 Antibiotic ? Interpretation ? DAVE ? Status TBHURINE CULTURE, ROUTINEAMOXICILLIN/CLAVULANIC ACID S F(S)TBHURINE CULTURE, ROUTINEAmpicillin R F(R)TBHURINE CULTURE, ROUTINECefazolin S F(S)TBHURINE CULTURE, ROUTINECefepime S F(S)TBHURINE CULTURE, ROUTINECefoxitin S F(S)TBHURINE CULTURE, ROUTINECefpodoxime S F(S)TBHURINE CULTURE, ROUTINECeftriaxone S F(S) TBHURINE CULTURE, ROUTINECiprofloxacin S F(S)TBHURINE CULTURE, ROUTINEErtapenem S F(S)TBHURINE CULTURE, ROUTINEGentamicin S F(S)TBHURINE CULTURE, ROUTINE Levofloxacin S F(S)TBHURINE CULTURE, ROUTINEMeropenem S F(S)TBHURINE CULTURE, ROUTINENitrofurantoin S F(S)TBHURINE CULTURE, ROUTINETetracycline S F(S)TBH URINE CULTURE, ROUTINETobramycin S F(S)TBHURINE CULTURE, ROUTINE Trimethoprim/Sulfamethoxazole S F(S)TBHURINE CULTURE, ROUTINE Piperacillin/Tazobactam S F(S)TBHSpecimen (Source)Anatomical Location / LateralityCollection Method / VolumeCollection TimeReceived Time07/11/2025 5:40 PM EST07/12/2025 10:47 PM EST Narrative CLINISYNC - 07/15/2025 6:08 PM EST Authorizing ProviderResult TypeResult StatusCorey Justin DOLAB BLOOD ORDERABLES Final ResultPerforming OrganizationAddressCity/State/ZIP CodePhone Number [facility] * [facility] DRUG SCREEN RAPID (URINE) (07/11/2025 5:40 PM EST)ComponentValueRef Range Test MethodAnalysis TimePerformed AtPathologist SignatureCANNABINOID SCREEN URINENEGATIVENEGATIVETBHPHENCYCLIDINE SCREEN URINENEGATIVENEGATIVETBHCOCAINE SCREEN URINENEGATIVENEGATIVETBHMETHAMPHETAMINES SCREEN URINENEGATIVENEGATIVE TBHOPIATE SCREEN URINENEGATIVENEGATIVETBHAMPHETAMINE SCREEN URINENEGATIVE NEGATIVETBHBENZODIAZEPINES SCREEN URINENEGATIVENEGATIVETBHTRICYCLIC ANTIDEPRESSANT URINENEGATIVENEGATIVETBHMETHADONE SCREEN URINENEGATIVENEGATIVE TBHBARBITURATES SCREEN URINENEGATIVENEGATIVETBHOXYCODONE SCREEN URINENEGATIVE NEGATIVETBHBUPRENORPHINE SCREEN URINENEGATIVENEGATIVETBHComment: DRUG CLASS TEST SYSTEM CUT-OFF CONCENTRATIONS ARE FOLLOWS: AMP (Amphetamine): 500 ng/mL BAR (Barbiturates): 200 ng/mL BZO (Benzodiazepines): 150 ng/mL BUP (Buprenorphine): 10 ng/mL RON (Cocaine): 150 ng/mL mAMP (Methamphetamine): 500 ng/mL MTD (Methadone): 200 ng/mL OPI (Opiates): 100 ng/mL OXY (Oxycodone): 100 ng/mL PCP (Phencyclidine): 25 ng/mL THC (Cannabinoids): 50 ng/mL TCA (Trycyclic Antidepressants): 300 ng/mL Specimen (Source)Anatomical Location / LateralityCollection Method / Volume Collection TimeReceived Time07/11/2025 5:40 PM EST07/11/2025 6:02 PM EST Narrative CLINISYNC - 07/11/2025 6:14 PM EST Authorizing ProviderResult TypeResult StatusCorey Justin DOCLINISYNCFinal Result Performing OrganizationAddressCity/State/ZIP CodePhone Number [facility] * (ABNORMAL) HMHP URINALYSIS, WITH MICROSCOPIC (07/11/2025 5:40 PM EST)Component ValueRef RangeTest MethodAnalysis TimePerformed AtPathologist SignatureCOLOR URINEYELLOWYELLOWTBHCLARITY URINECLEARCLEARTBHSPECIFIC GRAVITY URINE>=1.030(A) 1.005 - 1.025TBHPH URINE5.55.0 - 9.0TBHPROTEIN URINETRACENEG/TRACE mg/dLTBH GLUCOSE URINE UANEGATIVENEGATIVE mg/dLTBHBILIRUBIN URINENEGATIVENEGATIVETBH KETONES URINETRACE(A)NEGATIVE mg/dLTBHBLOOD URINENEGATIVENEGATIVETBHNITRITE URINENEGATIVENEGATIVETBHUROBILINOGEN URINE0.20.2 - 1.0 EU/dLTBHLEUKOCYTE ESTERASE URINENEGATIVENEGATIVETBHTBH WBC0-2(A)NONE SEEN #/HPFTBHTBH RBCNONE SEEN0 - 2 #/HPFTBHBACTERIA URINELARGE(A)NONE SEEN #/HPFTBHMUCUS URINENONE SEEN NONE SEENTBHSQUAMOUS EPITHELIAL CELL URINEFEW(A)NONE/RARE #/LPFTBHCRYSTALS SEEN?Seen(A)None Seen #/HPFTBHTBH CALCIUM OXALATE CRYSTALS URINERARETBHCAST SEEN?NONE SEENNONE SEEN #/LPFTBHURINE CULTURE INDICATEDYES-LCTBHSpecimen (Source)Anatomical Location / LateralityCollection Method / VolumeCollection TimeReceived Time07/11/2025 5:40 PM EST07/12/2025 10:47 PM EST Narrative CLINISYNC - 07/12/2025 11:02 PM EST Authorizing ProviderResult TypeResult StatusCorey Justin DOCLINISYNCFinal Result Performing OrganizationAddressCity/State/ZIP CodePhone Number [facility] * (ABNORMAL) [facility] CBC WITH PLATELET NO DIFFERENTIAL (07/11/2025 5:19 PM EST) ComponentValueRef RangeTest MethodAnalysis TimePerformed AtPathologist SignatureTBH WBC13.4(H)4.0 - 11.0 10 3/uLTBHTBH RBC3.69(L)4.20 - 5.40 10 6/uL TBHTBH HGB10.1(L)12.0 - 16.0 g/dLTBHTBH HCT30.0(L)36.0 - 48.0 %TBHTBH MCV81.3 81.0 - 99.0 fLTBHTBH MCH27.426.7 - 34.0 pgTBHTBH MCHC33.729.9 - 35.2 g/dLTBH TBH RDW14.211.0 - 15.0 %TBHTBH XZZ684343 - 450 10 3/uLTBHTBH MPV9.59.5 - 13.5 fLTBHSpecimen (Source)Anatomical Location / LateralityCollection Method / VolumeCollection TimeReceived Time07/11/2025 5:19 PM EST07/11/2025 5:25 PM EST Narrative CLINISYNC - 07/11/2025 5:31 PM EST Authorizing ProviderResult TypeResult StatusCorey Justin DOCLINISYNCFinal Result Performing OrganizationAddressCity/State/ZIP CodePhone Number [facility] * (ABNORMAL) POCT urinalysis dipstick manually resulted [...] Location / LateralityCollection Method / VolumeCollection TimeReceived TimeUrine 07/07/2025 3:48 PM EDT Narrative Authorizing ProviderResult TypeResult StatusKrupa Olmstead [facility]ITAL[facility] CARE TEST ENTER/EDIT ORDERABLESFinal Result * STREP GP B CULTURE+RFLX (07/07/2025 3:30 PM EDT)ComponentValueRef RangeTest MethodAnalysis TimePerformed AtPathologist SignatureSTREP GP B CULTURE+RFLX ??Strep Gp B Culture+Rflx TBHSTREP GP B CULTURE+RFLXNegativeTBHSTREP GP B CULTURE+RFLXCenters for Disease Control and Prevention (CDC) andTBHSTREP GP B CULTURE+RFLXAmerican Congress of Obstetricians and GynecologistsTBHSTREP GP B CULTURE+RFLX(ACOG) guidelines for prevention of group BTBHSTREP GP B CULTURE+RFLXstreptococcal (GBS) disease specify co-collection ofTBHSTREP GP B CULTURE+RFLXa vaginal and rectal swab specimen to maximizeTBHSTREP GP B CULTURE+RFLXsensitivity of GBS detection. Per the CDC and ACOG,TBHSTREP GP B CULTURE+RFLXswabbing both the lower vagina and rectumTBHSTREP GP B CULTURE+RFLXsubstantially increases the yield of detectionTBHSTREP GP B CULTURE+RFLXcompared with sampling the vagina alone.TBH STREP GP B CULTURE+RFLXPenicillin G, ampicillin, or cefazolin are indicatedTBH STREP GP B CULTURE+RFLXfor intrapartum prophylaxis of GBSTBHSTREP GP B CULTURE+RFLXcolonization. Reflex susceptibility testing should beTBHSTREP GP B CULTURE+RFLXperformed prior to use of clindamycin only on GBSTBHSTREP GP B CULTURE+RFLXisolates from penicillin-allergic women who areTBHSTREP GP B CULTURE+RFLXconsidered a high risk for anaphylaxis. Treatment withTBHSTREP GP B CULTURE+RFLXvancomycin without additional testing is warranted ifTBHSTREP GP B CULTURE+RFLXresistance to clindamycin is noted.TBHSTREP GP B CULTURE+RFLX Performed at: - [facility] WhitneyTBHSTREP GP B CULTURE+[id number] [place], [place] [id number] GP B CULTURE+RFLXLab Director: Al Salcedo PhD, Phone: [phone] (Source)Anatomical Location / Laterality Collection Method / VolumeCollection TimeReceived Time07/07/2025 3:30 PM EDT 07/07/2025 9:21 PM EDT Narrative JENNANC - 07/12/2025 3:08 PM EST Authorizing ProviderResult TypeResult StatusA[facility] BLOOD ORDERABLES Final ResultPerforming OrganizationAddressCity/State/ZIP CodePhone Number CLINISYNC [facility] * US OB BPP W NON-STRESS (07/06/2025 9:55 AM EDT) Only the most recent of2 resultswithin the time period is included. Anatomical RegionLateralityModalityOtherSpecimen (Source)Anatomical Location / LateralityCollection Method / VolumeCollection TimeReceived Time07/06/2025 9:55 AM EDT Narrative 07/06/2025 9:[address] [facility] ?[address] ? [place] [address] ? Ultrasound Report ? Signed ? Patient: RUBINA,NATALIE S ?MR#: [id number] ?? : 1985 ?Acct:[id number] ?? Age/Sex: 40 / F ?ADM Date: 10/28/25 ?? Loc: [facility] ??250-1 ? Attending Dr: Candice Anderson D.O. ? Ordering Physician: Candice Anderson D.O. ?? Date of Service: 07/06/25 ?? Procedure(s): US OB BPP w non-stress ?? Accession Number(s): [id number] ? cc: Candice Anderson D.O.; Lynn Jose D.O. ? [facility] ? [address] ? [place] [address] ? Patient Name: ?? NATALIE CESPEDES ? MRN: [facility]:[id number] ? date: 1985 ?Sex: F ?? Assigned Patient Location: [facility] ?? Current Patient Location: [facility] ?? Accession/Order Number: [id number] ?? Exam Date: 07/06/2025 ??09:32 ?Report Date: [...] Dictation Location: RADIO-PC-02 ? Electronically authenticated by: [id number] ??Y ?? Date: 07/06/2025 ??09:55 ? Dictated By: ?Joan Womack M.D. ? Signed By: ?07/06/25 0957 ? DD/ 0955 ? TD/TT: ? [employer] Consultant: Procedure Note Radiology, Radiologist, - 07/06/2025 [place] [address] Ultrasound Report Signed Patient: NATALIE CESPEDES SMR#: [id number] : 1985Acct:[id number] Age/Sex: 40 / FADM Date: 07/06/25 Loc: [facility] 250-[address]: Candice Anderson D.O. Ordering Physician: Candice Anderson D.O. Date of Service: 07/06/25 Procedure(s): US OB BPP w non-stress Accession Number(s): [id number] cc: Candice Anderson D.O.; Lynn Jose D.O. [place] [id number] Patient Name: NATALIE CESPEDES MRN: [facility]:[id number] date: 1985 Sex: F Assigned Patient Location: [facility] Current Patient Location: [facility] Accession/Order Number: [id number] Exam Date: 07/06/2025 09:32 Report Date: 07/06/2025 [...] Womack M.D. 07/06/2025 9:55 AM Dictation Location: [place] [address] Electronically authenticated by: [id number] Y Date: 9:55 Dictated By: Joan Womack M.D. Signed By:07/06/25956 DD/ 4 TD/TT: [employer] Consultant: Authorizing ProviderResult TypeResult StatusCorey Justin DOCLINISYNC IMAGINGFinal Result * (ABNORMAL) URINARY TRACT INFECTION (HTRX) (06/28/2025 11:26 AM EDT) Only the most recent of2 resultswithin the time period is included. ComponentValueRef RangeTest MethodAnalysis TimePerformed AtPathologist Signature ACINETOBACTER MMPCHLIM220.961 - 24.689 ppm06/29/2025 7:56 AM EDTHealthTrackRx at LabPortACINETOBACTER BAUMANIINot Rymoaqep79.961 - 24.689 ppm06/29/2025 7:56 AM EDTHealthTrackRx at LabPortCITROBACTER RPABJHMQ482.000 - 32.015 ppm06/29/2025 7:56 AM EDTHealthTrackRx at LabPortCITROBACTER FREUNDIINot Ugcbsrxw97.000 - 32.015 ppm06/29/2025 7:56 AM EDTHealthTrackRx at LabPortENTEROBACTER AEROGENES, ALYAAXG973.000 - 32.290 ppm06/29/2025 7:56 AM EDTHealthTrackRx at LabPort ENTEROBACTER AEROGENES, CLOACAENot Ntniygkv03.000 - 32.290 ppm06/29/2025 7:56 AM EDTHealthTrackRx at LabPortENTEROCOCCUS FAECALIS, DGDCRMY719.000 - 33.043 ppm 06/29/2025 7:56 AM EDTHealthTrackRx at LabPortENTEROCOCCUS FAECALIS, FAECIUMNot Mfmpzvbx86.000 - 33.043 ppm06/29/2025 7:56 AM EDTHealthTrackRx at LabPort ESCHERICHIA COLI20.735(A)23.000 - 28.500 ppm06/29/2025 7:56 AM EDTHealthTrackRx at LabPortESCHERICHIA COLIDetected(A)23.000 - 28.500 ppm10/ 7:56 AM EDT [facility] at LabPortKLEBSIELLA PNEUMONIAE, FFRDRPY468.000 - 31.865 ppm 06/29/2025 7:56 AM EDTHealthTrackRx at LabPortKLEBSIELLA PNEUMONIAE, OXYTOCANot Szawrduc08.000 - 31.865 ppm06/29/2025 7:56 AM EDTHealthTrackRx at LabPort MORGANELLA WEFBSVTP309.961 - 24.689 ppm06/29/2025 7:56 AM EDTHealthTrackRx at LabPortMORGANELLA MORGANIINot Dqrzyzyd93.961 - 24.689 ppm06/29/2025 7:56 AM EDT [facility] at LabPortPROTEUS MIRABILIS, CQRYVMON566.000 - 28.500 ppm 06/29/2025 7:56 AM EDTHealthTrackRx at LabPortPROTEUS MIRABILIS, VULGARISNot Ztuibqjq91.000 - 28.500 ppm06/29/2025 7:56 AM EDTHealthTrackRx at [facility]Port PSEUDOMONAS RNDTSQCWVX474.000 - 31.801 ppm06/29/2025 7:56 AM EDTHealthTrackRx at LabPortPSEUDOMONAS AERUGINOSANot Zcyvbdib38.000 - 31.801 ppm06/29/2025 7:56 AM EDTHealthTrackRx at LabPortSTAPHYLOCOCCUS BHQMXS049.000 - 31.595 ppm06/29/2025 7:56 AM EDTHealthTrackRx at LabPortSTAPHYLOCOCCUS AUREUSNot Hiogeutb20.000 - 31.595 ppm06/29/2025 7:56 AM EDTHealthTrackRx at LabPortSTREPTOCOCCUS AGALACTIAE (GROUP B STREP)026.000 - 32.435 ppm06/29/2025 7:56 AM EDTHealthTrackRx at LabPortSTREPTOCOCCUS AGALACTIAE (GROUP B STREP)Not Vqiifgwc79.000 - 32.435 ppm 06/29/2025 7:56 AM EDTHealthTrackRx at LabPortCANDIDA ALBICANS, PARAPSILOSIS, UJGLRFBKUC781.000 - 30.347 ppm10/ 7:56 AM EDTHealthTrackRx at LabPort RINA ALBICANS, PARAPSILOSIS, TROPICALISNot Xfagifws60.000 - 30.347 ppm 06/29/2025 7:56 AM EDTHealthTrackRx at LabPortCANDIDA IXUUBJYQ191.000 - 31.618 ppm06/29/2025 7:56 AM EDTHealthTrackRx at LabPortCANDIDA GLABRATANot Detected 23.000 - 31.618 ppm06/29/2025 7:56 AM EDTHealthTrackRx at LabPortCANDIDA KRUSEI0 23.000 - 30.873 ppm06/29/2025 7:56 AM EDTHealth[facility]Rx at [facility] KRUSEI Not Crotcnpy26.000 - 30.873 ppm06/29/2025 7:56 AM EDTHealthTrackRx at [facility] SERRATIA YEQKOTQEUW311.000 - 31.581 ppm06/29/2025 7:56 AM EDTHealthTrackRx at [facility] HospitalSERRATIA MARCESCENSNot Tpqbxhgx06.000 - 31.581 ppm06/29/2025 7:56 AM EDT [facility] HospitalSTREPTOCOCCUS PYOGENES (GROUP A STREP)019.961 - 24.689 ppm06/29/2025 7:56 AM EDTHealthTrackRx at [facility] HospitalSTREPTOCOCCUS PYOGENES (GROUP A STREP)Not Perrleyy32.961 - 24.689 ppm06/29/2025 7:56 AM EDTHealthTrackRx at [facility] HospitalSTAPHYLOCOCCUS EPIDERMIDIS, HAEMOLYTICUS, LUGDUNENSIS, SAPROPHYTICUS (LLHTS611.961 - 24.689 ppm06/29/2025 7:56 AM EDTHealthTrackRx at LabPort STAPHYLOCOCCUS EPIDERMIDIS, HAEMOLYTICUS, LUGDUNENSIS, SAPROPHYTICUS (URINANot Qnyrqbdj61.961 - 24.689 ppm06/29/2025 7:56 AM EDTHealthTrackRx at [facility] STAPHYLOCOCCUS EPIDERMIDIS, HAEMOLYTICUS, LUGDUNENSIS, SAPROPHYTICUS (URINA0 19.961 - 24.689 ppm06/29/2025 7:56 AM EDTHealthTrackRx at LabPortSTAPHYLOCOCCUS EPIDERMIDIS, HAEMOLYTICUS, LUGDUNENSIS, SAPROPHYTICUS (URINANot Bamkxlel88.961 - 24.689 ppm06/29/2025 7:56 AM EDTHealthTrackRx at [facility] HospitalTET B, TET M26.455(A) 23.000 - 27.500 ppm06/29/2025 7:56 AM EDTHealthTrackRx at [facility] B, TET M Detected(A)23.000 - 27.500 ppm06/29/2025 7:56 AM EDTHealthTrackRx at [facility] Specimen (Source)Anatomical Location / LateralityCollection Method / Volume Collection TimeReceived BybzCrvuu94/20/2025 11:26 AM EDT1 1:41 AM EDT Narrative Authorizing ProviderResult TypeResult StatusCorey Justin DOLAB BLOOD ORDERABLES Final ResultPerforming OrganizationAddressCity/State/ZIP CodePhone Number [facility] [address] [address] * OB GROWTH (06/14/2025 12:01 PM EDT)Anatomical RegionLateralityModalityOther Specimen (Source)Anatomical Location / LateralityCollection Method / Volume Collection TimeReceived Time06/14/2025 12:01 PM EDT Narrative 06/14/2025 12:[address] [facility] ?[address] ? [place] [address] ? Ultrasound Report ? Signed ? Patient: NATALIE CESPEDES ?MR#: [id number] ?? : 1985 ?Acct:[id number] ?? Age/Sex: 40 / F ?ADM Date: 06/14/25 ?? Loc: US ? Attending Dr: Krupa Olmstead ? Ordering Physician: Krupa Olmstead ?? Date of Service: 06/14/25 ?? Procedure(s): US OB growth ?? Accession Number(s): [id number] ? cc: Krupa Olmstead; Lynn Jose D.O. ? [facility] ? [address] ? [place] [address] ? Patient Name: ?? NATALIE CESPEDES ? MRN: [facility]:[id number] ? date: 1985 ?Sex: F ?? Assigned Patient Location: ?? Current Patient Location: ?? Accession/Order Number: [id number] ?? Exam Date: 06/14/2025 ??10:58 ?Report Date: [...] Impression dictated by: Jacob Almanza Jr., D.ODamion ??06/14/2025 12:01 PM ? Dictation Location: [facility] ? Electronically authenticated by: [id number] ??Y ?? Date: 06/14/2025 ??12:01 ? Dictated By: ?Jacob Almanza M.D. ? Signed By: ?06/14/254 ? DD/ 1201 ? TD/TT: ? [employer] Consultant: Procedure Note Radiology, Radiologist, MD - 06/14/2025 [facility] [place] [id number] Ultrasound Report Signed Patient: NATALIE CESPEDES SMR#: [id number] : 1985Acct:[id number] Age/Sex: 40 / FADM Date: 06/14/25 Loc: US Attending Dr: Krupa Olmstead Ordering Physician: Krupa Olmstead Date of Service: 06/14/25 Procedure(s): US OB growth Accession Number(s): [id number] cc: Krupa Olmstead; Lynn Jose D.O. The [address] [address] Patient Name: NATALIE CESPEDES MRN: [facility]:[id number] date: 1985 Sex: F Assigned Patient Location: [place] Current Patient Location: [place] Accession/Order Number: [id number] Exam Date: 06/14/2025 10:58 Report Date: 06/14/2025 [...] dating. Impression dictated by: Jacob Almanza Jr., DDamionODamion 06/14/2025 12:01 PM Dictation Location: [facility] Electronically authenticated by: [id number] Y Date: 2:01 Dictated By: Jacob Almanza M.D. Signed By:06/14/25 1204 DD/ 1201 TD/TT: [employer] Consultant: Authorizing ProviderResult TypeResult StatusKrupa Olmstead [facility] IMAGINGFinal Result * US renal complete [...] Narrative 05/11/2025 12:55 PM EDT [facility] ?[facility] ?[address] ? [place] [address] ? Ultrasound Report ? Signed ? Patient: Natalie Cespedes S ?MR#: [id number] ?? [id number] ? : 1985 ?Acct:[id number] ? Age/Sex: 40 / F ?ADM Date: 05/10/25 ? Loc: 3E ?Room: ??9Q3887-7 ?Type: REG CLI ?? Attending Dr: Shaun [...] Procedure Note Deshaun Alanis MD - 05/11/2025 [facility] [place] [address] Ultrasound Report Signed Patient: Natalie Cespedes SMR#: [id number] : 1985Acct:[id number] Age/Sex: 40 / FADM Date: 05/10/25 Loc: Room: 4S0453-6Zoxb: REG CLI Attending Dr: Shaun Rebollar MD [...] Alanis M.D. 05/11/2025 12:52 PM Dictation Location: [place] [address] Tech: Chantelldimitri Blake Transcribed By: LAURA 05/11/25 1252 Dictated By: Deshaun Alanis II, MD 05/11/25 1252 Signed By: <Electronically signed by Deshaun Alanis II, MD inOV> 05/11/25 1252 Authorizing ProviderResult TypeResult StatusShaun Rebollar MDIMG US PROCEDURES Final Result * (ABNORMAL) CBC auto differential (05/10/2025 11:10 PM EDT)ComponentValueRef RangeTest MethodAnalysis TimePerformed AtPathologist WivduapdsSGR91.3(H)3.8 - 11.6 [CFU]/mL05/10/2025 11:25 PM [facility] CtrUNCORRECTED WHITE BLOOD COUNT19.3(H)3.8 - 11.6 10*3/uL05/10/2025 11:25 PM [facility] CtrRBC4.053.60 - 5.00 10*6/uL05/10/2025 11:25 PM [facility] EhsYBNRDKELJT45.3(L)11.8 - 15.4 g/dL05/10/2025 11:25 PM EDT [facility] GxwVCCXPTCYIU09.0(L)34.0 - 46.4 %05/10/2025 11:25 PM [facility] HugTLG05.480 - 100 fL05/10/2025 11:25 PM EDT [facility] EujPFQ03.924.7 - 34.3 pg05/10/2025 11:25 PM EDT [facility] QomRUKS80.232.0 - 35.0 g/dL05/10/2025 11:25 PM EDT [facility] CtrRED CELL DISTRIBUTION WIDTH, RDW14.611.9 - 15.3 %05/10/2025 11:25 PM [facility] CtrPLATELET BPCFQ308485 - 450 10*3/uL05/10/2025 11:25 PM [facility] CtrMEAN PLATELET VOLUME, MPV7.36.3 - 10.7 fL05/10/2025 11:25 PM [facility] CtrNEUTROPHILS, %91.2. %05/10/2025 11:25 PM [facility] LYMPHOCYTES, %4.8. %05/10/2025 11:25 PM [facility] MONOCYTE/MACROPHAGE, %3.2. %05/10/2025 11:25 PM [facility] CtrEOSINOPHILS, %0.4. %05/10/2025 11:25 PM [facility] BASOPHILS, %0.4. %05/10/2025 11:25 PM [facility] CtrNRBC0.1 0 - 0.5 /100{WBC}05/10/2025 11:25 PM [facility] QLLTABOPUBQ42.6(H)1.8 - 7.7 10*3/uL05/10/2025 11:25 PM [facility] CtrLYMPHOCYTES0.9(L)1.00 - 4.8 10*3/uL05/10/2025 11:25 PM [facility] CtrMONOCYTES0.60.0 - 0.8 10*3/uL05/10/2025 11:25 PM EDT [facility] CtrEOSINOPHILS0.10.0 - 0.45 10*3/uL05/10/2025 11:[facility] CtrBASOPHILS0.10.0 - 0.2 10*3/uL05/10/2025 11:25 PM [facility] CtrSpecimen (Source)Anatomical Location / LateralityCollection Method / VolumeCollection TimeReceived TimeBlood (Blood)05/10/2025 11:10 PM EDT05/10/2025 11:18 PM EDT Narrative Authorizing ProviderResult TypeResult StatusShaun Rebollar MDLAB BLOOD ORDERABLESFinal ResultPerforming OrganizationAddressCity/State/ZIP CodePhone Number [facility] [address] [place] [address], [facility] [address] [place] [address] * Lipase (05/10/2025 11:10 PM EDT)ComponentValueRef RangeTest MethodAnalysis TimePerformed AtPathologist KvteqhpwyNXBTGV23.011.0 - 82.0 U/L05/10/2025 11:45 PM [facility] CtrSpecimen (Source)Anatomical Location / LateralityCollection Method / VolumeCollection TimeReceived TimeOther Topography unknown / Bwfqkwl6005/10/2025 11:10 PM EDT05/10/2025 11:18 PM EDT Narrative Authorizing ProviderResult TypeResult StatusShaun MONTILLA BLOOD ORDERABLESFinal ResultPerforming OrganizationAddressCity/State/ZIP CodePhone Number [facility] [address] [place] [address], [facility] [address] [place] [address] * Amylase (05/10/2025 11:10 PM EDT)ComponentValueRef RangeTest MethodAnalysis TimePerformed AtPathologist UuedpjbqhDFHIFVU3434 - 103 U/L05/10/2025 11:45 PM [facility] CtrSpecimen (Source)Anatomical Location / LateralityCollection Method / VolumeCollection TimeReceived TimeOther Topography unknown / Iuhimqr0505/10/2025 11:10 PM EDT05/10/2025 11:18 PM EDT Narrative Authorizing ProviderResult TypeResult StatusShaun MONTILLA BLOOD ORDERABLESFinal ResultPerforming OrganizationAddressCity/State/ZIP CodePhone Number [facility] [address] [place] [address], [facility] [address] [place] [address] * (ABNORMAL) Comprehensive metabolic panel (05/10/2025 11:10 PM EDT)Component ValueRef RangeTest MethodAnalysis TimePerformed AtPathologist SignatureGlucose 111(H)70 - 100 mg/dL05/10/2025 11:45 PM [facility] Comment: Random Glucose Reference Range is dependent on time and content of last meal. Glucose of more than 200 mg/dL in a nonstressed, ambulatory subject supports the diagnosis of Diabetes Mellitus. ADA recommended reference range SJB334 - 25 mg/dL05/10/2025 11:45 PM [facility] CtrCREATININE 0.680.60 - 1.20 mg/dL05/10/2025 11:45 PM [facility] ESTIMATED GFR>60. 11:45 PM [facility] HstLxkpac520 136 - 145 mmol/L05/10/2025 11:45 PM [facility] CtrPotassium, Bld3.93.5 - 5.1 mmol/L05/10/2025 11:45 PM [facility] Kndnevmm25995 - 107 mmol/L05/10/2025 11:45 PM [facility] Carbon Kyiqdmb85.3(L)21.0 - 31.0 mmol/L05/10/2025 11:45 PM [facility] CtrAnion Gap14.66.0 - 15.009 11:45 PM [facility] CtrCalcium9.18.6 - 10.3 mg/dL05/10/2025 11:45 PM [facility] CtrTOTAL PROTEIN6.3(L)6.4 - 8.9 g/dL05/10/2025 11:45 PM [facility] CtrALBUMIN LEVEL3.63.5 - 5.7 g/dL05/10/2025 11:45 PM EDT [facility] CtrGLOBULIN2.7g/dL05/10/2025 11:45 PM [facility] CtrALBUMIN/GLOBULIN RATIO1.309 11:45 PM [facility] CtrBILIRUBIN,TOTAL0.40.3 - 1.0 mg/dL05/10/2025 11:45 PM EDT [facility] CtrASPARTATE AMINO WVXHTQJBQMF5738 - 39 U/L05/10/2025 11:45 PM [facility] CtrALANINE TUHTHICYBWOGUJJU944 - 52 U/L 05/10/2025 11:45 PM [facility] CtrALKALINE MYGPVJGVCZC9509 - 104 U/L05/10/2025 11:45 PM [facility] CtrCREATININE CLR CALC QVBVLLET721.8705/10/2025 11:45 PM [facility] CtrSpecimen (Source)Anatomical Location / LateralityCollection Method / VolumeCollection TimeReceived TimeOtherTopography unknown / Jtkfbbt7605/10/2025 11:10 PM EDT 05/10/2025 11:18 PM EDT Narrative Authorizing ProviderResult TypeResult StatusShaun Rebollar MDLAB BLOOD ORDERABLESFinal ResultPerforming OrganizationAddressCity/State/ZIP CodePhone Number [facility] [address] [facility] [place] [address], [place] [facility] [address] [place] [address] * fibronectin (05/10/2025 11:05 PM EDT)ComponentValueRef RangeTest Method Analysis TimePerformed AtPathologist SignatureFETAL FIBRONECTINNegative Krbwrlkc90/02/2025 12:02 AM [facility] CtrSpecimen (Source) Anatomical Location / LateralityCollection Method / VolumeCollection Time Received TimeOtherTopography unknown / Mjsvotm9405/10/2025 11:05 PM EDT 05/10/2025 11:19 PM EDT Narrative [facility] - 05/11/2025 12:02 AM EDT Comment patients 22 - 34 6/7 weeks prior to vaginal exam Authorizing ProviderResult TypeResult StatusShaun Rebollar MDLAB BODY FLUIDS AND STOOLS ORDERABLESFinal ResultPerforming OrganizationAddressCity/State/ZIP Code Phone Number [facility] [address] [place] [address], [facility] [address] [place] [address] * (ABNORMAL) AEROBIC DAVE CHARGE (NMIC56) (05/10/2025 10:30 PM EDT)ComponentValue Ref RangeTest MethodAnalysis TimePerformed AtPathologist SignatureAMIKACIN<16 (S)05/13/2025 7:51 AM [facility] CtrAMOXACILLIN/K CLAVULANATE<8/4(S)05/13/2025 7:51 AM [facility] AMPICILLIN>16(R)05/13/2025 7:51 AM [facility] AMPICILLIN/EFXGFZXAZ05/8(I)05/13/2025 7:51 AM [facility] CtrAZTREONAM<4(S)05/13/2025 7:51 AM [facility] CtrCEFAZOLIN <2(S)05/13/2025 7:51 AM [facility] CtrCEFEPIME<2(S) 05/13/2025 7:51 AM [facility] CtrCEFTAZIDIME<1(S)05/13/2025 7:51 AM [facility] CtrCEFTAZIDIME/AVIBACTAM<4(S)05/13/2025 7:51 AM [facility] CtrCEFTOLOZANE/TAZOBACTAM<2(S) 05/13/2025 7:51 AM [facility] CtrCEFTRIAXONE<1(S)05/13/2025 7:51 AM [facility] CtrCEFUROXIME<4(S)05/13/2025 7:51 AM [facility] CtrCIPROFLOXACIN<0.25(S)05/13/2025 7:51 AM [facility] CtrERTAPENEM<0.5(S)05/13/2025 7:51 AM [facility] CtrGENTAMICIN<2(S)05/13/2025 7:51 AM [facility] CtrLEVOFLOXACIN<0.5(S)05/13/2025 7:51 AM [facility] CtrMEROPENEM<1(S)05/13/2025 7:51 AM [facility] MEROPENEM/VABORBACTAM<2(S)05/13/2025 7:51 AM [facility] NITROFURANTOIN<32(S)05/13/2025 7:51 AM [facility] PIPERACILLIN/TAZOBACTAM<8(S)05/13/2025 7:51 AM [facility] CtrTETRACYCLINE<4(S)05/13/2025 7:51 AM [facility] TIGECYCLINE<2(S)05/13/2025 7:51 AM [facility] CtrTOBRAMYCIN <2(S)05/13/2025 7:51 AM [facility] TRIMETHOPRIM/SULFAMETHOXAZOLE<0.5/9.5(S)05/13/2025 7:51 AM [facility] CtrSpecimen (Source)Anatomical Location / Laterality Collection Method / VolumeCollection TimeReceived TimeUrineUrine specimen obtained by clean catch procedure / Gckrhyw0205/10/2025 10:30 PM EDT05/10/2025 10:55 PM EDTComment:Clean-Voided Midstream Narrative Authorizing ProviderResult TypeResult StatusShaun Rebollar MDFIRELANDSFinal ResultPerforming OrganizationAddressCity/State/ZIP CodePhone Number [facility] [address] [place] [address], [facility] [address] [place] [address] * (ABNORMAL) Urinalysis with reflex microscopic (05/10/2025 10:30 PM EDT) ComponentValueRef RangeTest MethodAnalysis TimePerformed AtPathologist SignatureCOLOR,OASWCFfeuetImeasz99/01/2025 10:59 PM [facility] CtrAPPEARANCE,URINETurbid(AA)Clear05/10/2025 10:59 PM [facility] CtrSPECIFICY GRAVITY,URINE1.0221.001 - 1.96377 10:59 PM [facility] CtrPH,URINE5.55.0 - 9.009 10:59 PM [facility] CtrLEUKOCYTE ESTERASE,URINE4+Wrqpntsu84/01/2025 10:59 PM [facility] CtrNITRITE,URINENegativeNegative 05/10/2025 10:59 PM [facility] CtrPROTEIN,PPWSZ961Ysfkrtpv mg/dL05/10/2025 10:59 PM [facility] CtrGLUCOSE,URINE (UA) NormalNormal mg/dL05/10/2025 10:59 PM [facility] KETONES,URINE2+Vhtgumlx42/01/2025 10:59 PM [facility] UROBILINOGEN,URINENormalNormal mg/dL05/10/2025 10:59 PM [facility] CtrBILIRUBIN,BISKEUwlpocoqZdvfpuui17/01/2025 10:59 PM [facility] CtrOCCULT BLOOD,URINE2+Oxjuktrc85/01/2025 10:59 PM EDT [facility] CtrRBC,OGGFS56-842 - 4 [HPF]05/10/2025 11:13 PM EDT [facility] CtrWBC,URINEInnumerable0 - 4 [HPF]05/10/2025 11:13 PM [facility] CtrWBC CLUMP, URINEManyNone Seen [LPF] 05/10/2025 11:13 PM [facility] CtrSQUAMOUS EPITHELIAL CELL,URINE1-20 - 2 [HPF]05/10/2025 11:13 PM [facility] BACTERIA,URINE2+None Seen [HPF]05/10/2025 11:13 PM [facility] CtrHYALINE CASTS,URINENone0 - 8 [LPF]05/10/2025 11:13 PM [facility] CtrMUCUS,URINE4+(AA)[LPF]05/10/2025 11:13 PM [facility] CtrSpecimen (Source)Anatomical Location / Laterality Collection Method / VolumeCollection TimeReceived YelvJztkn41/01/2025 10:30 PM EDT05/10/2025 10:55 PM EDT Narrative [facility] - 05/10/2025 11:13 PM EDT Comment c/o urinary symptoms or increased blood pressure Name Collection Type:: Clean-Voided Midstream Authorizing ProviderResult TypeResult StatusShaun MONTILLA URINE ORDERABLESFinal ResultPerforming OrganizationAddressCity/[facility] BraseltonPhone Number [facility] [address] [place] [address], [facility] [address] [place] [address] * Urine culture (05/10/2025 10:30 PM EDT)ComponentValueRef RangeTest Method Analysis TimePerformed AtPathologist SignatureFR ORGANISMEscherichia coli 05/13/2025 7:51 AM [facility] CtrCOLONY COUNT>100,000 05/13/2025 7:51 AM [facility] CtrSpecimen (Source) Anatomical Location / LateralityCollection Method / VolumeCollection Time Received TimeUrineUrine specimen obtained by clean catch procedure / Unknown 05/10/2025 10:30 PM EDT05/10/2025 10:55 PM EDTComment:Clean-Voided Midstream Narrative Authorizing ProviderResult TypeResult StatusShaun MONTILLA MICROBIOLOGY - GENERAL ORDERABLESFinal ResultPerforming OrganizationAddressCity/State/ZIP Code Phone Number [facility] [address] [place] [address], [facility] [address] [place] [address] * Pap Smear (02/09/2025 12:00 AM EDT)Specimen (Source)Anatomical Location / LateralityCollection Method / VolumeCollection TimeReceived TimeSwabCervical swab / Unknown Narrative Authorizing ProviderResult TypeResult StatusAmy Ishan CASTANEDA CYTOLOGY ORDERABLES Final ResultPerforming OrganizationAddressCity/State/ZIP CodePhone Number EXTERNAL LAB from Last 3 Months or Most Recently Relevant to Health Maintenance Insurance
--- OUTSIDE RECORDS SUMMARY | 2025-07-21 08:14 | XMS_ITS | Encounter Summary ---
Author Organization [facility] Address [address] [place] [address] [address] Care Team Providers Care Crepe Sole Scourer Name Role Phone Unavailable Primary Care Provider Unavailabl e Encounter Details DateTypeDepartmentCare Team (Latest Contact Info)Brhanbpxyma02/29/2025amboo flowsheet [facility] MESSINA [address] [place] [address] Krupa Hernandez PA [address] [place] [address] Dr [place], [facility] Social History Tobacco UseTypesPacks/DayYears UsedDateSmoking Tobacco: Never Assessed CommentsYesSex and Gender InformationValueDate RecordedSex Assigned at Fxcdqx7209/29/2024 1:58 PM ESTLegal MedVacvis57/15/2023 6:58 PM EDTGender Identity Joyicc5409/29/2024 1:58 PM ESTSexual LseadjfnluoHxisjayv42/21/2025 1:58 PM EST documented as of this encounter Plan of Treatment DateTypeDepartmentCare Team (Latest Contact Info)Jifkiqxzvpc18/15/2025 11:30 AM ESTPostpartum Visit [facility] MESSINA [address] [place] [address] Krupa Hernandez, PA [address] [place] [address] Dr [place], [facility]11 documented as of this encounter Visit Diagnoses Not on filedocumented in this encounter
--- OUTSIDE RECORDS SUMMARY | 2025-07-21 08:14 | XMS_ITS | Encounter Summary ---
Author Organization [facility] Address [address] [facility] [place] [address] Care Team Providers Care Accounting Machine Servicer Name Role Phone Unavailable Primary Care Provider Unavailabl e Encounter Details DateTypeDepartmentCare Team (Latest Contact Info)Xinocfzoilm22/11/2025bstract [facility] MESSINA [address] [place] [address] Hina Moura [place] Social History Tobacco UseTypesPacks/DayYears UsedDateSmoking Tobacco: Never Assessed CommentsNoSex and Gender InformationValueDate RecordedSex Assigned at Gxmrba9109/29/2024 1:58 PM ESTLegal LesQncipy02/15/2023 6:58 PM EDTGender Identity Excbpm1009/29/2024 1:58 PM ESTSexual WopfjqtesjxAepnbvsh28/21/2025 1:58 PM EST documented as of this encounter Plan of Treatment DateTypeDepartmentCare Team (Latest Contact Info)Voxmbowucvx33/15/2025 11:30 AM ESTPostpartum Visit [facility] [address] [place] [address] Krupa Hernandez PA [address] [place], [place] [id number] documented as of this encounter Visit Diagnoses Not on filedocumented in this encounter
--- OUTSIDE RECORDS SUMMARY | 2025-07-21 08:15 | XMS_ITS | Encounter Summary ---
Author Organization [facility] Address [address] [facility] [place] [address] Care Team Providers Care White Metal Caster Name Role Phone Unavailable Primary Care Provider Unavailabl e Encounter Details DateTypeDepartmentCare Team (Latest Contact Info)Uqziaezxmee26/11/2025Telephone [facility] [address] [place] [address] Hina Moura MA Social History Tobacco UseTypesPacks/DayYears UsedDateSmoking Tobacco: Never Assessed CommentsNoSex and Gender InformationValueDate RecordedSex Assigned at Voblto9709/29/2024 1:58 PM ESTLegal ZijObqlhg98/15/2023 6:58 PM EDTGender Identity Vqnxsu8909/29/2024 1:58 PM ESTSexual LryqszbknfwGkjurghc33/21/2025 1:58 PM EST documented as of this encounter Miscellaneous Notes * Telephone Encounter - Hina Moura MA - 07/20/2025 2:23 PM EST Hi, my name is Pallavi Wen. I just had a question about my C section wound. I had a csection last Saturday and got it checked out yesterday and everything was good. But last night it started like leaking pretty significantly. So I just wanted to see if that was normal. If you could call me back myNumbers [phone]. Thank you, sampson. [facility] for pt to return call documented in this encounter Plan of Treatment DateTypeDepartmentCare Team (Latest Contact Info)Mcdrcxntfkg96/15/2025 11:30 AM ESTPostpartum Visit [facility] Sree MESSINA [address] [place] [address] [place] [address] Krupa Hernandez PA [address] [facility] [address] [place], [place] [id number] documented as of this encounter Visit Diagnoses Not on filedocumented in this encounter
--- OUTSIDE RECORDS SUMMARY | 2025-07-21 08:16 | XMS_ITS | Encounter Summary ---
Author Organization [facility] Address [address] [facility] [place] [address] Care Team Providers Care Aviation Technician Name Role Phone Unavailable Primary Care Provider Unavailabl e Encounter Details DateTypeDepartmentCare Team (Latest Contact Info)Rncyzvvughx37/02/2025linisync Result Encounter NOMS External Department Unsolicited Greg Anderson DO [address] [facility] [address] [place], [facility]11 Social History Tobacco UseTypesPacks/DayYears UsedDateSmoking Tobacco: Never Assessed CommentsYesSex and Gender InformationValueDate RecordedSex Assigned at Ykkavn0709/29/2024 1:58 PM ESTLegal HqcBrbjzg02/15/2023 6:58 PM EDTGender Identity Yzgmlu8309/29/2024 1:58 PM ESTSexual RpeezvvmyicTgpusqly23/21/2025 1:58 PM EST documented as of this encounter Plan of Treatment DateTypeDepartmentCare Team (Latest Contact Info)Jaiglrzrqck98/15/2025 11:30 AM ESTPostpartum Visit [facility] Sree OBPAULO [address] [place] [address] Krupa Hernandez PA [address] [facility] [address] [place], [facility]11 documented as of this encounter Procedures Procedure NamePriorityDate/TimeAssociated DiagnosisCommentsURINE CULTURE, MHALDATVfctato77/02/2025 5:40 PM EST [facility] DRUG SCREEN RAPID (URINE)Hdpzomf5007/11/2025 5:40 PM EST [facility] URINALYSIS, WITH QNHXOKJDKHQFhkigya02/02/2025 5:40 PM EST [facility] CBC WITH PLATELET NO ZAMPKLCWPIVYPencqtx13/02/2025 5:19 PM EST documented in this encounter Results * (ABNORMAL) URINE CULTURE, ROUTINE (07/11/2025 5:40 PM EST)ComponentValueRef RangeTest MethodAnalysis TimePerformed AtPathologist SignatureURINE CULTURE, ROUTINE ??Urine Culture, Routine Organism: Escherichia coli. ?? : TBHURINE CULTURE, ROUTINE*ABNORMAL*TBHURINE CULTURE, GOGFQBU95,000-50,000 colony forming units per mLTBHURINE CULTURE, ROUTINEEscherichia coli.TBHURINE CULTURE, ROUTINEOrganism: Escherichia coli. :TBHURINE CULTURE, ROUTINE*ABNORMAL*TBHURINE CULTURE, ROUTINECefazolin with an DAVE <=16 predicts susceptibility toTBHURINE CULTURE, ROUTINEthe oral agents cefaclor, cefdinir, cefpodoxime,TBHURINE CULTURE, ROUTINEcefprozil, cefuroxime, cephalexin, and loracarbef whenTBHURINE CULTURE, ROUTINEused for therapy of uncomplicated urinary tractTBHURINE CULTURE, ROUTINEinfections due to E. coli, Klebsiella pneumoniae, andTBHURINE CULTURE, ROUTINEProteus mirabilis.TBHURINE CULTURE, JUKCOWZ48,000-100,000 colony forming units per mLTBHURINE CULTURE, ROUTINE ??O:ESCHCO Isolated TBHURINE CULTURE, ROUTINEPerformed at: - [facility]We[facility] HospitalTBHURINE CULTURE, [address]IN[address] [place], [place] [address]ZWAGODIX CULTURE, ROUTINELab Director: Al Salcedo PhD, Phone: [phone] CULTURE, ROUTINE Organism: ??1.1 Antibiotic ? Interpretation ? DAVE ? Status TBHURINE CULTURE, ROUTINEAMOXICILLIN/CLAVULANIC ACID S F(S)TBHURINE CULTURE, ROUTINEAmpicillin R F(R)TBHURINE CULTURE, ROUTINECefazolin S F(S)TBHURINE CULTURE, ROUTINECefepime S F(S)TBHURINE CULTURE, ROUTINECefoxitin S F(S)TBH URINE CULTURE, ROUTINECefpodoxime S F(S)TBHURINE CULTURE, ROUTINECeftriaxone S F (S)TBHURINE CULTURE, ROUTINECiprofloxacin S F(S)TBHURINE CULTURE, ROUTINE Ertapenem S F(S)TBHURINE CULTURE, ROUTINEGentamicin S F(S)TBHURINE CULTURE, ROUTINELevofloxacin S F(S)TBHURINE CULTURE, ROUTINEMeropenem S F(S)TBHURINE CULTURE, ROUTINENitrofurantoin S F(S)TBHURINE CULTURE, ROUTINETetracycline S F (S)TBHURINE CULTURE, ROUTINETobramycin S F(S)TBHURINE CULTURE, ROUTINE Trimethoprim/Sulfamethoxazole S F(S)TBHURINE CULTURE, ROUTINE Piperacillin/Tazobactam S F(S)TBHSpecimen (Source)Anatomical Location / LateralityCollection Method / VolumeCollection TimeReceived Time07/11/2025 5:40 PM EST07/12/2025 10:47 PM EST Narrative [facility] - 07/15/2025 6:08 PM EST Authorizing ProviderResult TypeResult StatusCorey Justin DOLAB BLOOD ORDERABLES Final ResultPerforming OrganizationAddressCity/State/ZIP CodePhone Number [facility] * (ABNORMAL) [facility] URINALYSIS, WITH MICROSCOPIC (07/11/2025 [...] Performing OrganizationAddressCity/State/ZIP CodePhone Number [facility] * [facility] DRUG SCREEN RAPID (URINE) (07/11/2025 [...] Justin DOCLINISYNCFinal Result Performing OrganizationAddressCity/State/ZIP CodePhone Number JOSE TB * (ABNORMAL) HP CBC WITH PLATELET NO DIFFERENTIAL (07/11/2025 5:19 PM EST) ComponentValueRef RangeTest MethodAnalysis TimePerformed AtPathologist SignatureTBH WBC13.4(H)4.0 - 11.0 10 3/uLTBHTBH RBC3.69(L)4.20 - 5.40 10 6/uL TBHTBH HGB10.1(L)12.0 - 16.0 g/dLTBHTBH HCT30.0(L)36.0 - 48.0 %TBHTBH MCV81.3 81.0 - 99.0 fLTBHTBH MCH27.426.7 - 34.0 pgTBHTBH MCHC33.729.9 - 35.2 g/dLTBH TBH RDW14.211.0 - 15.0 %TBHTBH YAY343472 - 450 10 3/uLTBHTBH MPV9.59.5 - 13.5 fLTBHSpecimen (Source)Anatomical Location / LateralityCollection Method / VolumeCollection TimeReceived Time07/11/2025 5:19 PM EST07/11/2025 5:25 PM EST Narrative [facility] - 07/11/2025 5:31 PM EST Authorizing ProviderResult TypeResult StatusCorey Justin DOCLINISYNCFinal Result Performing OrganizationAddressCity/State/ZIP CodePhone Number JOSE [facility] documented in this encounter Visit Diagnoses Not on filedocumented in this encounter
--- OUTSIDE RECORDS SUMMARY | 2025-07-21 08:16 | XMS_ITS | Encounter Summary ---
Author Organization [facility] Address [address] [place] [address] Care Team Providers Care Partridge Farmer Name Role Phone Unavailable Primary Care Provider Unavailabl e Encounter Details DateTypeDepartmentCare Team (Latest Contact Info)Qkuzqsyozni25/21/2025linisync Result Encounter NOMS External Department Unsolicited Candice Anderson DO [address] [facility] [address] [place], [facility]11 Social History Tobacco UseTypesPacks/DayYears UsedDateSmoking Tobacco: Never Assessed CommentsYesSex and Gender InformationValueDate RecordedSex Assigned at Xqgydl2109/29/2024 1:58 PM ESTLegal FikYxulzl71/15/2023 6:58 PM EDTGender Identity Hbvwba3309/29/2024 1:58 PM ESTSexual FbeflqgskfnMaktkrhv51/21/2025 1:58 PM EST documented as of this encounter Plan of Treatment DateTypeDepartmentCare Team (Latest Contact Info)Ixxnsunrrap28/15/2025 11:30 AM ESTPostpartum Visit [facility] OBGYN [address] [facility] [place] [address] Krupa Hernandez PA [address] [facility] [address] [place], [facility]11 documented as of this encounter Procedures Procedure NamePriorityDate/TimeAssociated DiagnosisCommentsUS OB BPP W NON-FFQSHR2306/29/2025 2:03 PM EDT documented in this encounter Results * US OB BPP W NON-STRESS (06/29/2025 2:03 PM EDT)Anatomical Region LateralityModalityOtherSpecimen (Source)Anatomical Location / Laterality Collection Method / VolumeCollection TimeReceived Time06/29/2025 2:03 PM EDT Narrative 06/29/2025 2:05 PM EDT [facility] ?[address] ? [place] [address] ? Ultrasound Report ? Signed Patient: PALLAVI WEN S ?MR#: [id number] : 1985 ?Acct:[id number] Age/Sex: 40 / F ?ADM Date: 06/29/25 Loc: US Attending Dr: Candice Anderson D.O. Ordering Physician: Candice Anderson D.O. Date of Service: 06/29/25 Procedure(s): OB BPP w non-stress Accession Number(s): [id number] cc: Candice Anderson D.O.; Lynn Jose D.O. ? [facility] ? [address] ? [place] [address] ? Patient Name: PALLAVI WEN MRN: [facility]:[id number] ? date: 1985 ?Sex: F Assigned Patient Location: [facility] Current Patient Location: Accession/Order Number: [id number] Exam Date: 06/29/2025 ??09:25 ?Report Date: 06/29/2025 ??14:03 At the request of: CANDICE ??GABRIELA ??DO Procedure: ??US OB BPP w non-stress BIOPHYSICAL PROFILE: CLINICAL INFORMATION: CHRONIC HYPERTENSION I10 COMPARISON: 06/14/2025 OB growth There is a single live intrauterine gestation in cephalic presentation. ??The gestational age is 35 weeks 5 days. ??The heart rate measures 132 beats per minute. ??Incidental note is made of moderate urinary bladder distention. FINDINGS: TONE: 1 or more episodes of activity extension and flexion of extremity or opening and closing of the hand ?[Y] ? 2/2 GROSS BODY MOVEMENTS: 3 or more discrete body or limb movements ?[Y] ? 2/2 BREATHING MOVEMENTS: 1 or more episodes of breathing lasting at least 30 seconds ? [Y] ? 2/2 MERCEDES: A single deepest vertical pocket of amniotic fluid greater than 2 cm [Y] ? 2/2 ?MERCEDES: 21.2 cm. ??The 95th percentile is 24.9 cm. Total score: ? 8/ US/ OB BPP w non-stress IMPRESSION: NORMAL BIOPHYSICAL PROFILE DISTENDED URINARY BLADDER. Impression dictated by: Joan Womack M.D. ??06/29/2025 2:03 PM Dictation Location: [place] [address] Electronically authenticated by: [id number] ??Y ?? Date: 06/29/2025 ??14:03 Dictated By: ?Joan Womack M.D. Signed By: ?06/29/25 1405 DD/ 1403 TD/TT: ? Group Therapist: Procedure Note Radiology, Radiologist, - 07/20/2025 [place] [address] Ultrasound Report Signed Patient: PALLAVI WEN [facility]#: [id number] : 1985Acct:[id number] Age/Sex: 40 / FADM Date: 06/29/25 Loc: US Attending Dr: Candice Anderson D.O. Ordering Physician: Candice Anderson D.O. Date of Service: 06/29/25 Procedure(s): OB BPP w non-stress Accession Number(s): [id number] cc: Candice Anderson D.O.; Lynn Jose D.O. [place] [id number] Patient Name: PALLAVI WEN MRN: [facility]:[id number] date: 1985 Sex: F Assigned Patient Location: [facility] Current Patient Location: Accession/Order Number: [id number] Exam Date: 06/29/2025 09:25 Report Date: 06/29/2025 14:03 At the request of: CANDICE ANDERSON DO Procedure: US OB BPP w non-stress BIOPHYSICAL PROFILE: CLINICAL INFORMATION: CHRONIC HYPERTENSION I10 COMPARISON: 06/14/2025 OB growth There is a single live intrauterine gestation in cephalic presentation.The gestational age is 35 weeks 5 days. The heart rate measures 132beats per minute. Incidental note is made of moderate urinary bladder distention. FINDINGS: TONE: 1 or more episodes of activity extension and flexion offetal extremity or opening and closing of the hand [Y] 2/2 GROSS BODY MOVEMENTS: 3 or more discrete body or limb movements [Y]2/2 BREATHING MOVEMENTS: 1 or more episodes of breathing lastingat least 30 seconds [Y] 2/2 MERCEDES: A single deepest vertical pocket of amniotic fluid greater than 2cm [Y] 2/2 MERCEDES: 21.2 cm. The 95th percentile is 24.9 cm. Total score: 8/8 US/US OB BPP w non-stress IMPRESSION: NORMAL BIOPHYSICAL PROFILE DISTENDED URINARY BLADDER. Impression dictated by: Joan Womack M.D. 06/29/2025 2:03 PM Dictation Location: [place] [address] Electronically authenticated by: [id number] Y Date: 4:03 Dictated By: Joan Womack M.D. Signed By:06/29/25 1405 DD/ 140 TD/TT: Group Therapist: Authorizing ProviderResult TypeResult StatusCorereba Anderson DOCLINISYNC IMAGINGFinal Result documented in this encounter Visit Diagnoses Not on filedocumented in this encounter
--- OUTSIDE RECORDS SUMMARY | 2025-07-21 08:16 | XMS_ITS | Encounter Summary ---
Author Organization [facility] Address [address] [facility] [place] [address] Care Team Providers Care Biofuels Plant Superintendent Name Role Phone Unavailable Primary Care Provider Unavailabl e Encounter Details DateTypeDepartmentCare Team (Latest Contact Info)Icwpgwyllqz53/10/2025Telephone [facility] MESSINA [address] [place] [address] Hina Moura MA Social History Tobacco UseTypesPacks/DayYears UsedDateSmoking Tobacco: Never Assessed CommentsNoSex and Gender InformationValueDate RecordedSex Assigned at Xxdnth7909/29/2024 1:58 PM ESTLegal RteZrpzas39/15/2023 6:58 PM EDTGender VxakezemMyynel89/21/2025 1:58 PM ESTSexual FmoimcznqtyBzxcabsq83/21/2025 1:58 PM ESTdocumented as of this encounter Miscellaneous Notes * Telephone Encounter - Hina Moura MA - 07/19/2025 8:52 AM EST Pt called and notified of results. Pharmacy confirmed and medication sent. documented in this encounter Plan of Treatment DateTypeDepartmentCare Team (Latest Contact Info)Smugcifgarq13/15/2025 11:30 AM ESTPostpartum Visit [facility] MESSINA [address] [place] [address] Krupa Hernandez PA [address] [place] [address] [place], [place] [address] documented as of this encounter Visit Diagnoses Diagnosis Urinary tract infection with hematuria, site unspecified documented in this encounter
--- OUTSIDE RECORDS SUMMARY | 2025-07-21 08:16 | XMS_ITS | Encounter Summary ---
Author Organization [facility] Address [address] [facility] [place] [address] Care Team Providers Care Composition Floor Layer Name Role Phone Unavailable Primary Care Provider Unavailabl e Encounter Details DateTypeDepartmentCare Team (Latest Contact Info)Mhycpgotuex99/03/2025bstract HAL MESSINA [address] [place] [address] Greg Anderson DO [address] [facility] [address] Tej [place], [facility]11 Social History Tobacco UseTypesPacks/DayYears UsedDateSmoking Tobacco: Never Assessed CommentsYesSex and Gender InformationValueDate RecordedSex Assigned at Wstnzt2109/29/2024 1:58 PM ESTLegal OqvFmnxmd64/15/2023 6:58 PM EDTGender Identity Ujdikt2409/29/2024 1:58 PM ESTSexual MjgqeruongkOpsgrfdc06/21/2025 1:58 PM EST documented as of this encounter Plan of Treatment DateTypeDepartmentCare Team (Latest Contact Info)Lcwtnxbdxkf20/15/2025 11:30 AM ESTPostpartum Visit HAL MESSINA [address] [facility] [place] [address] Krupa Hernandez PA [address] [facility] [address] [place], [facility]11 documented as of this encounter Visit Diagnoses Not on filedocumented in this encounter
--- OUTSIDE RECORDS SUMMARY | 2025-07-21 08:17 | XMS_ITS | Encounter Summary ---
Author Organization [facility] Address [address] [facility] [place] [address] Care Team Providers Care Mobile Home Laborer Name Role Phone Unavailable Primary Care Provider Unavailabl e Encounter Details DateTypeDepartmentCare Team (Latest Contact Info)Wsfeifqolzz99/29/2025linisync Result Encounter NOMS External Department Unsolicited Krupa Hernandez PA [address] [facility] [address] [place], [facility]11 Social History Tobacco UseTypesPacks/DayYears UsedDateSmoking Tobacco: Never Assessed CommentsYesSex and Gender InformationValueDate RecordedSex Assigned at Mkjovk7409/29/2024 1:58 PM ESTLegal FfbEhmygd24/15/2023 6:58 PM EDTGender Identity Gllpzx2609/29/2024 1:58 PM ESTSexual AhvgtazrmhlRdhpawsg60/21/2025 1:58 PM EST documented as of this encounter Plan of Treatment DateTypeDepartmentCare Team (Latest Contact Info)Xbvrpjjzayf99/15/2025 11:30 AM ESTPostpartum Visit [facility]ree MESSINA [address] [facility] [place] [address] Krupa Hernandez PA [address] [facility] [address] [place], [facility]11 documented as of this encounter Procedures Procedure NamePriorityDate/TimeAssociated DiagnosisCommentsSTREP GP B CULTURE+NLTNTsbucda32/29/2025 3:30 PM EDT documented in this encounter Results * STREP GP B CULTURE+RFLX (07/07/2025 3:30 [...] is noted.TBHSTREP GP B CULTURE+RFLX Performed at: [facility] HospitalTBHSTREP GP B CULTURE+[id number] [place], [place] [id number] GP B CULTURE+RFLXLab Director: Al Salcedo PhD, Phone: [phone] (Source)Anatomical Location / Laterality Collection Method / VolumeCollection TimeReceived Time07/07/2025 3:30 PM EDT 07/07/2025 9:21 PM EDT Narrative [facility] - 07/12/2025 3:08 PM EST Authorizing ProviderResult TypeResult StatusAmy David CASTANEDA BLOOD ORDERABLES Final ResultPerforming OrganizationAddressCity/State/ZIP CodePhone Number [facility] TB documented in this encounter Visit Diagnoses Not on filedocumented in this encounter
--- OUTSIDE RECORDS SUMMARY | 2025-07-21 08:17 | XMS_ITS | Encounter Summary ---
Author Organization [facility] Address [address] [facility] [place] [address] Care Team Providers Care Airport Driver Name Role Phone Unavailable Primary Care Provider Unavailabl e Encounter Details DateTypeDepartmentCare Team (Latest Contact Info)Sjejokcpbif72/29/2025bstract HAL MESSINA [address] [facility] [place] [address] Greg Anderson DO [address] [facility] [address] Tej [place], [facility]11 Social History Tobacco UseTypesPacks/DayYears UsedDateSmoking Tobacco: Never Assessed CommentsYesSex and Gender InformationValueDate RecordedSex Assigned at Zazfqj2109/29/2024 1:58 PM ESTLegal XflPxlhza23/15/2023 6:58 PM EDTGender Identity Clsadu5109/29/2024 1:58 PM ESTSexual BwmtijfdoqgUandhult32/21/2025 1:58 PM EST documented as of this encounter Plan of Treatment DateTypeDepartmentCare Team (Latest Contact Info)Ymiobsoyavd36/15/2025 11:30 AM ESTPostpartum Visit HAL MESSINA [address] [facility] [place] [address] Krupa Hernandez PA [address] [facility] [address] [place], [facility]11 documented as of this encounter Visit Diagnoses Not on filedocumented in this encounter
--- OUTSIDE RECORDS SUMMARY | 2025-07-21 08:17 | XMS_ITS | Encounter Summary ---
Author Organization [facility] Address [address] [place] [address] Care Team Providers Care Grinding And Spraying Supervisor Name Role Phone Unavailable Primary Care Provider Unavailabl e Encounter Details DateTypeDepartmentCare Team (Latest Contact Info)Vycamsjiyse94/03/2025External Result Encounter NOMS External Department Unsolicited Greg Anderson DO [address] [facility] [address] [place], [facility]11 Social History Tobacco UseTypesPacks/DayYears UsedDateSmoking Tobacco: Never Assessed CommentsYesSex and Gender InformationValueDate RecordedSex Assigned at Luzeok2709/29/2024 1:58 PM ESTLegal XxoPrbbpy30/15/2023 6:58 PM EDTGender Identity Jbfnzr6509/29/2024 1:58 PM ESTSexual FneihmwpbhjVbeydmep87/21/2025 1:58 PM EST documented as of this encounter Plan of Treatment DateTypeDepartmentCare Team (Latest Contact Info)Dtibewkszdn19/15/2025 11:30 AM ESTPostpartum Visit [facility] Sree OBPAULO [address] [facility] [place] [address] Krupa Hernandez PA [address] [facility] [address] [place], [facility]11 documented as of this encounter Procedures Procedure NamePriorityDate/TimeAssociated DiagnosisCommentsPATHOLOGY REQUEST FOR LAB QXRFJbdjvxj92/03/2025 9:24 PM EST documented in this encounter Results * PATHOLOGY REQUEST FOR LAB ERIKA (07/12/2025 9:24 PM EST)ComponentValueRef Range Test MethodAnalysis TimePerformed AtPathologist SignaturePATHOLOGY REQUEST FOR LAB CORP07/20/2025 8:50 AM [facility] CtrComment:See report. Scanned copy available in EMR.Specimen (Source)Anatomical Location / LateralityCollection Method / VolumeCollection TimeReceived TimeOther Topography unknown / Nekmwra1307/12/2025 9:24 PM EST07/13/2025 1:06 PM EST Narrative Authorizing ProviderResult TypeResult StatusCorey Justin DOLAB BLOOD ORDERABLES Final ResultPerforming OrganizationAddressCity/State/ZIP CodePhone Number ON LICENSE OF [facility] [address] [place] [address], [facility] [address] [place] [address] documented in this encounter Visit Diagnoses Not on filedocumented in this encounter
--- OUTSIDE RECORDS SUMMARY | 2025-07-21 08:18 | XMS_ITS | Encounter Summary ---
Author Organization [facility] Address [address] [place] [address] Care Team Providers Care Scratcher Name Role Phone Unavailable Primary Care Provider Unavailabl e Encounter Details DateTypeDepartmentCare Team (Latest Contact Info)Nxdauzodlzb14/04/2025linisync Result Encounter NOMS External Department Unsolicited Greg Anderson DO [address] [facility] [address] [place], [facility]11 Social History Tobacco UseTypesPacks/DayYears UsedDateSmoking Tobacco: Never Assessed CommentsYesSex and Gender InformationValueDate RecordedSex Assigned at Qkobhd9509/29/2024 1:58 PM ESTLegal MfpUytsgt10/15/2023 6:58 PM EDTGender Identity Uikvin8009/29/2024 1:58 PM ESTSexual CqpfhbllhniViyymmjc66/21/2025 1:58 PM EST documented as of this encounter Plan of Treatment DateTypeDepartmentCare Team (Latest Contact Info)Qpuatdmthnf93/15/2025 11:30 AM ESTPostpartum Visit [facility]S Sree OBPAULO [address] [facility] [place] [address] Krupa Hernandez PA [address] [facility] [address] [place], [facility]11 documented as of this encounter Procedures Procedure NamePriorityDate/TimeAssociated DiagnosisCommentsTBH GLUCOSE BLOOD Pyopbpq1107/13/2025 5:50 AM EST ALL CBC WITH AUTO IXEOGivpixg83/04/2025 5:50 AM EST documented in this encounter Results * (ABNORMAL) TBH GLUCOSE BLOOD (07/13/2025 5:50 AM EST)ComponentValueRef Range Test MethodAnalysis TimePerformed AtPathologist ReguhtbtjXDXZIHV707(H)74 - 106 mg/dLTBHSpecimen (Source)Anatomical Location / LateralityCollection Method / VolumeCollection TimeReceived Time07/13/2025 5:50 AM EST07/13/2025 6:06 AM EST Narrative [facility] - 07/13/2025 6:22 AM EST Authorizing ProviderResult TypeResult StatusCorey Justin DOCLINISYNCFinal Result Performing OrganizationAddressCity/State/ZIP CodePhone Number [facility] TB * (ABNORMAL) ALL CBC WITH AUTO DIFF (07/13/2025 5:50 AM EST)ComponentValueRef RangeTest MethodAnalysis TimePerformed AtPathologist SignatureTBH WBC22.4(H) 4.0 - 11.0 10 3/uLTBHTBH RBC3.17(L)4.20 - 5.40 10 6/uLTBHTBH HGB8.4(L)12.0 - 16.0 g/dLTBHTBH HCT26.3(L)36.0 - 48.0 %TBHTBH MCV83.081.0 - 99.0 fLTBHTBH MCH 26.5(L)26.7 - 34.0 pgTBHTBH MCHC31.929.9 - 35.2 g/dLTBHTBH RDW14.411.0 - 15.0 %TBHTBH BOR817552 - 450 10 3/uLTBHTBH MPV9.69.5 - 13.5 [...] DOCLINISYNCFinal Result Performing OrganizationAddressCity/State/ZIP CodePhone Number [facility] TB documented in this encounter Visit Diagnoses Not on filedocumented in this encounter
--- OUTSIDE RECORDS SUMMARY | 2025-07-21 08:18 | XMS_ITS | Encounter Summary ---
Author Organization [facility] Address [address] [facility] [place] [address] Care Team Providers Care Set Builder Name Role Phone Unavailable Primary Care Provider Unavailabl e Encounter Details DateTypeDepartmentCare Team (Latest Contact Info)Lbzhjkzjale88/03/2025bstract HAL MESSINA [address] [place] [address] Greg Anderson DO [address] [facility] [address] Tej Balbuena, [facility]11 Social History Tobacco UseTypesPacks/DayYears UsedDateSmoking Tobacco: Never Assessed CommentsYesSex and Gender InformationValueDate RecordedSex Assigned at Tznwwg5109/29/2024 1:58 PM ESTLegal KdoTvxfit98/15/2023 6:58 PM EDTGender Identity Gxwafw4209/29/2024 1:58 PM ESTSexual SylvcdgwjhsFbuddhzt32/21/2025 1:58 PM EST documented as of this encounter Plan of Treatment DateTypeDepartmentCare Team (Latest Contact Info)Otocockxekq96/15/2025 11:30 AM ESTPostpartum Visit HAL MESSINA [address] [place] [address] Krupa Hernandez PA [address] [facility] [address] [place], [facility]11 documented as of this encounter Visit Diagnoses Not on filedocumented in this encounter
--- NOTE | 2025-07-21 12:08 | PC.NURSE ---
Pallavi and Kamran (Jacob) arrive for follow up. Pallavi states I just do not feel well, not sure what it is but do not feel well Pt color is pale, sallow. Pt reports on Saturday had incision check with Dr Anderson office, was told everything was fine. Saturday afternoon incision began draining clear to light pink fluid. Soaked entire maternity brief and then another full sized pad placed against incision. VSS and assessment WNL. Lungs clear throughout, denies pain in chest. Pt reports SOB when walking in the house not terrible but noticeable . Pulse ox reads 93% until pt requested to take deep breaths. Pulse ox up to 95%. Incision clean, no odor, light p[ink in color. Steri strips intact except for 2 inch space on left edge of incision. Small 2mm opening noted, no drainage today, no firmness or redness noted. No S/S of infection noted. Baby Kamran is With VSS and assessment WNL. Feeding well, 2 oz of Similac formula every 2-3 hour. Mom not feeling well and has not pumped for 2 days. States is ok with use of formula. TC to Dr Anderson, given update, VS, assessment. Wants pt to be sent to ER for full work up. Plan of care discussed to Pallavi and she is agreeable. Verbalized understanding of importance of following care into ER. Verbalized understanding. No further concerns voiced. Pt to call her mother for assistance with NB and will go to ER for evaluation.
[2025-07-21 12:09] VITALS: BP 130/86; PULSE 82; TEMP 36.5; O2SAT 95
== END 2025-07-21 12:13 | disposition home or self-care (01) ==
LOC: FBCO 08:11
PROVIDERS: PCP Family Medicine; Visit Provider Obstetrics & Gynecology
DX: Z39.1 Encounter for care and examination of lactating mother (principal)

== ENCOUNTER 2025-07-21 09:51 | Emergency (ER) | payer BC, SELFPAY ==
--- OUTSIDE RECORDS SUMMARY | 2025-07-07 14:20 | XMS_ITS | Encounter Summary ---
Author Organization [facility] Address [address] [facility] [place] [address] Care Team Providers Care Counseling Center Manager Name Role Phone Unavailable Primary Care Provider Unavailabl e Reason for Visit * ReasonCommentsRoutine Visit Encounter Details DateTypeDepartmentCare Team (Latest Contact Info)Maqznrmoulj73/29/2025 3:20 PM EDTRoutine [facility] [address] [facility] [place] [address] Krupa Hernandez PA [address] [facility] [facility] [address] [place], [facility]11 36 weeks gestation of ([facility]); Third trimester ([facility]) Social History Tobacco UseTypesPacks/DayYears UsedDateSmoking Tobacco: Never Assessed CommentsYesSex and Gender InformationValueDate RecordedSex Assigned at Xupgjv4909/29/2024 1:58 PM ESTLegal YxeRdavlx34/15/2023 6:58 PM EDTGender Identity Okwkkm5009/29/2024 1:58 PM ESTSexual NrjvmhijhkbWjxnefrl26/21/2025 1:58 PM EST documented as of this encounter Last Filed Vital Signs Vital SignReadingTime TakenCommentsBlood Kwdzmfks327/9007/07/2025 3:36 PM EDT Pulse--Temperature--Respiratory Rate--Oxygen Saturation--Inhaled Oxygen Concentration--Uikuih115 kg (275 lb 4 oz)07/07/2025 3:36 PM [...] Assessment/Plan ICD-10-CM 1. 36 weeks gestation of ([facility]) Z3A.36 POCT urinalysis dipstick manually resulted 2. Third trimester ([facility]) Z34.93 CULTURE, GROUP B STREP WITH SUSCEPTIBLITY [...] Plan of Treatment DateTypeDepartmentCare Team (Latest Contact Info)Kbrgjhunxqp75/15/2025 11:30 AM ESTPostpartum Visit [facility] [address] [place] [address] Krupa Hernandez PA [address] [facility] [place] [address] NameTypePriorityAssociated DiagnosesOrder ScheduleCULTURE, GROUP B STREP WITH SUSCEPTIBLITYLabRoutine Third trimester ([facility]) Expected: 07/07/2025, Expires: 07/07/2026documented as of this encounter Procedures Procedure NamePriorityDate/TimeAssociated DiagnosisCommentsPOCT URINALYSIS YVTMLOOICohmigo12/29/2025 3:48 PM EDT 36 weeks gestation of ([facility]) documented in this encounter Results * [...] / LateralityCollection Method / Volume Collection TimeReceived FbotBehkf52/29/2025 3:48 PM EDT Narrative Authorizing ProviderResult TypeResult StatusIn[facility] TEST ENTER/EDIT ORDERABLESFinal Result documented in this encounter Visit Diagnoses Diagnosis 36 weeks gestation of ([facility]) Third trimester ([facility]) state, incidental documented in this encounter
--- OUTSIDE RECORDS SUMMARY | 2025-07-19 10:30 | XMS_ITS | Encounter Summary ---
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 Name Role Phone Unavailable Primary Care Provider Unavailabl e Reason for Visit * ReasonCommentsPostpartum CarePost-op Visit1 week post c/s Encounter Details DateTypeDepartmentCare Team (Latest Contact Info)Uialmokaeoi73/10/2025 10:30 AM ESTOffice Visit HAL [facility]bu[facility] [address] [place] [phone] Krupa Hernandez PA [address] [place], [place] [address] Postoperative follow-up; care following delivery ([facility]) Social History Tobacco UseTypesPacks/DayYears UsedDateSmoking Tobacco: Never Assessed CommentsNoSex and Gender InformationValueDate RecordedSex Assigned at Idrygg6209/29/2024 1:58 PM ESTLegal ExcOymjej86/15/2023 6:58 PM EDTGender Identity Hjicwh5009/29/2024 1:58 PM ESTSexual GqwfhcphtcyKbouobgh88/21/2025 1:58 PM EST documented as of this encounter Last Filed Vital Signs Vital SignReadingTime TakenCommentsBlood Wtecavnw105/80109/18/2024 10:50 AM EST Pulse--Temperature--Respiratory Rate--Oxygen Saturation--Inhaled Oxygen Concentration--Obmbow347 kg (262 lb 12.8 oz)07/19/2025 10:50 AM CHSIuqujs083.6 cm (5' 4 )07/19/2025 10:50 AM ESTBody [...] nursing note reviewed. Exam conducted with a color maker present. Vitals: Estimated body mass index is 45.11 kg/m?? as calculated from the following: Height as of this encounter: 5' 4 . Weight as of this encounter: 262 lb 12.8 oz. BP: 136/80 No LMP recorded. Assessment/Plan ICD-10-CM 1. Postoperative follow-up Z09 2. care following delivery ([facility]) Z39.2 Patient presents today for a one [...] Plan of Treatment DateTypeDepartmentCare Team (Latest Contact Info)Dfttjeayzld44/15/2025 11:30 AM ESTPostpartum Visit [facility] M[facility] [address] [place] [address] Krupa Hernandez PA [address] [place] [address] documented as of this encounter Visit Diagnoses Diagnosis Postoperative follow-up Follow-up examination, following unspecified surgery care following delivery ([facility]) documented in this encounter
[2025-07-21] VITALS (32 sets, daily range): BP systolic 128–150; BP diastolic 83–102; PULSE 74–96; TEMP 37–37.4; O2SAT 96–99; BMI 45.0
--- OUTSIDE RECORDS SUMMARY | 2025-07-21 10:10 | XMS_ITS | Encounter Summary ---
Author Organization [facility] Address [address] [facility] [place] [address] Care Team Providers Care Bullet Slug Casting Machine Operator Name Role Phone Unavailable Primary Care Provider Unavailabl e Encounter Details DateTypeDepartmentCare Team (Latest Contact Info)Bsxmecyvlwl30/10/2025Telephone [facility] MESSINA [address] [place] [address] Hina Moura MA Social History Tobacco UseTypesPacks/DayYears UsedDateSmoking Tobacco: Never Assessed CommentsNoSex and Gender InformationValueDate RecordedSex Assigned at Bbvskf5009/29/2024 1:58 PM ESTLegal PgrAtyuld38/15/2023 6:58 PM EDTGender SlphcscyNftjbu22/21/2025 1:58 PM ESTSexual XyxmzvqaqrxQinnbjvz94/21/2025 1:58 PM ESTdocumented as of this encounter Miscellaneous Notes * Telephone Encounter - Hina Moura MA - 07/19/2025 8:52 AM EST Pt called and notified of results. Pharmacy confirmed and medication sent. documented in this encounter Plan of Treatment DateTypeDepartmentCare Team (Latest Contact Info)Kftnimeeqha60/15/2025 11:30 AM ESTPostpartum Visit NOMKit MESSINA [address] [place] [address] Krupa Hernandez PA [address] [place] [address] [place], [place] [phone] documented as of this encounter Visit Diagnoses Diagnosis Urinary tract infection with hematuria, site unspecified documented in this encounter
--- OUTSIDE RECORDS SUMMARY | 2025-07-21 10:10 | XMS_ITS | Encounter Summary ---
Author Organization [facility] Address [address] [facility] [place] [address] Care Team Providers Care Hand Woven Carpet And Rug Mender Name Role Phone Unavailable Primary Care Provider Unavailabl e Encounter Details DateTypeDepartmentCare Team (Latest Contact Info)Fkronhamlyn14/11/2025Telephone [facility] [address] [place] [address] Hina Moura MA Social History Tobacco UseTypesPacks/DayYears UsedDateSmoking Tobacco: Never Assessed CommentsNoSex and Gender InformationValueDate RecordedSex Assigned at Kwfzfv5209/29/2024 1:58 PM ESTLegal IizJfdxuz48/15/2023 6:58 PM EDTGender Identity Mfzkie8309/29/2024 1:58 PM ESTSexual AphfvwtlhhaNcbsmipw77/21/2025 1:58 PM EST documented as of this [...] If you could call me back myNumbers [phone]. Thank you, sampson. [facility] for pt to return call documented in this encounter Plan of Treatment DateTypeDepartmentCare Team (Latest Contact Info)Uoiewfwvsqv13/15/2025 11:30 AM ESTPostpartum Visit [facility] Sree MESSINA [address] [place] [address] [place] [address] Krupa Hernandez PA [address] [facility] [address] [place], [place] [phone] documented as of this encounter Visit Diagnoses Not on filedocumented in this encounter
--- OUTSIDE RECORDS SUMMARY | 2025-07-21 10:10 | XMS_ITS | Clinical Summary ---
Author Organization [facility] Address [address], [address] [place] [address] Care Team Providers Care Verifier Operator Name Role Phone Unavailable Primary Care [...] InformationValueDate RecordedSex Assigned at BirthNot on fileLegal IhxZhbecj35/21/2015 4:35 PM EDTGender IdentityNot on fileSexual OrientationNot on file Last Filed Vital Signs Vital SignReadingTime TakenCommentsBlood Snngjnav964/8703/30/2016 3:03 PM EDT Bqutb91834/22/2016 3:03 PM SQAVvypmwptzaf47.7 ??C (98.1 ??F)03/30/2016 3:03 PM EDTRespiratory Njiq332403/30/2016 3:03 PM EDTOxygen Nyxavxttjd21%03/30/2016 3:03 PM EDTInhaled Oxygen Concentration--Nhmbff54.4 kg (186 lb)03/30/2016 3:03 PM EDT Vhfrop738.6 cm (5' 4 )03/30/2016 3:03 PM EDTBody Mass Index31.9303/30/2016 3:03 PM EDT Plan of Treatment Not on file
--- OUTSIDE RECORDS SUMMARY | 2025-07-21 10:10 | XMS_ITS | Clinical Summary ---
Author Organization [facility] Address [id number] [address] [place] [address] Care Team Providers Care Clam Digger Name Role Phone Unavailable Primary Care Provider Unavailabl e Allergies Active AllergyReactionsCriticalityNoted DateCommentsSulfa (Sulfonamide Antibiotics)Nhopoedk89/19/2025 Medications MedicationSigDispense QuantityRefillsLast FilledStart DateEnd DateStatus omeprazole [...] Multigravida of advanced maternal age in second wijkvhvgp05/03/2025Estimated Date of DeliveryCommentsYes 07/29/2025ased on Ultrasound Encounters DateTypeDepartmentCare DzixEfannljyajg20/11/9468Qkdqab35/14/2025Travelfrom Last 3 Months Family History Medical HistoryRelationNameCommentsHypertensionFatherKidney zrpgvpzWjebbdE7IR QjrfqaN2GRSfbycskl GrandfatherBreast cancerMaternal GrandmotherRelationName StatusCommentsFatherDeceasedMaternal GrandfatherMaternal Grandmother Social [...] money to get more.Never True03/11/2025Estimated Date of AofrnmnvViaaapioWxj64/20/2025ased on UltrasoundSex and Gender InformationValue Date RecordedSex Assigned at BirthNot on fileLegal CyfRkdknl39/15/2025 11:20 AM EDTGender IdentityNot on fileSexual OrientationNot on file Last Filed Vital Signs Vital SignReadingTime TakenCommentsBlood Gvmprizc105/8303/11/2025 9:25 AM EDT Hxqur242803/11/2025 9:25 AM EDTTemperature--Respiratory Rate--Oxygen Saturation-- Inhaled Oxygen Concentration--Vfbvuo952.2 kg (269 lb 6.4 oz)03/11/2025 9:25 AM FAJWchbwr268.6 cm (5' 4 )03/11/2025 9:25 AM EDTBody Mass Index46.24003/11/2025 9:25 AM EDT Plan of Treatment Health MaintenanceDue DateLast DoneCommentsDepression Yvkirbuxb88/23/1999Adult BMI Follow Up Plan2005DTaP,Tdap and Td Vaccines (1 - Tdap)2006COVID- 19 Vaccine (2 - season)504/10/2020Influenza Bfigxeb8105/10/2025 06/15/2022, 05/23/2021dult BMI Wyoodeuwf43/11/2024Tobacco Screening Pap SmearRSV ( or age 60+ yrs) (No Doses Required)Completed Medical Devices Not on file Procedures Procedure NamePriorityDate/TimeAssociated DiagnosisCommentsUS MFM OB FOLLOW-UP, 1 GVUYIPdiugax49/11/2025 3:06 PM EDT Choroid plexus cyst of fetus in miranda Multigravida of advanced maternal age in second trimester Diet controlled gestational diabetes mellitus (GDM) in second trimester Hx of essential hypertension US MFM OB FOLLOW-UP, 1 KQKFDXekcpgr52/14/2025 3:22 PM EDT Choroid plexus cyst of [...] ESTRADA : 1985 SEX: F Accession Number: [id number] ORDERING PHYSICIAN: CANDICE OCHOA REFERRING PHYSICIAN: CANDICE OCHOA Coding Procedures ? 10357: Follow-up Ultrasound, per fetus Indication , Screening for follow-up survey, AMA- Supervision of elderly, Chronic hypertension affecting , Obesity in , History OB History ? 2. Para 0 ? [id number] Maternal Assessment Physical Exam ??Height 163 cm, [...] (oz) ? 8 oz EFW by: ?Hadlock (AEB-GV-JM-FL) Extended Tibia ??49.6 mm 29w 5d 43% Eliana Director Of Leadership Development ? 4.4 mm CM ? 7.0 mm [...] Heart/Thorax: 4-chamber view. RVOT view. LVOT view. 8-mzajbb-zntxgox view. Situs. Ductal arch view.Interventricular ? septum. [...] MVP measures 6.2 cm. Recommendations Please see [facility] recommendations from prior clinical and/or ultrasound report documentation. Subsequent follow up or other follow up as clinically determined by primary OB provider unless otherwise specified by [facility]. Results forwarded to ordering provider so they can follow up with the patient as necessary. Procedure Note Sam Sultana MD - 05/20/2025 NAME: RUBINA ESTRADA : 1985 SEX: F Accession Number: [id number] ORDERING PHYSICIAN: CANDICE OCHOA REFERRING PHYSICIAN: CANDICE OCHOA Coding Procedures 24639: Follow-up Ultrasound, per fetus Indication , Screening for follow-up survey, AMA- Supervision of elderly, Chronic hypertension affecting , Obesity in , History OB History 2. Para 0 [id number] Maternal Assessment Physical Exam Height 163 cm, [...] EFW (oz) 8 oz EFW by: Hadlock (NVH-DD-UW-FL) Extended Tibia 49.6 mm 29w 5d 43% Eliana Director Of Leadership Development 4.4 mm CM 7.0 mm 51% Nicolaides [...] Heart/Thorax: 4-chamber view. RVOT view. LVOT view. 4-lnoeqx-zguuesh view.Situs. Ductal arch view. Interventricular septum. Great [...] MVP measures 6.2 cm. Recommendations Please see [facility] recommendations from prior clinical and/or ultrasoundreport documentation. Subsequent follow up or other follow up as clinically determined byprimary OB provider unless otherwise specified by MFM. Results forwarded to ordering provider so they can follow up with thepatient as necessary. Authorizing ProviderResult TypeResult StatusCorey R Justin DOIMG US ORDERABLES Final Result from Last 3 Months Insurance
--- OUTSIDE RECORDS SUMMARY | 2025-07-21 10:10 | XMS_ITS | Encounter Summary ---
Author Organization [facility] Address [address] [place] [facility] [place] [address] Care Team Providers Care Cloth Printing Utility Worker Name Role Phone Unavailable Primary Care Provider Unavailabl e Encounter Details DateTypeDepartmentCare Team (Latest Contact Info)Szgbwwbreik54/03/2025bstract HAL MESSINA [address] [place] [address] Greg Anderson DO [address] [facility] [address] Tej [place], [facility]11 Social History Tobacco UseTypesPacks/DayYears UsedDateSmoking Tobacco: Never Assessed CommentsYesSex and Gender InformationValueDate RecordedSex Assigned at Orfwtt5809/29/2024 1:58 PM ESTLegal StmEnpwpx02/15/2023 6:58 PM EDTGender Identity Fvujrl2709/29/2024 1:58 PM ESTSexual VdfxcwlxfjiWjnnouvs09/21/2025 1:58 PM EST documented as of this encounter Plan of Treatment DateTypeDepartmentCare Team (Latest Contact Info)Wrgyuayplnt57/15/2025 11:30 AM ESTPostpartum Visit HAL MESSINA [address] [facility] [place] [address] Krupa Hernandez PA [address] [facility] [address] [place], [facility]11 documented as of this encounter Visit Diagnoses Not on filedocumented in this encounter
--- OUTSIDE RECORDS SUMMARY | 2025-07-21 10:10 | XMS_ITS | Encounter Summary ---
Author Organization [facility] Address [address] [place] [facility] [place] [address] Care Team Providers Care Interpretative Dancer Name Role Phone Unavailable Primary Care Provider Unavailabl e Encounter Details DateTypeDepartmentCare Team (Latest Contact Info)Pdwdpszqefq57/04/2025linisync Result Encounter [facility] External Department Unsolicited Greg Anderson DO [address] [facility] [address] [place], [facility]11 Social History Tobacco UseTypesPacks/DayYears UsedDateSmoking Tobacco: Never Assessed CommentsYesSex and Gender InformationValueDate RecordedSex Assigned at Vlvche4609/29/2024 1:58 PM ESTLegal ExdZjtwsx41/15/2023 6:58 PM EDTGender Identity Eonomn3509/29/2024 1:58 PM ESTSexual CrfawdqednjBkkhmhjz01/21/2025 1:58 PM EST documented as of this encounter Plan of Treatment DateTypeDepartmentCare Team (Latest Contact Info)Tongsaprfpe96/15/2025 11:30 AM ESTPostpartum Visit [facility] OBPAULO [address] [facility] [place] [address] Krupa Hernandez PA [address] [facility] [place], [facility]11 documented as of this encounter Procedures Procedure NamePriorityDate/TimeAssociated DiagnosisCommentsTBH GLUCOSE BLOOD Hvtpumc4807/13/2025 5:50 AM EST ALL CBC WITH AUTO RMXOKzhkelb15/04/2025 5:50 AM EST documented in this encounter Results * (ABNORMAL) TBH GLUCOSE BLOOD (07/13/2025 5:50 AM EST)ComponentValueRef Range Test MethodAnalysis TimePerformed AtPathologist KeiohgahjTTQEWME038(H)74 - 106 mg/dLTBHSpecimen (Source)Anatomical Location / LateralityCollection [...] - 35.2 g/dLTBHTBH RDW14.411.0 - 15.0 %TBHTBH PZM008409 - 450 10 3/uLTBHTBH MPV9.69.5 - 13.5 [...]
--- OUTSIDE RECORDS SUMMARY | 2025-07-21 10:10 | XMS_ITS | Encounter Summary ---
Author Organization [facility] Address [address] [place] [address] Care Team Providers Care Ski Topper Name Role Phone Unavailable Primary Care Provider Unavailabl e Encounter Details DateTypeDepartmentCare Team (Latest Contact Info)Ktcuvryvqbc82/29/2025linisync Result Encounter [facility]S External Department Unsolicited Krupa Hernandez PA [address] [facility] [address] [place], [facility]11 Social History Tobacco UseTypesPacks/DayYears UsedDateSmoking Tobacco: Never Assessed CommentsYesSex and Gender InformationValueDate RecordedSex Assigned at Cgxjbi7309/29/2024 1:58 PM ESTLegal SdqWvfwvn27/15/2023 6:58 PM EDTGender Identity Abdeus4509/29/2024 1:58 PM ESTSexual CraxrcimikoJwbcnaxm08/21/2025 1:58 PM EST documented as of this encounter Plan of Treatment DateTypeDepartmentCare Team (Latest Contact Info)Qewvrxmndln06/15/2025 11:30 AM ESTPostpartum Visit [facility] MESSINA [address] [facility] [place] [address] Krupa Hernandez PA [address] [facility] [address] [place], [facility]11 documented as of this encounter Procedures Procedure NamePriorityDate/TimeAssociated DiagnosisCommentsSTREP GP B CULTURE+KRQKKusjqax36/29/2025 3:30 PM EDT documented in this encounter [...] is noted.TBHSTREP GP B CULTURE+RFLX Performed at: [facility] CULTURE+[id number] [place], [place] [id number] GP B CULTURE+RFLXLab Director: Al Salcedo PhD, Phone: [phone] (Source)Anatomical Location / Laterality Collection Method / VolumeCollection TimeReceived Time07/07/2025 3:30 PM EDT 07/07/2025 9:21 PM EDT Narrative [facility] - 07/12/2025 3:08 PM EST Authorizing ProviderResult TypeResult StatusAmy David CASTANEDA BLOOD ORDERABLES Final ResultPerforming OrganizationAddressCity/State/ZIP CodePhone Number [facility] TB documented in this encounter Visit Diagnoses Not on filedocumented in this encounter
--- OUTSIDE RECORDS SUMMARY | 2025-07-21 10:10 | XMS_ITS | Encounter Summary ---
Author Organization [facility] Address [address] [place] [address] Care Team Providers Care Cafeteria Manager Name Role Phone Unavailable Primary Care Provider Unavailabl e Encounter Details DateTypeDepartmentCare Team (Latest Contact Info)Xtjvptyjuzt69/21/2025linisync Result Encounter [facility]OMS External Department Unsolicited Candice Anderson DO [address] [facility] [address] Te[place], [facility]11 Social History Tobacco UseTypesPacks/DayYears UsedDateSmoking Tobacco: Never Assessed CommentsYesSex and Gender InformationValueDate RecordedSex Assigned at Cyryzk2209/29/2024 1:58 PM ESTLegal UwbAsyutp23/15/2023 6:58 PM EDTGender Identity Qskmkx4609/29/2024 1:58 PM ESTSexual RaaigarlyqhZrmywwak96/21/2025 1:58 PM EST documented as of this encounter Plan of Treatment DateTypeDepartmentCare Team (Latest Contact Info)Fygcogyuylb72/15/2025 11:30 AM ESTPostpartum Visit [facility] [address] [facility] [place] [address] Krupa Hernandez PA [address] [facility] [facility] [address] [place], [facility]11 documented as of this encounter Procedures Procedure NamePriorityDate/TimeAssociated DiagnosisCommentsUS OB BPP W NON-TXQDFX9906/29/2025 2:03 PM EDT documented in this encounter Results * US OB BPP W NON-STRESS (06/29/2025 2:03 PM EDT)Anatomical Region LateralityModalityOtherSpecimen (Source)Anatomical Location / Laterality Collection Method / VolumeCollection TimeReceived Time06/29/2025 2:03 PM EDT Narrative 06/29/2025 2:05 PM EDT [facility] ?[address] ? [place] [address] ? Ultrasound Report ? Signed Patient: PALLAVI WEN S ?MR#: [id number] : 1985 ?Acct:[id number] Age/Sex: 40 / F ?ADM Date: 06/29/25 Loc: US Attending Dr: Candice Anderson D.O. Ordering Physician: Candice Anderson D.O. Date of Service: 06/29/25 Procedure(s): OB BPP w non-stress Accession Number(s): [id number] cc: Candice Anderson D.O.; Lynn Jose D.O. ? [facility] ? [address] ? [place] [address] ? Patient Name: PALLAVI WEN MRN: [facility]:[id number] ? date: 1985 ?Sex: F Assigned Patient Location: [facility] Current Patient Location: Accession/Order Number: [id number] Exam Date: 06/29/2025 ??09:25 ?Report Date: 06/29/2025 [...] Womack M.D. ??06/29/2025 2:03 PM Dictation Location: [place] [address] Electronically authenticated by: [id number] ??Y ?? Date: 06/29/2025 ??14:03 Dictated By: ?Joan Womack M.D. Signed By: ?06/29/25 1405 DD/ 1403 TD/TT: ? Steeple Jack: Procedure Note Radiology, Radiologist, - 07/20/2025 [place] [address] Ultrasound Report Signed Patient: PALLAVI WEN [facility]#: [id number] : 1985Acct:[id number] Age/Sex: 40 / FADM Date: 06/29/25 Loc: US Attending Dr: Candice Anderson D.O. Ordering Physician: Candice Anderson D.O. Date of Service: 06/29/25 Procedure(s): OB BPP w non-stress Accession Number(s): [id number] cc: Candice Anderson D.O.; Lynn Jose D.O. [place] [id number] Patient Name: PALLAVI WEN MRN: [facility]:[id number] date: 1985 Sex: F Assigned Patient Location: [facility] Current Patient Location: Accession/Order Number: [id number] Exam Date: 06/29/2025 09:25 Report Date: 06/29/2025 [...] Womack M.D. 06/29/2025 2:03 PM Dictation Location: [place] [address] Electronically authenticated by: [id number] Y Date: 4:03 Dictated By: Joan Womack M.D. Signed By:06/29/25 1405 DD/ 140 TD/TT: Steeple Jack: Authorizing ProviderResult TypeResult StatusCorereba Anderson DOCLINISYNC IMAGINGFinal Result documented in this encounter Visit Diagnoses Not on filedocumented in this encounter
--- OUTSIDE RECORDS SUMMARY | 2025-07-21 10:10 | XMS_ITS | Encounter Summary ---
Author Organization [facility] Address [address] [place] [facility] [place] [address] Care Team Providers Care Document Specialist Name Role Phone Unavailable Primary Care Provider Unavailabl e Encounter Details DateTypeDepartmentCare Team (Latest Contact Info)Byyrvihsdqg85/02/2025linisync Result Encounter NOMS External Department Unsolicited Greg Anderson DO [address] [facility] [address] [place], [facility]11 Social History Tobacco UseTypesPacks/DayYears UsedDateSmoking Tobacco: Never Assessed CommentsYesSex and Gender InformationValueDate RecordedSex Assigned at Cpaubm7009/29/2024 1:58 PM ESTLegal HmrKclpxt58/15/2023 6:58 PM EDTGender Identity Xqduao4809/29/2024 1:58 PM ESTSexual XqankarnmxwIvrmcnal11/21/2025 1:58 PM EST documented as of this encounter Plan of Treatment DateTypeDepartmentCare Team (Latest Contact Info)Pmpjlzodqwz35/15/2025 11:30 AM ESTPostpartum Visit [facility] Sree OBPAUOL [address] [facility] [place] [address] Krupa Hernandez PA [address] [facility] [address] [place], [facility]11 documented as of this encounter Procedures Procedure NamePriorityDate/TimeAssociated DiagnosisCommentsURINE CULTURE, OHOCPAXPmheucx43/02/2025 5:40 PM EST [facility] DRUG SCREEN RAPID (URINE)Lhqwane2207/11/2025 5:40 PM EST [facility] URINALYSIS, WITH VKWXWFMUJDCZkzlrta93/02/2025 5:40 PM EST [facility] CBC WITH PLATELET NO NUXEGNCUKSHRNlrkzre65/02/2025 5:19 PM EST documented in this encounter Results * (ABNORMAL) URINE CULTURE, ROUTINE (07/11/2025 5:40 PM EST)ComponentValueRef RangeTest MethodAnalysis TimePerformed AtPathologist SignatureURINE CULTURE, ROUTINE ??Urine Culture, Routine Organism: Escherichia coli. ?? : TBHURINE CULTURE, ROUTINE*ABNORMAL*TBHURINE CULTURE, ACMNGHI26,000-50,000 colony forming units per mLTBHURINE CULTURE, ROUTINEEscherichia coli.TBHURINE CULTURE, ROUTINEOrganism: Escherichia coli. :TBHURINE CULTURE, ROUTINE*ABNORMAL*TBHURINE CULTURE, ROUTINECefazolin with an DAVE <=16 predicts susceptibility toTBHURINE CULTURE, ROUTINEthe oral agents cefaclor, cefdinir, cefpodoxime,TBHURINE CULTURE, ROUTINEcefprozil, cefuroxime, cephalexin, and loracarbef whenTBHURINE CULTURE, ROUTINEused for therapy of uncomplicated urinary tractTBHURINE CULTURE, ROUTINEinfections due to E. coli, Klebsiella pneumoniae, andTBHURINE CULTURE, ROUTINEProteus mirabilis.TBHURINE CULTURE, LEQYAZN22,000-100,000 colony forming units per mLTBHURINE CULTURE, ROUTINE ??O:ESCHCO Isolated TBHURINE CULTURE, ROUTINEPerformed at: - [facility]coSaint [facility] Medical CenterTBHURINE CULTURE, [id number] [place], [place] [id number] CULTURE, ROUTINELab Director: Al Salcedo PhD, Phone: [phone] CULTURE, ROUTINE Organism: ??1.1 Antibiotic ? Interpretation [...] BLOOD ORDERABLES Final ResultPerforming OrganizationAddressCity/State/ZIP CodePhone Number [facility] * (ABNORMAL) [facility] URINALYSIS, WITH MICROSCOPIC [...] Justin DOCLINISYNCFinal Result Performing OrganizationAddressCity/State/ZIP CodePhone Number [facility] * (ABNORMAL) HP CBC WITH PLATELET NO DIFFERENTIAL (07/11/2025 5:19 PM EST) ComponentValueRef RangeTest MethodAnalysis TimePerformed AtPathologist SignatureTBH WBC13.4(H)4.0 - 11.0 10 3/uLTBHTBH RBC3.69(L)4.20 - 5.40 10 6/uL TBHTBH HGB10.1(L)12.0 - 16.0 g/dLTBHTBH HCT30.0(L)36.0 - 48.0 %TBHTBH MCV81.3 81.0 - 99.0 fLTBHTBH MCH27.426.7 - 34.0 pgTBHTBH MCHC33.729.9 - 35.2 g/dLTBH TBH RDW14.211.0 - 15.0 %TBHTBH UPQ959185 - 450 10 3/uLTBHTBH MPV9.59.5 - 13.5 fLTBHSpecimen (Source)Anatomical Location / LateralityCollection Method / VolumeCollection TimeReceived Time07/11/2025 5:19 PM EST07/11/2025 5:25 PM EST Narrative [facility] - 07/11/2025 5:31 PM EST Authorizing ProviderResult TypeResult StatusCorey Justin DOCLINISYNCFinal Result Performing OrganizationAddressCity/State/ZIP CodePhone Number [facility] documented in this encounter Visit Diagnoses Not on filedocumented in this encounter
--- OUTSIDE RECORDS SUMMARY | 2025-07-21 10:10 | XMS_ITS | Clinical Summary ---
Author Organization [facility] Address [address] [place] [address] Care Team Providers Care Seo Professional Name Role Phone Unavailable Primary Care Provider Unavailabl e Allergies Active AllergyReactionsCriticalityNoted DateCommentsSulfa AntibioticsSwelling, NuwfraomldhAuit26/22/2016 Other Reaction(s): Swelling of throat Sulfamethoxazole-NggsecctkxvnBpohqvg58/11/4066HdchwkaczrJksrz65/02/2024Wound Dressing MydpzunxLabsGos58/01/2025 Medications MedicationSigDispense QuantityRefillsLast FilledStart DateEnd DateStatus venlafaxine XR (Effexor XR) 150 MG 24 hr capsule Take 150 mg by mouth Daily4Active omeprazole (PriLOSEC) [address] capsule PLEASE SEE ATTACHED FOR DETAILED QVPINFTKIX70/02/2025Active labetalol (Normodyne) 200 MG tablet Indications:Elevated blood pressure readingTake 1 tablet (200 mg) by mouth in the morning and 1 tablet (200 mg) in the evening and 1 tablet (200 mg) before bedtime. 90 tablet 1104/712201/6Active MV-Min-Fe Fum-FA-DHA ( 1 PO) Take by [...] by mouth every 6 (six) hours if gixzhf77Discontinued phenazopyridine (Pyridium) 100 MG tablet Indications:Urinary tract [...] Problems No known active problems Encounters DateTypeDepartmentCare JbtbBizrcjzmwec35/11/2025Telephone [facility] [place] [facility] [address] [place] [address] Hina Moura SD 07/20/2025bstract [facility] [place] [facility] [address] [place] [address] Hina Moura SD 07/19/2025 10:30 [place] [address] Krupa Olmstead PA Postoperative follow-up; care following delivery ([facility])07/19/2025Telephone [facility] [address] [place] [address] Hina Moura SD 5Clinisync Result Encounter NOMS External Department Unsolicited Candice Anderson, DO 07/12/2025External Result Encounter NOMS External Department Unsolicited Candice Anderson, DO 07/12/2025bstract [facility] [address] [place] [address] Candice Anderson, DO 07/12/2025bstract [facility] [place] [facility] [address] [place] [address] Candice Anderson, DO 5Clinisync Result Encounter NOMS External Department Unsolicited Candice Anderson, DO 07/07/2025 3:20 PM EDTRoutine [facility] [address] [place] [address] Krupa Olmstead PA 36 weeks gestation of ([facility]); Third trimester ([facility])07/07/2025bstract [facility] [address] [place] [address] Candice Anderson, 07/07/2025linisync Result Encounter NOMS External Department Unsolicited Krupa Olmstead PA 07/07/2025amboo flowsheet [facility] [address] [place] [address] Krupa Olmstead PA 07/06/2025linisync Result Encounter NOMS External Department Unsolicited Candice Anderson, DO 06/30/2025bstract [facility] [place] [facility] [address] [place] [address] Hina Moura MA 06/30/2025Telephone [facility] [place] [facility] [address] [place] [address] Hina Moura SD 06/29/2025linisync Result Encounter NOMS External Department Unsolicited Candice Anderson, DO 06/28/2025 9:40 AM EDTRoutine [facility] [place] [facility] [address] [place] [address] Candice Anderson, DO 35 weeks gestation of ([facility]); Third trimester ([facility]); Gestational diabetes mellitus (GDM), antepartum, gestational diabetes method of control unspecified([facility]); Chronic hypertension; H/O miscarriage, currently ([facility]); UTI symptoms; Palpitations; Heartburn during , antepartum ([facility])06/28/2025External Result Encounter NOMS External Department Unsolicited Candice Anderson, DO 06/28/2025amboo flowsheet [facility] [address] [place] [address] Candice Anderson, DO 06/18/2025bstract [facility] [place] [facility] [address] [place] [address] Candice Anderson, DO 06/17/2025bstract [facility] [address] [place] [address] Candice Anderson, DO 06/15/2025bstract [facility] [place] [facility] [address] [place] [address] Candice Anderson, DO 06/14/2025 11:50 AM EDTRoutine [facility] [address] [place] [address] Suzanne Valdivia, MARINA 33 weeks gestation of ([facility]); Third trimester ([facility]); Gestational diabetes mellitus (GDM), antepartum, gestational diabetes method of control unspecified([facility])06/14/2025linisync Result Encounter NOMS External Department Unsolicited Krupa Olmstead PA 06/14/2025amb flowsheet [facility] [place] [facility] [address] [place] [address] Suzanne Valdivia, MARINA 05/30/2025bstract [facility] [address] [place] [phone] Candice Anderson, DO 05/30/2025bstract [facility] [address] [place] [phone] Candice Anderson, DO 05/27/2025 8:50 AM EDTRoutine [facility] [address] [place] [place] [address] Krupa Olmstead PA Size of fetus inconsistent with dates, antepartum ([facility]) (Primary Dx); Third trimester ([facility]); 31 weeks gestation of ([facility])05/27/2025amboo flowsheet [facility] [place] [facility] [address] [place] [address] Krupa Olmstead PA 05/20/2025bstract [facility] [address] [place] [place] [address] Candice Anderson, 05/13/2025 8:30 AM EDTRoutine [facility] [address] [place] [address] Candice Anderson, DO 29 weeks gestation of ([facility]); Third trimester ([facility]); Gestational diabetes mellitus (GDM), antepartum, gestational diabetes method of control unspecified([facility]); Urinary tract infection without hematuria, site azclzjfuwly58/04/2025amboo flowsheet [facility] [address] [place] [address] Candice Anderson, DO 05/11/2025External Result Encounter NOM[facility] [...] Department Unsolicited Shaun Rebollar MD 05/04/2025bstract [facility] [place] [facility] [address] [place] [address] Candice Anderson, DO 05/04/2025Telephone [facility] [address] [place] [address] Candice Anderson, DO 04/29/2025bstract [facility] [address] [place] [address] Candice Anderson, 04/28/2025 1:00 PM EDTRoutine [facility] [address] [place] [address] Krupa Olmstead PA 26 weeks gestation of ([facility]); Second trimester ([facility]); Urinary tract infection with hematuria, site unspecified; Yeast rmlyammqx67/20/2025amboo flowsheet [facility] [address] [place] [address] Krupa Olmstead PA 04/23/2025bstract [facility] [address] [place] [address] Candice Anderson, 04/21/2025Travelfrom Last 3 Months Family History Medical HistoryRelationNameCommentsHypertensionFatherDavid KocherDiabetes Maternal GrandfatherGary RobronBreast cancerMaternal GrandmotherJean Robron MigrainesMotherSandra KocherRelationNameStatusCommentsFatherDavid KocherAlive Maternal GrandfatherGary RobronAliveMaternal GrandmotherJean RobronAliveMother Alecia KocherAlive Social History Tobacco UseTypesPacks/DayYears UsedDateSmoking Tobacco: Never Assessed CommentsNoSex and Gender InformationValueDate RecordedSex Assigned at Qgnnch8809/29/2024 1:58 PM ESTLegal AojVlzyrz98/15/2023 6:58 PM EDTGender Identity Aajroy7809/29/2024 1:58 PM ESTSexual MjohzajdflzTrufrrwp86/21/2025 1:58 PM EST Last Filed Vital Signs Vital SignReadingTime TakenCommentsBlood Fztrqyxt642/80109/18/2024 10:50 AM EST Pulse--Temperature--Respiratory Rate--Oxygen Saturation--Inhaled Oxygen Concentration--Ubvmvj780 kg (262 lb 12.8 oz)07/19/2025 10:50 AM GVMCtlxtl741.6 cm (5' 4 )07/19/2025 10:50 AM ESTBody Mass Index45. 10:50 AM EST Plan of Treatment DateTypeDepartmentCare Team (Latest Contact Info)Cxpdxhzbnhn86/15/2025 11:30 AM ESTPostpartum Visit [facility] [address] [place] [phone] Krupa Olmstead PA [address] [place] [address] Health MaintenanceDue DateLast DoneCommentsHPV/Rivqdu4503/01/2017COVID-19 Vaccine ( season)Influenza Vaccine (#1)2025 06/15/2022, 05/23/2021ervical Cancer Vwcrgjwxk86/03/2028Pap Smear02/10/2028 02/09/2025Pneumococcal Vaccine: Pediatrics (0 to 5 Years) and At-Risk Patients (6 to 64 Years)Aged OutNo longer eligible based on patient's age to complete this topic Procedures Procedure NamePriorityDate/TimeAssociated DiagnosisCommentsTBH GLUCOSE BLOOD Gsahkaq5107/13/2025 5:50 AM EST ALL CBC WITH AUTO PAHCJyctndb33/04/2025 5:50 AM EST PATHOLOGY REQUEST FOR LAB ULKBSvivvtu00/03/2025 9:24 PM EST URINE CULTURE, HUVHPUUWlpdgvk30/02/2025 5:40 PM EST HMHP URINALYSIS, WITH PPWXKHLQIZJQxgnszi72/02/2025 5:40 PM EST TBH DRUG SCREEN RAPID (URINE)Tvbfroc4707/11/2025 5:40 PM EST HMHP CBC WITH PLATELET NO UJRYIQWOBCSBWwwdnxo02/02/2025 5:19 PM EST POCT URINALYSIS CGCRVYRVHwmvzmw67/29/2025 3:48 PM EDT 36 weeks gestation of ([facility]) STREP GP B CULTURE+BDFWFxfkkya43/29/2025 3:30 PM EDT US OB BPP W NON-DQGGQZ3007/06/2025 9:55 AM EDT US OB BPP W NON-YUAXFJ9606/29/2025 2:03 PM EDT URINARY TRACT INFECTION (HTRX)Yxunupp1006/28/2025 11:26 AM EDT POCT URINALYSIS JFEJMHFUPutfzcp43/20/2025 10:04 AM EDT 35 weeks gestation of ([facility]) Third trimester ([facility]) Gestational diabetes mellitus (GDM), antepartum, gestational diabetes method of control unspecified([facility]) US OB IJGYTN8206/14/2025 12:01 PM EDT POCT URINALYSIS XAHOWXKKNrkeypb04/06/2025 11:49 AM EDT 33 weeks gestation of ([facility]) Third trimester ([facility]) POCT URINALYSIS EJVEXHXTSjhbxsp18/18/2025 8:58 AM EDT Third trimester ([facility]) POCT URINALYSIS GIBDXWAZOsujwyb45/04/2025 8:42 AM EDT 29 weeks gestation of ([facility]) Third trimester ([facility]) US RENAL PDJABRNH78/02/2025 12:52 PM EDT RZAZZEYTLR22/01/2025 11:10 PM EDT FDJUQHBBEDU64/01/2025 11:10 PM EDT COMPREHENSIVE METABOLIC LEPQJRUJS27/01/2025 11:10 PM EDT CBC WITH AUTO XOCFXYBPOJBLHDUN08/01/2025 11:10 PM EDT AAXCZSRABFMWHNT73/01/2025 11:05 PM EDT AEROBIC DAVE CHARGE (NMIC56)STAT05/10/2025 10:30 PM EDT URINALYSIS RUFJSJQDAH65/01/2025 10:30 PM EDT CULTURE, URINE, AWZLTSCEHLB78/01/2025 10:30 PM EDT URINARY TRACT INFECTION (HTRX)Rqgrfcj4504/28/2025 1:20 PM EDT POCT URINALYSIS FXMBBBLAPqslgkg13/20/2025 1:15 PM EDT 26 weeks gestation of ([facility]) Second trimester ([facility]) PAP LEIGMVhezqow76/03/2025 12:00 AM EDTfrom Last 3 Months or Most Recently Relevant to Health Maintenance Results * (ABNORMAL) TB GLUCOSE BLOOD (07/13/2025 5:50 AM EST)ComponentValueRef Range Test MethodAnalysis TimePerformed AtPathologist XkflfugkpYLBMRXA985(H)74 - 106 mg/dLTBHSpecimen (Source)Anatomical Location / LateralityCollection Method / VolumeCollection TimeReceived Time07/13/2025 5:50 AM EST07/13/2025 6:06 AM EST Narrative [facility] - 07/13/2025 6:22 AM EST Authorizing ProviderResult TypeResult StatusCorey Justin DOCLINISYNCFinal Result Performing OrganizationAddressCity/State/ZIP CodePhone Number [facility] * (ABNORMAL) ALL CBC WITH AUTO DIFF (07/13/2025 5:50 AM EST)ComponentValueRef RangeTest MethodAnalysis TimePerformed AtPathologist SignatureTBH WBC22.4(H) 4.0 - 11.0 10 3/uLTBHTBH RBC3.17(L)4.20 - 5.40 10 6/uLTBHTBH HGB8.4(L)12.0 - 16.0 g/dLTBHTBH HCT26.3(L)36.0 - 48.0 %TBHTBH MCV83.081.0 - 99.0 fLTBHTBH MCH 26.5(L)26.7 - 34.0 pgTBHTBH MCHC31.929.9 - 35.2 g/dLTBHTBH RDW14.411.0 - 15.0 %TBHTBH TCG584418 - 450 10 3/uLTBHTBH MPV9.69.5 - 13.5 [...] SignaturePATHOLOGY REQUEST FOR LAB CORP07/20/2025 8:50 AM [facility] CtrComment:See report. Scanned copy available in EMR.Specimen (Source)Anatomical Location / LateralityCollection Method / VolumeCollection TimeReceived TimeOther Topography unknown / Rofdiwp2307/12/2025 9:24 PM EST07/13/2025 1:06 PM EST Narrative Authorizing ProviderResult TypeResult StatusCorey Justin DOLAB BLOOD ORDERABLES Final ResultPerforming OrganizationAddressCity/State/ZIP CodePhone Number [facility] [address] [place] [address], [facility] [address] [place] [address] * (ABNORMAL) URINE CULTURE, ROUTINE (07/11/2025 5:40 PM EST)ComponentValueRef RangeTest MethodAnalysis TimePerformed AtPathologist SignatureURINE CULTURE, ROUTINE ??Urine Culture, Routine Organism: Escherichia coli. ?? : TBHURINE CULTURE, ROUTINE*ABNORMAL*TBHURINE CULTURE, PPBTRJP63,000-50,000 colony forming units per mLTBHURINE CULTURE, ROUTINEEscherichia coli.TBHURINE CULTURE, ROUTINEOrganism: Escherichia coli. :TBHURINE CULTURE, ROUTINE*ABNORMAL*TBHURINE CULTURE, ROUTINECefazolin with an DAVE <=16 predicts susceptibility toTBHURINE CULTURE, ROUTINEthe oral agents cefaclor, cefdinir, cefpodoxime,TBHURINE CULTURE, ROUTINEcefprozil, cefuroxime, cephalexin, and loracarbef whenTBHURINE CULTURE, ROUTINEused for therapy of uncomplicated urinary tractTBHURINE CULTURE, ROUTINEinfections due to E. coli, Klebsiella pneumoniae, andTBHURINE CULTURE, ROUTINEProteus mirabilis.TBHURINE CULTURE, OBXSWZL96,000-100,000 colony forming units per mLTBHURINE CULTURE, ROUTINE ??O:ESCHCO Isolated TBHURINE CULTURE, ROUTINEPerformed at: - [facility]coAtl[facility] InstituteTBHURINE CULTURE, [id number] [place], [place] [id number] CULTURE, ROUTINELab Director: Al Salcedo PhD, Phone: [phone] CULTURE, ROUTINE Organism: ??1.1 Antibiotic ? Interpretation [...] BLOOD ORDERABLES Final ResultPerforming OrganizationAddressCity/State/ZIP CodePhone Number [facility] * TBH DRUG SCREEN RAPID (URINE) (07/11/2025 [...] Justin DOCLINISYNCFinal Result Performing OrganizationAddressCity/State/ZIP CodePhone Number [facility] * (ABNORMAL) HMHP URINALYSIS, WITH [...] Justin DOCLINISYNCFinal Result Performing OrganizationAddressCity/State/ZIP CodePhone Number [facility] * (ABNORMAL) [facility] CBC WITH PLATELET NO DIFFERENTIAL (07/11/2025 5:19 PM EST) ComponentValueRef RangeTest MethodAnalysis TimePerformed AtPathologist SignatureTBH WBC13.4(H)4.0 - 11.0 10 3/uLTBHTBH RBC3.69(L)4.20 - 5.40 10 6/uL TBHTBH HGB10.1(L)12.0 - 16.0 g/dLTBHTBH HCT30.0(L)36.0 - 48.0 %TBHTBH MCV81.3 81.0 - 99.0 fLTBHTBH MCH27.426.7 - 34.0 pgTBHTBH MCHC33.729.9 - 35.2 g/dLTBH TBH RDW14.211.0 - 15.0 %TBHTBH LAE755808 - 450 10 3/uLTBHTBH MPV9.59.5 - 13.5 [...] EDT Narrative Authorizing ProviderResult TypeResult StatusKrupa Olmstead [facility] HOSPITALOINT OF CARE TEST ENTER/EDIT ORDERABLESFinal Result [...] GP B CULTURE+RFLX Performed at: - [facility] ArdenvoirTBHSTREP GP B CULTURE+[id number] [place], [place] [id number] GP B CULTURE+RFLXLab Director: Al Salcedo PhD, Phone: [phone] (Source)Anatomical Location / Laterality Collection Method / VolumeCollection TimeReceived Time07/07/2025 3:30 PM EDT 07/07/2025 9:21 PM EDT Narrative JENNANC - 07/12/2025 3:08 PM EST Authorizing ProviderResult TypeResult StatusAmy [facility] BLOOD ORDERABLES Final ResultPerforming OrganizationAddressCity/State/ZIP CodePhone Number [facility] * US OB BPP W NON-STRESS (07/06/2025 9:55 AM EDT) Only the most recent of2 resultswithin the time period is included. Anatomical RegionLateralityModalityOtherSpecimen (Source)Anatomical Location / LateralityCollection Method / VolumeCollection TimeReceived Time07/06/2025 9:55 AM EDT Narrative 07/06/2025 9:57 AM EDT [facility] ?[address] ? [place] [address] ? Ultrasound Report ? Signed ? Patient: RUBINA,NATALIE S ?MR#: [id number] ?? : 1985 ?Acct:[id number] ?? Age/Sex: 40 / F ?ADM Date: 10/28/25 ?? Loc: [facility] ??250-1 ? Attending Dr: Candice Anderson D.O. ? Ordering Physician: Candice Anderson D.O. ?? Date of Service: 07/06/25 ?? Procedure(s): US OB BPP w non-stress ?? Accession Number(s): [id number] ? cc: Candice Anderson D.O.; Lynn Jose D.O. ? [facility] ? [address] ? [place] [address] ? Patient Name: ?? NATALIE CESPEDES ? MRN: [facility]:[id number] ? date: 1985 ?Sex: F ?? Assigned Patient Location: [facility] ?? Current Patient Location: [facility] ?? Accession/Order Number: [id number] ?? Exam Date: 07/06/2025 ??09:32 ?Report Date: [...] Dictation Location: RADIO-PC-02 ? Electronically authenticated by: [id number] ??Y ?? Date: 07/06/2025 ??09:55 ? Dictated By: ?Joan Womack M.D. ? Signed By: ?07/06/25 0957 ? DD/ 0955 ? TD/TT: ? Interim Controller: Procedure Note Radiology, Radiologist, - 07/06/2025 [place] [address] Ultrasound Report Signed Patient: NATALIE CESPEDES SMR#: [id number] : 1985Acct:[id number] Age/Sex: 40 / FADM Date: 07/06/25 Loc: [facility] 250-[address]: Candice Anderson D.O. Ordering Physician: Candice Anderson D.O. Date of Service: 07/06/25 Procedure(s): US OB BPP w non-stress Accession Number(s): [id number] cc: Candice Anderson D.O.; Lynn Jose D.O. The [place] [id number] Patient Name: NATALIE CESPEDES MRN: [facility]:[id number] date: 1985 Sex: F Assigned Patient Location: [facility] Current Patient Location: [facility] Accession/Order Number: [id number] Exam Date: 07/06/2025 09:32 Report Date: 07/06/2025 [...] Womack M.D. 07/06/2025 9:55 AM Dictation Location: [place] [address] Electronically authenticated by: [id number] Y Date: 9:55 Dictated By: Joan Womack M.D. Signed By:07/06/25956 DD/ 4 TD/TT: Interim Controller: Authorizing ProviderResult TypeResult StatusCorey Justin DOCLINISYNC IMAGINGFinal Result * (ABNORMAL) URINARY TRACT INFECTION (HTRX) (06/28/2025 11:26 AM EDT) Only the most recent of2 resultswithin the time period is included. ComponentValueRef RangeTest MethodAnalysis TimePerformed AtPathologist Signature ACINETOBACTER AIMQRBKN917.961 - 24.689 ppm06/29/2025 7:56 AM EDTHealthTrackRx at LabPortACINETOBACTER BAUMANIINot Kskfvrku75.961 - 24.689 ppm06/29/2025 7:56 AM EDTHealthTrackRx at LabPortCITROBACTER FBYBGELL601.000 - 32.015 ppm06/29/2025 7:56 AM EDTHealthTrackRx at LabPortCITROBACTER FREUNDIINot Rtbwamxg93.000 - 32.015 ppm06/29/2025 7:56 AM EDTHealthTrackRx at LabPortENTEROBACTER AEROGENES, BLOCFLH556.000 - 32.290 ppm06/29/2025 7:56 AM EDTHealthTrackRx at [facility] ENTEROBACTER AEROGENES, CLOACAENot Wgybrlyx57.000 - 32.290 ppm06/29/2025 7:56 AM EDTHealthTrackRx at LabPortENTEROCOCCUS FAECALIS, GDHECLN078.000 - 33.043 ppm 06/29/2025 7:56 AM EDTHealthTrackRx at LabPortENTEROCOCCUS FAECALIS, FAECIUMNot Epejxfmi62.000 - 33.043 ppm06/29/2025 7:56 AM EDTHealthTrackRx at [facility] ESCHERICHIA COLI20.735(A)23.000 - 28.500 ppm06/29/2025 7:56 AM EDTHealthTrackRx at LabPortESCHERICHIA COLIDetected(A)23.000 - 28.500 ppm10/ 7:56 AM EDT [facility] at LabPortKLEBSIELLA PNEUMONIAE, XXVQSAU134.000 - 31.865 ppm 06/29/2025 7:56 AM EDTHealthTrackRx at LabPortKLEBSIELLA PNEUMONIAE, OXYTOCANot Sxyhvxwl01.000 - 31.865 ppm06/29/2025 7:56 AM EDTHealthTrackRx at [facility] MORGANELLA OBGJPONM700.961 - 24.689 ppm06/29/2025 7:56 AM EDTHealthTrackRx at LabPortMORGANELLA MORGANIINot Jmjwxydo35.961 - 24.689 ppm06/29/2025 7:56 AM EDT [facility] at LabPortPROTEUS MIRABILIS, CZRVICCY598.000 - 28.500 ppm 06/29/2025 7:56 AM EDTHealthTrackRx at LabPortPROTEUS MIRABILIS, VULGARISNot Jtrobmck17.000 - 28.500 ppm06/29/2025 7:56 AM EDTHealthTrackRx at [facility] PSEUDOMONAS OGLNYXRTSI926.000 - 31.801 ppm06/29/2025 7:56 AM EDTHealthTrackRx at LabPortPSEUDOMONAS AERUGINOSANot Ogojfhtu32.000 - 31.801 ppm06/29/2025 7:56 AM EDTHealthTrackRx at LabPortSTAPHYLOCOCCUS PNLTDF203.000 - 31.595 ppm06/29/2025 7:56 AM EDTHealthTrackRx at LabPortSTAPHYLOCOCCUS AUREUSNot Faviprbr56.000 - 31.595 ppm06/29/2025 7:56 AM EDTHealthTrackRx at LabPortSTREPTOCOCCUS AGALACTIAE (GROUP B STREP)026.000 - 32.435 ppm06/29/2025 7:56 AM EDTHealthTrackRx at LabPortSTREPTOCOCCUS AGALACTIAE (GROUP B STREP)Not Halfruwo15.000 - 32.435 ppm 06/29/2025 7:56 AM EDTHealthTrackRx at LabPortCANDIDA ALBICANS, PARAPSILOSIS, XJOBLGUHMM136.000 - 30.347 ppm10/ 7:56 AM EDTHealthTrackRx at [facility] RINA ALBICANS, PARAPSILOSIS, TROPICALISNot Tsiyhdle63.000 - 30.347 ppm 06/29/2025 7:56 AM EDTHealthTrackRx at LabPortCANDIDA NXPTPDXD942.000 - 31.618 ppm06/29/2025 7:56 AM EDTHealthTrackRx at LabPortCANDIDA GLABRATANot Detected 23.000 - 31.618 ppm06/29/2025 7:56 AM EDTHealthTrackRx at LabPortCANDIDA KRUSEI0 23.000 - 30.873 ppm06/29/2025 7:56 AM EDTHealthTrackRx at [facility] KRUSEI Not Pphvcbyh09.000 - 30.873 ppm06/29/2025 7:56 AM EDTHealthTrackRx at [facility] SERRATIA FXEYCSQIPP244.000 - 31.581 ppm06/29/2025 7:56 AM EDTHealthTrackRx at [facility] HospitalSERRATIA MARCESCENSNot Nioeyeru35.000 - 31.581 ppm06/29/2025 7:56 AM EDT [facility] at [facility] HospitalSTREPTOCOCCUS PYOGENES (GROUP A STREP)019.961 - 24.689 ppm06/29/2025 7:56 AM EDTHealthTrackRx at [facility] HospitalSTREPTOCOCCUS PYOGENES (GROUP A STREP)Not Nobujfcs64.961 - 24.689 ppm06/29/2025 7:56 AM EDTHealthTrackRx at [facility] HospitalSTAPHYLOCOCCUS EPIDERMIDIS, HAEMOLYTICUS, LUGDUNENSIS, SAPROPHYTICUS (BMGJP728.961 - 24.689 ppm06/29/2025 7:56 AM EDTHealthTrackRx at [facility] STAPHYLOCOCCUS EPIDERMIDIS, HAEMOLYTICUS, LUGDUNENSIS, SAPROPHYTICUS (URINANot Kznlqypk45.961 - 24.689 ppm06/29/2025 7:56 AM EDTHealthTrackRx at [facility] STAPHYLOCOCCUS EPIDERMIDIS, HAEMOLYTICUS, LUGDUNENSIS, SAPROPHYTICUS (URINA0 19.961 - 24.689 ppm06/29/2025 7:56 AM EDTHealthTrackRx at LabPortSTAPHYLOCOCCUS EPIDERMIDIS, HAEMOLYTICUS, LUGDUNENSIS, SAPROPHYTICUS (URINANot Aukokmbn63.961 - 24.689 ppm06/29/2025 7:56 AM EDTHealthTrackRx at [facility] Hospital[facility] B, TET M26.455(A) 23.000 - 27.500 ppm06/29/2025 7:56 AM EDTHealth[facility]Rx at [facility] B, TET M Detected(A)23.000 - 27.500 ppm06/29/2025 7:56 AM EDTHealth[facility] Specimen (Source)Anatomical Location / LateralityCollection Method / Volume Collection TimeReceived WofrZouih32/20/2025 11:26 AM EDT1 1:41 AM EDT Narrative Authorizing ProviderResult TypeResult StatusCorey Justin DOLAB BLOOD ORDERABLES Final ResultPerforming OrganizationAddressCity/State/ZIP CodePhone Number [facility] [address] [address] * OB GROWTH (06/14/2025 12:01 PM EDT)Anatomical RegionLateralityModalityOther Specimen (Source)Anatomical Location / LateralityCollection Method / Volume Collection TimeReceived Time06/14/2025 12:01 PM EDT Narrative 06/14/2025 12:04 PM EDT [facility] ?[address] ? [place] [address] ? Ultrasound Report ? Signed ? Patient: NATALIE CESPEDES ?MR#: [id number] ?? : 1985 ?Acct:[id number] ?? Age/Sex: 40 / F ?ADM Date: 06/14/25 ?? Loc: [place] ? Attending Dr: Krupa Olmstead ? Ordering Physician: Krupa Olmstead ?? Date of Service: 06/14/25 ?? Procedure(s): US OB growth ?? Accession Number(s): [id number] ? cc: Krupa Olmstead; Lynn Jose D.O. ? [facility] ? [address] ? [place] [address] ? Patient Name: ?? NATALIE CESPEDES ? MRN: [facility]:[id number] ? date: 1985 ?Sex: F ?? Assigned Patient Location: ?? Current Patient Location: ?? Accession/Order Number: [id number] ?? Exam Date: 06/14/2025 ??10:58 ?Report Date: [...] D.ODamion ??06/14/2025 12:01 PM ? Dictation Location: [facility]-PC-22 ? Electronically authenticated by: [id number] ??Y ?? Date: 06/14/2025 ??12:01 ? Dictated By: ?Jacob Almanza M.D. ? Signed By: ?06/14/254 ? DD/ 1201 ? TD/TT: ? Interim Controller: Procedure Note Radiology, Radiologist, MD - 06/14/2025 [facility] [place] [id number] Ultrasound Report Signed Patient: NATALIE CESPEDES SMR#: [id number] : 1985Acct:[id number] Age/Sex: 40 / FADM Date: 06/14/25 Loc: US Attending Dr: Krupa Olmstead Ordering Physician: Krupa Olmstead Date of Service: 06/14/25 Procedure(s): US OB growth Accession Number(s): [id number] cc: Krupa Olmstead; Lynn Jose D.O. The [address] [address] Patient Name: NATALIE CESPEDES MRN: [id number] date: 1985 Sex: F Assigned Patient Location: US Current Patient Location: US Accession/Order Number: [id number] Exam Date: 06/14/2025 10:58 Report Date: 06/14/2025 [...] PM Dictation Location: RADIO-PC-22 Electronically authenticated by: [id number] Y Date: 2:01 Dictated By: Jacob Almanza M.D. Signed By:06/14/25 1204 DD/ 1201 TD/TT: Interim Controller: Authorizing ProviderResult TypeResult StatusKrupa Olmstead [facility] IMAGINGFinal Result * US renal complete (05/11/2025 [...] Narrative 05/11/2025 12:55 PM EDT [facility] ?[facility] [place] ?[address] ? [place] [address] ? Ultrasound Report ? Signed ? Patient: Natalie Cespedes S ?MR#: [id number] ?? [id number] ? : 1985 ?Acct:[id number] ? Age/Sex: 40 / F ?ADM Date: 05/10/25 ? Loc: 3E ?Room: ??3R6511-1 ?Type: REG CLI ?? Attending Dr: Shaun [...] Procedure Note Deshaun Alanis MD - 05/11/2025 [facility] [place] [address] Ultrasound Report Signed Patient: Natalie Cespedes SMR#: [id number] : 1985Acct:[id number] Age/Sex: 40 / FADM Date: 05/10/25 Loc: Room: 9C0724-6Lhxg: REG CLI Attending Dr: Shaun Rebollar MD [...] Alanis M.D. 05/11/2025 12:52 PM Dictation Location: [place] [address] Tech: Chantelldimitri Blake Transcribed By: LAURA 05/11/25 1252 Dictated By: Deshaun Alanis II, MD 05/11/25 1252 Signed By: <Electronically signed by Deshaun Alanis II, MD inOV> 05/11/25 1252 Authorizing ProviderResult TypeResult StatusShaun Rebollar MDIMG US PROCEDURES Final Result * (ABNORMAL) CBC auto differential (05/10/2025 11:10 PM EDT)ComponentValueRef RangeTest MethodAnalysis TimePerformed AtPathologist BafnflepsVJG83.3(H)3.8 - 11.6 [CFU]/mL05/10/2025 11:25 PM [facility] CtrUNCORRECTED WHITE BLOOD COUNT19.3(H)3.8 - 11.6 10*3/uL05/10/2025 11:25 PM [facility] CtrRBC4.053.60 - 5.00 10*6/uL05/10/2025 11:25 PM [facility] ReqZSXBFBEFKG10.3(L)11.8 - 15.4 g/dL05/10/2025 11:25 PM EDT [facility] WovMADHVKVLRT65.0(L)34.0 - 46.4 %05/10/2025 11:25 PM [facility] DcrMID92.480 - 100 fL05/10/2025 11:25 PM EDT [facility] WkhFRH25.924.7 - 34.3 pg05/10/2025 11:25 PM EDT [facility] FkgNPYV50.232.0 - 35.0 g/dL05/10/2025 11:25 PM EDT [facility] CtrRED CELL DISTRIBUTION WIDTH, RDW14.611.9 - 15.3 %05/10/2025 11:25 PM [facility] CtrPLATELET FWKYV210070 - 450 10*3/uL05/10/2025 11:25 PM [facility] CtrMEAN PLATELET VOLUME, MPV7.36.3 - 10.7 fL05/10/2025 11:25 PM [facility] CtrNEUTROPHILS, %91.2. %05/10/2025 11:25 PM [facility]tr LYMPHOCYTES, %4.8. %05/10/2025 11:25 PM [facility]tr MONOCYTE/MACROPHAGE, %3.2. %05/10/2025 11:25 PM [facility] CtrEOSINOPHILS, %0.4. %05/10/2025 11:25 PM [facility]tr BASOPHILS, %0.4. %05/10/2025 11:25 PM [facility] CtrNRBC0.1 0 - 0.5 /100{WBC}05/10/2025 11:25 PM [facility]tr VKQEIGZKHTE43.6(H)1.8 - 7.7 10*3/uL05/10/2025 11:25 PM [facility] CtrLYMPHOCYTES0.9(L)1.00 - 4.8 10*3/uL05/10/2025 11:25 PM [facility] CtrMONOCYTES0.60.0 - 0.8 10*3/uL05/10/2025 11:25 PM EDT [facility] CtrEOSINOPHILS0.10.0 - 0.45 10*3/uL05/10/2025 [facility] CtrBASOPHILS0.10.0 - 0.2 10*3/uL05/10/2025 11:25 PM [facility] CtrSpecimen (Source)Anatomical Location / LateralityCollection Method / VolumeCollection TimeReceived TimeBlood (Blood)05/10/2025 11:10 PM EDT05/10/2025 11:18 PM EDT Narrative Authorizing ProviderResult TypeResult StatusShaun Rebollar MDLAB BLOOD ORDERABLESFinal ResultPerforming OrganizationAddressCity/State/ZIP CodePhone Number [facility] [address] [place] [address], [facility] [address] [place] [address] * Lipase (05/10/2025 11:10 PM EDT)ComponentValueRef RangeTest MethodAnalysis TimePerformed AtPathologist OkbfnjdbbNCKMXG73.011.0 - 82.0 U/L05/10/2025 11:45 PM [facility] CtrSpecimen (Source)Anatomical Location / LateralityCollection Method / VolumeCollection TimeReceived TimeOther Topography unknown / Mgtinhr5505/10/2025 11:10 PM EDT05/10/2025 11:18 PM EDT Narrative Authorizing ProviderResult TypeResult StatusShaun MONTILLA BLOOD ORDERABLESFinal ResultPerforming OrganizationAddressCity/State/ZIP CodePhone Number [facility] [address] [place] [address], [facility] [address] [place] [address] * Amylase (05/10/2025 11:10 PM EDT)ComponentValueRef RangeTest MethodAnalysis TimePerformed AtPathologist HvejvmcjpPJRSBSN2202 - 103 U/L05/10/2025 11:45 PM [facility] CtrSpecimen (Source)Anatomical Location / LateralityCollection Method / VolumeCollection TimeReceived TimeOther Topography unknown / Ochrtju1605/10/2025 11:10 PM EDT05/10/2025 11:18 PM EDT Narrative Authorizing ProviderResult TypeResult StatusShaun MONTILLA BLOOD ORDERABLESFinal ResultPerforming OrganizationAddressCity/State/ZIP CodePhone Number [facility] [address] [place] [address], [facility] [address] [place] [address] * (ABNORMAL) Comprehensive metabolic panel (05/10/2025 11:10 PM EDT)Component ValueRef RangeTest MethodAnalysis TimePerformed AtPathologist SignatureGlucose 111(H)70 - 100 mg/dL05/10/2025 11:45 PM [facility]tr Comment: Random Glucose Reference Range is dependent on time and content of last meal. Glucose of more than 200 mg/dL in a nonstressed, ambulatory subject supports the diagnosis of Diabetes Mellitus. ADA recommended reference range CEL641 - 25 mg/dL05/10/2025 11:45 PM [facility] CtrCREATININE 0.680.60 - 1.20 mg/dL05/10/2025 11:45 PM [facility] Ctr ESTIMATED GFR>60. 11:45 PM [facility] QazGxlsfg763 136 - 145 mmol/L05/10/2025 11:45 PM [facility] CtrPotassium, Bld3.93.5 - 5.1 mmol/L05/10/2025 11:45 PM [facility]tr Lnultflg06224 - 107 mmol/L05/10/2025 11:45 PM [facility]tr Carbon Axpeprm93.3(L)21.0 - 31.0 mmol/L05/10/2025 11:45 PM [facility] CtrAnion Gap14.66.0 - 15.009 11:45 PM [facility] CtrCalcium9.18.6 - 10.3 mg/dL05/10/2025 11:45 PM [facility] CtrTOTAL PROTEIN6.3(L)6.4 - 8.9 g/dL05/10/2025 11:45 PM [facility] CtrALBUMIN LEVEL3.63.5 - 5.7 g/dL05/10/2025 11:45 PM EDT [facility] CtrGLOBULIN2.7g/dL05/10/2025 11:45 PM [facility] CtrALBUMIN/GLOBULIN RATIO1.309 11:45 PM [facility] CtrBILIRUBIN,TOTAL0.40.3 - 1.0 mg/dL05/10/2025 11:45 PM EDT [facility] CtrASPARTATE AMINO TAFLLJBITVO9501 - 39 U/L05/10/2025 11:45 PM [facility] CtrALANINE RDXFHVCXGPWXLTFC352 - 52 U/L 05/10/2025 11:45 PM [facility] CtrALKALINE JCVGFXQOKQF7658 - 104 U/L05/10/2025 11:45 PM [facility] CtrCREATININE CLR CALC UEHFMXHA135.8705/10/2025 11:45 PM [facility] CtrSpecimen (Source)Anatomical Location / LateralityCollection Method / VolumeCollection TimeReceived TimeOtherTopography unknown / Vwqojbo5105/10/2025 11:10 PM EDT 05/10/2025 11:18 PM EDT Narrative Authorizing ProviderResult TypeResult StatusShaun Rebollar MDLAB BLOOD ORDERABLESFinal ResultPerforming OrganizationAddressCity/State/ZIP CodePhone Number [facility] [address] [facility] [place] [address], [place] [facility] [address] [place] [address] * fibronectin (05/10/2025 11:05 PM EDT)ComponentValueRef RangeTest Method Analysis TimePerformed AtPathologist SignatureFETAL FIBRONECTINNegative Rhkyndph06/02/2025 12:02 AM [facility] CtrSpecimen (Source) Anatomical Location / LateralityCollection Method / VolumeCollection Time Received TimeOtherTopography unknown / Agdzwtj9505/10/2025 11:05 PM EDT 05/10/2025 11:19 PM EDT Narrative [facility] - 05/11/2025 12:02 AM EDT Comment patients 22 - 34 6/7 weeks prior to vaginal exam Authorizing ProviderResult TypeResult StatusShaun Rebollar MDLAB BODY FLUIDS AND STOOLS ORDERABLESFinal ResultPerforming OrganizationAddressCity/State/ZIP Code Phone Number [facility] [address] [place] [address], [facility] [address] [place] [address] * (ABNORMAL) AEROBIC DAVE CHARGE (NMIC56) (05/10/2025 10:30 PM EDT)ComponentValue Ref RangeTest MethodAnalysis TimePerformed AtPathologist SignatureAMIKACIN<16 (S)05/13/2025 7:51 AM [facility] CtrAMOXACILLIN/K CLAVULANATE<8/4(S)05/13/2025 7:51 AM [facility] AMPICILLIN>16(R)05/13/2025 7:51 AM [facility] AMPICILLIN/MVRMSNFIY45/8(I)05/13/2025 7:51 AM [facility] CtrAZTREONAM<4(S)05/13/2025 7:51 AM [facility] CtrCEFAZOLIN <2(S)05/13/2025 7:51 AM [facility] CtrCEFEPIME<2(S) 05/13/2025 7:51 AM [facility] CtrCEFTAZIDIME<1(S)05/13/2025 7:51 AM [facility] CtrCEFTAZIDIME/AVIBACTAM<4(S)05/13/2025 7:51 AM [facility] CtrCEFTOLOZANE/TAZOBACTAM<2(S) 05/13/2025 7:51 AM [facility] CtrCEFTRIAXONE<1(S)05/13/2025 7:51 AM [facility] CtrCEFUROXIME<4(S)05/13/2025 7:51 AM [facility] CtrCIPROFLOXACIN<0.25(S)05/13/2025 7:51 AM [facility] CtrERTAPENEM<0.5(S)05/13/2025 7:51 AM [facility] CtrGENTAMICIN<2(S)05/13/2025 7:51 AM [facility] CtrLEVOFLOXACIN<0.5(S)05/13/2025 7:51 AM [facility] CtrMEROPENEM<1(S)05/13/2025 7:51 AM [facility] Ctr MEROPENEM/VABORBACTAM<2(S)05/13/2025 7:51 AM [facility]tr NITROFURANTOIN<32(S)05/13/2025 7:51 AM [facility]tr PIPERACILLIN/TAZOBACTAM<8(S)05/13/2025 7:51 AM [facility] CtrTETRACYCLINE<4(S)05/13/2025 7:51 AM [facility] TIGECYCLINE<2(S)05/13/2025 7:51 AM [facility] CtrTOBRAMYCIN <2(S)05/13/2025 7:51 AM [facility]tr TRIMETHOPRIM/SULFAMETHOXAZOLE<0.5/9.5(S)05/13/2025 7:51 AM [facility] CtrSpecimen (Source)Anatomical Location / Laterality Collection Method / VolumeCollection TimeReceived TimeUrineUrine specimen obtained by clean catch procedure / Tjplcru5505/10/2025 10:30 PM EDT05/10/2025 10:55 PM EDTComment:Clean-Voided Midstream Narrative Authorizing ProviderResult TypeResult StatusShaun Rebollar MDFIRELANDSFinal ResultPerforming OrganizationAddressCity/State/ZIP CodePhone Number [facility] [address] [place] [address], [facility] [address] [place] [address] * (ABNORMAL) Urinalysis with reflex microscopic (05/10/2025 10:30 PM EDT) ComponentValueRef RangeTest MethodAnalysis TimePerformed AtPathologist SignatureCOLOR,YKMCQXxeubqAdprci44/01/2025 10:59 PM [facility] CtrAPPEARANCE,URINETurbid(AA)Clear05/10/2025 10:59 PM [facility] CtrSPECIFICY GRAVITY,URINE1.0221.001 - 1.51006 10:59 PM [facility] CtrPH,URINE5.55.0 - 9.009 10:59 PM [facility] CtrLEUKOCYTE ESTERASE,URINE4+Frbmkace61/01/2025 10:59 PM [facility] CtrNITRITE,URINENegativeNegative 05/10/2025 10:59 PM [facility] CtrPROTEIN,KOEZB225Fjjeofox mg/dL05/10/2025 10:59 PM [facility] CtrGLUCOSE,URINE (UA) NormalNormal mg/dL05/10/2025 10:59 PM [facility] KETONES,URINE2+Fzhdrtqt52/01/2025 10:59 PM [facility] UROBILINOGEN,URINENormalNormal mg/dL05/10/2025 10:59 PM [facility] CtrBILIRUBIN,NVEZOQrbhyljkBbqmpidu42/01/2025 10:59 PM [facility] CtrOCCULT BLOOD,URINE2+Srhqmsee15/01/2025 10:59 PM EDT [facility] CtrRBC,UYKWB88-263 - 4 [HPF]05/10/2025 11:13 PM EDT [facility] CtrWBC,URINEInnumerable0 - 4 [HPF]05/10/2025 11:13 PM [facility] CtrWBC CLUMP, URINEManyNone Seen [LPF] 05/10/2025 11:13 PM [facility] CtrSQUAMOUS EPITHELIAL CELL,URINE1-20 - 2 [HPF]05/10/2025 11:13 PM [facility]tr BACTERIA,URINE2+None Seen [HPF]05/10/2025 11:13 PM [facility] CtrHYALINE CASTS,URINENone0 - 8 [LPF]05/10/2025 11:13 PM [facility] CtrMUCUS,URINE4+(AA)[LPF]05/10/2025 11:13 PM [facility] CtrSpecimen (Source)Anatomical Location / Laterality Collection Method / VolumeCollection TimeReceived DyqhOtuzj82/01/2025 10:30 PM EDT05/10/2025 10:55 PM EDT Narrative [facility] - 05/10/2025 11:13 PM EDT Comment c/o urinary symptoms or increased blood pressure Name Collection Type:: Clean-Voided Midstream Authorizing ProviderResult TypeResult StatusShaun MONTILLA URINE ORDERABLESFinal ResultPerforming OrganizationAddressCity/[facility] HospitalPhone Number [facility] [address] [place] [address], [facility] [address] [place] [address] * Urine culture (05/10/2025 10:30 PM EDT)ComponentValueRef RangeTest Method Analysis TimePerformed AtPathologist SignatureFR ORGANISMEscherichia coli 05/13/2025 7:51 AM [facility] CtrCOLONY COUNT>100,000 05/13/2025 7:51 AM [facility] CtrSpecimen (Source) Anatomical Location / LateralityCollection Method / VolumeCollection Time Received TimeUrineUrine specimen obtained by clean catch procedure / Unknown 05/10/2025 10:30 PM EDT05/10/2025 10:55 PM EDTComment:Clean-Voided Midstream Narrative Authorizing ProviderResult TypeResult StatusShaun MONTILLA MICROBIOLOGY - GENERAL ORDERABLESFinal ResultPerforming OrganizationAddressCity/State/ZIP Code Phone Number [facility] [address] [place] [address], [facility] [address] [place] [address] * Pap Smear (02/09/2025 12:00 AM EDT)Specimen (Source)Anatomical Location / LateralityCollection Method / VolumeCollection TimeReceived TimeSwabCervical swab / Unknown Narrative Authorizing ProviderResult TypeResult StatusAmy Ishan CASTANEDA CYTOLOGY ORDERABLES Final ResultPerforming OrganizationAddressCity/State/ZIP CodePhone Number EXTERNAL LAB from Last 3 Months or Most Recently Relevant to Health Maintenance Insurance
--- OUTSIDE RECORDS SUMMARY | 2025-07-21 10:10 | XMS_ITS | Encounter Summary ---
Author Organization [facility] Address [address] [place] [address] Care Team Providers Care Film Composer Name Role Phone Unavailable Primary Care Provider Unavailabl e Encounter Details DateTypeDepartmentCare Team (Latest Contact Info)Dzicummlfqe56/03/2025bstract HAL MESSINA [address] [place] [address] Greg Anderson DO [address] [place], [facility]11 Social History Tobacco UseTypesPacks/DayYears UsedDateSmoking Tobacco: Never Assessed CommentsYesSex and Gender InformationValueDate RecordedSex Assigned at Sodhhc2809/29/2024 1:58 PM ESTLegal UzrPexquk01/15/2023 6:58 PM EDTGender Identity Zpzoiq5409/29/2024 1:58 PM ESTSexual MvjmurpczuiQsohadya06/21/2025 1:58 PM EST documented as of this encounter Plan of Treatment DateTypeDepartmentCare Team (Latest Contact Info)Sqststscois08/15/2025 11:30 AM ESTPostpartum Visit HAL MESSINA [address] [place] [address] Krupa Hernandez PA [address] [place], [facility]11 documented as of this encounter Visit Diagnoses Not on filedocumented in this encounter
--- OUTSIDE RECORDS SUMMARY | 2025-07-21 10:10 | XMS_ITS | Encounter Summary ---
Author Organization [facility] Address [address] [facility] [place] [address] Care Team Providers Care Ticket Taker Name Role Phone Unavailable Primary Care Provider Unavailabl e Encounter Details DateTypeDepartmentCare Team (Latest Contact Info)Bmbiqbmaxti38/11/2025bstract [facility] Sree MESSINA [address] [place] [address] Hina Moura MD Social History Tobacco UseTypesPacks/DayYears UsedDateSmoking Tobacco: Never Assessed CommentsNoSex and Gender InformationValueDate RecordedSex Assigned at Awitgw2409/29/2024 1:58 PM ESTLegal LmaVicxeo75/15/2023 6:58 PM EDTGender Identity Zvugld0209/29/2024 1:58 PM ESTSexual ZaxpaoisxooNkliftji02/21/2025 1:58 PM EST documented as of this encounter Plan of Treatment DateTypeDepartmentCare Team (Latest Contact Info)Rnsbkpobuwr01/15/2025 11:30 AM ESTPostpartum Visit [facility] Sree MESSINA [address] [place] [address] Krupa Hernandez PA [address] [place], [place] [address] documented as of this encounter Visit Diagnoses Not on filedocumented in this encounter
--- OUTSIDE RECORDS SUMMARY | 2025-07-21 10:10 | XMS_ITS | Encounter Summary ---
Author Organization [facility] Address [address] [place] [address] Care Team Providers Care Software Program Manager Name Role Phone Unavailable Primary Care Provider Unavailabl e Encounter Details DateTypeDepartmentCare Team (Latest Contact Info)Xcotoywtrpr09/29/2025bstract HAL MESSINA [address] [place] [address] Greg Anderson DO [address] [place], [facility]11 Social History Tobacco UseTypesPacks/DayYears UsedDateSmoking Tobacco: Never Assessed CommentsYesSex and Gender InformationValueDate RecordedSex Assigned at Psyxkk6009/29/2024 1:58 PM ESTLegal AsfCixgbs09/15/2023 6:58 PM EDTGender Identity Mjmbjc4709/29/2024 1:58 PM ESTSexual CqmdsbnnifdOkgloawt10/21/2025 1:58 PM EST documented as of this encounter Plan of Treatment DateTypeDepartmentCare Team (Latest Contact Info)Lsgshraknsz99/15/2025 11:30 AM ESTPostpartum Visit HAL MESSINA [address] [place] [address] Krupa Hernandez PA [address] [place], [facility]11 documented as of this encounter Visit Diagnoses Not on filedocumented in this encounter
--- OUTSIDE RECORDS SUMMARY | 2025-07-21 10:10 | XMS_ITS | Encounter Summary ---
Author Organization [facility] Address [address] [place] [address] Care Team Providers Care Ruling Machine Operator Name Role Phone Unavailable Primary Care Provider Unavailabl e Encounter Details DateTypeDepartmentCare Team (Latest Contact Info)Xtpbjifvdnc11/03/2025External Result Encounter [facility] Department Unsolicited Greg Anderson DO [address] [facility] [address] [place], [facility]11 Social History Tobacco UseTypesPacks/DayYears UsedDateSmoking Tobacco: Never Assessed CommentsYesSex and Gender InformationValueDate RecordedSex Assigned at Zoxsgn1209/29/2024 1:58 PM ESTLegal LhyMrxpub64/15/2023 6:58 PM EDTGender Identity Snewlr3109/29/2024 1:58 PM ESTSexual QfnzqbtqttuQntzluee47/21/2025 1:58 PM EST documented as of this encounter Plan of Treatment DateTypeDepartmentCare Team (Latest Contact Info)Okpeshtcrqr57/15/2025 11:30 AM ESTPostpartum Visit [facility] Sree OBPAULO [address] [place] [address] Krupa Hernandez PA [address] [facility] [address] [place], [facility]11 documented as of this encounter Procedures Procedure NamePriorityDate/TimeAssociated DiagnosisCommentsPATHOLOGY REQUEST FOR LAB QMYYDfhrqml80/03/2025 9:24 PM EST documented in this encounter Results * PATHOLOGY REQUEST FOR LAB ERIKA (07/12/2025 9:24 PM EST)ComponentValueRef Range Test MethodAnalysis TimePerformed AtPathologist SignaturePATHOLOGY REQUEST FOR LAB CORP07/20/2025 8:50 AM [facility] CtrComment:See report. Scanned copy available in EMR.Specimen (Source)Anatomical Location / LateralityCollection Method / VolumeCollection TimeReceived TimeOther Topography unknown / Hlemqvs3007/12/2025 9:24 PM EST07/13/2025 1:06 PM EST Narrative Authorizing ProviderResult TypeResult StatusCorey Justin DOLAB BLOOD ORDERABLES Final ResultPerforming OrganizationAddressCity/State/ZIP CodePhone Number [facility] [address] [place] [address], [facility] [address] [place] [address] documented in this encounter Visit Diagnoses Not on filedocumented in this encounter
--- OUTSIDE RECORDS SUMMARY | 2025-07-21 10:10 | XMS_ITS | Encounter Summary ---
Author Organization [facility] Address [address] [facility] [place] [address] Care Team Providers Care Computer Installation Engineer Name Role Phone Unavailable Primary Care Provider Unavailabl e Encounter Details DateTypeDepartmentCare Team (Latest Contact Info)Hseehyqxcvj51/29/2025amboo flowsheet [facility]OM[facility] MESSINA [address] [facility] [address] Krupa Hernandez PA [address] [place] [address] Dr [place], [facility]11 Social History Tobacco UseTypesPacks/DayYears UsedDateSmoking Tobacco: Never Assessed CommentsYesSex and Gender InformationValueDate RecordedSex Assigned at Evcvey9009/29/2024 1:58 PM ESTLegal BcoFrwcqf60/15/2023 6:58 PM EDTGender Identity Xdwtsf2009/29/2024 1:58 PM ESTSexual IbrufruhdjkThndvttp04/21/2025 1:58 PM EST documented as of this encounter Plan of Treatment DateTypeDepartmentCare Team (Latest Contact Info)Tiuegpqwizc03/15/2025 11:30 AM ESTPostpartum Visit [facility] Sree MESSINA [address] [facility] [address] Krupa Hernandez, PA [address] [place] [address] Dr [place], [facility]11 documented as of this encounter Visit Diagnoses Not on filedocumented in this encounter
--- NOTE | 2025-07-21 10:15 | ECG_ITS ---
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
--- NOTE | 2025-07-21 10:15 | CT_ITS ---
[address] [address] Patient Name: NATALIE CESPEDES MRN: [id number] date: 1985 Sex: F Assigned Patient Location: ER Current Patient Location: [facility] Accession/Order Number: [id number] Exam Date: 07/21/2025 10:52 Report Date: 07/21/2025 11:39 At the request of: ANITHA NUNN DO Procedure: CT angio chest CT PULMONARY ANGIOGRAM WITH CONTRAST CLINICAL HISTORY: Shortness of breath and bodyaches. 9 days post . COMPARISON: None TECHNIQUE: Spiral images were obtained through the chest following intravenous administration of 100 mL of Omnipaque 350. Images were reviewed using both narrow and wide window settings. Sagittal, coronal and 3 D volume-rendered reconstructions were performed and reviewed. This CT exam was performed using one or more following dose reduction techniques: Automated exposure control, adjustment of the mA and/or kV according to patient size, or use of iterative reconstruction technique. FINDINGS: The heart is slightly prominent. There is a trace amount pericardial fluid. No aortic aneurysm or dissection is seen. There is adequate opacification of the pulmonary arteries. No definite emboli are identified.. Small mediastinal and hilar lymph nodes are seen. The bony structures are intact. There is subtle groundglass density which is predominantly dependent and therefore probably atelectasis. There is no additional consolidation, effusion or pneumothorax. There are multiple scattered calcified and noncalcified nodules measuring up to 8 - 9 mm. Limited cuts through the upper abdomen show no contributory abnormality. CT/CT angio chest IMPRESSION: NO CT EVIDENCE OF PULMONARY EMBOLISM. MILD CARDIOMEGALY. GROUNDGLASS PARENCHYMAL CHANGES, PROBABLY ATELECTASIS. SCATTERED CALCIFIED AND NONCALCIFIED PULMONARY NODULES. CLINICAL CORRELATION IS RECOMMENDED ALONG WITH FOLLOW-UP, WARRANTED. Impression dictated by: Joan Womack M.D. 07/21/2025 11:39 AM Dictation Location: [place] [address] Electronically authenticated by: [id number] Y Date: 07/21/2025 11:39
[2025-07-21 10:53] LABS: Hemoglobin 7.5 g/dL (12.0-16.0); Immature Granulocytes Abs Auto 0.28 10^3/uL (0.00-0.03); Immature Granulocytes Pct Auto 2.6 % (0.0-0.5); Lymphocytes Absolute Auto 2.2 10^3/uL (1.2-3.8); Mean Corpuscular HGB Conc 31.4 g/dL (29.9-35.2); Mean Corpuscular Hemoglobin 25.7 pg (26.7-34.0); Mean Corpuscular Volume 81.8 fL (81.0-99.0); Platelet Count 470 10^3/uL (150-450); Red Blood Count 2.92 10^6/uL (4.20-5.40); White Blood Count 10.9 10^3/uL (4.0-11.0)
[2025-07-21 10:55] LABS: Hematocrit 23.9 % (36.0-48.0)
[2025-07-21 11:11] LABS: SARS-CoV-2 Ag NEGATIVE (NEGATIVE)
--- NOTE | 2025-07-21 11:19 | ED.GENADUL1 ---
HPI HPI - General Adult General Chief complaint: Weakness Stated complaint: SOB, ACHES Time Seen by Provider: 07/21/25 10:05 Source: patient Mode of arrival: walk-in Limitations: no limitations History of Present Illness HPI narrative: Patient is a 40-year-old female presenting to the emergency department at the request of her supervisor finishing office to rule out cardiomyopathy or pulmonary embolism. The patient is 9 days postop from an uncomplicated section. She did have a history of gestational diabetes, however no other issues with the . She states that since the , she has been feeling short of breath when she walks around. She also feels weak and feels like her color is off. She denies any active chest pain. No history of DVT/PE. No hemoptysis. No viral URI symptoms such as cough, congestion, runny nose. No fevers or chills. No leg swelling. Related Data Home Medications ?Medication ?Instructions ?Recorded ?Confirmed blood sugar diagnostic (Accu-Chek 06/29/25 06/29/25 Guide test strips) blood-glucose meter (Accu-Chek 06/29/25 06/29/25 Guide Glucose Meter) labetalol 200 mg tablet 200 mg PO TID 06/29/25 07/11/25 omeprazole 40 mg capsule,delayed 40 mg PO DAILY 06/29/25 07/11/25 release venlafaxine 150 mg 150 mg PO DAILY 06/29/25 07/11/25 capsule,extended release 24 hr Previous Rx's ?Medication ?Instructions ?Recorded ibuprofen 800 mg tablet 800 mg PO Q8H PRN pain 14 days #40 07/14/25 tabs labetalol 200 mg tablet 200 mg PO BID 30 days #60 tabs 07/14/25 oxycodone-acetaminophen 5 mg-325 1 tab PO Q6H PRN pain 5 days #20 07/14/25 mg tablet (Percocet) tabs polysaccharide iron complex 180 mg 180 mg PO DAILY anemia #14 caps 07/21/25 iron capsule (Pro Fe) Allergies Allergy/AdvReac Type Severity Reaction Status Date / Time Sulfa (Sulfonamide Allergy Intermediate Swelling Verified 07/21/25 09:57 Antibiotics) of Lip/Tongue/Throat Opioid HPI Opioid Management Most Recent Opioid Data: Last Pain Scale 2 07/15/25, 08:05 Last Pain Assessment 07/15/25, 07:45 Last MAR Pain Assessment 07/15/25, 08:05 Ur Phencyclidine Scrn, (NEGATIVE) Negative 07/11/25, 17:40 Review of Systems ROS Status of ROS 10 or more systems reviewed and unremarkable except as noted in history and below PFSH PFSH Social History Little interest or pleasure in doing things: not at all Feeling down, depressed, or hopeless: not at all Exam Narrative Exam Narrative: CONSTITUTIONAL: She appears to be tired and fatigued, nontoxic, answering questions and following commands appropriately SKIN: Warm and mildly pale. EYES: Mild conjunctival pallor. EARS, NOSE, THROAT: Moist oral mucosa. RESPIRATORY: Clear to auscultation bilaterally, no wheezes, crackles, or stridor, no use of accessory muscles CARDIOVASCULAR: Normal rate and regular rhythm. There is no S3, S4, murmur, rub. GASTROINTESTINAL: Abdomen is soft, nontender, nondistended. The incision site is clean/dry/intact without significant dehiscence or evidence of infection. MUSCULOSKELETAL: No lower extremity edema or calf tenderness. NEUROLOGIC: Patient is awake and alert. Facies were symmetrical. Constitutional Vital Signs, click to edit/add: Last Vital Signs Temp 99.1 F 07/21/25 14:37 Pulse 74 07/21/25 14:37 Resp 16 07/21/25 14:37 BP 144/98 H 07/21/25 14:37 Pulse Ox 98 07/21/25 14:30 O2 Del Method Room Air 07/21/25 10:03 Course Vital Signs Vital signs: Vital Signs Temperature 98.9 F 07/21/25 09:57 Pulse Rate 76 07/21/25 09:57 Respiratory Rate 16 07/21/25 09:57 Blood Pressure 134/90 07/21/25 09:57 Pulse Oximetry 97 07/21/25 09:57 Oxygen Delivery Method Room Air 07/21/25 09:57 Temperature 99.1 F 07/21/25 14:37 Pulse Rate 74 07/21/25 14:37 Respiratory Rate 16 07/21/25 14:37 Blood Pressure 144/98 H 07/21/25 14:37 Pulse Oximetry 98 07/21/25 14:30 Oxygen Delivery Method Room Air 07/21/25 10:03 Medical Decision Making [facility] Narrative Medical decision making narrative: Patient is a 40-year-old female presenting to the emergency department at the request of her supervisor finishing office to rule out cardiomyopathy and/or pulmonary embolism given her recent complaints of shortness of breath. Her vital signs arrival are within normal limits. She is afebrile and hemodynamically stable. She does appear pale and generally fatigued. My clinical impression is that the patient symptoms are secondary to symptomatic anemia, which is likely related to her recent section. I did obtain a CT and laboratory studies to rule out cardiomyopathy, pulmonary embolism, pneumonia, or other electrolyte/metabolic derangement. Laboratory studies were significant for normocytic anemia with a hemoglobin of 7.5. Her hemoglobin from 10 days ago was 10.1. No leukocytosis. Mild thrombocytosis. COVID/flu swabs negative. Troponin nonelevated. BNP nonelevated. CMP negative for any electrolyte or metabolic derangement. CTA independent reviewed and interpreted myself and radiology demonstrated mild cardiomegaly without acute cardiopulmonary process. No evidence of acute PE. 12 Lead EKG: Normal sinus rhythm at a rate of 76. Normal axis. No ST segment elevations. QRS, WI, and QTc interval within normal limits. Final impression: normal sinus rhythm without evidence of acute myocardial ischemia Patient's presentation is consistent with symptomatic anemia from recent section. I did consult and discuss the patient with her PAPER PRODUCTION ENGINEER, Dr. Anderson, who recommended 1 unit of packed red blood cells and a prescription for iron supplementation. Patient received 1 unit PRBCs while in the ED. She is monitored for 1 hour posttransfusion without any complications or vital sign abnormalities. Patient is stable for discharge. She was given a prescription for ProFe 180mg daily. She was instructed follow-up with Dr. Anderson in 3 to 5 days for checkup. Return precautions were given including any new or concerning symptoms. Patient understands and agrees the plan. FINAL IMPRESSION: #Acute symptomatic anemia #History of recent section DISPOSITION: Discharged home CONDITION: Good Medical Records Medical records reviewed: Yes I reviewed the patient's medical records Lab Data Lab results reviewed: Yes I reviewed the patient's lab results Labs: Lab Results 07/21/25 07/21/25 Range/Units 10:30 10:33 WBC 10.9 (4.0-11.0) 10^3/uL RBC 2.92 L (4.20-5.40) 10^6/uL Hgb 7.5 L (12.0-16.0) g/dL Hct 23.9 L* (36.0-48.0) % MCV 81.8 (81.0-99.0) fL MCH 25.7 L (26.7-34.0) pg MCHC 31.4 (29.9-35.2) g/dL RDW 14.2 (11.0-15.0) % Plt Count 470 H (150-450) 10^3/uL MPV 9.1 L (9.5-13.5) fL Neut % (Auto) 67.1 (43.0-75.0) % Lymph % (Auto) 20.3 L (20.5-60.0) % [place] % (Auto) 7.1 (1.7-12.0) % Eos % (Auto) 2.3 (0.9-7.0) % Baso % (Auto) 0.6 (0.2-2.0) % Neut # (Auto) 7.3 H (1.4-6.5) 10^3/uL Lymph # (Auto) 2.2 (1.2-3.8) 10^3/uL [place] # (Auto) 0.8 (0.3-0.8) 10^3/uL Eos # (Auto) 0.3 (0.0-0.7) 10^3/uL Baso # (Auto) 0.1 (0.0-0.1) 10^3/uL Abs Immat Gran (auto) 0.28 H (0.00-0.03) 10^3/uL Imm/Tot Granulo (auto) 2.6 H (0.0-0.5) % Sodium 138 (136-145) mmol/L Potassium 3.2 L (3.5-5.1) mmol/L Chloride 105 (98-107) mmol/L Carbon Dioxide 22.6 (21.0-32.0) mmol/L Anion Gap 13.6 BUN 12.0 (7.0-18.0) mg/dL Creatinine 0.97 (0.55-1.02) mg/dL Est GFR ( Amer) >60 (>=60 mL/min/1.73m^2) Est GFR (Non-Af Amer) >60 (>=60 mL/min/1.73m^2) BUN/Creatinine Ratio 12.4 Glucose 106 (74-106) mg/dL Calcium 8.1 L (8.5-10.1) mg/dL Total Bilirubin 0.2 (0.2-1.0) mg/dL AST 13 L (15-37) U/L ALT 23 (14-59) U/L Alkaline Phosphatase 107 (46-116) U/L Troponin I High Sens 17.1 (4.0-51.3) pg/mL NT-Pro-B Natriuret Pep 317.0 (<=450.0) pg/mL Total Protein 6.3 L (6.4-8.2) g/dL Albumin 2.1 L (3.4-5.0) g/dL Globulin 4.2 g/dL Albumin/Globulin Ratio 0.5 Influenza Type A Ag Negative Influenza Type B Ag Negative SARS-CoV-2 Ag (CV2AG) Negative (NEGATIVE) Blood Type O Positive Antibody Screen Negative Crossmatch See Detail Imaging Data CT scan - chest: Attestation: I personally reviewed and interpreted this imaging study as follows: Radiologist's impression: ITS Impressions Chest CTA 07/21/25 10:15 IMPRESSION: NO CT EVIDENCE OF PULMONARY EMBOLISM. MILD CARDIOMEGALY. GROUNDGLASS PARENCHYMAL CHANGES, PROBABLY ATELECTASIS. SCATTERED CALCIFIED AND NONCALCIFIED PULMONARY NODULES. CLINICAL CORRELATION IS RECOMMENDED ALONG WITH FOLLOW-UP, WARRANTED. Impression dictated by: Joan Womack M.D. 07/21/2025 11:39 AM Dictation Location: [place] [address] Electronically authenticated by: [id number] Y Date: 07/21/2025 11:39 ECG Data Attestation: I personally reviewed and interpreted this ECG as follows: Discharge Plan Discharge Chief Complaint: Weakness Clinical Impression: Symptomatic anemia Patient Disposition: Home, Self-Care Time of Disposition Decision: 15:07 Condition: Good Mode of Transportation: Private Vehicle Prescriptions / Home Meds: New Pro Fe 180 mg iron capsule 180 mg PO DAILY Qty: 14 0RF No Action labetalol 200 mg tablet 200 mg PO BID 30 Days Qty: 60 0RF ibuprofen 800 mg tablet 800 mg PO Q8H PRN (Reason: pain) 14 Days Qty: 40 0RF oxycodone-acetaminophen [Percocet] 5-325 mg tablet 1 tab PO Q6H PRN (Reason: pain) 5 Days Qty: 20 0RF Rx Instructions: g89.18 (DME) blood-glucose meter [Accu-Chek Guide Glucose Meter] Misc MISCELLANEOUS (DME) Accu-Chek Guide test strips Strip MISCELLANEOUS omeprazole 40 mg capsule,delayed release(DR/EC) 40 mg PO DAILY venlafaxine 150 mg capsule,extended release 24hr 150 mg PO DAILY labetalol 200 mg tablet 200 mg PO TID Print Language: Tajik Instructions: Anemia (ED) Additional Instructions: Follow up with Dr. Anderson in 3-5 days. Referrals: Lynn Jose DO [Primary Care Provider] - 1 week
[2025-07-21 11:22] LABS: Alanine Aminotransferase 23 U/L (14-59); Albumin Globulin Ratio 0.5; Albumin Level 2.1 g/dL (3.4-5.0); Alkaline Phosphatase 107 U/L (46-116); Anion Gap 13.6; Aspartate Amino Transferase 13 U/L (15-37); Blood Urea Nitrogen 12.0 mg/dL (7.0-18.0); Calcium 8.1 mg/dL (8.5-10.1); Carbon Dioxide 22.6 mmol/L (21.0-32.0); Chloride 105 mmol/L (98-107); Estimated GFR (African America >60 (>=60 mL/min/1.73m^2); Estimated GFR (Non-African Ame >60 (>=60 mL/min/1.73m^2); Globulin 4.2 g/dL; Glucose 106 mg/dL (74-106); NT Pro B Type Natriuretic Pept 317.0 pg/mL (<=450.0); Potassium 3.2 mmol/L (3.5-5.1); Sodium 138 mmol/L (136-145); Total Protein 6.3 g/dL (6.4-8.2)
[2025-07-21] MEDS: 0.9 % SODIUM CHLORIDE 500 ML 75 ML IV (13:23)
== END 2025-07-21 16:17 | disposition home or self-care (01) ==
PROVIDERS: Emergency Provider Student in an Organized Health Care Education/Training Program; PCP Family Medicine
DX: O90.81 Anemia of the puerperium (principal)
CPT/HCPCS: 36415; 36430; 71275; 80053; 83880; 84484; 85025; 86850; 86900; 86901; 86923; 87804; 87811; 93005; 99284; 99285; P9016; Q9967